=== PATIENT | female | born 1970 | race Caucasian/White ===

== ENCOUNTER → 2020-03-03 10:00 | Outpatient (BNVA) | payer SELFPAY | PROVIDERS: Visit Provider Nurse Practitioner Family | DX: S92.351A Displaced fracture of fifth metatarsal bone, right foot, initial encounter for closed fracture (principal); X58.XXXA Exposure to other specified factors, initial encounter; M79.671 Pain in right foot; M25.571 Pain in right ankle and joints of right foot | CPT/HCPCS: 73610; 73630 ==

== ENCOUNTER → 2020-03-10 14:06 | Outpatient (BNVA) | payer SELFPAY | PROVIDERS: Visit Provider Orthopaedic Surgery | DX: M79.671 Pain in right foot (principal) | CPT/HCPCS: 73630 ==

== ENCOUNTER 2020-03-10 14:57 | Outpatient (CLI) | payer SELFPAY | END 2020-03-10 14:58 | disposition home or self-care (01) | LOC: SPT 14:57 | PROVIDERS: Visit Provider Orthopaedic Surgery | DX: Z46.89 Encounter for fitting and adjustment of other specified devices (principal); S92.351D Displaced fracture of fifth metatarsal bone, right foot, subsequent encounter for fracture with routine healing; X58.XXXD Exposure to other specified factors, subsequent encounter | CPT/HCPCS: L4361 ==

== ENCOUNTER → 2020-03-29 13:43 | Outpatient (BNVA) | payer SELFPAY | PROVIDERS: Visit Provider Orthopaedic Surgery | DX: Z98.890 Other specified postprocedural states (principal); M47.816 Spondylosis without myelopathy or radiculopathy, lumbar region; Z11.59 Encounter for screening for other viral diseases | CPT/HCPCS: 73630; 87635 ==

== ENCOUNTER 2020-04-04 10:31 | Day surgery (SDC) | payer SELFPAY ==
[2020-03-30 13:33] VITALS: BMI 23.4
--- NOTE | 2020-03-30 13:42 | ANES.PREANE2 ---
Pre-Anesthetic Assessment Pre-Anesthetic Assessment: Height/Weight: Height 1.55 m Weight 56.245 kg Preop Diagnosis: right 5th metatarsal ORIF Proposed Procedure: Operation Date: 04/04/20 12:20 Proposed Procedures p ORIF 5th Metatarsal 39378 S92.35(Not Applicable) - Brown Sullivan DO Familial anesthetic complications: None Social: Social History: Tobacco and No alcohol Exam: Pre-Anes Outpt Exam: alert, oriented x 3, clear to auscultation bilaterally and regular rate & rhythm Airway: MP: 3 Dentition: Other (no teeth) Pulmonary: Pulmonary: COPD (2 L NC at night) GI: GI: GERD Neuropsych: Neuropsych: TIA (10-15 years ago) Anesthetic Plan: ASA status: 3 Anesthesia: General Risk of > 500 ml blood loss (7ml/kg in children): No PFSH Anesthesia PFSH: Medical History Anxiety COPD (chronic obstructive pulmonary disease) Fracture of fifth metatarsal bone of right foot Gastroesophageal reflux disease Hypertension Surgical History History of tonsillectomy and adenoidectomy Hx of section Hx of cholecystectomy Hx of colonoscopy (~2012) Hx of hernia repair Hx of tubal ligation Family History Father Cancer lung Heart disease Mother Heart disease Social History Smoking and tobacco status: current every day smoker cigarettes Packs smoked per day: 1 Years cigarettes smoked: 45 Second hand smoke exposure: Yes Alcohol intake: former Former alcohol use details: sober x 20 yrs Caregiver/support person: Yes Lives independently: Yes Household members: spouse and children Marital status: Current occupational status: unemployed History of recent travel: No Current gender identity: Female Data Anesthesia Cardiac Studies: No Data to Display
[2020-04-04] VITALS (12 sets, daily range): BP systolic 90–134; BP diastolic 71–100; PULSE 76–96; RESP 18–24; TEMP 36.4–36.8; O2SAT 90–100
--- NOTE | 2020-04-04 | XR_ITS ---
WS: [id number] INTRAOPERATIVE TECHNIQUE: 5 Spot fluoroscopic images for intraoperative purposes. FLUOROSCOPY TIME: 50.6 seconds CLINICAL INFORMATION: ORIF 5th metatarsal COMPARISON: None. FINDINGS: Cannulated screw fixation across the base of the fifth metatarsal. XR/XR foot RT min 3V* [id number] IMPRESSION: Images obtained for intraoperative purposes.
--- NOTE | 2020-04-04 | SCC_ITS ---
Procedure Done: CRPP 5th metatarsal base fracture 50.6 seconds of fluoroscopic guidance, for a cumulative dose of 0.86 mGy, was provided to Dr. Sullivan by the radiology department. C-arm images of the RIGHT foot were saved for the patient's permanent record. [facility]
[2020-04-04] MEDS: sodium chloride 0.9% 1,000 ML 30 ML IV (10:56)
--- NOTE | 2020-04-04 13:20 | W.PM.OPSUD ---
Surgery/Procedure H&P Update DATE OF PROCEDURE: April 04, 2020 DATE H&P PERFORMED: 03/29/20 H&P UPDATE INFORMATION: I have reviewed H&P completed within last 30 days, I have examined patient prior to procedure and No changes to prior documentation PREOP DIAGNOSIS: right 5th metatarsal ORIF PLANNED PROCEDURE: Operation Date: 04/04/20 12:00 Proposed Procedures p ORIF 5th Metatarsal 99527 S92.35(Not Applicable) - Brown Sullivan, DO
--- NOTE | 2020-04-04 13:31 | P.ANESUD_ITS ---
Pre-Anesthetic Update Pre-Anesthetic Assessment: Date of Surgery/Procedure: 04/04/20 Preop Kym gnosis: right 5th metatarsal ORIF Proposed Procedure: Operation Date: 04/04/20 12:00 Proposed Procedures p ORIF 5th Metatarsal 18909 S92.35(Not Applicable) - Brown Sullivan, DO Any changes to Pre-Anesthetic Assessment?: No Last Intake: Intake Last Liquid Date 04/03/20 Last Liquid Time 23:00 Last Solid Date 04/03/20 Last Solid Time 20:00 Vitals: Temperature 98.2 F 04/04/20 10:36 Temperature Source Temporal Artery S can 04/04/20 10:36 Pulse Rate 88 04/04/20 10:36 Respiratory Rate 18 04/04/20 10:36 Blood Pressure 115/100 04/04/20 10:36 Blood Pressure Alicia n 105 04/04/20 10:36 Pulse Oximetry 91 04/04/20 10:36 Oxygen Delivery Me thod 04/04/20 10:36 Exam: Pre-Anes Outpt Exam: alert, oriented x 3 and regular rate & rhythm Additional Exam Findings (including area of procedure): BBS, rhonchi--smoker Cardiac Studies: No Data to Display
--- NOTE | 2020-04-04 14:22 | PM.OP ---
Operative Report Date of procedure: April 04, 2020 Pre-op Diagnosis: right 5th metatarsal ORIF Post-op diagnosis: same Procedure Done: CRPP 5th metatarsal base fracture Surgeon: Brown Sullivan Anesthesia: MAC Estimated blood loss (mL): 5 Condition: stable Disposition: PACU Procedure: Patient was brought to the OR suite placed in supine position all areas impingement well-padded patient's prepped and draped normal sterile fashion. Stab incisions made at the base of the fifth metatarsal. Guidewire was placed AP lateral fluoroscopy ensured that the guidewire was improved position fracture was in good alignment. A 5 oh Tristian cannulated screw headless screw was placed AP lateral and oblique and sure that the hardware and fracture improved positions. Wound was irrigated and closed with nylon suture patient was placed back in her boot and transferred to the PACU in stable condition
--- NOTE | 2020-04-04 14:46 | SUR.PHASEI ---
1432 P T MORE ALERT WHEEZING ON EXHALE WITH DIMINISHED LUNG SOUNDS THRU OUT,VSS ALBUTERAL NEB GIVEN. VSS.
[2020-04-04] MEDS: oxyCODONE-APAP 5-325 mg Tablet PO (15:15)
--- NOTE | 2020-04-04 16:29 | SUR.PHASEII ---
1600: patient O2 at 92 on 2L
--- NOTE | 2020-04-04 16:30 | SUR.PHASEII ---
Patient has been instructed to take deep breaths and to wear her home oxygen when she gets home until at least tomorrow. She states she wears it at night and during the day sometimes when she feels short of breath.
--- NOTE | 2020-04-04 17:07 | PM.PACU ---
PACU note PACU note: VSS, struggled with SaO2 given COPD/smoking hx and home O2 Post-Anesthesia Exam: awake Disposition: discharged
[2020-04-04] MEDS: oxyCODONE-APAP 5-325 mg Tablet 3 TAB PO (17:20)
--- NOTE | 2020-04-04 17:29 | SUR.PHASEII ---
Dr. Manzano OK with patient going home to use Home O2 at 2L with sat at 93%. Patient states she feels like she can breathe well. Patient was given 3 [id number]/acetaminophen 325mg to take home with her. Her RX was electronically sent to [facility] in [place], which closes at 1700. patient did not leave ops until 1720.
== END 2020-04-04 17:20 | disposition home or self-care (01) ==
PROVIDERS: Visit Provider Orthopaedic Surgery
PROC: (CPT 28485; principal; 2020-04-04 12:00)
DX: S92.351A Displaced fracture of fifth metatarsal bone, right foot, initial encounter for closed fracture (principal); X58.XXXA Exposure to other specified factors, initial encounter; J44.9 Chronic obstructive pulmonary disease, unspecified; Z99.81 Dependence on supplemental oxygen; K21.9 Gastro-esophageal reflux disease without esophagitis; Z86.73 Personal history of transient ischemic attack (TIA), and cerebral infarction without residual deficits; I10 Essential (primary) hypertension; F17.210 Nicotine dependence, cigarettes, uncomplicated
CPT/HCPCS: 28485; 12345; 73630; 76000; C1713; J0690; J2250; J2370; J2405; J2704; J3010; J3490; J7030; J7611

== ENCOUNTER → 2020-05-17 13:16 | Outpatient (BNVA) | payer SELFPAY | PROVIDERS: Visit Provider Orthopaedic Surgery | DX: S92.351A Displaced fracture of fifth metatarsal bone, right foot, initial encounter for closed fracture (principal); X58.XXXA Exposure to other specified factors, initial encounter | CPT/HCPCS: 73630 ==

== ENCOUNTER → 2020-06-28 14:05 | Outpatient (BNVA) | payer SELFPAY | PROVIDERS: PCP Family Medicine; Visit Provider Orthopaedic Surgery | DX: S92.351A Displaced fracture of fifth metatarsal bone, right foot, initial encounter for closed fracture (principal); X58.XXXA Exposure to other specified factors, initial encounter | CPT/HCPCS: 73630 ==

== ENCOUNTER → 2020-08-09 14:17 | Outpatient (BNVA) | payer SELFPAY | PROVIDERS: PCP Family Medicine; Visit Provider Orthopaedic Surgery | DX: S92.351A Displaced fracture of fifth metatarsal bone, right foot, initial encounter for closed fracture (principal); X58.XXXA Exposure to other specified factors, initial encounter | CPT/HCPCS: 73630 ==

== ENCOUNTER 2020-08-10 15:08 | Outpatient (CLI) | payer SELFPAY ==
--- NOTE | 2020-08-10 15:30 | CT_ITS ---
WS: [id number] CT RIGHT FOOT WITHOUT CONTRAST. 3-D IMAGING ALSO SUBMITTED. HISTORY: S92.351A - Displaced fracture of fifth metatarsal bone, right foot, initial encounter for cl osed fracture Technique: All CT scans at [facility] use at least one of these dose optimization techniq ues: automated exposure control; mA and/or kV adjustment per patient size (includes targeted exams wh ere dose is matched to clinical indication); or iterative reconstruction. DLP: 870.87 mGycm COMPARISON: 08/09/2020, 06/28/2020 Screw fixation through the fifth metatarsal. There is a small gap at the fracture site suggests there may be incomplete healing. The gap is less than 2 mm. Screw remains normally positioned along the me tatarsal diaphysis. No osteomyelitis or bone destruction is identified. No abnormality appreciated by CT. CT/CT foot RT wo con* [id number] IMPRESSION: 1. Screw fixation fifth proximal metatarsal fracture appears in good alignment . 2. Persistent gap may represent nonfusion at the fracture site but the gap is less than 2 mm.
== END 2020-08-10 15:09 | disposition home or self-care (01) ==
PROVIDERS: PCP Family Medicine; Visit Provider Orthopaedic Surgery
DX: S92.351A Displaced fracture of fifth metatarsal bone, right foot, initial encounter for closed fracture (principal); X58.XXXA Exposure to other specified factors, initial encounter
CPT/HCPCS: 73700

== ENCOUNTER → 2020-10-26 14:32 | Outpatient (BNVA) | payer SELFPAY | PROVIDERS: PCP Family Medicine; Visit Provider Podiatrist Foot & Ankle Surgery | DX: M79.671 Pain in right foot (principal) | CPT/HCPCS: 73630 ==

== ENCOUNTER 2021-03-23 11:44 | Inpatient (IN) | payer SELFPAY ==
[2021-03-23] VITALS (9 sets, daily range): BP systolic 116–160; BP diastolic 77–94; PULSE 81–97; RESP 15–24; TEMP 36.2–36.7; O2SAT 65–97; BMI 23.0
--- NOTE | 2021-03-23 12:36 | CT_ITS ---
WS: [id number] Exam: CT angio chest PE protcl [id number] Date/Time of Exam: 03/23/2021 2:46 PM Reason For Exam: dyspnea DLP: 487.[address] scans at [facility] use at least one of these dose optimization techniques: automated e xposure control; mA and/or kV adjustment per patient size (includes targeted exams where dose is matc hed to clinical indication); or iterative reconstruction. CTA of the chest. No sign of acute PE. The central pulmonary arteries are clear. The thoracic aorta is normal in calibe r. The airway is patent. The lungs are clear and fully expanded. No suspicious pulmonary mass or nodu le. No significant lymphadenopathy in the chest. No pleural or pericardial effusion. Prominent thyroi d gland. CT sections the upper abdomen show signs of previous cholecystectomy. Old fracture of the po sterior right eighth rib. Remaining bony structures are unremarkable. The chest wall is intact. CT/CT angio chest PE protcl [id number] IMPRESSION: 1. No sign of acute PE. 2. No mass, lymphadenopathy or other significant finding in the chest.
--- NOTE | 2021-03-23 12:36 | ECG_ITS ---
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 Measurements Intervals [place] Rate: 88 P: 70 [place]: 126 QRS: 49 QRSD: 74 T: 78 QT: 359 QTc: 436 Interpretive Statements SINUS RHYTHM No previous ECG available for comparison Electronically Signed On 03-24-2021 16:13:08 MATHEMATICAL TECHNICIAN by Alysha Garcia M.D. [email or web address]
--- NOTE | 2021-03-23 12:36 | XR_ITS ---
WS: [id number] Exam: XR chest 1V portable [id number] Date/Time of Exam: 03/23/2021 12:36 PM Reason For Exam: dyspnea/cough Comparison 08/11/2018. The lungs are hyperinflated and clear. Normal cardiomediastinal silhouette. No pleural effusions. Reg ional bony elements are intact. Monitoring leads superimpose the chest. XR/XR chest 1V portable [id number] IMPRESSION: 1. Pulmonary hyperinflation which might indicate obstructive lung disease. No a cute process.
--- NOTE | 2021-03-23 12:51 | W.ED.SOB ---
HPI - SOB/Dyspnea General: Chief Complaint: Shortness of Breath/Dyspnea Stated Complaint: COPD:O2 IN 70'S,DIFF BREATHING,STATES PNEUMONIA? Time Seen by Provider: 03/23/21 12:36 History of Present Illness: HPI Narrative: 50-year-old female presents emergency room with shortness of breath productive cough. She is seen really any symptoms for the last couple months gotten worse recently. She is having to wear oxygen chronically. She usually is uses it as needed, she started at 2 to 3 L now she is up to 5 L on arrival here. She is awake and alert having difficult time getting a good oxygen saturation to track peripherally centrally.she does not appear cyanotic and she is only mildly dyspneic. She has noticed perioral cyanosis. She denies any chest pain. She has not been vaccinated for Covid nor she previously been known to have Covid. No vomiting or diarrhea. MD elicited complaint: shortness of breath and cough Pertinent past history: COPD Onset (ago): week(s) Timing: constant Severity: moderate Exacerbating factors: exertion and coughing Relieving factors: oxygen and rest Known history of: COPD Associated symptoms: Reports chest congestion and cough; Deny abdominal pain, chest pain, diaphoresis, dizziness, extremity pain, fever(s), hemoptysis, lightheadedness, myalgias, nausea, orthopnea, palpitations, paresthesias, polydipsia, polyuria, rash, sense of impending doom, syncope or vomiting Treatment prior to arrival: oxygen and bronchodilator Review of Systems Const: Denies: fever(s) or diaphoresis ENMT: Denies: throat pain, ear or mastoid pain, nasal discharge or nasal congestion Card: Denies: chest pain, palpitations, lightheadedness, syncope or orthopnea Resp: Reports: chest congestion; Denies: hemoptysis GI: Denies: abdominal pain, nausea or vomiting : Denies: flank pain, difficulty voiding, dysuria, urinary frequency or urinary urgency Musc: Denies: extremity pain Skin/Breast: Denies: rash or pruritus Neuro: Denies: dizziness Endo: Denies: polyuria or polydipsia PFS ED PFSH: Medical History (Updated 03/28/21 @ 15:18 by Kentrell Garcia DO) Anxiety COPD (chronic obstructive pulmonary disease) Fracture of fifth metatarsal bone of right foot Gastroesophageal reflux disease Hypertension Right ankle pain Right foot pain Tenosynovitis of foot Surgical History History of tonsillectomy and adenoidectomy Hx of section Hx of cholecystectomy Hx of colonoscopy (~2012) Hx of hernia repair Hx of tubal ligation Family History Father Cancer lung Heart disease Mother Heart disease Social History (Updated 03/23/21 @ 16:11 by Haider Velasco MD) Smoking and tobacco status: current every day smoker cigarettes Packs smoked per day: 1 Years cigarettes smoked: 45 Second hand smoke exposure: Yes Alcohol intake: former Former alcohol use details: sober x 20 yrs Caregiver/support person: Yes Lives independently: Yes Household members: spouse and children Marital status: service: No Current occupational status: unemployed History of recent travel: No Current gender identity: Female Special lauryn needs: No Agree to transfusion: No Financial difficulty paying for basics: Very Hard Physical Exam Const: COMMON NORMALS: no acute distress GENERAL APPEARANCE: cooperative and comfortable ORIENTATION/CONSCIOUSNESS: Yes awake, Yes oriented to person, Yes oriented to place and Yes oriented to time HENMT: COMMON NORMALS: normocephalic, atraumatic and hearing grossly normal bilaterally HEAD & SCALP: normocephalic and atraumatic Neck/C-Spine: COMMON NORMALS: no JVD Resp: AUSCULTATION: rhonchi, wheezes and diminished lung sounds Cardio: COMMON NORMALS: no JVD, regular rate, regular rhythm and No murmurs present (Cardio) RATE: regular rate RHYTHM: regular rhythm GI: COMMON NORMALS: Soft to palpation and No hepatosplenomegaly present AUSCULTATION: Yes normoactive bowel sounds PALPATION: Yes Soft to palpation, No Tenderness to palpation present (GI), No Guarding due to palpation present (GI) and Yes No hepatosplenomegaly present Extremity: COMMON NORMALS: normal to inspection, capillary refill normal, no clubbing, cyanosis or edema, no calf tenderness and no pedal edema Neuro: SENSORIUM/ORIENTATION: Yes oriented to person, Yes oriented to place and Yes oriented to time Skin: COMMON NORMALS: no rashes or lesions noted GENERAL SKIN EXAM: no rashes or lesions noted Course Vital Signs: Vital signs: Vital Signs Temperature 97.3 F L 03/25/21 15:28 Pulse Rate 69 03/25/21 15:28 Respiratory Rate 17 03/25/21 15:28 Blood Pressure 106/62 03/25/21 15:28 Pulse Oximetry 94 03/25/21 15:28 MDM - SOB/Dyspnea MDM Narrative: Medical decision making narrative: Acute exacerbation of COPD with hypercapnic respiratory failure will admit discussed with hospitalist orders written Lab Data: Labs: Lab Results 03/23/21 03/23/21 03/23/21 12:53 12:53 12:53 WBC 9.9 10^3/uL 10^3/ uL (4.0-10.0) RBC 5.00 10^6/uL 10^6 /uL (4.1-5.3) Hgb 15.6 g/dL H g/dL (11.5-15.3) Hct 47.6 % H % (37.0-47.0) MCV 95.2 fl fl (81-99) MCH 31.2 pg pg (28.0-34.0) MCHC 32.8 g/dL g/dL (30.0-36.0) RDW 15.3 % H % (12.1-15.1) Plt Count 182 10^3/cmm 10^3 /cmm (130-400) MPV 10.9 fL H fL (7.4-10.4) Neut % (Auto) 63.4 % % Lymph % (Auto) 26.9 % % [place] % (Auto) 5.1 % % Eos % (Auto) 3.5 % % Baso % (Auto) 0.5 % % Neut # (Auto) 6.28 10^3/uL 10^3 /uL (1.8-7.7) Lymph # (Auto) 2.7 10^3/uL 10^3/ uL (0.8-4.8) [place] # (Auto) 0.5 10^3/uL 10^3/ uL (0.2-0.9) Eos # (Auto) 0.4 10^3/uL 10^3/ uL (0.0-0.8) Baso # (Auto) 0.1 10^3/uL 10^3/ uL (0.0-0.1) Nucleated RBC % (a uto) 0 % % Nucleated RBCs # 0.0 /100WBC /100W BC D-Dimer Specimen Type Sample Site ABG pH ABG pCO2 ABG pO2 ABG HCO3 ABG O2 Saturation ABG Base Excess Braxton Test A-a O2 Gradient Hematocrit Hgb O2 Saturation Carboxyhemoglobin Methemoglobin Total Hemoglobin Ionized Calcium O2 Delivery Device O2 Liters/Min FiO2 Boil Off Machine Operator Cloth ID Sodium 139 mmol/L mmol/L (136-145) Potassium 3.4 mmol/L L mmol /L (3.5-5.1) Chloride 96 mmol/L L mmol/ L (98-107) Carbon Dioxide 30 mmol/L H mmol/ L (22-29) Anion Gap 16.4 (5-19) BUN 5 mg/dL L mg/dL (6-20) Creatinine 0.6 mg/dL mg/dL (0.5-0.9) GFR Calculation 105.0 mL/min mL/m in (90-130) Glucose 100 mg/dL mg/dL (65-115) Calculated Osmolal ity 285 mOsm/kg mOsm/ kg (285-295) Lactic Acid 0.8 mmol/L mmol/L (0.5-2.2) Calcium 8.8 mg/dL mg/dL (8.5-10.5) Iron TIBC % Saturation Unsat Iron Binding Total Bilirubin 0.5 mg/dL mg/dL (0.15-1.2) AST 12 U/L U/L (0-32) ALT 9 U/L U/L (0-33) Alkaline Phosphata se 81 IU/L IU/L (35-105) C-Reactive Protein 5.0 mg/L H mg/L (0.0-4.9) NT-Pro-B Natriuret Pep Total Protein 7.5 g/dL g/dL (6.6-8.7) Albumin 4.3 g/dL g/dL (3.5-5.2) Globulin 3.2 g/dL g/dL (1.3-4.6) Procalcitonin TSH Urine Color Urine Appearance Urine pH Ur Specific Gravit y Urine Protein Urine Glucose (UA) Urine Ketones Urine Blood Urine Nitrate Urine Bilirubin Urine Urobilinogen Ur Leukocyte [place] Nasal/Oral COVID-1 9 PCR Influenza Type A A g Influenza Type B A g SARS-CoV-2 Ag (Rap id) 03/23/21 03/23/21 03/23/21 12:53 12:53 12:53 WBC RBC Hgb Hct MCV MCH MCHC RDW Plt Count MPV Neut % (Auto) Lymph % (Auto) [place] % (Auto) Eos % (Auto) Baso % (Auto) Neut # (Auto) Lymph # (Auto) [place] # (Auto) Eos # (Auto) Baso # (Auto) Nucleated RBC % (a uto) Nucleated RBCs # D-Dimer 0.41 ug/mIFEU ug/ mIFEU (0-0.59) Specimen Type Sample Site ABG pH ABG pCO2 ABG pO2 ABG HCO3 ABG O2 Saturation ABG Base Excess Braxton Test A-a O2 Gradient Hematocrit Hgb O2 Saturation Carboxyhemoglobin Methemoglobin Total Hemoglobin Ionized Calcium O2 Delivery Device O2 Liters/Min FiO2 Boil Off Machine Operator Cloth ID Sodium Potassium Chloride Carbon Dioxide Anion Gap BUN Creatinine GFR Calculation Glucose Calculated Osmolal ity Lactic Acid Calcium Iron 47 ug/dL ug/dL (37-145) TIBC 296 mcg/dl mcg/dl % Saturation 15.8 % L % (20-50) Unsat Iron Binding 249 ug/dL ug/dL (112-347) Total Bilirubin AST ALT Alkaline Phosphata se C-Reactive Protein NT-Pro-B Natriuret Pep 610 pg/mL H pg/mL (0-125) Total Protein Albumin Globulin Procalcitonin 0.05 ng/mL ng/mL (0-0.5) TSH 1.56 uIU/mL uIU/m L Cancelled (0.27-4.20) Urine Color Urine Appearance Urine pH Ur Specific Gravit y Urine Protein Urine Glucose (UA) Urine Ketones Urine Blood Urine Nitrate Urine Bilirubin Urine Urobilinogen Ur Leukocyte [place] Nasal/Oral COVID-1 9 PCR Influenza Type A A g Influenza Type B A g SARS-CoV-2 Ag (Rap id) 03/23/21 03/23/21 03/23/21 13:30 15:55 15:55 WBC RBC Hgb Hct MCV MCH MCHC RDW Plt Count MPV Neut % (Auto) Lymph % (Auto) [place] % (Auto) Eos % (Auto) Baso % (Auto) Neut # (Auto) Lymph # (Auto) [place] # (Auto) Eos # (Auto) Baso # (Auto) Nucleated RBC % (a uto) Nucleated RBCs # D-Dimer Specimen Type Arterial Sample Site Radial, left ABG pH 7.38 (7.35-7.45) ABG pCO2 61.5 mmHg H* mmHg (35-45) ABG pO2 57.5 mmHg L mmHg (80.0-100.0) ABG HCO3 36.4 mmol/L H mmo l/L (22-26) ABG O2 Saturation 91.5 ABG Base Excess 8.6 mmol/L H mmol /L (-2.0-2.0) Braxton Test Pos A-a O2 Gradient 24.3 mmHg H mmHg (5-10) Hematocrit 46.9 % % (37-47) Hgb O2 Saturation 82.7 % L % (95-100) Carboxyhemoglobin 9.4 %THgb %THgb (0.4-20.1) Methemoglobin 0.2 % L % (0.4-1.5) Total Hemoglobin 15.3 g/dL g/dL (12-16) Ionized Calcium 1.2 mmol/L mmol/L (1.1-1.4) O2 Delivery Device Nc O2 Liters/Min 6.0 % % FiO2 44.0 % % Boil Off Machine Operator Cloth ID Gd Sodium 142.0 mmol/L mmol /L (131-143) Potassium 3.1 mmol/L L mmol /L (3.5-5.0) Chloride Carbon Dioxide Anion Gap BUN Creatinine GFR Calculation Glucose 117.0 mg/dL H mg/ dL (70-115) Calculated Osmolal ity Lactic Acid Calcium Iron TIBC % Saturation Unsat Iron Binding Total Bilirubin AST ALT Alkaline Phosphata se C-Reactive Protein NT-Pro-B Natriuret Pep Total Protein Albumin Globulin Procalcitonin TSH Urine Color Urine Appearance Urine pH Ur Specific Gravit y Urine Protein Urine Glucose (UA) Urine Ketones Urine Blood Urine Nitrate Urine Bilirubin Urine Urobilinogen Ur Leukocyte [place] Nasal/Oral COVID-1 9 PCR Influenza Type A A g Negative (Negative) Influenza Type B A g Negative (Negative) SARS-CoV-2 Ag (Rap id) Negative (Negative) 03/23/21 03/23/21 16:00 19:35 WBC RBC Hgb Hct MCV MCH MCHC RDW Plt Count MPV Neut % (Auto) Lymph % (Auto) [place] % (Auto) Eos % (Auto) Baso % (Auto) Neut # (Auto) Lymph # (Auto) [place] # (Auto) Eos # (Auto) Baso # (Auto) Nucleated RBC % (a uto) Nucleated RBCs # D-Dimer Specimen Type Sample Site ABG pH ABG pCO2 ABG pO2 ABG HCO3 ABG O2 Saturation ABG Base Excess Braxton Test A-a O2 Gradient Hematocrit Hgb O2 Saturation Carboxyhemoglobin Methemoglobin Total Hemoglobin Ionized Calcium O2 Delivery Device O2 Liters/Min FiO2 Boil Off Machine Operator Cloth ID Sodium Potassium Chloride Carbon Dioxide Anion Gap BUN Creatinine GFR Calculation Glucose Calculated Osmolal ity Lactic Acid Calcium Iron TIBC % Saturation Unsat Iron Binding Total Bilirubin AST ALT Alkaline Phosphata se C-Reactive Protein NT-Pro-B Natriuret Pep Total Protein Albumin Globulin Procalcitonin TSH Urine Color Yellow (Yellow) Urine Appearance Clear (CLEAR) Urine pH 6.5 (5-7) Ur Specific Gravit y 1.010 (1.005-1.030) Urine Protein Neg (Negative) Urine Glucose (UA) Norm (Normal) Urine Ketones Negative (Negative) Urine Blood Neg (Negative) Urine Nitrate Negative (Negative) Urine Bilirubin Neg (Negative) Urine Urobilinogen Neg mg/dL mg/dL (Negative) Ur Leukocyte [place] Negative (Negative) Nasal/Oral COVID-1 9 PCR Not detected Influenza Type A A g Influenza Type B A g SARS-CoV-2 Ag (Rap id) Discharge Plan Discharge Patient Disposition: Admitted As Inpatient Admit Provider: Haider Velasco Clinical Impression: Acute on chronic respiratory failure with hypoxia and hypercapnia, Acute exacerbation of chronic obstructive airways disease, HTN (hypertension) Condition: Stable Discharge Diet: Cardiac Discharge Activity: Resume usual activity Coding Level of Care Code ED Senior Net Application Developer for Chg Fwd Exam Comprehensive
[2021-03-23] MEDS: dexamethasone 10 mg/mL INJ IVP (12:58)
[2021-03-23 13:11] LABS: Basophils # 0.1 10^3/uL (0.0-0.1); Basophils % 0.5 %; Eosinophils # 0.4 10^3/uL (0.0-0.8); Eosinophils % 3.5 %; Hematocrit 47.6 % (37.0-47.0); Hemoglobin 15.6 g/dL (11.5-15.3); Lymphocytes # 2.7 10^3/uL (0.8-4.8); Lymphocytes % 26.9 %; Mean Corpuscular HGB Conc 32.8 g/dL (30.0-36.0); Mean Corpuscular Hemoglobin 31.2 pg (28.0-34.0); Mean Corpuscular Volume 95.2 fl (81-99); Mean Platelet Volume 10.9 fL (7.4-10.4); Monocytes # 0.5 10^3/uL (0.2-0.9); Monocytes % 5.1 %; Neutrophils # 6.28 10^3/uL (1.8-7.7); Neutrophils % 63.4 %; Nucleated Red Blood Cells % 0 %; Platelet Count 182 10^3/cmm (130-400); Red Cell Distribution Width 15.3 % (12.1-15.1); White Blood Count 9.9 10^3/uL (4.0-10.0)
[2021-03-23] MEDS: terbutaline 1 mg/mL INJ 0.25 MG SUBCUT (13:15)
[2021-03-23 13:34] LABS: Alanine Aminotransferase 9 U/L (0-33); Albumin Level 4.3 g/dL (3.5-5.2); Alkaline Phosphatase 81 IU/L (35-105); Anion Gap 16.4 (5-19); Aspartate Amino Transferase 12 U/L (0-32); Blood Urea Nitrogen 5 mg/dL (6-20); Calcium 8.8 mg/dL (8.5-10.5); Carbon Dioxide 30 mmol/L (22-29); Chloride 96 mmol/L (98-107); Globulin 3.2 g/dL (1.3-4.6); Glucose 100 mg/dL (65-115); Osmolality Calculated 285 mOsm/kg (285-295); Potassium 3.4 mmol/L (3.5-5.1); Sodium 139 mmol/L (136-145); Total Bilirubin 0.5 mg/dL (0.15-1.2); Total Protein 7.5 g/dL (6.6-8.7)
[2021-03-23 13:40] LABS: D Dimer 0.41 ug/mIFEU (0-0.59)
[2021-03-23 13:45] LABS: ABG PH Result 7.38 (7.35-7.45); Alveolar-Arterial Oxygen Gradi 24.3 mmHg (5-10); Arterial Blood Gas Hematocrit 46.9 % (37-47); Base Excess ABG 8.6 mmol/L (-2.0-2.0); Blood Gas Allen Test Pos; Blood Gas Operator Identificat GD; Blood Gas Sample Site Radial, left; Blood Gas Sample Type Arterial; Carboxyhemoglobin 9.4 %THgb (0.4-20.1); HCO3 ABG 36.4 mmol/L (22-26); HGB O2 Sat 82.7 % (95-100); Ionized Calcium Level - ABG 1.2 mmol/L (1.1-1.4); Methemoglobin 0.2 % (0.4-1.5); Oxygen Device NC; Oxygen Saturation ABG 91.5; PO2 ABG 57.5 mmHg (80.0-100.0); Potassium Level - ABG 3.1 mmol/L (3.5-5.0); Total Hemoglobin 15.3 g/dL (12-16)
[2021-03-23 13:46] LABS: ABG PCO2 61.5 mmHg (35-45)
[2021-03-23 13:55] LABS: Lactic Sepsis W/Reflex 0.8 mmol/L (0.5-2.2)
[2021-03-23] MEDS: iohexol 350 mg/mL 100 mL Btl IV (14:56)
[2021-03-23] MEDS: amlodipine 10 mg Tablet PO (16:04)
[2021-03-23] MEDS: levoFLOXacin 500 mg Tablet PO (16:04)
[2021-03-23] MEDS: enoxaparin 40 mg/0.4 mL Syringe SUBCUT (16:05)
--- NOTE | 2021-03-23 16:09 | P.HP_ITS ---
Providers/Chief Complaint Primary Care Provider: Reena López MD Chief Complaint: COPD:O2 IN 70'S,DIFF BREATHING,STATES PNEUMONIA? History of Present Illness Estelle Pascual is a 50 year old female with past medical history of COPD on 2 L oxygen nightly, hypertension presented to the ER today with worsening difficulty in breathing over last 2 weeks. Shortness of breath gets worse on minimal exertion currently. Not associated with laying down in bed. Denies any chest pain, fever, expectoration, diarrhea. History concerning for cough. Patient is a chronic smoker and smokes 1 pack/day. In the ER patient was found to be hypercapnic so was placed on BiPAP. On examination patient is awake and alert oriented. Not vaccinated for COVID-19 or flu. Review of Systems General: Reports: 10 or more systems reviewed and unremarkable except in HPI and below Const: Denies: fever(s), chills, body aches, change in appetite, change in weight, malaise, night sweats, diaphoresis, change in sleep pattern, daytime sleepiness or snoring Eyes: Denies: change in vision, blurry vision, photophobia, eye discomfort or eye discharge ENMT: Denies: throat pain, enlarged tonsils, hoarseness, mouth pain, oral sores, dry mouth, tinnitus, nasal congestion or post nasal drip Card: Denies: chest pain, palpitations, irregular heart rhythm, edema, swelling of feet/ankles, lightheadedness, syncope, pre-syncope, dyspnea on e xertion, orthopnea, leg pain with exertion or acrocyanosis Resp: Denies: dyspnea, productive cough, non-productive cough, wheezing, stridor, pain on inspiration, change in phlegm color, hemoptysis or chest congestion GI: Denies: abdominal pain, nausea, vomiting, hematemesis, coffee ground emesis, dysphagia, heartburn, diarrhea, constipation, bloating, GI cramping, change in bowel habits, pain on defecation, hematochezia or melena : Denies: flank pain, dysuria, urinary frequency, urinary urgency, urinary hesitancy, nocturia or hematuria Musc: Denies: neck pain, back pain, extremity pain, joint pain, joint swelling, joint redness, joint stiffness or limited range of motion Neuro: Denies: headache(s), numbness in extremities, weakness in extremities, sensory changes, lack of coordination, difficulty walking, frequent falls, dizziness, vertigo, confusion, Slurred speech present, difficulty communicating thoughts or seizure-like activity Psych: Denies: anxiety, depression, mood swings, panic attacks, hopelessness or irritability Endo: Denies: polyuria, polydipsia, tired all the time, cold intolerance, excessive sweating, flushing or heat intolerance Tanner/Lymph: Denies: easy bruising or easy bleeding All/Imm: Denies: tongue swelling, facial swelling or acute wheezing Medications/Allergies Home Medications Medication Instructions Recorded Confirmed Last Taken Type albuterol sulfate 2.5 mg INHALATION QID PRN #180 ml 03/03/20 03/23/21 04/04/20 06:00 Rx albuterol sulfate 90 mcg/actuation 2 puff INHALATION QID PRN #18 gm 03/03/20 03/23/21 1 Day Ago Rx aerosol inhaler ~04/03/20 oxygen and concentrator #1 ea 03/03/20 03/23/21 Unknown Rx Allergies Allergy/AdvReac Type Severity Reaction Status Date / Time hydrocodone Allergy ADR-Vomitin Verified 03/23/21 09:40 g tramadol Allergy ADR-Itching Verified 03/23/21 09:40 PFSH Acute PFSH: Medical History (Updated 03/23/21 @ 16:12 by Haider Velasco MD) Anxiety COPD (chronic obstructive pulmonary disease) Fracture of fifth metatarsal bone of right foot Gastroesophageal reflux disease Hypertension Right ankle pain Right foot pain Tenosynovitis of foot Surgical History History of tonsillectomy and adenoidectomy Hx of section Hx of cholecystectomy Hx of colonoscopy (~2012) Hx of hernia repair Hx of tubal ligation Family History Father Cancer lung Heart disease Mother Heart disease Social History (Updated 03/23/21 @ 16:11 by Haider Velasco MD) Smoking and tobacco status: current every day smoker cigarettes Packs smoked per day: 1 Years cigarettes smoked: 45 Second hand smoke exposure: Yes Alcohol intake: former Former alcohol use details: sober x 20 yrs Caregiver/support person: Yes Lives independently: Yes Household members: spouse and children Marital status: service: No Current occupational status: unemployed History of recent travel: No Current gender identity: Female Special lauryn needs: No Agree to transfusion: No Financial difficulty paying for basics: Very Hard Vitals/I&O/Wt Last Vital Signs Temp 97.2 F L 03/23/21 12:34 Pulse 91 03/23/21 14:21 Resp 24 H 03/23/21 12:34 BP 160/94 03/23/21 12:34 Pulse Ox 95 03/23/21 14:21 Weight last 48 hrs Weight 57.153 kg Physical Exam Narrative: EXAM NARRATIVE: General: No acute distress, AO x3, currently on examination on BiPAP HEENT: PERRLA, pupils bilaterally equal and reactive Chest: Bilateral bronchial breath sounds, rhonchi diffuse present all over lung menjivar, equal good air entry bilaterally CVS: S1-S2 regular, no murmurs, no tachycardia, no gallops, no rubs Abdomen: Soft, nontender, no organomegaly, bowel sounds present Neuro: No focal deficits, no facial deformity, AO x3, power 5/5 in all limbs Data : 03/23/21 12:53 03/23/21 12:53 Other Labs: Laboratory Results WBC 9.9 10^3/uL (4.0-10.0) 03/23/21 12:53 RBC 5.00 10^6/uL (4.1-5.3) 03/23/21 12:53 Hgb 15.6 g/dL (11.5-15.3) H 03/23/21 12:53 Hct 47.6 % (37.0-47.0) H 03/23/21 12:53 MCV 95.2 fl (81-99) 03/23/21 12:53 MCH 31.2 pg (28.0-34.0) 03/23/21 12:53 MCHC 32.8 g/dL (30.0-36.0) 03/23/21 12:53 RDW 15.3 % (12.1-15.1) H 03/23/21 12:53 Plt Count 182 10^3/cmm (130-400) 03/23/21 12:53 MPV 10.9 fL (7.4-10.4) H 03/23/21 12:53 Neut % (Auto) 63.4 % 03/23/21 12:53 Lymph % (Auto) 26.9 % 03/23/21 12:53 [place] % (Auto) 5.1 % 03/23/21 12:53 Eos % (Auto) 3.5 % 03/23/21 12:53 Baso % (Auto) 0.5 % 03/23/21 12:53 Neut # (Auto) 6.28 10^3/uL (1.8-7.7) 03/23/21 12:53 Lymph # (Auto) 2.7 10^3/uL (0.8-4.8) 03/23/21 12:53 [place] # (Auto) 0.5 10^3/uL (0.2-0.9) 03/23/21 12:53 Eos # (Auto) 0.4 10^3/uL (0.0-0.8) 03/23/21 12:53 Baso # (Auto) 0.1 10^3/uL (0.0-0.1) 03/23/21 12:53 Nucleated RBC % (auto) 0 % 03/23/21 12:53 Nucleated RBCs # 0.0 /100WBC 03/23/21 12:53 D-Dimer 0.41 ug/mIFEU (0-0.59) 03/23/21 12:53 Specimen Type Arterial 03/23/21 13:30 Sample Site Radial, left 03/23/21 13:30 ABG pH 7.38 (7.35-7.45) 03/23/21 13:30 ABG pCO2 61.5 mmHg (35-45) H* 03/23/21 13:30 ABG pO2 57.5 mmHg (80.0-100.0) L 03/23/21 13:30 ABG HCO3 36.4 mmol/L (22-26) H 03/23/21 13:30 ABG O2 Saturation 91.5 03/23/21 13:30 ABG Base Excess 8.6 mmol/L (-2.0-2.0) H 03/23/21 13:30 Braxton Test Pos 03/23/21 13:30 A-a O2 Gradient 24.3 mmHg (5-10) H 03/23/21 13:30 Hematocrit 46.9 % (37-47) 03/23/21 13:30 Hgb O2 Saturation 82.7 % (95-100) L 03/23/21 13:30 Carboxyhemoglobin 9.4 %THgb (0.4-20.1) 03/23/21 13:30 Methemoglobin 0.2 % (0.4-1.5) L 03/23/21 13:30 Total Hemoglobin 15.3 g/dL (12-16) 03/23/21 13:30 Sodium 142.0 mmol/L (131-143) 03/23/21 13:30 Potassium 3.1 mmol/L (3.5-5.0) L 03/23/21 13:30 Glucose 117.0 mg/dL (70-115) H 03/23/21 13:30 Ionized Calcium 1.2 mmol/L (1.1-1.4) 03/23/21 13:30 O2 Delivery Device Nc 03/23/21 13:30 O2 Liters/Min 6.0 % 03/23/21 13:30 FiO2 44.0 % 03/23/21 13:30 Basket Weaver ID Gd 03/23/21 13:30 Sodium 139 mmol/L (136-145) 03/23/21 12:53 Potassium 3.4 mmol/L (3.5-5.1) L 03/23/21 12:53 Chloride 96 mmol/L (98-107) L 03/23/21 12:53 Carbon Dioxide 30 mmol/L (22-29) H 03/23/21 12:53 Anion Gap 16.4 (5-19) 03/23/21 12:53 BUN 5 mg/dL (6-20) L 03/23/21 12:53 Creatinine 0.6 mg/dL (0.5-0.9) 03/23/21 12:53 GFR Calculation 105.0 mL/min (90-130) 03/23/21 12:53 Glucose 100 mg/dL (65-115) 03/23/21 12:53 Calculated Osmolality 285 mOsm/kg (285-295) 03/23/21 12:53 Lactic Acid 0.8 mmol/L (0.5-2.2) 03/23/21 12:53 Calcium 8.8 mg/dL (8.5-10.5) 03/23/21 12:53 Total Bilirubin 0.5 mg/dL (0.15-1.2) 03/23/21 12:53 AST 12 U/L (0-32) 03/23/21 12:53 ALT 9 U/L (0-33) 03/23/21 12:53 Alkaline Phosphatase 81 IU/L (35-105) 03/23/21 12:53 C-Reactive Protein 5.0 mg/L (0.0-4.9) H 03/23/21 12:53 Total Protein 7.5 g/dL (6.6-8.7) 03/23/21 12:53 Albumin 4.3 g/dL (3.5-5.2) 03/23/21 12:53 Globulin 3.2 g/dL (1.3-4.6) 03/23/21 12:53 Impressions Chest CTA 03/23/21 12:36 IMPRESSION: 1. No sign of acute PE. 2. No mass, lymphadenopathy or other significant finding in the chest. Chest X-Ray 03/23/21 12:36 IMPRESSION: 1. Pulmonary hyperinflation which might indicate obstructive lung disease. No acute process. Micro: Microbiology 03/23/21 13:53 Blood Culture - Preliminary Blood SPECIMEN COLLECTED 03/23/21 12:53 Blood Culture - Preliminary Blood SPECIMEN COLLECTED A&P Assessment and plan (1) Acute on chronic respiratory failure with hypoxia and hypercapnia: Status: Acute (2) COPD (chronic obstructive pulmonary disease): Status: Acute Qualifiers: COPD type: unspecified COPD Qualified Code(s): J44.9 - Chronic obstructive pulmonary disease, unspecified (3) Hypertension: Status: Acute Additional A&P Information Acute on chronic hypoxic and hypercapnic respiratory failure: ABG appreciated. Most likely secondary to COPD exacerbation. Bacterial infection less likely currently. D-dimer negative. CTA done in the ER appreciated. DuoNebs every 6 hour, budesonide twice daily. Solu-Medrol 40 mg IV every 8 hourly. We will try to wean quickly. Check urine Legionella, bacterial antigen, sputum culture. For now start patient on Levaquin 500 mg daily for next 5 days. Check flu swab, COVID-19 antigen and PCR sent out from the ER. Isolation precautions. Oxygen supplementation keeping saturation over 88%. Hypertension: Goal blood pressure less than 140/90 mmHg. Patient not on any antihypertensives at home. Start on amlodipine 10 mg daily, metoprolol 25 mg twice daily. Chronic hypertension not on medications. Check echocardiogram for diastolic function and right ventricular function. Full code. Nicotine patch. Lovenox for DVT prophylaxis. Famotidine for PUD prophylaxis. Attestations Medical Necessity Statement*: Admission for more than 2 midnights for management of acute on chronic hypercapnic hypoxic respiratory failure secondary to COPD exacerbation Time Spent in Patient Care: Greater than 35 minutes (>than 50% of time spent in counselling and/or direct pt care on unit) . 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
--- NOTE | 2021-03-23 16:14 | PC.NURSE ---
Medications administered, pt updated on plan of care, no immediate needs identified, will continue to monitor.
[2021-03-23 16:49] LABS: SARS Covid-2 Antigen Negative (Negative)
[2021-03-23 17:05] LABS: NT Pro B Type Natriuretic Pept 610 pg/mL (0-125); Procalcitonin 0.05 ng/mL (0-0.5)
[2021-03-23 17:09] LABS: Influenza A by IFA Negative (Negative); Influenza B by IFA Negative (Negative)
--- NOTE | 2021-03-23 17:26 | PC.NURSE ---
Pt resting quietly between care, lying R-side, appears to be asleep, tolerating BiPap well.
[2021-03-23 17:51] LABS: Iron 47 ug/dL (37-145); Percent Saturation 15.8 % (20-50); Thyroid Stimulating Hormone 1.56 uIU/mL (0.27-4.20); Total Iron Binding Capacity 296 mcg/dl; Unsaturated Iron Binding 249 ug/dL (112-347)
--- NOTE | 2021-03-23 19:25 | PC.NURSE ---
Pt. states that she does not know why she still has the bipap mask on. I have explained to the patient that she needs the mask to help her get oxygen into her lungs to make a proper gas exchange.
[2021-03-23] MEDS: ferrous gluconate 324 mg Tablet PO (19:28)
[2021-03-23 20:47] LABS: Add Urine Microscopic? NO; Charge for UA Resulting for Rev
[2021-03-23] MEDS: budesonide 0.5 mg/2 mL Neb INHALATION (20:47)
[2021-03-23 20:54] LABS: Bilirubin Urine Neg (Negative); Blood Urine Neg (Negative); Glucose Urine UA Norm (Normal); Ketones Urine Negative (Negative); Leukocyte Esterase Urine Negative (Negative); Nitrate Urine Negative (Negative); Protein Urine Neg (Negative); Urine Appearance Clear (CLEAR); Urine Color Yellow (Yellow); Urobilinogen Urine Neg (Negative); pH Urine 6.5 (5-7)
[2021-03-23] MEDS: metoprolol tartrate 25 mg Tablet PO (21:48)
[2021-03-23] MEDS: famotidine 20 mg Tablet PO (21:49)
[2021-03-24] VITALS (13 sets, daily range): BP systolic 91–123; BP diastolic 53–79; PULSE 70–88; RESP 16–20; TEMP 36.6–36.9; O2SAT 88–96
[2021-03-24] MEDS: ipratropium-albuterol 3 mL Neb INHALATION ×3 (02:13→15:03)
[2021-03-24] MEDS: levoFLOXacin 500 mg Tablet PO (05:02)
[2021-03-24 05:58] LABS: Hematocrit 50.1 % (37.0-47.0); Hemoglobin 15.6 g/dL (11.5-15.3); Mean Corpuscular Volume 99.6 fl (81-99); Red Blood Count 5.03 10^6/uL (4.1-5.3); White Blood Count 8.2 10^3/uL (4.0-10.0)
[2021-03-24 05:59] LABS: Basophils % 0.1 %; Lymphocytes # 1.2 10^3/uL (0.8-4.8); Mean Corpuscular HGB Conc 31.1 g/dL (30.0-36.0); Mean Platelet Volume 10.8 fL (7.4-10.4); Monocytes # 0.2 10^3/uL (0.2-0.9); Monocytes % 2.2 %; Neutrophils # 6.72 10^3/uL (1.8-7.7); Neutrophils % 82.3 %; Nucleated Red Blood Cells % 0 %; Platelet Count 204 10^3/cmm (130-400); Red Cell Distribution Width 15.7 % (12.1-15.1)
[2021-03-24 06:26] LABS: Alanine Aminotransferase 6 U/L (0-33); Albumin Level 4.2 g/dL (3.5-5.2); Alkaline Phosphatase 78 IU/L (35-105); Anion Gap 12.3 (5-19); Aspartate Amino Transferase 13 U/L (0-32); Blood Urea Nitrogen 9 mg/dL (6-20); Calcium 9.6 mg/dL (8.5-10.5); Carbon Dioxide 36 mmol/L (22-29); Chloride 98 mmol/L (98-107); Globulin 2.8 g/dL (1.3-4.6); Glomerular Filtration Rate 87.9 mL/min (90-130); Glucose 156 mg/dL (65-115); Magnesium 2.1 mg/dL (1.7-2.3); Osmolality Calculated 296 mOsm/kg (285-295); Phosphorus 3.9 mg/dL (2.5-4.5); Potassium 4.3 mmol/L (3.5-5.1); Sodium 142 mmol/L (136-145); Total Bilirubin 0.3 mg/dL (0.15-1.2)
[2021-03-24 06:40] LABS: Estmated Average Glucose 114; Hemoglobin A1C 5.6 % (4.0-6.0)
[2021-03-24] MEDS: budesonide 0.5 mg/2 mL Neb INHALATION ×2 (08:10→21:04)
[2021-03-24] MEDS: ferrous gluconate 324 mg Tablet PO ×2 (08:36→16:29)
[2021-03-24] MEDS: amlodipine 10 mg Tablet PO (08:36)
[2021-03-24] MEDS: nicotine 7 mg Patch 1 PATCH TRANSDERMA (08:38)
[2021-03-24] MEDS: famotidine 20 mg Tablet PO ×2 (08:38→16:29)
[2021-03-24] MEDS: metoprolol tartrate 25 mg Tablet PO ×2 (08:40→20:51)
--- NOTE | 2021-03-24 13:41 | PC.CHAP ---
Pastoral Care Encounter/Spiritual Assessment Type of Contact [] Declined count team clerk visit [] Patient/Family/Request visit [] Outpatient visit [] Follow-up visit [] Physician referral [] Code/Alert [xx] Routine visit [] Staff referral [] Actively dying [] Patient sleeping [] Family support [] [] Out of room [] Palliative care [] [xx] Receiving care in room [] Pre-surgical visit [] Trauma [] Long length of stay [] ICU visit [] Other: Relational/Emotional Strength [] Patient feels connected with others/family/visitors/staff [] Distress [] Loneliness/isolation [] Abandonment Spirituality of Patient [] Person of Unique [] Attends Restorationist of their Unique [] Believes in Prayer [] Reads Bible or Mosque materials [] There are Spiritual issues to be addressed Manager Of Community Relations Interventions [] Prayer [] Active listening [] Non-anxious presence [] Spiritual/emotional support [] Crisis/trauma care [] Spiritual counseling [] Bereavement support [] Provided bereavement packet [] Provided Bible/devotional materials [] Provided toy/stuffed animal, coloring book to patient or family member [] Provided Communion [] Anointing/[place] [] Salvation [] Completed spiritual assessment [] Other: Impact on Illness or Injury [] Angry [] Fearful [] Anxious [] Often cries [] Exhaustion [] Unable to work [] Unable to attend rastafarian [] Unable to walk/stand [] Unable to read [] Unable to drive [] Unable to eat/drink [] Unable to sleep [] Unable to be with family [] Patient intubated [] Other: Summary Follow up later Time spent with patient
--- NOTE | 2021-03-24 14:49 | P.PN_ITS ---
Subjective Subjective: Interval history: No events overnight. On examination patient on 3 L saturating 92%. Denies any nausea, vomiting, headache. States feeling a lot better. Has remained hemodynamically stable and afebrile. Vitals/I&O/Wt Last Vital Signs Temp 97.8 F 03/24/21 12:00 Pulse 70 03/24/21 12:00 Resp 18 03/24/21 12:00 BP 91/60 03/24/21 12:00 Pulse Ox 92 03/24/21 12:00 03/23/21 03/24/21 03/24/21 22:59 06:59 14:59 Intake Total 120 / 120 900 / 1020 600 / 600 Output Total 260 / 260 220 / 480 Balance -140 / -140 680 / 540 600 / 600 Weight last 48 hrs Weight 57.181 kg Weight 57.153 kg Physical Exam Narrative: EXAM NARRATIVE: General: No acute distress, AO x3, on 3 L nasal cannula HEENT: PERRLA, pupils bilaterally equal and reactive Chest: Bilateral bronchial breath sounds, rhonchi diffuse present all over lung menjivar, better than yesterday, equal good air entry bilaterally CVS: S1-S2 regular, no murmurs, no tachycardia, no gallops, no rubs Abdomen: Soft, nontender, no organomegaly, bowel sounds present Neuro: No focal deficits, no facial deformity, AO x3, power 5/5 in all limbs Data : 03/24/21 05:35 03/24/21 05:35 Micro: Microbiology 03/23/21 13:53 Blood Culture - Preliminary Blood NEGATIVE TO DATE 03/24/21 Unknown Legionella Urinary Antigen - Final Urine,Voided 03/23/21 12:53 Blood Culture - Preliminary Blood NEGATIVE TO DATE 03/23/21 19:35 Bacterial Antigens - Final Urine Kidney 03/23/21 13:00 Gram Stain - Final Sputum - Expectorated Sputum A&P Assessment and plan (1) Acute on chronic respiratory failure with hypoxia and hypercapnia: Status: Acute (2) COPD (chronic obstructive pulmonary disease): Status: Acute Qualifiers: COPD type: unspecified COPD Qualified Code(s): J44.9 - Chronic obstructive pulmonary disease, unspecified (3) Hypertension: Status: Acute Additional A&P Information Acute on chronic hypoxic and hypercapnic respiratory failure: ABG appreciated. Most likely secondary to COPD exacerbation. Bacterial infection less likely currently. D-dimer negative. CTA done in the ER appreciated. DuoNebs every 6 hour, budesonide twice daily. Wean Solu-Medrol 40 mg IV every 12 hourly. Urine Legionella, bacterial antigen negative. Sputum culture results appreciated. Flu swab negative, COVID-19 PCR still pending. Continue with isolation precautions. Continue Levaquin 5 mg to finish 5-day course. Oxygen supplementation keeping saturation over 88%. Hypertension: Goal blood pressure less than 140/90 mmHg. Patient not on any antihypertensives at home. Blood pressure better controlled. Continue amlodipine 5 mg daily, metoprolol 25 mg twice daily. Echocardiogram results pending. Full code. Nicotine patch. Lovenox for DVT prophylaxis. Famotidine for PUD prophylaxis. Attestations Medical Necessity Statement*: Requires further hospitalization for management of acute on chronic hypoxia secondary to COPD exacerbation Time Spent in Patient Care: Greater than 35 minutes (>than 50% of time spent in counselling and/or direct pt care on unit) . Coding Level of Care Code Acute Gasket Supervisor for Vishal Badillo Diagnoses Acute on chronic respiratory failure with hypoxia and hypercapnia J96.21; J96.22 COPD (chronic obstructive pulmonary disease) J44.9 COPD type: unspecified COPD Hypertension I10
[2021-03-24 14:58] LABS: Coronavirus Test Green County Not Detected
--- NOTE | 2021-03-24 15:49 | USCV_ITS ---
Estelle Pascual Age: 50 Gender: F : 1970 Exam Date: 03/24/2021 06:20 Ordering Phys: Haider Velasco MD Technologist: MIRACLE Exam Location: [facility] [place] [facility] [place] Indication: HTN COPD BP: 122 / 79 HR: 79 Rhythm: Sinus Technical Quality: Adequate MEASUREMENTS (Male / Female) Normal Values 2D ECHO LV Diastolic Diameter PLAX 3.8 cm 4.2 - 5.9 / 3.9 - 5.3 cm LV Systolic Diameter PLAX 2.4 cm IVS Diastolic Thickness 1.1 cm 0.6 - 1.0 / 0.6 - 0.9 cm IVS Systolic Thickness 1.4 cm LVPW Diastolic Thickness 1.1 cm 0.6 - 1.0 / 0.6 - 0.9 cm LVPW Systolic Thickness 1.6 cm RV Chamber Size 2.6 cm LVOT Diameter 2.0 cm LV Ejection Fraction 2D Teich 67.1 % LV Ejection Fraction MOD 2C 61.6 % LV Ejection Fraction 2C AL 63.0 % LA Diameter 2.7 cm LA Width 3.0 cm LA Height 3.3 cm RA Width 2.2 cm RA Height 3.5 cm Aorta at Sinotubular Diameter 2.3 cm DOPPLER AV Peak Velocity 142.0 cm/s LVOT Peak Velocity 90.0 cm/s AV Area Cont Eq vti 2.3 cm squared AV Area Cont Eq pk 2.0 cm squared MV Area PHT 5.0 cm squared Mitral E to A Ratio 1.0 MV E' Velocity 42.5 cm/s Mitral E to MV E' Ratio 8.1 Mitral E to LV E' Lateral Ratio 8.7 Mitral E to LV E' Septal Ratio 7.5 TR Peak Velocity 318.3 cm/s TR Peak Gradient 40.5 mmHg TV Peak E Velocity 58.0 cm/s Right Atrial Pressure 3.0 mmHg Pulmonary Artery Systolic Pressu 43.5 mmHg PV Peak Velocity 87.0 cm/s RV Acceleration Time 0.1 s RV Ejection Time 0.3 s RV AcT/ET 0.3 FINDINGS Left Ventricle Normal left ventricular size and systolic function, EF 60 %. No regional wall motion abnormalities. Right Ventricle Prominent trabeculations are noted of the right ventricular apex Right Atrium The right atrium is normal in size. Left Atrium The left atrium is normal in size. Mitral Valve No gross abnormalities noted Aortic Valve No gross abnormalities noted Tricuspid Valve No gross abnormalities noted Pulmonic Valve No gross abnormalities noted Pericardium Normal pericardium without effusion. Aorta Normal ascending aorta dimension. CONCLUSIONS Normal left ventricular size and systolic function, EF 60 %. No regional wall motion abnormalities. Prominent trabeculations are noted of the right ventricular apex. There is no pericardial effusion. There are no intracardiac masses. No previous study is available for comparison. Dr Taya Villalta MD FACC (Electronically Signed) Final Date: 24 March 2021 15:26 S
--- NOTE | 2021-03-24 16:25 | PC.SOCIAL ---
pt not triggered, possible DC saturday or saturday
[2021-03-24] MEDS: acetaminophen 325 mg Tablet 650 MG PO (16:29)
[2021-03-24] MEDS: enoxaparin 40 mg/0.4 mL Syringe SUBCUT (16:30)
[2021-03-25] VITALS (10 sets, daily range): BP systolic 104–107; BP diastolic 60–74; PULSE 68–81; RESP 16–22; TEMP 36.3–36.7; O2SAT 80–100
[2021-03-25] MEDS: ipratropium-albuterol 3 mL Neb INHALATION ×2 (02:41→08:58)
[2021-03-25 05:55] LABS: Alanine Aminotransferase 8 U/L (0-33); Albumin Level 3.9 g/dL (3.5-5.2); Alkaline Phosphatase 62 IU/L (35-105); Blood Urea Nitrogen 17 mg/dL (6-20); Calcium 8.6 mg/dL (8.5-10.5); Carbon Dioxide 29 mmol/L (22-29); Chloride 98 mmol/L (98-107); Creatinine Clr Calc Pharmacy 68.7386; Globulin 2.6 g/dL (1.3-4.6); Glomerular Filtration Rate 75.3 mL/min (90-130); Glucose 150 mg/dL (65-115); Osmolality Calculated 292 mOsm/kg (285-295); Sodium 139 mmol/L (136-145); Total Bilirubin 0.2 mg/dL (0.15-1.2); Total Protein 6.5 g/dL (6.6-8.7)
[2021-03-25 05:56] LABS: Anion Gap 16.4 (5-19); Aspartate Amino Transferase 12 U/L (0-32); Potassium 4.4 mmol/L (3.5-5.1)
[2021-03-25] MEDS: levoFLOXacin 500 mg Tablet PO (06:22)
[2021-03-25] MEDS: acetaminophen 325 mg Tablet 650 MG PO (06:32)
[2021-03-25] MEDS: nicotine 7 mg Patch 1 PATCH TRANSDERMA (07:59)
[2021-03-25] MEDS: ferrous gluconate 324 mg Tablet PO (07:59)
[2021-03-25] MEDS: famotidine 20 mg Tablet PO (07:59)
[2021-03-25] MEDS: amlodipine 5 mg Tablet PO (07:59)
[2021-03-25] MEDS: metoprolol tartrate 25 mg Tablet PO (07:59)
[2021-03-25] MEDS: budesonide 0.5 mg/2 mL Neb INHALATION (08:57)
--- NOTE | 2021-03-25 12:15 | P.DS_ITS ---
Discharge Providers Date of Admission: 03/23/21 21:11 Date of Discharge: March 25, 2021 Attending Provider at Admission: Haider Velasco MD Attending Provider at Discharge: Haider Velasco MD Primary Care Provider: Reena López MD Diagnoses at Discharge Discharge Diagnosis (1) Acute on chronic respiratory failure with hypoxia and hypercapnia: Status: Acute (2) COPD (chronic obstructive pulmonary disease): Status: Acute Qualifiers: COPD type: unspecified COPD Qualified Code(s): J44.9 - Chronic obstructive pulmonary disease, unspecified (3) Hypertension: Status: Acute Reason for Visit Reason for Visit: COPD:O2 IN 70'S,DIFF BREATHING,STATES PNEUMONIA? Hospital Course Hospital Course Estelle Pascual is a 50 year old female with past medical history of COPD on 2 L oxygen nightly, hypertension presented to the ER today with worsening difficulty in breathing over last 2 weeks. Shortness of breath gets worse on minimal exertion currently. Not associated with laying down in bed. Denies any chest pain, fever, expectoration, diarrhea. History concerning for cough. Patient is a chronic smoker and smokes 1 pack/day. In the ER patient was found to be hypercapnic so was placed on BiPAP. On examination patient is awake and alert oriented. Not vaccinated for COVID-19 or flu. Patient was admitted to the hospital for further management of hypoxic hypercapnic acute on chronic respiratory failure secondary COPD exacerbation. She was started on nebulization treatment along with IV steroids. Steroids were weaned down gradually. Pneumonia was ruled out. Patient has been off antibiotics during hospitalization and has been hemodynamically stable and afebrile. Patient has been improving slowly and slowly and has been doing better. Her hospital stay was otherwise unremarkable. She is been discharged in hemodynamically stable condition with steroid taper. It was discussed in detail regarding cessation of smoking as soon as possible. Patient states she is trying to work on it but is not ready yet. Physical Exam Narrative: EXAM NARRATIVE: General: No acute distress, AO x3, on 3 L nasal cannula HEENT: PERRLA, pupils bilaterally equal and reactive Chest: Bilateral bronchial breath sounds, rhonchi diffuse present all over lung menjivar, better than yesterday, equal good air entry bilaterally CVS: S1-S2 regular, no murmurs, no tachycardia, no gallops, no rubs Abdomen: Soft, nontender, no organomegaly, bowel sounds present Neuro: No focal deficits, no facial deformity, AO x3, power 5/5 in all limbs Discharge Data Data Completed and Pending: Completed Studies During Hospitalization Category Date Time Status CT angio chest PE protcl [id number] Stat Cat Scan 03/23/21 12:36 Completed XR chest 1V wesly ble [id number] Stat Exams 03/23/21 12:36 Completed CV. echo complete * [id number] Routine Ultrasound 03/24/21 15:49 Completed Pending at discharge Category Date Time Status Blood Culture Sta t Lab 03/23/21 13:53 Results Sputum Culture an d Gram Stain Stat Lab 03/23/21 13:00 Results Labs from last 24 hours 03/25/21 03/23/21 04:53 16:00 Sodium 139 Potassium 4.4 Chloride 98 Carbon Dioxide 29 Anion Gap 16.4 BUN 17 Creatinine 0.8 GFR Calculation 75.3 L Glucose 150 H Calculated Osmolal ity 292 Calcium 8.6 Total Bilirubin 0.2 AST 12 ALT 8 Alkaline Phosphata se 62 Total Protein 6.5 L Albumin 3.9 Globulin 2.6 Nasal/Oral COVID-1 9 PCR Not detected Addt'l Data from Hospital Stay: Laboratory Results WBC 8.2 10^3/uL (4.0- 10.0) 03/24/21 05:35 RBC 5.03 10^6/uL (4.1 -5.3) 03/24/21 05:35 Hgb 15.6 g/dL (11.5-1 5.3) H 03/24/21 05:35 Hct 50.1 % (37.0-47.0 ) H 03/24/21 05:35 MCV 99.6 fl (81-99) H 03/24/21 05:35 MCH 31.0 pg (28.0-34. 0) 03/24/21 05:35 MCHC 31.1 g/dL (30.0-3 6.0) D 03/24/21 05:35 RDW 15.7 % (12.1-15.1 ) H 03/24/21 05:35 Plt Count 204 10^3/cmm (130 -400) 03/24/21 05:35 MPV 10.8 fL (7.4-10.4 ) H 03/24/21 05:35 Neut % (Auto) 82.3 % 03/24/21 05:35 Lymph % (Auto) 15.0 % 03/24/21 05:35 [place] % (Auto) 2.2 % 03/24/21 05:35 Eos % (Auto) 0.0 % 03/24/21 05:35 Baso % (Auto) 0.1 % 03/24/21 05:35 Neut # (Auto) 6.72 10^3/uL (1.8 -7.7) 03/24/21 05:35 Lymph # (Auto) 1.2 10^3/uL (0.8- 4.8) 03/24/21 05:35 [place] # (Auto) 0.2 10^3/uL (0.2- 0.9) 03/24/21 05:35 Eos # (Auto) 0.0 10^3/uL (0.0- 0.8) 03/24/21 05:35 Baso # (Auto) 0.0 10^3/uL (0.0- 0.1) 03/24/21 05:35 Nucleated RBC % (a uto) 0 % 03/24/21 05:35 Nucleated RBCs # 0.0 /100WBC 03/24/21 05:35 D-Dimer 0.41 ug/mIFEU (0- 0.59) 03/23/21 12:53 Specimen Type Arterial 03/23/21 13:30 Sample Site Radial, left 03/23/21 13:30 ABG pH 7.38 (7.35-7.45) 03/23/21 13:30 ABG pCO2 61.5 mmHg (35-45) H* 03/23/21 13:30 ABG pO2 57.5 mmHg (80.0-1 00.0) L 03/23/21 13:30 ABG HCO3 36.4 mmol/L (22-2 6) H 03/23/21 13:30 ABG O2 Saturation 91.5 03/23/21 13:30 ABG Base Excess 8.6 mmol/L (-2.0- 2.0) H 03/23/21 13:30 Braxton Test Pos 03/23/21 13:30 A-a O2 Gradient 24.3 mmHg (5-10) H 03/23/21 13:30 Hematocrit 46.9 % (37-47) 03/23/21 13:30 Hgb O2 Saturation 82.7 % (95-100) L 03/23/21 13:30 Carboxyhemoglobin 9.4 %THgb (0.4-20 .1) 03/23/21 13:30 Methemoglobin 0.2 % (0.4-1.5) L 03/23/21 13:30 Total Hemoglobin 15.3 g/dL (12-16) 03/23/21 13:30 Sodium 142.0 mmol/L (131 -143) 03/23/21 13:30 Potassium 3.1 mmol/L (3.5-5 .0) L 03/23/21 13:30 Glucose 117.0 mg/dL (70-1 15) H 03/23/21 13:30 Ionized Calcium 1.2 mmol/L (1.1-1 .4) 03/23/21 13:30 O2 Delivery Device Nc 03/23/21 13:30 O2 Liters/Min 6.0 % 03/23/21 13:30 FiO2 44.0 % 03/23/21 13:30 Payroll And Benefits Coordinator ID Gd 03/23/21 13:30 Sodium 139 mmol/L (136-1 45) 03/25/21 04:53 Potassium 4.4 mmol/L (3.5-5 .1) 03/25/21 04:53 Chloride 98 mmol/L (98-107 ) 03/25/21 04:53 Carbon Dioxide 29 mmol/L (22-29) 03/25/21 04:53 Anion Gap 16.4 (5-19) 03/25/21 04:53 BUN 17 mg/dL (6-20) 03/25/21 04:53 Creatinine 0.8 mg/dL (0.5-0. 9) 03/25/21 04:53 GFR Calculation 75.3 mL/min (90-1 30) L 03/25/21 04:53 Glucose 150 mg/dL (65-115 ) H 03/25/21 04:53 Estimat Average Gl ucose 114 03/24/21 05:35 Hemoglobin A1c 5.6 % (4.0-6.0) 03/24/21 05:35 Calculated Osmolal ity 292 mOsm/kg (285- 295) 03/25/21 04:53 Lactic Acid 0.8 mmol/L (0.5-2 .2) 03/23/21 12:53 Calcium 8.6 mg/dL (8.5-10 .5) 03/25/21 04:53 Phosphorus 3.9 mg/dL (2.5-4. 5) 03/24/21 05:35 Magnesium 2.1 mg/dL (1.7-2. 3) 03/24/21 05:35 Iron 47 ug/dL (37-145) 03/23/21 12:53 TIBC 296 mcg/dl 03/23/21 12:53 % Saturation 15.8 % (20-50) L 03/23/21 12:53 Unsat Iron Binding 249 ug/dL (112-34 7) 03/23/21 12:53 Total Bilirubin 0.2 mg/dL (0.15-1 .2) 03/25/21 04:53 AST 12 U/L (0-32) 03/25/21 04:53 ALT 8 U/L (0-33) 03/25/21 04:53 Alkaline Phosphata se 62 IU/L (35-105) 03/25/21 04:53 C-Reactive Protein 5.0 mg/L (0.0-4.9 ) H 03/23/21 12:53 NT-Pro-B Natriuret Pep 610 pg/mL (0-125) H 03/23/21 12:53 Total Protein 6.5 g/dL (6.6-8.7 ) L 03/25/21 04:53 Albumin 3.9 g/dL (3.5-5.2 ) 03/25/21 04:53 Globulin 2.6 g/dL (1.3-4.6 ) 03/25/21 04:53 Procalcitonin 0.05 ng/mL (0-0.5 ) 03/23/21 12:53 TSH 1.56 uIU/mL (0.27 -4.20) 03/23/21 12:53 TSH Cancelled 03/23/21 12:53 Urine Color Yellow (Yellow) 03/23/21 19:35 Urine Appearance Clear (CLEAR) 03/23/21 19:35 Urine pH 6.5 (5-7) 03/23/21 19:35 Ur Specific Gravit y 1.010 (1.005-1.0 30) 03/23/21 19:35 Urine Protein Neg (Negative) 03/23/21 19:35 Urine Glucose (UA) Norm (Normal) 03/23/21 19:35 Urine Ketones Negative (Negati ve) 03/23/21 19:35 Urine Blood Neg (Negative) 03/23/21 19:35 Urine Nitrate Negative (Negati ve) 03/23/21 19:35 Urine Bilirubin Neg (Negative) 03/23/21 19:35 Urine Urobilinogen Neg mg/dL (Negati ve) 03/23/21 19:35 Ur Leukocyte [place] Negative (Negati ve) 03/23/21 19:35 Nasal/Oral COVID-1 9 PCR Not detected 03/23/21 16:00 Influenza Type A A g Negative (Negati ve) 03/23/21 15:55 Influenza Type B A g Negative (Negati ve) 03/23/21 15:55 SARS-CoV-2 Ag (Rap id) Negative (Negati ve) 03/23/21 15:55 Impressions Chest CTA 03/23/21 12:36 IMPRESSION: 1. No sign of acute PE. 2. No mass, lymphadenopathy or other significant finding in the chest. Chest X-Ray 03/23/21 12:36 IMPRESSION: 1. Pulmonary hyperinflation which might indicate obstructive lung disease. No acute process. Vitals: Last Vital Signs Temp 97.8 F 03/25/21 11:45 Pulse 68 03/25/21 11:45 Resp 18 03/25/21 11:45 BP 104/69 03/25/21 11:45 Pulse Ox 92 03/25/21 11:45 Discharge Plan Discharge Patient Disposition: Home Condition: Stable Prescriptions: New levofloxacin 500 mg Tablet 500 mg PO DAILY@0600 Qty: 2 RF: 0 metoprolol tartrate 25 mg Tablet 25 mg PO BID@0900,2100 Qty: 60 RF: 0 ferrous gluconate 324 mg (37.5 mg iron) Tablet 324 mg PO BIDWM Qty: 60 RF: 0 ipratropium-albuterol 0.5 mg-3 mg(2.5 mg base)/3 mL solution for nebulization 3 ml inhalation Q6H PRN (Reason: shortness of breath or wheezing) Qty: 90 RF: 0 Combivent Respimat 20-100 mcg/actuation mist 1 puff inhalation Q6H Qty: 4 RF: 0 prednisone 10 mg tablet See Taper mg PO DAILY Qty: 42 RF: 0 Continued albuterol sulfate 2.5 mg /3 mL (0.083 %) solution for nebulization 2.5 mg INHALATION QID PRN (Reason: shortness of breath or wheezing) Qty: 180 RF: 2 albuterol sulfate [Ventolin HFA] 90 mcg/actuation HFA aerosol inhaler 2 puff INHALATION QID PRN (Reason: shortness of breath or wheezing) Qty: 18 RF: 5 (DME) oxygen and concentrator See Rx Instructions .Route .MEDSUPPLY Qty: 1 RF: 0 Discharge Orders: Discharge Order (Routine); Ordered 03/25/21 Ordered By: Haider Velasco Referrals: Reena López MD [Primary Care Provider] - 1 week Discharge Diet: Cardiac Discharge Activity: Resume usual activity Patient Instructions: Opioid Safety Discharge Attestations Time Spent in Discharge Care*: greater than 30 min Specific Discharge Activities: educating patient, educating and/or supporting family/caregiver, discussing with manager of case management/social workers/dc planners, documenting/other paperwork and evaluating patient/reviewing data Status at Discharge: Cognitive status at discharge: cognitively intact , Behavioral status at discharge: cooperative , Functional status at discharge: independent ambulation Overall status at discharge: patient is back to baseline Quality Metrics Clinical Quality Measures During this hospital stay, did patient experience: None Coding Level of Care Code Acute [facility] FW DC note Diagnoses Acute on chronic respiratory failure with hypoxia and hypercapnia J96.21; J96.22 COPD (chronic obstructive pulmonary disease) J44.9 COPD type: unspecified COPD Hypertension I10
--- NOTE | 2021-03-25 12:44 | PC.NURSE ---
Called in prescriptions to [facility] pharmacy due to [facility] not being open on Saturday.
== END 2021-03-25 16:49 | disposition home or self-care (01) | DRG 189 ==
LOC: ER 16:16 → MEDSURG 03-24 06:23
PROVIDERS: Admitting Provider Student in an Organized Health Care Education/Training Program; Emergency Provider Family Medicine; PCP Family Medicine; Visit Provider Student in an Organized Health Care Education/Training Program
DX: J96.22 Acute and chronic respiratory failure with hypercapnia (principal); J44.1 Chronic obstructive pulmonary disease with (acute) exacerbation; J96.21 Acute and chronic respiratory failure with hypoxia; Z99.81 Dependence on supplemental oxygen; F41.9 Anxiety disorder, unspecified; K21.9 Gastro-esophageal reflux disease without esophagitis; I10 Essential (primary) hypertension; F17.210 Nicotine dependence, cigarettes, uncomplicated; Z79.51 Long term (current) use of inhaled steroids
CPT/HCPCS: 36415; 36600; 71045; 71275; 80051; 80053; 81003; 82330; 82805; 83036; 83540; 83550; 83605; 83735; 83880; 84100; 84145; 84443; 85025; 85378; 86140; 86403; 87040; 87070; 87205; 87426; 87449; 87635; 87804; 93005; 93306; 94640; 94660; 94664; 96372; 96374; 99291; J1100; J1650; J2920; J3105; J7626; Q9967

== ENCOUNTER → 2021-12-12 15:23 | Outpatient (BNVA) | payer OTHER, SELFPAY | PROVIDERS: PCP Family Medicine; Visit Provider Nurse Practitioner Family | DX: I10 Essential (primary) hypertension (principal); J44.9 Chronic obstructive pulmonary disease, unspecified | CPT/HCPCS: 80053; 80061; 84443; 85025 ==

== ENCOUNTER 2022-03-31 23:19 | Inpatient (IN) | payer SELFPAY ==
--- NOTE | 2022-03-31 23:24 | ECG_ITS ---
[facility] Test Date: 2022-03-31 Pat Name: Estelle Pascual Department: Room: Gender: Female Delivery Director: : 1970 Requested By: Lo Son Order Number: [id number] Tawanda MD: Taya Villalta M.D. Measurements Intervals Christopher Rate: 103 P: 62 NH: 132 QRS: 67 QRSD: 81 T: 66 QT: 334 QTc: 438 Interpretive Statements SINUS TACHYCARDIA ABNORMAL RHYTHM ECG Compared to ECG 03/23/2021 13:24:06 Sinus rhythm no longer present Electronically Signed On 04-02-2022 13:44:06 MODELING ANALYST by Taya Villalta M.D. [email or web address]/[id number]
--- NOTE | 2022-03-31 23:24 | XRR_ITS ---
PROCEDURE INFORMATION: Exam: XR Chest Exam date and time: 04/01/2022 12:47 AM Age: 51 years old Clinical indication: Dyspnea; Additional info: SOB TECHNIQUE: Imaging protocol: Radiologic exam of the chest. Views: 1 view. COMPARISON: CR XR chest 1V portable [id number] 03/23/2021 12:44 PM FINDINGS: Lungs: Unremarkable. No consolidation. Pleural spaces: Unremarkable. No pleural effusion. No pneumothorax. Heart/Mediastinum: Unremarkable. No cardiomegaly. Bones/joints: Unremarkable. XR/XR chest 1V portable [id number] IMPRESSION: No acute findings.
[2022-03-31 23:44] VITALS: BP 128/90; PULSE 109; RESP 28; O2SAT 100; BMI 23.0
[2022-03-31 23:47] LABS: Basophils % 0.3 %; Hemoglobin 14.6 g/dL (11.5-15.3); Lymphocytes # 2.6 10^3/uL (0.8-4.8); Mean Corpuscular HGB Conc 29.8 g/dL (30.0-36.0); Mean Corpuscular Hemoglobin 30.4 pg (28.0-34.0); Mean Corpuscular Volume 101.9 fl (81-99); Mean Platelet Volume 11.1 fL (7.4-10.4); Monocytes % 9.2 %; Neutrophils # 6.66 10^3/uL (1.8-7.7); Neutrophils % 64.8 %; Nucleated Red Blood Cells % 0 %; Platelet Count 240 10^3/cmm (130-400); Red Blood Count 4.81 10^6/uL (4.1-5.3); Red Cell Distribution Width 13.3 % (12.1-15.1); White Blood Count 10.3 10^3/uL (4.0-10.0)
--- NOTE | 2022-03-31 23:49 | W.ED.SOB ---
HPI - SOB/Dyspnea General: Chief Complaint: Shortness of Breath/Dyspnea Stated Complaint: sob, lethargic Time Seen by Provider: 03/31/22 23:29 Source: patient Mode of arrival: ambulatory Limitations: no limitations History of Present Illness: HPI Narrative: 51-year-old female has a history of COPD and is currently a smoker. She states she wears 3 L oxygen at home. States over the last 2 days she has had increasing shortness of breath. Denies any worsening improving factors patient had ran out oxygen on the way here was hypoxic when she arrived she is now requiring 6 L her baseline is 3. She denies any fever she has had a slight cough. She denies any chest pain. Associated symptoms: Deny abdominal pain, chest pain, fever(s), nausea or vomiting Review of Systems Const: Denies: fever(s), chills, body aches or change in appetite Eyes: Denies: blurry vision or eye discomfort ENMT: Denies: throat pain or dental pain Card: Denies: chest pain Resp: Reports: dyspnea and non-productive cough GI: Denies: abdominal pain, nausea, vomiting or diarrhea : Denies: dysuria Musc: Denies: neck pain or back pain Skin/Breast: Denies: rash Neuro: Denies: headache(s) Psych: Denies: depression Tanner/Lymph: Denies: easy bruising All/Imm: Denies: urticaria PFSH ED PFSH: Medical History Anxiety COPD (chronic obstructive pulmonary disease) Fracture of fifth metatarsal bone of right foot Gastroesophageal reflux disease Hypertension Right ankle pain Right foot pain Tenosynovitis of foot Surgical History History of tonsillectomy and adenoidectomy Hx of section Hx of cholecystectomy Hx of colonoscopy (~2012) Hx of hernia repair Hx of tubal ligation Family History Father Cancer lung Heart disease Mother Heart disease Social History Smoking and tobacco status: current every day smoker cigarettes Packs smoked per day: 1 Years cigarettes smoked: 45 Second hand smoke exposure: Yes Alcohol intake: former Former alcohol use details: sober x 20 yrs Caregiver/support person: Yes Lives independently: Yes Household members: spouse and children Marital status: service: No Current occupational status: unemployed History of recent travel: No Current gender identity: Female Special lauryn needs: No Agree to transfusion: No Financial difficulty paying for basics: Very Hard Physical Exam Const: COMMON NORMALS: patient oriented x3 GENERAL APPEARANCE: in distress HENMT: COMMON NORMALS: normocephalic and atraumatic HEAD & SCALP: normocephalic and atraumatic Eye: COMMON NORMALS: Equal, round and reactive pupils present and EOMs intact bilaterally PUPIL: Yes Equal, round and reactive pupils present Neck/C-Spine: COMMON NORMALS: full ROM and supple Chest: COMMONS NORMALS: normal inspection of the chest and normal palpation of entire chest wall Resp: EFFORT & INSPECTION: Yes tachypneic and Yes respiratory distress AUSCULTATION: wheezes Cardio: COMMON NORMALS: regular rate, regular rhythm and No murmurs present (Cardio) RATE: regular rate RHYTHM: regular rhythm GI: COMMON NORMALS: Normal to inspection, nondistended, normoactive bowel sounds present, Soft to palpation, non-tender and no masses PALPATION: Yes Soft to palpation Extremity: COMMON NORMALS: normal to inspection and full ROM Neuro: COMMON NORMALS: patient oriented x3, moves all extremities and no focal motor deficits Psych: COMMON NORMALS: mental status grossly normal, Normal thought process present and cooperative THOUGHT PROCESS: Normal thought process present Skin: COMMON NORMALS: no rashes or lesions noted and no wounds GENERAL SKIN EXAM: no rashes or lesions noted Course Vital Signs: Vital signs: Vital Signs Pulse Rate 106 H 04/01/22 00:26 Respiratory Rate 14 04/01/22 00:22 Blood Pressure 128/90 03/31/22 23:44 Pulse Oximetry 97 04/01/22 00:23 Oxygen Delivery Me thod 04/01/22 00:22 Fraction of Inspir ed Oxygen 40 04/01/22 00:23 MDM - SOB/Dyspnea Medical Decision Making Patient presents here with shortness of breath COPD exacerbation she was hypoxic also hypercapnic patient placed on BiPAP and is doing well I spoke to hospitalist will admit at this time. Lab Data 03/31/22 23:40 03/31/22 23:40 Labs/Radiology: Radiology Impressions Chest X-Ray 03/31/22 23:24 IMPRESSION: No acute findings. Laboratory Results WBC 10.3 10^3/uL (4.0-10.0) H 03/31/22 23:40 RBC 4.81 10^6/uL (4.1-5.3) 03/31/22 23:40 Hgb 14.6 g/dL (11.5-15.3) 03/31/22 23:40 Hct 49.0 % (37.0-47.0) H 03/31/22 23:40 MCV 101.9 fl (81-99) H 03/31/22 23:40 MCH 30.4 pg (28.0-34.0) 03/31/22 23:40 MCHC 29.8 g/dL (30.0-36.0) L 03/31/22 23:40 RDW 13.3 % (12.1-15.1) 03/31/22 23:40 Plt Count 240 10^3/cmm (130-400) 03/31/22 23:40 MPV 11.1 fL (7.4-10.4) H 03/31/22 23:40 Neut % (Auto) 64.8 % 03/31/22 23:40 Lymph % (Auto) 25.0 % 03/31/22 23:40 [place] % (Auto) 9.2 % 03/31/22 23:40 Eos % (Auto) 0.0 % 03/31/22 23:40 Baso % (Auto) 0.3 % 03/31/22 23:40 Neut # (Auto) 6.66 10^3/uL (1.8-7.7) 03/31/22 23:40 Lymph # (Auto) 2.6 10^3/uL (0.8-4.8) 03/31/22 23:40 [place] # (Auto) 1.0 10^3/uL (0.2-0.9) H 03/31/22 23:40 Eos # (Auto) 0.0 10^3/uL (0.0-0.8) 03/31/22 23:40 Baso # (Auto) 0.0 10^3/uL (0.0-0.1) 03/31/22 23:40 Nucleated RBC % (auto) 0 % 03/31/22 23:40 Nucleated RBCs # 0.0 /100WBC 03/31/22 23:40 Specimen Type Arterial 03/31/22 00:00 Sample Site Radial, left 03/31/22 00:00 ABG pH 7.39 (7.35-7.45) 03/31/22 00:00 ABG pCO2 83.1 mmHg (35-45) H* 03/31/22 00:00 ABG pO2 68.1 mmHg (80.0-100.0) L 03/31/22 00:00 ABG HCO3 49.9 mmol/L (22-26) H 03/31/22 00:00 ABG Base Excess 20.3 mmol/L (-2.0-2.0) H 03/31/22 00:00 Braxton Test Pos 03/31/22 00:00 Hematocrit 39.4 % (37-47) 03/31/22 00:00 O2 Delivery Device Nc 03/31/22 00:00 O2 Liters/Min 5.0 % 03/31/22 00:00 Public Health Technician ID Christofer 03/31/22 00:00 Sodium 138 mmol/L (136-145) 03/31/22 23:40 Potassium 4.6 mmol/L (3.5-5.1) 03/31/22 23:40 Chloride 85 mmol/L (98-107) L 03/31/22 23:40 Carbon Dioxide 45 mmol/L (22-29) H* 03/31/22 23:40 Anion Gap 12.6 (5-19) 03/31/22 23:40 BUN 18 mg/dL (6-20) 03/31/22 23:40 Creatinine 0.8 mg/dL (0.5-0.9) 03/31/22 23:40 GFR Calculation 75.0 mL/min (90-130) L 03/31/22 23:40 Glucose 123 mg/dL (65-115) H 03/31/22 23:40 Calculated Osmolality 289 mOsm/kg (285-295) 03/31/22 23:40 Calcium 9.9 mg/dL (8.5-10.5) 03/31/22 23:40 Total Bilirubin 0.2 mg/dL (0.15-1.2) 03/31/22 23:40 AST 27 U/L (0-32) 03/31/22 23:40 ALT 23 U/L (0-33) 03/31/22 23:40 Alkaline Phosphatase 83 U/L (35-105) 03/31/22 23:40 Troponin T Baseline 23 ng/L (0-10) H 03/31/22 23:40 NT-Pro-B Natriuret Pep 5287 pg/mL (0-125) H 03/31/22 23:40 Total Protein 7.8 g/dL (6.6-8.7) 03/31/22 23:40 Albumin 4.6 g/dL (3.5-5.2) 03/31/22 23:40 Globulin 3.2 g/dL (1.3-4.6) 03/31/22 23:40 Influenza Type A Ag negative (Negative) 03/31/22 23:55 Influenza Type B Ag negative (Negative) 03/31/22 23:55 EKG Data EKG 1: I personally reviewed and interpreted this EKG as follows: EKG Interpretation Date: 03/31/22 EKG interpretation time: 23:46 Interpretation: sinus tach hf [address] or t wave abnormalities qrs 81 qtc 394 Critical Care Time Critical Care Time: Critical Care Time: Yes Total Critical Care Time: 35 Attestation: The high probability of a clinically significant, sudden or life threatening deterioration of the patient's resp system(s) required my full and direct attention, intervention and personal management. The critical care time is as shown. This time is in addition to time spent performing any reported procedures but includes the following: [x] Data and vital sign review and interpretation [x] Patient assessment, examination and intervention [x] Documentation [x] Medication orders and management Discharge Plan Discharge Patient Disposition: Admitted As Inpatient Clinical Impression: Acute exacerbation of chronic obstructive airways disease, Acute respiratory failure with hypoxemia Condition: Stable Prescriptions: No Action (DME) oxygen and concentrator See Rx Instructions .Route .MEDSUPPLY Qty: 1 0RF Rx Instructions: use 2L O2 via NC with exercise albuterol sulfate [Ventolin HFA] 90 mcg/actuation HFA aerosol inhaler See Rx Instructions .ROUTE .COMPLEX Qty: 18 5RF Dose Instruction: INHALE 2 PUFFS INTO LUNGS FOUR TIMES DAILY NEEDED FOR SHORTNESS OF BREATH OR wheezing Rx Instructions: INHALE 2 PUFFS INTO LUNGS FOUR TIMES DAILY NEEDED FOR SHORTNESS OF BREATH OR wheezing metoprolol tartrate 25 mg tablet See Rx Instructions .ROUTE .COMPLEX Qty: 60 4RF Dose Instruction: TAKE ONE TABLET BY MOUTH TWICE DAILY AT 9AM AND 9PM Rx Instructions: TAKE ONE TABLET BY MOUTH TWICE DAILY AT 9AM AND 9PM budesonide-formoterol [Symbicort] 160-4.5 mcg/actuation HFA aerosol inhaler 2 puff inhalation BID Qty: 10.2 3RF albuterol sulfate 2.5 mg /3 mL (0.083 %) solution for nebulization 2.5 mg INHALATION QID PRN (Reason: shortness of breath or wheezing) Qty: 180 2RF ferrous gluconate 324 mg (37.5 mg iron) Tablet 324 mg PO BIDWM Qty: 60 0RF ipratropium-albuterol 0.5 mg-3 mg(2.5 mg base)/3 mL solution for nebulization 3 ml inhalation Q6H PRN (Reason: shortness of breath or wheezing) Qty: 90 0RF Referrals: Reena López MD [Primary Care Provider] - Coding Level of Care Code ED Junior Copywriter for Chg Fwd Exam Comprehensive
[2022-04-01] VITALS (18 sets, daily range): BP systolic 107–131; BP diastolic 73–93; PULSE 74–106; RESP 14–24; TEMP 36.4–37.5; O2SAT 92–98
[2022-04-01 00:06] LABS: Troponin(5th) Baseline 23 ng/L (0-10)
[2022-04-01 00:07] LABS: ABG PH Result 7.39 (7.35-7.45); Arterial Blood Gas Hematocrit 39.4 % (37-47); Base Excess ABG 20.3 mmol/L (-2.0-2.0); Blood Gas Allen Test Pos; Blood Gas Operator Identificat WALCI; Blood Gas Sample Site Radial, left; Blood Gas Sample Type Arterial; HCO3 ABG 49.9 mmol/L (22-26); Oxygen Device NC; PO2 ABG 68.1 mmHg (80.0-100.0)
[2022-04-01 00:10] LABS: ABG PCO2 83.1 mmHg (35-45)
[2022-04-01 00:15] LABS: Alanine Aminotransferase 23 U/L (0-33); Albumin Level 4.6 g/dL (3.5-5.2); Alkaline Phosphatase 83 U/L (35-105); Anion Gap 12.6 (5-19); Aspartate Amino Transferase 27 U/L (0-32); Blood Urea Nitrogen 18 mg/dL (6-20); Calcium 9.9 mg/dL (8.5-10.5); Chloride 85 mmol/L (98-107); Globulin 3.2 g/dL (1.3-4.6); Glucose 123 mg/dL (65-115); NT Pro B Type Natriuretic Pept 5287 pg/mL (0-125); Osmolality Calculated 289 mOsm/kg (285-295); Potassium 4.6 mmol/L (3.5-5.1); Sodium 138 mmol/L (136-145); Total Bilirubin 0.2 mg/dL (0.15-1.2); Total Protein 7.8 g/dL (6.6-8.7)
[2022-04-01 00:16] LABS: Influenza A by IFA negative (Negative); Influenza B by IFA negative (Negative)
[2022-04-01 00:18] LABS: Carbon Dioxide 45 mmol/L (22-29)
--- NOTE | 2022-04-01 01:24 | ECG_ITS ---
[facility] Test Date: 2022-04-01 Pat Name: Estelle Pascual Department: Room: Gender: Female Heel Lift Gouger: : 1970 Requested By: Lo Son Order Number: [id number] Tawanda MD: Taya Villalta M.D. Measurements Intervals [place] Rate: 96 P: 65 DC: 137 QRS: 66 QRSD: 84 T: 71 QT: 347 QTc: 438 Interpretive Statements SINUS RHYTHM Compared to ECG 03/31/2022 23:46:24 Sinus tachycardia no longer present Electronically Signed On 04-02-2022 15:38:36 MANAGER ADULT by Taya Villalta M.D. [email or web address]/store/[id number]
[2022-04-01] MEDS: FUROsemide 10 mg/mL SDV 4mL 40 MG IVP (01:29)
[2022-04-01 02:39] LABS: Troponin 5 2HR 20.61 ng/L (0-10)
[2022-04-01 02:47] LABS: Troponin 5 2HR Delta -2.39 ABS# (0-10)
--- NOTE | 2022-04-01 03:15 | PC.NURSE ---
Pt arrived to room 279 via stretcher from the ER. Pt is A&O x 4, talkative with family and staff. Pt is not in any respiratory distress, sating > 90% on 6 l/m via n/c at this time. Pt states she is starving. [place], emily crackers, and soda given. Pt ate sandwich, and drank soda. Pt toileted, used BSC w/SBA of one. JONI w/ease, denies pain at this time.
--- NOTE | 2022-04-01 03:32 | PM.HP ---
Providers/Chief Complaint Admitting Physician: Angle Rizzo MD Primary Care Provider: Reena López MD Chief Complaint: sob, lethargic History of Present Illness Estelle Pascual is a 51 year old female with past medical history of anxiety, COPD, GERD, hypertension, 3 L nasal cannula [id number] presents to the hospital with complaints of being short of breath for the last 2 days which is now worsening. She did state that she ran out of her. She is now requiring 6 L. Her baseline is 3 L normally. She has had a slight cough and is bringing up some sputum. Denies any chest pain, nausea, vomiting, diarrhea. Has been afebrile. Denies body aches, abdominal pain, dysuria. Shortness of breath gets worse on exertion but not historically when she laid tries to lays flat. ED course: On arrival to ER blood pressure 128/90, respiratory 14, pulse 106. ABG obtained showed 7.33/83. Bicarb on BMP 45. BNP 5200 patient placed on BiPAP. He was given 125 Solu-Medrol x1, Lasix 40x1. Troponin 23, 20.61. Delta -2.39. Echo in 2020 showed normal EF 60%. Medications/Allergies Home Medications Medication Instructions Recorded Confirmed Last Taken Type oxygen and concentrator #1 ea 03/03/20 04/01/22 Unknown Rx ferrous gluconate 324 mg (37.5 mg 324 mg PO BIDWM #60 tabs 03/25/21 04/01/22 Unknown Rx iron) tablet ipratropium 0.5 mg-albuterol 3 mg 3 ml inhalation Q6H PRN shortness 03/25/21 04/01/22 Unknown Rx (2.5 mg base)/3 mL nebulization of breath or wheezing #90 mL soln albuterol sulfate 90 mcg/actuation See Rx Instructions .Route 12/05/21 04/01/22 Unknown Rx aerosol inhaler (Ventolin HFA) .COMPLEX #18 grams budesonide-formoterol HFA 160 2 puff inhalation BID #10.2 grams 12/05/21 04/01/22 Unknown Rx mcg-4.5 mcg/actuation aerosol inhaler (Symbicort) metoprolol tartrate 25 mg tablet See Rx Instructions .Route 12/05/21 04/01/22 Unknown Rx .COMPLEX #60 tabs albuterol sulfate 2.5 mg/3 mL 2.5 mg (3 mL) inhalation QID PRN 12/08/21 04/01/22 Unknown Rx (0.083 %) solution for nebulization shortness of breath or wheezing #180 mL Allergies Allergy/AdvReac Type Severity Reaction Status Date / Time hydrocodone Allergy ADR-Vomitin Verified 04/04/21 11:36 g tramadol Allergy ADR-Itching Verified 04/04/21 11:36 PFSH Acute PFSH: Medical History Anxiety COPD (chronic obstructive pulmonary disease) Fracture of fifth metatarsal bone of right foot Gastroesophageal reflux disease Hypertension Right ankle pain Right foot pain Tenosynovitis of foot Surgical History History of tonsillectomy and adenoidectomy Hx of section Hx of cholecystectomy Hx of colonoscopy (~2012) Hx of hernia repair Hx of tubal ligation Family History Father Cancer lung Heart disease Mother Heart disease Social History Smoking and tobacco status: current every day smoker cigarettes Packs smoked per day: 1 Years cigarettes smoked: 45 Second hand smoke exposure: Yes Alcohol intake: former Former alcohol use details: sober x 20 yrs Caregiver/support person: Yes Lives independently: Yes Household members: spouse and children Marital status: service: No Current occupational status: unemployed History of recent travel: No Current gender identity: Female Special lauryn needs: No Agree to transfusion: No Financial difficulty paying for basics: Very Hard Vitals/I&O/Wt Last Vital Signs Temp 99.5 F 04/01/22 02:37 Pulse 96 04/01/22 02:37 Resp 22 H 04/01/22 02:37 BP 131/87 04/01/22 02:37 Pulse Ox 92 04/01/22 02:37 O2 Del Method 04/01/22 02:37 O2 Flow Rate 6 04/01/22 02:37 FiO2 40 04/01/22 00:23 Weight last 48 hrs Weight 55.338 kg Physical Exam Narrative: General: Alert oriented x3, patient seen sitting in bed answers questions appropriately. Says she is feeling better. HEENT: Normocephalic, atraumatic, EOMI, breathing comfortably on bipap Cardio: Regular rate rhythm, normal S1-S2, Respiratory: ronchi b/l at bases GI: Abdomen soft, nontender, nondistended, bowel sounds + Extremities: Pulses 2+, no edema, no cyanosis Data 03/31/22 23:40 03/31/22 23:40 A&P Assessment and plan (1) Acute respiratory failure with hypoxemia: (2) COPD (chronic obstructive pulmonary disease): Qualifiers: COPD type: unspecified COPD Qualified Code(s): J44.9 - Chronic obstructive pulmonary disease, unspecified (3) Acute exacerbation of chronic obstructive airways disease: (4) HTN (hypertension): Plan #COPD exacerbation #Hypertension ? ABG appreciated. No evidence of pneumonia on x-ray. DuoNeb every 6 hours as needed, Pulmicort twice daily - Temp 99.5. WBC 11 - Recheck CXR in AM - Cover with ceftriaxone and azithromycin ? Solu-Medrol 40 IV twice daily ? Check urine Legionella, bacterial antigen ? Sputum culture and gram stain ? Check respiratory viral panel ? Continue metoprolol titrate daily. ? Wean off oxygen as able ? Nicotine patch offered ? Lovenox for DVT prophylaxis ? Continue BiPAP as needed - Check d dimer to r/o PE Full code Attestations Medical Necessity Statement*: Greater than 2 midnight stay for COPD exacerbation. Coding Level of Care Code Acute Health Care Law Specialist for [facility] Justino Diagnoses Acute respiratory failure with hypoxemia J96.01 COPD (chronic obstructive pulmonary disease) J44.9 COPD type: unspecified COPD Acute exacerbation of chronic obstructive airways disease J44.1 HTN (hypertension) I10
[2022-04-01] MEDS: azithromycin 500 MG in sodium chloride 0.9% 250 ML 250 MG IV (04:21)
--- NOTE | 2022-04-01 05:06 | ECG_ITS ---
[facility] Test Date: 2022-04-01 Pat Name: Estelle Pascual Department: Room: 279 Gender: Female Podiatry Professor: : 1970 Requested By: Lo Son Order Number: [id number] Tawanda MD: Taya Villalta M.D. Measurements Intervals [place] Rate: 93 P: 70 MN: 139 QRS: 64 QRSD: 82 T: 62 QT: 374 QTc: 467 Interpretive Statements SINUS RHYTHM Compared to ECG 04/01/2022 01:30:31 No significant changes Electronically Signed On 04-03-2022 0:01:35 EVICTION SPECIALIST by Taya Villalta M.D. [id number]
[2022-04-01] MEDS: cefTRIAXone 1,000 MG in sodium chloride 0.9% (plus) 50 ML 100 MG IV (05:32)
[2022-04-01] MEDS: enoxaparin 40 mg/0.4 mL Syringe SUBCUT (05:32)
--- NOTE | 2022-04-01 05:51 | PC.NURSE ---
Pt request to come off of bipap at this time for approximately 5 hrs. RT notified and O2 via n/c applied.
[2022-04-01 05:53] LABS: D Dimer 0.55 ug/mIFEU (0-0.59)
[2022-04-01 06:02] LABS: Lactic Sepsis W/Reflex 2.4 mmol/L (0.5-2.2); Procalcitonin 0.19 ng/mL (0-0.5)
[2022-04-01 06:09] LABS: Thyroid Stimulating Hormone 0.24 uIU/mL (0.27-4.20)
[2022-04-01 06:36] LABS: Troponin 5 6HR 15.23 ng/L (0-10)
[2022-04-01 06:37] LABS: Troponin 5 6HR Delta -7.77 ng/L (0-12)
[2022-04-01 06:53] LABS: Reflex Lactate Order REFLEX LACTIC ORDERD
[2022-04-01] MEDS: budesonide 0.5 mg/2 mL Neb INHALATION ×2 (07:36→21:36)
[2022-04-01] MEDS: ipratropium-albuterol 3 mL Neb INHALATION ×4 (07:36→21:36)
[2022-04-01 08:26] LABS: Lactic Acid level (Lactate) 2.2 mmol/L (0.5-2.2)
[2022-04-01] MEDS: amlodipine 5 mg Tablet PO (08:32)
[2022-04-01] MEDS: famotidine 20 mg/2 mL INJ IVP ×2 (12:01→23:10)
[2022-04-01 12:25] LABS: Add Urine Microscopic? NO; Charge for UA Resulting for Rev
[2022-04-01 12:39] LABS: Procalcitonin 0.19 ng/mL (0-0.5); Vitamin B12 455 pg/mL (232-1245)
[2022-04-01 12:52] LABS: Iron 43 ug/dL (37-145); Percent Saturation 15.8 % (20-50); Total Iron Binding Capacity 271 mcg/dl; Unsaturated Iron Binding 228 ug/dL (112-347)
[2022-04-01 13:07] LABS: ABG PH Result 7.39 (7.35-7.45); Arterial Blood Gas Hematocrit 41.1 % (37-47); Base Excess ABG 18.9 mmol/L (-2.0-2.0); Blood Gas Allen Test Pos; Blood Gas Sample Site Radial, left; Blood Gas Sample Type Arterial; Carboxyhemoglobin 1.3 %THgb (0.4-20.1); HCO3 ABG 48.3 mmol/L (22-26); HGB O2 Sat 88.7 % (95-100); Ionized Calcium Level - ABG 1.1 mmol/L (1.1-1.4); Methemoglobin 0.3 % (0.4-1.5); Oxygen Device NC; Oxygen Saturation ABG 90.1; PO2 ABG 59.9 mmHg (80.0-100.0); Potassium Level - ABG 4.7 mmol/L (3.5-5.0); Total Hemoglobin 13.4 g/dL (12-16)
[2022-04-01 13:29] LABS: Free T4 Free Thyroxine 1.14 ng/dL (0.82-1.77)
[2022-04-01 13:49] LABS: Bilirubin Urine Neg (Negative); Blood Urine Neg (Negative); Glucose Urine UA Norm (Normal); Ketones Urine Negative (Negative); Leukocyte Esterase Urine Negative (Negative); Nitrate Urine Negative (Negative); Protein Urine Neg (Negative); Urine Appearance Clear (CLEAR); Urine Color Yellow (Yellow); Urobilinogen Urine Neg (Negative); pH Urine 6 (5-7)
[2022-04-01 13:58] LABS: ABG PCO2 79.8 mmHg (35-45)
--- NOTE | 2022-04-01 17:35 | CTR_ITS ---
PROCEDURE INFORMATION: Exam: CT Chest Without Contrast; Diagnostic Exam date and time: 04/01/2022 5:55 PM Age: 51 years old Clinical indication: Shortness of breath; Additional info: SOB TECHNIQUE: Imaging protocol: Diagnostic computed tomography of the chest without contrast. Radiation optimization: All CT scans at this facility use at least one of these dose optimization techniques: automated exposure control; mA and/or kV adjustment per patient size (includes targeted exams where dose is matched to clinical indication); or iterative reconstruction. COMPARISON: CT angio chest PE protcl [id number] 03/23/2021 2:54 PM RADIATION DOSE METRICS: Total DLP (mGy-cm): 295.3 FINDINGS: Lungs: Mild centrilobular emphysematous changes of the lungs. No consolidation. No masses. Pleural spaces: Unremarkable. No pneumothorax. No pleural effusion. Heart: No coronary artery calcifications. No cardiomegaly. No pericardial effusion. Lymph nodes: Unremarkable. No enlarged lymph nodes. Vasculature: Unremarkable. No aortic aneurysm. 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 No acute fracture. Soft tissues: Unremarkable. CT/CT chest [facility] [id number] IMPRESSION: 1. No acute findings. 2. Mild emphysematous changes of the lungs.
--- NOTE | 2022-04-01 17:36 | PM.MISC ---
Miscellaneous Note Purpose of Documentation: Admitted overnight. Cross coverage note. Note: H&P and labs appreciated. Examination patient was laying comfortably in bed with oxygen supplementation through the mouth. Patient was sleeping but wakes up to verbal stimulus. On waking up patient is awake and alert. States she has been having difficulty in breathing which has been getting worse along with confusion, weakness ongoing for last 2 to 3 weeks. At baseline she states she is on 3 to 3.5 L of oxygen supplementation but has been going up. Currently patient is on 5 L. During the day repeat ABG was done which showed worsening of hypercapnia and hypoxia again as patient was found to be of oxygen and was placed back on BiPAP. On exam patient has diffuse bilateral rhonchi all over the lung menjivar with occasional basilar crackles. Plan: Await sputum culture and blood culture. Repeat ABG in 2 to 3 hours of being on BiPAP. Overnight pulse oximetry. COVID-[address] chest without contrast. Oxygen supplementation keeping saturation over 88%. DuoNebs every 6 hour, budesonide twice daily. Continue with Solu-Medrol 40 mg IV every 8 hours for now. Last echocardiogram from 1 year ago shows an EF of 60% without R WMA, prominent right ventricular trabeculations noted. We will hold off on any further echo for now.
[2022-04-01] MEDS: ferrous gluconate 324 mg Tablet PO (17:42)
--- NOTE | 2022-04-01 18:01 | PC.NURSE ---
[address] via w/c
--- NOTE | 2022-04-01 18:07 | PC.NURSE ---
pt has returned to [address]
--- NOTE | 2022-04-01 19:25 | PC.NURSE ---
Pt requested to be put back on bipap at this time. Bipap applied per orders.
[2022-04-01 20:12] LABS: Adenovirus Not Detected (NOT DETECT); Chlamydia Pneumoniae Not Detected (NOT DETECT); Coronavirus 229E,HKU1,NL63,OC4 Not Detected (NOT DETECT); Human Metapneumovirus Not Detected (NOT DETECT); Human Rhinovirus/Enterovirus Not Detected (NOT DETECT); Influenza A Not Detected (NOT DETECT); Influenza A H1 Not Detected (NOT DETECT); Influenza A H1-2009 Not Detected (NOT DETECT); Influenza A H3 Not Detected (NOT DETECT); Influenza B Not Detected (NOT DETECT); Mycoplasma Pneumoniae Not Detected (NOT DETECT); Parainfluenza Virus Type 1 Not Detected (NOT DETECT); Parainfluenza Virus Type 2 Not Detected (NOT DETECT); Parainfluenza Virus Type 3 Not Detected (NOT DETECT); Parainfluenza Virus Type 4 Not Detected (NOT DETECT); Respiratory Syncytial Virus A Not Detected (NOT DETECT); Respiratory Syncytial Virus B Not Detected (NOT DETECT); SARS-COV-2 Not Detected (NOT DETECT)
[2022-04-01] MEDS: metoprolol tartrate 25 mg Tablet PO (20:27)
--- NOTE | 2022-04-01 23:56 | PC.NURSE ---
Pt request to come off of bipap at this time stating I'm dryer than a popcorn fart . Rt notified of pt coming off of bipap at this time.
[2022-04-02] VITALS (14 sets, daily range): BP systolic 92–114; BP diastolic 60–81; PULSE 68–86; RESP 15–26; TEMP 36.4–36.8; O2SAT 20–98
[2022-04-02] MEDS: ipratropium-albuterol 3 mL Neb INHALATION ×3 (01:48→20:59)
[2022-04-02] MEDS: azithromycin 500 MG in sodium chloride 0.9% 250 ML 250 MG IV (03:42)
[2022-04-02] MEDS: ondansetron 2 mg/ML SDV 2 mL 4 MG IVP (03:42)
--- NOTE | 2022-04-02 04:22 | PC.NURSE ---
Pt adamant regarding having bipap removed, stating she is nauseous. Bipap removed at this time and O2 via n/c placed.
[2022-04-02] MEDS: enoxaparin 40 mg/0.4 mL Syringe SUBCUT (04:53)
[2022-04-02] MEDS: cefTRIAXone 1,000 MG in sodium chloride 0.9% (plus) 50 ML 100 MG IV (04:54)
[2022-04-02 05:16] LABS: Basophils % 0.1 %; Hematocrit 41.1 % (37.0-47.0); Hemoglobin 12.4 g/dL (11.5-15.3); Lymphocytes # 1.1 10^3/uL (0.8-4.8); Lymphocytes % 9.4 %; Mean Corpuscular HGB Conc 30.2 g/dL (30.0-36.0); Mean Corpuscular Hemoglobin 30.6 pg (28.0-34.0); Mean Corpuscular Volume 101.5 fl (81-99); Mean Platelet Volume 11.7 fL (7.4-10.4); Monocytes # 0.6 10^3/uL (0.2-0.9); Monocytes % 5.1 %; Neutrophils # 9.75 10^3/uL (1.8-7.7); Neutrophils % 84.6 %; Nucleated Red Blood Cells % 0 %; Platelet Count 223 10^3/cmm (130-400); Red Blood Count 4.05 10^6/uL (4.1-5.3); Red Cell Distribution Width 13.6 % (12.1-15.1); White Blood Count 11.5 10^3/uL (4.0-10.0)
[2022-04-02 05:41] LABS: Estmated Average Glucose 103; Hemoglobin A1C 5.2 % (4.0-6.0)
[2022-04-02 05:45] LABS: Alanine Aminotransferase 14 U/L (0-33); Albumin Level 3.7 g/dL (3.5-5.2); Alkaline Phosphatase 59 U/L (35-105); Aspartate Amino Transferase 14 U/L (0-32); Blood Urea Nitrogen 19 mg/dL (6-20); Calcium 9.6 mg/dL (8.5-10.5); Chloride 91 mmol/L (98-107); Chol HDL Ratio 3.92 mg/dL (0.0-4.40); Cholesterol 141 mg/dL (0-200); Globulin 2.7 g/dL (1.3-4.6); Glomerular Filtration Rate 87.5 mL/min (90-130); Glucose 127 mg/dL (65-115); HDL Cholesterol 36 mg/dL (60-100); LDL Cholesterol Calculated 84 mg/dL (50-129); Magnesium 2.1 mg/dL (1.7-2.3); Osmolality Calculated 296 mOsm/kg (285-295); Phosphorus 2.9 mg/dL (2.5-4.5); Sodium 141 mmol/L (136-145); Total Bilirubin 0.2 mg/dL (0.15-1.2); Total Protein 6.4 g/dL (6.6-8.7); Triglycerides 105 mg/dL (0-150); VLDL Cholestrol Calculation 21 mg/dL (0-30)
[2022-04-02 05:59] LABS: Anion Gap 11.3 (5-19); Carbon Dioxide 43 mmol/L (22-29); Potassium 4.3 mmol/L (3.5-5.1)
--- NOTE | 2022-04-02 06:21 | PC.NURSE ---
Pt referred to Dr. Rizzo for review of H CO2 result. NNO.
[2022-04-02] MEDS: budesonide 0.5 mg/2 mL Neb INHALATION ×2 (08:58→20:59)
[2022-04-02] MEDS: ferrous gluconate 324 mg Tablet PO ×2 (09:53→16:41)
[2022-04-02] MEDS: metoprolol tartrate 25 mg Tablet PO ×2 (09:53→20:20)
[2022-04-02] MEDS: amlodipine 5 mg Tablet PO (09:53)
[2022-04-02] MEDS: famotidine 20 mg/2 mL INJ IVP (11:18)
--- NOTE | 2022-04-02 11:49 | PC.CHAP ---
Pastoral Care Encounter/Spiritual Assessment Type of Contact [] Declined high reach operator visit [] Patient/Family/Request visit [] Outpatient visit [] Follow-up visit [] Physician referral [] Code/Alert [v] Routine visit [] Staff referral [] Actively dying [] Patient sleeping [] Family support [] [] Out of room [] Palliative care [] [] Receiving care in room [] Pre-surgical visit [] Trauma [] Long length of stay [] ICU visit [] Other: Relational/Emotional Strength [x Patient feels connected with others/family/visitors/staff [] Distress [] Loneliness/isolation [] Abandonment Spirituality of Patient []x Person of Unique [] Attends Caodaism of their Unique [x] Believes in Prayer [] Reads Bible or Zoroastrian materials [] There are Spiritual issues to be addressed Manufacturing Technology Analyst Interventions []x Prayer [x] Active listening [] Non-anxious presence [x] Spiritual/emotional support [] Crisis/trauma care [] Spiritual counseling [] Bereavement support [] Provided bereavement packet [x] Provided Bible/devotional materials [] Provided toy/stuffed animal, coloring book to patient or family member [] Provided Communion [] Anointing/[place] [] Salvation [x] Completed spiritual assessment [] Other: Impact on Illness or Injury [] Angry [] Fearful [] Anxious [] Often cries [] Exhaustion [] Unable to work [] Unable to attend amish [] Unable to walk/stand [] Unable to read [] Unable to drive [] Unable to eat/drink [] Unable to sleep [] Unable to be with family [] Patient intubated [] Other: Summary Time spent with patient 15 min
--- NOTE | 2022-04-02 17:11 | P.PN_ITS ---
Subjective Subjective: No acute events overnight. Tolerated BiPAP well overnight. Yesterday in the evening when found of BiPAP was found to have hypercapnia. Today morning on examination lying comfortably in bed, awake and alert on 5 L oxygen supplementation saturating more than 92% Vitals/I&O/Wt Last Vital Signs Temp 97.9 F 04/02/22 11:48 Pulse 86 04/02/22 11:48 Resp 15 04/02/22 11:48 BP 105/71 04/02/22 11:48 Pulse Ox 94 04/02/22 11:48 O2 Del Method 04/02/22 11:48 O2 Flow Rate 5 04/02/22 08:58 FiO2 40 04/02/22 01:47 04/02/22 04/02/22 04/02/22 06:59 14:59 22:59 Intake Total 540 / 2580 600 / 600 Balance 540 / 1780 600 / 600 Weight last 48 hrs Weight 55.338 kg Physical Exam Narrative: General: No acute distress, AO x3, on nasal cannula HEENT: PERRLA, pupils bilaterally equal and reactive Chest: Bronchial sounds bilaterally, rhonchi all over the lung menjivar CVS: S1-S2 regular, no murmurs, no tachycardia, no gallops, no rubs Abdomen: Soft, nontender, no organomegaly, bowel sounds present Neuro: No focal deficits, no facial deformity, AO x3, power 5/5 in all limbs Data 04/02/22 04:20 04/02/22 04:20 Micro: Microbiology 04/01/22 05:48 Gram Stain - Final Sputum - Expectorated Sputum Sputum Culture - Preliminary 04/01/22 12:00 Legionella Urinary Antigen - Final Urine,Clean Catch 04/01/22 12:00 Bacterial Antigens - Final Urine,Clean Catch A&P Assessment and plan (1) Acute on chronic respiratory failure with hypoxia and hypercapnia: No signs of consolidation currently on CT chest. Follow-up sputum culture. Respiratory viral panel negative. Flu negative. Continue with DuoNebs every 6 hour, budesonide twice daily. Solu-Medrol 40 mg IV every 8 hourly. Will wean down Solu-Medrol within next 24 hours. BiPAP as needed. Oxygen supplementation keeping saturation over 88%. Echocardiogram on previous admission in 2020 showed an EF of 60 to 65% without regional wall motion normality. (2) Acute exacerbation of chronic obstructive airways disease: (3) COPD (chronic obstructive pulmonary disease): Qualifiers: COPD type: unspecified COPD Qualified Code(s): J44.9 - Chronic obstructive pulmonary disease, unspecified (4) HTN (hypertension): Continue home dose of metoprolol. Plan Full code. Cardiac diet. Lovenox for DVT prophylaxis. Famotidine for PUD prophylaxis Attestations Medical Necessity Statement*: Requires further hospitalization for management of hypoxic and hypercapnic respiratory failure in setting of COPD exacerbation Time Spent in Patient Care: Greater than 35 minutes Coding Level of Care Code Acute Mathematics Lecturer for [facility] Fwd Diagnoses Acute on chronic respiratory failure with hypoxia and hypercapnia J96.21; J96.2 2 Acute exacerbation of chronic obstructive airways disease J44.1 COPD (chronic obstructive pulmonary disease) J44.9 COPD type: unspecified COPD HTN (hypertension) I10
[2022-04-03] VITALS (11 sets, daily range): BP systolic 99–125; BP diastolic 67–80; PULSE 62–80; RESP 12–25; TEMP 36.4–37.3; O2SAT 79–96
[2022-04-03] MEDS: famotidine 20 mg/2 mL INJ IVP ×2 (00:21→12:08)
[2022-04-03] MEDS: ipratropium-albuterol 3 mL Neb INHALATION ×4 (01:44→22:40)
[2022-04-03] MEDS: azithromycin 500 MG in sodium chloride 0.9% 250 ML 250 MG IV (03:51)
[2022-04-03] MEDS: cefTRIAXone 1,000 MG in sodium chloride 0.9% (plus) 50 ML 100 MG IV (05:23)
[2022-04-03] MEDS: enoxaparin 40 mg/0.4 mL Syringe SUBCUT (05:23)
[2022-04-03] MEDS: budesonide 0.5 mg/2 mL Neb INHALATION ×2 (08:30→22:40)
[2022-04-03] MEDS: amlodipine 5 mg Tablet PO (09:45)
[2022-04-03] MEDS: ferrous gluconate 324 mg Tablet PO ×2 (09:45→16:49)
[2022-04-03] MEDS: metoprolol tartrate 25 mg Tablet PO ×2 (09:45→21:47)
[2022-04-03] MEDS: acetaminophen 325 mg Tablet 650 MG PO (12:08)
--- NOTE | 2022-04-03 14:19 | P.PN_ITS ---
Subjective Subjective: No acute events overnight. Patient seen with family at bedside. Continues to remain on 5 L saturating around 90 to 93%. Patient is comfortable. Denies any nausea, vomiting, headache. Asking if she can eat a pizza and a bread stick today. States feeling better. Asking when can she be discharged. Was on BiPAP overnight and tolerated well. Vitals/I&O/Wt Last Vital Signs Temp 99.1 F 04/03/22 11:59 Pulse 76 04/03/22 14:13 Resp 18 04/03/22 14:07 BP 125/80 04/03/22 11:59 Pulse Ox 93 04/03/22 14:07 O2 Del Method 04/03/22 14:07 O2 Flow Rate 5 04/03/22 14:07 FiO2 40 04/03/22 08:00 04/02/22 04/03/22 04/03/22 22:59 06:59 14:59 Intake Total 240 / 840 300 / 1140 240 / 240 Output Total 0 / 0 Balance 240 / 840 300 / 1140 240 / 240 Physical Exam Narrative: General: No acute distress, AO x3, on nasal cannula HEENT: PERRLA, pupils bilaterally equal and reactive Chest: Bronchial sounds bilaterally, rhonchi all over the lung menjivar CVS: S1-S2 regular, no murmurs, no tachycardia, no gallops, no rubs Abdomen: Soft, nontender, no organomegaly, bowel sounds present Neuro: No focal deficits, no facial deformity, AO x3, power 5/5 in all limbs Data 04/02/22 04:20 04/02/22 04:20 Micro: Microbiology 04/01/22 05:48 Gram Stain - Final Sputum - Expectorated Sputum Sputum Culture - Final A&P Assessment and plan (1) Acute on chronic respiratory failure with hypoxia and hypercapnia: No signs of consolidation currently on CT chest. Follow-up sputum culture. Respiratory viral panel negative. Flu negative. Continue with DuoNebs every 6 hour, budesonide twice daily. Solu-Medrol 40 mg IV every 8 hourly. Will wean down Solu-Medrol within next 24 hours. BiPAP as needed. Oxygen supplementation keeping saturation over 88%. Echocardiogram on previous admission in 2020 showed an EF of 60 to 65% without regional wall motion normality. Strict input output charting, daily weights. Fluid restriction up to 1500 cc. Lasix 40 mg IV one-time. (2) Acute exacerbation of chronic obstructive airways disease: (3) COPD (chronic obstructive pulmonary disease): Qualifiers: COPD type: unspecified COPD Qualified Code(s): J44.9 - Chronic obstructive pulmonary disease, unspecified (4) HTN (hypertension): Continue home dose of metoprolol. Plan Full code. Cardiac diet. Lovenox for DVT prophylaxis. Famotidine for PUD prophylaxis Attestations Medical Necessity Statement*: Requires further hospitalization for management of acute on chronic hypoxic and hypercapnic respiratory failure in setting of COPD exacerbation Time Spent in Patient Care: Greater than 35 minutes Coding Level of Care Code Acute Lunch Truck Operator for g Fwd Diagnoses Acute on chronic respiratory failure with hypoxia and hypercapnia J96.21; J96.22 Acute exacerbation of chronic obstructive airways disease J44.1 COPD (chronic obstructive pulmonary disease) J44.9 COPD type: unspecified COPD HTN (hypertension) I10
[2022-04-03] MEDS: acetaZOLAMIDE 250 mg Tablet 500 MG PO (15:22)
[2022-04-03] MEDS: FUROsemide 10 mg/mL SDV 4mL 40 MG IVP (15:22)
[2022-04-04] VITALS (13 sets, daily range): BP systolic 97–108; BP diastolic 62–75; PULSE 58–72; RESP 15–18; TEMP 36.5–36.9; O2SAT 93–99
[2022-04-04] MEDS: famotidine 20 mg/2 mL INJ IVP ×3 (00:18→23:15)
[2022-04-04] MEDS: ipratropium-albuterol 3 mL Neb INHALATION ×4 (01:54→21:20)
[2022-04-04 02:03] LABS: Basophils % 0.1 %; Hematocrit 40.7 % (37.0-47.0); Hemoglobin 12.1 g/dL (11.5-15.3); Lymphocytes # 0.8 10^3/uL (0.8-4.8); Lymphocytes % 6.7 %; Mean Corpuscular HGB Conc 29.7 g/dL (30.0-36.0); Mean Corpuscular Hemoglobin 30.1 pg (28.0-34.0); Mean Corpuscular Volume 101.2 fl (81-99); Mean Platelet Volume 11.7 fL (7.4-10.4); Monocytes # 0.5 10^3/uL (0.2-0.9); Monocytes % 4.6 %; Neutrophils # 9.77 10^3/uL (1.8-7.7); Neutrophils % 87.8 %; Nucleated Red Blood Cells % 0 %; Platelet Count 203 10^3/cmm (130-400); Red Blood Count 4.02 10^6/uL (4.1-5.3); Red Cell Distribution Width 13.6 % (12.1-15.1); White Blood Count 11.1 10^3/uL (4.0-10.0)
[2022-04-04 02:29] LABS: Alanine Aminotransferase 55 U/L (0-33); Albumin Level 3.5 g/dL (3.5-5.2); Alkaline Phosphatase 51 U/L (35-105); Anion Gap 11.6 (5-19); Aspartate Amino Transferase 28 U/L (0-32); Blood Urea Nitrogen 24 mg/dL (6-20); Calcium 8.7 mg/dL (8.5-10.5); Carbon Dioxide 33 mmol/L (22-29); Chloride 97 mmol/L (98-107); Globulin 2.4 g/dL (1.3-4.6); Glomerular Filtration Rate 87.5 mL/min (90-130); Glucose 151 mg/dL (65-115); Osmolality Calculated 293 mOsm/kg (285-295); Potassium 3.6 mmol/L (3.5-5.1); Sodium 138 mmol/L (136-145); Total Bilirubin 0.2 mg/dL (0.15-1.2); Total Protein 5.9 g/dL (6.6-8.7)
[2022-04-04] MEDS: acetaminophen 325 mg Tablet 650 MG PO ×2 (04:08→17:56)
[2022-04-04] MEDS: azithromycin 500 MG in sodium chloride 0.9% 250 ML 250 MG IV (04:08)
[2022-04-04] MEDS: cefTRIAXone 1,000 MG in sodium chloride 0.9% (plus) 50 ML 100 MG IV (05:38)
[2022-04-04] MEDS: enoxaparin 40 mg/0.4 mL Syringe SUBCUT (05:38)
[2022-04-04] MEDS: ferrous gluconate 324 mg Tablet PO ×2 (08:03→17:54)
[2022-04-04] MEDS: acetaZOLAMIDE 250 mg Tablet 500 MG PO (08:03)
[2022-04-04] MEDS: amlodipine 5 mg Tablet PO (08:03)
[2022-04-04] MEDS: budesonide 0.5 mg/2 mL Neb INHALATION ×2 (08:03→21:20)
[2022-04-04] MEDS: metoprolol tartrate 25 mg Tablet PO ×2 (08:06→20:05)
--- NOTE | 2022-04-04 14:51 | PM.PN ---
Subjective Subjective: No acute events overnight. Today morning on examination seen sleeping. Wakes up to verbal stimulus. Still on 5 L oxygen supplementation saturating more than 93%. Documented urine output of around 4300 cc in last 24 hours. Vitals/I&O/Wt Last Vital Signs Temp 98.0 F 04/04/22 11:39 Pulse 68 04/04/22 14:00 Resp 16 04/04/22 14:00 BP 105/68 04/04/22 11:39 Pulse Ox 93 04/04/22 14:00 O2 Del Method 04/04/22 14:00 O2 Flow Rate 5 04/04/22 14:00 FiO2 40 04/04/22 01:54 04/03/22 04/04/22 04/04/22 22:59 06:59 14:59 Intake Total 600 / 840 300 / 1140 300 / 300 Output Total 3100 / 3100 900 / 4000 Balance -2500 / -2260 -600 / -2860 300 / 300 Physical Exam Narrative: General: No acute distress, AO x3, on nasal cannula HEENT: PERRLA, pupils bilaterally equal and reactive Chest: Bronchial sounds bilaterally, rhonchi all over the lung menjivar CVS: S1-S2 regular, no murmurs, no tachycardia, no gallops, no rubs Abdomen: Soft, nontender, no organomegaly, bowel sounds present Neuro: No focal deficits, no facial deformity, AO x3, power 5/5 in all limbs Data 04/04/22 01:19 04/04/22 01:19 Micro: Microbiology 04/01/22 05:48 Gram Stain - Final Sputum - Expectorated Sputum Sputum Culture - Final A&P Assessment and plan (1) Acute on chronic respiratory failure with hypoxia and hypercapnia: No signs of consolidation currently on CT chest. Follow-up sputum culture. Respiratory viral panel negative. Flu negative. Continue with DuoNebs every 6 hour, budesonide twice daily. Solu-Medrol 40 mg IV every 8 hourly. Will wean down Solu-Medrol within next 24 hours. BiPAP as needed. Oxygen supplementation keeping saturation over 88%. Echocardiogram on previous admission in 2020 showed an EF of 60 to 65% without regional wall motion normality. Strict input output charting, daily weights. Fluid restriction up to 1500 cc. Lasix 40 mg IV one-time. (2) Acute exacerbation of chronic obstructive airways disease: (3) COPD (chronic obstructive pulmonary disease): Qualifiers: COPD type: unspecified COPD Qualified Code(s): J44.9 - Chronic obstructive pulmonary disease, unspecified (4) HTN (hypertension): Continue home dose of metoprolol. Plan Full code. Cardiac diet. Lovenox for DVT prophylaxis. Famotidine for PUD prophylaxis Plan for the day: Continue with nebulization. Wean Solu-Medrol to 40 mg twice daily Stop Azithromycin. Sputum culture. Continue with Diamox 500 mg daily. Repeat IV Lasix. Oxygen supplementation keeping saturation over 88%. BiPAP nightly Attestations Medical Necessity Statement*: Requires further hospitalization for management of acute hypoxic and hypercapnic respiratory failure Time Spent in Patient Care: Greater than 35 minutes Coding Level of Care Code Acute Computer Networker for [facility] Fw Diagnoses Acute on chronic respiratory failure with hypoxia and hypercapnia J96.21; J96.22 Acute exacerbation of chronic obstructive airways disease J44.1 COPD (chronic obstructive pulmonary disease) J44.9 COPD type: unspecified COPD HTN (hypertension) I10
[2022-04-04] MEDS: FUROsemide 10 mg/mL SDV 4mL 40 MG IVP (15:29)
[2022-04-05] VITALS (10 sets, daily range): BP systolic 97–125; BP diastolic 63–81; PULSE 62–72; RESP 15–18; TEMP 36.6–36.7; O2SAT 84–99
[2022-04-05] MEDS: ipratropium-albuterol 3 mL Neb INHALATION ×2 (01:26→08:41)
[2022-04-05 02:04] LABS: Basophils % 0.1 %; Hematocrit 41.1 % (37.0-47.0); Hemoglobin 12.7 g/dL (11.5-15.3); Lymphocytes # 0.6 10^3/uL (0.8-4.8); Lymphocytes % 5.7 %; Mean Corpuscular HGB Conc 30.9 g/dL (30.0-36.0); Mean Corpuscular Hemoglobin 30.4 pg (28.0-34.0); Mean Corpuscular Volume 98.3 fl (81-99); Mean Platelet Volume 11.2 fL (7.4-10.4); Monocytes # 0.5 10^3/uL (0.2-0.9); Monocytes % 4.7 %; Neutrophils # 9.96 10^3/uL (1.8-7.7); Neutrophils % 88.7 %; Nucleated Red Blood Cells % 0 %; Platelet Count 211 10^3/cmm (130-400); Red Blood Count 4.18 10^6/uL (4.1-5.3); Red Cell Distribution Width 13.5 % (12.1-15.1); White Blood Count 11.2 10^3/uL (4.0-10.0)
[2022-04-05 02:30] LABS: Alanine Aminotransferase 69 U/L (0-33); Albumin Level 3.6 g/dL (3.5-5.2); Alkaline Phosphatase 50 U/L (35-105); Anion Gap 12.9 (5-19); Aspartate Amino Transferase 24 U/L (0-32); Blood Urea Nitrogen 27 mg/dL (6-20); Carbon Dioxide 32 mmol/L (22-29); Chloride 96 mmol/L (98-107); Globulin 2.3 g/dL (1.3-4.6); Glucose 155 mg/dL (65-115); Osmolality Calculated 292 mOsm/kg (285-295); Potassium 3.9 mmol/L (3.5-5.1); Sodium 137 mmol/L (136-145); Total Bilirubin 0.2 mg/dL (0.15-1.2); Total Protein 5.9 g/dL (6.6-8.7)
[2022-04-05] MEDS: azithromycin 500 MG in sodium chloride 0.9% 250 ML 250 MG IV (04:38)
[2022-04-05] MEDS: enoxaparin 40 mg/0.4 mL Syringe SUBCUT (04:43)
[2022-04-05] MEDS: cefTRIAXone 1,000 MG in sodium chloride 0.9% (plus) 50 ML 100 MG IV (05:39)
[2022-04-05] MEDS: acetaZOLAMIDE 250 mg Tablet 500 MG PO (08:19)
[2022-04-05] MEDS: metoprolol tartrate 25 mg Tablet PO (08:20)
[2022-04-05] MEDS: ferrous gluconate 324 mg Tablet PO (08:20)
[2022-04-05] MEDS: amlodipine 5 mg Tablet PO (08:20)
[2022-04-05] MEDS: acetaminophen 325 mg Tablet 650 MG PO (08:30)
[2022-04-05] MEDS: budesonide 0.5 mg/2 mL Neb INHALATION (08:42)
--- NOTE | 2022-04-05 10:41 | PM.DCS ---
Discharge Providers Date of Admission: 04/01/22 01:38 Date of Discharge: April 05, 2022 Attending Provider at Admission: Angle Rizzo MD Attending Provider at Discharge: Haider Velasco MD Primary Care Provider: Reena López MD Diagnoses at Discharge Discharge Diagnosis (1) Acute on chronic respiratory failure with hypoxia and hypercapnia: Status: Acute (2) Acute exacerbation of chronic obstructive airways disease: Status: Acute (3) COPD (chronic obstructive pulmonary disease): Status: Acute Qualifiers: COPD type: unspecified COPD Qualified Code(s): J44.9 - Chronic obstructive pulmonary disease, unspecified (4) HTN (hypertension): Status: Acute Reason for Visit Reason for Visit: sob, lethargic Brief History: History as per HPI: Estelle Pascual is a 51 year old female with past medical history of anxiety, COPD, GERD, hypertension, 3 L nasal cannula [id number] presents to the hospital with complaints of being short of breath for the last 2 days which is now worsening.? She did state that she ran out of her.? She is now requiring 6 L.? Her baseline is 3 L normally.? She has had a slight cough and is bringing up some sputum.? Denies any chest pain, nausea, vomiting, diarrhea.? Has been afebrile.? Denies body aches, abdominal pain, dysuria.? Shortness of breath gets worse on exertion but not historically when she laid tries to lays flat. ED course: On arrival to ER blood pressure 128/90, respiratory 14, pulse 106.? ABG obtained showed 7.33/83.? Bicarb on BMP 45.? BNP 5200 patient placed on BiPAP.? He was given 125 Solu-Medrol x1, Lasix 40x1.? Troponin 23, 20.61.? Delta -2.39.? Echo in 2020 showed normal EF 60%. Hospital Course Hospital Course Patient was admitted to the hospital for further evaluation and management of acute on chronic hypoxic and hypercapnic respiratory failure in setting of COPD exacerbation. Pneumonia was ruled out with a negative consolidation on CT imaging. Respiratory viral panel was negative for any infections. She was treated with nebulization treatment and systemic steroids along with diuretics for right-sided heart failure. She responded well to the treatment. Oxygen requirements have been trending down. There is a concern for obstructive sleep apnea hence overnight pulse oximetry was done and patient qualified for BiPAP 04/10 with oxygen. He has been discharged in hemodynamically stable condition with inhalation treatment at home, advised to continue with BiPAP ventilation, steroid taper and oral antibiotics for 5 more days. Physical Exam Narrative: General: No acute distress, AO x3, on nasal cannula HEENT: PERRLA, pupils bilaterally equal and reactive Chest: Bronchial sounds bilaterally, rhonchi all over the lung menjivar CVS: S1-S2 regular, no murmurs, no tachycardia, no gallops, no rubs Abdomen: Soft, nontender, no organomegaly, bowel sounds present Neuro: No focal deficits, no facial deformity, AO x3, power 5/5 in all limbs Discharge Data Studies Completed and Pending Completed Studies During Hospitalization Category Date Time Status CT chest wo con [id number] Routine Cat Scan 04/01/22 17:35 Completed XR chest 1V portable [id number] Stat Exams 03/31/22 23:24 Completed Pending at discharge Category Date Time Status Sputum Culture and Gram Stain Stat Lab 04/04/22 14:48 Uncollected Radiology Impressions Chest X-Ray 03/31/22 23:24 IMPRESSION: No acute findings. Chest CT 04/01/22 17:35 IMPRESSION: 1. No acute findings. 2. Mild emphysematous changes of the lungs. Laboratory Results WBC 11.2 10^3/uL (4.0-10.0) H 04/05/22 01:57 RBC 4.18 10^6/uL (4.1-5.3) 04/05/22 01:57 Hgb 12.7 g/dL (11.5-15.3) 04/05/22 01:57 Hct 41.1 % (37.0-47.0) 04/05/22 01:57 MCV 98.3 fl (81-99) 04/05/22 01:57 MCH 30.4 pg (28.0-34.0) 04/05/22 01:57 MCHC 30.9 g/dL (30.0-36.0) 04/05/22 01:57 RDW 13.5 % (12.1-15.1) 04/05/22 01:57 Plt Count 211 10^3/cmm (130-400) 04/05/22 01:57 MPV 11.2 fL (7.4-10.4) H 04/05/22 01:57 Neut % (Auto) 88.7 % 04/05/22 01:57 Lymph % (Auto) 5.7 % 04/05/22 01:57 [place] % (Auto) 4.7 % 04/05/22 01:57 Eos % (Auto) 0.0 % 04/05/22 01:57 Baso % (Auto) 0.1 % 04/05/22 01:57 Neut # (Auto) 9.96 10^3/uL (1.8-7.7) H 04/05/22 01:57 Lymph # (Auto) 0.6 10^3/uL (0.8-4.8) L 04/05/22 01:57 [place] # (Auto) 0.5 10^3/uL (0.2-0.9) 04/05/22 01:57 Eos # (Auto) 0.0 10^3/uL (0.0-0.8) 04/05/22 01:57 Baso # (Auto) 0.0 10^3/uL (0.0-0.1) 04/05/22 01:57 Nucleated RBC % (auto) 0 % 04/05/22 01:57 Nucleated RBCs # 0.0 /100WBC 04/05/22 01:57 D-Dimer 0.55 ug/mIFEU (0-0.59) 04/01/22 05:19 Specimen Type Arterial 04/01/22 12:58 Sample Site Radial, left 04/01/22 12:58 ABG pH 7.39 (7.35-7.45) 04/01/22 12:58 ABG pCO2 79.8 mmHg (35-45) H* 04/01/22 12:58 ABG pO2 59.9 mmHg (80.0-100.0) L 04/01/22 12:58 ABG HCO3 48.3 mmol/L (22-26) H 04/01/22 12:58 ABG O2 Saturation 90.1 04/01/22 12:58 ABG Base Excess 18.9 mmol/L (-2.0-2.0) H 04/01/22 12:58 Braxton Test Pos 04/01/22 12:58 A-a O2 Gradient Not Reportable 04/01/22 12:58 Hematocrit 41.1 % (37-47) 04/01/22 12:58 Hgb O2 Saturation 88.7 % (95-100) L 04/01/22 12:58 Carboxyhemoglobin 1.3 %THgb (0.4-20.1) 04/01/22 12:58 Methemoglobin 0.3 % (0.4-1.5) L 04/01/22 12:58 Total Hemoglobin 13.4 g/dL (12-16) 04/01/22 12:58 Sodium 140.0 mmol/L (131-143) 04/01/22 12:58 Potassium 4.7 mmol/L (3.5-5.0) 04/01/22 12:58 Glucose 148.0 mg/dL (70-115) H 04/01/22 12:58 Ionized Calcium 1.1 mmol/L (1.1-1.4) 04/01/22 12:58 O2 Delivery Device Nc 04/01/22 12:58 O2 Liters/Min 5.0 % 04/01/22 12:58 Orthopedic Physician Assistant ID Leonel 04/01/22 12:58 Sodium 137 mmol/L (136-145) 04/05/22 01:57 Potassium 3.9 mmol/L (3.5-5.1) 04/05/22 01:57 Chloride 96 mmol/L (98-107) L 04/05/22 01:57 Carbon Dioxide 32 mmol/L (22-29) H 04/05/22 01:57 Anion Gap 12.9 (5-19) 04/05/22 01:57 BUN 27 mg/dL (6-20) H 04/05/22 01:57 Creatinine 0.8 mg/dL (0.5-0.9) 04/05/22 01:57 GFR Calculation 75.0 mL/min (90-130) L 04/05/22 01:57 Glucose 155 mg/dL (65-115) H 04/05/22 01:57 Estimat Average Glucose 103 04/02/22 04:20 Hemoglobin A1c 5.2 % (4.0-6.0) 04/02/22 04:20 Calculated Osmolality 292 mOsm/kg (285-295) 04/05/22 01:57 Lactic Acid 2.4 mmol/L (0.5-2.2) H 04/01/22 05:19 Lactic Acid (Sepsis) 2.2 mmol/L (0.5-2.2) 04/01/22 07:51 Calcium 9.0 mg/dL (8.5-10.5) 04/05/22 01:57 Phosphorus 2.9 mg/dL (2.5-4.5) 04/02/22 04:20 Magnesium 2.1 mg/dL (1.7-2.3) 04/02/22 04:20 Iron 43 ug/dL (37-145) 04/01/22 05:19 TIBC 271 mcg/dl 04/01/22 05:19 % Saturation 15.8 % (20-50) L 04/01/22 05:19 Unsat Iron Binding 228 ug/dL (112-347) 04/01/22 05:19 Total Bilirubin 0.2 mg/dL (0.15-1.2) 04/05/22 01:57 AST 24 U/L (0-32) 04/05/22 01:57 ALT 69 U/L (0-33) H 04/05/22 01:57 Alkaline Phosphatase 50 U/L (35-105) 04/05/22 01:57 Troponin T Baseline 23 ng/L (0-10) H 03/31/22 23:40 Troponin T 120 Minute 20.61 ng/L (0-10) H 04/01/22 01:25 Delta Troponin T -2.39 ABS# (0-10) L 04/01/22 01:25 Troponin T Hi Sens 6Hr 15.23 ng/L (0-10) H 04/01/22 05:19 Troponin T Hi Sens 6Hr Delta -7.77 ng/L (0-12) L 04/01/22 05:19 NT-Pro-B Natriuret Pep 5287 pg/mL (0-125) H 03/31/22 23:40 Total Protein 5.9 g/dL (6.6-8.7) L 04/05/22 01:57 Albumin 3.6 g/dL (3.5-5.2) 04/05/22 01:57 Globulin 2.3 g/dL (1.3-4.6) 04/05/22 01:57 Triglycerides 105 mg/dL (0-150) 04/02/22 04:20 Cholesterol 141 mg/dL (0-200) 04/02/22 04:20 LDL Cholesterol, Calc 84 mg/dL (50-129) 04/02/22 04:20 Total VLDL Cholesterol 21 mg/dL (0-30) 04/02/22 04:20 HDL Cholesterol 36 mg/dL (60-100) L 04/02/22 04:20 Cholesterol/HDL Ratio 3.92 mg/dL (0.0-4.40) 04/02/22 04:20 Vitamin B12 455 pg/mL (232-1245) 04/01/22 05:19 Folate 5.0 ng/mL (4.8-37.3) 04/01/22 05:19 Procalcitonin 0.19 ng/mL (0-0.5) 04/01/22 05:19 Procalcitonin 0.19 ng/mL (0-0.5) 04/01/22 05:19 TSH 0.24 uIU/mL (0.27-4.20) L 04/01/22 05:19 Free T4 1.14 ng/dL (0.82-1.77) 04/01/22 05:19 Free T3 2.0 PG/ML (2.0-4.4) 04/01/22 05:19 Urine Color Yellow (Yellow) 04/01/22 12:00 Urine Appearance Clear (CLEAR) 04/01/22 12:00 Urine pH 6 (5-7) 04/01/22 12:00 Ur Specific [place] 1.010 (1.005-1.030) 04/01/22 12:00 Urine Protein Neg (Negative) 04/01/22 12:00 Urine Glucose (UA) Norm (Normal) 04/01/22 12:00 Urine Ketones Negative (Negative) 04/01/22 12:00 Urine Blood Neg (Negative) 04/01/22 12:00 Urine Nitrate Negative (Negative) 04/01/22 12:00 Urine Bilirubin Neg (Negative) 04/01/22 12:00 Urine Urobilinogen Neg mg/dL (Negative) 04/01/22 12:00 Ur Leukocyte Esterase Negative (Negative) 04/01/22 12:00 Coronavirus 229E (PCR) Not detected (NOT DETECT) 04/01/22 18:18 Influenza Type A Ag negative (Negative) 03/31/22 23:55 Influenza Type B Ag negative (Negative) 03/31/22 23:55 SARS-CoV-2 (PCR) Not detected (NOT DETECT) 04/01/22 18:18 Vitals Last Vital Signs Temp 97.8 F 04/05/22 08:00 Pulse 65 04/05/22 08:49 Resp 18 04/05/22 08:40 BP 124/75 04/05/22 08:00 Pulse Ox 93 04/05/22 08:40 O2 Del Method 04/05/22 08:40 O2 Flow Rate 4 04/05/22 08:40 FiO2 40 04/05/22 01:27 Discharge Plan Discharge Patient Disposition: Home Condition: Stable Prescriptions: New amlodipine 5 mg Tablet 5 mg PO DAILY Qty: 30 0RF prednisone 10 mg tablet See Rx Instructions .ROUTE .COMPLEX Qty: 40 0RF Rx Instructions: prednisone 5 mg: take 8 tablets (40 mg) on Day 1; 7 tablets (35 mg) on Day 2; then decrease by 1 tablet every day until finished levofloxacin 500 mg tablet 500 mg PO Q24H 5 Days Qty: 5 0RF Augmentin 500-125 mg tablet 1 tab PO BID Qty: 10 0RF Lasix 20 mg tablet 20 mg PO DAILY Qty: 30 0RF Continued (DME) oxygen and concentrator See Rx Instructions .Route .MEDSUPPLY Qty: 1 0RF Rx Instructions: use 2L O2 via NC with exercise albuterol sulfate [Ventolin HFA] 90 mcg/actuation HFA aerosol inhaler See Rx Instructions .ROUTE .COMPLEX Qty: 18 5RF Dose Instruction: INHALE 2 PUFFS INTO LUNGS FOUR TIMES DAILY NEEDED FOR SHORTNESS OF BREATH OR wheezing Rx Instructions: INHALE 2 PUFFS INTO LUNGS FOUR TIMES DAILY NEEDED FOR SHORTNESS OF BREATH OR wheezing metoprolol tartrate 25 mg tablet See Rx Instructions .ROUTE .COMPLEX Qty: 60 4RF Dose Instruction: TAKE ONE TABLET BY MOUTH TWICE DAILY AT 9AM AND 9PM Rx Instructions: TAKE ONE TABLET BY MOUTH TWICE DAILY AT 9AM AND 9PM budesonide-formoterol [Symbicort] 160-4.5 mcg/actuation HFA aerosol inhaler 2 puff inhalation BID Qty: 10.2 3RF albuterol sulfate 2.5 mg /3 mL (0.083 %) solution for nebulization 2.5 mg INHALATION QID PRN (Reason: shortness of breath or wheezing) Qty: 180 2RF ferrous gluconate 324 mg (37.5 mg iron) Tablet 324 mg PO BIDWM Qty: 60 0RF ipratropium-albuterol 0.5 mg-3 mg(2.5 mg base)/3 mL solution for nebulization 3 ml inhalation Q6H PRN (Reason: shortness of breath or wheezing) Qty: 90 0RF Discharge Orders: Discharge Order (Routine); Ordered 04/05/22 Ordered By: Haider Velasco Other Ambulatory Orders: DME: BIPAP (Order) Location: None Selected Ordered By: Haider Velasco DME: Oxygen (Order) Location: None Selected Ordered By: Haider Velasco Referrals: Reena López MD [Primary Care Provider] - 04/11/22 10:00 am Discharge Diet: Cardiac Discharge Activity: Resume usual activity and Increase activity as tolerated Patient Instructions: Furosemide (By mouth), Prednisone (By mouth), Amoxicillin/Clavulanate Potassium (By mouth), Levofloxacin (By mouth), Amiloride (By mouth), Cigarette Smoking and Your Health (GEN), COPD (Chronic Obstructive Pulmonary Disease) (DC), Opioid Safety, Quitting Smoking Activity Restrictions/Additional Instructions: Please follow-up with your primary care provider within next 1 week. Take Lasix 20 mg oral daily. You will be on antibiotics Levaquin and Augmentin for next 5 days. Take steroid taper as directed. Please use BiPAP at night at setting of 12/6 daily with tethered oxygen. Discharge Attestations Time Spent in Discharge Care*: greater than 30 min Specific Discharge Activities: educating patient, educating and/or supporting family/caregiver, discussing with case investigator/social workers/dc planners, documenting/other paperwork and evaluating patient/reviewing data Status at Discharge: Cognitive status at discharge: cognitively intact, Behavioral status at discharge: cooperative, Functional status at discharge: independent ambulation, Overall status at discharge: patient is back to baseline Quality Metrics Clinical Quality Measures [ No reported AMI, CVA or VTE this stay] Coding Level of Care Code Acute Chg FW DC note Diagnoses Acute on chronic respiratory failure with hypoxia and hypercapnia J96.21; J96.22 Acute exacerbation of chronic obstructive airways disease J44.1 COPD (chronic obstructive pulmonary disease) J44.9 COPD type: unspecified COPD HTN (hypertension) I10
--- NOTE | 2022-04-05 13:47 | PC.NURSE ---
patient verbalized understanding of discharge instructions, home medications, and follow up appointments. Directed patient to call the company about her bipap to set up a time for it to be delivered.
== END 2022-04-05 13:45 | disposition home or self-care (01) | DRG 190 ==
LOC: ER 04-01 01:26 → MEDSURG 04-01 01:39
PROVIDERS: Admitting Provider Internal Medicine; Emergency Provider Emergency Medicine; PCP Family Medicine; Visit Provider Student in an Organized Health Care Education/Training Program
DX: J44.1 Chronic obstructive pulmonary disease with (acute) exacerbation (principal); J96.21 Acute and chronic respiratory failure with hypoxia; J96.22 Acute and chronic respiratory failure with hypercapnia; F41.9 Anxiety disorder, unspecified; K21.9 Gastro-esophageal reflux disease without esophagitis; I10 Essential (primary) hypertension; Z99.81 Dependence on supplemental oxygen; Z88.5 Allergy status to narcotic agent; F17.210 Nicotine dependence, cigarettes, uncomplicated; I50.810 Right heart failure, unspecified; G47.33 Obstructive sleep apnea (adult) (pediatric); Z79.51 Long term (current) use of inhaled steroids
CPT/HCPCS: 36415; 36600; 71045; 71250; 80051; 80053; 80061; 81003; 82330; 82607; 82746; 82803; 82805; 83036; 83540; 83550; 83605; 83735; 83880; 84100; 84145; 84439; 84443; 84481; 84484; 85025; 85378; 86403; 87070; 87205; 87449; 87635; 87641; 87804; 93005; 94640; 94660; 94760; 94762; 96372; 96374; 96375; 99291; J0456; J0696; J1650; J1940; J2405; J2920; J2930; J3490; J7050; J7626

== ENCOUNTER 2022-09-04 14:24 | Outpatient (CLI) | payer MEDICAID, SELFPAY ==
--- NOTE | 2022-09-04 14:15 | CT_ITS ---
WS: [id number] LDCT LUNG CANCER SCREENING TECHNIQUE: Noncontrast CT of the chest with coronal and sagittal reformatted images. CLINICAL INFORMATION: lung screening COMPARISON: CT chest April 01, 2022 DLP: 52.09 mGy.cm DIvol: Mean CTDIvol: 0.90 (mGy) All CT scans at [facility] use at least one of these dose optimization techniques: automat ed exposure control; mA and/or kV adjustment per patient size (includes targeted exams where dose is matched to clinical indication); or iterative reconstruction. FINDINGS: Moderate chronic emphysematous changes. No acute pulmonary infiltrates. No focal pneumonia or pleural fluid. Ovoid subpleural nodule LEFT upper lobe anteriorly is unchanged measuring 7 mm. This appears unchanged since .Tiny slightly hazy subpleural opacity RIGHT lower lobe is unchanged measuri ng 5 mm. Mild aortic calcification. No mediastinal or hilar lymphadenopathy. No axillary lymphadenopathy. Adrenal glands are normal. Cholecystectomy clips. Hepatomegaly. Normal GE junction. Normal thoracic s pine. CT/CT lung screening [id number] IMPRESSION: LUNG-RADS: 2-Benign Appearance or Behavior FOLLOW UP: 12 Month: Continue annual screening with LDCT
== END 2022-09-04 14:25 | disposition home or self-care (01) ==
LOC: RAD 14:27
PROVIDERS: PCP Family Medicine; Visit Provider Internal Medicine Pulmonary Disease
DX: Z12.2 Encounter for screening for malignant neoplasm of respiratory organs (principal); F17.210 Nicotine dependence, cigarettes, uncomplicated
CPT/HCPCS: 71271

== ENCOUNTER 2022-09-19 11:57 | Outpatient (CLI) | payer MEDICAID, SELFPAY ==
[2022-09-19 12:30] VITALS: PULSE 99; RESP 18; O2SAT 95
[2022-09-19 12:35] VITALS: PULSE 103
== END 2022-09-19 11:58 | disposition home or self-care (01) ==
LOC: RT 12:01
PROVIDERS: PCP Family Medicine; Visit Provider Internal Medicine Pulmonary Disease
DX: J96.01 Acute respiratory failure with hypoxia (principal)
CPT/HCPCS: 94060; 94618; 94726; 94729; J7613

== ENCOUNTER → 2022-12-10 13:49 | Outpatient (BNVA) | payer MEDICAID, SELFPAY | PROVIDERS: PCP Family Medicine; Visit Provider Internal Medicine Pulmonary Disease | DX: J30.2 Other seasonal allergic rhinitis (principal) | CPT/HCPCS: 82785; 86003 ==

== ENCOUNTER 2023-03-23 22:18 | Inpatient (IN) | payer MEDICAID, SELFPAY ==
[2023-03-23 22:32] VITALS: BP 106/66; PULSE 109; RESP 28; TEMP 36.4; O2SAT 77
[2023-03-23 22:37] VITALS: BP 118/98; PULSE 105; RESP 25; TEMP 36.9; O2SAT 99
--- NOTE | 2023-03-23 22:38 | XRR_ITS ---
PROCEDURE INFORMATION: Exam: XR Chest Exam date and time: 03/23/2023 10:46 PM Age: 52 years old Clinical indication: Cardiovascular condition or disease; Other: Low o2 sat; Patient HX: [place]; SOB; Copd; Smoker x 40yrs; O2 dependant TECHNIQUE: Imaging protocol: Radiologic exam of the chest. Views: 1 view. COMPARISON: CT lung screening [id number] 09/04/2022 2:34 PM FINDINGS: Lungs: No consolidation. Pleural spaces: No large pleural effusion. No pneumothorax. Heart/Mediastinum: Unremarkable cardiomediastinal silhouette. Bones/joints: No acute abnormality. XR/XR chest 1V [id number] IMPRESSION: No consolidation.
[2023-03-23 23:11] LABS: Basophils % 0.4 %; Eosinophils # 0.2 10^3/uL (0.0-0.8); Eosinophils % 2.1 %; Hematocrit 43.3 % (36-47); Lymphocytes # 1.8 10^3/uL (0.8-4.8); Lymphocytes % 24.7 %; Mean Corpuscular HGB Conc 30.3 g/dL (30-55); Mean Corpuscular Hemoglobin 29.4 pg (27-33); Mean Corpuscular Volume 97.1 fl (85-98); Mean Platelet Volume 11.3 fL (7.4-10.4); Monocytes # 0.6 10^3/uL (0.2-0.9); Monocytes % 8.7 %; Neutrophils # 4.63 10^3/uL (1.8-7.7); Neutrophils % 63.8 %; Nucleated Red Blood Cells % 0 %; Platelet Count 160 10^3/cmm (157-399); Red Blood Count 4.46 10^6/uL (3.85-5.65); Red Cell Distribution Width 12.5 % (12.1-15.1); White Blood Count 7.25 10^3/uL (3.29-11.43)
[2023-03-23 23:17] LABS: Base Excess VBG 16.5 mmol/L (-3.0-3.0); Blood Gas Operator Identificat JB; Blood Gas Sample Site Not specified; HCO3 VBG 44.3 mmol/L (24-28); Oxygen Device NC; Venous Blood Gas Hematocrit 41.5 % (37-47); pH VBG 7.43 (7.32-7.42)
[2023-03-23 23:18] LABS: Blood Gas Sample Type Venous
[2023-03-23 23:21] LABS: PCO2 VBG 66.8 mmHg (41-51)
[2023-03-23 23:26] LABS: SARS Covid-2 Antigen negative (Negative)
[2023-03-23 23:27] LABS: Lactic Sepsis W/Reflex 1.6 mmol/L (0.5-2.2)
[2023-03-23 23:47] VITALS: PULSE 98; RESP 18; O2SAT 99
[2023-03-23] MEDS: ipratropium-albuterol 3 mL Neb INHALATION (23:47)
[2023-03-23 23:54] VITALS: PULSE 101; O2SAT 96
[2023-03-24] VITALS (55 sets, daily range): BP systolic 89–123; BP diastolic 61–94; PULSE 84–145; RESP 13–26; TEMP 36.5–37.1; O2SAT 82–98; BMI 27.0
[2023-03-24 00:04] LABS: Alanine Aminotransferase 8 U/L (0-33); Albumin Level 4.1 g/dL (3.5-5.2); Alkaline Phosphatase 87 U/L (35-105); Aspartate Amino Transferase 13 U/L (0-32); Blood Urea Nitrogen 5 mg/dL (6-20); Calcium 9.5 mg/dL (8.5-10.5); Chloride 91 mmol/L (98-107); Globulin 2.9 g/dL (1.3-4.6); Glomerular Filtration Rate 65.2 mL/min (90-130); Glucose 120 mg/dL (65-115); Osmolality Calculated 284 mOsm/kg (285-295); Sodium 138 mmol/L (136-145); Total Bilirubin 0.3 mg/dL (0.15-1.2); Troponin(5th) Baseline 11 ng/L (0-10)
[2023-03-24 00:07] LABS: Carbon Dioxide 45 mmol/L (22-29)
[2023-03-24 00:11] LABS: Procalcitonin 0.06 ng/mL (0-0.5)
[2023-03-24 00:12] LABS: NT Pro B Type Natriuretic Pept 102 pg/mL (0-125)
--- NOTE | 2023-03-24 00:18 | W.ED.SOB ---
Documented by User: GHAZALA Rothman 03/24/23 02:02 HPI - SOB/Dyspnea General: Chief Complaint: Shortness of Breath/Dyspnea Stated Complaint: sob, low O2, COPD, Fall Time Seen by Provider: 03/23/23 22:47 Source: patient and family Mode of arrival: ambulatory Limitations: no limitations History of Present Illness: HPI Narrative: Patient presents to the emergency department today accompanied by family for evaluation treatment of approximately 3 days worsening shortness of breath and chest tightness. Patient complains of tightness in her chest and some cough. She denies nasal congestion, sore throat, headache, or exposure to upper respiratory illness such as COVID. She has not had fevers. Patient does have a history of COPD and wears approximately 2-1/2 to 3 L oxygen by nasal cannula at her baseline. Patient has been hospitalized in the past for acute respiratory failure with the most recent being in November. Patient reports that recently she has been having significant drops in her at home O2 causing her to hallucinate. She has not increased her nasal cannula O2 at home however during this time. She states she has nebulizer treatments at home which she has tried but did not notice any significant improvement with them. Review of Systems General: Reports: 10 or more systems reviewed and unremarkable except in HPI and below PFSH ED PFSH: Medical History (Updated 03/24/23 @ 04:59 by Haider Velasco MD) Acute exacerbation of chronic obstructive airways disease Anxiety Chronic hypercapnic respiratory failure COPD (chronic obstructive pulmonary disease) Dependence on supplemental oxygen Fracture of fifth metatarsal bone of right foot Gastroesophageal reflux disease HTN (hypertension) Hypertension Right ankle pain Right foot pain Tenosynovitis of foot Surgical History History of tonsillectomy and adenoidectomy Hx of section Hx of cholecystectomy Hx of colonoscopy (~2012) Hx of hernia repair Hx of tubal ligation Family History Father Cancer lung Heart disease Mother Heart disease Social History Smoking and tobacco/nicotine status: current every day tobacco/nicotine user cigarettes Packs smoked per day: 1 Years cigarettes smoked: 45 Second hand smoke exposure: Yes Alcohol intake: former Former alcohol use details: sober x 20 yrs Substance/Drug Use: never Caregiver/support person: Yes Lives independently: Yes Household members: spouse and children Marital status: service: No Current occupational status: unemployed Current gender identity: Female Special lauryn needs: No Agree to transfusion: No Physical Exam Const: COMMON NORMALS: no acute distress, patient oriented x3 and alert OTHER: Patient is extremely pleasant, social. She is answering her own history. Patient is seated upright in the bed and is playing on her phone. Eye: COMMON NORMALS: Equal, round and reactive pupils present, EOMs intact bilaterally and conjunctivae normal CONJUNCTIVA: Yes conjunctivae normal PUPIL: Yes Equal, round and reactive pupils present Lymph: LYMPHATIC: no lymphadenopathy noted Chest: COMMONS NORMALS: normal inspection of the chest Resp: OTHER: Patient shows tachypnea and requires 15 L by nonrebreather to have O2 readings in the mid upper 90s. Breathing does seem labored but, no signs of severe distress preventing patient from speaking or moving around. Cardio: OTHER: Mild tachycardia : COMMON NORMALS: Yes no CVA tenderness BLADDER/KIDNEY EXAM: Yes no CVA tenderness Back/Pelvis: COMMON NORMALS: no CVA tenderness, thoracic and lumbar spine normal to inspection and thoraco-lumbar ROM normal Extremity: COMMON NORMALS: normal to inspection, full ROM and no pedal edema Neuro: COMMON NORMALS: patient oriented x3 SENSORIUM/ORIENTATION: Yes alert Psych: COMMON NORMALS: mental status grossly normal, Normal thought process present, cooperative, normal affect, speech normal and activity/motor behavior normal SPEECH: Yes normal speech THOUGHT PROCESS: Normal thought process present Skin: COMMON NORMALS: no rashes or lesions noted and turgor normal GENERAL SKIN EXAM: no rashes or lesions noted and turgor normal Course Vital Signs: Vital signs: Vital Signs Temperature 98.8 F 03/24/23 14:19 Pulse Rate 108 H 03/24/23 16:30 Respiratory Rate 17 03/24/23 16:30 Blood Pressure 95/64 03/24/23 16:30 Pulse Oximetry 82 L 03/24/23 16:30 Oxygen Delivery Me thod BiPAP 03/24/23 15:30 Oxygen Flow Rate 4 03/24/23 11:20 Fraction of Inspir ed Oxygen 40 03/24/23 15:33 MDM - SOB/Dyspnea Medical Decision Making Patient presented to the emergency department tonight for complaints of 3 days of worsening chest tightness and difficulty breathing. Patient reported low oxygen readings at home but did not increase her baseline nasal cannula oxygen. Upon arrival, patient was found to be in the upper 70%'s O2 and patient was put on a nonrebreather mask. Patient's oxygen went back up into the mid 90s and patient stated from triage she felt noticeably improved just from that. Still, patient has a history of respiratory failure and further evaluation was started. Chest x-ray showed no signs of consolidation. Patient does have noticeable abnormalities on her blood gases. She received IV Solu-Medrol and a breathing treatment upon her arrival to the room which she did not notice any immediate improvement at that time. We were able to wean the patient down to approximately 5 L by nasal cannula as we continue to monitor her incoming lab work. At this time, transfer of care to Dr. Hernandez for continued monitoring and decisions regarding treatment plan. Differential Diagnosis Likely acute exacerbation of chronic obstructive airways disease and pulmonary embolism; Unlikely congestive heart failure or community acquired pneumonia Lab Data 03/23/23 23:05 03/23/23 23:30 Labs/Radiology: Radiology Impressions Chest X-Ray 03/23/23 22:38 IMPRESSION: No consolidation. Chest CT 03/24/23 04:42 IMPRESSION: No cardiopulmonary disease Laboratory Results WBC 7.25 10^3/uL (3.29-11.43) 03/23/23 23:05 RBC 4.46 10^6/uL (3.85-5.65) 03/23/23 23:05 Hgb 13.10 g/dL (11.27-16.99) 03/23/23 23:05 Hct 43.3 % (36-47) 03/23/23 23:05 MCV 97.1 fl (85-98) 03/23/23 23:05 MCH 29.4 pg (27-33) 03/23/23 23:05 MCHC 30.3 g/dL (30-55) 03/23/23 23:05 RDW 12.5 % (12.1-15.1) 03/23/23 23:05 Plt Count 160 10^3/cmm (157-399) 03/23/23 23:05 MPV 11.3 fL (7.4-10.4) H 03/23/23 23:05 Neut % (Auto) 63.8 % 03/23/23 23:05 Lymph % (Auto) 24.7 % 03/23/23 23:05 Trigg % (Auto) 8.7 % 03/23/23 23:05 Eos % (Auto) 2.1 % 03/23/23 23:05 Baso % (Auto) 0.4 % 03/23/23 23:05 Neut # (Auto) 4.63 10^3/uL (1.8-7.7) 03/23/23 23:05 Lymph # (Auto) 1.8 10^3/uL (0.8-4.8) 03/23/23 23:05 Trigg # (Auto) 0.6 10^3/uL (0.2-0.9) 03/23/23 23:05 Eos # (Auto) 0.2 10^3/uL (0.0-0.8) 03/23/23 23:05 Baso # (Auto) 0.0 10^3/uL (0.0-0.1) 03/23/23 23:05 Nucleated RBC % (auto) 0 % 03/23/23 23:05 Nucleated RBCs # 0.0 /100WBC 03/23/23 23:05 Specimen Type Arterial 03/24/23 03:30 Sample Site Brachial, right 03/24/23 03:30 ABG pH 7.35 (7.35-7.45) 03/24/23 03:30 ABG pCO2 81.1 mmHg (35-45) H* 03/24/23 03:30 ABG pO2 67.4 mmHg (80.0-100.0) L 03/24/23 03:30 ABG HCO3 44.2 mmol/L (22-26) H 03/24/23 03:30 ABG Base Excess 14.4 mmol/L (-2.0-2.0) H 03/24/23 03:30 Braxton Test N/a 03/24/23 03:30 VBG pH 7.43 (7.32-7.42) H 03/23/23 23:05 VBG pCO2 66.8 mmHg (41-51) H* 03/23/23 23:05 VBG pO2 186.0 mmHg (25-40) H 03/23/23 23:05 VBG HCO3 44.3 mmol/L (24-28) H 03/23/23 23:05 VBG Base Excess 16.5 mmol/L (-3.0-3.0) H 03/23/23 23:05 VBG Hematocrit 41.5 % (37-47) 03/23/23 23:05 Hematocrit 41.9 % (37-47) 03/24/23 03:30 O2 Delivery Device Nc 03/24/23 03:30 O2 Liters/Min 6.0 % 03/24/23 03:30 Visual Education Director ID [email or web address] 03/24/23 03:30 Sodium 138 mmol/L (136-145) 03/23/23 23:30 Potassium 4.0 mmol/L (3.5-5.1) 03/23/23 23:30 Chloride 91 mmol/L (98-107) L 03/23/23 23:30 Carbon Dioxide 45 mmol/L (22-29) H* 03/23/23 23:30 Anion Gap 6.0 (5-19) 03/23/23 23:30 BUN 5 mg/dL (6-20) L 03/23/23 23:30 Creatinine 0.9 mg/dL (0.5-0.9) 03/23/23 23:30 GFR Calculation 65.2 mL/min (90-130) L 03/23/23 23:30 Glucose 120 mg/dL (65-115) H 03/23/23 23:30 Calculated Osmolality 284 mOsm/kg (285-295) L 03/23/23 23:30 Lactic Acid 1.6 mmol/L (0.5-2.2) 03/23/23 23:05 Calcium 9.5 mg/dL (8.5-10.5) 03/23/23 23:30 Iron 47 ug/dL (37-145) 03/24/23 01:01 TIBC 250 mcg/dl 03/24/23 01:01 % Saturation 18.8 % (20-50) L 03/24/23 01:01 Unsat Iron Binding 203 ug/dL (112-347) 03/24/23 01:01 Total Bilirubin 0.3 mg/dL (0.15-1.2) 03/23/23 23:30 AST 13 U/L (0-32) 03/23/23 23:30 ALT 8 U/L (0-33) 03/23/23 23:30 Alkaline Phosphatase 87 U/L (35-105) 03/23/23 23:30 Troponin T Baseline 11 ng/L (0-10) H 03/23/23 23:30 Troponin T 120 Minute 9.91 ng/L (0-10) 03/24/23 01:01 Delta Troponin T -1.09 ABS# (0-10) L 03/24/23 01:01 NT-Pro-B Natriuret Pep 102 pg/mL (0-125) 03/23/23 23:30 Total Protein 7.0 g/dL (6.6-8.7) 03/23/23 23:30 Albumin 4.1 g/dL (3.5-5.2) 03/23/23 23:30 Globulin 2.9 g/dL (1.3-4.6) 03/23/23 23:30 Vitamin B12 315 pg/mL (232-1245) 03/24/23 01:01 Procalcitonin 0.07 ng/mL (0-0.5) 03/24/23 01:01 TSH 1.40 uIU/mL (0.27-4.20) 03/24/23 01:01 Urine Color Yellow (Yellow) 03/24/23 00:39 Urine Appearance Clear (CLEAR) 03/24/23 00:39 Urine pH 5 (5-7) 03/24/23 00:39 Ur Specific Hulbert 1.010 (1.005-1.030) 03/24/23 00:39 Urine Protein Neg (Negative) 03/24/23 00:39 Urine Glucose (UA) Norm (Normal) 03/24/23 00:39 Urine Ketones 1+ (Negative) H 03/24/23 00:39 Urine Blood Neg (Negative) 03/24/23 00:39 Urine Nitrate Negative (Negative) 03/24/23 00:39 Urine Bilirubin Neg (Negative) 03/24/23 00:39 Urine Urobilinogen Neg mg/dL (Negative) 03/24/23 00:39 Ur Leukocyte Esterase Negative (Negative) 03/24/23 00:39 SARS-CoV-2 Ag (Rapid) negative (Negative) 03/23/23 23:06 All radiology interpretation(s) finalized by discharge Discharge Plan Discharge Patient Disposition: Admitted As Inpatient Admit Provider: Haider Velasco Clinical Impression: Acute exacerbation of chronic obstructive airways disease, Acute on chronic respiratory failure with hypoxia and hypercapnia Condition: Fair Coding Level of Care Code ED Stenocaptioner for Chg Fwd Documented by User: Roni Hernandez DO 03/24/23 17:07 HPI - SOB/Dyspnea General: Chief Complaint: Shortness of Breath/Dyspnea Stated Complaint: sob, low O2, COPD, Fall Time Seen by Provider: 03/23/23 22:47 PFSH ED PFSH: Medical History (Updated 03/24/23 @ 04:59 by Haider Velasco MD) Acute exacerbation of chronic obstructive airways disease Anxiety Chronic hypercapnic respiratory failure COPD (chronic obstructive pulmonary disease) Dependence on supplemental oxygen Fracture of fifth metatarsal bone of right foot Gastroesophageal reflux disease HTN (hypertension) Hypertension Right ankle pain Right foot pain Tenosynovitis of foot Surgical History History of tonsillectomy and adenoidectomy Hx of section Hx of cholecystectomy Hx of colonoscopy (~2012) Hx of hernia repair Hx of tubal ligation Family History Father Cancer lung Heart disease Mother Heart disease Social History Smoking and tobacco/nicotine status: current every day tobacco/nicotine user cigarettes Packs smoked per day: 1 Years cigarettes smoked: 45 Second hand smoke exposure: Yes Alcohol intake: former Former alcohol use details: sober x 20 yrs Substance/Drug Use: never Caregiver/support person: Yes Lives independently: Yes Household members: spouse and children Marital status: service: No Current occupational status: unemployed Current gender identity: Female Special lauryn needs: No Agree to transfusion: No Course Vital Signs: Vital signs: Vital Signs Temperature 98.8 F 03/24/23 14:19 Pulse Rate 108 H 03/24/23 16:30 Respiratory Rate 17 03/24/23 16:30 Blood Pressure 95/64 03/24/23 16:30 Pulse Oximetry 82 L 03/24/23 16:30 Oxygen Delivery Me thod BiPAP 03/24/23 15:30 Oxygen Flow Rate 4 03/24/23 11:20 Fraction of Inspir ed Oxygen 40 03/24/23 15:33 MDM - SOB/Dyspnea Medical Decision Making Patient presented to the emergency department [facility] for complaints of 3 days of worsening chest tightness and difficulty breathing. Patient reported low oxygen readings at home but did not increase her baseline nasal cannula oxygen. Upon arrival, patient was found to be in the upper 70%'s O2 and patient was put on a nonrebreather mask. Patient's oxygen went back up into the mid 90s and patient stated from triage she felt noticeably improved just from that. Still, patient has a history of respiratory failure and further evaluation was started. Chest x-ray showed no signs of consolidation. Patient does have noticeable abnormalities on her blood gases. She received IV Solu-Medrol and a breathing treatment upon her arrival to the room which she did not notice any immediate improvement at that time. We were able to wean the patient down to approximately 5 L by nasal cannula as we continue to monitor her incoming lab work. At this time, transfer of care to Dr. Hernandez for continued monitoring and decisions regarding treatment plan. This patient was originally seen by Mrs. Troy PA-C. I agree with her history, evaluation, and treatment. On my repeat examination, with oxygenation, this patient appears more lethargic. She arouses and awakens to voice, but it falls right back asleep. Repeat blood gas testing shows a decreased pH of 7.35 with an increase in PCO 2 into the 80s. She is placed on bipap ventilation. She is improving at this point. She'll be admitted for acute exacerbation of COPD with respiratory failure both with hypoxia and hypercapnia. Hostpitalist is aware and will see the patient. Lab Data 03/23/23 23:05 03/23/23 23:30 Labs/Radiology: Radiology Impressions Chest X-Ray 03/23/23 22:38 IMPRESSION: No consolidation. Chest CT 03/24/23 04:42 IMPRESSION: No cardiopulmonary disease Laboratory Results WBC 7.25 10^3/uL (3.29-11.43) 03/23/23 23:05 RBC 4.46 10^6/uL (3.85-5.65) 03/23/23 23:05 Hgb 13.10 g/dL (11.27-16.99) 03/23/23 23:05 Hct 43.3 % (36-47) 03/23/23 23:05 MCV 97.1 fl (85-98) 03/23/23 23:05 MCH 29.4 pg (27-33) 03/23/23 23:05 MCHC 30.3 g/dL (30-55) 03/23/23 23:05 RDW 12.5 % (12.1-15.1) 03/23/23 23:05 Plt Count 160 10^3/cmm (157-399) 03/23/23 23:05 MPV 11.3 fL (7.4-10.4) H 03/23/23 23:05 Neut % (Auto) 63.8 % 03/23/23 23:05 Lymph % (Auto) 24.7 % 03/23/23 23:05 Trigg % (Auto) 8.7 % 03/23/23 23:05 Eos % (Auto) 2.1 % 03/23/23 23:05 Baso % (Auto) 0.4 % 03/23/23 23:05 Neut # (Auto) 4.63 10^3/uL (1.8-7.7) 03/23/23 23:05 Lymph # (Auto) 1.8 10^3/uL (0.8-4.8) 03/23/23 23:05 Trigg # (Auto) 0.6 10^3/uL (0.2-0.9) 03/23/23 23:05 Eos # (Auto) 0.2 10^3/uL (0.0-0.8) 03/23/23 23:05 Baso # (Auto) 0.0 10^3/uL (0.0-0.1) 03/23/23 23:05 Nucleated RBC % (auto) 0 % 03/23/23 23:05 Nucleated RBCs # 0.0 /100WBC 03/23/23 23:05 Specimen Type Arterial 03/24/23 03:30 Sample Site Brachial, right 03/24/23 03:30 ABG pH 7.35 (7.35-7.45) 03/24/23 03:30 ABG pCO2 81.1 mmHg (35-45) H* 03/24/23 03:30 ABG pO2 67.4 mmHg (80.0-100.0) L 03/24/23 03:30 ABG HCO3 44.2 mmol/L (22-26) H 03/24/23 03:30 ABG Base Excess 14.4 mmol/L (-2.0-2.0) H 03/24/23 03:30 Braxton Test N/a 03/24/23 03:30 VBG pH 7.43 (7.32-7.42) H 03/23/23 23:05 VBG pCO2 66.8 mmHg (41-51) H* 03/23/23 23:05 VBG pO2 186.0 mmHg (25-40) H 03/23/23 23:05 VBG HCO3 44.3 mmol/L (24-28) H 03/23/23 23:05 VBG Base Excess 16.5 mmol/L (-3.0-3.0) H 03/23/23 23:05 VBG Hematocrit 41.5 % (37-47) 03/23/23 23:05 Hematocrit 41.9 % (37-47) 03/24/23 03:30 O2 Delivery Device Nc 03/24/23 03:30 O2 Liters/Min 6.0 % 03/24/23 03:30 Visual Education Director ID [email or web address] 03/24/23 03:30 Sodium 138 mmol/L (136-145) 03/23/23 23:30 Potassium 4.0 mmol/L (3.5-5.1) 03/23/23 23:30 Chloride 91 mmol/L (98-107) L 03/23/23 23:30 Carbon Dioxide 45 mmol/L (22-29) H* 03/23/23 23:30 Anion Gap 6.0 (5-19) 03/23/23 23:30 BUN 5 mg/dL (6-20) L 03/23/23 23:30 Creatinine 0.9 mg/dL (0.5-0.9) 03/23/23 23:30 GFR Calculation 65.2 mL/min (90-130) L 03/23/23 23:30 Glucose 120 mg/dL (65-115) H 03/23/23 23:30 Calculated Osmolality 284 mOsm/kg (285-295) L 03/23/23 23:30 Lactic Acid 1.6 mmol/L (0.5-2.2) 03/23/23 23:05 Calcium 9.5 mg/dL (8.5-10.5) 03/23/23 23:30 Iron 47 ug/dL (37-145) 03/24/23 01:01 TIBC 250 mcg/dl 03/24/23 01:01 % Saturation 18.8 % (20-50) L 03/24/23 01:01 Unsat Iron Binding 203 ug/dL (112-347) 03/24/23 01:01 Total Bilirubin 0.3 mg/dL (0.15-1.2) 03/23/23 23:30 AST 13 U/L (0-32) 03/23/23 23:30 ALT 8 U/L (0-33) 03/23/23 23:30 Alkaline Phosphatase 87 U/L (35-105) 03/23/23 23:30 Troponin T Baseline 11 ng/L (0-10) H 03/23/23 23:30 Troponin T 120 Minute 9.91 ng/L (0-10) 03/24/23 01:01 Delta Troponin T -1.09 ABS# (0-10) L 03/24/23 01:01 NT-Pro-B Natriuret Pep 102 pg/mL (0-125) 03/23/23 23:30 Total Protein 7.0 g/dL (6.6-8.7) 03/23/23 23:30 Albumin 4.1 g/dL (3.5-5.2) 03/23/23 23:30 Globulin 2.9 g/dL (1.3-4.6) 03/23/23 23:30 Vitamin B12 315 pg/mL (232-1245) 03/24/23 01:01 Procalcitonin 0.07 ng/mL (0-0.5) 03/24/23 01:01 TSH 1.40 uIU/mL (0.27-4.20) 03/24/23 01:01 Urine Color Yellow (Yellow) 03/24/23 00:39 Urine Appearance Clear (CLEAR) 03/24/23 00:39 Urine pH 5 (5-7) 03/24/23 00:39 Ur Specific Hulbert 1.010 (1.005-1.030) 03/24/23 00:39 Urine Protein Neg (Negative) 03/24/23 00:39 Urine Glucose (UA) Norm (Normal) 03/24/23 00:39 Urine Ketones 1+ (Negative) H 03/24/23 00:39 Urine Blood Neg (Negative) 03/24/23 00:39 Urine Nitrate Negative (Negative) 03/24/23 00:39 Urine Bilirubin Neg (Negative) 03/24/23 00:39 Urine Urobilinogen Neg mg/dL (Negative) 03/24/23 00:39 Ur Leukocyte Esterase Negative (Negative) 03/24/23 00:39 SARS-CoV-2 Ag (Rapid) negative (Negative) 03/23/23 23:06 Discharge Plan Discharge Patient Disposition: Admitted As Inpatient Admit Provider: Haider Velasco Clinical Impression: Acute exacerbation of chronic obstructive airways disease, Acute on chronic respiratory failure with hypoxia and hypercapnia Condition: Fair Coding Level of Care Code ED Stenocaptioner for Vishal Badillo
[2023-03-24] MEDS: methylPREDNISolone sod succ 125 MG in water for injection-sterile 2 ML 24 MG IVP (00:31)
[2023-03-24 00:49] LABS: Add Urine Microscopic? NO; Charge for UA Resulting for Rev
[2023-03-24 00:52] LABS: Bilirubin Urine Neg (Negative); Blood Urine Neg (Negative); Glucose Urine UA Norm (Normal); Ketones Urine 1+ (Negative); Leukocyte Esterase Urine Negative (Negative); Nitrate Urine Negative (Negative); Protein Urine Neg (Negative); Urine Appearance Clear (CLEAR); Urine Color Yellow (Yellow); Urobilinogen Urine Neg (Negative); pH Urine 5 (5-7)
[2023-03-24 01:30] LABS: Troponin 5 2HR 9.91 ng/L (0-10); Troponin 5 2HR Delta -1.09 ABS# (0-10)
--- NOTE | 2023-03-24 01:46 | ECG_ITS ---
[facility] Test Date: 2023-03-24 Pat Name: Estelle Pascual Department: Room: Gender: Female Composite Worker: : 1970 Requested By: Roni Nunes Order Number: [id number] Tawanda MD: Taya Villalta M.D. Measurements Intervals [place] Rate: 88 P: 73 SD: 144 QRS: 76 QRSD: 77 T: 65 QT: 281 QTc: 341 Interpretive Statements SINUS RHYTHM NONSPECIFIC T-WAVE ABNORMALITY Compared to ECG 04/01/2022 05:06:41 T-wave abnormality now present Electronically Signed On 03-24-2023 22:18:55 PANTOGRAPHER by Taya Villalta M.D. [email or web address]
[2023-03-24] MEDS: ipratropium-albuterol 3 mL Neb INHALATION ×6 (03:30→23:05)
[2023-03-24 03:42] LABS: ABG PH Result 7.35 (7.35-7.45); Arterial Blood Gas Hematocrit 41.9 % (37-47); Base Excess ABG 14.4 mmol/L (-2.0-2.0); Blood Gas Sample Site Brachial, right; Blood Gas Sample Type Arterial; HCO3 ABG 44.2 mmol/L (22-26); Oxygen Device NC; PO2 ABG 67.4 mmHg (80.0-100.0)
[2023-03-24 03:45] LABS: ABG PCO2 81.1 mmHg (35-45)
--- NOTE | 2023-03-24 04:42 | CTR_ITS ---
PROCEDURE INFORMATION: Exam: CT Chest Without Contrast; Diagnostic Exam date and time: 03/24/2023 5:48 AM Age: 52 years old Clinical indication: Shortness of breath; Patient HX: HX of copd, exacerbation; Additional info: Resp failure TECHNIQUE: Imaging protocol: Diagnostic computed tomography of the chest without contrast. Radiation optimization: All CT scans at this facility use at least one of these dose optimization techniques: automated exposure control; mA and/or kV adjustment per patient size (includes targeted exams where dose is matched to clinical indication); or iterative reconstruction. REPORTING DATA: Count of CT and Cardiac NM exams in prior 12 months: This patient has received 2 known CTs and 0 known cardiac nuclear medicine studies in the 12 months prior to the current study. COMPARISON: CT lung screening [id number] 09/04/2022 2:34 PM RADIATION DOSE METRICS: Total DLP (mGy-cm): 250.94 FINDINGS: Lungs: Stable 7 mm left anterior lung nodule. Pleural spaces: Unremarkable. No pneumothorax. No pleural effusion. Heart: Unremarkable. No cardiomegaly. No pericardial effusion. Lymph nodes: Unremarkable. No enlarged lymph nodes. Vasculature: Unremarkable. No aortic aneurysm. No coronary artery calcifications. Gallbladder and bile ducts: Cholecystectomy. Bones/joints: Unremarkable. No acute fracture. Soft tissues: Unremarkable. CT/CT chest wo con [id number] IMPRESSION: No cardiopulmonary disease
--- NOTE | 2023-03-24 04:56 | P.HP_ITS ---
Providers/Chief Complaint Admitting Physician: Haider Velasco MD Primary Care Provider: Reena López MD Chief Complaint: sob, low O2, COPD, Fall History of Present Illness Estelle Pascual is a 52 year old female with past medical history of anxiety, COPD on 2 to 3 L of oxygen supplementation, hypertension presents to the ER with ongoing cough, difficulty in breathing and chest tightness getting worse over last couple of weeks acutely over the last 1 week. Symptoms associated with worsening of mental status with hallucinations and confusion. Denies any worsening of cough, nausea vomiting, runny nose, subjective feeling of fever. In the ER on presentation patient was found to be slightly confused with saturation down to mid 70s so patient was placed on 7 days of oxygen supplementation. She was given IV Solu-Medrol and nebulization treatment after which she was placed on BiPAP for hypercapnia. When seen first patient was somnolent, BiPAP settings were further changed and ABG was drawn which showed PCO2 at her baseline of 80 and gradually patient's mentation improved. When seen again in the ICU patient was a lot more awake and alert on BiPAP, AO x3 and her at her baseline. She was transitioned to 3 L of oxygen supplementation. Patient states she thinks there is an issue with her BiPAP which her daughter has been negative checked today. Review of Systems General: Reports: 10 or more systems reviewed and unremarkable except in HPI and below Const: Denies: fever(s), chills, body aches, change in appetite, change in weight, malaise, night sweats, diaphoresis, change in sleep pattern, daytime sleepiness or snoring Eyes: Denies: change in vision, blurry vision, photophobia, eye discomfort or eye discharge ENMT: Denies: throat pain, enlarged tonsils, hoarseness, mouth pain, oral sores, dry mouth, tinnitus, nasal congestion or post nasal drip Card: Denies: chest pain, palpitations, irregular heart rhythm, edema, swelling of feet/ankles, lightheadedness, syncope, pre-syncope, dyspnea on exertion, orthopnea, leg pain with exertion or acrocyanosis Resp: Denies: dyspnea, productive cough, non-productive cough, wheezing, stridor, pain on inspiration, change in phlegm color, hemoptysis or chest congestion GI: Denies: abdominal pain, nausea, vomiting, hematemesis, coffee ground emesis, dysphagia, heartburn, diarrhea, constipation, bloating, GI cramping, change in bowel habits, pain on defecation, hematochezia or melena : Denies: flank pain, dysuria, urinary frequency, urinary urgency, urinary hesitancy, nocturia or hematuria Musc: Denies: neck pain, back pain, extremity pain, joint pain, joint swelling, joint redness, joint stiffness or limited range of motion Neuro: Denies: headache(s), numbness in extremities, weakness in extremities, sensory changes, lack of coordination, difficulty walking, frequent falls, dizziness, vertigo, confusion, Slurred speech present, difficulty communicating thoughts or seizure-like activity Psych: Denies: anxiety, depression, mood swings, panic attacks, hopelessness or irritability Endo: Denies: polyuria, polydipsia, tired all the time, cold intolerance, excessive sweating, flushing or heat intolerance Tanner/Lymph: Denies: easy bruising or easy bleeding All/Imm: Denies: tongue swelling, facial swelling or acute wheezing Medications/Allergies Home Medications Medication Instructions Recorded Confirmed Last Taken Type oxygen and concentrator #1 ea 03/03/20 12/05/22 Unknown Rx ferrous gluconate 324 mg (37.5 mg 324 mg PO BIDWM #60 tabs 05/14/22 12/05/22 U nknown Rx iron) tablet bupropion HCl 150 mg 24 hr tablet, See Rx Instructions .Route 10/19/22 12/05/22 Unknown Rx extended release .COMPLEX #30 tabs Inspire Portable oxygen #1 ea 10/30/22 12/05/22 Unknown Rx concentrator Portable oxygen concentrator #1 ea 10/30/22 12/05/22 Unknown Rx albuterol sulfate 2.5 mg/3 mL 2.5 mg (3 mL) inhalation QID PRN 10/30/22 12/05/22 Unknown Rx (0.083 %) solution for nebulization shortness of breath or wheezing #180 mL ipratropium 0.5 mg-albuterol 3 mg 3 ml inhalation Q8H PRN shortness 10/30/22 12/05/22 Unknown Rx (2.5 mg base)/3 mL nebulization of breath or wheezing #90 mL soln formoterol fumarate 20 mcg/2 mL 2 ml inhalation BID COPD #120 mL 12/10/22 Unknown Rx solution for nebulization (Perforomist) fluticasone propionate 100 1 inh inhalation BID #60 ea 12/25/22 Unknown Rx mcg/actuation blister powder for inhalation (Flovent Diskus) tiotropium bromide 18 mcg capsule 1 cap inhalation DAILY #60 12/25/22 Unknown Rx with inhalation device (Spiriva inhalations with HandiHaler) albuterol sulfate 90 mcg/actuation See Rx Instructions .Route 01/09/23 Unknown Rx aerosol inhaler (Ventolin HFA) .COMPLEX #18 grams Allergies Allergy/AdvReac Type Severity Reaction Status Date / Time hydrocodone Allergy ADR-Vomitin Verified 03/23/23 22:37 g tramadol Allergy ADR-Itching Verified 03/23/23 22:37 PFSH Acute PFSH: Medical History (Updated 03/24/23 @ 04:59 by Haider Velasco MD) Acute exacerbation of chronic obstructive airways disease Anxiety Chronic hypercapnic respiratory failure COPD (chronic obstructive pulmonary disease) Dependence on supplemental oxygen Fracture of fifth metatarsal bone of right foot Gastroesophageal reflux disease HTN (hypertension) Hypertension Right ankle pain Right foot pain Tenosynovitis of foot Surgical History History of tonsillectomy and adenoidectomy Hx of section Hx of cholecystectomy Hx of colonoscopy (~2012) Hx of hernia repair Hx of tubal ligation Family History Father Cancer lung Heart disease Mother Heart disease Social History Smoking and tobacco/nicotine status: current every day tobacco/nicotine user cigarettes Packs smoked per day: 1 Years cigarettes smoked: 45 Second hand smoke exposure: Yes Alcohol intake: former Former alcohol use details: sober x 20 yrs Substance/Drug Use: never Caregiver/support person: Yes Lives independently: Yes Household members: spouse and children Marital status: service: No Current occupational status: unemployed Current gender identity: Female Special lauryn needs: No Agree to transfusion: No Vitals/I&O/Wt Last Vital Signs Temp 98.4 F 03/23/23 22:37 Pulse 98 03/24/23 04:32 Resp 19 H 03/24/23 04:32 BP 106/74 03/24/23 04:32 Pulse Ox 90 03/24/23 04:32 O2 Del Method Nasal Cannula 03/24/23 03:30 O2 Flow Rate 6 03/24/23 03:30 FiO2 50 03/24/23 04:30 03/23/23 03/23/23 03/24/23 14:59 22:59 06:59 Intake Total / 2 Balance Weight last 48 hrs Weight 61.235 kg Physical Exam Narrative: General: No acute distress, AO x3, BiPAP ventilation changed to nasal cannula, HEENT: PERRLA, pupils bilaterally equal and reactive Chest: Bilateral bronchial breath sounds all over lung menjivar with decreased and diffuse air entry with rhonchi CVS: S1-S2 regular, no murmurs, no tachycardia, no gallops, no rubs Abdomen: Soft, nontender, no organomegaly, bowel sounds present, morbidly obese Neuro: No focal deficits, no facial deformity, AO x3, power 5/5 in all limbs Data 03/23/23 23:05 03/23/23 23:30 A&P Assessment and plan (1) Acute on chronic respiratory failure with hypoxia and hypercapnia: Most likely in setting of COPD exacerbation. Pneumonia less likely so far as per the history. Patient seems to be at her baseline CO2 of around 80s currently. pH compensated. Check sputum culture, MRSA swab, respiratory viral panel, urine Legionella, bacterial antigen. Pneumonia less likely but as patient is critically sick for now start on IV Levaquin [address] stat to rule out any consolidation. DuoNebs every 4 hours, Pulmicort twice daily. Change BiPAP settings to be changed to 14/8 for now. Repeat ABG in few hours. Solu-Medrol 60 mg every 6 hourly. (2) COPD (chronic obstructive pulmonary disease): Qualifiers: COPD type: unspecified COPD Qualified Code(s): J44.9 - Chronic obstructive pulmonary disease, unspecified (3) Anxiety: Continue home dose of bupropion. Plan Full code NPO. Protonix for PUD prophylaxis Lovenox for DVT prophylaxis. Admit to ICU. Attestations Medical Necessity Statement*: Admission for more than 2 midnights for management of acute on chronic hypoxic and hypercapnic respiratory failure Diagnoses Acute on chronic respiratory failure with hypoxia and hypercapnia J96.21; J96.22 COPD (chronic obstructive pulmonary disease) J44.9 COPD type: unspecified COPD Anxiety F41.9
--- NOTE | 2023-03-24 05:39 | ECG_ITS ---
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 Measurements Intervals [place] Rate: 92 P: 65 NH: 144 QRS: 84 QRSD: 81 T: 69 QT: 277 QTc: 343 Interpretive Statements SINUS RHYTHM NONSPECIFIC T-WAVE ABNORMALITY Compared to ECG 03/24/2023 01:46:41 No significant changes Electronically Signed On 03-24-2023 22:19:30 ENVIRONMENTAL SAMPLING TECHNICIAN by Taya Villalta M.D. [id number]
[2023-03-24 05:59] LABS: Vitamin B12 315 pg/mL (232-1245)
[2023-03-24 06:26] LABS: Iron 47 ug/dL (37-145); Percent Saturation 18.8 % (20-50); Total Iron Binding Capacity 250 mcg/dl; Unsaturated Iron Binding 203 ug/dL (112-347)
[2023-03-24 06:33] LABS: Procalcitonin 0.07 ng/mL (0-0.5)
[2023-03-24] MEDS: methylPREDNISolone sod succ 40 mg/mL INJ IVP ×3 (06:50→19:41)
[2023-03-24] MEDS: pantoprazole 40 mg SDV IVP (06:50)
[2023-03-24] MEDS: levofloxacin-dextrose 5 % 750 MG/150 ML PREMIX 100 MG IV (06:50)
[2023-03-24 07:09] LABS: Troponin 5 6HR Delta -2.9 ng/L (0-12)
--- NOTE | 2023-03-24 07:42 | PC.NURSE ---
Dr. Mcrae wanted the Bipap off the patient and to be put on 3L nasal cannula.
[2023-03-24] MEDS: budesonide 0.5 mg/2 mL Neb INHALATION ×2 (08:23→20:02)
--- NOTE | 2023-03-24 09:12 | PC.NURSE ---
Pt states Lovenox was administered in [facility] this morning by Ashu. Pyxis shows Lovenox was pulled by Ashu this am.
[2023-03-24 10:03] LABS: ABG PCO2 57.8 mmHg (35-45); ABG PH Result 7.45 (7.35-7.45); Alveolar-Arterial Oxygen Gradi 4.1 mmHg (5-10); Arterial Blood Gas Hematocrit 42.3 % (37-47); Base Excess ABG 13.7 mmol/L (-2.0-2.0); Blood Gas Allen Test Pos; Blood Gas Operator Identificat CAK; Blood Gas Sample Site Radial, left; Blood Gas Sample Type Arterial; HCO3 ABG 40.3 mmol/L (22-26); HGB O2 Sat 84.7 % (95-100); Ionized Calcium Level - ABG 1.1 mmol/L (1.1-1.4); Methemoglobin 0.3 % (0.4-1.5); Oxygen Device NC; Oxygen Saturation ABG 86.7; PO2 ABG 48.4 mmHg (80.0-100.0); Potassium Level - ABG 4.2 mmol/L (3.5-5.0); Total Hemoglobin 13.8 g/dL (12-16)
[2023-03-24 10:35] LABS: Add Urine Microscopic? NO; Charge for UA Resulting for Rev
[2023-03-24 10:41] LABS: Glucose Urine UA Norm (Normal); Protein Urine Neg (Negative); Specific Gravity, Urine 1.005 (1.005-1.030); Urine Appearance Clear (CLEAR); Urine Color Yellow (Yellow); pH Urine 7 (5-7)
[2023-03-24 10:42] LABS: Bilirubin Urine Neg (Negative); Blood Urine Neg (Negative); Ketones Urine 1+ (Negative); Leukocyte Esterase Urine Negative (Negative); Nitrate Urine Negative (Negative); Urobilinogen Urine Norm (Negative)
--- NOTE | 2023-03-24 11:35 | PM.MISC ---
Miscellaneous Note Note: Patient stating that she has not used BiPAP for last 3 to 4 days she that she is an active smoker She was at 3 L during the daytime I have asked RT to give her a break from BiPAP let her eat Plan to discharge her back home tomorrow Patient was counseled on smoking cessation pH is compensated She does have chronic hypoxic hypercapnic respite failure She has BiPAP at home as well as that she uses every night she is full code
[2023-03-24 12:45] LABS: D Dimer 0.49 ug/mLFEU (0-0.59)
[2023-03-24] MEDS: acetaminophen 325 mg Tablet 650 MG PO (15:38)
[2023-03-25] VITALS (17 sets, daily range): BP systolic 94–113; BP diastolic 47–73; PULSE 87–112; RESP 14–21; TEMP 36.6–37.2; O2SAT 85–91
[2023-03-25] MEDS: methylPREDNISolone sod succ 40 mg/mL INJ IVP ×3 (01:06→13:27)
[2023-03-25] MEDS: ipratropium-albuterol 3 mL Neb INHALATION ×3 (03:18→11:40)
[2023-03-25 04:42] LABS: ABG PCO2 56.1 mmHg (35-45); ABG PH Result 7.48 (7.35-7.45); Arterial Blood Gas Hematocrit 40.2 % (37-47); Base Excess ABG 15.3 mmol/L (-2.0-2.0); Blood Gas Allen Test Pos; Blood Gas Operator Identificat JB; Blood Gas Sample Site Radial, right; Blood Gas Sample Type Arterial; HCO3 ABG 41.5 mmol/L (22-26); Oxygen Device BIPAP
[2023-03-25 04:43] LABS: PO2 FiO2 Ratio Arterial Blood 0
[2023-03-25 05:32] LABS: Basophils % 0.1 %; Eosinophils % 0.1 %; Hematocrit 40.6 % (36-47); Lymphocytes # 0.8 10^3/uL (0.8-4.8); Lymphocytes % 6.7 %; Mean Corpuscular HGB Conc 30.5 g/dL (30-55); Mean Corpuscular Volume 95.1 fl (85-98); Mean Platelet Volume 12.1 fL (7.4-10.4); Monocytes # 0.3 10^3/uL (0.2-0.9); Monocytes % 2.6 %; Neutrophils # 10.72 10^3/uL (1.8-7.7); Nucleated Red Blood Cells % 0 %; Platelet Count 160 10^3/cmm (157-399); Red Blood Count 4.27 10^6/uL (3.85-5.65); Red Cell Distribution Width 12.8 % (12.1-15.1); White Blood Count 11.91 10^3/uL (3.29-11.43)
[2023-03-25] MEDS: enoxaparin 40 mg/0.4 mL Syringe SUBCUT (05:42)
[2023-03-25] MEDS: pantoprazole 40 mg SDV IVP (05:44)
[2023-03-25 05:56] LABS: Alanine Aminotransferase < 5 U/L (0-33); Albumin Level 3.8 g/dL (3.5-5.2); Alkaline Phosphatase 68 U/L (35-105); Anion Gap 14.4 (5-19); Aspartate Amino Transferase 9 U/L (0-32); Blood Urea Nitrogen 17 mg/dL (6-20); Calcium 9.3 mg/dL (8.5-10.5); Carbon Dioxide 35 mmol/L (22-29); Chloride 92 mmol/L (98-107); Globulin 2.6 g/dL (1.3-4.6); Glomerular Filtration Rate 65.2 mL/min (90-130); Glucose 142 mg/dL (65-115); Osmolality Calculated 288 mOsm/kg (285-295); Phosphorus 2.3 mg/dL (2.5-4.5); Potassium 4.4 mmol/L (3.5-5.1); Sodium 137 mmol/L (136-145); Total Bilirubin 0.2 mg/dL (0.15-1.2); Total Protein 6.4 g/dL (6.6-8.7)
[2023-03-25 05:57] LABS: Estmated Average Glucose 111; Hemoglobin A1C 5.5 % (4.0-6.0)
[2023-03-25 05:58] LABS: Chol HDL Ratio 5.55 mg/dL (0.0-4.40); Cholesterol 183 mg/dL (0-200); HDL Cholesterol 33 mg/dL (60-100); LDL Cholesterol Calculated 131 mg/dL (50-129); LDL HDL Ratio 3.97 RATIO (0.00-3.22); Triglycerides 93 mg/dL (0-150)
[2023-03-25 06:14] LABS: Folate Level 3.7 ng/mL (4.8-37.3)
[2023-03-25] MEDS: budesonide 0.5 mg/2 mL Neb INHALATION (08:16)
--- NOTE | 2023-03-25 13:31 | P.DS_ITS ---
Discharge Providers Date of Admission: 03/24/23 03:51 Date of Discharge: March 25, 2023 Attending Provider at Admission: Haider Velasco MD Attending Provider at Discharge: Angle Rizzo MD Primary Care Provider: Reena López MD Diagnoses at Discharge Discharge Diagnosis (1) Acute on chronic respiratory failure with hypoxia and hypercapnia: Status: Acute (2) COPD (chronic obstructive pulmonary disease): Status: Acute Qualifiers: COPD type: unspecified COPD Qualified Code(s): J44.9 - Chronic obstructive pulmonary disease, unspecified (3) Anxiety: Status: Acute Reason for Visit Reason for Visit: sob, low O2, COPD, Fall Hospital Course Hospital Course Patient admitted for COPD exacerbation.? She has a BiPAP at home but does not wear it very often.? She is also on oxygen at home however says she cannot do much because she does not have a portable oxygen.? He is requesting for portable oxygen concentrator.? She states that she is back to her baseline and would like to go home today.? Patient is currently on 5 L nasal cannula at home she is on 4-5 L.? She states she will be more comfortable at home and she has been dealing with this for a long time.? It was discussed with patient that she will be getting a steroid course along with antibiotics to which she is agreeable to.? She repeatedly asks for a prescription for portable oxygen concentrator.? night shift manager updated.? They will work on insurance authorization for that.? Patient is discharged home in stable condition at this time.? All questions answered. Physical Exam Narrative: General: No acute distress, AO x3, 5L NC Chest: Bilateral bronchial breath sounds all over lung menjivar with decreased and diffuse air entry with rhonchi CVS: S1-S2 regular, no murmurs, Abdomen: Soft, nontender, bowel sounds present, morbidly obese Neuro: No focal deficits, no facial deformity, AO x3 Urinary Catheter Management: Dee: Cath Placed During This Visit: yes Reason for Continuing Indwelling Catheter: Accurate Measurement of Urinary Output in Critically Ill Patients Urinary Catheter Date of Insertion: 03/24/23 Urinary Catheter Time of Insertion: 09:30 Discharge Data Studies Completed and Pending Completed Studies During Hospitalization Category Date Time Status CT chest wo con [id number] Stat Cat Scan 03/24/23 04:42 Completed XR chest 1V [id number] Stat Exams 03/23/23 22:38 Completed Pending at discharge Category Date Time Status MRSA [Methicillin Resistant S.aureu] Routine Lab 03/24/23 09:20 Received Respiratory Panel 2 Stat Lab 03/24/23 09:34 Ordered Sputum Culture and Gram Stain Stat Lab 03/24/23 15:50 Results Radiology Impressions Chest X-Ray 03/23/23 22:38 IMPRESSION: No consolidation. Chest CT 03/24/23 04:42 IMPRESSION: No cardiopulmonary disease Laboratory Results WBC 11.91 10^3/uL (3.29-11.43) H 03/25/23 04:27 RBC 4.27 10^6/uL (3.85-5.65) 03/25/23 04:27 Hgb 12.40 g/dL (11.27-16.99) 03/25/23 04:27 Hct 40.6 % (36-47) 03/25/23 04:27 MCV 95.1 fl (85-98) 03/25/23 04:27 MCH 29.0 pg (27-33) 03/25/23 04:27 MCHC 30.5 g/dL (30-55) 03/25/23 04:27 RDW 12.8 % (12.1-15.1) 03/25/23 04:27 Plt Count 160 10^3/cmm (157-399) 03/25/23 04:27 MPV 12.1 fL (7.4-10.4) H 03/25/23 04:27 Neut % (Auto) 90.0 % 03/25/23 04:27 Lymph % (Auto) 6.7 % 03/25/23 04:27 Runnels % (Auto) 2.6 % 03/25/23 04:27 Eos % (Auto) 0.1 % 03/25/23 04:27 Baso % (Auto) 0.1 % 03/25/23 04:27 Neut # (Auto) 10.72 10^3/uL (1.8-7.7) H 03/25/23 04:27 Lymph # (Auto) 0.8 10^3/uL (0.8-4.8) 03/25/23 04:27 Runnels # (Auto) 0.3 10^3/uL (0.2-0.9) 03/25/23 04:27 Eos # (Auto) 0.0 10^3/uL (0.0-0.8) 03/25/23 04:27 Baso # (Auto) 0.0 10^3/uL (0.0-0.1) 03/25/23 04:27 Nucleated RBC % (auto) 0 % 03/25/23 04:27 Nucleated RBCs # 0.0 /100WBC 03/25/23 04:27 D-Dimer 0.49 ug/mLFEU (0-0.59) 03/24/23 12:18 Specimen Type Arterial 03/25/23 04:18 Sample Site Radial, right 03/25/23 04:18 ABG pH 7.48 (7.35-7.45) H 03/25/23 04:18 ABG pCO2 56.1 mmHg (35-45) H 03/25/23 04:18 ABG pO2 69.0 mmHg (80.0-100.0) L 03/25/23 04:18 ABG PO2/FiO2 Ratio 0 03/25/23 04:18 ABG HCO3 41.5 mmol/L (22-26) H 03/25/23 04:18 ABG O2 Saturation 86.7 03/24/23 09:51 ABG Base Excess 15.3 mmol/L (-2.0-2.0) H 03/25/23 04:18 Braxton Test Pos 03/25/23 04:18 VBG pH 7.43 (7.32-7.42) H 03/23/23 23:05 VBG pCO2 66.8 mmHg (41-51) H* 03/23/23 23:05 VBG pO2 186.0 mmHg (25-40) H 03/23/23 23:05 VBG HCO3 44.3 mmol/L (24-28) H 03/23/23 23:05 VBG Base Excess 16.5 mmol/L (-3.0-3.0) H 03/23/23 23:05 VBG Hematocrit 41.5 % (37-47) 03/23/23 23:05 A-a O2 Gradient 4.1 mmHg (5-10) L 03/24/23 09:51 Hematocrit 40.2 % (37-47) 03/25/23 04:18 Hgb O2 Saturation 84.7 % (95-100) L 03/24/23 09:51 Carboxyhemoglobin 2.0 %THgb (0.4-20.1) 03/24/23 09:51 Methemoglobin 0.3 % (0.4-1.5) L 03/24/23 09:51 Total Hemoglobin 13.8 g/dL (12-16) 03/24/23 09:51 Sodium 137.0 mmol/L (131-143) 03/24/23 09:51 Potassium 4.2 mmol/L (3.5-5.0) 03/24/23 09:51 Glucose 200.0 mg/dL (70-115) H 03/24/23 09:51 Ionized Calcium 1.1 mmol/L (1.1-1.4) 03/24/23 09:51 O2 Delivery Device Bipap 03/25/23 04:18 O2 Liters/Min 4.0 % 03/24/23 09:51 FiO2 40.0 % 03/25/23 04:18 Public Health Advisor ID Cruz 03/25/23 04:18 Sodium 137 mmol/L (136-145) 03/25/23 04:27 Potassium 4.4 mmol/L (3.5-5.1) 03/25/23 04:27 Chloride 92 mmol/L (98-107) L 03/25/23 04:27 Carbon Dioxide 35 mmol/L (22-29) H 03/25/23 04:27 Anion Gap 14.4 (5-19) 03/25/23 04:27 BUN 17 mg/dL (6-20) 03/25/23 04:27 Creatinine 0.9 mg/dL (0.5-0.9) 03/25/23 04:27 GFR Calculation 65.2 mL/min (90-130) L 03/25/23 04:27 Glucose 142 mg/dL (65-115) H 03/25/23 04:27 Estimat Average Glucose 111 03/25/23 04:27 Hemoglobin A1c 5.5 % (4.0-6.0) 03/25/23 04:27 Calculated Osmolality 288 mOsm/kg (285-295) 03/25/23 04:27 Lactic Acid 1.6 mmol/L (0.5-2.2) 03/23/23 23:05 Calcium 9.3 mg/dL (8.5-10.5) 03/25/23 04:27 Phosphorus 2.3 mg/dL (2.5-4.5) L 03/25/23 04:27 Magnesium 2.0 mg/dL (1.7-2.3) 03/25/23 04:27 Iron 47 ug/dL (37-145) 03/24/23 01:01 TIBC 250 mcg/dl 03/24/23 01:01 % Saturation 18.8 % (20-50) L 03/24/23 01:01 Unsat Iron Binding 203 ug/dL (112-347) 03/24/23 01:01 Total Bilirubin 0.2 mg/dL (0.15-1.2) 03/25/23 04:27 AST 9 U/L (0-32) 03/25/23 04:27 ALT < 5 U/L (0-33) 03/25/23 04:27 Alkaline Phosphatase 68 U/L (35-105) 03/25/23 04:27 Troponin T Baseline 11 ng/L (0-10) H 03/23/23 23:30 Troponin T 120 Minute 9.91 ng/L (0-10) 03/24/23 01:01 Delta Troponin T -1.09 ABS# (0-10) L 03/24/23 01:01 Troponin T Hi Sens 6Hr 8.10 ng/L (0-10) 03/24/23 06:10 Troponin T Hi Sens 6Hr Delta -2.9 ng/L (0-12) L 03/24/23 06:10 NT-Pro-B Natriuret Pep 102 pg/mL (0-125) 03/23/23 23:30 Total Protein 6.4 g/dL (6.6-8.7) L 03/25/23 04:27 Albumin 3.8 g/dL (3.5-5.2) 03/25/23 04:27 Globulin 2.6 g/dL (1.3-4.6) 03/25/23 04:27 Triglycerides 93 mg/dL (0-150) 03/25/23 04:27 Cholesterol 183 mg/dL (0-200) 03/25/23 04:27 LDL Cholesterol, Calc 131 mg/dL (50-129) H 03/25/23 04:27 HDL Cholesterol 33 mg/dL (60-100) L 03/25/23 04:27 LDL/HDL Ratio 3.97 RATIO (0.00-3.22) H 03/25/23 04:27 Cholesterol/HDL Ratio 5.55 mg/dL (0.0-4.40) H 03/25/23 04:27 Vitamin B12 315 pg/mL (232-1245) 03/24/23 01:01 Folate 3.7 ng/mL (4.8-37.3) L 03/25/23 04:27 Procalcitonin 0.07 ng/mL (0-0.5) 03/24/23 01:01 TSH 1.40 uIU/mL (0.27-4.20) 03/24/23 01:01 Urine Color Yellow (Yellow) 03/24/23 09:30 Urine Appearance Clear (CLEAR) 03/24/23 09:30 Urine pH 7 (5-7) 03/24/23 09:30 Ur Specific [place] 1.005 (1.005-1.030) 03/24/23 09:30 Urine Protein Neg (Negative) 03/24/23 09:30 Urine Glucose (UA) Norm (Normal) 03/24/23 09:30 Urine Ketones 1+ (Negative) H 03/24/23 09:30 Urine Blood Neg (Negative) 03/24/23 09:30 Urine Nitrate Negative (Negative) 03/24/23 09:30 Urine Bilirubin Neg (Negative) 03/24/23 09:30 Urine Urobilinogen Norm mg/dL (Negative) 03/24/23 09:30 Ur Leukocyte Esterase Negative (Negative) 03/24/23 09:30 SARS-CoV-2 Ag (Rapid) negative (Negative) 03/23/23 23:06 Vitals Last Vital Signs Temp 98.9 F 03/25/23 08:00 Pulse 111 H 03/25/23 12:00 Resp 15 03/25/23 12:00 BP 100/68 03/25/23 12:00 Pulse Ox 90 03/25/23 12:00 O2 Del Method Nasal Cannula 03/25/23 11:40 O2 Flow Rate 6 03/25/23 11:40 FiO2 40 03/25/23 04:00 Discharge Plan Discharge Patient Disposition: Home Condition: Fair Prescriptions: New prednisone 20 mg tablet 40 mg PO DAILY 5 Days Qty: 20 0RF levofloxacin 750 mg tablet 750 mg PO DAILY 7 Days Qty: 7 0RF Continued ([facility]) oxygen and concentrator See Rx Instructions .Route .MEDSUPPLY Qty: 1 0RF Rx Instructions: use 2L O2 via NC with exercise albuterol sulfate 2.5 mg /3 mL (0.083 %) solution for nebulization 2.5 mg INHALATION QID PRN (Reason: shortness of breath or wheezing) Qty: 180 2RF ipratropium-albuterol 0.5 mg-3 mg(2.5 mg base)/3 mL solution for nebulization 3 ml inhalation Q8H PRN (Reason: shortness of breath or wheezing) Qty: 90 2RF ([facility]) Portable oxygen concentrator See Rx Instructions .Route .MEDSUPPLY Qty: 1 0RF Rx Instructions: As directed ([facility]) Inspire Portable oxygen concentrator See Rx Instructions .Route .MEDSUPPLY Qty: 1 0RF Rx Instructions: Rate 4L O2 ferrous gluconate 324 mg (37.5 mg iron) tablet 324 mg PO BIDWM Qty: 60 0RF formoterol fumarate [Perforomist] 20 mcg/2 mL solution for nebulization 2 ml inhalation BID Qty: 120 6RF Spiriva with HandiHaler 18 mcg capsule, w/inhalation device 1 cap inhalation DAILY Qty: 60 6RF Rx Instructions: puncture 1 cap using device; one dose = 2 inhalations Symbicort 160-4.5 mcg/actuation HFA aerosol inhaler 2 puff INHALATION BID Ventolin HFA 90 mcg/actuation HFA aerosol inhaler 2 puff inhalation QID PRN (Reason: Shortness Of Breath) bupropion HCl 150 mg tablet extended release 24 hr 150 mg PO QAM Discharge Orders: Discharge Order (Routine); Ordered 03/25/23 Ordered By: Angle Rizzo Referrals: Reena López MD [Primary Care Provider] - 04/02/23 3:00 pm Discharge Diet: Usual diet Discharge Activity: Resume usual activity, Oxygen as instructed and Cpap/Bipap as instructed Patient Instructions: Prednisone (By mouth) (predniSONE Intensol, Prednicot, Deltasone, Reji), Levofloxacin (By mouth) (Levaquin, Levaquin Leva-sabina), Chronic Respiratory Failure (DC), Opioid Safety Discharge Attestations Time Spent in Discharge Care*: greater than 30 min Status at Discharge: Cognitive status at discharge: cognitively intact , Behavioral status at discharge: cooperative , Quality Metrics Clinical Quality Measures [ No reported AMI, CVA or VTE this stay] Coding Level of Care Code Acute Code for Chg Fwd Diagnoses Acute on chronic respiratory failure with hypoxia and hypercapnia J96.21; J96.22 COPD (chronic obstructive pulmonary disease) J44.9 COPD type: unspecified COPD Anxiety F41.9
[2023-03-25 13:49] LABS: Methicillin-Resist S.aureu PCR NOT DETECTED (NOT DETECTED)
== END 2023-03-25 14:10 | disposition home or self-care (01) | DRG 190 ==
LOC: ER 03-24 03:51 → ICU 03-24 03:58
PROVIDERS: Internal Medicine; Physician Assistant; Admitting Provider Student in an Organized Health Care Education/Training Program; Emergency Provider Emergency Medicine; PCP Family Medicine; Visit Provider Internal Medicine
DX: J44.1 Chronic obstructive pulmonary disease with (acute) exacerbation (principal); J96.21 Acute and chronic respiratory failure with hypoxia; J96.22 Acute and chronic respiratory failure with hypercapnia; F17.210 Nicotine dependence, cigarettes, uncomplicated; Z99.81 Dependence on supplemental oxygen; I10 Essential (primary) hypertension; K21.9 Gastro-esophageal reflux disease without esophagitis; F41.9 Anxiety disorder, unspecified
CPT/HCPCS: 36415; 36600; 51702; 71045; 71250; 80051; 80053; 80061; 81003; 82330; 82607; 82746; 82803; 82805; 83036; 83540; 83550; 83605; 83735; 83880; 84100; 84145; 84443; 84484; 85025; 85378; 86403; 87070; 87205; 87426; 87449; 87641; 93005; 94640; 94660; 96372; 96374; 96376; 99291; C9113; J1650; J1956; J2920; J2930; J7626

== ENCOUNTER 2023-07-18 13:56 | Inpatient (IN) | payer MEDICAID, SELFPAY ==
[2023-07-18] VITALS (54 sets, daily range): BP systolic 99–132; BP diastolic 65–90; PULSE 65–97; RESP 16–29; TEMP 36.6–37.2; O2SAT 72–97; BMI 27.3
--- NOTE | 2023-07-18 14:05 | XRR_ITS ---
PROCEDURE INFORMATION: Exam: XR Chest Exam date and time: 07/18/2023 2:20 PM Age: 52 years old Clinical indication: Cough and dyspnea; Additional info: Dyspnea/cough TECHNIQUE: Imaging protocol: Radiologic exam of the chest. Views: 1 view. COMPARISON: CT chest con [id number] 03/24/2023 5:48 AM FINDINGS: Lungs: Unremarkable. No consolidation. Pleural spaces: Unremarkable. No pleural effusion. No pneumothorax. Heart/Mediastinum: Unremarkable. No cardiomegaly. Bones/joints: Unchanged mild scoliosis. XR/XR chest 1V portable [id number] IMPRESSION: No acute disease.
[2023-07-18] MEDS: dexamethasone 10 mg/mL INJ IM (14:23)
[2023-07-18 14:24] LABS: Arterial Blood Gas Hematocrit 36.4 % (37-47); Base Excess ABG 10.4 mmol/L (-2.0-2.0); Blood Gas Allen Test Pos; Blood Gas Sample Type Arterial; Carboxyhemoglobin 8.1 %THgb (0.4-20.1); HCO3 ABG 43.1 mmol/L (22-26); HGB O2 Sat 94.3 % (95-100); Ionized Calcium Level - ABG 1.3 mmol/L (1.1-1.4); Methemoglobin < 0.0 % (0.4-1.5); Oxygen Saturation ABG > 100.0; Potassium Level - ABG 4.3 mmol/L (3.5-5.0); Total Hemoglobin 11.9 g/dL (12-16)
[2023-07-18 14:25] LABS: ABG PH Result 7.16 (7.35-7.45); Alveolar-Arterial Oxygen Gradi 45.9 mmHg (5-10); Blood Gas Operator Identificat ED; Blood Gas Sample Site Radial, right; Oxygen Device NRB; PO2 FiO2 Ratio Arterial Blood 0
[2023-07-18 14:27] LABS: Basophils % 0.1 %; Eosinophils # 0.1 10^3/uL (0.0-0.8); Eosinophils % 0.4 %; Hematocrit 42.3 % (36-47); Lymphocytes # 3.2 10^3/uL (0.8-4.8); Lymphocytes % 16.7 %; Mean Corpuscular HGB Conc 28.8 g/dL (30-55); Mean Corpuscular Volume 104.2 fl (85-98); Mean Platelet Volume 10.8 fL (7.4-10.4); Monocytes # 1.9 10^3/uL (0.2-0.9); Monocytes % 9.9 %; Neutrophils # 13.57 10^3/uL (1.8-7.7); Neutrophils % 70.6 %; Nucleated Red Blood Cells % 0 %; Platelet Count 237 10^3/cmm (157-399); Red Blood Count 4.06 10^6/uL (3.85-5.65); Red Cell Distribution Width 14.7 % (12.1-15.1); White Blood Count 19.24 10^3/uL (3.29-11.43)
--- NOTE | 2023-07-18 14:35 | W.ED.SOB ---
HPI - SOB/Dyspnea General: Chief Complaint: ER Hold Stated Complaint: sob Time Seen by Provider: 07/18/23 14:05 Source: patient Mode of arrival: ambulatory History of Present Illness: HPI Narrative: 52-year-old female presents emergency room complaining of shortness of breath normally she is on 3 L/min she woke up this morning and evidently is on 65% she eventually got up to 85% but with almost any activity at all she decreased again. Ultimately family brought her into the emergency room on arrival here she is somewhat lethargic when I came to see the patient she on 15 L by nonrebreather. She is somewhat lethargic she does admit to a cough. Has been moderately productive, denies chest pain. MD elicited complaint: shortness of breath and cough Pertinent past history: COPD Onset (ago): day(s) Timing: constant and progressively worsening Exacerbating factors: exertion and coughing Relieving factors: oxygen, rest and bronchodilators Known history of: COPD Associated symptoms: Reports chest congestion and cough; Deny abdominal pain, chest pain, diaphoresis, dizziness, extremity pain, fever(s), hemoptysis, lightheadedness, myalgias, nausea, orthopnea, palpitations, paresthesias, polydipsia, polyuria, rash, sense of impending doom, syncope, vomiting or other Treatment prior to arrival: oxygen and bronchodilator Related Data: Home oxygen amount: 3 liters Review of Systems Const: Denies: fever(s) or diaphoresis Card: Denies: chest pain, palpitations, lightheadedness, syncope or orthopnea Resp: Reports: chest congestion; Denies: hemoptysis GI: Denies: abdominal pain, nausea or vomiting : Denies: dysuria, urinary frequency or urinary urgency Musc: Denies: extremity pain Skin/Breast: Denies: rash Neuro: Denies: dizziness Endo: Denies: polyuria or polydipsia PFS ED PFSH: Medical History (Updated 07/19/23 @ 08:55 by Kentrell Garcia DO) TIA (transient ischemic attack) Dependence on supplemental oxygen Chronic hypercapnic respiratory failure HTN (hypertension) Acute exacerbation of chronic obstructive airways disease Tenosynovitis of foot Fracture of fifth metatarsal bone of right foot Gastroesophageal reflux disease Hypertension Anxiety COPD (chronic obstructive pulmonary disease) Right ankle pain Right foot pain Surgical History Hx of tubal ligation History of tonsillectomy and adenoidectomy Hx of cholecystectomy Hx of hernia repair Hx of section Hx of colonoscopy (~2012) Family History Father Cancer lung Heart disease Mother Heart disease Social History Smoking and tobacco/nicotine status: current every day tobacco/nicotine user cigarettes Packs smoked per day: 1 Years cigarettes smoked: 45 Second hand smoke exposure: Yes Alcohol intake: former Former alcohol use details: sober x 20 yrs Substance/Drug Use: never Caregiver/support person: Yes Lives independently: Yes Household members: spouse and children Marital status: service: No Current occupational status: unemployed Current gender identity: Female Special lauryn needs: No Agree to transfusion: No Physical Exam Const: GENERAL APPEARANCE: cooperative ORIENTATION/CONSCIOUSNESS: Yes awake HENMT: COMMON NORMALS: normocephalic, atraumatic and hearing grossly normal bilaterally HEAD & SCALP: normocephalic and atraumatic Resp: EFFORT & INSPECTION: Yes tachypneic, Yes respiratory distress and Yes uses accessory muscles AUSCULTATION: rhonchi and wheezes Cardio: COMMON NORMALS: regular rate, regular rhythm and No murmurs present (Cardio) RATE: regular rate RHYTHM: regular rhythm GI: COMMON NORMALS: Soft to palpation and No hepatosplenomegaly present AUSCULTATION: Yes normoactive bowel sounds PALPATION: Yes Soft to palpation, No Tenderness to palpation present (GI), No Guarding due to palpation present (GI) and Yes No hepatosplenomegaly present Extremity: COMMON NORMALS: normal to inspection, capillary refill normal, no clubbing, cyanosis or edema, no calf tenderness and no pedal edema Skin: COMMON NORMALS: no rashes or lesions noted GENERAL SKIN EXAM: no rashes or lesions noted Course Vital Signs: Vital signs: Vital Signs Temperature 97.5 F L 07/19/23 07:00 Pulse Rate 63 07/19/23 08:35 Respiratory Rate 25 H 07/19/23 08:35 Blood Pressure 119/68 07/19/23 08:35 Pulse Oximetry 87 L 07/19/23 08:35 Oxygen Delivery Me thod BiPAP 07/19/23 07:29 Oxygen Flow Rate 3 07/18/23 14:00 Fraction of Inspir ed Oxygen 60 07/19/23 07:31 MDM - SOB/Dyspnea Medical Decision Making Acute hypercapnic respiratory failure. Slightly improved after little over an hour on BiPAP but continuing with respiratory acidosis and hypercapnia. Will admit to ICU continue BiPAP and monitor closely aggressive pulmonary toilet steroids nebulizers antibiotics. Discussed with Dr. Corral orders written EKG shows normal sinus rhythm no ST elevation. Rate of 76 normal CA and QT intervals Medical Records I reviewed the patient's medical records. Lab Data I reviewed the patient's lab results. 07/19/23 01:59 07/19/23 01:59 Labs/Radiology: Radiology Impressions Chest X-Ray 07/18/23 14:05 IMPRESSION: No acute disease. Laboratory Results WBC 19.24 10^3/uL (3.29-11.43) H 07/18/23 14:17 RBC 4.06 10^6/uL (3.85-5.65) 07/18/23 14:17 Hgb 12.20 g/dL (11.27-16.99) 07/18/23 14:17 Hct 42.3 % (36-47) 07/18/23 14:17 MCV 104.2 fl (85-98) H 07/18/23 14:17 MCH 30.0 pg (27-33) 07/18/23 14:17 MCHC 28.8 g/dL (30-55) L 07/18/23 14:17 RDW 14.7 % (12.1-15.1) 07/18/23 14:17 Plt Count 237 10^3/cmm (157-399) 07/18/23 14:17 MPV 10.8 fL (7.4-10.4) H 07/18/23 14:17 Neut % (Auto) 70.6 % 07/18/23 14:17 Lymph % (Auto) 16.7 % 07/18/23 14:17 Jerauld % (Auto) 9.9 % 07/18/23 14:17 Eos % (Auto) 0.4 % 07/18/23 14:17 Baso % (Auto) 0.1 % 07/18/23 14:17 Neut # (Auto) 13.57 10^3/uL (1.8-7.7) H 07/18/23 14:17 Lymph # (Auto) 3.2 10^3/uL (0.8-4.8) 07/18/23 14:17 Jerauld # (Auto) 1.9 10^3/uL (0.2-0.9) H 07/18/23 14:17 Eos # (Auto) 0.1 10^3/uL (0.0-0.8) 07/18/23 14:17 Baso # (Auto) 0.0 10^3/uL (0.0-0.1) 07/18/23 14:17 Nucleated RBC % (auto) 0 % 07/18/23 14:17 Nucleated RBCs # 0.0 /100WBC 07/18/23 14:17 Specimen Type Arterial 07/18/23 14:14 Sample Site Radial, right 07/18/23 14:14 ABG pH 7.16 (7.35-7.45) L* 07/18/23 14:14 ABG pCO2 120.0 mmHg (35-45) H* 07/18/23 14:14 ABG pO2 217.0 mmHg (80.0-100.0) H 07/18/23 14:14 ABG PO2/FiO2 Ratio 0 07/18/23 14:14 ABG HCO3 43.1 mmol/L (22-26) H 07/18/23 14:14 ABG O2 Saturation > 100.0 07/18/23 14:14 ABG Base Excess 10.4 mmol/L (-2.0-2.0) H 07/18/23 14:14 Braxton Test Pos 07/18/23 14:14 A-a O2 Gradient 45.9 mmHg (5-10) H 07/18/23 14:14 Hematocrit 36.4 % (37-47) L 07/18/23 14:14 Hgb O2 Saturation 94.3 % (95-100) L 07/18/23 14:14 Carboxyhemoglobin 8.1 %THgb (0.4-20.1) 07/18/23 14:14 Methemoglobin < 0.0 % (0.4-1.5) L 07/18/23 14:14 Total Hemoglobin 11.9 g/dL (12-16) L 07/18/23 14:14 Sodium 143.0 mmol/L (131-143) 07/18/23 14:14 Potassium 4.3 mmol/L (3.5-5.0) 07/18/23 14:14 Glucose 110.0 mg/dL (70-115) 07/18/23 14:14 Ionized Calcium 1.3 mmol/L (1.1-1.4) 07/18/23 14:14 O2 Delivery Device Nrb 07/18/23 14:14 O2 Liters/Min 15.0 % 07/18/23 14:14 FiO2 100.0 % 07/18/23 14:14 Cap And Hat Production Supervisor ID Ed 07/18/23 14:14 Sodium 143 mmol/L (136-145) 07/18/23 14:17 Potassium 4.6 mmol/L (3.5-5.1) 07/18/23 14:17 Chloride 97 mmol/L (98-107) L 07/18/23 14:17 Carbon Dioxide 41 mmol/L (22-29) H 07/18/23 14:17 Anion Gap 9.6 (5-19) 07/18/23 14:17 BUN 9 mg/dL (6-20) 07/18/23 14:17 Creatinine 0.8 mg/dL (0.5-0.9) 07/18/23 14:17 GFR Calculation 74.7 mL/min (90-130) L 07/18/23 14:17 Glucose 109 mg/dL (65-115) 07/18/23 14:17 Calculated Osmolality 295 mOsm/kg (285-295) 07/18/23 14:17 Lactic Acid 0.5 mmol/L (0.5-2.2) 07/18/23 14:17 Calcium 8.6 mg/dL (8.5-10.5) 07/18/23 14:17 Total Bilirubin 0.2 mg/dL (0.15-1.2) 07/18/23 14:17 AST 9 U/L (0-32) 07/18/23 14:17 ALT 20 U/L (0-33) 07/18/23 14:17 Alkaline Phosphatase 56 U/L (35-105) 07/18/23 14:17 Total Protein 6.3 g/dL (6.6-8.7) L 07/18/23 14:17 Albumin 4.0 g/dL (3.5-5.2) 07/18/23 14:17 Globulin 2.3 g/dL (1.3-4.6) 07/18/23 14:17 All radiology interpretation(s) finalized by discharge Discharge Plan Discharge Patient Disposition: Admitted As Inpatient Admit Provider: Saleem Manley Clinical Impression: Acute respiratory failure with hypoxia and hypercapnia, Acute exacerbation of chronic obstructive airways disease Condition: Stable Coding Level of Care Code ED Die Holder for Vishal Badillo
[2023-07-18 14:43] LABS: Alanine Aminotransferase 20 U/L (0-33); Alkaline Phosphatase 56 U/L (35-105); Anion Gap 9.6 (5-19); Aspartate Amino Transferase 9 U/L (0-32); Blood Urea Nitrogen 9 mg/dL (6-20); Calcium 8.6 mg/dL (8.5-10.5); Chloride 97 mmol/L (98-107); Creatinine Clr Calc Pharmacy 66.8829; Globulin 2.3 g/dL (1.3-4.6); Glomerular Filtration Rate 74.7 mL/min (90-130); Glucose 109 mg/dL (65-115); Osmolality Calculated 295 mOsm/kg (285-295); Potassium 4.6 mmol/L (3.5-5.1); Sodium 143 mmol/L (136-145); Total Bilirubin 0.2 mg/dL (0.15-1.2); Total Protein 6.3 g/dL (6.6-8.7)
[2023-07-18 14:45] LABS: Carbon Dioxide 41 mmol/L (22-29)
[2023-07-18] MEDS: piperacillin-tazobactam 3.375 GM in sodium chloride 0.9% (plus) 50 ML IV ×2 (14:47→22:15)
[2023-07-18 15:02] LABS: Lactic Sepsis W/Reflex 0.5 mmol/L (0.5-2.2)
--- NOTE | 2023-07-18 15:14 | ECG_ITS ---
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 Measurements Intervals [place] Rate: 76 P: 59 [place]: 134 QRS: 46 QRSD: 78 T: 55 QT: 372 QTc: 419 Interpretive Statements SINUS RHYTHM Compared to ECG 03/24/2023 05:21:00 T-wave abnormality no longer present Electronically Signed On 07-19-2023 8:15:51 CDT by Irwin Barahona M.D. [id number]
[2023-07-18] MEDS: ipratropium-albuterol 3 mL Neb INHALATION ×2 (15:35→19:33)
[2023-07-18] MEDS: albuterol 2.5 mg/3 mL Neb INHALATION (15:35)
[2023-07-18] MEDS: vancomycin 1,000 MG in sodium chloride 0.9% 250 ML 250 MG IV (15:50)
[2023-07-18 16:02] LABS: ABG PCO2 98.8 mmHg (35-45); ABG PH Result 7.25 (7.35-7.45); Alveolar-Arterial Oxygen Gradi 14.9 mmHg (5-10); Arterial Blood Gas Hematocrit 37.6 % (37-47); Base Excess ABG 12.5 mmol/L (-2.0-2.0); Blood Gas Allen Test Pos; Blood Gas Operator Identificat MONRO; Blood Gas Sample Site Radial, left; Blood Gas Sample Type Arterial; Carboxyhemoglobin 7.1 %THgb (0.4-20.1); HCO3 ABG 43.6 mmol/L (22-26); HGB O2 Sat 81.7 % (95-100); Ionized Calcium Level - ABG 1.3 mmol/L (1.1-1.4); Methemoglobin 0.6 % (0.4-1.5); Oxygen Device BIPAP; Oxygen Saturation ABG 88.5; PO2 ABG 53.2 mmHg (80.0-100.0); PO2 FiO2 Ratio Arterial Blood 0; Potassium Level - ABG 4.6 mmol/L (3.5-5.0); Total Hemoglobin 12.3 g/dL (12-16)
[2023-07-18 18:02] LABS: Adenovirus Not Detected (NOT DETECT); Chlamydia Pneumoniae Not Detected (NOT DETECT); Coronavirus 229E,HKU1,NL63,OC4 Not Detected (NOT DETECT); Human Metapneumovirus Not Detected (NOT DETECT); Human Rhinovirus/Enterovirus Not Detected (NOT DETECT); Influenza A Not Detected (NOT DETECT); Influenza A H1 Not Detected (NOT DETECT); Influenza A H1-2009 Not Detected (NOT DETECT); Influenza A H3 Not Detected (NOT DETECT); Influenza B Not Detected (NOT DETECT); Mycoplasma Pneumoniae Not Detected (NOT DETECT); Parainfluenza Virus Type 1 Not Detected (NOT DETECT); Parainfluenza Virus Type 2 Not Detected (NOT DETECT); Parainfluenza Virus Type 3 Not Detected (NOT DETECT); Parainfluenza Virus Type 4 Not Detected (NOT DETECT); Respiratory Syncytial Virus A Not Detected (NOT DETECT); Respiratory Syncytial Virus B Not Detected (NOT DETECT); SARS-COV-2 Not Detected (NOT DETECT)
--- NOTE | 2023-07-18 18:07 | P.HP_ITS ---
Providers/Chief Complaint 2 Admitting Physician: Saleem Manley Primary Care Provider: Reena López MD Chief Complaint: sob History of Present Illness 52-year lady with history of COPD, has a BiPAP machine at home which she normally uses with sleep, on continuous oxygen 3 L, has a nebulizer as well, was recently admitted from Saturday to Saturday for management of COPD exacerbation discharged with a prednisone taper gradually started getting more short of breath again, this did not improve despite trying to use her BiPAP at home. She started also becoming more sleepy and her daughters try to put the BiPAP on her, but without improvement she was taken for evaluation in ED. On presentation she was lethargic, hypoxic, initially on nonrebreather, ABG with severe respiratory acidosis, pH 7.16, CO2 120. Was started on BiPAP. She received a breathing treatment, a dose of Decadron, and with recent hospitalization empirically received Zosyn and vancomycin. She is slightly easier to awaken, ABG with partial improvement 7.25/98.8./53.2. On 40% FiO2. Review of Systems 2 Const: Reports: daytime sleepiness; Denies: fever(s), chills, body aches or malaise ENMT: Denies: throat pain Card: Denies: chest pain, edema, pre-syncope or dyspnea on exertion Resp: Reports: dyspnea, productive cough, change in phlegm color and other (Restricted inspiration. Pleuritic chest pain.); Denies: hemoptysis GI: Denies: abdominal pain, nausea, vomiting, diarrhea, constipation, hematochezia or melena : Denies: flank pain, urinary frequency or hematuria Musc: Denies: back pain, joint swelling or joint redness Skin/Breast: Denies: rash or new lesions Medications/Allergies Home Medications Medication Instructions Recorded Confirmed Last Taken Type oxygen and concentrator #1 ea 03/03/20 07/18/23 Unknown Rx Inspire Portable oxygen #1 ea 10/30/22 07/18/23 Unknown Rx concentrator Portable oxygen concentrator #1 ea 10/30/22 07/18/23 Unknown Rx ipratropium 0.5 mg-albuterol 3 mg 3 ml inhalation Q8H PRN shortness 10/30/22 07/18/23 07/17/23 Rx (2.5 mg base)/3 mL nebulization of breath or wheezing #90 mL soln formoterol fumarate 20 mcg/2 mL 2 ml inhalation BID COPD #120 mL 12/10/22 07/18/23 07/17/23 Rx solution for nebulization (Perforomist) tiotropium bromide 18 mcg capsule 1 cap inhalation DAILY #60 12/25/22 07/18/23 07/17/23 Rx with inhalation device (Spiriva inhalations with HandiHaler) albuterol sulfate 90 mcg/actuation 2 puff inhalation QID PRN 03/24/23 07/18/23 Unknown History aerosol inhaler (Ventolin HFA) Shortness Of Breath albuterol sulfate 2.5 mg/3 mL See Rx Instructions .Route 04/05/23 07/18/23 07/17/23 Rx (0.083 %) solution for nebulization .COMPLEX #180 mL budesonide-formoterol HFA 160 2 puff inhalation BID #10.2 grams 04/16/23 07/18/23 07/17/23 Rx mcg-4.5 mcg/actuation aerosol inhaler (Symbicort) bupropion HCl 150 mg 24 hr tablet, 150 mg PO QAM #30 tabs 04/16/23 07/18/23 07/17/23 Rx extended release Portable Oxygen Concentrator 06/18/23 07/18/23 Unknown History Portable Oxygen Concentrator #1 ea 06/18/23 07/18/23 Unknown Rx ferrous gluconate 324 mg (37.5 mg 37.5 mg PO BIDWM 07/18/23 07/18/23 07/17/23 History iron) tablet pantoprazole 40 mg tablet,delayed 40 mg PO DAILY 07/18/23 07/18/23 07/17/23 History release polyethylene glycol 3350 17 17 g PO BID PRN Constipation 07/18/23 07/18/23 07/17/23 History gram/dose oral powder prednisone 20 mg tablet 20 mg PO DAILY 07/18/23 07/18/23 07/17/23 History sennosides 8.6 mg tablet (Senna 8.6 mg PO BID PRN Constipation 07/18/23 07/18/23 07/17/23 History Lax) Allergies Allergy/AdvReac Type Severity Reaction Status Date / Time hydrocodone Allergy ADR-Vomitin Verified 07/18/23 14:25 g tramadol Allergy ADR-Itching Verified 07/18/23 14:25 PFSH Acute 2 PFSH: Medical History (Updated 07/18/23 @ 19:34 by Saleem Manley MD) TIA (transient ischemic attack) Dependence on supplemental oxygen Chronic hypercapnic respiratory failure HTN (hypertension) Acute exacerbation of chronic obstructive airways disease Tenosynovitis of foot Fracture of fifth metatarsal bone of right foot Gastroesophageal reflux disease Hypertension Anxiety COPD (chronic obstructive pulmonary disease) Right ankle pain Right foot pain Surgical History Hx of tubal ligation History of tonsillectomy and adenoidectomy Hx of cholecystectomy Hx of hernia repair Hx of section Hx of colonoscopy (~2012) Family History Father Cancer lung Heart disease Mother Heart disease Social History Smoking and tobacco/nicotine status: current every day tobacco/nicotine user cigarettes Packs smoked per day: 1 Years cigarettes smoked: 45 Second hand smoke exposure: Yes Alcohol intake: former Former alcohol use details: sober x 20 yrs Substance/Drug Use: never Caregiver/support person: Yes Lives independently: Yes Household members: spouse and children Marital status: service: No Current occupational status: unemployed Current gender identity: Female Special lauryn needs: No Agree to transfusion: No Vitals/I&O/Wt Last Vital Signs Temp 97.8 F 07/18/23 14:00 Pulse 76 07/18/23 17:30 Resp 22 H 07/18/23 17:30 BP 108/70 07/18/23 17:30 Pulse Ox 82 L 07/18/23 17:20 O2 Del Method BiPAP 07/18/23 15:35 O2 Flow Rate 3 07/18/23 14:00 FiO2 40 07/18/23 15:35 07/18/23 07/18/23 07/18/23 06:59 14:59 22:59 Intake Total 300 / 300 Balance 300 / 300 Weight last 48 hrs Weight 63.503 kg Physical Exam 2 Narrative: Accompanied by family. Const: COMMON NORMALS: patient oriented x3 and alert GENERAL APPEARANCE: c ooperative ORIENTATION/CONSCIOUSNESS: Yes awake HENMT: COMMON NORMALS: oropharynx normal Neck/C-Spine: COMMON NORMALS: no JVD Resp: AUSCULTATION: wheezes and diminished lung sounds Cardio: COMMON NORMALS: no JVD, regular rhythm, S1 normal heart sound present, S2 normal heart sound present and No murmurs present (Cardio) RHYTHM: regular rhythm HEART SOUNDS: S1 normal heart sound present and S2 normal heart sound present GI: COMMON NORMALS: Soft to palpation and non-tender INSPECTION: Yes abdominal distension PALPATION: Yes Soft to palpation Extremity: COMMON NORMALS: no joint enlargement and no pedal edema Neuro: COMMON NORMALS: patient oriented x3 and moves all extremities S ENSORIUM/ORIENTATION: Yes alert Skin: COMMON NORMALS: no rashes or lesions noted GENERAL SKIN EXAM: no rashes or lesions noted Data 07/18/23 14:17 07/18/23 14:17 Micro: Microbiology 07/18/23 14:47 Blood Culture - Preliminary Blood SPECIMEN COLLECTED 07/18/23 14:40 Blood Culture - Preliminary Blood SPECIMEN COLLECTED A&P Assessment and plan (1) Acute respiratory failure with hypoxia and hypercapnia: Reviewed vitals, CBC, ABG, repeat ABG, CMP, chest x-ray, EKG on my interpretation without signs of ischemia, respiratory viral panel, ER note, discussed with ER provider. Severe exacerbation of COPD with wheezing, decreased air entry, cough productive of green sputum, dyspnea, respiratory failure with hypoxia and hypercapnia, respiratory acidosis, acute hypercapnic encephalopathy. Continues to require BiPAP support. Persistent respiratory acidosis, admission to intensive care unit this time. Continue to monitor condition in case may end up requiring intubation. Discussed with her regarding consideration of intubation, she would only want as a last resort. She would be okay with resuscitation in case of cardiopulmonary arrest. Continue empiric antibiotic coverage given recent hospitalization and recurrence of/worsening condition. Zosyn, vancomycin, monitor for kidney dysfunction with antibiotic combination. IV steroids Solu-Medrol, monitor for hyperglycemia, hypertension. Breathing treatments. Collect sputum cultures. Obtain MRSA PCR. (2) Chest tightness: She feels somewhat of a band around her chest, difficult to get a deep breath. Some pain on inspiration. Suspect secondary to her dyspnea, tachypnea, chest x- ray unremarkable. Will obtain D-dimer, troponin EKG series. Monitor on telemetry. He denies history of CAD, CT or stenting. Denies history of VTE. Lovenox VT prophylaxis. Plan HTN: Monitor blood pressures GERD: Continue PPI Anxiety: Continue Wellbutrin Attestations 2 Medical Necessity Statement*: Admission of over 2 midnights anticipated for assessment management of respiratory failure with respiratory acidosis, hypercapnic encephalopathy, severe COPD exacerbation. Coding Level of Care Code Critical Care >/= 30 minutes Critical care time (in minutes): 35 The high probability of a clinically significant, sudden or life threatening deterioration, as referenced in this documentation, required my full and direct attention, intervention and personal management. The critical care time shown is in addition to time spent performing any reported separately billable procedures and includes the following: [x] Data and vital sign review and interpretation [x ] Patient assessment, examination and intervention [x] Medication orders and management [x] Patient/Family updates as able [x] Care Coordination and Documentation. Diagnoses Acute respiratory failure with hypoxia and hypercapnia J96.01; J96.02 Chest tightness R07.89
--- NOTE | 2023-07-18 19:43 | PC.NURSE ---
Patient transferred to ICU3 via gurney from ER. Respiratory therapist present in room. Patient on Bipap with 02 saturation of 94%. Oriented patient to room, educated supervisor production department light use.
[2023-07-18] MEDS: enoxaparin 40 mg/0.4 mL Syringe SUBCUT (19:58)
[2023-07-18] MEDS: methylPREDNISolone sod succ 125 mg/2 mL INJ 60 MG IVP (19:59)
[2023-07-18] MEDS: pantoprazole 40 mg SDV IVP (20:00)
[2023-07-18 20:31] LABS: D Dimer 0.49 ug/mLFEU (0-0.59)
[2023-07-18 20:33] LABS: Troponin(5th) Baseline 14 ng/L (0-10)
--- NOTE | 2023-07-18 21:33 | ECG_ITS ---
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 Measurements Intervals [place] Rate: 71 P: 60 OR: 132 QRS: 63 QRSD: 76 T: 67 QT: 384 QTc: 419 Interpretive Statements SINUS RHYTHM Compared to ECG 07/18/2023 15:14:22 No significant changes Electronically Signed On 07-19-2023 8:16:33 CDT by Irwin Barahona M.D. [id number]
[2023-07-18 22:14] LABS: Troponin 5 2HR 14.88 ng/L (0-10); Troponin 5 2HR Delta 0.88 ABS# (0-10)
[2023-07-19] VITALS (162 sets, daily range): BP systolic 105–147; BP diastolic 68–93; PULSE 0–93; RESP 13–29; TEMP 36.3–37.1; O2SAT 64–100; BMI 26.7
--- NOTE | 2023-07-19 01:33 | ECG_ITS ---
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 Measurements Intervals [place] Rate: 71 P: 75 [place]: 149 QRS: 51 QRSD: 85 T: 63 QT: 396 QTc: 432 Interpretive Statements SINUS RHYTHM Compared to ECG 07/18/2023 20:23:00 No significant changes Electronically Signed On 07-19-2023 8:16:04 CDT by Irwin Barahona M.D. [id number]
[2023-07-19] MEDS: vancomycin 1,000 MG in sodium chloride 0.9% 250 ML 250 MG IV ×2 (02:03→14:48)
[2023-07-19] MEDS: methylPREDNISolone sod succ 125 mg/2 mL INJ 60 MG IVP ×4 (02:04→19:30)
[2023-07-19 02:06] LABS: Hematocrit 40.7 % (36-47); Lymphocytes # 0.8 10^3/uL (0.8-4.8); Lymphocytes % 12.3 %; Mean Corpuscular HGB Conc 28.5 g/dL (30-55); Mean Corpuscular Hemoglobin 29.4 pg (27-33); Mean Corpuscular Volume 103.3 fl (85-98); Mean Platelet Volume 10.4 fL (7.4-10.4); Monocytes # 0.2 10^3/uL (0.2-0.9); Monocytes % 3.3 %; Neutrophils # 5.17 10^3/uL (1.8-7.7); Neutrophils % 82.3 %; Nucleated Red Blood Cells % 0 %; Platelet Count 181 10^3/cmm (157-399); Red Blood Count 3.94 10^6/uL (3.85-5.65); Red Cell Distribution Width 14.6 % (12.1-15.1); White Blood Count 6.28 10^3/uL (3.29-11.43)
[2023-07-19] MEDS: ipratropium-albuterol 3 mL Neb INHALATION ×4 (02:19→20:09)
[2023-07-19 02:22] LABS: Anion Gap 12.3 (5-19); Blood Urea Nitrogen 13 mg/dL (6-20); Calcium 8.9 mg/dL (8.5-10.5); Carbon Dioxide 40 mmol/L (22-29); Chloride 96 mmol/L (98-107); Creatinine Clr Calc Pharmacy 66.8829; Glomerular Filtration Rate 74.7 mL/min (90-130); Glucose 146 mg/dL (65-115); Osmolality Calculated 299 mOsm/kg (285-295); Potassium 5.3 mmol/L (3.5-5.1); Sodium 143 mmol/L (136-145)
[2023-07-19 02:30] LABS: Troponin 5 6HR 15.84 ng/L (0-10); Troponin 5 6HR Delta 1.84 ng/L (0-12)
[2023-07-19] MEDS: piperacillin-tazobactam 3.375 GM in sodium chloride 0.9% (plus) 50 ML IV ×3 (05:27→22:18)
[2023-07-19 09:52] LABS: ABG PH Result 7.36 (7.35-7.45); Alveolar-Arterial Oxygen Gradi 24.5 mmHg (5-10); Arterial Blood Gas Hematocrit 36.8 % (37-47); Base Excess ABG 16.6 mmol/L (-2.0-2.0); Blood Gas Allen Test Pos; Blood Gas Operator Identificat MONRO; Blood Gas Sample Site Brachial, right; Blood Gas Sample Type Arterial; Carboxyhemoglobin 1.2 %THgb (0.4-20.1); HCO3 ABG 45.8 mmol/L (22-26); HGB O2 Sat 93.2 % (95-100); Ionized Calcium Level - ABG 1.3 mmol/L (1.1-1.4); Methemoglobin 0.5 % (0.4-1.5); Oxygen Device BIPAP; Oxygen Saturation ABG 94.9; PO2 ABG 72.4 mmHg (80.0-100.0); PO2 FiO2 Ratio Arterial Blood 0; Potassium Level - ABG 4.8 mmol/L (3.5-5.0)
[2023-07-19 09:53] LABS: ABG PCO2 81.9 mmHg (35-45)
[2023-07-19] MEDS: pantoprazole 40 mg SDV IVP ×2 (12:52→23:17)
--- NOTE | 2023-07-19 18:01 | PC.NURSE ---
SHift SUmmray: Patient is now alert and oriented to person, place, time, and situation. Much more energetic than this morning. Has been compliant with bipap and has worn it for most of the day, but was briefly off for meals. Up to the chair for about a hour.
--- NOTE | 2023-07-19 20:26 | P.PN_ITS ---
Subjective 2 Subjective: She is sleeping but wakes up to voice. Reports she is improving. Still with productive cough. No chest pain. Tolerating BiPAP. No vomiting. Family reports and she confirms that she had bright red blood in gastric suctioning during prior hospitalization. Did not have endoscopy. Takes ibuprofen at home. Discussed with her to discontinue. Vitals/I&O/Wt Last Vital Signs Temp 98.7 F 07/19/23 17:00 Pulse 69 07/19/23 20:00 Resp 18 07/19/23 20:00 BP 134/81 07/19/23 17:55 Pulse Ox 94 07/19/23 20:00 O2 Del Method BiPAP 07/19/23 20:00 O2 Flow Rate 40 07/19/23 12:34 FiO2 50 07/19/23 20:00 07/19/23 07/19/23 07/19/23 06:59 14:59 22:59 Intake Total 300 / 600 50 / 50 700 / 750 Output Total 300 / 300 300 / 600 Balance 300 / 350 -250 / -250 400 / 150 Weight last 48 hrs Weight 62.142 kg Weight 63.503 kg Weight 63.503 kg Physical Exam 2 Narrative: Accompanied by family. Const: COMMON NORMALS: patient oriented x3 and alert GENERAL APPEARANCE: c ooperative ORIENTATION/CONSCIOUSNESS: Yes awake OTHER: BiPAP HENMT: COMMON NORMALS: oropharynx normal Neck/C-Spine: COMMON NORMALS: no JVD Resp: AUSCULTATION: diminished lung sounds Cardio: COMMON NORMALS: no JVD, regular rhythm, S1 normal heart sound present, S2 normal heart sound present and No murmurs present (Cardio) RHYTHM: regular rhythm HEART SOUNDS: S1 normal heart sound present and S2 normal heart sound present GI: COMMON NORMALS: Normal to inspection, nondistended, normoactive bowel sounds present, Soft to palpation and non-tender INSPECTION: Yes abdominal distension PALPATION: Yes Soft to palpation Extremity: COMMON NORMALS: no joint enlargement and no pedal edema Neuro: COMMON NORMALS: patient oriented x3 and moves all extremities S ENSORIUM/ORIENTATION: Yes alert Skin: COMMON NORMALS: no rashes or lesions noted GENERAL SKIN EXAM: no rashes or lesions noted Data 07/19/23 01:59 07/19/23 01:59 Micro: Microbiology 07/18/23 14:47 Blood Culture - Preliminary Blood NEGATIVE TO DATE 07/18/23 14:40 Blood Culture - Preliminary Blood NEGATIVE TO DATE A&P Assessment and plan (1) Acute respiratory failure with hypoxia and hypercapnia: Reviewed vitals, CBC, ABG, BMP, troponin, blood culture, BiPAP settings, discussed with respiratory therapy. ABG with gradual improvement although still respiratory acidosis. She is still having some asterixis/encephalopathy, but wakes up more easily, more responsive. Continue BiPAP support. Weaned off briefly to try to have some oral intake, return to BiPAP subsequently. Continue to reassess mental And respiratory status. Still at risk of failure and need for intubation. Continue clear liquid diet for now. Discussed with case supervisor. Continue IV steroids, monitor for hyperglycemia, hypertension, continue Zosyn, vancomycin, monitor for ELISA with antibiotic combination, continue breathing treatments, pulmonary toilet. Severe exacerbation of COPD with wheezing, decreased air entry, cough productive of green sputum, dyspnea, respiratory failure with hypoxia and hypercapnia, respiratory acidosis, acute hypercapnic encephalopathy. Continues to require BiPAP support. Persistent respiratory acidosis, admission to intensive care unit this time. Continue to monitor condition in case may end up requiring intubation. Discussed with her regarding consideration of intubation, she would only want as a last resort. She would be okay with resuscitation in case of cardiopulmonary arrest. Continue empiric antibiotic coverage given recent hospitalization and recurrence of/worsening condition. Zosyn, vancomycin, monitor for kidney dysfunction with antibiotic combination. IV steroids Solu-Medrol, monitor for hyperglycemia, hypertension. Breathing treatments. Collect sputum cultures. Obtain MRSA PCR. (2) Chest tightness: No chest pain or pressure today. Troponin series reviewed, mild elevation without rise. D-dimer reviewed, unremarkable. She feels somewhat of a band around her chest, difficult to get a deep breath. Some pain on inspiration. Suspect secondary to her dyspnea, tachypnea, chest x- ray unremarkable. Will obtain D-dimer, troponin EKG series. Monitor on telemetry. He denies history of CAD, [place] or stenting. Denies history of VTE. Lovenox VT prophylaxis. (3) Upper GI bleeding: Reported blood suctioned on gastric suctioning repeatedly during prior hospitalization. Has not had endoscopy. Does take losartan at home. Discussed with her and family, we held Lovenox, increased Protonix to twice daily. Monitor for any bleeding. Reassess blood counts. Plan HTN: Monitor blood pressures GERD: Continue PPI Anxiety: Continue Wellbutrin Attestations 2 Medical Necessity Statement*: Continue admission for assessment management of respiratory failure. Coding Level of Care Code Critical Care >/= 30 minutes Critical care time (in minutes): 35 The high probability of a clinically significant, sudden or life threatening deterioration, as referenced in this documentation, required my full and direct attention, intervention and personal management. The critical care time shown is in addition to time spent performing any reported separately billable procedures and includes the following: [x] Data and vital sign review and interpretation [x ] Patient assessment, examination and intervention [x] Medication orders and management [x] Patient/Family updates as able [x] Care Coordination and Documentation. Diagnoses Acute respiratory failure with hypoxia and hypercapnia J96.01; J96.02 Chest tightness R07.89 Upper GI bleeding K92.2
[2023-07-20] VITALS (29 sets, daily range): BP systolic 106–130; BP diastolic 68–95; PULSE 60–93; RESP 16–22; TEMP 36.3–37; O2SAT 89–99
[2023-07-20] MEDS: methylPREDNISolone sod succ 125 mg/2 mL INJ 60 MG IVP ×4 (02:08→19:58)
[2023-07-20] MEDS: ipratropium-albuterol 3 mL Neb INHALATION ×4 (02:25→20:07)
[2023-07-20] MEDS: vancomycin 1,000 MG in sodium chloride 0.9% 250 ML 250 MG IV ×2 (02:43→14:13)
[2023-07-20] MEDS: piperacillin-tazobactam 3.375 GM in sodium chloride 0.9% (plus) 50 ML IV ×3 (05:22→21:38)
[2023-07-20 05:42] LABS: Hematocrit 39.7 % (36-47); Lymphocytes # 0.7 10^3/uL (0.8-4.8); Lymphocytes % 10.7 %; Mean Corpuscular HGB Conc 30.2 g/dL (30-55); Mean Corpuscular Hemoglobin 29.7 pg (27-33); Mean Corpuscular Volume 98.3 fl (85-98); Monocytes # 0.3 10^3/uL (0.2-0.9); Monocytes % 4.2 %; Neutrophils # 5.78 10^3/uL (1.8-7.7); Neutrophils % 83.8 %; Nucleated Red Blood Cells % 0 %; Platelet Count 193 10^3/cmm (157-399); Red Blood Count 4.04 10^6/uL (3.85-5.65); Red Cell Distribution Width 14.4 % (12.1-15.1)
[2023-07-20 06:05] LABS: Anion Gap 11.5 (5-19); Blood Urea Nitrogen 15 mg/dL (6-20); Calcium 8.8 mg/dL (8.5-10.5); Carbon Dioxide 40 mmol/L (22-29); Chloride 94 mmol/L (98-107); Creatinine Clr Calc Pharmacy 75.6481; Glomerular Filtration Rate 87.2 mL/min (90-130); Glucose 139 mg/dL (65-115); Osmolality Calculated 295 mOsm/kg (285-295); Potassium 4.5 mmol/L (3.5-5.1); Sodium 141 mmol/L (136-145)
[2023-07-20] MEDS: pantoprazole 40 mg SDV IVP ×2 (11:07→23:09)
[2023-07-20] MEDS: acetaminophen 325 mg Tablet 650 MG PO (15:15)
--- NOTE | 2023-07-20 19:01 | P.PN_ITS ---
Subjective 2 Subjective: Sitting up in bed, awake, feels she is improving. Vitals/I&O/Wt Last Vital Signs Temp 98.5 F 07/20/23 14:20 Pulse 82 07/20/23 16:00 Resp 18 07/20/23 16:00 BP 119/71 07/20/23 05:00 Pulse Ox 94 07/20/23 16:00 O2 Del Method High Flow Nasal Cannula 07/20/23 13:25 O2 Flow Rate 15 07/20/23 13:25 FiO2 50 07/20/23 08:31 07/20/23 07/20/23 07/20/23 06:59 14:59 22:59 Intake Total 300 / 1200 1510 / 1510 730 / 2240 Output Total 350 / 950 Balance -50 / 250 1510 / 1510 730 / 2240 Weight last 48 hrs Weight 68.039 kg Weight 62.142 kg Weight 63.503 kg Physical Exam 2 Narrative: Accompanied by family. Const: COMMON NORMALS: patient oriented x3 and alert GENERAL APPEARANCE: c ooperative ORIENTATION/CONSCIOUSNESS: Yes awake OTHER: Nasal cannula. HENMT: COMMON NORMALS: oropharynx normal Neck/C-Spine: COMMON NORMALS: no JVD Resp: COMMON NORMALS: normal respiratory effort AUSCULTATION: wheezes (L) Cardio: COMMON NORMALS: no JVD, regular rhythm, S1 normal heart sound present, S2 normal heart sound present and No murmurs present (Cardio) RHYTHM: regular rhythm HEART SOUNDS: S1 normal heart sound present and S2 normal heart sound present GI: COMMON NORMALS: Normal to inspection, nondistended, normoactive bowel sounds present, Soft to palpation and non-tender INSPECTION: Yes abdominal distension PALPATION: Yes Soft to palpation Extremity: COMMON NORMALS: no joint enlargement and no pedal edema Neuro: COMMON NORMALS: patient oriented x3 and moves all extremities S ENSORIUM/ORIENTATION: Yes alert Skin: COMMON NORMALS: no rashes or lesions noted GENERAL SKIN EXAM: no rashes or lesions noted Data 07/20/23 04:02 07/20/23 04:02 Micro: Microbiology 07/18/23 14:47 Blood Culture - Preliminary Blood NEGATIVE TO DATE 07/18/23 14:40 Blood Culture - Preliminary Blood NEGATIVE TO DATE A&P Assessment and plan (1) Acute respiratory failure with hypoxia and hypercapnia: Gradual improvement, she is more alert, weaning off BiPAP for longer periods. Target O2 saturation 88 To 90%. Avoid hyperoxia. She still having wheezing, although it is better than previously. Continue IV steroid, breathing treatments, continue empiric antibiotics with Zosyn, vancomycin for now. Monitor for risk of ELISA with antibiotic combination. Reviewed vitals, CBC, BMP, blood culture. Sputum culture uncollected. MRSA PCR ordered. Transfer out of ICU, continue care on medical surgical floor. Severe exacerbation of COPD. Discussed with her regarding consideration of intubation, she would only want as a last resort. She would be okay with resuscitation in case of cardiopulmonary arrest. (2) Chest tightness: So far resolved. Reassess. No chest pain or pressure today. Troponin series reviewed, mild elevation without rise. D-dimer reviewed, unremarkable. She feels somewhat of a band around her chest, difficult to get a deep breath. Some pain on inspiration. Suspect secondary to her dyspnea, tachypnea, chest x- ray unremarkable. Will obtain D-dimer, troponin EKG series. Monitor on telemetry. He denies history of CAD, [place] or stenting. Denies history of VTE. Lovenox VT prophylaxis. (3) Upper GI bleeding: So far without recurrence. Reviewed CBC, blood counts without change. Reported blood suctioned on gastric suctioning repeatedly during prior hospitalization. Has not had endoscopy. Does take losartan at home. Discussed with her and family, we held Lovenox, increased Protonix to twice daily. Monitor for any bleeding. Reassess blood counts. Plan HTN: Monitor blood pressures GERD: Continue PPI Anxiety: Continue Wellbutrin Attestations 2 Medical Necessity Statement*: Continue admission for assessment management of improving severe exacerbation of COPD. and High MDM includes described risk of complication, morbidity or mortality of management as documented Diagnoses Acute respiratory failure with hypoxia and hypercapnia J96.01; J96.02 Chest tightness R07.89 Upper GI bleeding K92.2
[2023-07-21] VITALS (14 sets, daily range): BP systolic 103–124; BP diastolic 66–79; PULSE 72–93; RESP 17–20; TEMP 36.3–36.6; O2SAT 91–100
[2023-07-21] MEDS: methylPREDNISolone sod succ 125 mg/2 mL INJ 60 MG IVP ×4 (01:14→20:46)
[2023-07-21 02:12] LABS: Hematocrit 35.6 % (36-47); Lymphocytes # 0.7 10^3/uL (0.8-4.8); Lymphocytes % 6.2 %; Mean Corpuscular HGB Conc 31.2 g/dL (30-55); Mean Corpuscular Hemoglobin 29.9 pg (27-33); Monocytes # 0.6 10^3/uL (0.2-0.9); Neutrophils # 10.34 10^3/uL (1.8-7.7); Neutrophils % 88.2 %; Nucleated Red Blood Cells % 0 %; Platelet Count 184 10^3/cmm (157-399); Red Blood Count 3.71 10^6/uL (3.85-5.65); Red Cell Distribution Width 14.8 % (12.1-15.1); White Blood Count 11.73 10^3/uL (3.29-11.43)
[2023-07-21 02:27] LABS: Blood Urea Nitrogen 22 mg/dL (6-20); Calcium 8.7 mg/dL (8.5-10.5); Carbon Dioxide 37 mmol/L (22-29); Chloride 95 mmol/L (98-107); Creatinine Clr Calc Pharmacy 39.5346; Glomerular Filtration Rate 39.2 mL/min (90-130); Glucose 158 mg/dL (65-115); Osmolality Calculated 299 mOsm/kg (285-295); Sodium 141 mmol/L (136-145)
[2023-07-21 02:33] LABS: Vancomycin Trough 33.6 ug/mL (10-15)
[2023-07-21] MEDS: buPROPion XL (24 HR) 150 mg Tablet PO (06:07)
[2023-07-21] MEDS: piperacillin-tazobactam 3.375 GM in sodium chloride 0.9% (plus) 50 ML IV ×3 (06:09→22:14)
[2023-07-21] MEDS: ipratropium-albuterol 3 mL Neb INHALATION ×3 (07:37→19:49)
[2023-07-21] MEDS: pantoprazole 40 mg SDV IVP ×2 (11:55→22:55)
[2023-07-21 13:15] LABS: Vancomycin Trough 22.8 ug/mL (10-15)
[2023-07-21] MEDS: vancomycin 1,000 MG in sodium chloride 0.9% 250 ML 250 MG IV (17:27)
--- NOTE | 2023-07-21 21:29 | P.PN_ITS ---
Subjective 2 Subjective: She is improving, still coughing, productive cough, still wheezing. Vitals/I&O/Wt Last Vital Signs Temp 97.6 F 07/21/23 19:23 Pulse 89 07/21/23 19:53 Resp 18 07/21/23 19:53 BP 103/66 07/21/23 19:23 Pulse Ox 91 07/21/23 19:53 O2 Del Method Nasal Cannula 07/21/23 19:53 O2 Flow Rate 4 07/21/23 19:53 FiO2 50 07/21/23 04:00 07/21/23 07/21/23 07/21/23 06:59 14:59 22:59 Intake Total 530 / 3300 890 / 890 780.000 / 1670.000 Balance 530 / 3300 890 / 890 780.000 / 1670.000 Weight last 48 hrs Weight 69.031 kg Weight 68.039 kg Physical Exam 2 Narrative: Accompanied by family. Const: COMMON NORMALS: patient oriented x3 and alert GENERAL APPEARANCE: c ooperative ORIENTATION/CONSCIOUSNESS: Yes awake OTHER: Nasal cannula. HENMT: COMMON NORMALS: oropharynx normal Neck/C-Spine: COMMON NORMALS: no JVD Resp: COMMON NORMALS: normal respiratory effort and clear to auscultation bilaterally AUSCULTATION: clear to auscultation bilaterally, wheezes (L) and diminished lung sounds Cardio: COMMON NORMALS: no JVD, regular rhythm, S1 normal heart sound present, S2 normal heart sound present and No murmurs present (Cardio) RHYTHM: regular rhythm HEART SOUNDS: S1 normal heart sound present and S2 normal heart sound present GI: COMMON NORMALS: Normal to inspection, nondistended, normoactive bowel sounds present, Soft to palpation and non-tender INSPECTION: Yes abdominal distension PALPATION: Yes Soft to palpation Extremity: COMMON NORMALS: no joint enlargement and no pedal edema Neuro: COMMON NORMALS: patient oriented x3 and moves all extremities S ENSORIUM/ORIENTATION: Yes alert Skin: COMMON NORMALS: no rashes or lesions noted GENERAL SKIN EXAM: no rashes or lesions noted Data 07/21/23 01:52 07/21/23 01:52 A&P Assessment and plan (1) Acute respiratory failure with hypoxia and hypercapnia: Improving. She remains lucid, awake and alert. She was on 6 L of oxygen this morning. However, saturation on 6 L is obtained 95%. We decreased oxygen down to 5 L, she is still saturating around 94%. Continue to titrate down as tolerating, target saturation 88-92%. She still coughing and wheezing, however, that is not improved. Will continue for now with IV steroid, monitor for hypoglycemia, hypertension. Today with ELISA, creatinine up to 1.4. Does take some NSAIDs at home, but discussed with her possible effect of vancomycin as well. Vanc trough reviewed, elevated, but has been repeated and is at 22.8, possibly spurious intial result. On MRSA coverage due to recent hospitalization, risk hospital-acquired infection. MRSA PCR still not collected, requesting to go back to the swab. If negative hopefully may be able to discontinue vancomycin. Vancomycin dose has been decreased. Recheck renal function. Reviewed vitals, CBC, BMP, blood culture. Sputum culture uncollected. MRSA PCR ordered. Severe exacerbation of COPD. (2) Chest tightness: So far resolved. Reassess. No chest pain or pressure today. Troponin series reviewed, mild elevation without rise. D-dimer reviewed, unremarkable. She feels somewhat of a band around her chest, difficult to get a deep breath. Some pain on inspiration. Suspect secondary to her dyspnea, tachypnea, chest x- ray unremarkable. Will obtain D-dimer, troponin EKG series. Monitor on telemetry. He denies history of CAD, [place] or stenting. Denies history of VTE. Lovenox VT prophylaxis. (3) Upper GI bleeding: Reviewed CBC, some decrease in hemoglobin down to 11. Reviewed platelets, normal. Without hematemesis. Lovenox has been held. Is still on IV steroids, continue IV PPI twice daily. Recheck CBC. Will benefit from referral for EGD. Reported blood suctioned on gastric suctioning repeatedly during prior hospitalization. Has not had endoscopy. Does take losartan at home. Discussed with her and family, we held Lovenox, increased Protonix to twice daily. Plan HTN: Monitor blood pressures GERD: Continue PPI Anxiety: Continue Wellbutrin Attestations 2 Medical Necessity Statement*: Continue assessment and management of severe exacerbation of COPD, recurrent after recent hospitalization, acute anemia with recent upper GI bleed. and High MDM includes described risk of complication, morbidity or mortality of management as documented Diagnoses Acute respiratory failure with hypoxia and hypercapnia J96.01; J96.02 Chest tightness R07.89 Upper GI bleeding K92.2
[2023-07-22] VITALS (15 sets, daily range): BP systolic 118–159; BP diastolic 69–82; PULSE 70–89; RESP 16–18; TEMP 36.4–37.2; O2SAT 90–96
[2023-07-22] MEDS: ipratropium-albuterol 3 mL Neb INHALATION ×4 (02:15→20:04)
[2023-07-22] MEDS: methylPREDNISolone sod succ 125 mg/2 mL INJ 60 MG IVP ×4 (02:33→23:07)
[2023-07-22 05:24] LABS: Basophils % 0.1 %; Hematocrit 33.5 % (36-47); Lymphocytes # 0.3 10^3/uL (0.8-4.8); Lymphocytes % 3.1 %; Mean Corpuscular HGB Conc 31.6 g/dL (30-55); Mean Corpuscular Hemoglobin 30.5 pg (27-33); Mean Corpuscular Volume 96.3 fl (85-98); Mean Platelet Volume 10.9 fL (7.4-10.4); Monocytes # 0.3 10^3/uL (0.2-0.9); Monocytes % 2.8 %; Neutrophils # 9.27 10^3/uL (1.8-7.7); Neutrophils % 93.1 %; Nucleated Red Blood Cells % 0 %; Platelet Count 176 10^3/cmm (157-399); Red Blood Count 3.48 10^6/uL (3.85-5.65); Red Cell Distribution Width 15.2 % (12.1-15.1); White Blood Count 9.96 10^3/uL (3.29-11.43)
[2023-07-22 05:44] LABS: Anion Gap 8.5 (5-19); Blood Urea Nitrogen 28 mg/dL (6-20); Calcium 8.3 mg/dL (8.5-10.5); Carbon Dioxide 36 mmol/L (22-29); Chloride 98 mmol/L (98-107); Creatinine Clr Calc Pharmacy 33.1337; Glomerular Filtration Rate 31.3 mL/min (90-130); Glucose 169 mg/dL (65-115); Osmolality Calculated 297 mOsm/kg (285-295); Potassium 3.5 mmol/L (3.5-5.1); Sodium 139 mmol/L (136-145)
[2023-07-22] MEDS: buPROPion XL (24 HR) 150 mg Tablet PO (06:03)
[2023-07-22] MEDS: piperacillin-tazobactam 3.375 GM in sodium chloride 0.9% (plus) 50 ML IV ×3 (06:03→21:40)
[2023-07-22] MEDS: pantoprazole 40 mg SDV IVP ×2 (11:38→23:08)
[2023-07-22] MEDS: FUROsemide 40 mg Tablet PO (12:15)
[2023-07-22] MEDS: acetaminophen 325 mg Tablet 650 MG PO (15:00)
--- NOTE | 2023-07-22 17:03 | P.PN_ITS ---
Subjective 2 Subjective: Hospital course, labs appreciated. Seen with family members at bedside. Patient is down to 2 to 3 L of oxygen supplementation. States she is still getting out of breath on minimal ambulation otherwise she seems to be going back to her baseline oxygenation and breathing. States she usually drinks a lot of water and liquids more so high amount of Coke during the day. States she has had at least 3 cans of water since last night. Vitals/I&O/Wt Last Vital Signs Temp 98 F 07/22/23 16:00 Pulse 76 07/22/23 16:00 Resp 18 07/22/23 16:00 BP 159/69 07/22/23 16:00 Pulse Ox 96 07/22/23 16:00 O2 Del Method Nasal Cannula 07/22/23 13:21 O2 Flow Rate 4 07/22/23 13:21 FiO2 4 07/22/23 08:00 07/22/23 07/22/23 07/22/23 06:59 14:59 22:59 Intake Total 530 / 2680.000 650 / 650 Balance 530 / 2680.000 650 / 650 Weight last 48 hrs Weight 70.449 kg Weight 69.031 kg Physical Exam 2 Narrative: Accompanied by family. Const: COMMON NORMALS: patient oriented x3 and alert GENERAL APPEARANCE: c ooperative ORIENTATION/CONSCIOUSNESS: Yes awake OTHER: Nasal cannula. HENMT: COMMON NORMALS: oropharynx normal Neck/C-Spine: COMMON NORMALS: no JVD Resp: COMMON NORMALS: normal respiratory effort and clear to auscultation bilaterally AUSCULTATION: clear to auscultation bilaterally, wheezes (L) and diminished lung sounds Cardio: COMMON NORMALS: no JVD, regular rhythm, S1 normal heart sound present, S2 normal heart sound present and No murmurs present (Cardio) RHYTHM: regular rhythm HEART SOUNDS: S1 normal heart sound present and S2 normal heart sound present GI: COMMON NORMALS: Normal to inspection, nondistended, normoactive bowel sounds present, Soft to palpation and non-tender INSPECTION: Yes abdominal distension PALPATION: Yes Soft to palpation Extremity: COMMON NORMALS: no joint enlargement and no pedal edema Neuro: COMMON NORMALS: patient oriented x3 and moves all extremities S ENSORIUM/ORIENTATION: Yes alert Skin: COMMON NORMALS: no rashes or lesions noted GENERAL SKIN EXAM: no rashes or lesions noted Data 07/22/23 04:52 03/18/24 04:52 A&P Assessment and plan (1) Acute respiratory failure with hypoxia and hypercapnia: Most likely in setting of COPD exacerbation. Patient was recently intubated at an outside hospital. Oxygen supplementation keeping saturation around 88%. Baseline around 4 to 5 L. Respiratory viral panel negative on admission. Follows up with pulmonology as an outpatient. Follow-up sputum culture. MRSA swab results pending. Check urine Legionella and bacterial antigen. For now continue with IV Zosyn. In the past MRSA swab negative. So we will discontinue vancomycin. Wean Solu-Medrol to 60 mg every 8 hourly. Continue with DuoNebs every 6 hour, add Pulmicort twice daily. Aggressive pulmonary toilet with incentive spirometry. Out of bed to chair. Last echocardiogram done in 2020 shows a normal EF with prominent trabeculations of RV apex. No RVSP documented. Cannot rule out mild cor pulmonale. Start on oral Lasix 40 mg daily. Strict input output charting. Plan for net negative fluid balance. Fluid restriction up to 1500 cc. Discussed in detail with the patient regarding fluid restriction even going forward. (2) Chest tightness: So far resolved. Reassess. No chest pain or pressure today. Troponin series reviewed, mild elevation without rise. D-dimer reviewed, unremarkable. She feels somewhat of a band around her chest, difficult to get a deep breath. Some pain on inspiration. Suspect secondary to her dyspnea, tachypnea, chest x- ray unremarkable. Will obtain D-dimer, troponin EKG series. Monitor on telemetry. He denies history of CAD, [place] or stenting. Denies history of VTE. Lovenox VT prophylaxis. (3) Upper GI bleeding: Could be in setting of gastritis while being on high-dose of steroids. Possible history of hematemesis at recent hospitalization. Continue with Protonix twice daily. Add Carafate ACHS. Heparin 5000 every 12 hourly for DVT prophylaxis. Monitor CBC daily. Plan HTN: Monitor blood pressures. Goal blood pressure less than 140/90 mmHg. GERD: Continue PPI Anxiety: Continue Wellbutrin Will request hospitalization documentation from previous hospitalization recently. Full code Regular diet Protonix with be sufficient for PUD prophylaxis Heparin 5000 every 12 hourly for DVT prophylaxis. Attestations 2 Medical Necessity Statement*: Requires further hospitalization for management of respiratory failure in setting of COPD exacerbation leading to hypoxic and hypercapnic respiratory failure Diagnoses Acute respiratory failure with hypoxia and hypercapnia J96.01; J96.02 Chest tightness R07.89 Upper GI bleeding K92.2
[2023-07-22] MEDS: heparin 5,000 unit/mL INJ 1 mL 5000 UNIT SUBCUT (17:46)
[2023-07-22] MEDS: budesonide 0.5 mg/2 mL Neb INHALATION (20:04)
[2023-07-22] MEDS: sucralfate 1 gm/10 mL Oral Liq UDC PO (21:41)
[2023-07-23] VITALS (19 sets, daily range): BP systolic 100–164; BP diastolic 62–99; PULSE 66–94; RESP 16–20; TEMP 36.7–36.9; O2SAT 90–98
[2023-07-23] MEDS: morphine 4 mg/mL SDV 1 mL 2 MG IVP (00:24)
[2023-07-23] MEDS: lidocaine 2% viscous 15 ML, aluminum-mag hydrox-simethicon 30 ML, sucralfate oral liq 1 GM PO (00:27)
[2023-07-23] MEDS: ondansetron 2 mg/ML SDV 2 mL 4 MG IVP (00:35)
[2023-07-23] MEDS: ipratropium-albuterol 3 mL Neb INHALATION ×4 (02:11→21:05)
[2023-07-23 05:14] LABS: Basophils % 0.1 %; Hematocrit 36.1 % (36-47); Lymphocytes # 0.2 10^3/uL (0.8-4.8); Mean Corpuscular Hemoglobin 29.9 pg (27-33); Mean Corpuscular Volume 96.3 fl (85-98); Mean Platelet Volume 10.9 fL (7.4-10.4); Monocytes # 0.6 10^3/uL (0.2-0.9); Monocytes % 4.8 %; Neutrophils % 92.6 %; Nucleated Red Blood Cells % 0 %; Platelet Count 167 10^3/cmm (157-399); Red Blood Count 3.75 10^6/uL (3.85-5.65); Red Cell Distribution Width 14.8 % (12.1-15.1); White Blood Count 11.78 10^3/uL (3.29-11.43)
[2023-07-23] MEDS: heparin 5,000 unit/mL INJ 1 mL 5000 UNIT SUBCUT ×2 (05:27→17:48)
[2023-07-23] MEDS: buPROPion XL (24 HR) 150 mg Tablet PO (05:27)
[2023-07-23] MEDS: piperacillin-tazobactam 3.375 GM in sodium chloride 0.9% (plus) 50 ML IV ×3 (05:27→21:05)
[2023-07-23] MEDS: sucralfate 1 gm/10 mL Oral Liq UDC PO ×4 (05:28→21:05)
[2023-07-23 05:53] LABS: Alanine Aminotransferase 108 U/L (0-33); Albumin Level 3.6 g/dL (3.5-5.2); Alkaline Phosphatase 52 U/L (35-105); Aspartate Amino Transferase 129 U/L (0-32); Blood Urea Nitrogen 30 mg/dL (6-20); Calcium 8.4 mg/dL (8.5-10.5); Carbon Dioxide 39 mmol/L (22-29); Chloride 94 mmol/L (98-107); Globulin 1.7 g/dL (1.3-4.6); Glomerular Filtration Rate 39.2 mL/min (90-130); Glucose 147 mg/dL (65-115); Osmolality Calculated 305 mOsm/kg (285-295); Sodium 143 mmol/L (136-145); Total Bilirubin 0.4 mg/dL (0.15-1.2); Total Protein 5.3 g/dL (6.6-8.7)
[2023-07-23 06:12] LABS: Anion Gap 13.9 (5-19); Creatinine Clr Calc Pharmacy 39.2715; Potassium 3.9 mmol/L (3.5-5.1)
[2023-07-23] MEDS: methylPREDNISolone sod succ 125 mg/2 mL INJ 60 MG IVP ×2 (06:14→17:48)
[2023-07-23] MEDS: budesonide 0.5 mg/2 mL Neb INHALATION ×2 (07:33→21:05)
[2023-07-23] MEDS: pantoprazole 40 mg SDV IVP ×2 (10:53→23:08)
[2023-07-23] MEDS: FUROsemide 10 mg/mL SDV 4mL 40 MG IVP (11:34)
--- NOTE | 2023-07-23 13:01 | PC.NURSE ---
walked pt in room, after approx. 3-4 minutes O2 sats went down to 88%. Pt c/o SOB.
--- NOTE | 2023-07-23 16:24 | P.PN_ITS ---
Subjective 2 Subjective: Overnight patient had episode of chest heaviness with difficulty in breathing for which she received a GI cocktail. Patient states her symptoms improved after getting IV morphine. States these are the symptoms she has prior to coming to the hospital over the last 2 admissions. For now she states she is feeling better than yesterday. Continues to remain on stable oxygenation, getting less tachypneic and out of breath on exertion and conversation. Multiple family members at bedside. Vitals/I&O/Wt Last Vital Signs Temp 98.3 F 07/23/23 15:46 Pulse 75 07/23/23 15:46 Resp 17 07/23/23 15:46 BP 100/62 07/23/23 15:46 Pulse Ox 96 07/23/23 15:46 O2 Del Method Nasal Cannula 07/23/23 15:46 O2 Flow Rate 4 07/23/23 13:39 FiO2 40 07/23/23 04:00 07/23/23 07/23/23 07/23/23 06:59 14:59 22:59 Intake Total 410 / 2070 610 / 610 Output Total 1000 / 1000 Balance -590 / 1070 610 / 610 Weight last 48 hrs Weight 67.132 kg Weight 70.449 kg Physical Exam 2 Narrative: Accompanied by family. Const: COMMON NORMALS: patient oriented x3 and alert GENERAL APPEARANCE: c ooperative ORIENTATION/CONSCIOUSNESS: Yes awake OTHER: Nasal cannula. HENMT: COMMON NORMALS: oropharynx normal Neck/C-Spine: COMMON NORMALS: no JVD Resp: COMMON NORMALS: normal respiratory effort and clear to auscultation bilaterally AUSCULTATION: clear to auscultation bilaterally, wheezes (L) and diminished lung sounds Cardio: COMMON NORMALS: no JVD, regular rhythm, S1 normal heart sound present, S2 normal heart sound present and No murmurs present (Cardio) RHYTHM: regular rhythm HEART SOUNDS: S1 normal heart sound present and S2 normal heart sound present GI: COMMON NORMALS: Normal to inspection, nondistended, normoactive bowel sounds present, Soft to palpation and non-tender INSPECTION: Yes abdominal distension PALPATION: Yes Soft to palpation Extremity: COMMON NORMALS: no joint enlargement and no pedal edema Neuro: COMMON NORMALS: patient oriented x3 and moves all extremities S ENSORIUM/ORIENTATION: Yes alert Skin: COMMON NORMALS: no rashes or lesions noted GENERAL SKIN EXAM: no rashes or lesions noted Data 07/23/23 05:02 07/23/23 05:02 Micro: Microbiology 07/18/23 14:47 Blood Culture - Final Blood NO GROWTH AFTER 5 DAYS 07/18/23 14:40 Blood Culture - Final Blood NO GROWTH AFTER 5 DAYS A&P Assessment and plan (1) Acute respiratory failure with hypoxia and hypercapnia: Most likely in setting of COPD exacerbation. Patient was recently intubated at an outside hospital. Oxygen supplementation keeping saturation around 88%. Baseline around 4 to 5 L. Respiratory viral panel negative on admission. Follows up with pulmonology as an outpatient. Follow-up sputum culture. MRSA swab results pending. Check urine Legionella and bacterial antigen. For now continue with IV Zosyn. In the past MRSA swab negative. So we will discontinue vancomycin. Wean Solu-Medrol to 60 mg every 8 hourly. Continue with DuoNebs every 6 hour, add Pulmicort twice daily. Aggressive pulmonary toilet with incentive spirometry. Out of bed to chair. Last echocardiogram done in 2020 shows a normal EF with prominent trabeculations of RV apex. No RVSP documented. Cannot rule out mild cor pulmonale. Start on oral Lasix 40 mg daily. Strict input output charting. Plan for net negative fluid balance. Fluid restriction up to 1500 cc. Discussed in detail with the patient regarding fluid restriction even going forward. (2) Chest tightness: So far resolved. Reassess. No chest pain or pressure today. Troponin series reviewed, mild elevation without rise. D-dimer reviewed, unremarkable. She feels somewhat of a band around her chest, difficult to get a deep breath. Some pain on inspiration. Suspect secondary to her dyspnea, tachypnea, chest x- ray unremarkable. Will obtain D-dimer, troponin EKG series. Monitor on telemetry. He denies history of CAD, MS or stenting. Denies history of VTE. Lovenox VT prophylaxis. (3) Upper GI bleeding: Could be in setting of gastritis while being on high-dose of steroids. Possible history of hematemesis at recent hospitalization. Continue with Protonix twice daily. Add Carafate ACHS. Heparin 5000 every 12 hourly for DVT prophylaxis. Monitor CBC daily. Plan HTN: Monitor blood pressures. Goal blood pressure less than 140/90 mmHg. GERD: Continue PPI Anxiety: Continue Wellbutrin Plan for today: Appreciate documentation from recent hospitalization at [facility]. At that hospitalization patient had cardiogenic shock and required intubation. Cultures from that hospitalization were negative. Flu and COVID-19 were negative. Continue with oxygen supplementation keeping saturation over 88%. Appreciate echocardiogram. IV Lasix 40 mg one-time. Will plan to get patient after being hydrated as possible given concern for cor pulmonale. Continue with IV Zosyn. Follow-up culture results and MRSA swab. Holding off on vancomycin for now. Wean down Solu-Medrol to 60 mg twice daily. Ambulate patient while monitoring heart rate and oxygen supplementation. Full code Regular diet Protonix with be sufficient for PUD prophylaxis Heparin 5000 every 12 hourly for DVT prophylaxis. Attestations 2 Medical Necessity Statement*: Requires further hospitalization for management of respiratory failure in setting of COPD exacerbation Diagnoses Acute respiratory failure with hypoxia and hypercapnia J96.01; J96.02 Chest tightness R07.89 Upper GI bleeding K92.2
--- NOTE | 2023-07-23 17:10 | USCV_ITS ---
Estelle Pascual Age: 52 Gender: F : 1970 Exam Date: 07/23/2023 01:39 Ordering Phys: Haider Velasco MD Technologist: GERA Exam Location: [facility] – [place] Indication: order says chf? right-sided heart strain? Pt presenting in ER hypoxic 65%, after treatment in ER 85%. O2 dependent 3L. BP: 159 / 69 HR: 71 Rhythm: Sinus Technical Quality: Adequate MEASUREMENTS (Male / Female) Normal Values 2D ECHO LV Diastolic Diameter PLAX 4.1 cm 4.2 - 5.9 / 3.9 - 5.3 cm LV Systolic Diameter PLAX 2.7 cm IVS Diastolic Thickness 1.1 cm 0.6 - 1.0 / 0.6 - 0.9 cm IVS Systolic Thickness 1.5 cm LVPW Diastolic Thickness 1.3 cm 0.6 - 1.0 / 0.6 - 0.9 cm LVPW Systolic Thickness 1.6 cm LVOT Diameter 1.7 cm LV Ejection Fraction 2D Teich 64.3 % LV Ejection Fraction MOD 2C 62.8 % LV Ejection Fraction 2C AL 64.0 % LA Diameter 3.3 cm Aorta at Sinotubular Diameter 2.7 cm IVC Diameter 1.6 cm M-MODE LA Ao Ratio MM 1.1 AV Cusp Separation MM 1.5 cm DOPPLER AV Peak Velocity 157.0 cm/s LVOT Peak Velocity 86.0 cm/s AV Area Cont Eq vti 1.4 cm squared AV Area Cont Eq pk 1.2 cm squared MV Peak Velocity 103.0 cm/s MV Area PHT 3.2 cm squared Mitral E to A Ratio 1.4 TR Peak Velocity 226.0 cm/s TR Peak Gradient 20.4 mmHg TV Peak E Velocity 72.0 cm/s Right Atrial Pressure 3.0 mmHg Pulmonary Artery Systolic Pressu 23.4 mmHg PV Peak Velocity 98.0 cm/s FINDINGS Left Ventricle Left ventricle is normal in size. LV systolic function is normal with EF of 55 to 60%. No regional wall motion abnormalities are seen. Right Ventricle Normal in size and function Right Atrium Normal in size Left Atrium Normal in size Mitral Valve Structurally normal mitral valve. Mild mitral regurgitation. Aortic Valve Structurally normal aortic valve.No significant stenosis or regurgitation. Tricuspid Valve Trace tricuspid regurgitation. Insufficient TR jet to calculate RVSP. Pulmonic Valve Not well visualized Pericardium Normal Aorta Normal in size IVC Appears to be normal CONCLUSIONS LV systolic function is normal with EF of 55 to 60%. Mild mitral regurgitation. Trace tricuspid regurgitation. Compared to prior echocardiogram from 2020, no significant changes are seen Iriwn Barahona MD (Electronically Signed) Final Date: 23 July 2023 12:36 S
[2023-07-24] VITALS (15 sets, daily range): BP systolic 103–121; BP diastolic 64–77; PULSE 62–89; RESP 16–20; TEMP 36.3–37; O2SAT 89–96
[2023-07-24] MEDS: ipratropium-albuterol 3 mL Neb INHALATION ×4 (01:48→20:52)
[2023-07-24 05:37] LABS: Hematocrit 35.2 % (36-47); Lymphocytes # 0.4 10^3/uL (0.8-4.8); Lymphocytes % 4.2 %; Mean Corpuscular Hemoglobin 30.2 pg (27-33); Mean Corpuscular Volume 97.5 fl (85-98); Mean Platelet Volume 11.3 fL (7.4-10.4); Monocytes # 0.4 10^3/uL (0.2-0.9); Monocytes % 4.6 %; Neutrophils # 8.14 10^3/uL (1.8-7.7); Neutrophils % 90.5 %; Nucleated Red Blood Cells % 0 %; Platelet Count 168 10^3/cmm (157-399); Red Blood Count 3.61 10^6/uL (3.85-5.65); Red Cell Distribution Width 14.7 % (12.1-15.1); White Blood Count 8.99 10^3/uL (3.29-11.43)
[2023-07-24] MEDS: heparin 5,000 unit/mL INJ 1 mL 5000 UNIT SUBCUT ×2 (06:10→17:07)
[2023-07-24] MEDS: piperacillin-tazobactam 3.375 GM in sodium chloride 0.9% (plus) 50 ML IV ×3 (06:10→22:50)
[2023-07-24] MEDS: sucralfate 1 gm/10 mL Oral Liq UDC PO ×4 (06:10→19:58)
[2023-07-24] MEDS: buPROPion XL (24 HR) 150 mg Tablet PO (06:12)
[2023-07-24 06:14] LABS: Alanine Aminotransferase 80 U/L (0-33); Albumin Level 3.5 g/dL (3.5-5.2); Alkaline Phosphatase 44 U/L (35-105); Blood Urea Nitrogen 33 mg/dL (6-20); Calcium 8.7 mg/dL (8.5-10.5); Carbon Dioxide 39 mmol/L (22-29); Chloride 94 mmol/L (98-107); Globulin 1.7 g/dL (1.3-4.6); Glomerular Filtration Rate 42.7 mL/min (90-130); Glucose 152 mg/dL (65-115); Osmolality Calculated 302 mOsm/kg (285-295); Sodium 141 mmol/L (136-145); Total Bilirubin 0.3 mg/dL (0.15-1.2); Total Protein 5.2 g/dL (6.6-8.7)
[2023-07-24 06:20] LABS: Anion Gap 12.1 (5-19); Aspartate Amino Transferase 23 U/L (0-32); Potassium 4.1 mmol/L (3.5-5.1)
[2023-07-24] MEDS: methylPREDNISolone sod succ 125 mg/2 mL INJ 60 MG IVP (07:57)
[2023-07-24] MEDS: budesonide 0.5 mg/2 mL Neb INHALATION ×2 (09:28→20:53)
[2023-07-24] MEDS: pantoprazole 40 mg SDV IVP ×2 (10:45→22:50)
[2023-07-24] MEDS: FUROsemide 40 mg Tablet PO (12:02)
--- NOTE | 2023-07-24 14:01 | P.PN_ITS ---
Subjective 2 Subjective: No acute vents overnight. Patient denies any nausea, vomiting, headache. Sitting comfortably in bed on 4 l of oxygen supplementation. Yesterday walked around the room with saturation following down to 88% with episodes of dizziness. Vitals/I&O/Wt Last Vital Signs Temp 98.3 F 07/24/23 12:00 Pulse 86 07/24/23 12:00 Resp 16 07/24/23 12:00 BP 111/70 07/24/23 12:00 Pulse Ox 92 07/24/23 12:00 O2 Del Method Nasal Cannula 07/24/23 12:00 O2 Flow Rate 4 07/24/23 09:30 FiO2 40 07/24/23 04:45 07/23/23 07/24/23 07/24/23 22:59 06:59 14:59 Intake Total 230 / 840 150 / 990 650 / 650 Balance 230 / 840 150 / 990 650 / 650 Weight last 48 hrs Weight 68.901 kg Weight 67.132 kg Physical Exam 2 Narrative: Accompanied by family. Const: COMMON NORMALS: patient oriented x3 and alert GENERAL APPEARANCE: c ooperative ORIENTATION/CONSCIOUSNESS: Yes awake OTHER: Nasal cannula. HENMT: COMMON NORMALS: oropharynx normal Neck/C-Spine: COMMON NORMALS: no JVD Resp: COMMON NORMALS: normal respiratory effort and clear to auscultation bilaterally AUSCULTATION: clear to auscultation bilaterally, wheezes (L) and diminished lung sounds Cardio: COMMON NORMALS: no JVD, regular rhythm, S1 normal heart sound present, S2 normal heart sound present and No murmurs present (Cardio) RHYTHM: regular rhythm HEART SOUNDS: S1 normal heart sound present and S2 normal heart sound present GI: COMMON NORMALS: Normal to inspection, nondistended, normoactive bowel sounds present, Soft to palpation and non-tender INSPECTION: Yes abdominal distension PALPATION: Yes Soft to palpation Extremity: COMMON NORMALS: no joint enlargement and no pedal edema Neuro: COMMON NORMALS: patient oriented x3 and moves all extremities S ENSORIUM/ORIENTATION: Yes alert Skin: COMMON NORMALS: no rashes or lesions noted GENERAL SKIN EXAM: no rashes or lesions noted Data 07/24/23 05:08 07/24/23 05:08 Micro: Microbiology 07/18/23 14:47 Blood Culture - Final Blood NO GROWTH AFTER 5 DAYS 07/18/23 14:40 Blood Culture - Final Blood NO GROWTH AFTER 5 DAYS A&P Assessment and plan (1) Acute respiratory failure with hypoxia and hypercapnia: Most likely in setting of COPD exacerbation. Patient was recently intubated at an outside hospital. Oxygen supplementation keeping saturation around 88%. Baseline around 4 to 5 L. Respiratory viral panel negative on admission. Follows up with pulmonology as an outpatient. Follow-up sputum culture. MRSA swab results pending. Check urine Legionella and bacterial antigen. For now continue with IV Zosyn. In the past MRSA swab negative. So we will discontinue vancomycin. Wean Solu-Medrol to 60 mg every 8 hourly. Continue with DuoNebs every 6 hour, add Pulmicort twice daily. Aggressive pulmonary toilet with incentive spirometry. Out of bed to chair. Last echocardiogram done in 2020 shows a normal EF with prominent trabeculations of RV apex. No RVSP documented. Cannot rule out mild cor pulmonale. Start on oral Lasix 40 mg daily. Strict input output charting. Plan for net negative fluid balance. Fluid restriction up to 1500 cc. Discussed in detail with the patient regarding fluid restriction even going forward. (2) Chest tightness: So far resolved. Reassess. No chest pain or pressure today. Troponin series reviewed, mild elevation without rise. D-dimer reviewed, unremarkable. She feels somewhat of a band around her chest, difficult to get a deep breath. Some pain on inspiration. Suspect secondary to her dyspnea, tachypnea, chest x- ray unremarkable. Will obtain D-dimer, troponin EKG series. Monitor on telemetry. He denies history of CAD, [place] or stenting. Denies history of VTE. Lovenox VT prophylaxis. (3) Upper GI bleeding: Could be in setting of gastritis while being on high-dose of steroids. Possible history of hematemesis at recent hospitalization. Continue with Protonix twice daily. Add Carafate ACHS. Heparin 5000 every 12 hourly for DVT prophylaxis. Monitor CBC daily. Plan HTN: Monitor blood pressures. Goal blood pressure less than 140/90 mmHg. GERD: Continue PPI Anxiety: Continue Wellbutrin Plan for today: Patient could not tolerate 6-minute walk test yesterday with saturation falling down to 88% and having episode of dizziness. Continue with nebulization treatment. Renal functions continue to improve. Creatinine down to 1.3. Start on 40 mg of oral Lasix daily. Continue with fluid restriction. Wean Solu-Medrol 60 mg IV daily from twice daily. Cultures have remained negative. Continue Zosyn to finish 7-day course with last dose on 07/24. Appreciate echocardiogram results. No concerns for regional wall motion or systolic heart failure for now. Plan to repeat walking today possibly in the [place]. Continue to wean oxygen supplementation keeping saturation around 88%. Full code Regular diet Protonix with be sufficient for PUD prophylaxis Heparin 5000 every 12 hourly for DVT prophylaxis. Attestations 2 Medical Necessity Statement*: Requires further hospitalization for management of hypoxic respiratory failure in setting of COPD exacerbation Diagnoses Acute respiratory failure with hypoxia and hypercapnia J96.01; J96.02 Chest tightness R07.89 Upper GI bleeding K92.2
[2023-07-24 14:30] LABS: Methicillin-Resist S.aureu PCR NOT DETECTED (NOT DETECTED)
--- NOTE | 2023-07-24 14:56 | PC.NURSE ---
Walked pt 305 ft on 4LO2, dropped to 80% sats. When stopped sats quickly resumed into 90%. Pt c/o dizziness with walking.
[2023-07-25] VITALS (10 sets, daily range): BP systolic 116–122; BP diastolic 75–80; PULSE 64–90; RESP 16–18; TEMP 36.6–36.8; O2SAT 79–97
[2023-07-25] MEDS: ipratropium-albuterol 3 mL Neb INHALATION ×3 (02:22→14:21)
[2023-07-25 05:55] LABS: Basophils % 0.2 %; Eosinophils # 0.1 10^3/uL (0.0-0.8); Eosinophils % 0.8 %; Hematocrit 35.7 % (36-47); Lymphocytes # 1.7 10^3/uL (0.8-4.8); Lymphocytes % 14.3 %; Mean Corpuscular HGB Conc 30.8 g/dL (30-55); Mean Corpuscular Hemoglobin 30.1 pg (27-33); Mean Corpuscular Volume 97.8 fl (85-98); Monocytes # 0.8 10^3/uL (0.2-0.9); Monocytes % 6.6 %; Neutrophils # 9.25 10^3/uL (1.8-7.7); Neutrophils % 77.4 %; Nucleated Red Blood Cells % 0 %; Platelet Count 148 10^3/cmm (157-399); Red Blood Count 3.65 10^6/uL (3.85-5.65); Red Cell Distribution Width 14.8 % (12.1-15.1); White Blood Count 11.95 10^3/uL (3.29-11.43)
[2023-07-25] MEDS: sucralfate 1 gm/10 mL Oral Liq UDC PO ×2 (05:59→11:31)
[2023-07-25] MEDS: heparin 5,000 unit/mL INJ 1 mL 5000 UNIT SUBCUT (05:59)
[2023-07-25] MEDS: buPROPion XL (24 HR) 150 mg Tablet PO (05:59)
[2023-07-25] MEDS: piperacillin-tazobactam 3.375 GM in sodium chloride 0.9% (plus) 50 ML IV (06:00)
[2023-07-25 06:13] LABS: Alanine Aminotransferase 60 U/L (0-33); Albumin Level 3.4 g/dL (3.5-5.2); Alkaline Phosphatase 42 U/L (35-105); Anion Gap 11.2 (5-19); Aspartate Amino Transferase 13 U/L (0-32); Blood Urea Nitrogen 32 mg/dL (6-20); Calcium 8.3 mg/dL (8.5-10.5); Carbon Dioxide 40 mmol/L (22-29); Chloride 92 mmol/L (98-107); Globulin 1.8 g/dL (1.3-4.6); Glomerular Filtration Rate 39.2 mL/min (90-130); Glucose 101 mg/dL (65-115); Osmolality Calculated 297 mOsm/kg (285-295); Potassium 3.2 mmol/L (3.5-5.1); Sodium 140 mmol/L (136-145); Total Bilirubin 0.2 mg/dL (0.15-1.2); Total Protein 5.2 g/dL (6.6-8.7)
[2023-07-25] MEDS: FUROsemide 40 mg Tablet PO (08:38)
[2023-07-25] MEDS: methylPREDNISolone sod succ 125 mg/2 mL INJ 60 MG IVP (08:39)
[2023-07-25] MEDS: budesonide 0.5 mg/2 mL Neb INHALATION (10:15)
[2023-07-25] MEDS: pantoprazole 40 mg SDV IVP (11:31)
--- NOTE | 2023-07-25 13:31 | PM.DCS ---
Discharge Providers Date of Admission: 07/18/23 15:30 Date of Discharge: July 25, 2023 Attending Provider at Admission: Saleem Manley Attending Provider at Discharge: Haider Velasco MD Primary Care Provider: Reena López MD Diagnoses at Discharge Discharge Diagnosis (1) Acute respiratory failure with hypoxia and hypercapnia: Status: Acute (2) Chest tightness: Status: Acute (3) Upper GI bleeding: Status: Acute Reason for Visit Reason for Visit: sob Brief History: History as per HPI: 52-year lady with history of COPD, has a BiPAP machine at home which she normally uses with sleep, on continuous oxygen 3 L, has a nebulizer as well, was recently admitted from Saturday to Saturday for management of COPD exacerbation discharged with a prednisone taper gradually started getting more short of breath again, this did not improve despite trying to use her BiPAP at home. She started also becoming more sleepy and her daughters try to put the BiPAP on her, but without improvement she was taken for evaluation in ED. On presentation she was lethargic, hypoxic, initially on nonrebreather, ABG with severe respiratory acidosis, pH 7.16, CO2 120. Was started on BiPAP. She received a breathing treatment, a dose of Decadron, and with recent hospitalization empirically received Zosyn and vancomycin. She is slightly easier to awaken, ABG with partial improvement 7.25/98.8./53.2. On 40% FiO2. Hospital Course Hospital Course Patient was admitted to the hospital for further management of acute hypoxic and hypercapnic respiratory failure. She was started on nebulization treatment, IV antibiotics, IV steroids given her recent hospitalization, respiratory failure requiring intubation at [place]. She responded very slowly to the treatment but gradually improved. Currently she has been at her baseline oxygen supplementation at rest for the last 2 to 3 days. Gradually she has been able to walk around the hallway at her baseline respiratory effort requiring up to 5 to 6 L of oxygen. Her hospitalization has otherwise remained unremarkable. Her culture results during hospitalization remain negative. She has been discharged in medically stable condition on oral steroid taper, nebulization treatment, daily Lasix. She will benefit from pulmonary rehab for which a referral is given. Discharge plan were discussed in detail with the patient and she verbalized understanding. Physical Exam Narrative: Accompanied by family. Const: COMMON NORMALS: patient oriented x3 and alert GENERAL APPEARANCE: cooperative ORIENTATION/CONSCIOUSNESS: Yes awake OTHER: Nasal cannula. HENMT: COMMON NORMALS: oropharynx normal Neck/C-Spine: COMMON NORMALS: no JVD Resp: COMMON NORMALS: normal respiratory effort and clear to auscultation bilaterally AUSCULTATION: clear to auscultation bilaterally, wheezes (L) and diminished lung sounds Cardio: COMMON NORMALS: no JVD, regular rhythm, S1 normal heart sound present, S2 normal heart sound present and No murmurs present (Cardio) RHYTHM: regular rhythm HEART SOUNDS: S1 normal heart sound present and S2 normal heart sound present GI: COMMON NORMALS: Normal to inspection, nondistended, normoactive bowel sounds present, Soft to palpation and non-tender INSPECTION: Yes abdominal distension PALPATION: Yes Soft to palpation Extremity: COMMON NORMALS: no joint enlargement and no pedal edema Neuro: COMMON NORMALS: patient oriented x3 and moves all extremities SENSORIUM/ORIENTATION: Yes alert Skin: COMMON NORMALS: no rashes or lesions noted GENERAL SKIN EXAM: no rashes or lesions noted Discharge Data Studies Completed and Pending Completed Studies During Hospitalization Category Date Time Status XR chest 1V portable [id number] Stat Exams 07/18/23 14:05 Completed CV. echo complete* [id number] Routine Ultrasound 07/23/23 17:10 Completed Pending at discharge Category Date Time Status Bacterial Antigen Stat Lab 07/22/23 17:10 Ordered Comprehensive Metabolic Panel AM LABS Lab 07/26/23 04:00 Ordered Comprehensive Metabolic Panel AM LABS Lab 07/27/23 04:00 Ordered Legionella Antigen STAT Stat Lab 07/22/23 17:10 Ordered Sputum Culture and Gram Stain Stat Lab 07/18/23 14:31 Uncollected Radiology Impressions Chest X-Ray 07/18/23 14:05 IMPRESSION: No acute disease. Echocardiogram: CONCLUSIONS LV systolic function is normal with EF of 55 to 60%. Mild mitral regurgitation. Trace tricuspid regurgitation. Compared to prior echocardiogram from 2020, no significant changes are seen Irwin Barahona MD (Electronically Signed) Final Date: 23 July 2023 Laboratory Results WBC 11.95 10^3/uL (3.29-11.43) H 07/25/23 05:25 RBC 3.65 10^6/uL (3.85-5.65) L 07/25/23 05:25 Hgb 11.00 g/dL (11.27-16.99) L 07/25/23 05:25 Hct 35.7 % (36-47) L 07/25/23 05:25 MCV 97.8 fl (85-98) 07/25/23 05:25 MCH 30.1 pg (27-33) 07/25/23 05:25 MCHC 30.8 g/dL (30-55) 07/25/23 05:25 RDW 14.8 % (12.1-15.1) 07/25/23 05:25 Plt Count 148 10^3/cmm (157-399) L 07/25/23 05:25 MPV 11.0 fL (7.4-10.4) H 07/25/23 05:25 Neut % (Auto) 77.4 % 07/25/23 05:25 Lymph % (Auto) 14.3 % 07/25/23 05:25 [place] % (Auto) 6.6 % 07/25/23 05:25 Eos % (Auto) 0.8 % 07/25/23 05:25 Baso % (Auto) 0.2 % 07/25/23 05:25 Neut # (Auto) 9.25 10^3/uL (1.8-7.7) H 07/25/23 05:25 Lymph # (Auto) 1.7 10^3/uL (0.8-4.8) 07/25/23 05:25 [place] # (Auto) 0.8 10^3/uL (0.2-0.9) 07/25/23 05:25 Eos # (Auto) 0.1 10^3/uL (0.0-0.8) 07/25/23 05:25 Baso # (Auto) 0.0 10^3/uL (0.0-0.1) 07/25/23 05:25 Nucleated RBC % (auto) 0 % 07/25/23 05:25 Nucleated RBCs # 0.0 /100WBC 07/25/23 05:25 D-Dimer 0.49 ug/mLFEU (0-0.59) 07/18/23 19:50 Specimen Type Arterial 07/19/23 09:39 Sample Site Brachial, right 07/19/23 09:39 ABG pH 7.36 (7.35-7.45) 07/19/23 09:39 ABG pCO2 81.9 mmHg (35-45) H* 07/19/23 09:39 ABG pO2 72.4 mmHg (80.0-100.0) L 07/19/23 09:39 ABG PO2/FiO2 Ratio 0 07/19/23 09:39 ABG HCO3 45.8 mmol/L (22-26) H 07/19/23 09:39 ABG O2 Saturation 94.9 07/19/23 09:39 ABG Base Excess 16.6 mmol/L (-2.0-2.0) H 07/19/23 09:39 Braxton Test Pos 07/19/23 09:39 A-a O2 Gradient 24.5 mmHg (5-10) H 07/19/23 09:39 Hematocrit 36.8 % (37-47) L 07/19/23 09:39 Hgb O2 Saturation 93.2 % (95-100) L 07/19/23 09:39 Carboxyhemoglobin 1.2 %THgb (0.4-20.1) 07/19/23 09:39 Methemoglobin 0.5 % (0.4-1.5) 07/19/23 09:39 Total Hemoglobin 12.0 g/dL (12-16) 07/19/23 09:39 Sodium 139.0 mmol/L (131-143) 07/19/23 09:39 Potassium 4.8 mmol/L (3.5-5.0) 07/19/23 09:39 Glucose 138.0 mg/dL (70-115) H 07/19/23 09:39 Ionized Calcium 1.3 mmol/L (1.1-1.4) 07/19/23 09:39 O2 Delivery Device Bipap 07/19/23 09:39 O2 Liters/Min 15.0 % 07/18/23 14:14 FiO2 50.0 % 07/19/23 09:39 Tidal Volume 0.40 07/19/23 09:39 PEEP 6.0 cmH20 07/19/23 09:39 Heel Lining Paster ID [place] 07/19/23 09:39 Sodium 140 mmol/L (136-145) 07/25/23 05:25 Potassium 3.2 mmol/L (3.5-5.1) L 07/25/23 05:25 Chloride 92 mmol/L (98-107) L 07/25/23 05:25 Carbon Dioxide 40 mmol/L (22-29) H 07/25/23 05:25 Anion Gap 11.2 (5-19) 07/25/23 05:25 BUN 32 mg/dL (6-20) H 07/25/23 05:25 Creatinine 1.4 mg/dL (0.5-0.9) H 07/25/23 05:25 GFR Calculation 39.2 mL/min (90-130) L 07/25/23 05:25 Glucose 101 mg/dL (65-115) 07/25/23 05:25 Calculated Osmolality 297 mOsm/kg (285-295) H 07/25/23 05:25 Lactic Acid 0.5 mmol/L (0.5-2.2) 07/18/23 14:17 Calcium 8.3 mg/dL (8.5-10.5) L 07/25/23 05:25 Total Bilirubin 0.2 mg/dL (0.15-1.2) 07/25/23 05:25 AST 13 U/L (0-32) 07/25/23 05:25 ALT 60 U/L (0-33) H 07/25/23 05:25 Alkaline Phosphatase 42 U/L (35-105) 07/25/23 05:25 Troponin T Baseline 14 ng/L (0-10) H 07/18/23 19:50 Troponin T 120 Minute 14.88 ng/L (0-10) H 07/18/23 21:43 Delta Troponin T 0.88 ABS# (0-10) 07/18/23 21:43 Troponin T Hi Sens 6Hr 15.84 ng/L (0-10) H 07/19/23 01:59 Troponin T Hi Sens 6Hr Delta 1.84 ng/L (0-12) 07/19/23 01:59 Total Protein 5.2 g/dL (6.6-8.7) L 07/25/23 05:25 Albumin 3.4 g/dL (3.5-5.2) L 07/25/23 05:25 Globulin 1.8 g/dL (1.3-4.6) 07/25/23 05:25 Vancomycin Trough 22.8 ug/mL (10-15) H 07/21/23 12:44 Adenovirus (PCR) Not detected (NOT DETECT) 07/18/23 16:00 C. pneumoniae DNA (PCR) Not detected (NOT DETECT) 07/18/23 16:00 Coronavirus 229E (PCR) Not detected (NOT DETECT) 07/18/23 16:00 Human Metapneumovir PCR Not detected (NOT DETECT) 07/18/23 16:00 Influenza A (H1) PCR Not detected (NOT DETECT) 07/18/23 16:00 Influ A (H1/09) PCR Not detected (NOT DETECT) 07/18/23 16:00 Influenza A (H3) PCR Not detected (NOT DETECT) 07/18/23 16:00 Influenza Type A (PCR) Not detected (NOT DETECT) 07/18/23 16:00 Influenza Type B (PCR) Not detected (NOT DETECT) 07/18/23 16:00 M. pneumoniae (PCR) Not detected (NOT DETECT) 07/18/23 16:00 Parainfluenza 1 (PCR) Not detected (NOT DETECT) 07/18/23 16:00 Parainfluenza 2 (PCR) Not detected (NOT DETECT) 07/18/23 16:00 Parainfluenza 3 (PCR) Not detected (NOT DETECT) 07/18/23 16:00 Parainfluenza 4 (PCR) Not detected (NOT DETECT) 07/18/23 16:00 RSV Type A (PCR) Not detected (NOT DETECT) 07/18/23 16:00 RSV Type B (PCR) Not detected (NOT DETECT) 07/18/23 16:00 Entero/Rhino (PCR) Not detected (NOT DETECT) 07/18/23 16:00 SARS-CoV-2 (PCR) Not detected (NOT DETECT) 07/18/23 16:00 MRSA (PCR) Not detected (NOT DETECTED) 07/21/23 23:20 Vitals Last Vital Signs Temp 98.2 F 07/25/23 11:22 Pulse 84 07/25/23 11:22 Resp 18 07/25/23 11:22 BP 122/80 07/25/23 11:22 Pulse Ox 79 L 07/25/23 12:53 O2 Del Method Nasal Cannula 07/25/23 11:22 O2 Flow Rate 6 07/25/23 12:53 FiO2 40 07/25/23 04:00 Discharge Plan Discharge Patient Disposition: Home Condition: Stable Prescriptions: New prednisone 10 mg tablet See Taper PO DIRECTED Qty: 42 0RF Taper: predniSONE 60-10 60 mg Daily for 2 Days and 0 Hour 50 mg Daily for 2 Days and 0 Hour 40 mg Daily for 2 Days and 0 Hour 30 mg Daily for 2 Days and 0 Hour 20 mg Daily for 2 Days and 0 Hour 10 mg Daily for 2 Days and 0 Hour Rx Instructions: see taper instructions furosemide 40 mg Tablet 40 mg PO DAILY@0800 Qty: 30 0RF Continued ([facility]) oxygen and concentrator See Rx Instructions .Route .MEDSUPPLY Qty: 1 0RF Rx Instructions: use 2L O2 via NC with exercise ([facility]) Portable oxygen concentrator See Rx Instructions .Route .MEDSUPPLY Qty: 1 0RF Rx Instructions: As directed ([facility]) Inspire Portable oxygen concentrator See Rx Instructions .Route .MEDSUPPLY Qty: 1 0RF Rx Instructions: Rate 4L O2 ([facility]) Portable Oxygen Concentrator 2-4L/NC See Rx Instructions .Route .MEDSUPPLY Qty: 1 0RF Rx Instructions: Continuous oxygen at 2-4L/NC. (DME) Portable Oxygen Concentrator 2-4L/NC 0 .ROUTE .MEDSUPPLY formoterol fumarate [Perforomist] 20 mcg/2 mL solution for nebulization 2 ml inhalation BID Qty: 120 6RF Spiriva with HandiHaler 18 mcg capsule, w/inhalation device 1 cap inhalation DAILY Qty: 60 6RF Rx Instructions: puncture 1 cap using device; one dose = 2 inhalations bupropion HCl 150 mg tablet extended release 24 hr 150 mg PO QAM Qty: 30 3RF budesonide-formoterol [Symbicort] 160-4.5 mcg/actuation HFA aerosol inhaler 2 puff INHALATION BID Qty: 10.2 2RF albuterol sulfate [Ventolin HFA] 90 mcg/actuation HFA aerosol inhaler 2 puff inhalation QID PRN (Reason: Shortness Of Breath) pantoprazole 40 mg tablet,delayed release (DR/EC) 40 mg PO DAILY polyethylene glycol 3350 17 gram/dose powder 17 g PO BID PRN (Reason: Constipation) Senna Lax 8.6 mg Tablet 8.6 mg PO BID PRN (Reason: Constipation) ferrous gluconate 324 mg (37.5 mg iron) tablet 37.5 mg PO BIDWM albuterol sulfate 2.5 mg /3 mL (0.083 %) solution for nebulization See Rx Instructions .ROUTE .COMPLEX PRN (Reason: sob) Qty: 180 2RF Dose Instruction: INHALE ONE vial via NEBULIZER FOUR TIMES DAILY NEEDED FOR SHORTNESS OF BREATH OR wheezing Rx Instructions: INHALE ONE vial via NEBULIZER FOUR TIMES DAILY NEEDED FOR SHORTNESS OF BREATH OR wheezing Changed ipratropium-albuterol 0.5 mg-3 mg(2.5 mg base)/3 mL solution for nebulization 3 ml inhalation Q8H Qty: 90 2RF Discontinued prednisone 20 mg tablet 20 mg PO DAILY Discharge Orders: Discharge Order (Routine); Ordered 07/25/23 Ordered By: Haider Velasco Other Ambulatory Orders: DME: Oxygen (Order) Location: None Selected Ordered By: Haider Velasco Referrals: [facility] [Other] Reena López MD [Primary Care Provider] - 07/25/23 2:30 pm Discharge Diet: Usual diet Discharge Activity: Resume usual activity and Increase activity as tolerated Patient Instructions: Opioid Safety Activity Restrictions/Additional Instructions: Please take steroid taper as prescribed. Continue doing DuoNeb nebulization at home 3 times a day. You will benefit from pulmonary rehab as discussed in detail. Take Lasix 40 mg daily which is the diuretic/water pill. Fluid restriction to less than 1500 cc/day Please follow-up with your primary care provider within next 1 week. Discharge Attestations Time Spent in Discharge Care*: greater than 30 min Specific Discharge Activities: educating patient, educating and/or supporting family/caregiver, discussing with pcp/other providers, discussing with pillowcase cutter/social workers/dc planners, documenting/other paperwork and evaluating patient/reviewing data Time Spent in Smoking Cessation: more than 10 minutes Status at Discharge: Cognitive status at discharge: cognitively intact, Behavioral status at discharge: cooperative, Functional status at discharge: uses cane/walker, Overall status at discharge: patient is progressing back to baseline Quality Metrics Clinical Quality Measures [ No reported AMI, CVA or VTE this stay] Coding Level of Care Code 88230 Total time (in minutes) for Discharge: 50 Diagnoses Acute respiratory failure with hypoxia and hypercapnia J96.01; J96.02 Chest tightness R07.89 Upper GI bleeding K92.2
== END 2023-07-25 14:40 | disposition home or self-care (01) | DRG 190 ==
LOC: ER 14:36 → ICU 17:47 → MEDSURG 07-20 17:47
PROVIDERS: Admitting Provider Internal Medicine; Emergency Provider Family Medicine; PCP Family Medicine; Visit Provider Student in an Organized Health Care Education/Training Program
DX: J44.1 Chronic obstructive pulmonary disease with (acute) exacerbation (principal); J96.21 Acute and chronic respiratory failure with hypoxia; J96.22 Acute and chronic respiratory failure with hypercapnia; E87.29 Other acidosis; K92.2 Gastrointestinal hemorrhage, unspecified; Z11.52 Encounter for screening for COVID-19; Z99.81 Dependence on supplemental oxygen; Z86.73 Personal history of transient ischemic attack (TIA), and cerebral infarction without residual deficits; I10 Essential (primary) hypertension; K21.9 Gastro-esophageal reflux disease without esophagitis; F41.9 Anxiety disorder, unspecified; F17.210 Nicotine dependence, cigarettes, uncomplicated; I27.81 Cor pulmonale (chronic)
CPT/HCPCS: 36415; 36600; 71045; 80048; 80051; 80053; 80202; 82330; 82805; 83605; 84484; 85025; 85378; 87040; 87486; 87581; 87633; 87641; 93005; 93306; 94640; 94660; 94664; 94760; 96365; 96367; 96372; 96375; 96376; 99291; C9113; J1100; J1644; J1650; J1940; J2270; J2405; J2543; J2930; J3370; J7050; J7613; J7626

== ENCOUNTER 2023-08-20 06:00 | Outpatient (RCR) | payer MEDICAID, SELFPAY | END 2023-09-03 23:59 | disposition home or self-care (01) | LOC: TPT 06:00 | PROVIDERS: Visit Provider Family Medicine | DX: J44.1 Chronic obstructive pulmonary disease with (acute) exacerbation (principal); M62.81 Muscle weakness (generalized) | CPT/HCPCS: 97162 ==

== ENCOUNTER → 2023-11-20 16:44 | Outpatient (BNVA) | payer MEDICAID, SELFPAY | PROVIDERS: PCP Family Medicine; Visit Provider Family Medicine | DX: R30.0 Dysuria (principal) | CPT/HCPCS: 81000 ==

== ENCOUNTER 2023-12-02 20:55 | Inpatient (IN) | payer MEDICAID, SELFPAY ==
[2023-12-02] VITALS (9 sets, daily range): BP systolic 106–136; BP diastolic 75–93; PULSE 80–100; RESP 17–24; TEMP 36.7; O2SAT 87–100
--- NOTE | 2023-12-02 21:04 | ECG_ITS ---
[facility] Test Date: 2023-12-02 Pat Name: Estelle Pascual Department: Room: Gender: Female Manager Military: : 1970 Requested By: Eben Bruno Order Number: [id number] Tawanda MD: Taya Villalta M.D. Measurements Intervals [place] Rate: 81 P: 86 MN: 157 QRS: 85 QRSD: 86 T: 257 QT: 381 QTc: 443 Interpretive Statements SINUS RHYTHM WITH SINUS ARRHYTHMIA MODERATE T-WAVE ABNORMALITY, CONSIDER ANTERIOR ISCHEMIA [-0.1+ mV T-WAVE IN V3/V4] Compared to ECG 07/19/2023 02:38:47 T-wave abnormality now present Possible ischemia now present Electronically Signed On 12-04-2023 6:25:24 CDT by Taya Villalta M.D. [email or web address]
--- NOTE | 2023-12-02 21:12 | XRR_ITS ---
PROCEDURE INFORMATION: Exam: XR Chest Exam date and time: 12/02/2023 9:15 PM Age: 53 years old Clinical indication: Shortness of breath; Additional info: Dyspnea TECHNIQUE: Imaging protocol: Radiologic exam of the chest. Views: 1 view. COMPARISON: CR XR chest 1V portable [id number] 07/18/2023 2:20 PM FINDINGS: Lungs: The lungs are adequately expanded. No focal consolidations or pulmonary edema. Emphysema. Pleural spaces: No pleural effusions or pneumothorax. Heart/Mediastinum: Unremarkable. No cardiomegaly. Bones/joints: Unremarkable. XR/XR chest 1V portable [id number] IMPRESSION: No acute findings within the chest. Emphysema.
[2023-12-02 21:24] LABS: Basophils % 0.2 %; Eosinophils # 0.1 10^3/uL (0.0-0.8); Eosinophils % 1.3 %; Hematocrit 39.4 % (36-47); Lymphocytes # 1.4 10^3/uL (0.8-4.8); Lymphocytes % 17.1 %; Mean Corpuscular HGB Conc 31.5 g/dL (30-55); Mean Corpuscular Hemoglobin 30.2 pg (27-33); Mean Corpuscular Volume 96.1 fl (85-98); Mean Platelet Volume 11.2 fL (7.4-10.4); Monocytes # 0.5 10^3/uL (0.2-0.9); Monocytes % 6.6 %; Neutrophils % 74.4 %; Nucleated Red Blood Cells % 0 %; Platelet Count 199 10^3/cmm (157-399); Red Cell Distribution Width 12.9 % (12.1-15.1)
[2023-12-02 21:35] LABS: Arterial Blood Gas Hematocrit 38.3 % (37-47); Base Excess ABG 33.2 mmol/L (-2.0-2.0); Blood Gas Sample Site Brachial, right; Blood Gas Sample Type Arterial; Carboxyhemoglobin 1.2 %THgb (0.4-20.1); HCO3 ABG 65.2 mmol/L (22-26); HGB O2 Sat 94.1 % (95-100); Ionized Calcium Level - ABG 1.1 mmol/L (1.1-1.4); Methemoglobin 1.1 % (0.4-1.5); Oxygen Device NC; Oxygen Saturation ABG 96.3; Potassium Level - ABG 2.3 mmol/L (3.5-5.0); Total Hemoglobin 12.5 g/dL (12-16)
[2023-12-02 21:42] LABS: Troponin(5th) Baseline 22 ng/L (0-10)
[2023-12-02 21:45] LABS: Lactic Sepsis W/Reflex 1.6 mmol/L (0.5-2.2)
--- NOTE | 2023-12-02 21:58 | ED_ITS ---
HPI - SOB/Dyspnea 2 General: Chief Complaint: Shortness of Breath/Dyspnea Stated Complaint: SOB pale incoherent occasionally Time Seen by Provider: 12/02/23 21:04 History of Present Illness: HPI Narrative: Patient presents to the ER with complaints of shortness of breath off and on throughout the day to the point of having hallucinations and confusion. Patient has end-stage COPD and normally wears 6 L of oxygen at all times. Patient had increased thick mucus drainage today and has not been wearing her BiPAP at night because of this. Patient denies any fever chills or close contacts with anyone with sickness. Review of Systems 2 General: Reports: 10 or more systems reviewed and unremarkable except in HPI and below PFSH ED 2 PFSH: Medical History Chronic hypercapnic respiratory failure Upper GI bleeding TIA (transient ischemic attack) Dependence on supplemental oxygen HTN (hypertension) Acute exacerbation of chronic obstructive airways disease Tenosynovitis of foot Fracture of fifth metatarsal bone of right foot Gastroesophageal reflux disease Hypertension Anxiety COPD (chronic obstructive pulmonary disease) Right ankle pain Right foot pain Surgical History Hx of tubal ligation History of tonsillectomy and adenoidectomy Hx of cholecystectomy Hx of hernia repair Hx of section Hx of colonoscopy (~2012) Family History Father Cancer lung Heart disease Mother Heart disease Social History Smoking and tobacco/nicotine status: current every day tobacco/nicotine user cigarettes Packs smoked per day: 1 Years cigarettes smoked: 45 Second hand smoke exposure: Yes Alcohol intake: former Former alcohol use details: sober x 20 yrs Substance/Drug Use: never Caregiver/support person: Yes Lives independently: Yes Household members: spouse and children Marital status: service: No Current occupational status: unemployed Current gender identity: Female Special lauryn needs: No Agree to transfusion: No Physical Exam 2 Const: COMMON NORMALS: no acute distress, average body habitus, patient oriented x3, no limitations, healthy appearing, alert and well nourished HENMT: COMMON NORMALS: normocephalic, atraumatic, hearing grossly normal bilaterally, external ears normal, Normal external nose present and moist oral mucous membranes HEAD & SCALP: normocephalic and atraumatic NOSE: Normal external nose present EXTERNAL EAR: Yes external ears normal Neck/C-Spine: COMMON NORMALS: no JVD Chest: COMMONS NORMALS: normal inspection of the chest and normal palpation of entire chest wall Resp: COMMON NORMALS: normal respiratory effort, No retractions, No use of accessory muscles and clear to auscultation bilaterally AUSCULTATION: clear to auscultation bilaterally Cardio: COMMON NORMALS: no JVD, regular rate, regular rhythm, S1 normal heart sound present, S2 normal heart sound present, No gallops present (Cardio), No clicks present (Cardio), No murmurs present (Cardio) and No rub (Cardio) R ATE: regular rate RHYTHM: regular rhythm HEART SOUNDS: S1 normal heart sound present and S2 normal heart sound present GI: COMMON NORMALS: Normal to inspection, nondistended, normoactive bowel sounds present, Soft to palpation, non-tender, No hepatosplenomegaly present and no masses PALPATION: Yes Soft to palpation and Yes No hepatosplenomegaly present Neuro: COMMON NORMALS: patient oriented x3 SENSORIUM/ORIENTATION: Yes alert Course 2 Vital Signs: Vital signs: Vital Signs Temperature 98.1 F 12/02/23 21:07 Pulse Rate 80 12/02/23 22:42 Respiratory Rate 23 H 12/02/23 22:42 Blood Pressure 136/93 12/02/23 22:42 Pulse Oximetry 95 12/02/23 22:42 Oxygen Delivery Me thod BiPAP 12/02/23 22:35 Oxygen Flow Rate 6 12/02/23 21:11 Fraction of Inspir ed Oxygen 40 12/02/23 22:35 MDM - SOB/Dyspnea Medical Decision Making Patient ABG come back with elevated pCO2 of 106, white count was normal metabolic panel showed her potassium 3.2, CO2 of 49, creatinine of 1.2, chest x- ray was negative, we are waiting on her respiratory panel and urinalysis. Dr. Rizzo was consulted who agreed to place patient in [facility] for BiPAP overnight and probable DC in the morning. Differential Diagnosis Likely acute exacerbation of chronic obstructive airways disease Medical Records I reviewed the patient's medical records. Lab Data I reviewed the patient's lab results. 12/02/23 21:15 12/02/23 21:15 Labs/Radiology: Radiology Impressions Chest X-Ray 12/02/23 21:12 IMPRESSION: No acute findings within the chest. Emphysema. Laboratory Results WBC 8.20 10^3/uL (3.29-11.43) 12/02/23 21:15 RBC 4.10 10^6/uL (3.85-5.65) 12/02/23 21:15 Hgb 12.40 g/dL (11.27-16.99) 12/02/23 21:15 Hct 39.4 % (36-47) 12/02/23 21:15 MCV 96.1 fl (85-98) 12/02/23 21:15 MCH 30.2 pg (27-33) 12/02/23 21:15 MCHC 31.5 g/dL (30-55) 12/02/23 21:15 RDW 12.9 % (12.1-15.1) 12/02/23 21:15 Plt Count 199 10^3/cmm (157-399) 12/02/23 21:15 MPV 11.2 fL (7.4-10.4) H 12/02/23 21:15 Neut % (Auto) 74.4 % 12/02/23 21:15 Lymph % (Auto) 17.1 % 12/02/23 21:15 [place] % (Auto) 6.6 % 12/02/23 21:15 Eos % (Auto) 1.3 % 12/02/23 21:15 Baso % (Auto) 0.2 % 12/02/23 21:15 Neut # (Auto) 6.10 10^3/uL (1.8-7.7) 12/02/23 21:15 Lymph # (Auto) 1.4 10^3/uL (0.8-4.8) 12/02/23 21:15 [place] # (Auto) 0.5 10^3/uL (0.2-0.9) 12/02/23 21:15 Eos # (Auto) 0.1 10^3/uL (0.0-0.8) 12/02/23 21:15 Baso # (Auto) 0.0 10^3/uL (0.0-0.1) 12/02/23 21:15 Nucleated RBC % (auto) 0 % 12/02/23 21:15 Nucleated RBCs # 0.0 /100WBC 12/02/23 21:15 Specimen Type Arterial 12/02/23 21:24 Sample Site Brachial, right 12/02/23 21:24 ABG pH 7.40 (7.35-7.45) 12/02/23 21:24 ABG pCO2 106.0 mmHg (35-45) H* 12/02/23 21:24 ABG pO2 81.0 mmHg (80.0-100.0) 12/02/23 21:24 ABG HCO3 65.2 mmol/L (22-26) H 12/02/23 21:24 ABG O2 Saturation 96.3 12/02/23 21:24 ABG Base Excess 33.2 mmol/L (-2.0-2.0) H 12/02/23 21:24 Braxton Test N/a 12/02/23 21:24 A-a O2 Gradient 0.0 mmHg (5-10) L 12/02/23 21:24 Hematocrit 38.3 % (37-47) 12/02/23 21:24 Hgb O2 Saturation 94.1 % (95-100) L 12/02/23 21:24 Carboxyhemoglobin 1.2 %THgb (0.4-20.1) 12/02/23 21:24 Methemoglobin 1.1 % (0.4-1.5) 12/02/23 21:24 Total Hemoglobin 12.5 g/dL (12-16) 12/02/23 21:24 Sodium 140.0 mmol/L (131-143) 12/02/23 21:24 Potassium 2.3 mmol/L (3.5-5.0) L 12/02/23 21:24 Glucose 144.0 mg/dL (70-115) H 12/02/23 21:24 Ionized Calcium 1.1 mmol/L (1.1-1.4) 12/02/23 21:24 O2 Delivery Device Nc 12/02/23 21:24 O2 Liters/Min 6.0 % 12/02/23 21:24 [employer] ID [email or web address] 12/02/23 21:24 Sodium 139 mmol/L (136-145) 12/02/23 21:15 Potassium 3.2 mmol/L (3.5-5.1) L 12/02/23 21:15 Chloride 74 mmol/L (98-107) L 12/02/23 21:15 Carbon Dioxide 49 mmol/L (22-29) H* 12/02/23 21:15 Anion Gap 19.2 (5-19) H 12/02/23 21:15 BUN 12 mg/dL (6-20) 12/02/23 21:15 Creatinine 1.2 mg/dL (0.5-0.9) H 12/02/23 21:15 GFR Calculation 46.6 mL/min (90-130) L 12/02/23 21:15 Glucose 150 mg/dL (65-115) H 12/02/23 21:15 Calculated Osmolality 291 mOsm/kg (285-295) 12/02/23 21:15 Lactic Acid 1.6 mmol/L (0.5-2.2) 12/02/23 21:15 Calcium 9.5 mg/dL (8.5-10.5) 12/02/23 21:15 Magnesium 2.1 mg/dL (1.7-2.3) 12/02/23 21:15 Total Bilirubin 0.3 mg/dL (0.15-1.2) 12/02/23 21:15 AST 26 U/L (0-32) 12/02/23 21:15 ALT 22 U/L (0-33) 12/02/23 21:15 Alkaline Phosphatase 117 U/L (35-105) H 12/02/23 21:15 Troponin T Baseline 22 ng/L (0-10) H 12/02/23 21:15 NT-Pro-B Natriuret Pep 622 pg/mL (0-125) H 12/02/23 21:15 Total Protein 6.7 g/dL (6.6-8.7) 12/02/23 21:15 Albumin 4.3 g/dL (3.5-5.2) 12/02/23 21:15 Globulin 2.4 g/dL (1.3-4.6) 12/02/23 21:15 Procalcitonin 0.09 ng/mL (0-0.5) 12/02/23 21:15 All radiology interpretation(s) finalized by discharge Discharge Plan Discharge Patient Disposition: Placed in Observation Clinical Impression: Acute exacerbation of chronic obstructive airways disease, Acute hypokalemia Coding Level of Care Code ED [employer] Manager for Vishal Badillo
[2023-12-02 22:00] LABS: NT Pro B Type Natriuretic Pept 622 pg/mL (0-125); Procalcitonin 0.09 ng/mL (0-0.5)
[2023-12-02 22:10] LABS: Alanine Aminotransferase 22 U/L (0-33); Albumin Level 4.3 g/dL (3.5-5.2); Alkaline Phosphatase 117 U/L (35-105); Blood Urea Nitrogen 12 mg/dL (6-20); Calcium 9.5 mg/dL (8.5-10.5); Chloride 74 mmol/L (98-107); Creatinine Clr Calc Pharmacy 43.9183; Globulin 2.4 g/dL (1.3-4.6); Glomerular Filtration Rate 46.6 mL/min (90-130); Glucose 150 mg/dL (65-115); Magnesium 2.1 mg/dL (1.7-2.3); Osmolality Calculated 291 mOsm/kg (285-295); Sodium 139 mmol/L (136-145); Total Bilirubin 0.3 mg/dL (0.15-1.2); Total Protein 6.7 g/dL (6.6-8.7)
[2023-12-02 22:15] LABS: Anion Gap 19.2 (5-19); Aspartate Amino Transferase 26 U/L (0-32); Potassium 3.2 mmol/L (3.5-5.1)
[2023-12-02 22:24] LABS: Carbon Dioxide 49 mmol/L (22-29)
[2023-12-02] MEDS: sodium chloride 0.9% 1,000 ML 999 ML IV (22:34)
[2023-12-02] MEDS: ipratropium-albuterol 3 mL Neb INHALATION (22:35)
[2023-12-02 23:21] LABS: Glucose Urine UA Norm (Normal); Ketones Urine 1+ (Negative); Protein Urine 1+ (Negative); Specific Gravity, Urine 1.025 (1.005-1.030); Urine Appearance Slightly Cloudy (CLEAR); Urine Color Yellow (Yellow); pH Urine 5 (5-7)
[2023-12-02 23:22] LABS: Add Urine Microscopic? YES; Bilirubin Urine 1+ (Negative); Blood Urine Neg (Negative); Leukocyte Esterase Urine Negative (Negative); Nitrate Urine Negative (Negative); Urobilinogen Urine 1 mg/dL (Negative)
[2023-12-02 23:25] LABS: Add Urine Culture? No; Bacteria Urine TRACE /hpf; Mucus Urine 2+ /hpf; RBC Urine 0-4 /hpf (0-2)
--- NOTE | 2023-12-02 23:26 | P.HP_ITS ---
Providers/Chief Complaint 2 Primary Care Provider: Reena López MD Chief Complaint: SOB pale incoherent occasionally History of Present Illness Estelle Pascual is a 53 year old female With past medical history of COPD has a BiPAP at home presented to the hospital for altered mental status and being obtunded. She was brought in by her daughter. She has been confused and having hallucinations. She is on 6 L of oxygen [id number]. Has been having increased thick mucus drainage today and has not been wearing her BiPAP lately. Denies fever chills nausea vomiting diarrhea recent ill contacts. There is a history of TIA listed in the chart from prior. She is a current everyday smoker. History obtained from chart as patient is not able to answer many questions. She is very lethargic appearing however is able to state her name and date of . Currently on BiPAP. ABG reviewed. . Respiratory viral panel ordered by ER. EKG without any acute ischemic changes. Chest x-ray shows no acute infiltrate. Potassium 3.2, chloride 74, creatinine 1.2. BNP 622. Medications/Allergies Home Medications Medication Instructions Recorded Confirmed Last Taken Type oxygen and concentrator #1 ea 03/03/20 11/01/23 Unknown Rx Inspire Portable oxygen #1 ea 10/30/22 11/01/23 Unknown Rx concentrator Portable oxygen concentrator #1 ea 10/30/22 11/01/23 Unknown Rx bupropion HCl 150 mg 24 hr tablet, 150 mg PO QAM #30 tabs 04/16/23 11/01/23 07/17/23 Rx extended release Portable Oxygen Concentrator 06/18/23 11/01/23 Unknown History Portable Oxygen Concentrator #1 ea 06/18/23 11/01/23 Unknown Rx ferrous gluconate 324 mg (37.5 mg 37.5 mg PO BIDWM 07/18/23 11/01/23 07/17/23 History iron) tablet polyethylene glycol 3350 17 17 g PO BID PRN Constipation 07/18/23 11/01/23 07/17/23 History gram/dose oral powder sennosides 8.6 mg tablet (Senna 8.6 mg PO BID PRN Constipation 07/18/23 11/01/23 07/17/23 History Lax) albuterol sulfate 2.5 mg/3 mL See Rx Instructions .Route 07/25/23 11/01/23 07/17/23 Rx (0.083 %) solution for nebulization .COMPLEX PRN sob #180 mL prednisone 10 mg tablet See Taper PO DIRECTED #42 tabs 07/25/23 11/01/23 Unknown Rx furosemide 40 mg tablet 40 mg PO DAILY@0800 #30 tabs 07/30/23 11/01/23 Unknown Rx pantoprazole 40 mg tablet,delayed 40 mg PO DAILY #30 tabs 07/30/23 11/01/23 Unknown Rx release budesonide-formoterol HFA 160 2 puff inhalation BID #10.2 grams 10/08/23 11/01/23 Unknown Rx mcg-4.5 mcg/actuation aerosol inhaler (Symbicort) albuterol sulfate 90 mcg/actuation 2 puff inhalation QID PRN 10/25/23 11/01/23 Unknown Rx aerosol inhaler (Ventolin HFA) Shortness Of Breath #8.5 grams formoterol fumarate 20 mcg/2 mL 2 ml inhalation BID COPD #120 mL 11/01/23 11/01/23 Unknown Rx solution for nebulization (Perforomist) ipratropium 0.5 mg-albuterol 3 mg 3 ml inhalation Q8H shortness of 11/01/23 11/01/23 Unknown Rx (2.5 mg base)/3 mL nebulization breath or wheezing #90 mL soln polymyxin B sulfate 10,000 1 drp ophthalmic (eye) QID 7 days 11/01/23 11/01/23 Unknown Rx unit-trimethoprim 1 mg/mL eye drops #10 mL tiotropium bromide 18 mcg capsule 1 cap inhalation DAILY #60 11/01/23 11/01/23 Unknown Rx with inhalation device (Spiriva inhalations with HandiHaler) Allergies Allergy/AdvReac Type Severity Reaction Status Date / Time hydrocodone Allergy ADR-Vomitin Verified 12/02/23 21:11 g tramadol Allergy ADR-Itching Verified 12/02/23 21:11 PFSH Acute 2 PFSH: Medical History (Updated 12/03/23 @ 01:35 by Angle Rizzo MD) Chronic hypercapnic respiratory failure Upper GI bleeding TIA (transient ischemic attack) Dependence on supplemental oxygen HTN (hypertension) Acute exacerbation of chronic obstructive airways disease Tenosynovitis of foot Fracture of fifth metatarsal bone of right foot Gastroesophageal reflux disease Hypertension Anxiety COPD (chronic obstructive pulmonary disease) Right ankle pain Right foot pain Surgical History Hx of tubal ligation History of tonsillectomy and adenoidectomy Hx of cholecystectomy Hx of hernia repair Hx of section Hx of colonoscopy (~2012) Family History Father Cancer lung Heart disease Mother Heart disease Social History Smoking and tobacco/nicotine status: current every day tobacco/nicotine user cigarettes Packs smoked per day: 1 Years cigarettes smoked: 45 Second hand smoke exposure: Yes Alcohol intake: former Former alcohol use details: sober x 20 yrs Substance/Drug Use: never Caregiver/support person: Yes Lives independently: Yes Household members: spouse and children Marital status: service: No Current occupational status: unemployed Current gender identity: Female Special lauryn needs: No Agree to transfusion: No Vitals/I&O/Wt Last Vital Signs Temp 98.1 F 12/02/23 21:07 Pulse 82 12/02/23 23:20 Resp 19 H 12/02/23 23:20 BP 106/81 12/02/23 23:20 Pulse Ox 99 12/02/23 23:20 O2 Del Method BiPAP 12/02/23 22:35 O2 Flow Rate 6 12/02/23 21:11 FiO2 40 12/02/23 22:35 Weight last 48 hrs Weight 63.049 kg Physical Exam 2 Narrative: General: Lethargic patient obtunded able to protect her airway currently on BiPAP laying in bed. Wakes up to command able to state her name and date of . Unable to answer any other questions at this time. No acute respiratory distress. HEENT: Normocephalic, atraumatic, EOMI, on BiPAP. Cardio: Regular rate rhythm, normal S1-S2 Respiratory: Decreased bilateral air entry, no gross wheezes or rhonchi at this time. No crackles appreciated. GI: Abdomen soft, nontender, nondistended, bowel sounds + Extremities: No edema bilateral lower extremities no cyanosis. Data 12/02/23 21:15 12/02/23 21:15 A&P Assessment and plan (1) Anxiety: (2) Acute hypokalemia: (3) COPD (chronic obstructive pulmonary disease): Qualifiers: COPD type: COPD with acute exacerbation Qualified Code(s): J44.1 - Chronic obstructive pulmonary disease with (acute) exacerbation (4) Acute respiratory failure with hypoxemia: (5) Acute exacerbation of chronic obstructive airways disease: (6) Dehydration: Plan #COPD exacerbation, CO2 narcosis #Altered mental status, hallucinations, confusion #End-stage COPD, on 6 L [id number] #ELISA on CKD #History of GERD, hypertension, anxiety #Diastolic heart failure not in exacerbation at this time. ? Placed on Solu-Medrol 40 twice daily, budesonide inhaled twice daily, DuoNeb every 6 hours scheduled ? Check sputum Gram stain and culture ? Baseline creatinine 0.7 in July but for last 3 to 4 months it has been 1.2- 1.3 range. ? Check urine lites, urine chloride ? BNP 622, patient appears dehydrated, start gentle fluid hydration normal saline 125 cc/h ? Lactic acid 1.6 ? Recheck gas in AM. ? Potassium 3.2, will replete. Seems to be chronic retainer CO2 49. Baseline around 39-40. ? Will hydrate for tonight. May consider small dose of Diamox in AM. ? Check ammonia, vitamin B12 ? Patient has had previous admissions with similar presentation. ? Respiratory viral panel ordered and pending ? Urinalysis reviewed. No sign of infection however positive for ketones. ? It seems patient may have had poor oral intake. Will check phosphorus level in AM. ? Check nursing dysphagia screen before starting cardiac diet. ? Hold off on Lasix at this time. ? Continue pantoprazole, Wellbutrin ? Will check a D-dimer. - Will empirically cover with ceftriaxone and azithromycin at this time. Patient should discharge home on doxycycline x 7 days total to treat for COPD exacerbation. -Have ordered patient to be on AVAPS for the night. -Patient was seen twice and has not much change in mental status at this time. Low threshold to intubate and moved to ICU. Will continue to monitor on cardiac stepdown at this time. She is able to protect her airway and responds and wakes up to command Full code DVT prophylaxis: SCDs, heparin SQ twice daily Attestations 2 Medical Necessity Statement*: Greater than 2 midnight stay for COPD exacerbation, CO2 narcosis. Diagnoses Anxiety F41.9 Acute hypokalemia E87.6 Chronic obstructive pulmonary disease with acute exacerbation J44.1 COPD type: COPD with acute exacerbation Acute respiratory failure with hypoxemia J96.01 Acute exacerbation of chronic obstructive airways disease J44.1 Dehydration E86.0
[2023-12-02 23:33] LABS: Adenovirus Not Detected (NOT DETECT); Chlamydia Pneumoniae Not Detected (NOT DETECT); Coronavirus 229E,HKU1,NL63,OC4 Not Detected (NOT DETECT); Human Metapneumovirus Not Detected (NOT DETECT); Human Rhinovirus/Enterovirus Not Detected (NOT DETECT); Influenza A Not Detected (NOT DETECT); Influenza A H1 Not Detected (NOT DETECT); Influenza A H1-2009 Not Detected (NOT DETECT); Influenza A H3 Not Detected (NOT DETECT); Influenza B Not Detected (NOT DETECT); Mycoplasma Pneumoniae Not Detected (NOT DETECT); Parainfluenza Virus Type 1 Not Detected (NOT DETECT); Parainfluenza Virus Type 2 Not Detected (NOT DETECT); Parainfluenza Virus Type 3 Not Detected (NOT DETECT); Parainfluenza Virus Type 4 Not Detected (NOT DETECT); Respiratory Syncytial Virus A Not Detected (NOT DETECT); Respiratory Syncytial Virus B Not Detected (NOT DETECT); SARS-COV-2 Not Detected (NOT DETECT)
--- NOTE | 2023-12-02 23:37 | ECG_ITS ---
[facility] Test Date: 2023-12-02 Pat Name: Estelle Pascual Department: Room: 112 Gender: Female Student Career Development Specialist: : 1970 Requested By: Eben Bruno Order Number: [id number] Tawanda MD: Taya Villalta M.D. Measurements Intervals [place] Rate: 82 P: 104 ME: 173 QRS: 93 QRSD: 96 T: -24 QT: 384 QTc: 450 Interpretive Statements SINUS RHYTHM BORDERLINE RIGHT AXIS DEVIATION [QRS AXIS > 90] LOW QRS VOLTAGE IN EXTREMITY LEADS [QRS DEFLECTION < 0.5 mV IN LIMB LEADS] MODERATE T-WAVE ABNORMALITY, CONSIDER ANTEROLATERAL ISCHEMIA [-0.1+ mV T-WAVE IN V3-V6] Compared to ECG 12/02/2023 21:04:20 Low QRS voltage now present Sinus arrhythmia no longer present T-wave abnormality still present Possible ischemia still present Electronically Signed On 12-04-2023 6:31:46 CDT by Taya Villalta M.D. [id number]
--- NOTE | 2023-12-02 23:41 | PC.NURSE ---
Report was called by this nurse to BREANN Walters in [facility]. All questions and concerns were addressed at time of report.
[2023-12-03] VITALS (20 sets, daily range): BP systolic 92–142; BP diastolic 66–81; PULSE 78–95; RESP 16–25; TEMP 36.1–36.9; O2SAT 91–98; BMI 27.1
[2023-12-03 00:05] LABS: Troponin 5 2HR 20.79 ng/L (0-10); Troponin 5 2HR Delta -1.21 ABS# (0-10)
[2023-12-03 00:23] LABS: ABG PH Result 7.41 (7.35-7.45); Arterial Blood Gas Hematocrit 35.1 % (37-47); Base Excess ABG 30.1 mmol/L (-2.0-2.0); Blood Gas Allen Test Pos; Blood Gas Sample Site Radial, right; Blood Gas Sample Type Arterial; Carboxyhemoglobin 1.2 %THgb (0.4-20.1); HCO3 ABG 60.4 mmol/L (22-26); HGB O2 Sat 94.3 % (95-100); Ionized Calcium Level - ABG 1.1 mmol/L (1.1-1.4); Methemoglobin 1.2 % (0.4-1.5); Oxygen Device BIPAP; Oxygen Saturation ABG 96.5; PO2 ABG 79.5 mmHg (80.0-100.0); PO2 FiO2 Ratio Arterial Blood 198; Potassium Level - ABG 2.3 mmol/L (3.5-5.0); Total Hemoglobin 11.4 g/dL (12-16)
[2023-12-03 00:25] LABS: ABG PCO2 95.1 mmHg (35-45)
[2023-12-03 00:48] LABS: Glucose Point of Care 138 mg/dL (70-110)
--- NOTE | 2023-12-03 01:37 | CTR_ITS ---
PROCEDURE INFORMATION: Exam: CT Head Without Contrast Exam date and time: 12/03/2023 3:21 AM Age: 53 years old Clinical indication: Altered mental status/memory loss; Patient HX: Worsening lethargy. Severly hypercapnic with pc02 of 106. ; Additional info: AMS TECHNIQUE: Imaging protocol: Computed tomography of the head without contrast. Radiation optimization: All CT scans at this facility use at least one of these dose optimization techniques: automated exposure control; mA and/or kV adjustment per patient size (includes targeted exams where dose is matched to clinical indication); or iterative reconstruction. COMPARISON: No relevant prior studies available. RADIATION DOSE METRICS: Total DLP (mGy-cm): 1091.28 FINDINGS: Brain: Normal. No hemorrhage. Unremarkable white matter. No mass effect. Cerebral ventricles: No ventriculomegaly. Paranasal sinuses: Visualized sinuses are unremarkable. No fluid levels. Mastoid air cells: Visualized mastoid air cells are well aerated. Bones: Unremarkable. No acute fracture. Soft tissues: Unremarkable. CT/CT head wo con* [id number] IMPRESSION: No acute intracranial abnormality.
[2023-12-03] MEDS: heparin 5,000 unit/mL INJ 1 mL 5000 UNIT SUBCUT ×2 (02:05→13:33)
[2023-12-03] MEDS: methylPREDNISolone sod succ 40 mg/mL INJ IVP ×2 (02:06→13:33)
[2023-12-03] MEDS: sodium chloride 0.9% 1,000 ML 125 ML IV (02:07)
[2023-12-03] MEDS: cefTRIAXone 1,000 mg SDV 1000 MG IVP (02:28)
[2023-12-03] MEDS: azithromycin 500 MG in sodium chloride 0.9% 250 ML 250 MG IV (02:29)
[2023-12-03] MEDS: lidocaine 1% 5 ML in potassium chloride premix 100 ML 52.5 ML IV (02:43)
--- NOTE | 2023-12-03 03:33 | ECG_ITS ---
[facility] Test Date: 2023-12-03 Pat Name: Estelle Pascual Department: Room: 112 Gender: Female Rehab Consultant: : 1970 Requested By: Eben Bruno Order Number: [id number] Tawanda MD: Taya Villalta M.D. Measurements Intervals [place] Rate: 83 P: 70 AL: 170 QRS: 69 QRSD: 86 T: 257 QT: 377 QTc: 444 Interpretive Statements SINUS RHYTHM MODERATE T-WAVE ABNORMALITY, CONSIDER ANTERIOR ISCHEMIA [-0.1+ mV T-WAVE IN V3/V4] Compared to ECG 12/02/2023 23:37:30 No significant changes Electronically Signed On 12-04-2023 6:34:20 CDT by Taya Villalta M.D. [id number]
[2023-12-03 03:44] LABS: ABG PH Result 7.41 (7.35-7.45); Alveolar-Arterial Oxygen Gradi 15.2 mmHg (5-10); Arterial Blood Gas Hematocrit 34.1 % (37-47); Base Excess ABG 29.2 mmol/L (-2.0-2.0); Blood Gas Sample Site Brachial, left; Blood Gas Sample Type Arterial; Carboxyhemoglobin 1.2 %THgb (0.4-20.1); HCO3 ABG 59.2 mmol/L (22-26); HGB O2 Sat 88.5 % (95-100); Ionized Calcium Level - ABG 1.1 mmol/L (1.1-1.4); Methemoglobin 1.1 % (0.4-1.5); Oxygen Device BIPAP; Oxygen Saturation ABG 90.6; PO2 FiO2 Ratio Arterial Blood 145; Potassium Level - ABG 2.2 mmol/L (3.5-5.0); Total Hemoglobin 11.1 g/dL (12-16)
[2023-12-03 03:44] LABS: D Dimer 1.66 ug/mLFEU (0-0.59)
[2023-12-03 03:45] LABS: ABG PCO2 93.4 mmHg (35-45)
[2023-12-03 03:49] LABS: Ammonia 29 umol/L (11-51); Lactic Sepsis W/Reflex 0.9 mmol/L (0.5-2.2)
[2023-12-03 03:51] LABS: Magnesium 2.1 mg/dL (1.7-2.3)
[2023-12-03 03:53] LABS: Troponin 5 6HR 26.97 ng/L (0-10); Troponin 5 6HR Delta 4.97 ng/L (0-12)
[2023-12-03 04:03] LABS: Procalcitonin 0.08 ng/mL (0-0.5); Thyroid Stimulating Hormone 0.79 uIU/mL (0.27-4.20)
[2023-12-03 04:14] LABS: C Reactive Protein 7.6 mg/L (0.0-4.9)
[2023-12-03 06:50] LABS: Anion Gap 13.3 (5-19); Blood Urea Nitrogen 12 mg/dL (6-20); Calcium 8.7 mg/dL (8.5-10.5); Chloride 82 mmol/L (98-107); Creatinine Clr Calc Pharmacy 53.0664; Glomerular Filtration Rate 57.6 mL/min (90-130); Glucose 110 mg/dL (65-115); Osmolality Calculated 296 mOsm/kg (285-295); Sodium 143 mmol/L (136-145)
[2023-12-03 06:57] LABS: Carbon Dioxide 50 mmol/L (22-29); Potassium 2.3 mmol/L (3.5-5.1)
[2023-12-03 07:34] LABS: Amphetamines Screen Urine Negative (Negative); Barbiturates Screen Urine Negative (Negative); Benzodiazepines Screen Urine Negative (Negative); Cocaine Screen Urine Negative (Negative); Opiate Screen Urine Negative (Negative); PCP Screen Urine Negative (Negative); THC Screen Urine Negative (Negative)
[2023-12-03 07:41] LABS: Potassium, Radom Urine 31 mmol/L
[2023-12-03] MEDS: lidocaine 1% 5 ML in potassium chloride premix 100 ML 26.25 ML IV (07:45)
[2023-12-03] MEDS: potassium chloride ER 20 mEq Tablet 40 MEQ PO (07:46)
[2023-12-03 08:00] LABS: Urine Random Chloride < 10 mmol/L; Urine Random Sodium 15 mmol/L
[2023-12-03] MEDS: ipratropium-albuterol 3 mL Neb INHALATION ×4 (08:22→19:30)
--- NOTE | 2023-12-03 08:26 | PC.PHAR ---
Pts' daughter Patricia, verified medications. Pt states took meds yesterday.
[2023-12-03 12:11] LABS: Blood Urea Nitrogen 16 mg/dL (6-20); Calcium 8.8 mg/dL (8.5-10.5); Chloride 87 mmol/L (98-107); Creatinine Clr Calc Pharmacy 58.9627; Glucose 204 mg/dL (65-115); Osmolality Calculated 297 mOsm/kg (285-295); Sodium 140 mmol/L (136-145)
[2023-12-03 12:44] LABS: Anion Gap 12.9 (5-19); Carbon Dioxide 44 mmol/L (22-29); Potassium 3.9 mmol/L (3.5-5.1)
--- NOTE | 2023-12-03 13:52 | P.PN_ITS ---
Subjective 2 Subjective: Patient was seen this morning, she does report smoking, denies any fevers, no chills, does report a cough, she tells me that she is compliant with her home BiPAP machine, denies any lightheadedness, no dizziness Vitals/I&O/Wt Last Vital Signs Temp 97.5 F L 12/03/23 12:00 Pulse 89 12/03/23 12:00 Resp 20 H 12/03/23 12:00 BP 95/66 12/03/23 12:00 Pulse Ox 92 12/03/23 12:00 O2 Del Method Nasal Cannula 12/03/23 12:00 O2 Flow Rate 6 12/03/23 08:32 FiO2 40 12/03/23 11:21 12/02/23 12/03/23 12/03/23 22:59 06:59 14:59 Intake Total 1355.000 / 9842.945 7144 / 1480 Balance 1355.000 / 3783.928 0743 / 1480 Weight last 48 hrs Weight 63.957 kg Weight 63.14 kg Weight 63.049 kg Weight 63.049 kg Physical Exam 2 Const: COMMON NORMALS: no acute distress and patient oriented x3 Resp: COMMON NORMALS: normal respiratory effort, No retractions and No use of accessory muscles AUSCULTATION: crackles and wheezes Cardio: COMMON NORMALS: regular rate, regular rhythm, S1 normal heart sound present and S2 normal heart sound present RATE: regular rate RHYTHM: r egular rhythm HEART SOUNDS: S1 normal heart sound present and S2 normal heart sound present GI: COMMON NORMALS: Normal to inspection, nondistended, normoactive bowel sounds present and non-tender Extremity: COMMON NORMALS: no pedal edema Neuro: COMMON NORMALS: patient oriented x3 Psych: COMMON NORMALS: mental status grossly normal Urinary Catheter Management: Dee: Cath Placed During This Visit: yes Urinary Catheter Date of Insertion: 12/03/23 Urinary Catheter Time of Insertion: 06:36 Data 12/02/23 21:15 12/03/23 11:40 A&P Assessment and plan (1) Anxiety: (2) Acute hypokalemia: (3) COPD (chronic obstructive pulmonary disease): Qualifiers: COPD type: COPD with acute exacerbation Qualified Code(s): J44.1 - Chronic obstructive pulmonary disease with (acute) exacerbation (4) Acute respiratory failure with hypoxemia: (5) Acute exacerbation of chronic obstructive airways disease: (6) Dehydration: Plan #COPD exacerbation, CO2 narcosis #Altered mental status, hallucinations, confusion, resolved #End-stage COPD, on 6 L [id number] #ELISA on CKD #History of GERD, hypertension, anxiety #Diastolic heart failure not in exacerbation at this time. ? Placed on Solu-Medrol 40 twice daily, budesonide inhaled twice daily, DuoNeb every 6 hours scheduled ? Check sputum Gram stain and culture ? Baseline creatinine 0.7 in July but for last 3 to 4 months it has been 1.2- 1.3 range. ? Check urine lites, urine chloride ? BNP 622, looks euvolemic stop IV fluids ? Lactic acid 1.6 ? Potassium 3.2, will replete. Seems to be chronic retainer CO2 49. Baseline around 39-40. ? Hold off on Diamox ? Patient has had previous admissions with similar presentation. ? Respiratory viral panel within normal limits ? Urinalysis reviewed. No sign of infection however positive for ketones. ? It seems patient may have had poor oral intak ? Hold off on Lasix at this time. ? Continue pantoprazole, Wellbutrin - Will empirically cover with ceftriaxone and azithromycin at this time. Patient should discharge home on doxycycline x 7 days total to treat for COPD exacerbation. -Have ordered patient to be on AVAPS for the night. Full code DVT prophylaxis: SCDs, heparin SQ twice daily Attestations 2 Medical Necessity Statement*: Patient requires hospitalization for acute hypercarbic respiratory failure, acute encephalopathy Diagnoses Anxiety F41.9 Acute hypokalemia E87.6 Chronic obstructive pulmonary disease with acute exacerbation J44.1 COPD type: COPD with acute exacerbation Acute respiratory failure with hypoxemia J96.01 Acute exacerbation of chronic obstructive airways disease J44.1 Dehydration E86.0
[2023-12-03] MEDS: budesonide 0.5 mg/2 mL Neb INHALATION (19:30)
[2023-12-04] VITALS (62 sets, daily range): BP systolic 111–186; BP diastolic 65–89; PULSE 78–107; RESP 15–47; TEMP 36.6–37.4; O2SAT 90–99; BMI 27.5
[2023-12-04] MEDS: azithromycin 500 MG in sodium chloride 0.9% 250 ML 250 MG IV (02:13)
[2023-12-04] MEDS: methylPREDNISolone sod succ 40 mg/mL INJ IVP ×2 (02:13→13:32)
[2023-12-04] MEDS: cefTRIAXone 1,000 mg SDV 1000 MG IVP (02:13)
[2023-12-04] MEDS: heparin 5,000 unit/mL INJ 1 mL 5000 UNIT SUBCUT ×2 (02:13→13:32)
[2023-12-04 04:34] LABS: ABG PH Result 7.45 (7.35-7.45); Alveolar-Arterial Oxygen Gradi 1.2 mmHg (5-10); Arterial Blood Gas Hematocrit 33.7 % (37-47); Base Excess ABG 24.1 mmol/L (-2.0-2.0); Blood Gas Allen Test Pos; Blood Gas Sample Site Radial, right; Blood Gas Sample Type Arterial; Carboxyhemoglobin 1.1 %THgb (0.4-20.1); HCO3 ABG 52.1 mmol/L (22-26); HGB O2 Sat 85.4 % (95-100); Ionized Calcium Level - ABG 1.2 mmol/L (1.1-1.4); Methemoglobin 0.4 % (0.4-1.5); Oxygen Device NC; Oxygen Saturation ABG 86.7; PO2 ABG 50.9 mmHg (80.0-100.0)
[2023-12-04 04:35] LABS: ABG PCO2 74.8 mmHg (35-45)
[2023-12-04 05:18] LABS: Basophils % 0.1 %; Hematocrit 35.6 % (36-47); Lymphocytes # 1.3 10^3/uL (0.8-4.8); Lymphocytes % 15.4 %; Mean Corpuscular HGB Conc 31.5 g/dL (30-55); Mean Corpuscular Hemoglobin 30.8 pg (27-33); Mean Corpuscular Volume 97.8 fl (85-98); Mean Platelet Volume 11.6 fL (7.4-10.4); Monocytes # 0.5 10^3/uL (0.2-0.9); Monocytes % 6.5 %; Neutrophils # 6.44 10^3/uL (1.8-7.7); Neutrophils % 77.6 %; Nucleated Red Blood Cells % 0 %; Platelet Count 178 10^3/cmm (157-399); Red Blood Count 3.64 10^6/uL (3.85-5.65); Red Cell Distribution Width 13.3 % (12.1-15.1)
[2023-12-04 05:34] LABS: Anion Gap 13.2 (5-19); Blood Urea Nitrogen 19 mg/dL (6-20); Calcium 9.5 mg/dL (8.5-10.5); Chloride 89 mmol/L (98-107); Creatinine Clr Calc Pharmacy 58.9627; Glucose 145 mg/dL (65-115); Osmolality Calculated 301 mOsm/kg (285-295); Potassium 3.2 mmol/L (3.5-5.1); Sodium 143 mmol/L (136-145)
[2023-12-04 06:02] LABS: Carbon Dioxide 44 mmol/L (22-29)
[2023-12-04 07:38] LABS: Glucose Point of Care 133 mg/dL (70-110)
[2023-12-04] MEDS: budesonide 0.5 mg/2 mL Neb INHALATION ×2 (07:54→20:43)
[2023-12-04] MEDS: ipratropium-albuterol 3 mL Neb INHALATION ×4 (07:54→20:43)
[2023-12-04] MEDS: acetaminophen 325 mg Tablet 650 MG PO (12:09)
--- NOTE | 2023-12-04 14:17 | P.PN_ITS ---
Subjective 2 Subjective: Patient was seen this morning, she continues to complain of shortness of breath, no lightheadedness, dizziness Vitals/I&O/Wt Last Vital Signs Temp 98.7 F 12/04/23 12:00 Pulse 97 12/04/23 12:00 Resp 20 H 12/04/23 12:00 BP 114/79 12/04/23 12:00 Pulse Ox 95 12/04/23 12:00 O2 Del Method Room Air 12/04/23 12:00 O2 Flow Rate 6 12/04/23 11:26 FiO2 45 12/04/23 00:45 12/03/23 12/04/23 12/04/23 22:59 06:59 14:59 Intake Total 250 / 1730 240 / 240 Output Total 450 / 450 Balance -450 / 1030 250 / 1280 240 / 240 Weight last 48 hrs Weight 63.957 kg Weight 63.957 kg Weight 63.14 kg Weight 63.049 kg Weight 63.049 kg Physical Exam 2 Const: COMMON NORMALS: no acute distress and patient oriented x3 Resp: COMMON NORMALS: normal respiratory effort, No retractions and No use of accessory muscles AUSCULTATION: wheezes Cardio: COMMON NORMALS: regular rate, regular rhythm, S1 normal heart sound present and S2 normal heart sound present RATE: regular rate RHYTHM: r egular rhythm HEART SOUNDS: S1 normal heart sound present and S2 normal heart sound present GI: COMMON NORMALS: Normal to inspection, nondistended, normoactive bowel sounds present and non-tender Extremity: COMMON NORMALS: no pedal edema Neuro: COMMON NORMALS: patient oriented x3 Psych: COMMON NORMALS: mental status grossly normal Urinary Catheter Management: Dee: Cath Placed During This Visit: yes Reason for Continuing Indwelling Catheter: Accurate Measurement of Urinary Output in Critically Ill Patients Urinary Catheter Date of Insertion: 12/03/23 Urinary Catheter Time of Insertion: 06:36 Data 12/04/23 04:51 12/04/23 04:51 Micro: Microbiology 12/03/23 08:00 Gram Stain - Final Sputum - Expectorated Sputum A&P Assessment and plan (1) Anxiety: (2) Acute hypokalemia: (3) COPD (chronic obstructive pulmonary disease): Qualifiers: COPD type: COPD with acute exacerbation Qualified Code(s): J44.1 - Chronic obstructive pulmonary disease with (acute) exacerbation (4) Acute respiratory failure with hypoxemia: (5) Acute exacerbation of chronic obstructive airways disease: (6) Dehydration: Plan #COPD exacerbation, CO2 narcosis #Altered mental status, hallucinations, confusion, resolved #End-stage COPD, on 6 L [id number] #ELISA on CKD #History of GERD, hypertension, anxiety #Diastolic heart failure not in exacerbation at this time. ? Placed on Solu-Medrol 40 twice daily, budesonide inhaled twice daily, DuoNeb every 6 hours scheduled ? Check sputum Gram stain and culture ? Baseline creatinine 0.7 in July but for last 3 to 4 months it has been 1.2- 1.3 range. ? Check urine lites, urine chloride ? BNP 622, looks euvolemic stop IV fluids ? Lactic acid 1.6 ? Potassium 3.2, will replete. Seems to be chronic retainer CO2 49. Baseline around 39-40. ? Hold off on Diamox ? Patient has had previous admissions with similar presentation. ? Respiratory viral panel within normal limits ? Urinalysis reviewed. No sign of infection however positive for ketones. ? It seems patient may have had poor oral intak ? Hold off on Lasix at this time. ? Continue pantoprazole, Wellbutrin - Will empirically cover with ceftriaxone and azithromycin at this time. Patient should discharge home on doxycycline x 7 days total to treat for COPD exacerbation. Full code DVT prophylaxis: SCDs, heparin SQ twice daily Plan for today, continue BiPAP therapy continue steroids, continue antibiotics, monitor respiratory status closely Attestations 2 Medical Necessity Statement*: Patient requires hospitalization for respiratory failure secondary COPD exacerbation Diagnoses Anxiety F41.9 Acute hypokalemia E87.6 Chronic obstructive pulmonary disease with acute exacerbation J44.1 COPD type: COPD with acute exacerbation Acute respiratory failure with hypoxemia J96.01 Acute exacerbation of chronic obstructive airways disease J44.1 Dehydration E86.0
[2023-12-04] MEDS: potassium chloride ER 20 mEq Tablet PO (15:41)
[2023-12-04 17:05] LABS: Glucose Point of Care 163 mg/dL (70-110)
[2023-12-05] VITALS (67 sets, daily range): BP systolic 102–122; BP diastolic 71–83; PULSE 76–109; RESP 15–48; TEMP 36.6–36.8; O2SAT 37–100; BMI 27.3
[2023-12-05] MEDS: azithromycin 500 MG in sodium chloride 0.9% 250 ML 250 MG IV (00:50)
[2023-12-05] MEDS: methylPREDNISolone sod succ 40 mg/mL INJ IVP ×2 (00:50→12:27)
[2023-12-05] MEDS: heparin 5,000 unit/mL INJ 1 mL 5000 UNIT SUBCUT ×2 (01:54→12:27)
[2023-12-05] MEDS: cefTRIAXone 1,000 mg SDV 1000 MG IVP (01:54)
[2023-12-05 04:49] LABS: Basophils % 0.1 %; Hematocrit 32.6 % (36-47); Lymphocytes # 0.8 10^3/uL (0.8-4.8); Mean Corpuscular HGB Conc 30.7 g/dL (30-55); Mean Corpuscular Hemoglobin 29.9 pg (27-33); Mean Corpuscular Volume 97.6 fl (85-98); Mean Platelet Volume 11.6 fL (7.4-10.4); Monocytes # 0.1 10^3/uL (0.2-0.9); Monocytes % 1.8 %; Neutrophils % 86.3 %; Nucleated Red Blood Cells % 0 %; Platelet Count 163 10^3/cmm (157-399); Red Blood Count 3.34 10^6/uL (3.85-5.65); Red Cell Distribution Width 13.5 % (12.1-15.1)
[2023-12-05 05:14] LABS: Alanine Aminotransferase 12 U/L (0-33); Albumin Level 3.4 g/dL (3.5-5.2); Alkaline Phosphatase 74 U/L (35-105); Anion Gap 13.9 (5-19); Aspartate Amino Transferase 11 U/L (0-32); Blood Urea Nitrogen 31 mg/dL (6-20); C Reactive Protein 5.2 mg/L (0.0-4.9); Carbon Dioxide 40 mmol/L (22-29); Chloride 96 mmol/L (98-107); Globulin 2.2 g/dL (1.3-4.6); Glomerular Filtration Rate 46.6 mL/min (90-130); Glucose 152 mg/dL (65-115); Magnesium 2.2 mg/dL (1.7-2.3); Osmolality Calculated 312 mOsm/kg (285-295); Potassium 3.9 mmol/L (3.5-5.1); Sodium 146 mmol/L (136-145); Total Bilirubin 0.2 mg/dL (0.15-1.2); Total Protein 5.6 g/dL (6.6-8.7)
[2023-12-05 05:15] LABS: NT Pro B Type Natriuretic Pept 328 pg/mL (0-125)
[2023-12-05] MEDS: ipratropium-albuterol 3 mL Neb INHALATION ×4 (07:11→19:49)
[2023-12-05] MEDS: budesonide 0.5 mg/2 mL Neb INHALATION ×2 (07:11→19:49)
[2023-12-05] MEDS: acetaminophen 325 mg Tablet 650 MG PO (07:28)
--- NOTE | 2023-12-05 14:45 | P.PN_ITS ---
Subjective 2 Subjective: she tells me that she continues to have episodes of shortness of breath with exertion, but denies any fevers, no chills Vitals/I&O/Wt Last Vital Signs Temp 97.9 F 12/05/23 12:00 Pulse 89 12/05/23 12:00 Resp 19 H 12/05/23 12:00 BP 122/77 12/05/23 12:00 Pulse Ox 100 12/05/23 12:00 O2 Del Method Nasal Cannula 12/05/23 12:00 O2 Flow Rate 6 12/05/23 11:21 FiO2 42 12/05/23 04:00 12/04/23 12/05/23 12/05/23 22:59 06:59 14:59 Intake Total 360 / 960 310 / 1270 240 / 240 Output Total 650 / 650 300 / 950 Balance -290 / 310 10 / 320 240 / 240 Weight last 48 hrs Weight 63.503 kg Weight 63.957 kg Physical Exam 2 Const: COMMON NORMALS: no acute distress and patient oriented x3 Resp: COMMON NORMALS: normal respiratory effort, No retractions, No use of accessory muscles and clear to auscultation bilaterally AUSCULTATION: clear to auscultation bilaterally Cardio: COMMON NORMALS: regular rate, regular rhythm, S1 normal heart sound present and S2 normal heart sound present RATE: regular rate RHYTHM: r egular rhythm HEART SOUNDS: S1 normal heart sound present and S2 normal heart sound present GI: COMMON NORMALS: Normal to inspection, nondistended, normoactive bowel sounds present and non-tender Extremity: COMMON NORMALS: no pedal edema Neuro: COMMON NORMALS: patient oriented x3 Psych: COMMON NORMALS: mental status grossly normal Urinary Catheter Management: Dee: Cath Placed During This Visit: yes Reason for Continuing Indwelling Catheter: Acute Urinary Retention or Obstruction Urinary Catheter Date of Insertion: 12/03/23 Urinary Catheter Time of Insertion: 06:36 Data 12/05/23 04:21 12/05/23 04:21 Micro: Microbiology 12/03/23 08:00 Gram Stain - Final Sputum - Expectorated Sputum Sputum Culture - Preliminary A&P Assessment and plan (1) Anxiety: (2) Acute hypokalemia: (3) COPD (chronic obstructive pulmonary disease): Qualifiers: COPD type: COPD with acute exacerbation Qualified Code(s): J44.1 - Chronic obstructive pulmonary disease with (acute) exacerbation (4) Acute respiratory failure with hypoxemia: (5) Acute exacerbation of chronic obstructive airways disease: (6) Dehydration: Plan #COPD exacerbation, CO2 narcosis #Altered mental status, hallucinations, confusion, resolved #End-stage COPD, on 6 L [id number] #ELISA on CKD #History of GERD, hypertension, anxiety #Diastolic heart failure not in exacerbation at this time. ? Placed on Solu-Medrol 40 twice daily, budesonide inhaled twice daily, DuoNeb every 6 hours scheduled ? Check sputum Gram stain and culture ? Baseline creatinine 0.7 in July but for last 3 to 4 months it has been 1.2- 1.3 range. ? Check urine lites, urine chloride ? BNP 622, looks euvolemic stop IV fluids ? Lactic acid 1.6 ? Potassium 3.2, will replete. Seems to be chronic retainer CO2 49. Baseline around 39-40. ? Hold off on Diamox ? Patient has had previous admissions with similar presentation. ? Respiratory viral panel within normal limits ? Urinalysis reviewed. No sign of infection however positive for ketones. ? It seems patient may have had poor oral intak ? Hold off on Lasix at this time. ? Continue pantoprazole, Wellbutrin - Will empirically cover with ceftriaxone and azithromycin at this time. Patient should discharge home on doxycycline x 7 days total to treat for COPD exacerbation. Full code DVT prophylaxis: SCDs, heparin SQ twice daily Plan for today, continue BiPAP therapy continue steroids, continue antibiotics, monitor respiratory status closely Attestations 2 Medical Necessity Statement*: Patient requires hospitalization for COPD exacerbation Diagnoses Anxiety F41.9 Acute hypokalemia E87.6 Chronic obstructive pulmonary disease with acute exacerbation J44.1 COPD type: COPD with acute exacerbation Acute respiratory failure with hypoxemia J96.01 Acute exacerbation of chronic obstructive airways disease J44.1 Dehydration E86.0
[2023-12-05] MEDS: doxycycline 100 mg Tablet PO (18:09)
[2023-12-06] VITALS (12 sets, daily range): BP systolic 114–127; BP diastolic 74–79; PULSE 72–87; RESP 16–22; TEMP 36.7; O2SAT 93–100; BMI 27.3
[2023-12-06] MEDS: heparin 5,000 unit/mL INJ 1 mL 5000 UNIT SUBCUT (02:08)
[2023-12-06 03:19] LABS: Basophils % 0.1 %; Hematocrit 33.6 % (36-47); Lymphocytes # 1.6 10^3/uL (0.8-4.8); Lymphocytes % 17.2 %; Mean Corpuscular HGB Conc 30.7 g/dL (30-55); Mean Corpuscular Hemoglobin 30.2 pg (27-33); Mean Corpuscular Volume 98.5 fl (85-98); Mean Platelet Volume 11.4 fL (7.4-10.4); Monocytes # 0.6 10^3/uL (0.2-0.9); Neutrophils % 75.9 %; Nucleated Red Blood Cells % 0 %; Platelet Count 175 10^3/cmm (157-399); Red Blood Count 3.41 10^6/uL (3.85-5.65); Red Cell Distribution Width 13.6 % (12.1-15.1); White Blood Count 9.49 10^3/uL (3.29-11.43)
[2023-12-06 03:43] LABS: Alanine Aminotransferase 10 U/L (0-33); Albumin Level 3.5 g/dL (3.5-5.2); Alkaline Phosphatase 71 U/L (35-105); Anion Gap 14.4 (5-19); Aspartate Amino Transferase 9 U/L (0-32); Blood Urea Nitrogen 30 mg/dL (6-20); C Reactive Protein 3.6 mg/L (0.0-4.9); Calcium 9.2 mg/dL (8.5-10.5); Chloride 94 mmol/L (98-107); Creatinine Clr Calc Pharmacy 44.0702; Globulin 2.1 g/dL (1.3-4.6); Glomerular Filtration Rate 46.6 mL/min (90-130); Glucose 122 mg/dL (65-115); Magnesium 2.1 mg/dL (1.7-2.3); Osmolality Calculated 309 mOsm/kg (285-295); Potassium 3.4 mmol/L (3.5-5.1); Sodium 146 mmol/L (136-145); Total Bilirubin 0.2 mg/dL (0.15-1.2); Total Protein 5.6 g/dL (6.6-8.7)
[2023-12-06 03:46] LABS: NT Pro B Type Natriuretic Pept 758 pg/mL (0-125)
[2023-12-06 03:49] LABS: Carbon Dioxide 41 mmol/L (22-29)
[2023-12-06] MEDS: buPROPion XL (24 HR) 150 mg Tablet PO (05:35)
[2023-12-06] MEDS: budesonide 0.5 mg/2 mL Neb INHALATION (07:32)
[2023-12-06] MEDS: ipratropium-albuterol 3 mL Neb INHALATION (07:32)
[2023-12-06] MEDS: lactulose oral liq 20 gm/30 mL UDC PO (09:48)
[2023-12-06] MEDS: predniSONE 20 mg Tablet 40 MG PO (09:48)
[2023-12-06] MEDS: doxycycline 100 mg Tablet PO (09:48)
[2023-12-06] MEDS: acetaminophen 325 mg Tablet 650 MG PO (09:48)
--- NOTE | 2023-12-06 11:03 | P.DS_ITS ---
Discharge Providers Date of Admission: 12/03/23 06:56 Date of Discharge: December 06, 2023 Attending Provider at Admission: Angle Rizzo MD Attending Provider at Discharge: Kirk Pandya MD Primary Care Provider: Reena López MD Diagnoses at Discharge Discharge Diagnosis (1) Anxiety: Status: Acute (2) Acute hypokalemia: Status: Acute (3) COPD (chronic obstructive pulmonary disease): Status: Acute Qualifiers: COPD type: COPD with acute exacerbation Qualified Code(s): J44.1 - Chronic obstructive pulmonary disease with (acute) exacerbation (4) Acute respiratory failure with hypoxemia: Status: Resolved (5) Acute exacerbation of chronic obstructive airways disease: Status: Acute (6) Dehydration: Status: Acute Reason for Visit Reason for Visit: SOB pale incoherent occasionally Hospital Course Hospital Course Estelle Pascual is a 53 year old female With past medical history of COPD has a BiPAP at home presented to the hospital for altered mental status and being obtunded. She was brought in by her daughter. She has been confused and having hallucinations. She is on 6 L of oxygen [id number]. Has been having increased thick mucus drainage today and has not been wearing her BiPAP lately. Denies fever chills nausea vomiting diarrhea recent ill contacts. There is a history of TIA listed in the chart from prior. She is a current everyday smoker. History obtained from chart as patient is not able to answer many questions. She is very lethargic appearing however is able to state her name and date of . Currently on BiPAP. ABG reviewed. 7.4/106. Respiratory viral panel ordered by ER. EKG without any acute ischemic changes. Chest x-ray shows no acute infiltrate. Potassium 3.2, chloride 74, creatinine 1.2. BNP 622. This is a 53-year-old female, who presents to [facility] for COPD exacerbation, CO2 narcosis, altered mental status, end-stage COPD who was manage d in cardiac stepdown unit, on BiPAP therapy, broad-spectrum antibiotic therapy, steroid therapy, overall clinically improved. Patient will be discharged on a prednisone taper, doxycycline, continue home inhaler therapy. I had a detailed discussion with patient that she should be compliant with her home 6 L, she must use her BiPAP throughout the night, and as needed during the day if she feels s hort of breath. Nonetheless, I had a very extensive discussion with patient about quitting smoking, morbidity and mortality associated, she tells her that she has been smoking up to 3 packs of cigarettes a day. Discussed that given her end-stage COPD she has a high risk of morbidity and mortality, she voiced understanding, all questions answered, she tells me that she wants to try to taper down off the cigarettes by at least 5 cigarettes a week or so. Discussed that I would recommend for her to completely stop cigarettes, morbidity and mortality associated, she voiced understanding, all questions answered Physical Exam Const: COMMON NORMALS: no acute distress and patient oriented x3 Resp: COMMON NORMALS: normal respiratory effort, No retractions, No use of accessory muscles and clear to auscultation bilaterally AUSCULTATION: clear to auscultation bilaterally Cardio: COMMON NORMALS: regular rate, regular rhythm, S1 normal heart sound present and S2 normal heart sound present RATE: regular rate RHYTHM: regular rhythm HEART SOUNDS: S1 normal heart sound present and S2 normal heart sound present GI: COMMON NORMALS: Normal to inspection, nondistended, normoactive bowel sounds present and non-tender Extremity: COMMON NORMALS: no pedal edema Neuro: COMMON NORMALS: patient oriented x3 Psych: COMMON NORMALS: mental status grossly normal Urinary Catheter Management: Dee: Cath Placed During This Visit: yes, but has since been removed by the nurse Reason for Continuing Indwelling Catheter: Not indwelling catheter Urinary Catheter Date of Insertion: 12/03/23 Urinary Catheter Time of Insertion: 06:36 Date Urinary Catheter Removed: 12/05/23 Time Urinary Catheter Discontinued: 09:00 Discharge Data Studies Completed and Pending Completed Studies During Hospitalization Category Date Time Status CT head wo con* [id number] Stat Cat Scan 12/03/23 01:37 Completed XR chest 1V portable [id number] Stat Exams 12/02/23 21:12 Completed Pending at discharge Category Date Time Status C Reactive Protein AM LABS Lab 12/07/23 04:00 Ordered Complete Blood Count w/Auto AM LABS Lab 12/07/23 04:00 Ordered Comprehensive Metabolic Panel AM LABS Lab 12/07/23 04:00 Ordered Magnesium AM LABS Lab 12/07/23 04:00 Ordered NT Pro B Type Natriuretic Pept QAM Lab 12/07/23 06:00 Ordered Sputum Culture and Gram Stain Stat Lab 12/03/23 08:00 Results Radiology Impressions Chest X-Ray 12/02/23 21:12 IMPRESSION: No acute findings within the chest. Emphysema. Head CT 12/03/23 01:37 IMPRESSION: No acute intracranial abnormality. Laboratory Results WBC 9.49 10^3/uL (3.29-11.43) 12/06/23 02:49 RBC 3.41 10^6/uL (3.85-5.65) L 12/06/23 02:49 Hgb 10.30 g/dL (11.27-16.99) L 12/06/23 02:49 Hct 33.6 % (36-47) L 12/06/23 02:49 MCV 98.5 fl (85-98) H 12/06/23 02:49 MCH 30.2 pg (27-33) 12/06/23 02:49 MCHC 30.7 g/dL (30-55) 12/06/23 02:49 RDW 13.6 % (12.1-15.1) 12/06/23 02:49 Plt Count 175 10^3/cmm (157-399) 12/06/23 02:49 MPV 11.4 fL (7.4-10.4) H 12/06/23 02:49 Neut % (Auto) 75.9 % 12/06/23 02:49 Lymph % (Auto) 17.2 % 12/06/23 02:49 Bailey % (Auto) 6.0 % 12/06/23 02:49 Eos % (Auto) 0.0 % 12/06/23 02:49 Baso % (Auto) 0.1 % 12/06/23 02:49 Neut # (Auto) 7.20 10^3/uL (1.8-7.7) 12/06/23 02:49 Lymph # (Auto) 1.6 10^3/uL (0.8-4.8) 12/06/23 02:49 Bailey # (Auto) 0.6 10^3/uL (0.2-0.9) 12/06/23 02:49 Eos # (Auto) 0.0 10^3/uL (0.0-0.8) 12/06/23 02:49 Baso # (Auto) 0.0 10^3/uL (0.0-0.1) 12/06/23 02:49 Nucleated RBC % (auto) 0 % 12/06/23 02:49 Nucleated RBCs # 0.0 /100WBC 12/06/23 02:49 D-Dimer 1.66 ug/mLFEU (0-0.59) H 12/03/23 03:10 Specimen Type Arterial 12/04/23 04:24 Sample Site Radial, right 12/04/23 04:24 ABG pH 7.45 (7.35-7.45) 12/04/23 04:24 ABG pCO2 74.8 mmHg (35-45) H* 12/04/23 04:24 ABG pO2 50.9 mmHg (80.0-100.0) L 12/04/23 04:24 ABG PO2/FiO2 Ratio 145 12/03/23 03:33 ABG HCO3 52.1 mmol/L (22-26) H 12/04/23 04:24 ABG O2 Saturation 86.7 12/04/23 04:24 ABG Base Excess 24.1 mmol/L (-2.0-2.0) H 12/04/23 04:24 Braxton Test Pos 12/04/23 04:24 A-a O2 Gradient 1.2 mmHg (5-10) L 12/04/23 04:24 Hematocrit 33.7 % (37-47) L 12/04/23 04:24 Hgb O2 Saturation 85.4 % (95-100) L 12/04/23 04:24 Carboxyhemoglobin 1.1 %THgb (0.4-20.1) 12/04/23 04:24 Methemoglobin 0.4 % (0.4-1.5) 12/04/23 04:24 Total Hemoglobin 11.0 g/dL (12-16) L 12/04/23 04:24 Sodium 142.0 mmol/L (131-143) 12/04/23 04:24 Potassium 3.0 mmol/L (3.5-5.0) L 12/04/23 04:24 Glucose 139.0 mg/dL (70-115) H 12/04/23 04:24 Ionized Calcium 1.2 mmol/L (1.1-1.4) 12/04/23 04:24 O2 Delivery Device Nc 12/04/23 04:24 O2 Liters/Min 6.0 % 12/04/23 04:24 FiO2 40.0 % 12/03/23 03:33 Magneto Specialist ID [email or web address] 12/04/23 04:24 Sodium 146 mmol/L (136-145) H 12/06/23 02:49 Potassium 3.4 mmol/L (3.5-5.1) L 12/06/23 02:49 Chloride 94 mmol/L (98-107) L 12/06/23 02:49 Carbon Dioxide 41 mmol/L (22-29) H 12/06/23 02:49 Anion Gap 14.4 (5-19) 12/06/23 02:49 BUN 30 mg/dL (6-20) H 12/06/23 02:49 Creatinine 1.2 mg/dL (0.5-0.9) H 12/06/23 02:49 GFR Calculation 46.6 mL/min (90-130) L 12/06/23 02:49 Glucose 122 mg/dL (65-115) H 12/06/23 02:49 POC Glucose 163 mg/dL (70-110) H 12/04/23 16:57 Calculated Osmolality 309 mOsm/kg (285-295) H 12/06/23 02:49 Lactic Acid 0.9 mmol/L (0.5-2.2) 12/03/23 03:10 Calcium 9.2 mg/dL (8.5-10.5) 12/06/23 02:49 Magnesium 2.1 mg/dL (1.7-2.3) 12/06/23 02:49 Total Bilirubin 0.2 mg/dL (0.15-1.2) 12/06/23 02:49 AST 9 U/L (0-32) 12/06/23 02:49 ALT 10 U/L (0-33) 12/06/23 02:49 Alkaline Phosphatase 71 U/L (35-105) 12/06/23 02:49 Ammonia 29 umol/L (11-51) 12/03/23 03:10 Troponin T Baseline 22 ng/L (0-10) H 12/02/23 21:15 Troponin T 120 Minute 20.79 ng/L (0-10) H 12/02/23 23:31 Delta Troponin T -1.21 ABS# (0-10) L 12/02/23 23:31 Troponin T Hi Sens 6Hr 26.97 ng/L (0-10) H 12/03/23 03:10 Troponin T Hi Sens 6Hr Delta 4.97 ng/L (0-12) 12/03/23 03:10 C-Reactive Protein 3.6 mg/L (0.0-4.9) 12/06/23 02:49 NT-Pro-B Natriuret Pep 758 pg/mL (0-125) H 12/06/23 02:49 Total Protein 5.6 g/dL (6.6-8.7) L 12/06/23 02:49 Albumin 3.5 g/dL (3.5-5.2) 12/06/23 02:49 Globulin 2.1 g/dL (1.3-4.6) 12/06/23 02:49 Procalcitonin 0.08 ng/mL (0-0.5) 12/03/23 03:10 TSH 0.79 uIU/mL (0.27-4.20) 12/03/23 03:10 Urine Color Yellow (Yellow) 12/02/23 23:00 Urine Appearance Slightly cloudy (CLEAR) 12/02/23 23:00 Urine pH 5 (5-7) 12/02/23 23:00 Ur Specific [place] 1.025 (1.005-1.030) 12/02/23 23:00 Urine Protein 1+ (Negative) H 12/02/23 23:00 Urine Glucose (UA) Norm (Normal) 12/02/23 23:00 Urine Ketones 1+ (Negative) H 12/02/23 23:00 Urine Blood Neg (Negative) 12/02/23 23:00 Urine Nitrate Negative (Negative) 12/02/23 23:00 Urine Bilirubin 1+ (Negative) H 12/02/23 23:00 Urine Urobilinogen 1 mg/dL (Negative) H 12/02/23 23:00 Ur Leukocyte Esterase Negative (Negative) 12/02/23 23:00 Urine RBC 0-4 /hpf (0-2) H 12/02/23 23:00 Urine WBC None /hpf (0-5) 12/02/23 23:00 Ur Squamous Epith Cells None /hpf (0-5) 12/02/23 23:00 Amorphous Sediment Not Reportable 12/02/23 23:00 Urine Bacteria Trace /hpf (NONE) 12/02/23 23:00 Hyaline Casts 5-10 /lpf H 12/02/23 23:00 Urine Mucus 2+ /hpf 12/02/23 23:00 Ur Random Sodium 15 mmol/L 12/02/23 23:00 Ur Random Potassium 31 mmol/L 12/02/23 23:00 Ur Random Chloride < 10 mmol/L 12/02/23 23:00 Urine Opiates Screen Negative ng/mL (Negative) 12/02/23 23:00 Ur Barbiturates Screen Negative ng/mL (Negative) 12/02/23 23:00 Ur Phencyclidine Scrn Negative ng/mL (Negative) 12/02/23 23:00 Ur Amphetamines Screen Negative ng/mL (Negative) 12/02/23 23:00 U Benzodiazepines Scrn Negative ng/mL (Negative) 12/02/23 23:00 Urine Cocaine Screen Negative ng/mL (Negative) 12/02/23 23:00 U Marijuana (THC) Screen Negative ng/mL (Negative) 12/02/23 23:00 Adenovirus (PCR) Not detected (NOT DETECT) 12/02/23 21:35 C. pneumoniae DNA (PCR) Not detected (NOT DETECT) 12/02/23 21:35 Coronavirus 229E (PCR) Not detected (NOT DETECT) 12/02/23 21:35 Human Metapneumovir PCR Not detected (NOT DETECT) 12/02/23 21:35 Influenza A (H1) PCR Not detected (NOT DETECT) 12/02/23 21:35 Influ A (H1/09) PCR Not detected (NOT DETECT) 12/02/23 21:35 Influenza A (H3) PCR Not detected (NOT DETECT) 12/02/23 21:35 Influenza Type A (PCR) Not detected (NOT DETECT) 12/02/23 21:35 Influenza Type B (PCR) Not detected (NOT DETECT) 12/02/23 21:35 M. pneumoniae (PCR) Not detected (NOT DETECT) 12/02/23 21:35 Parainfluenza 1 (PCR) Not detected (NOT DETECT) 12/02/23 21:35 Parainfluenza 2 (PCR) Not detected (NOT DETECT) 12/02/23 21:35 Parainfluenza 3 (PCR) Not detected (NOT DETECT) 12/02/23 21:35 Parainfluenza 4 (PCR) Not detected (NOT DETECT) 12/02/23 21:35 RSV Type A (PCR) Not detected (NOT DETECT) 12/02/23 21:35 RSV Type B (PCR) Not detected (NOT DETECT) 12/02/23 21:35 Entero/Rhino (PCR) Not detected (NOT DETECT) 12/02/23 21:35 SARS-CoV-2 (PCR) Not detected (NOT DETECT) 12/02/23 21:35 Vitals Last Vital Signs Temp 98.1 F 12/06/23 10:00 Pulse 74 12/06/23 10:00 Resp 20 H 12/06/23 10:00 BP 127/74 12/06/23 10:00 Pulse Ox 100 12/06/23 08:00 O2 Del Method Nasal Cannula 12/06/23 08:00 O2 Flow Rate 5 12/06/23 07:36 FiO2 42 12/06/23 03:23 Discharge Plan Discharge Patient Disposition: Home Condition: Stable Prescriptions: New prednisone 10 mg tablet 10 mg PO DIRECTED Qty: 53 0RF Rx Instructions: 4 tabs a day for 5 days, 3 tabs for 5 days, 2 tabs for 5 days, 1 tab for 5 days,0.5 tab for 5 days doxycycline monohydrate 100 mg Tablet 100 mg PO BID 7 Days Qty: 14 0RF potassium chloride [Klor-Con M20] 20 mEq tablet,ER particles/crystals 20 meq PO DAILY 30 Days Qty: 30 0RF Continued (DME) oxygen and concentrator See Rx Instructions .Route .MEDSUPPLY Qty: 1 0RF Rx Instructions: use 2L O2 via NC with exercise pantoprazole 40 mg tablet,delayed release (DR/EC) 40 mg PO DAILY Qty: 30 3RF furosemide 40 mg tablet 40 mg PO DAILY@0800 Qty: 30 3RF (DME) Portable oxygen concentrator See Rx Instructions .Route .MEDSUPPLY Qty: 1 0RF Rx Instructions: As directed (DME) Inspire Portable oxygen concentrator See Rx Instructions .Route .MEDSUPPLY Qty: 1 0RF Rx Instructions: Rate 4L O2 (DME) Portable Oxygen Concentrator 2-4L/NC See Rx Instructions .Route .MEDSUPPLY Qty: 1 0RF Rx Instructions: Continuous oxygen at 2-4L/NC. (DME) Portable Oxygen Concentrator 2-4L/NC 0 .Route .MEDSUPPLY tiotropium bromide [Spiriva with HandiHaler] 18 mcg capsule, w/inhalation device 1 cap inhalation DAILY Qty: 60 0RF Rx Instructions: puncture 1 cap using device; one dose = 2 inhalations ipratropium-albuterol 0.5 mg-3 mg(2.5 mg base)/3 mL solution for nebulization 3 ml inhalation Q8H Qty: 90 0RF formoterol fumarate [Perforomist] 20 mcg/2 mL solution for nebulization 2 ml inhalation BID Qty: 120 0RF bupropion HCl 150 mg tablet extended release 24 hr 150 mg PO QAM Qty: 30 3RF budesonide-formoterol [Symbicort] 160-4.5 mcg/actuation HFA aerosol inhaler 2 puff INHALATION BID Qty: 10.2 2RF albuterol sulfate [Ventolin HFA] 90 mcg/actuation HFA aerosol inhaler 2 puff inhalation QID PRN (Reason: Shortness Of Breath) Qty: 8.5 1RF polyethylene glycol 3350 17 gram/dose powder 17 g PO BID PRN (Reason: Constipation) sennosides [Senna Lax] 8.6 mg Tablet 8.6 mg PO BID PRN (Reason: Constipation) ferrous gluconate 324 mg (37.5 mg iron) tablet 37.5 mg PO BIDWM albuterol sulfate 2.5 mg /3 mL (0.083 %) solution for nebulization See Rx Instructions .ROUTE .COMPLEX PRN (Reason: sob) Qty: 180 2RF Dose Instruction: INHALE ONE vial via NEBULIZER FOUR TIMES DAILY NEEDED FOR SHORTNESS OF BREATH OR wheezing Rx Instructions: INHALE ONE vial via NEBULIZER FOUR TIMES DAILY NEEDED FOR SHORTNESS OF BREATH OR wheezing Discharge Orders: Discharge Order (Routine); Ordered 12/06/23 Ordered By: Kirk Pandya Referrals: Reena López MD [Primary Care Provider] - Discharge Diet: Cardiac Discharge Activity: Resume usual activity Patient Instructions: Opioid Safety Activity Restrictions/Additional Instructions: - See your primary care provider next week - recheck potassium levels next week -?please abstain from smoking Discharge Attestations Time Spent in Discharge Care*: greater than 30 min Time Spent in Smoking Cessation: more than 10 minutes Morbidity and mortality associate smoking Status at Discharge: Cognitive status at discharge: cognitively intact , Behavioral status at discharge: cooperative , Quality Metrics Clinical Quality Measures [ No reported AMI, CVA or VTE this stay] Coding Level of Care Code 69485 Total time (in minutes) for Discharge: 45 Diagnoses Anxiety F41.9 Acute hypokalemia E87.6 Chronic obstructive pulmonary disease with acute exacerbation J44.1 COPD type: COPD with acute exacerbation Acute respiratory failure with hypoxemia J96.01 Acute exacerbation of chronic obstructive airways disease J44.1 Dehydration E86.0
--- NOTE | 2023-12-06 12:32 | PC.NURSE ---
Discharge Note Patient discharged to home via POV accompanied by family. Discharge instructions reviewed with patient and/or route sales representative. Mobile pharmacy medications and/or prescriptions provided. Belongings/home medications returned.
== END 2023-12-06 12:32 | disposition home or self-care (01) | DRG 190 ==
LOC: ER 22:56 → CSU 23:38
PROVIDERS: Admitting Provider Internal Medicine; Emergency Provider Emergency Medicine; PCP Family Medicine; Visit Provider Family Medicine
DX: J44.1 Chronic obstructive pulmonary disease with (acute) exacerbation (principal); J96.01 Acute respiratory failure with hypoxia; I13.0 Hypertensive heart and chronic kidney disease with heart failure and stage 1 through stage 4 chronic kidney disease, or unspecified chronic kidney disease; I50.32 Chronic diastolic (congestive) heart failure; G93.40 Encephalopathy, unspecified; N17.9 Acute kidney failure, unspecified; F17.210 Nicotine dependence, cigarettes, uncomplicated; N18.9 Chronic kidney disease, unspecified; K21.9 Gastro-esophageal reflux disease without esophagitis; F41.9 Anxiety disorder, unspecified; E87.6 Hypokalemia; E86.0 Dehydration; Z99.81 Dependence on supplemental oxygen; Z86.73 Personal history of transient ischemic attack (TIA), and cerebral infarction without residual deficits
CPT/HCPCS: 36415; 36416; 36600; 51702; 70450; 71045; 80048; 80051; 80053; 80306; 81001; 82140; 82330; 82436; 82805; 82962; 83605; 83735; 83880; 84133; 84145; 84300; 84443; 84484; 85025; 85378; 86140; 87070; 87205; 87486; 87581; 87633; 93005; 94640; 94660; 96360; 96372; 97116; 97161; 99291; G0378; J0456; J0696; J1644; J2919; J3480; J7030; J7050; J7512; J7626

== ENCOUNTER 2023-12-16 10:19 | Inpatient (IN) | payer MEDICAID, SELFPAY ==
[2023-12-16] VITALS (84 sets, daily range): BP systolic 107–172; BP diastolic 72–113; PULSE 76–110; RESP 10–30; TEMP 36.3–38; O2SAT 72–97; BMI 25.3
--- NOTE | 2023-12-16 10:31 | XR_ITS ---
WS: [id number] Examination: XR chest 1V portable [id number] Reason for Exam: dyspnea/cough Date: December 16, 2023 Comparison: December 02, 2023 Findings: The cardiomediastinal silhouette is not enlarged on this AP portable film. The lungs are hyperinflated The interstitial markings are mildly prominent. This may be chronic in nature. There is no evidence o f edema or effusion. There is no consolidation. XR/XR chest 1V portable [id number] IMPRESSION: The lungs appear hyperinflated without focal infiltrate or failure.
--- NOTE | 2023-12-16 10:36 | ED_ITS ---
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 She was discharged for an episode of hypercapnia from 12 01 through 8 to. At home she has been on 6 L by nasal cannula her oxygen saturation when he came in the room on 6 L was at 100% we titrated her down and on 3 she is still maintaining sats 98 to 99%. She is tachypneic and lethargic she is able to answer a few questions shaking her head yes or no but does not verbalize much history from the daughters who are at the bedside. She denies chest pain or abdominal pain Associated symptoms: Deny abdominal pain, chest pain or fever(s) Related Data Home Medications Medication Instructions Recorded Confirmed Portable Oxygen Concentrator 06/18/23 12/16/23 ferrous gluconate 324 mg (37.5 mg 37.5 mg PO BIDWM 07/18/23 12/16/23 iron) tablet polyethylene glycol 3350 17 17 g PO BID PRN Constipation 07/18/23 12/16/23 gram/dose oral powder sennosides 8.6 mg tablet (Senna 8.6 mg PO BID PRN Constipation 07/18/23 12/16/23 Lax) Previous Rx's Medication Instructions Recorded oxygen and concentrator #1 ea 03/03/20 Inspire Portable oxygen #1 ea 10/30/22 concentrator Portable oxygen concentrator #1 ea 10/30/22 bupropion HCl 150 mg 24 hr tablet, 150 mg PO QAM #30 tabs 04/16/23 extended release Portable Oxygen Concentrator #1 ea 06/18/23 albuterol sulfate 2.5 mg/3 mL See Rx Instructions .Route 07/25/23 (0.083 %) solution for nebulization .COMPLEX PRN sob #180 mL furosemide 40 mg tablet 40 mg PO DAILY@0800 #30 tabs 07/30/23 pantoprazole 40 mg tablet,delayed 40 mg PO DAILY #30 tabs 07/30/23 release albuterol sulfate 90 mcg/actuation 2 puff inhalation QID PRN 10/25/23 aerosol inhaler (Ventolin HFA) Shortness Of Breath #8.5 grams formoterol fumarate 20 mcg/2 mL 2 ml inhalation BID COPD #120 mL 11/01/23 solution for nebulization (Perforomist) ipratropium 0.5 mg-albuterol 3 mg 3 ml inhalation Q8H shortness of 11/01/23 (2.5 mg base)/3 mL nebulization breath or wheezing #90 mL soln tiotropium bromide 18 mcg capsule 1 cap inhalation DAILY #60 11/01/23 with inhalation device (Spiriva inhalations with HandiHaler) potassium chloride 20 mEq 20 meq PO DAILY 30 days #30 tabs 12/06/23 tablet,extended release(part/cryst) (Klor-Con M) prednisone 10 mg tablet 10 mg PO DIRECTED #53 tabs 12/06/23 Allergies Allergy/AdvReac Type Severity Reaction Status Date / Time hydrocodone Allergy ADR-Vomitin Verified 12/16/23 10:33 g tramadol Allergy ADR-Itching Verified 12/16/23 10:33 Review of Systems 2 Const: Reports: fatigue; Denies: fever(s) or chills Card: Denies: chest pain Resp: Reports: dyspnea, non-productive cough and wheezing GI: Denies: abdominal pain : Denies: dysuria, urinary frequency or urinary urgency Musc: Denies: neck pain or back pain Skin/Breast: Denies: rash PFSH ED 2 PFSH: Medical History Chronic hypercapnic respiratory failure Upper GI bleeding TIA (transient ischemic attack) Dependence on supplemental oxygen HTN (hypertension) Acute exacerbation of chronic obstructive airways disease Tenosynovitis of foot Fracture of fifth metatarsal bone of right foot Gastroesophageal reflux disease Hypertension Anxiety COPD (chronic obstructive pulmonary disease) Right ankle pain Right foot pain Surgical History Hx of tubal ligation History of tonsillectomy and adenoidectomy Hx of cholecystectomy Hx of hernia repair Hx of section Hx of colonoscopy (~2012) Family History Father Cancer lung Heart disease Mother Heart disease Social History Smoking and tobacco/nicotine status: current every day tobacco/nicotine user cigarettes Packs smoked per day: 1 Years cigarettes smoked: 45 Second hand smoke exposure: Yes Alcohol intake: former Former alcohol use details: sober x 20 yrs Substance/Drug Use: never Caregiver/support person: Yes Lives independently: Yes Household members: spouse and children Marital status: service: No Current occupational status: unemployed Current gender identity: Female Special lauryn needs: No Agree to transfusion: No Physical Exam 2 Const: GENERAL APPEARANCE: lethargic and ill appearing O RIENTATION/CONSCIOUSNESS: Yes lethargic HENMT: COMMON NORMALS: normocephalic, atraumatic and hearing grossly normal bilaterally HEAD & SCALP: normocephalic and atraumatic Resp: EFFORT & INSPECTION: Yes abnormal respiratory pattern, Yes respiratory distress and Yes uses accessory muscles AUSCULTATION: rhonchi and wheezes Cardio: COMMON NORMALS: regular rate, regular rhythm and No murmurs present (Cardio) RATE: regular rate RHYTHM: regular rhythm GI: COMMON NORMALS: Soft to palpation and No hepatosplenomegaly present A USCULTATION: Yes normoactive bowel sounds PALPATION: Yes Soft to palpation, No Tenderness to palpation present (GI), No Guarding due to palpation present (GI) and Yes No hepatosplenomegaly present Extremity: COMMON NORMALS: normal to inspection, capillary refill normal, no clubbing, cyanosis or edema, no calf tenderness and no pedal edema Neuro: SENSORIUM/ORIENTATION: Yes lethargic Skin: COMMON NORMALS: no rashes or lesions noted GENERAL SKIN EXAM: no rashes or lesions noted Course 2 Vital Signs: Vital signs: Vital Signs Pulse Rate 86 12/16/23 13:26 Respiratory Rate 30 H 12/16/23 10:52 Blood Pressure 131/113 12/16/23 13:26 Pulse Oximetry 96 12/16/23 13:26 Oxygen Delivery Me thod BiPAP 12/16/23 13:26 Oxygen Flow Rate 6 12/16/23 10:23 Fraction of Inspir ed Oxygen 36 12/16/23 10:52 MDM - SOB/Dyspnea Medical Decision Making Patient presents with acute respiratory failure with hypercapnia. We are able to titrate her oxygen now but her pCO2 is markedly elevated. They also complained of a ankle injury yesterday x-ray of the ankle was negative there is no head injury associated with this. White count is normal hemoglobin is stable. Her potassium is slightly elevated we have giving IV fluids this will need to be rechecked discussed with hospitalist will admit to the ICU. Lab Data 12/16/23 11:47 12/16/23 11:47 Labs/Radiology: Radiology Impressions Chest X-Ray 12/16/23 10:31 IMPRESSION: The lungs appear hyperinflated without focal infiltrate or failure. Ankle X-Ray 12/16/23 12:20 Impression: No displaced fracture seen. Laboratory Results WBC 9.47 10^3/uL (3.29-11.43) 12/16/23 11:47 RBC 4.19 10^6/uL (3.85-5.65) 12/16/23 11:47 Hgb 12.70 g/dL (11.27-16.99) 12/16/23 11:47 Hct 44.5 % (36-47) 12/16/23 11:47 MCV 106.2 fl (85-98) H 12/16/23 11:47 MCH 30.3 pg (27-33) 12/16/23 11:47 MCHC 28.5 g/dL (30-55) L 12/16/23 11:47 RDW 13.6 % (12.1-15.1) 12/16/23 11:47 Plt Count 173 10^3/cmm (157-399) 12/16/23 11:47 MPV 10.5 fL (7.4-10.4) H 12/16/23 11:47 Neut % (Auto) 83.6 % 12/16/23 11:47 Lymph % (Auto) 10.6 % 12/16/23 11:47 [place] % (Auto) 4.6 % 12/16/23 11:47 Eos % (Auto) 0.4 % 12/16/23 11:47 Baso % (Auto) 0.2 % 12/16/23 11:47 Neut # (Auto) 7.91 10^3/uL (1.8-7.7) H 12/16/23 11:47 Lymph # (Auto) 1.0 10^3/uL (0.8-4.8) 12/16/23 11:47 [place] # (Auto) 0.4 10^3/uL (0.2-0.9) 12/16/23 11:47 Eos # (Auto) 0.0 10^3/uL (0.0-0.8) 12/16/23 11:47 Baso # (Auto) 0.0 10^3/uL (0.0-0.1) 12/16/23 11:47 Nucleated RBC % (auto) 0 % 12/16/23 11:47 Nucleated RBCs # 0.0 /100WBC 12/16/23 11:47 Specimen Type Arterial 12/16/23 10:54 Sample Site Radial, right 12/16/23 10:54 ABG pH 7.28 (7.35-7.45) L 12/16/23 10:54 ABG pCO2 104.0 mmHg (35-45) H* 12/16/23 10:54 ABG pO2 72.1 mmHg (80.0-100.0) L 12/16/23 10:54 ABG PO2/FiO2 Ratio 200 12/16/23 10:54 ABG HCO3 48.9 mmol/L (22-26) H 12/16/23 10:54 ABG O2 Saturation 94.4 12/16/23 10:54 ABG Base Excess 17.4 mmol/L (-2.0-2.0) H 12/16/23 10:54 [place] Test Pos 12/16/23 10:54 A-a O2 Gradient 8.2 mmHg (5-10) 12/16/23 10:54 Hematocrit 38.2 % (37-47) 12/16/23 10:54 Hgb O2 Saturation 93.8 % (95-100) L 12/16/23 10:54 Carboxyhemoglobin 1.4 %THgb (0.4-20.1) 12/16/23 10:54 Methemoglobin < 0.0 % (0.4-1.5) L 12/16/23 10:54 Total Hemoglobin 12.5 g/dL (12-16) 12/16/23 10:54 Sodium 148.0 mmol/L (131-143) H 12/16/23 10:54 Potassium 5.4 mmol/L (3.5-5.0) H 12/16/23 10:54 Glucose 129.0 mg/dL (70-115) H 12/16/23 10:54 Ionized Calcium 1.3 mmol/L (1.1-1.4) 12/16/23 10:54 O2 Delivery Device Bipap 12/16/23 10:54 FiO2 36.0 % 12/16/23 10:54 PEEP 8.0 cmH20 12/16/23 10:54 Credit Risk Manager ID glc 12/16/23 10:54 Sodium 146 mmol/L (136-145) H 12/16/23 11:47 Potassium 5.2 mmol/L (3.5-5.1) H 12/16/23 11:47 Chloride 96 mmol/L (98-107) L 12/16/23 11:47 Carbon Dioxide 42 mmol/L (22-29) H* 12/16/23 11:47 Anion Gap 13.2 (5-19) 12/16/23 11:47 BUN 17 mg/dL (6-20) 12/16/23 11:47 Creatinine 0.8 mg/dL (0.5-0.9) 12/16/23 11:47 GFR Calculation 74.5 mL/min (90-130) L 12/16/23 11:47 Glucose 134 mg/dL (65-115) H 12/16/23 11:47 Calculated Osmolality 306 mOsm/kg (285-295) H 12/16/23 11:47 Lactic Acid 1.5 mmol/L (0.5-2.2) 12/16/23 11:47 Calcium 9.1 mg/dL (8.5-10.5) 12/16/23 11:47 Total Bilirubin 0.3 mg/dL (0.15-1.2) 12/16/23 11:47 AST 13 U/L (0-32) 12/16/23 11:47 ALT 123 U/L (0-33) H 12/16/23 11:47 Alkaline Phosphatase 79 U/L (35-105) 12/16/23 11:47 Total Protein 7.0 g/dL (6.6-8.7) 12/16/23 11:47 Albumin 4.3 g/dL (3.5-5.2) 12/16/23 11:47 Globulin 2.7 g/dL (1.3-4.6) 12/16/23 11:47 Urine Color Yellow (Yellow) 12/16/23 12:48 Urine Appearance Clear (CLEAR) 12/16/23 12:48 Urine pH 7.0 (5-7) 12/16/23 12:48 Ur Specific [place] 1.023 (1.005-1.030) 12/16/23 12:48 Urine Protein 1+ (Negative) A 12/16/23 12:48 Urine Glucose (UA) Negative (Normal) 12/16/23 12:48 Urine Ketones 1+ (Negative) H 12/16/23 12:48 Urine Blood Negative (Negative) 12/16/23 12:48 Urine Nitrate Negative (Negative) 12/16/23 12:48 Urine Bilirubin Negative (Negative) 12/16/23 12:48 Urine Urobilinogen 1.0 mg/dL (Negative) 12/16/23 12:48 Ur Leukocyte Esterase Negative (Negative) 12/16/23 12:48 Urine RBC 0-2 /hpf (0-2) 12/16/23 12:48 Urine WBC 0-5 /hpf (0-5) 12/16/23 12:48 Ur Squamous Epith Cells 0-5 /hpf (0-5) 12/16/23 12:48 Amorphous Sediment Not Reportable 12/16/23 12:48 Urine Bacteria None seen /hpf (NONE) 12/16/23 12:48 Hyaline Casts 2.87 /lpf 12/16/23 12:48 Coronavirus 229E (PCR) Not detected (NOT DETECT) 12/16/23 10:55 Influenza Type A Ag negative (Negative) 12/16/23 10:55 Influenza Type B Ag negative (Negative) 12/16/23 10:55 SARS-CoV-2 (PCR) Not detected (NOT DETECT) 12/16/23 10:55 All radiology interpretation(s) finalized by discharge Discharge Plan Discharge Patient Disposition: Admitted As Inpatient Clinical Impression: Acute respiratory failure with hypoxia and hypercapnia, Acute exacerbation of chronic obstructive airways disease, Hypertension, Anxiety, COPD (chronic obstructive pulmonary disease) Condition: Stable Prescriptions: No Action (DME) oxygen and concentrator See Rx Instructions .Route .MEDSUPPLY Qty: 1 0RF Rx Instructions: use 2L O2 via NC with exercise pantoprazole 40 mg tablet,delayed release (DR/EC) 40 mg PO DAILY Qty: 30 3RF furosemide 40 mg tablet 40 mg PO DAILY@0800 Qty: 30 3RF (DME) Portable oxygen concentrator See Rx Instructions .Route .MEDSUPPLY Qty: 1 0RF Rx Instructions: As directed (DME) Inspire Portable oxygen concentrator See Rx Instructions .Route .MEDSUPPLY Qty: 1 0RF Rx Instructions: Rate 4L O2 (DME) Portable Oxygen Concentrator 2-4L/NC See Rx Instructions .Route .MEDSUPPLY Qty: 1 0RF Rx Instructions: Continuous oxygen at 2-4L/NC. (DME) Portable Oxygen Concentrator 2-4L/NC 0 .Route .MEDSUPPLY tiotropium bromide [Spiriva with HandiHaler] 18 mcg capsule, w/inhalation device 1 cap inhalation DAILY Qty: 60 0RF Rx Instructions: puncture 1 cap using device; one dose = 2 inhalations ipratropium-albuterol 0.5 mg-3 mg(2.5 mg base)/3 mL solution for nebulization 3 ml inhalation Q8H Qty: 90 0RF formoterol fumarate [Perforomist] 20 mcg/2 mL solution for nebulization 2 ml inhalation BID Qty: 120 0RF bupropion HCl 150 mg tablet extended release 24 hr 150 mg PO QAM Qty: 30 3RF albuterol sulfate [Ventolin HFA] 90 mcg/actuation HFA aerosol inhaler 2 puff inhalation QID PRN (Reason: Shortness Of Breath) Qty: 8.5 1RF polyethylene glycol 3350 17 gram/dose powder 17 g PO BID PRN (Reason: Constipation) sennosides [Senna Lax] 8.6 mg Tablet 8.6 mg PO BID PRN (Reason: Constipation) ferrous gluconate 324 mg (37.5 mg iron) tablet 37.5 mg PO BIDWM albuterol sulfate 2.5 mg /3 mL (0.083 %) solution for nebulization See Rx Instructions .ROUTE .COMPLEX PRN (Reason: sob) Qty: 180 2RF Dose Instruction: INHALE ONE vial via NEBULIZER FOUR TIMES DAILY NEEDED FOR SHORTNESS OF BREATH OR wheezing Rx Instructions: INHALE ONE vial via NEBULIZER FOUR TIMES DAILY NEEDED FOR SHORTNESS OF BREATH OR wheezing prednisone 10 mg tablet 10 mg PO DIRECTED Qty: 53 0RF Rx Instructions: 4 tabs a day for 5 days, 3 tabs for 5 days, 2 tabs for 5 days, 1 tab for 5 days,0.5 tab for 5 days potassium chloride [Klor-Con M20] 20 mEq tablet,ER particles/crystals 20 meq PO DAILY 30 Days Qty: 30 0RF Referrals: Reena López MD [Primary Care Provider] - Coding Level of Care Code ED Lot Worker for Teagang Justino
--- NOTE | 2023-12-16 10:37 | ECG_ITS ---
[facility] Test Date: 2023-12-16 Pat Name: Estelle Pascual Department: Room: Gender: Female Rn Acute Dialysis: : 1970 Requested By: Kentrell Conti Order Number: [id number] [place] MD: Irwin Barahona M.D. Measurements Intervals [place] Rate: 86 P: 79 LA: 136 QRS: 76 QRSD: 85 T: 68 QT: 327 QTc: 392 Interpretive Statements SINUS RHYTHM Compared to ECG 12/03/2023 03:33:32 T-wave abnormality no longer present Possible ischemia no longer present Electronically Signed On 12-17-2023 7:38:45 CDT by Irwin Barahona M.D. [id number]
[2023-12-16] MEDS: ipratropium-albuterol 3 mL Neb INHALATION ×4 (10:46→23:13)
[2023-12-16] MEDS: methylPREDNISolone sod succ 125 mg/2 mL INJ IVP (10:52)
[2023-12-16 11:07] LABS: ABG PH Result 7.28 (7.35-7.45); Alveolar-Arterial Oxygen Gradi 8.2 mmHg (5-10); Arterial Blood Gas Hematocrit 38.2 % (37-47); Base Excess ABG 17.4 mmol/L (-2.0-2.0); Blood Gas Allen Test Pos; Blood Gas Operator Identificat glc; Blood Gas Sample Site Radial, right; Blood Gas Sample Type Arterial; Carboxyhemoglobin 1.4 %THgb (0.4-20.1); HCO3 ABG 48.9 mmol/L (22-26); HGB O2 Sat 93.8 % (95-100); Ionized Calcium Level - ABG 1.3 mmol/L (1.1-1.4); Methemoglobin < 0.0 % (0.4-1.5); Oxygen Device BIPAP; Oxygen Saturation ABG 94.4; PO2 ABG 72.1 mmHg (80.0-100.0); PO2 FiO2 Ratio Arterial Blood 200; Potassium Level - ABG 5.4 mmol/L (3.5-5.0); Total Hemoglobin 12.5 g/dL (12-16)
[2023-12-16 11:21] LABS: Influenza A by IFA negative (Negative); Influenza B by IFA negative (Negative)
--- NOTE | 2023-12-16 11:21 | PC.PHAR ---
PT AND DAUGHTER VERIFIED ALL CURRENT HOME MEDS. PT STATES IS NOT TAKING THE SYMBICORT 160-4.5 2 PUFFS TWICE DAILY WRITTEN 12/09/23 30DS.
[2023-12-16 11:52] LABS: Basophils % 0.2 %; Eosinophils % 0.4 %; Hematocrit 44.5 % (36-47); Lymphocytes % 10.6 %; Mean Corpuscular HGB Conc 28.5 g/dL (30-55); Mean Corpuscular Hemoglobin 30.3 pg (27-33); Mean Corpuscular Volume 106.2 fl (85-98); Mean Platelet Volume 10.5 fL (7.4-10.4); Monocytes # 0.4 10^3/uL (0.2-0.9); Monocytes % 4.6 %; Neutrophils # 7.91 10^3/uL (1.8-7.7); Neutrophils % 83.6 %; Nucleated Red Blood Cells % 0 %; Platelet Count 173 10^3/cmm (157-399); Red Blood Count 4.19 10^6/uL (3.85-5.65); Red Cell Distribution Width 13.6 % (12.1-15.1); White Blood Count 9.47 10^3/uL (3.29-11.43)
[2023-12-16 12:11] LABS: Alanine Aminotransferase 123 U/L (0-33); Albumin Level 4.3 g/dL (3.5-5.2); Alkaline Phosphatase 79 U/L (35-105); Aspartate Amino Transferase 13 U/L (0-32); Blood Urea Nitrogen 17 mg/dL (6-20); Calcium 9.1 mg/dL (8.5-10.5); Chloride 96 mmol/L (98-107); Creatinine Clr Calc Pharmacy 66.4705; Globulin 2.7 g/dL (1.3-4.6); Glomerular Filtration Rate 74.5 mL/min (90-130); Glucose 134 mg/dL (65-115); Osmolality Calculated 306 mOsm/kg (285-295); Sodium 146 mmol/L (136-145); Total Bilirubin 0.3 mg/dL (0.15-1.2)
[2023-12-16 12:12] LABS: Lactic Sepsis W/Reflex 1.5 mmol/L (0.5-2.2)
--- NOTE | 2023-12-16 12:20 | XR_ITS ---
WS: [id number] Examination: XR ankle LT min 3V* [id number] Reason for Exam: pain Date: December 16, 2023 Comparison: None. Findings: The ankle mortise is intact. There is no fracture or dislocation. No dominant soft tissue swelling is appreciated. XR/XR ankle LT min 3V* [id number] Impression: No displaced fracture seen.
[2023-12-16 12:27] LABS: Anion Gap 13.2 (5-19); Potassium 5.2 mmol/L (3.5-5.1)
[2023-12-16 12:28] LABS: Carbon Dioxide 42 mmol/L (22-29)
[2023-12-16 12:57] LABS: Charge for UA Resulting for Rev
[2023-12-16 13:02] LABS: Adenovirus Not Detected (NOT DETECT); Chlamydia Pneumoniae Not Detected (NOT DETECT); Coronavirus 229E,HKU1,NL63,OC4 Not Detected (NOT DETECT); Human Metapneumovirus Not Detected (NOT DETECT); Human Rhinovirus/Enterovirus Not Detected (NOT DETECT); Influenza A Not Detected (NOT DETECT); Influenza A H1 Not Detected (NOT DETECT); Influenza A H1-2009 Not Detected (NOT DETECT); Influenza A H3 Not Detected (NOT DETECT); Influenza B Not Detected (NOT DETECT); Mycoplasma Pneumoniae Not Detected (NOT DETECT); Parainfluenza Virus Type 1 Not Detected (NOT DETECT); Parainfluenza Virus Type 2 Not Detected (NOT DETECT); Parainfluenza Virus Type 3 Not Detected (NOT DETECT); Parainfluenza Virus Type 4 Not Detected (NOT DETECT); Respiratory Syncytial Virus A Not Detected (NOT DETECT); Respiratory Syncytial Virus B Not Detected (NOT DETECT); SARS-COV-2 Not Detected (NOT DETECT)
[2023-12-16 13:03] LABS: Bilirubin Urine Negative (Negative); Blood Urine Negative (Negative); Glucose Urine UA Negative (Normal); Ketones Urine 1+ (Negative); Leukocyte Esterase Urine Negative (Negative); Nitrate Urine Negative (Negative); Protein Urine 1+ (Negative); Specific Gravity, Urine 1.023 (1.005-1.030); Urine Appearance Clear (CLEAR); Urine Color Yellow (Yellow)
[2023-12-16 13:09] LABS: Bacteria Urine None Seen /hpf; Hyaline Casts Urine 2.87 /lpf; RBC Urine 0-2 /hpf (0-2); Squamous Epithelial Cell Urine 0-5 /hpf (0-5); WBC Urine 0-5 /hpf (0-5)
--- NOTE | 2023-12-16 13:43 | P.HP_ITS ---
Providers/Chief Complaint 2 Admitting Physician: Brannon Olmedo MD, hospitalist Primary Care Provider: Reena López MD Chief Complaint: SOB/confusion History of Present Illness Estelle Pascual is a 53 year old female presenting to the emergency department with confusion. She was released from the hospital most recently for hypercarbic respiratory failure on December 05. Family reports she did okay, until about 2 to 3 days ago when she started getting sleepy. She has been on 6 L of oxygen. For the most part she has been compliant wearing her BiPAP at night, but not really during the day. She has not had any fevers or vomiting. She did have a witnessed fall where she twisted her ankle, losing her balance on Saturday, 2 days ago. She did not hit her head or neck. Family is wanting to make sure her left ankle gets x-ray. She continues to smoke. Review of Systems 2 General: Reports: 10 or more systems reviewed and unremarkable except in HPI and below and ROS unobtainable due to mental status Medications/Allergies Home Medications Medication Instructions Recorded Confirmed Last Taken Type oxygen and concentrator #1 ea 03/03/20 12/16/23 Unknown Rx Inspire Portable oxygen #1 ea 10/30/22 12/16/23 Unknown Rx concentrator Portable oxygen concentrator #1 ea 10/30/22 12/16/23 Unknown Rx bupropion HCl 150 mg 24 hr tablet, 150 mg PO QAM #30 tabs 04/16/23 12/16/23 12/16/23 Rx extended release Portable Oxygen Concentrator 06/18/23 12/16/23 Unknown History Portable Oxygen Concentrator #1 ea 06/18/23 12/16/23 Unknown Rx ferrous gluconate 324 mg (37.5 mg 37.5 mg PO BIDWM 07/18/23 12/16/23 12/16/23 History iron) tablet polyethylene glycol 3350 17 17 g PO BID PRN Constipation 07/18/23 12/16/23 07/17/23 History gram/dose oral powder sennosides 8.6 mg tablet (Senna 8.6 mg PO BID PRN Constipation 07/18/23 12/16/23 07/17/23 History Lax) albuterol sulfate 2.5 mg/3 mL See Rx Instructions .Route 03/21/24 08/12/24 03/13/24 Rx (0.083 %) solution for nebulization .COMPLEX PRN sob #180 mL furosemide 40 mg tablet 40 mg PO DAILY@0800 #30 tabs 07/30/23 12/16/23 12/16/23 Rx pantoprazole 40 mg tablet,delayed 40 mg PO DAILY #30 tabs 07/30/23 12/16/23 12/16/23 Rx release albuterol sulfate 90 mcg/actuation 2 puff inhalation QID PRN 10/25/23 12/16/23 Unknown Rx aerosol inhaler (Ventolin HFA) Shortness Of Breath #8.5 grams formoterol fumarate 20 mcg/2 mL 2 ml inhalation BID COPD #120 mL 11/01/23 12/16/23 12/16/23 Rx solution for nebulization (Perforomist) ipratropium 0.5 mg-albuterol 3 mg 3 ml inhalation Q8H shortness of 11/01/23 12/16/23 Unknown Rx (2.5 mg base)/3 mL nebulization breath or wheezing #90 mL soln tiotropium bromide 18 mcg capsule 1 cap inhalation DAILY #60 11/01/23 12/16/23 12/15/23 Rx with inhalation device (Spiriva inhalations with HandiHaler) potassium chloride 20 mEq 20 meq PO DAILY 30 days #30 tabs 12/06/23 12/16/23 12/16/23 Rx tablet,extended release(part/cryst) (Klor-Con M) prednisone 10 mg tablet 10 mg PO DIRECTED #53 tabs 12/06/23 12/16/23 12/16/23 Rx Allergies Allergy/AdvReac Type Severity Reaction Status Date / Time hydrocodone Allergy ADR-Vomitin Verified 12/16/23 10:33 g tramadol Allergy ADR-Itching Verified 12/16/23 10:33 PFSH Acute 2 PFSH: Medical History Chronic hypercapnic respiratory failure Upper GI bleeding TIA (transient ischemic attack) Dependence on supplemental oxygen HTN (hypertension) Acute exacerbation of chronic obstructive airways disease Tenosynovitis of foot Fracture of fifth metatarsal bone of right foot Gastroesophageal reflux disease Hypertension Anxiety COPD (chronic obstructive pulmonary disease) Right ankle pain Right foot pain Surgical History Hx of tubal ligation History of tonsillectomy and adenoidectomy Hx of cholecystectomy Hx of hernia repair Hx of section Hx of colonoscopy (~2012) Family History Father Cancer lung Heart disease Mother Heart disease Social History Smoking and tobacco/nicotine status: current every day tobacco/nicotine user cigarettes Packs smoked per day: 1 Years cigarettes smoked: 45 Second hand smoke exposure: Yes Alcohol intake: former Former alcohol use details: sober x 20 yrs Substance/Drug Use: never Caregiver/support person: Yes Lives independently: Yes Household members: spouse and children Marital status: service: No Current occupational status: unemployed Current gender identity: Female Special lauryn needs: No Agree to transfusion: No Vitals/I&O/Wt Last Vital Signs Pulse 86 12/16/23 13:26 Resp 30 H 12/16/23 10:52 BP 131/113 12/16/23 13:26 Pulse Ox 96 12/16/23 13:26 O2 Del Method BiPAP 12/16/23 13:26 O2 Flow Rate 6 12/16/23 10:23 FiO2 36 12/16/23 10:52 Weight last 48 hrs Weight 60.781 kg Physical Exam 2 Narrative: General exam is a sleepy white female, who comes awake slightly with significant stimuli and can answer a few minor questions. HEENT: Atraumatic normocephalic. BiPAP is on. Neck is supple no lymphadenopathy thyromegaly Cardiovascular regular rate and rhythm, heart sounds distant Lungs diminished breath sounds bilaterally but no obvious wheezing Abdomen is soft nontender with positive bowel sounds exam was deferred Extremities no cyanosis, or edema, cap refill brisk Skin no rash Urinary Catheter Management: Dee: Cath Placed During This Visit: yes Urinary Catheter Date of Insertion: 12/16/23 Urinary Catheter Time of Insertion: 13:28 Data 12/16/23 11:47 12/16/23 11:47 Other Labs: MCV 106 ABG demonstrates pH 7.28, pCO2 of 104, pO2 of 72 LFTs normal with exception of ALT of 123 UA negative Ankle film shows no fracture Chest x-ray which I reviewed no infiltrate, COPD is noted. EKG which I reviewed demonstrates sinus rhythm, normal axis, no acute changes Echo from July of this year demonstrates preserved EF, 55 to 60% A&P Assessment and plan (1) Acute respiratory failure with hypoxia and hypercapnia: Patient presents with acute respiratory failure with hypercarbia, and hypoxia Continue BiPAP May need AVAPS settings Repeat ABG Etiology is significant advanced COPD Avoid any medications that could cause somnolence. Suspected trilogy will be needed secondary to failing BiPAP at home (2) COPD (chronic obstructive pulmonary disease): Patient with evidence of advanced COPD with acute COPD exacerbation She received IV steroids in the emergency department Budesonide twice daily DuoNeb every 4 hours Solu-Medrol 60 mg IV every 24 hours No evidence of infection, no antibiotics needed Qualifiers: COPD type: COPD with acute exacerbation Qualified Code(s): J44.1 - Chronic obstructive pulmonary disease with (acute) exacerbation (3) Macrocytosis: Check B12 and folate TSH was recently checked and normal. (4) Hyperkalemia: Hold oral potassium Recheck tomorrow Plan Multiple other medical problems as outlined in past medical history Full code Lovenox for DVT prophylaxis Attestations 2 Medical Necessity Statement*: Will require greater than 2 midnight stay for evaluation and treatment of acute COPD exacerbation with hypercarbic respiratory failure requiring BiPAP with likely transition to AVAPS Diagnoses Acute respiratory failure with hypoxia and hypercapnia J96.01; J96.02 Chronic obstructive pulmonary disease with acute exacerbation J44.1 COPD type: COPD with acute exacerbation Macrocytosis D75.89 Hyperkalemia E87.5
[2023-12-16] MEDS: sodium chloride 0.9% 1,000 ML 999 ML IV (13:48)
[2023-12-16 14:37] LABS: Folate Level 9.1 ng/mL (4.8-37.3); Vitamin B12 482 pg/mL (232-1245)
[2023-12-16] MEDS: sodium chloride 0.9% 1,000 ML 75 ML IV (14:43)
[2023-12-16] MEDS: enoxaparin 40 mg/0.4 mL Syringe SUBCUT (14:43)
[2023-12-16 17:16] LABS: ABG PCO2 59.8 mmHg (35-45); ABG PH Result 7.46 (7.35-7.45); Alveolar-Arterial Oxygen Gradi 13.5 mmHg (5-10); Base Excess ABG 15.7 mmol/L (-2.0-2.0); Blood Gas Allen Test Pos; Blood Gas Operator Identificat MONRO; Blood Gas Sample Site Radial, left; Blood Gas Sample Type Arterial; Blood Gas Tidal Volume 0.44; Carboxyhemoglobin 1.3 %THgb (0.4-20.1); HCO3 ABG 42.4 mmol/L (22-26); HGB O2 Sat 95.2 % (95-100); Ionized Calcium Level - ABG 1.2 mmol/L (1.1-1.4); Methemoglobin 0.4 % (0.4-1.5); Oxygen Device BIPAP; Oxygen Saturation ABG 96.8; PO2 ABG 66.6 mmHg (80.0-100.0); PO2 FiO2 Ratio Arterial Blood 195; Potassium Level - ABG 5.1 mmol/L (3.5-5.0); Total Hemoglobin 12.7 g/dL (12-16)
[2023-12-16] MEDS: budesonide 0.5 mg/2 mL Neb INHALATION (19:52)
--- NOTE | 2023-12-16 20:28 | PC.NURSE ---
[employer] Boards Router: extremely weak but equal bilaterally.
[2023-12-17] VITALS (31 sets, daily range): BP systolic 99–165; BP diastolic 66–108; PULSE 76–106; RESP 18–28; TEMP 36.7–37.2; O2SAT 89–98; BMI 23.9
[2023-12-17] MEDS: ipratropium-albuterol 3 mL Neb INHALATION ×6 (03:31→23:54)
[2023-12-17] MEDS: sodium chloride 0.9% 1,000 ML 75 ML IV (04:32)
[2023-12-17 04:45] LABS: Basophils % 0.1 %; Hematocrit 38.4 % (36-47); Lymphocytes # 1.4 10^3/uL (0.8-4.8); Lymphocytes % 12.8 %; Mean Corpuscular HGB Conc 30.2 g/dL (30-55); Mean Corpuscular Hemoglobin 30.5 pg (27-33); Mean Corpuscular Volume 101.1 fl (85-98); Mean Platelet Volume 10.9 fL (7.4-10.4); Monocytes # 0.6 10^3/uL (0.2-0.9); Neutrophils # 8.94 10^3/uL (1.8-7.7); Neutrophils % 81.7 %; Nucleated Red Blood Cells % 0 %; Platelet Count 162 10^3/cmm (157-399); Red Cell Distribution Width 14.3 % (12.1-15.1); White Blood Count 10.94 10^3/uL (3.29-11.43)
[2023-12-17 05:02] LABS: Alanine Aminotransferase 79 U/L (0-33); Albumin Level 3.8 g/dL (3.5-5.2); Alkaline Phosphatase 64 U/L (35-105); Anion Gap 15.9 (5-19); Aspartate Amino Transferase 14 U/L (0-32); Blood Urea Nitrogen 22 mg/dL (6-20); Calcium 9.3 mg/dL (8.5-10.5); Carbon Dioxide 33 mmol/L (22-29); Chloride 97 mmol/L (98-107); Globulin 2.3 g/dL (1.3-4.6); Glomerular Filtration Rate 57.6 mL/min (90-130); Glucose 121 mg/dL (65-115); Osmolality Calculated 297 mOsm/kg (285-295); Potassium 4.9 mmol/L (3.5-5.1); Sodium 141 mmol/L (136-145); Total Bilirubin 0.3 mg/dL (0.15-1.2); Total Protein 6.1 g/dL (6.6-8.7)
[2023-12-17] MEDS: buPROPion XL (24 HR) 150 mg Tablet PO (05:58)
[2023-12-17] MEDS: methylPREDNISolone sod succ 125 mg/2 mL INJ 60 MG IVP (06:02)
[2023-12-17] MEDS: budesonide 0.5 mg/2 mL Neb INHALATION ×2 (07:43→20:44)
[2023-12-17] MEDS: pantoprazole DR 40 mg Tablet PO (08:56)
--- NOTE | 2023-12-17 09:25 | P.PN_ITS ---
Subjective 2 Subjective: Awake on BiPAP. No issues overnight. Medications: Reviewed: Yes Vitals/I&O/Wt Last Vital Signs Temp 98.8 F 12/17/23 06:00 Pulse 83 12/17/23 07:45 Resp 20 H 12/17/23 07:43 BP 128/78 12/17/23 04:00 Pulse Ox 98 12/17/23 07:45 O2 Del Method BiPAP 12/17/23 07:43 O2 Flow Rate 6 12/16/23 10:23 FiO2 34 12/17/23 07:45 12/16/23 12/17/23 12/17/23 22:59 06:59 14:59 Intake Total 1466.25 / 1466.25 621.25 / 2087.50 Output Total 425 / 425 Balance 1466.25 / 1466.25 196.25 / 1662.50 Weight last 48 hrs Weight 57.47 kg Weight 57.47 kg Weight 60.237 kg Weight 60.781 kg Physical Exam 2 Narrative: General exam no distress Neck is supple no lymphadenopathy thyromegaly Cardiovascular regular rate and rhythm, heart sounds distant Lungs diminished breath sounds bilaterally but no obvious wheezing Abdomen is soft nontender with positive bowel sounds Dee noted Extremities no cyanosis, or edema, cap refill brisk Urinary Catheter Management: Dee: Cath Placed During This Visit: yes Reason for Continuing Indwelling Catheter: Accurate Measurement of Urinary Output in Critically Ill Patients Urinary Catheter Date of Insertion: 12/16/23 Urinary Catheter Time of Insertion: 13:28 Data 12/17/23 04:38 12/17/23 04:38 A&P Assessment and plan (1) Acute respiratory failure with hypoxia and hypercapnia: Patient presents with acute respiratory failure with hypercarbia, and hypoxia BiPAP while sleeping. May need AVAPS settings. Consider home trilogy Etiology is significant advanced COPD Avoid any medications that could cause somnolence. Suspected trilogy will be needed secondary to failing BiPAP at home (2) COPD (chronic obstructive pulmonary disease): Patient with evidence of advanced COPD with acute COPD exacerbation She received IV steroids in the emergency department Budesonide twice daily DuoNeb every 4 hours Solu-Medrol 60 mg IV every 24 hours No evidence of infection, no antibiotics needed Qualifiers: COPD type: COPD with acute exacerbation Qualified Code(s): J44.1 - Chronic obstructive pulmonary disease with (acute) exacerbation (3) Macrocytosis: B12 and folate are normal TSH was recently checked and normal. (4) Hyperkalemia: Hold oral potassium Improved Recheck tomorrow Discontinue IV fluids Plan Multiple other medical problems as outlined in past medical history Full code Lovenox for DVT prophylaxis May transfer out of ICU today Consider discontinuation of Dee today Attestations 2 Medical Necessity Statement*: Needs continued hospitalization for pulmonary toilet, IV steroids secondary COPD exacerbation. Consideration for noninvasive ventilator. Diagnoses Acute respiratory failure with hypoxia and hypercapnia J96.01; J96.02 Chronic obstructive pulmonary disease with acute exacerbation J44.1 COPD type: COPD with acute exacerbation Macrocytosis D75.89 Hyperkalemia E87.5 Time Spent (min) 25
--- NOTE | 2023-12-17 11:49 | PC.NURSE ---
attempted to get patient up to chair, not tolerated well O2 increased to 7L NC briefly. Dr. Krishna at bedside okay with O2 sat of 88 to 92. patient transferred to [facility] at this time
[2023-12-17] MEDS: enoxaparin 40 mg/0.4 mL Syringe SUBCUT (15:04)
[2023-12-18] VITALS (7 sets, daily range): BP systolic 95–118; BP diastolic 62–75; PULSE 76–100; RESP 17–25; TEMP 36.8–37.5; O2SAT 95–98
[2023-12-18] MEDS: ipratropium-albuterol 3 mL Neb INHALATION ×2 (04:01→08:05)
[2023-12-18 05:24] LABS: Anion Gap 13.9 (5-19); Blood Urea Nitrogen 23 mg/dL (6-20); Calcium 8.8 mg/dL (8.5-10.5); Carbon Dioxide 27 mmol/L (22-29); Chloride 104 mmol/L (98-107); Creatinine Clr Calc Pharmacy 54.6443; Glomerular Filtration Rate 57.6 mL/min (90-130); Glucose 106 mg/dL (65-115); Osmolality Calculated 296 mOsm/kg (285-295); Potassium 3.9 mmol/L (3.5-5.1); Sodium 141 mmol/L (136-145)
[2023-12-18] MEDS: buPROPion XL (24 HR) 150 mg Tablet PO (05:36)
[2023-12-18] MEDS: methylPREDNISolone sod succ 125 mg/2 mL INJ 60 MG IVP (05:36)
[2023-12-18] MEDS: pantoprazole DR 40 mg Tablet PO (07:43)
[2023-12-18] MEDS: acetaminophen 325 mg Tablet 650 MG PO (07:43)
[2023-12-18] MEDS: budesonide 0.5 mg/2 mL Neb INHALATION (08:05)
--- NOTE | 2023-12-18 09:13 | PM.DCS ---
Discharge Providers Date of Admission: 12/16/23 14:12 Date of Discharge: December 18, 2023 Attending Provider at Admission: Kirk Pandya MD Attending Provider at Discharge: Brannon Olmedo MD Primary Care Provider: Reena López MD Diagnoses at Discharge Discharge Diagnosis (1) Acute respiratory failure with hypoxia and hypercapnia: Status: Acute (2) COPD (chronic obstructive pulmonary disease): Status: Acute Qualifiers: COPD type: COPD with acute exacerbation Qualified Code(s): J44.1 - Chronic obstructive pulmonary disease with (acute) exacerbation (3) Macrocytosis: Status: Acute (4) Hyperkalemia: Status: Acute Reason for Visit Reason for Visit: SOB/confusion Hospital Course Hospital Course Estelle is a 53-year-old female with advanced COPD with chronic active smoking who presented to the hospital on December 15 with acute encephalopathy from hypercarbic respiratory failure acute on chronic. No pneumonia was present. She required BiPAP and AVAPS settings. With this her significant hypercarbia with pCO2 over 100 resolved. She already had BiPAP at home, and from what I understand was compliant with it. She was given IV steroids, frequent nebs. She showed significant improvement over the next several days and was stable for discharge on December 17. Although she qualifies for 6 L of oxygen with exertion I recommended that she keep her saturation around 90% when resting. She has pulse oximetry at home and at the hospital she needs approximately 4 to 5 L to accomplish this. When exerting she should increase the oxygen up to 6 L, but turned it down when resting. Hopefully this will reduce her CO2 retention while she is awake. She was instructed while sleeping, whether napping during the day or at night she should always wear noninvasive ventilator. We have gotten this approved through [employer], and she will be getting it further there. The reason for this is to reduce readmissions, worsening hypercarbia, as her home BiPAP was not effective. She will be discharged today, in stable condition home. She was instructed not to smoke. She will of a prednisone taper. She should follow-up with pulmonary with her regular appointment, her primary care provider 3 to 5 days. She was given opportunity to ask questions and agreed with the plan. Physical Exam Narrative: General exam no distress, alert and oriented Neck is supple Cardiovascular regular rate and rhythm Lungs diminished breath sounds bilaterally but clear Abdomen is soft Extremities no cyanosis clubbing edema Urinary Catheter Management: Dee: Cath Placed During This Visit: yes Reason for Continuing Indwelling Catheter: Accurate Measurement of Urinary Output in Critically Ill Patients Urinary Catheter Date of Insertion: 12/16/23 Urinary Catheter Time of Insertion: 13:28 Discharge Data Studies Completed and Pending Completed Studies During Hospitalization Category Date Time Status XR ankle LT min 3V* [id number] Stat Exams 12/16/23 12:20 Completed XR chest 1V portable [id number] Stat Exams 12/16/23 10:31 Completed Radiology Impressions Chest X-Ray 12/16/23 10:31 IMPRESSION: The lungs appear hyperinflated without focal infiltrate or failure. Ankle X-Ray 12/16/23 12:20 Impression: No displaced fracture seen. Laboratory Results WBC 10.94 10^3/uL (3.29-11.43) 12/17/23 04:38 RBC 3.80 10^6/uL (3.85-5.65) L 12/17/23 04:38 Hgb 11.60 g/dL (11.27-16.99) 12/17/23 04:38 Hct 38.4 % (36-47) 12/17/23 04:38 MCV 101.1 fl (85-98) H 12/17/23 04:38 MCH 30.5 pg (27-33) 12/17/23 04:38 MCHC 30.2 g/dL (30-55) D 12/17/23 04:38 RDW 14.3 % (12.1-15.1) 12/17/23 04:38 Plt Count 162 10^3/cmm (157-399) 12/17/23 04:38 MPV 10.9 fL (7.4-10.4) H 12/17/23 04:38 Neut % (Auto) 81.7 % 12/17/23 04:38 Lymph % (Auto) 12.8 % 12/17/23 04:38 [place] % (Auto) 5.0 % 12/17/23 04:38 Eos % (Auto) 0.0 % 12/17/23 04:38 Baso % (Auto) 0.1 % 12/17/23 04:38 Neut # (Auto) 8.94 10^3/uL (1.8-7.7) H 12/17/23 04:38 Lymph # (Auto) 1.4 10^3/uL (0.8-4.8) 12/17/23 04:38 [place] # (Auto) 0.6 10^3/uL (0.2-0.9) 12/17/23 04:38 Eos # (Auto) 0.0 10^3/uL (0.0-0.8) 12/17/23 04:38 Baso # (Auto) 0.0 10^3/uL (0.0-0.1) 12/17/23 04:38 Nucleated RBC % (auto) 0 % 12/17/23 04:38 Nucleated RBCs # 0.0 /100WBC 12/17/23 04:38 Specimen Type Arterial 12/16/23 17:02 Sample Site Radial, left 12/16/23 17:02 ABG pH 7.46 (7.35-7.45) H 12/16/23 17:02 ABG pCO2 59.8 mmHg (35-45) H 12/16/23 17:02 ABG pO2 66.6 mmHg (80.0-100.0) L 12/16/23 17:02 ABG PO2/FiO2 Ratio 195 12/16/23 17:02 ABG HCO3 42.4 mmol/L (22-26) H 12/16/23 17:02 ABG O2 Saturation 96.8 12/16/23 17:02 ABG Base Excess 15.7 mmol/L (-2.0-2.0) H 12/16/23 17:02 Braxton Test Pos 12/16/23 17:02 A-a O2 Gradient 13.5 mmHg (5-10) H 12/16/23 17:02 Hematocrit 39.0 % (37-47) 12/16/23 17:02 Hgb O2 Saturation 95.2 % (95-100) 12/16/23 17:02 Carboxyhemoglobin 1.3 %THgb (0.4-20.1) 12/16/23 17:02 Methemoglobin 0.4 % (0.4-1.5) 12/16/23 17:02 Total Hemoglobin 12.7 g/dL (12-16) 12/16/23 17:02 Sodium 146.0 mmol/L (131-143) H 12/16/23 17:02 Potassium 5.1 mmol/L (3.5-5.0) H 12/16/23 17:02 Glucose 111.0 mg/dL (70-115) 12/16/23 17:02 Ionized Calcium 1.2 mmol/L (1.1-1.4) 12/16/23 17:02 O2 Delivery Device Bipap 12/16/23 17:02 FiO2 34.0 % 12/16/23 17:02 Tidal Volume 0.44 12/16/23 17:02 PEEP 8.0 cmH20 12/16/23 17:02 Recreational Aide ID Monro 12/16/23 17:02 Sodium 141 mmol/L (136-145) 12/18/23 04:37 Potassium 3.9 mmol/L (3.5-5.1) 12/18/23 04:37 Chloride 104 mmol/L (98-107) 12/18/23 04:37 Carbon Dioxide 27 mmol/L (22-29) 12/18/23 04:37 Anion Gap 13.9 (5-19) 12/18/23 04:37 BUN 23 mg/dL (6-20) H 12/18/23 04:37 Creatinine 1.0 mg/dL (0.5-0.9) H 12/18/23 04:37 GFR Calculation 57.6 mL/min (90-130) L 12/18/23 04:37 Glucose 106 mg/dL (65-115) 12/18/23 04:37 Calculated Osmolality 296 mOsm/kg (285-295) H 12/18/23 04:37 Lactic Acid 1.5 mmol/L (0.5-2.2) 12/16/23 11:47 Calcium 8.8 mg/dL (8.5-10.5) 12/18/23 04:37 Total Bilirubin 0.3 mg/dL (0.15-1.2) 12/17/23 04:38 AST 14 U/L (0-32) 12/17/23 04:38 ALT 79 U/L (0-33) H 12/17/23 04:38 Alkaline Phosphatase 64 U/L (35-105) 12/17/23 04:38 Total Protein 6.1 g/dL (6.6-8.7) L 12/17/23 04:38 Albumin 3.8 g/dL (3.5-5.2) 12/17/23 04:38 Globulin 2.3 g/dL (1.3-4.6) 12/17/23 04:38 Vitamin B12 482 pg/mL (232-1245) 12/16/23 11:47 Folate 9.1 ng/mL (4.8-37.3) 12/16/23 11:47 Urine Color Yellow (Yellow) 12/16/23 12:48 Urine Appearance Clear (CLEAR) 12/16/23 12:48 Urine pH 7.0 (5-7) 12/16/23 12:48 Ur Specific [place] 1.023 (1.005-1.030) 12/16/23 12:48 Urine Protein 1+ (Negative) A 12/16/23 12:48 Urine Glucose (UA) Negative (Normal) 12/16/23 12:48 Urine Ketones 1+ (Negative) H 12/16/23 12:48 Urine Blood Negative (Negative) 12/16/23 12:48 Urine Nitrate Negative (Negative) 12/16/23 12:48 Urine Bilirubin Negative (Negative) 12/16/23 12:48 Urine Urobilinogen 1.0 mg/dL (Negative) 12/16/23 12:48 Ur Leukocyte Esterase Negative (Negative) 12/16/23 12:48 Urine RBC 0-2 /hpf (0-2) 12/16/23 12:48 Urine WBC 0-5 /hpf (0-5) 12/16/23 12:48 Ur Squamous Epith Cells 0-5 /hpf (0-5) 12/16/23 12:48 Amorphous Sediment Not Reportable 12/16/23 12:48 Urine Bacteria None seen /hpf (NONE) 12/16/23 12:48 Hyaline Casts 2.87 /lpf 12/16/23 12:48 Coronavirus 229E (PCR) Not detected (NOT DETECT) 12/16/23 10:55 Influenza Type A Ag negative (Negative) 12/16/23 10:55 Influenza Type B Ag negative (Negative) 12/16/23 10:55 SARS-CoV-2 (PCR) Not detected (NOT DETECT) 12/16/23 10:55 Vitals Last Vital Signs Temp 98.2 F 12/18/23 07:32 Pulse 100 12/18/23 08:00 Resp 18 12/18/23 08:00 BP 95/62 12/18/23 07:32 Pulse Ox 98 12/18/23 08:00 O2 Del Method Nasal Cannula 12/18/23 08:00 O2 Flow Rate 5 12/18/23 08:00 FiO2 34 12/18/23 04:02 Discharge Plan Discharge Patient Disposition: Home Condition: Stable Prescriptions: New prednisone 10 mg tablet 10 mg PO DIRECTED Qty: 30 0RF Rx Instructions: see taper instructions Continued ([facility] and concentrator See Rx Instructions .Route .MEDSUPPLY Qty: 1 0RF Rx Instructions: use 2L O2 via NC with exercise pantoprazole 40 mg tablet,delayed release (DR/EC) 40 mg PO DAILY Qty: 30 3RF furosemide 40 mg tablet 40 mg PO DAILY@0800 Qty: 30 3RF (DME) Portable oxygen concentrator See Rx Instructions .Route .MEDSUPPLY Qty: 1 0RF Rx Instructions: As directed ([facility]) Inspire Portable oxygen concentrator See Rx Instructions .Route .MEDSUPPLY Qty: 1 0RF Rx Instructions: Rate 4L O2 ([facility]) Portable Oxygen Concentrator 2-4L/NC See Rx Instructions .Route .MEDSUPPLY Qty: 1 0RF Rx Instructions: Continuous oxygen at 2-4L/NC. (DME) Portable Oxygen Concentrator 2-4L/NC 0 .Route .MEDSUPPLY tiotropium bromide [Spiriva with HandiHaler] 18 mcg capsule, w/inhalation device 1 cap inhalation DAILY Qty: 60 0RF Rx Instructions: puncture 1 cap using device; one dose = 2 inhalations ipratropium-albuterol 0.5 mg-3 mg(2.5 mg base)/3 mL solution for nebulization 3 ml inhalation Q8H Qty: 90 0RF formoterol fumarate [Perforomist] 20 mcg/2 mL solution for nebulization 2 ml inhalation BID Qty: 120 0RF bupropion HCl 150 mg tablet extended release 24 hr 150 mg PO QAM Qty: 30 3RF albuterol sulfate [Ventolin HFA] 90 mcg/actuation HFA aerosol inhaler 2 puff inhalation QID PRN (Reason: Shortness Of Breath) Qty: 8.5 1RF polyethylene glycol 3350 17 gram/dose powder 17 g PO BID PRN (Reason: Constipation) sennosides [Senna Lax] 8.6 mg Tablet 8.6 mg PO BID PRN (Reason: Constipation) ferrous gluconate 324 mg (37.5 mg iron) tablet 37.5 mg PO BIDWM albuterol sulfate 2.5 mg /3 mL (0.083 %) solution for nebulization See Rx Instructions .ROUTE .COMPLEX PRN (Reason: sob) Qty: 180 2RF Dose Instruction: INHALE ONE vial via NEBULIZER FOUR TIMES DAILY NEEDED FOR SHORTNESS OF BREATH OR wheezing Rx Instructions: INHALE ONE vial via NEBULIZER FOUR TIMES DAILY NEEDED FOR SHORTNESS OF BREATH OR wheezing potassium chloride [Klor-Con M20] 20 mEq tablet,ER particles/crystals 20 meq PO DAILY 30 Days Qty: 30 0RF Discontinued prednisone 10 mg tablet 10 mg PO DIRECTED Qty: 53 0RF Rx Instructions: 4 tabs a day for 5 days, 3 tabs for 5 days, 2 tabs for 5 days, 1 tab for 5 days,0.5 tab for 5 days Discharge Orders: Discharge Order (Routine); Ordered 12/18/23 Ordered By: Brannon Olmedo Referrals: [employer] [Outside] (This is the company providing your [employer] You are using the [employer] office @ [phone]. They say that it usually takes approx 2 weeks for insurance to approve. You can call [phone] to f/up. ) Reena López MD [Primary Care Provider] - 4-7 days Discharge Diet: Cardiac Discharge Activity: Increase activity as tolerated Patient Instructions: Opioid Safety Activity Restrictions/Additional Instructions: Resume your home oxygen. With exertion the should be at 6 L. At rest she may turn this down to keep saturation 90%. You have needed approximately 4 to 5 L in the hospital to accomplish this. Wear BiPAP, and when you get a trilogy all the time when sleeping, which includes at night and naps during the day. Finish prednisone taper as instructed, 4-day for 3 days, 3-day for 3 days, 2 a day for 3 days, 1 a day for 3 days. Pills are 10 mg pills. Return for any concerns Follow-up with your primary care provider 3 to 5 days Keep your pulmonary follow-up. Nursing to check when this will be. She indicates she has pulmonary follow-up here with the [facility]'s enterprise resource planner in the near future but cannot remember the date. Discharge planning to see prior to discharge, with review of need for noninvasive ventilator. Discharge Attestations Time Spent in Discharge Care*: greater than 30 min Status at Discharge: Cognitive status at discharge: cognitively intact, Behavioral status at discharge: cooperative, Quality Metrics Clinical Quality Measures [ No reported AMI, CVA or VTE this stay] Coding Level of Care Code 50927 Total time (in minutes) for Discharge: 39 Diagnoses Acute respiratory failure with hypoxia and hypercapnia J96.01; J96.02 Chronic obstructive pulmonary disease with acute exacerbation J44.1 COPD type: COPD with acute exacerbation Macrocytosis D75.89 Hyperkalemia E87.5
--- NOTE | 2023-12-18 12:18 | PC.NURSE ---
Discussed discharge follow up appointments, new medications, tapered medications and discontinued medication. Instructions on bipap to wear when sleeping including naps. Patient verbalized understanding.
== END 2023-12-18 11:55 | disposition home or self-care (01) | DRG 189 ==
LOC: ER 13:54 → ICU 14:13 → MEDSURG 12-17 11:55
PROVIDERS: Admitting Provider Family Medicine; Emergency Provider Family Medicine; PCP Family Medicine; Visit Provider Internal Medicine
DX: J96.22 Acute and chronic respiratory failure with hypercapnia (principal); J44.1 Chronic obstructive pulmonary disease with (acute) exacerbation; G93.40 Encephalopathy, unspecified; F17.210 Nicotine dependence, cigarettes, uncomplicated; J96.01 Acute respiratory failure with hypoxia; D75.89 Other specified diseases of blood and blood-forming organs; E87.5 Hyperkalemia; K21.9 Gastro-esophageal reflux disease without esophagitis; F41.9 Anxiety disorder, unspecified; Z86.73 Personal history of transient ischemic attack (TIA), and cerebral infarction without residual deficits; Z99.89 Dependence on other enabling machines and devices; Z99.81 Dependence on supplemental oxygen
CPT/HCPCS: 36415; 36600; 51702; 71045; 73610; 80048; 80051; 80053; 81003; 81015; 82330; 82607; 82746; 82805; 83605; 85025; 87635; 87804; 93005; 94640; 94660; 96372; 96374; 99291; J1650; J2919; J7030; J7626

== ENCOUNTER → 2023-12-30 16:05 | Outpatient (BNVA) | payer MEDICAID, SELFPAY | PROVIDERS: PCP Family Medicine; Visit Provider Family Medicine | DX: E87.6 Hypokalemia (principal); J44.1 Chronic obstructive pulmonary disease with (acute) exacerbation | CPT/HCPCS: 80048 ==

== ENCOUNTER → 2024-01-15 16:57 | Outpatient (BNVA) | payer MEDICAID, SELFPAY | PROVIDERS: PCP Family Medicine; Visit Provider Family Medicine | DX: E87.6 Hypokalemia (principal) | CPT/HCPCS: 80048 ==

== ENCOUNTER 2024-03-07 16:15 | Inpatient (IN) | payer MEDICAID, SELFPAY ==
[2024-03-07] VITALS (23 sets, daily range): BP systolic 92–123; BP diastolic 64–92; PULSE 88–104; RESP 13–24; TEMP 36.7; O2SAT 84–98; BMI 25.7
--- NOTE | 2024-03-07 16:30 | XRR_ITS ---
PROCEDURE INFORMATION: Exam: XR Chest Exam date and time: 03/07/2024 4:54 PM Age: 53 years old Clinical indication: Cough and dyspnea; Patient HX: Dyspnea; Cough; SOB; Hypoxia TECHNIQUE: Imaging protocol: Radiologic exam of the chest. Views: 1 view. COMPARISON: CR XR chest 1V portable [id number] 12/16/2023 10:42 AM FINDINGS: Lungs: Prominent interstitial markings. No consolidation. Pleural spaces: Unremarkable. No pleural effusion. No pneumothorax. Heart/Mediastinum: Unremarkable. No cardiomegaly. Bones/joints: Unremarkable. XR/XR chest 1V portable [id number] IMPRESSION: There are prominent interstitial markings. This can be seen with COPD. Please correlate clinically.
--- NOTE | 2024-03-07 16:34 | ED_ITS ---
HPI - SOB/Dyspnea 2 General: Chief Complaint: Shortness of Breath/Dyspnea Stated Complaint: O2 is high Time Seen by Provider: 03/07/24 16:30 History of Present Illness: HPI Narrative: 53-year-old female presents to the [facility] room complaining of shortness of breath and wheezing. Has been shortness of breath last several days she has a history of COPD states her baseline oxygen level is 4 but she had pushed up to 6 and even 8 at times. At times she has been hallucinating. When she arrived in the triage area today which she was on 2 L did seem more short of breath the nurse increase that to 4 and brought her back to room she has had a increased productive cough but denies fever no hemoptysis no chest pain. Patient last nebulizer was about 4 to 5 hours ago. Associated symptoms: Deny abdominal pain, chest pain or fever(s) Related Data Home Medications Medication Instructions Recorded Confirmed Portable Oxygen Concentrator 06/18/23 01/15/24 ferrous gluconate 324 mg (37.5 mg 37.5 mg PO BIDWM 07/18/23 01/15/24 iron) tablet polyethylene glycol 3350 17 17 g PO BID PRN Constipation 07/18/23 01/15/24 gram/dose oral powder sennosides 8.6 mg tablet (Senna 8.6 mg PO BID PRN Constipation 07/18/23 01/15/24 Lax) Previous Rx's Medication Instructions Recorded oxygen and concentrator #1 ea 03/03/20 Inspire Portable oxygen #1 ea 10/30/22 concentrator Portable oxygen concentrator #1 ea 10/30/22 Portable Oxygen Concentrator #1 ea 06/18/23 albuterol sulfate 2.5 mg/3 mL See Rx Instructions .Route 07/25/23 (0.083 %) solution for nebulization .COMPLEX PRN sob #180 mL formoterol fumarate 20 mcg/2 mL 2 ml inhalation BID COPD #120 mL 11/01/23 solution for nebulization (Perforomist) ipratropium 0.5 mg-albuterol 3 mg 3 ml inhalation Q8H shortness of 11/01/23 (2.5 mg base)/3 mL nebulization breath or wheezing #90 mL soln albuterol sulfate 90 mcg/actuation 2 puff inhalation QID PRN 12/27/23 aerosol inhaler (Ventolin HFA) Shortness Of Breath #8.5 grams bupropion HCl 150 mg 24 hr tablet, 150 mg PO QAM #30 tabs 01/01/24 extended release furosemide 40 mg tablet 40 mg PO DAILY@0800 #30 tabs 01/01/24 pantoprazole 40 mg tablet,delayed 40 mg PO DAILY #30 tabs 01/01/24 release tiotropium bromide 18 mcg capsule 1 cap inhalation DAILY #60 01/23/24 with inhalation device (Spiriva inhalations with HandiHaler) Allergies Allergy/AdvReac Type Severity Reaction Status Date / Time hydrocodone Allergy ADR-Vomitin Verified 01/15/24 15:49 g tramadol Allergy ADR-Itching Verified 01/15/24 15:49 Review of Systems 2 Const: Denies: fever(s) or chills Card: Denies: chest pain Resp: Denies: dyspnea GI: Denies: abdominal pain : Denies: dysuria, urinary frequency or urinary urgency Musc: Denies: neck pain or back pain Skin/Breast: Denies: rash PFSH ED 2 PFSH: Medical History Chronic hypercapnic respiratory failure Upper GI bleeding TIA (transient ischemic attack) Dependence on supplemental oxygen HTN (hypertension) Acute exacerbation of chronic obstructive airways disease Tenosynovitis of foot Fracture of fifth metatarsal bone of right foot Gastroesophageal reflux disease Hypertension Anxiety COPD (chronic obstructive pulmonary disease) Right ankle pain Right foot pain Surgical History Hx of tubal ligation History of tonsillectomy and adenoidectomy Hx of cholecystectomy Hx of hernia repair Hx of section Hx of colonoscopy (~2012) Family History Father Cancer lung Heart disease Mother Heart disease Social History Smoking and tobacco/nicotine status: current every day tobacco/nicotine user cigarettes Packs smoked per day: 1 Years cigarettes smoked: 45 Second hand smoke exposure: Yes Alcohol intake: former Former alcohol use details: sober x 20 yrs Substance/Drug Use: never Caregiver/support person: Yes Lives independently: Yes Household members: spouse and children Marital status: service: No Current occupational status: unemployed Current gender identity: Female Special lauryn needs: No Agree to transfusion: No Physical Exam 2 Const: GENERAL APPEARANCE: cooperative ORIENTATION/CONSCIOUSNESS: Yes awake, Yes oriented to person, Yes oriented to place and Yes oriented to time HENMT: COMMON NORMALS: normocephalic, atraumatic and hearing grossly normal bilaterally HEAD & SCALP: normocephalic and atraumatic Resp: COMMON NORMALS: normal respiratory effort, No retractions, No use of accessory muscles and clear to auscultation bilaterally AUSCULTATION: clear to auscultation bilaterally Cardio: COMMON NORMALS: regular rate, regular rhythm and No murmurs present (Cardio) RATE: regular rate RHYTHM: regular rhythm GI: COMMON NORMALS: Soft to palpation and No hepatosplenomegaly present A USCULTATION: Yes normoactive bowel sounds PALPATION: Yes Soft to palpation, No Tenderness to palpation present (GI), No Guarding due to palpation present (GI) and Yes No hepatosplenomegaly present Extremity: COMMON NORMALS: normal to inspection, capillary refill normal, no clubbing, cyanosis or edema, no calf tenderness and no pedal edema Neuro: SENSORIUM/ORIENTATION: Yes oriented to person, Yes oriented to place and Yes oriented to time Skin: COMMON NORMALS: no rashes or lesions noted GENERAL SKIN EXAM: no rashes or lesions noted Course 2 Vital Signs: Vital signs: Vital Signs Temperature 98.1 F 03/07/24 16:21 Pulse Rate 94 03/07/24 16:21 Respiratory Rate 17 03/07/24 16:21 Blood Pressure 98/65 03/07/24 16:21 Pulse Oximetry 91 03/07/24 17:40 Oxygen Delivery Me thod Nasal Cannula 03/07/24 16:21 Oxygen Flow Rate 2 03/07/24 16:21 Fraction of Inspir ed Oxygen 30 03/07/24 17:40 MDM - SOB/Dyspnea Medical Decision Making Acute hypercapnic respiratory failure pCO2 is 102 which is nearly the highest she has ever had. Interesting her pH is normal. No signs of infection. She does some improvement with nebulizer and steroids. Discussed with hospitalist will admit to ICU on BiPAP Medical Records I reviewed the patient's medical records. Lab Data I reviewed the patient's lab results. 03/07/24 16:53 03/07/24 16:53 Labs/Radiology: Radiology Impressions Chest X-Ray 03/07/24 16:30 IMPRESSION: There are prominent interstitial markings. This can be seen with COPD. Please correlate clinically. Laboratory Results WBC 8.88 10^3/uL (3.29-11.43) 03/07/24 16:53 RBC 4.20 10^6/uL (3.85-5.65) 03/07/24 16:53 Hgb 12.50 g/dL (11.27-16.99) 03/07/24 16:53 Hct 41.7 % (36-47) 03/07/24 16:53 MCV 99.3 fl (85-98) H 03/07/24 16:53 MCH 29.8 pg (27-33) 03/07/24 16:53 MCHC 30.0 g/dL (30-55) 03/07/24 16:53 RDW 12.7 % (12.1-15.1) 03/07/24 16:53 Plt Count 167 10^3/cmm (157-399) 03/07/24 16:53 MPV 11.6 fL (7.4-10.4) H 03/07/24 16:53 Neut % (Auto) 70.2 % 03/07/24 16:53 Lymph % (Auto) 19.7 % 03/07/24 16:53 [place]ado % (Auto) 7.8 % 03/07/24 16:53 Eos % (Auto) 1.7 % 03/07/24 16:53 Baso % (Auto) 0.3 % 03/07/24 16:53 Neut # (Auto) 6.23 10^3/uL (1.8-7.7) 03/07/24 16:53 Lymph # (Auto) 1.8 10^3/uL (0.8-4.8) 03/07/24 16:53 [place] # (Auto) 0.7 10^3/uL (0.2-0.9) 03/07/24 16:53 Eos # (Auto) 0.2 10^3/uL (0.0-0.8) 03/07/24 16:53 Baso # (Auto) 0.0 10^3/uL (0.0-0.1) 03/07/24 16:53 Nucleated RBC % (auto) 0 % 03/07/24 16:53 Nucleated RBCs # 0.0 /100WBC 03/07/24 16:53 Specimen Type Arterial 03/07/24 16:47 Sample Site Radial, left 03/07/24 16:47 ABG pH 7.39 (7.35-7.45) 03/07/24 16:47 ABG pCO2 > 102.0 mmHg (35-45) H* 03/07/24 16:47 ABG pO2 90.9 mmHg (80.0-100.0) 03/07/24 16:47 ABG PO2/FiO2 Ratio 252 03/07/24 16:47 ABG HCO3 63.4 mmol/L (22-26) H 03/07/24 16:47 ABG O2 Saturation 97.8 03/07/24 16:47 ABG Base Excess 31.7 mmol/L (-2.0-2.0) H 03/07/24 16:47 Braxton Test Pos 03/07/24 16:47 A-a O2 Gradient 5.6 mmHg (5-10) 03/07/24 16:47 Hematocrit 37.7 % (37-47) 03/07/24 16:47 Hgb O2 Saturation 92.2 % (95-100) L 03/07/24 16:47 Carboxyhemoglobin 5.3 %THgb (0.4-20.1) 03/07/24 16:47 Methemoglobin 0.4 % (0.4-1.5) 03/07/24 16:47 Total Hemoglobin 12.3 g/dL (12-16) 03/07/24 16:47 Sodium 136.0 mmol/L (131-143) 03/07/24 16:47 Potassium 3.0 mmol/L (3.5-5.0) L 03/07/24 16:47 Glucose 142.0 mg/dL (70-115) H 03/07/24 16:47 Ionized Calcium 1.2 mmol/L (1.1-1.4) 03/07/24 16:47 O2 Delivery Device Nc 03/07/24 16:47 O2 Liters/Min 4.0 % 03/07/24 16:47 FiO2 36.0 % 03/07/24 16:47 Boat Cleaning Supervisor ID [id number] 03/07/24 16:47 Sodium 136 mmol/L (136-145) 03/07/24 16:53 Potassium 3.5 mmol/L (3.5-5.1) 03/07/24 16:53 Chloride 76 mmol/L (98-107) L 03/07/24 16:53 Carbon Dioxide > 55 mmol/L (22-29) H* 03/07/24 16:53 Anion Gap 8.5 (5-19) 03/07/24 16:53 BUN 13 mg/dL (6-20) 03/07/24 16:53 Creatinine 1.0 mg/dL (0.5-0.9) H 03/07/24 16:53 GFR Calculation 57.6 mL/min (90-130) L 03/07/24 16:53 Glucose 147 mg/dL (65-115) H 03/07/24 16:53 Calculated Osmolality 285 mOsm/kg (285-295) 03/07/24 16:53 Calcium 9.5 mg/dL (8.5-10.5) 03/07/24 16:53 Total Bilirubin 0.3 mg/dL (0.15-1.2) 03/07/24 16:53 AST 12 U/L (0-32) 03/07/24 16:53 ALT 11 U/L (0-33) 03/07/24 16:53 Alkaline Phosphatase 92 U/L (35-105) 03/07/24 16:53 Troponin T Baseline 22 ng/L (0-10) H 03/07/24 16:53 Total Protein 6.2 g/dL (6.6-8.7) L 03/07/24 16:53 Albumin 4.7 g/dL (3.5-5.2) 03/07/24 16:53 Globulin 1.5 g/dL (1.3-4.6) 03/07/24 16:53 All radiology interpretation(s) finalized by discharge Discharge Plan Discharge Patient Disposition: Admitted As Inpatient Clinical Impression: Acute and chronic respiratory failure with hypercapnia, Acute exacerbation of chronic obstructive airways disease Condition: Stable Prescriptions: No Action (DME) oxygen and concentrator See Rx Instructions .Route .MEDSUPPLY Qty: 1 0RF Rx Instructions: use 2L O2 via NC with exercise (DME) Portable oxygen concentrator See Rx Instructions .Route .MEDSUPPLY Qty: 1 0RF Rx Instructions: As directed (DME) Inspire Portable oxygen concentrator See Rx Instructions .Route .MEDSUPPLY Qty: 1 0RF Rx Instructions: Rate 4L O2 (DME) Portable Oxygen Concentrator 2-4L/NC See Rx Instructions .Route .MEDSUPPLY Qty: 1 0RF Rx Instructions: Continuous oxygen at 2-4L/NC. (DME) Portable Oxygen Concentrator 2-4L/NC 0 .Route .MEDSUPPLY ipratropium-albuterol 0.5 mg-3 mg(2.5 mg base)/3 mL solution for nebulization 3 ml inhalation Q8H Qty: 90 0RF formoterol fumarate [Perforomist] 20 mcg/2 mL solution for nebulization 2 ml inhalation BID Qty: 120 0RF albuterol sulfate [Ventolin HFA] 90 mcg/actuation HFA aerosol inhaler 2 puff inhalation QID PRN (Reason: Shortness Of Breath) Qty: 8.5 1RF furosemide 40 mg tablet 40 mg PO DAILY@0800 Qty: 30 3RF bupropion HCl 150 mg tablet extended release 24 hr 150 mg PO QAM Qty: 30 3RF pantoprazole 40 mg tablet,delayed release (DR/EC) 40 mg PO DAILY Qty: 30 3RF tiotropium bromide [Spiriva with HandiHaler] 18 mcg capsule, w/inhalation device 1 cap inhalation DAILY Qty: 60 3RF Rx Instructions: puncture 1 cap using device; one dose = 2 inhalations polyethylene glycol 3350 17 gram/dose powder 17 g PO BID PRN (Reason: Constipation) sennosides [Senna Lax] 8.6 mg Tablet 8.6 mg PO BID PRN (Reason: Constipation) ferrous gluconate 324 mg (37.5 mg iron) tablet 37.5 mg PO BIDWM albuterol sulfate 2.5 mg /3 mL (0.083 %) solution for nebulization See Rx Instructions .ROUTE .COMPLEX PRN (Reason: sob) Qty: 180 2RF Dose Instruction: INHALE ONE vial via NEBULIZER FOUR TIMES DAILY NEEDED FOR SHORTNESS OF BREATH OR wheezing Rx Instructions: INHALE ONE vial via NEBULIZER FOUR TIMES DAILY NEEDED FOR SHORTNESS OF BREATH OR wheezing Referrals: Reena López MD [Primary Care Provider] - Coding Level of Care Code ED Plant Anatomist for Vishal Badillo
--- NOTE | 2024-03-07 16:40 | ECG_ITS ---
[facility] Test Date: 2024-03-07 Pat Name: Estelle Pascual Department: Room: Gender: Female Internal Affairs Commander: : 1970 Requested By: Kentrell Conti Order Number: [id number] Tawanda MD: Antonieta Martin M.D. Measurements Intervals [place] Rate: 86 P: 73 DE: 146 QRS: 101 QRSD: 82 T: 70 QT: 269 QTc: 322 Interpretive Statements SINUS RHYTHM POSSIBLE LEFT ATRIAL ENLARGEMENT RIGHT AXIS DEVIATION NONSPECIFIC ST & T-WAVE ABNORMALITY Compared to ECG 12/16/2023 10:37:09 Right-axis deviation now present T-wave abnormality now present Electronically Signed On 03-08-2024 14:06:59 CRAFT RECRUITER by Antonieta Martin M.D. [email or web address]
[2024-03-07] MEDS: dexamethasone 10 mg/mL INJ IM (16:49)
[2024-03-07 16:59] LABS: ABG PCO2 > 102.0 mmHg (35-45); ABG PH Result 7.39 (7.35-7.45); Alveolar-Arterial Oxygen Gradi 5.6 mmHg (5-10); Arterial Blood Gas Hematocrit 37.7 % (37-47); Base Excess ABG 31.7 mmol/L (-2.0-2.0); Blood Gas Allen Test Pos; Blood Gas Operator Identificat AMH; Blood Gas Sample Site Radial, left; Blood Gas Sample Type Arterial; Carboxyhemoglobin 5.3 %THgb (0.4-20.1); HCO3 ABG 63.4 mmol/L (22-26); HGB O2 Sat 92.2 % (95-100); Ionized Calcium Level - ABG 1.2 mmol/L (1.1-1.4); Methemoglobin 0.4 % (0.4-1.5); Oxygen Device NC; Oxygen Saturation ABG 97.8; PO2 ABG 90.9 mmHg (80.0-100.0); PO2 FiO2 Ratio Arterial Blood 252; Total Hemoglobin 12.3 g/dL (12-16)
[2024-03-07 17:04] LABS: Basophils % 0.3 %; Eosinophils # 0.2 10^3/uL (0.0-0.8); Eosinophils % 1.7 %; Hematocrit 41.7 % (36-47); Lymphocytes # 1.8 10^3/uL (0.8-4.8); Lymphocytes % 19.7 %; Mean Corpuscular Hemoglobin 29.8 pg (27-33); Mean Corpuscular Volume 99.3 fl (85-98); Mean Platelet Volume 11.6 fL (7.4-10.4); Monocytes # 0.7 10^3/uL (0.2-0.9); Monocytes % 7.8 %; Neutrophils # 6.23 10^3/uL (1.8-7.7); Neutrophils % 70.2 %; Nucleated Red Blood Cells % 0 %; Platelet Count 167 10^3/cmm (157-399); Red Cell Distribution Width 12.7 % (12.1-15.1); White Blood Count 8.88 10^3/uL (3.29-11.43)
[2024-03-07 17:25] LABS: Alanine Aminotransferase 11 U/L (0-33); Albumin Level 4.7 g/dL (3.5-5.2); Alkaline Phosphatase 92 U/L (35-105); Aspartate Amino Transferase 12 U/L (0-32); Blood Urea Nitrogen 13 mg/dL (6-20); Calcium 9.5 mg/dL (8.5-10.5); Chloride 76 mmol/L (98-107); Creatinine Clr Calc Pharmacy 51.4276; Globulin 1.5 g/dL (1.3-4.6); Glomerular Filtration Rate 57.6 mL/min (90-130); Glucose 147 mg/dL (65-115); Osmolality Calculated 285 mOsm/kg (285-295); Potassium 3.5 mmol/L (3.5-5.1); Sodium 136 mmol/L (136-145); Total Bilirubin 0.3 mg/dL (0.15-1.2); Total Protein 6.2 g/dL (6.6-8.7)
[2024-03-07 17:27] LABS: Troponin(5th) Baseline 22 ng/L (0-10)
--- NOTE | 2024-03-07 17:38 | P.HP_ITS ---
Providers/Chief Complaint 2 Primary Care Provider: Reena López MD Chief Complaint: O2 is high History of Present Illness Estelle Pascual is a 53 year old female with past medical of COPD usually on 5 to 6 L oxygen supplementation, BiPAP at night who was last in the hospital in 12/27 when she was discharged back home with advice for trilogy machine which she has not received as of now. As per the patient they still tried to qualify the trilogy machine through the insurance and they are waiting on the same. As the patient's daughter who is at bedside patient has been having worsening hallucination, difficulty in breathing, confusion over the last 3 days. Today morning she was desaturating on her BiPAP so they placed her on nasal cannula after which her saturations improved but her confusion and hallucinations worsened for the part of the ER. In the ED she was found to have severe hypercapnia and was placed on BiPAP. On examination patient is awake and alert, able to have complete conversation and participate in history taking. She denies any nausea, vomiting, headache. Does complain of more cough than usual without expectoration. Did have diarrhea a few days ago but no diarrhea recently. Review of Systems 2 General: Reports: 10 or more systems reviewed and unremarkable except in HPI and below Const: Denies: fever(s), chills, body aches, change in appetite, change in weight, malaise, night sweats, diaphoresis, change in sleep pattern, daytime sleepiness or snoring Eyes: Denies: change in vision, blurry vision, photophobia, eye discomfort or eye discharge ENMT: Denies: throat pain, enlarged tonsils, hoarseness, mouth pain, oral sores, dry mouth, tinnitus, nasal congestion or post nasal drip Card: Denies: chest pain, palpitations, irregular heart rhythm, edema, swelling of feet/ankles, lightheadedness, syncope, pre-syncope, dyspnea on exertion, orthopnea, leg pain with exertion or acrocyanosis Resp: Denies: dyspnea, productive cough, non-productive cough, wheezing, stridor, pain on inspiration, change in phlegm color, hemoptysis or chest congestion GI: Denies: abdominal pain, nausea, vomiting, hematemesis, coffee ground emesis, dysphagia, heartburn, diarrhea, constipation, bloating, GI cramping, change in bowel habits, pain on defecation, hematochezia or melena : Denies: flank pain, dysuria, urinary frequency, urinary urgency, urinary hesitancy, nocturia or hematuria Musc: Denies: neck pain, back pain, extremity pain, joint pain, joint swelling, joint redness, joint stiffness or limited range of motion Neuro: Denies: headache(s), numbness in extremities, weakness in extremities, sensory changes, lack of coordination, difficulty walking, frequent falls, dizziness, vertigo, confusion, Slurred speech present, difficulty communicating thoughts or seizure-like activity Psych: Denies: anxiety, depression, mood swings, panic attacks, hopelessness or irritability Endo: Denies: polyuria, polydipsia, tired all the time, cold intolerance, excessive sweating, flushing or heat intolerance Tanner/Lymph: Denies: easy bruising or easy bleeding All/Imm: Denies: tongue swelling, facial swelling or acute wheezing Medications/Allergies Home Medications Medication Instructions Recorded Confirmed Last Taken Type oxygen and concentrator #1 03/03/20 01/15/24 Unknown Rx Inspire Portable oxygen #1 10/30/22 01/15/24 Unknown Rx concentrator Portable oxygen concentrator #1 ea 10/30/22 01/15/24 Unknown Rx Portable Oxygen Concentrator 06/18/23 01/15/24 Unknown History Portable Oxygen Concentrator #1 06/18/23 01/15/24 Unknown Rx ferrous gluconate 324 mg (37.5 mg 37.5 mg PO BIDWM 07/18/23 01/15/24 12/16/23 History iron) tablet polyethylene glycol 3350 17 17 g PO BID PRN Constipation 07/18/23 01/15/24 07/17/23 History gram/dose oral powder sennosides 8.6 mg tablet (Senna 8.6 mg PO BID PRN Constipation 07/18/23 01/15/24 07/17/23 History Lax) albuterol sulfate 2.5 mg/3 mL See Rx Instructions .Route 07/25/23 01/15/24 07/17/23 Rx (0.083 %) solution for nebulization .COMPLEX PRN sob #180 mL formoterol fumarate 20 mcg/2 mL 2 ml inhalation BID COPD #120 mL 11/01/23 01/15/24 12/16/23 Rx solution for nebulization (Perforomist) ipratropium 0.5 mg-albuterol 3 mg 3 ml inhalation Q8H shortness of 11/01/23 01/15/24 Unknown Rx (2.5 mg base)/3 mL nebulization breath or wheezing #90 mL soln albuterol sulfate 90 mcg/actuation 2 puff inhalation QID PRN 12/27/23 01/15/24 Unknown Rx aerosol inhaler (Ventolin HFA) Shortness Of Breath #8.5 grams bupropion HCl 150 mg 24 hr tablet, 150 mg PO QAM #30 tabs 01/01/24 01/15/24 Unknown Rx extended release furosemide 40 mg tablet 40 mg PO DAILY@0800 #30 tabs 01/01/24 01/15/24 Unknown Rx pantoprazole 40 mg tablet,delayed 40 mg PO DAILY #30 tabs 01/01/24 01/15/24 Unknown Rx release tiotropium bromide 18 mcg capsule 1 cap inhalation DAILY #60 01/23/24 Unknown Rx with inhalation device (Spiriva inhalations with HandiHaler) Allergies Allergy/AdvReac Type Severity Reaction Status Date / Time hydrocodone Allergy ADR-Vomitin Verified 01/15/24 15:49 g tramadol Allergy ADR-Itching Verified 01/15/24 15:49 PFSH Acute 2 PFSH: Medical History Chronic hypercapnic respiratory failure Upper GI bleeding TIA (transient ischemic attack) Dependence on supplemental oxygen HTN (hypertension) Acute exacerbation of chronic obstructive airways disease Tenosynovitis of foot Fracture of fifth metatarsal bone of right foot Gastroesophageal reflux disease Hypertension Anxiety COPD (chronic obstructive pulmonary disease) Right ankle pain Right foot pain Surgical History Hx of tubal ligation History of tonsillectomy and adenoidectomy Hx of cholecystectomy Hx of hernia repair Hx of section Hx of colonoscopy (~2012) Family History Father Cancer lung Heart disease Mother Heart disease Social History Smoking and tobacco/nicotine status: current every day tobacco/nicotine user cigarettes Packs smoked per day: 1 Years cigarettes smoked: 45 Second hand smoke exposure: Yes Alcohol intake: former Former alcohol use details: sober x 20 yrs Substance/Drug Use: never Caregiver/support person: Yes Lives independently: Yes Household members: spouse and children Marital status: service: No Current occupational status: unemployed Current gender identity: Female Special lauryn needs: No Agree to transfusion: No Vitals/I&O/Wt Last Vital Signs Temp 98.1 F 03/07/24 16:21 Pulse 94 03/07/24 16:21 Resp 17 03/07/24 16:21 BP 98/65 03/07/24 16:21 Pulse Ox 97 03/07/24 17:17 O2 Del Method Nasal Cannula 03/07/24 16:21 O2 Flow Rate 2 03/07/24 16:21 FiO2 30 03/07/24 17:17 Weight last 48 hrs Weight 59.874 kg Physical Exam 2 Narrative: General: No acute distress, AO x3 on BiPAP ventilation HEENT: PERRLA, pupils bilaterally equal and reactive Chest: Normal vesicular breath sounds, no added sounds, equal good air entry bilaterally CVS: S1-S2 regular, no murmurs, no tachycardia, no gallops, no rubs Abdomen: Soft, nontender, no organomegaly, bowel sounds present Neuro: No focal deficits, no facial deformity, AO x3, power 5/5 in all limbs Data 03/07/24 16:53 03/07/24 16:53 A&P Assessment and plan (1) Acute and chronic respiratory failure with hypercapnia: (2) Acute exacerbation of chronic obstructive airways disease: (3) Metabolic alkalosis with respiratory acidosis: Plan Acute on chronic respiratory failure with hypercapnia: COPD exacerbation. Last discharge patient was advised to hepatology which she is still awaiting from her insurance company for approval. Currently found to have a normal pH with pCO2 of more than 102, found to have bicarb of more than 55 on BMP. Concerns for respiratory acidosis with metabolic alkalosis. Maintained on AVAPS. Repeat ABG in few hours. Diamox 500 mg oral daily. Monitor BMP daily to monitor for contraction alkalosis. Fluid restriction up to 1500 cc. Dee catheterization. Nebulization with ipratropium, Xopenex every 6 hours, Pulmicort twice daily Solu-Medrol 40 mg Q6 hourly. Respiratory viral panel, urine Legionella, bacterial antigen, trend procalcitonin, check sputum culture. For now empirically start patient on antibiotics for community-acquired pneumonia with IV ceftriaxone and oral azithromycin. Superadded bacterial infection less likely. Will de-escalate rapidly within next 24 hours patient improves. CODE STATUS: Daughter will be the DPOA. Patient is okay with chest compressions and mechanical ventilation. Full code N.p.o. Protonix for PUD prophylaxis Heparin 5000 SQ q12h for DVT PPx Attestations 2 Medical Necessity Statement*: Admit to ICU for respiratory failure with hypercapnia with high concerns for contraction alkalosis, respiratory acidosis with metabolic alkalosis Diagnoses Acute and chronic respiratory failure with hypercapnia J96.22 Acute exacerbation of chronic obstructive airways disease J44.1 Metabolic alkalosis with respiratory acidosis E87.4
[2024-03-07 17:43] LABS: Anion Gap 8.5 (5-19)
[2024-03-07 17:44] LABS: Carbon Dioxide > 55 mmol/L (22-29)
[2024-03-07 17:58] LABS: D Dimer 0.47 ug/mLFEU (0-0.59)
[2024-03-07] MEDS: ipratropium-albuterol 3 mL Neb INHALATION (18:01)
--- NOTE | 2024-03-07 18:04 | PC.NURSE ---
Dr. Francois just called me and told me not to give the patient the lasix and the solumedrol that had been ordered. I returned the lasix, and had to waste the solumedrol because I had already mixed the solumedrol.
[2024-03-07] MEDS: cefTRIAXone 1,000 mg SDV 1000 MG IVP (18:11)
[2024-03-07 18:19] LABS: Thyroid Stimulating Hormone 1.37 uIU/mL (0.27-4.20)
[2024-03-07 19:19] LABS: Troponin 5 2HR 18.71 ng/L (0-10)
[2024-03-07 19:21] LABS: Troponin 5 2HR Delta -3.29 ABS# (0-10)
--- NOTE | 2024-03-07 19:31 | PC.NURSE ---
This nurse took over care at shift change from Mayra CRAIN.
[2024-03-07] MEDS: budesonide 0.5 mg/2 mL Neb INHALATION (19:47)
[2024-03-07] MEDS: levalbuterol 0.63 mg/3 mL Neb INHALATION (19:48)
[2024-03-07] MEDS: ipratropium 0.5 mg/2.5 mL Neb INHALATION (19:48)
[2024-03-07] MEDS: acetaZOLAMIDE 250 mg Tablet 500 MG PO (19:59)
[2024-03-07 20:11] LABS: Procalcitonin 0.08 ng/mL (0-0.5)
[2024-03-07] MEDS: pantoprazole 40 mg SDV IVP (20:38)
[2024-03-07] MEDS: methylPREDNISolone sod succ 40 mg/mL INJ IVP (20:45)
[2024-03-07] MEDS: heparin 5,000 unit/mL INJ 1 mL 5000 UNIT SUBCUT (20:49)
[2024-03-07 21:33] LABS: Bilirubin Urine Negative (Negative); Blood Urine Negative (Negative); Glucose Urine UA Negative (Normal); Ketones Urine Negative (Negative); Leukocyte Esterase Urine Negative (Negative); Nitrate Urine Negative (Negative); Protein Urine Negative (Negative); Specific Gravity, Urine 1.009 (1.005-1.030); Urine Appearance Clear (CLEAR); Urine Color Yellow (Yellow); Urobilinogen Urine 0.2 mg/dL (Negative); pH Urine 8.5 (5-7)
[2024-03-07 21:38] LABS: Add Urine Microscopic? YES; Bacteria Urine None Seen /hpf; Hyaline Casts Urine 2.46 /lpf; RBC Urine 0-2 /hpf (0-2); Squamous Epithelial Cell Urine 0-5 /hpf (0-5); WBC Urine 0-5 /hpf (0-5)
[2024-03-07] MEDS: lanolin oint 7 gm 1 APPLIC TOPICAL (22:19)
[2024-03-07 22:28] LABS: ABG PH Result 7.43 (7.35-7.45); Arterial Blood Gas Hematocrit 37.6 % (37-47); Blood Gas Allen Test Pos; Blood Gas Sample Type Arterial; Carboxyhemoglobin 3.7 %THgb (0.4-20.1); HGB O2 Sat 93.8 % (95-100); Ionized Calcium Level - ABG 1.1 mmol/L (1.1-1.4); Oxygen Saturation ABG 98.4; Total Hemoglobin 12.3 g/dL (12-16)
[2024-03-07 22:29] LABS: Blood Gas Operator Identificat JDB; Blood Gas Sample Site Brachial, right; Oxygen Device NC
--- NOTE | 2024-03-07 22:31 | ECG_ITS ---
[facility] Test Date: 2024-03-07 Pat Name: Estelle Pascual Department: Room: [facility] Gender: Female Pin Cleaner: : 1970 Requested By: Kentrell Conti Order Number: [id number] Reading MD: Antonieta Martin M.D. Measurements Intervals [place] Rate: 99 P: 83 WI: 142 QRS: 130 QRSD: 86 T: 60 QT: 346 QTc: 444 Interpretive Statements SINUS RHYTHM MODERATE T-WAVE ABNORMALITY, CONSIDER ANTERIOR ISCHEMIA Compared to ECG 03/07/2024 16:40:40 Possible ischemia now present Electronically Signed On 03-08-2024 14:13:33 SCREENING UNIT REGISTERED NURSE by Antonieta Martin M.D. [email or web address]
[2024-03-07 23:03] LABS: Troponin 5 6HR 18.07 ng/L (0-10)
[2024-03-07 23:08] LABS: Troponin 5 6HR Delta -3.93 ng/L (0-12)
[2024-03-07 23:12] LABS: Adenovirus Not Detected (NOT DETECT); Chlamydia Pneumoniae Not Detected (NOT DETECT); Coronavirus 229E,HKU1,NL63,OC4 Not Detected (NOT DETECT); Human Metapneumovirus Not Detected (NOT DETECT); Human Rhinovirus/Enterovirus Not Detected (NOT DETECT); Influenza A Not Detected (NOT DETECT); Influenza A H1 Not Detected (NOT DETECT); Influenza A H1-2009 Not Detected (NOT DETECT); Influenza A H3 Not Detected (NOT DETECT); Influenza B Not Detected (NOT DETECT); Mycoplasma Pneumoniae Not Detected (NOT DETECT); Parainfluenza Virus Type 1 Not Detected (NOT DETECT); Parainfluenza Virus Type 2 Not Detected (NOT DETECT); Parainfluenza Virus Type 3 Not Detected (NOT DETECT); Parainfluenza Virus Type 4 Not Detected (NOT DETECT); Respiratory Syncytial Virus A Not Detected (NOT DETECT); Respiratory Syncytial Virus B Not Detected (NOT DETECT); SARS-COV-2 Not Detected (NOT DETECT)
[2024-03-08] VITALS (39 sets, daily range): BP systolic 78–130; BP diastolic 54–98; PULSE 75–108; RESP 13–29; TEMP 36.2–37.2; O2SAT 86–99
[2024-03-08] MEDS: acetaminophen 325 mg Tablet 650 MG PO (00:35)
[2024-03-08] MEDS: methylPREDNISolone sod succ 40 mg/mL INJ IVP ×4 (01:00→21:29)
--- NOTE | 2024-03-08 01:05 | PC.NURSE ---
Time changed from daylight savings time to central standard time.
--- NOTE | 2024-03-08 01:17 | PC.NURSE ---
Contacted Dr. Quesada in reference to patient's complaint of 5/10 abdominal pain and being NPO. Receiced orders for NPO except for sip chips and meds, allowing for administration of existing PO Tylenol for pain.
[2024-03-08] MEDS: ipratropium 0.5 mg/2.5 mL Neb INHALATION ×4 (01:21→20:20)
[2024-03-08] MEDS: levalbuterol 0.63 mg/3 mL Neb INHALATION ×4 (01:21→20:20)
[2024-03-08] MEDS: morphine 4 mg/mL SDV 1 mL 2 MG IVP (01:52)
[2024-03-08 03:15] LABS: Basophils % 0.2 %; Hematocrit 38.9 % (36-47); Lymphocytes # 0.6 10^3/uL (0.8-4.8); Lymphocytes % 14.7 %; Mean Corpuscular HGB Conc 31.1 g/dL (30-55); Mean Corpuscular Hemoglobin 30.6 pg (27-33); Mean Corpuscular Volume 98.2 fl (85-98); Monocytes # 0.1 10^3/uL (0.2-0.9); Monocytes % 1.2 %; Neutrophils # 3.54 10^3/uL (1.8-7.7); Neutrophils % 83.7 %; Nucleated Red Blood Cells % 0 %; Platelet Count 155 10^3/cmm (157-399); Red Blood Count 3.96 10^6/uL (3.85-5.65); Red Cell Distribution Width 12.7 % (12.1-15.1); White Blood Count 4.23 10^3/uL (3.29-11.43)
[2024-03-08 03:31] LABS: Alanine Aminotransferase 8 U/L (0-33); Albumin Level 4.1 g/dL (3.5-5.2); Alkaline Phosphatase 81 U/L (35-105); Anion Gap 13.1 (5-19); Aspartate Amino Transferase 12 U/L (0-32); Blood Urea Nitrogen 16 mg/dL (6-20); Calcium 9.3 mg/dL (8.5-10.5); Chloride 77 mmol/L (98-107); Creatinine Clr Calc Pharmacy 42.4121; Globulin 2.4 g/dL (1.3-4.6); Glomerular Filtration Rate 46.6 mL/min (90-130); Glucose 166 mg/dL (65-115); Magnesium 1.6 mg/dL (1.7-2.3); Osmolality Calculated 289 mOsm/kg (285-295); Phosphorus 2.4 mg/dL (2.5-4.5); Potassium 3.1 mmol/L (3.5-5.1); Sodium 137 mmol/L (136-145); Total Bilirubin 0.2 mg/dL (0.15-1.2); Total Protein 6.5 g/dL (6.6-8.7)
[2024-03-08 03:36] LABS: Carbon Dioxide 50 mmol/L (22-29)
[2024-03-08 03:37] LABS: Estmated Average Glucose 111; Hemoglobin A1C 5.5 % (4.0-6.0)
[2024-03-08] MEDS: buPROPion XL (24 HR) 150 mg Tablet PO (06:27)
[2024-03-08] MEDS: budesonide 0.5 mg/2 mL Neb INHALATION ×2 (07:15→20:20)
[2024-03-08] MEDS: heparin 5,000 unit/mL INJ 1 mL 5000 UNIT SUBCUT ×2 (08:50→21:29)
[2024-03-08] MEDS: acetaZOLAMIDE 250 mg Tablet 500 MG PO (08:50)
[2024-03-08] MEDS: azithromycin 250 mg Tablet 500 MG PO (08:51)
[2024-03-08 10:23] LABS: ABG PCO2 71.5 mmHg (35-45); ABG PH Result 7.49 (7.35-7.45); Arterial Blood Gas Hematocrit 35.5 % (37-47); Base Excess ABG 26.1 mmol/L (-2.0-2.0); Blood Gas Allen Test Pos; Blood Gas Operator Identificat CAK; Blood Gas Sample Site Radial, left; Blood Gas Sample Type Arterial; Carboxyhemoglobin 1.3 %THgb (0.4-20.1); HCO3 ABG 53.8 mmol/L (22-26); HGB O2 Sat 92.4 % (95-100); Ionized Calcium Level - ABG 1.2 mmol/L (1.1-1.4); Methemoglobin 0.3 % (0.4-1.5); Oxygen Device BIPAP; Oxygen Saturation ABG 93.9; PO2 ABG 65.5 mmHg (80.0-100.0); PO2 FiO2 Ratio Arterial Blood 145; Potassium Level - ABG 3.1 mmol/L (3.5-5.0); Total Hemoglobin 11.6 g/dL (12-16)
[2024-03-08] MEDS: potassium phosphate (mEq K) 40 MEQ in sodium chloride 0.9% (100 ml) 100 ML 27.27 MEQ IV (10:45)
[2024-03-08] MEDS: magnesium sulfate premix 1 GM/100 ML PIGGYBACK IV (10:46)
--- NOTE | 2024-03-08 15:12 | P.PN_ITS ---
Subjective 2 Subjective: Today morning patient seen on BiPAP. Awake and alert. Repeat ABG was done which showed improvement and she was placed on nasal cannula after which patient was awake and alert and able to have complete conversation with daughter at bedside. Vitals/I&O/Wt Last Vital Signs Temp 97.2 F L 03/08/24 08:00 Pulse 90 03/08/24 13:36 Resp 16 03/08/24 13:30 BP 120/98 03/08/24 12:30 Pulse Ox 94 03/08/24 13:30 O2 Del Method Nasal Cannula 03/08/24 13:30 O2 Flow Rate 6 03/08/24 13:30 FiO2 40 03/08/24 10:30 03/08/24 03/08/24 03/08/24 06:59 14:59 22:59 Intake Total 400 / 400 Output Total Balance 400 / 400 Weight last 48 hrs Weight 59.278 kg Weight 58.546 kg Weight 59.874 kg Physical Exam 2 Narrative: General: No acute distress, AO x3 on BiPAP ventilation HEENT: PERRLA, pupils bilaterally equal and reactive Chest: Normal vesicular breath sounds, no added sounds, equal good air entry bilaterally CVS: S1-S2 regular, no murmurs, no tachycardia, no gallops, no rubs Abdomen: Soft, nontender, no organomegaly, bowel sounds present Neuro: No focal deficits, no facial deformity, AO x3, power 5/5 in all limbs Urinary Catheter Management: Dee: Cath Placed During This Visit: yes Reason for Continuing Indwelling Catheter: Accurate Measurement of Urinary Output in Critically Ill Patients Urinary Catheter Date of Insertion: 03/07/24 Urinary Catheter Time of Insertion: 20:55 Data 03/08/24 02:46 03/08/24 02:46 Micro: Microbiology 03/08/24 00:40 Gram Stain - Final Sputum - Expectorated Sputum 03/07/24 21:10 Bacterial Antigens - Final Urine Kidney 03/07/24 21:10 Legionella Urinary Antigen - Final Unknown Source A&P Assessment and plan (1) Acute and chronic respiratory failure with hypercapnia: (2) Acute exacerbation of chronic obstructive airways disease: (3) Metabolic alkalosis with respiratory acidosis: Plan Acute on chronic respiratory failure with hypercapnia: COPD exacerbation. Last discharge patient was advised to hepatology which she is still awaiting from her insurance company for approval. Currently found to have a normal pH with pCO2 of more than 102, found to have bicarb of more than 55 on BMP. Concerns for respiratory acidosis with metabolic alkalosis. Maintain oxygen supplementation keeping saturation 88% during the day. BiPAP nightly. Continue with Diamox 500 mg oral daily. Monitor BMP daily to monitor for contraction alkalosis. Fluid restriction up to 1500 cc. Dee catheterization. Nebulization with ipratropium, Xopenex every 6 hours, Pulmicort twice daily Solu-Medrol 40 mg Q6 hourly. Negative Respiratory viral panel, urine Legionella, bacterial antigen. Follow- up sputum culture For now empirically start patient on antibiotics for community-acquired pneumonia with IV ceftriaxone and oral azithromycin. Superadded bacterial infection less likely. Will de-escalate rapidly within next 24 hours patient improves. CODE STATUS: Daughter will be the DPOA. Patient is okay with chest compressions and mechanical ventilation. Full code Start on cardiac diet Protonix for PUD prophylaxis Heparin 5000 SQ q12h for DVT PPx [facility] Attestations 2 Medical Necessity Statement*: Requires further hospitalization for management of acute on chronic hypercapnic respiratory failure in setting of COPD exacerbation, contraction alkalosis Diagnoses Acute and chronic respiratory failure with hypercapnia J96.22 Acute exacerbation of chronic obstructive airways disease J44.1 Metabolic alkalosis with respiratory acidosis E87.4
[2024-03-08] MEDS: cefTRIAXone 1,000 mg SDV 1000 MG IVP (18:07)
--- NOTE | 2024-03-08 18:24 | PC.NURSE ---
Pt rested in bed throughout the shift. She as using BiPap at 40% this am resting soundly with her eyes closed She was switched to 6lpm/NC around 1100, and has been using that the rest of the shift. The plan is for her to use the BiPap nocturnally. No complaints of pain, shortness of breath or other discomforts this shift. Lungs sounds remains clear but diminished. She has ate her meals well. Fluid restrictions started this afternoon, 1500 ml. She well under the limit. 650ml of clear yellow urine outout noted.
[2024-03-08] MEDS: pantoprazole 40 mg SDV IVP (21:29)
[2024-03-09] VITALS (13 sets, daily range): BP systolic 103–111; BP diastolic 63–75; PULSE 77–96; RESP 14–20; TEMP 36.4–36.9; O2SAT 91–98
[2024-03-09] MEDS: ipratropium 0.5 mg/2.5 mL Neb INHALATION ×4 (02:57→20:37)
[2024-03-09] MEDS: levalbuterol 0.63 mg/3 mL Neb INHALATION ×4 (02:57→20:36)
[2024-03-09] MEDS: methylPREDNISolone sod succ 40 mg/mL INJ IVP ×4 (03:18→21:15)
[2024-03-09 05:52] LABS: Basophils % 0.1 %; Lymphocytes % 5.8 %; Mean Corpuscular HGB Conc 31.4 g/dL (30-55); Mean Corpuscular Hemoglobin 29.6 pg (27-33); Mean Corpuscular Volume 94.4 fl (85-98); Mean Platelet Volume 12.5 fL (7.4-10.4); Monocytes # 0.4 10^3/uL (0.2-0.9); Monocytes % 2.2 %; Neutrophils # 15.22 10^3/uL (1.8-7.7); Neutrophils % 91.4 %; Nucleated Red Blood Cells % 0 %; Platelet Count 170 10^3/cmm (157-399); Red Blood Count 3.92 10^6/uL (3.85-5.65); Red Cell Distribution Width 13.2 % (12.1-15.1); White Blood Count 16.64 10^3/uL (3.29-11.43)
[2024-03-09 06:28] LABS: Alanine Aminotransferase 7 U/L (0-33); Albumin Level 4.1 g/dL (3.5-5.2); Alkaline Phosphatase 72 U/L (35-105); Aspartate Amino Transferase 10 U/L (0-32); Blood Urea Nitrogen 36 mg/dL (6-20); Calcium 9.1 mg/dL (8.5-10.5); Chloride 80 mmol/L (98-107); Creatinine Clr Calc Pharmacy 32.3015; Globulin 2.1 g/dL (1.3-4.6); Glomerular Filtration Rate 33.5 mL/min (90-130); Glucose 176 mg/dL (65-115); Osmolality Calculated 289 mOsm/kg (285-295); Sodium 133 mmol/L (136-145); Total Bilirubin 0.2 mg/dL (0.15-1.2); Total Protein 6.2 g/dL (6.6-8.7)
[2024-03-09] MEDS: buPROPion XL (24 HR) 150 mg Tablet PO (06:29)
[2024-03-09 06:42] LABS: Carbon Dioxide 41 mmol/L (22-29)
[2024-03-09] MEDS: budesonide 0.5 mg/2 mL Neb INHALATION ×2 (08:15→20:36)
[2024-03-09] MEDS: azithromycin 250 mg Tablet 500 MG PO (08:39)
[2024-03-09] MEDS: acetaZOLAMIDE 250 mg Tablet 500 MG PO (08:39)
[2024-03-09] MEDS: heparin 5,000 unit/mL INJ 1 mL 5000 UNIT SUBCUT ×2 (08:39→21:16)
--- NOTE | 2024-03-09 09:56 | PC.CHAP ---
Pastoral Care Encounter/Spiritual Assessment Type of Contact [] Declined medical biller coder visit [] Patient/Family/Request visit [] Outpatient visit [] Follow-up visit [] Physician referral [] Code/Alert [x] Routine visit [] Staff referral [] Actively dying [x] Patient sleeping [] Family support [] [] Out of room [] Palliative care [] [] Receiving care in room [] Pre-surgical visit [] Trauma [] Long length of stay [] ICU visit [] Other: Relational/Emotional Strength [] Patient feels connected with others/family/visitors/staff [] Distress [] Loneliness/isolation [] Abandonment Spirituality of Patient [] Person of Unique [] Attends Pentecostalism of their Unique [] Believes in Prayer [] Reads Bible or Scientology materials [] There are Spiritual issues to be addressed [employer] Interventions [x] Prayer [] Active listening [] Non-anxious presence [] Spiritual/emotional support [] Crisis/trauma care [] Spiritual counseling [] Bereavement support [] Provided bereavement packet [] Provided Bible/devotional materials [] Provided toy/stuffed animal, coloring book to patient or family member [] Provided Communion [] Anointing/[place] [] Salvation [] Completed spiritual assessment [] Other: Impact on Illness or Injury [] Angry [] Fearful [] Anxious [] Often cries [] Exhaustion [] Unable to work [] Unable to attend mosque [] Unable to walk/stand [] Unable to read [] Unable to drive [] Unable to eat/drink [] Unable to sleep [] Unable to be with family [] Patient intubated [] Other: Summary Time spent with patient
--- NOTE | 2024-03-09 11:25 | P.PN_ITS ---
Vitals/I&O/Wt Last Vital Signs Temp 97.9 F 03/09/24 07:35 Pulse 87 03/09/24 08:25 Resp 20 H 03/09/24 08:25 BP 111/75 03/09/24 07:35 Pulse Ox 95 03/09/24 08:25 O2 Del Method Nasal Cannula 03/09/24 08:25 O2 Flow Rate 6 03/09/24 08:25 FiO2 45 03/09/24 03:00 03/08/24 03/09/24 03/09/24 22:59 06:59 14:59 Intake Total 358.5106 / 1108.5106 360 / 360 Output Total 650 / 650 375 / 1025 Balance -291.4894 / 458.5106 -375 / 83.5106 360 / 360 Weight last 48 hrs Weight 60.509 kg Weight 59.278 kg Weight 58.546 kg Weight 59.874 kg Physical Exam 2 Const: COMMON NORMALS: patient oriented x3 and alert GENERAL APPEARANCE: c ooperative ORIENTATION/CONSCIOUSNESS: Yes awake HENMT: COMMON NORMALS: oropharynx normal Neck/C-Spine: COMMON NORMALS: no JVD Resp: COMMON NORMALS: normal respiratory effort and clear to auscultation bilaterally AUSCULTATION: clear to auscultation bilaterally Cardio: COMMON NORMALS: no JVD, regular rhythm, S1 normal heart sound present, S2 normal heart sound present and No murmurs present (Cardio) RHYTHM: regular rhythm HEART SOUNDS: S1 normal heart sound present and S2 normal heart sound present GI: COMMON NORMALS: Normal to inspection, nondistended, normoactive bowel sounds present, Soft to palpation and non-tender PALPATION: Yes Soft to palpation Extremity: COMMON NORMALS: no joint enlargement and no pedal edema Neuro: COMMON NORMALS: patient oriented x3 and moves all extremities S ENSORIUM/ORIENTATION: Yes alert Skin: COMMON NORMALS: no rashes or lesions noted GENERAL SKIN EXAM: no rashes or lesions noted Urinary Catheter Management: Dee: Cath Placed During This Visit: yes Reason for Continuing Indwelling Catheter: Accurate Measurement of Urinary Output in Critically Ill Patients Urinary Catheter Date of Insertion: 03/07/24 Urinary Catheter Time of Insertion: 20:55 Data 03/09/24 04:59 03/09/24 04:59 Micro: Microbiology 03/08/24 00:40 Gram Stain - Final Sputum - Expectorated Sputum 03/07/24 21:10 Bacterial Antigens - Final Urine Kidney 03/07/24 21:10 Legionella Urinary Antigen - Final Unknown Source A&P Assessment and plan (1) Acute and chronic respiratory failure with hypercapnia: (2) Acute exacerbation of chronic obstructive airways disease: (3) Metabolic alkalosis with respiratory acidosis: Plan ELISA: Reviewed creatinine, BUN, bicarb, potassium. Noted acute kidney injury, discussed with her, discussed with nursing, catalytic case operator. Discharge deferred for now. Stop acetazolamide. She appears to have some dehydration, having dry mouth/mucous membranes, loss of turgor. Will give a dose of 5% albumin. Replace hypokalemia. Recheck renal function. Check magnesium. Acute on chronic respiratory failure with hypercapnia: COPD exacerbation. Continues with IV steroid for now. Noted leukocytosis up to 16.6 on review of CBC. With IV steroid, monitor for risk of hypertension, hyperglycemia, gastritis. Increase PPI to twice daily as she is having some ulcer pain. Monitor for risk of encephalopathy. Last discharge patient was advised to hepatology which she is still awaiting from her insurance company for approval. Currently found to have a normal pH with pCO2 of more than 102, found to have bicarb of more than 55 on BMP. Concerns for respiratory acidosis with metabolic alkalosis. Maintain oxygen supplementation keeping saturation 88% during the day. BiPAP nightly. Stop Diamox. Monitor BMP daily to monitor for contraction alkalosis. Fluid restriction up to 1500 cc. Dee catheterization. Nebulization with ipratropium, Xopenex every 6 hours, Pulmicort twice daily Solu-Medrol 40 mg Q6 hourly. Negative Respiratory viral panel, urine Legionella, bacterial antigen. Follow- up sputum culture For now empirically start patient on antibiotics for community-acquired pneumonia with IV ceftriaxone and oral azithromycin. Superadded bacterial infection less likely. Keep antibiotics for now given leukocytosis. Reassess. CODE STATUS: Daughter will be the DPOA. Patient is okay with chest compressions and mechanical ventilation. Full code Start on cardiac diet Protonix for PUD prophylaxis Heparin 5000 SQ q12h for DVT PPx Attestations 2 Medical Necessity Statement*: Continue admission for assessment and management of ELISA, COPD exacerbation. and High MDM includes amount and/or complexity of data reviewed/ordered [ resulted lab(s)/test(s), ordered lab(s)/test(s) and other healthcare professional discussion] and described risk of complication, morbidity or mortality of management as documented Diagnoses Acute and chronic respiratory failure with hypercapnia J96.22 Acute exacerbation of chronic obstructive airways disease J44.1 Metabolic alkalosis with respiratory acidosis E87.4
[2024-03-09] MEDS: albumin 12.5 GM/250 ML VIAL IV (11:51)
[2024-03-09] MEDS: potassium chloride ER 20 mEq Tablet PO (11:53)
[2024-03-09] MEDS: acetaminophen 325 mg Tablet 650 MG PO (15:53)
[2024-03-09] MEDS: cefTRIAXone 1,000 mg SDV 1000 MG IVP (17:01)
[2024-03-09] MEDS: pantoprazole DR 40 mg Tablet PO (17:01)
[2024-03-10] VITALS (22 sets, daily range): BP systolic 95–125; BP diastolic 64–83; PULSE 69–105; RESP 14–20; TEMP 36.4–36.8; O2SAT 84–98
--- NOTE | 2024-03-10 02:01 | PC.NURSE ---
shift note. o2 dropped down to 53% when [place] [facility] [address], recovery very slow, bipap placed and 02 sat bounced up to 94 fast.
[2024-03-10] MEDS: levalbuterol 0.63 mg/3 mL Neb INHALATION ×4 (03:21→20:02)
[2024-03-10] MEDS: ipratropium 0.5 mg/2.5 mL Neb INHALATION ×4 (03:21→20:02)
[2024-03-10] MEDS: methylPREDNISolone sod succ 40 mg/mL INJ IVP ×2 (03:29→08:14)
[2024-03-10] MEDS: buPROPion XL (24 HR) 150 mg Tablet PO (05:27)
[2024-03-10 06:02] LABS: Basophils % 0.1 %; Lymphocytes # 1.2 10^3/uL (0.8-4.8); Lymphocytes % 6.8 %; Mean Corpuscular HGB Conc 31.5 g/dL (30-55); Mean Corpuscular Hemoglobin 29.7 pg (27-33); Mean Corpuscular Volume 94.3 fl (85-98); Mean Platelet Volume 12.7 fL (7.4-10.4); Monocytes # 0.4 10^3/uL (0.2-0.9); Monocytes % 2.1 %; Neutrophils # 16.49 10^3/uL (1.8-7.7); Neutrophils % 89.9 %; Nucleated Red Blood Cells % 0 %; Platelet Count 165 10^3/cmm (157-399); Red Cell Distribution Width 13.4 % (12.1-15.1); White Blood Count 18.34 10^3/uL (3.29-11.43)
[2024-03-10 06:17] LABS: Blood Urea Nitrogen 40 mg/dL (6-20); Calcium 8.8 mg/dL (8.5-10.5); Carbon Dioxide 38 mmol/L (22-29); Chloride 87 mmol/L (98-107); Glomerular Filtration Rate 42.5 mL/min (90-130); Glucose 151 mg/dL (65-115); Magnesium 2.3 mg/dL (1.7-2.3); Osmolality Calculated 295 mOsm/kg (285-295); Sodium 136 mmol/L (136-145)
[2024-03-10] MEDS: pantoprazole DR 40 mg Tablet PO ×2 (08:14→16:38)
[2024-03-10] MEDS: azithromycin 250 mg Tablet 500 MG PO (08:14)
[2024-03-10] MEDS: heparin 5,000 unit/mL INJ 1 mL 5000 UNIT SUBCUT (08:14)
[2024-03-10] MEDS: budesonide 0.5 mg/2 mL Neb INHALATION ×2 (08:43→20:02)
[2024-03-10] MEDS: potassium chloride ER 20 mEq Tablet PO (09:13)
[2024-03-10] MEDS: potassium chloride ER 20 mEq Tablet 40 MEQ PO (13:37)
[2024-03-10] MEDS: methylPREDNISolone sod succ 40 mg/mL INJ 60 MG IVP ×3 (13:38→23:07)
--- NOTE | 2024-03-10 15:44 | P.PN_ITS ---
Subjective 2 Subjective: She is feeling worse today. She is more dyspneic. Having pain on inspiration on left side of her chest, sometimes pain just at rest. Vitals/I&O/Wt Last Vital Signs Temp 98.2 F 03/10/24 15:08 Pulse 91 03/10/24 15:24 Resp 18 03/10/24 15:15 BP 109/73 03/10/24 15:08 Pulse Ox 93 03/10/24 15:15 O2 Del Method Nasal Cannula 03/10/24 15:15 O2 Flow Rate 6 03/10/24 15:15 FiO2 45 03/10/24 06:00 03/10/24 03/10/24 03/10/24 06:59 14:59 22:59 Intake Total 240 / 240 Output Total 250 / 1600 Balance -250 / -390 240 / 240 Weight last 48 hrs Weight 63.321 kg Weight 60.509 kg Physical Exam 2 Const: COMMON NORMALS: patient oriented x3 and alert GENERAL APPEARANCE: c ooperative ORIENTATION/CONSCIOUSNESS: Yes awake HENMT: COMMON NORMALS: oropharynx normal Neck/C-Spine: COMMON NORMALS: no JVD Resp: AUSCULTATION: rhonchi, wheezes and diminished lung sounds Cardio: COMMON NORMALS: no JVD, regular rhythm, S1 normal heart sound present, S2 normal heart sound present and No murmurs present (Cardio) RHYTHM: regular rhythm HEART SOUNDS: S1 normal heart sound present and S2 normal heart sound present GI: COMMON NORMALS: Normal to inspection, nondistended, normoactive bowel sounds present, Soft to palpation and non-tender PALPATION: Yes Soft to palpation Extremity: COMMON NORMALS: no joint enlargement and no pedal edema Neuro: COMMON NORMALS: patient oriented x3 and moves all extremities S ENSORIUM/ORIENTATION: Yes alert Skin: COMMON NORMALS: no rashes or lesions noted GENERAL SKIN EXAM: no rashes or lesions noted Urinary Catheter Management: Dee: Cath Placed During This Visit: yes Reason for Continuing Indwelling Catheter: Acute Urinary Retention or Obstruction Urinary Catheter Date of Insertion: 03/07/24 Urinary Catheter Time of Insertion: 20:55 Data 03/10/24 04:22 03/10/24 04:22 Micro: Microbiology 03/08/24 00:40 Gram Stain - Final Sputum - Expectorated Sputum Sputum Culture - Preliminary A&P Assessment and plan (1) Acute and chronic respiratory failure with hypercapnia: (2) Acute exacerbation of chronic obstructive airways disease: (3) Metabolic alkalosis with respiratory acidosis: Plan COPD exacerbation: She is feeling worse today. She is more dyspneic. Having pain on inspiration on left side of her chest, sometimes pain just at rest. Noted severe wheezing, rhonchi, diminished air entry on exam. On 6 L nasal cannula oxygen, although states that she is at baseline on 6 L. With more dyspnea, worsening wheezing, rhonchi, diminished air entry, discussed with her increasing IV steroid dose. Increase to 60 mg every 6 hours, monitor for risk of hyperglycemia, hypertension, encephalopathy, gastritis. Discussed with respite therapy. Discussed with nursing, case loader operator. Discharge deferred for now. Continue ceftriaxone, DuoNebs. Flutter valve. Reviewed CBC, noted some worsening leukocytosis up to 18.3. Possibly demargination secondary to steroid, but in case of lack of improvement, fever, or other concerning developments we will change antibiotic. ELISA: Reviewed BUN, creatinine, potassium. BUN 40, creatinine with improvement down to 1.3. Potassium low today 3, requested supplementation. Recheck renal function. Reviewed magnesium. Acute on chronic respiratory failure with hypercapnia: COPD exacerbation. Treat as above. Maintain oxygen supplementation keeping saturation 88% during the day. BiPAP nightly. Fluid restriction up to 1500 cc. Dee catheterization. Nebulization with ipratropium, Xopenex every 6 hours, Pulmicort twice daily Solu-Medrol 40 mg Q6 hourly. Negative Respiratory viral panel, urine Legionella, bacterial antigen. Follow- up sputum culture For now empirically on antibiotics for community-acquired pneumonia with IV ceftriaxone and oral azithromycin. Superadded bacterial infection less likely. Keep antibiotics for now given leukocytosis. Reassess. CODE STATUS: Daughter will be the DPOA. Patient is okay with chest compressions and mechanical ventilation. Full code Start on cardiac diet Protonix for PUD prophylaxis Heparin 5000 SQ q12h for DVT PPx Attestations 2 Medical Necessity Statement*: Continue admission for assessment and management of COPD exacerbation. and High MDM includes amount and/or complexity of data reviewed/ordered [ resulted lab(s)/test(s) and other healthcare professional discussion] and described risk of complication, morbidity or mortality of management as documented Diagnoses Acute and chronic respiratory failure with hypercapnia J96.22 Acute exacerbation of chronic obstructive airways disease J44.1 Metabolic alkalosis with respiratory acidosis E87.4
--- NOTE | 2024-03-10 15:50 | XRR_ITS ---
PROCEDURE INFORMATION: Exam: XR Chest Exam date and time: 03/10/2024 3:55 PM Age: 53 years old Clinical indication: Dyspnea; Additional info: Dyspnea, L side chest pain TECHNIQUE: Imaging protocol: Radiologic exam of the chest. Views: 1 view. COMPARISON: CR (CHEST, ) 03/07/2024 4:54 PM FINDINGS: Lungs: There is mild reticulonodular opacity in the lower lung periphery bilaterally, similar to the findings on 03/07/2024. Similar but less conspicuous findings are seen on chest radiograph 07/18/2023. No focal consolidation. Pleural spaces: There is no pleural effusion or pneumothorax. Heart/Mediastinum: Cardiomediastinal contours are unremarkable. Bones/joints: Bones are unremarkable. XR/XR chest 1V portable [id number] IMPRESSION: Mild bilateral peripheral lower lung opacities are subacute or chronic. Differential diagnosis includes infection and interstitial lung disease.
--- NOTE | 2024-03-10 16:04 | ECG_ITS ---
[facility] Test Date: 2024-03-10 Pat Name: Estelle Pascual Department: Room: 253 Gender: Female Finisher Card Tender: : 1970 Requested By: Saleem Manley Order Number: [id number] Tawanda MD: Taya Villalta M.D. Measurements Intervals [place] Rate: 94 P: 76 MS: 150 QRS: 67 QRSD: 94 T: 72 QT: 285 QTc: 358 Interpretive Statements SINUS RHYTHM Compared to ECG 03/07/2024 22:22:02 T-wave abnormality no longer present Possible ischemia no longer present Electronically Signed On 03-12-2024 21:58:29 PARTRIDGE FARMER by Taya Villalta M.D. [id number]
[2024-03-10] MEDS: sucralfate 1 gm Tablet PO ×2 (16:37→20:27)
[2024-03-10] MEDS: cefTRIAXone 1,000 mg SDV 1000 MG IVP (16:37)
[2024-03-10 17:33] LABS: Troponin(5th) Baseline 12 ng/L (0-10)
--- NOTE | 2024-03-10 18:12 | ECG_ITS ---
[facility]24[facility]10 Pat Name: Estelle Pascual Department: Room: 253 Gender: Female Bookkeeping Assistant: : 1970 Requested By: Saleem Manley Order Number: [id number] Reading MD: ROMEO PEREZ Measurements Intervals [place] Rate: 92 P: 75 ME: 159 QRS: 56 QRSD: 90 T: 83 QT: 252 QTc: 312 Interpretive Statements SINUS RHYTHM NONSPECIFIC T-WAVE ABNORMALITY Compared to ECG 03/10/2024 16:04:01 T-wave abnormality now present Electronically Signed On 03-13-2024 00:36:09 TUGBOAT CAPTAIN by ROMEO PEREZ [id number]
[2024-03-10 19:18] LABS: Troponin 5 2HR 12.06 ng/L (0-10); Troponin 5 2HR Delta 0.06 ABS# (0-10)
--- NOTE | 2024-03-10 21:51 | ECG_ITS ---
[facility] Test Date: 2024-03-10 Pat Name: Estelle Pascual Department: Room: 253 Gender: Female Airfield Manager: : 1970 Requested By: Saleem Manley Order Number: [id number] Reading MD: ROMEO PEREZ Measurements Intervals [place] Rate: 103 P: 87 NV: 166 QRS: 87 QRSD: 89 T: 88 QT: 259 QTc: 339 Interpretive Statements SINUS TACHYCARDIA NONSPECIFIC T-WAVE ABNORMALITY ABNORMAL RHYTHM ECG Compared to ECG 03/10/2024 18:12:08 Sinus rhythm no longer present T-wave abnormality still present Electronically Signed On 03-13-2024 00:36:08 WELDER TECH by ROMEO PEREZ [id number]
[2024-03-10 23:07] LABS: Troponin 5 6HR 11.43 ng/L (0-10)
[2024-03-10 23:10] LABS: Troponin 5 6HR Delta -0.57 ng/L (0-12)
[2024-03-11] VITALS (16 sets, daily range): BP systolic 107–133; BP diastolic 67–79; PULSE 74–91; RESP 14–20; TEMP 36.4–36.9; O2SAT 90–99
[2024-03-11] MEDS: levalbuterol 0.63 mg/3 mL Neb INHALATION ×4 (03:23→20:32)
[2024-03-11] MEDS: ipratropium 0.5 mg/2.5 mL Neb INHALATION ×4 (03:23→20:32)
[2024-03-11 05:25] LABS: Basophils % 0.1 %; Hematocrit 31.9 % (36-47); Lymphocytes % 6.9 %; Mean Corpuscular HGB Conc 31.7 g/dL (30-55); Mean Corpuscular Hemoglobin 30.1 pg (27-33); Mean Corpuscular Volume 94.9 fl (85-98); Mean Platelet Volume 12.6 fL (7.4-10.4); Monocytes # 0.6 10^3/uL (0.2-0.9); Neutrophils % 86.9 %; Nucleated Red Blood Cells % 0 %; Platelet Count 157 10^3/cmm (157-399); Red Blood Count 3.36 10^6/uL (3.85-5.65); Red Cell Distribution Width 13.5 % (12.1-15.1); White Blood Count 14.84 10^3/uL (3.29-11.43)
[2024-03-11 05:49] LABS: Anion Gap 10.2 (5-19); Blood Urea Nitrogen 41 mg/dL (6-20); Calcium 8.5 mg/dL (8.5-10.5); Carbon Dioxide 34 mmol/L (22-29); Chloride 95 mmol/L (98-107); Glomerular Filtration Rate 42.5 mL/min (90-130); Glucose 245 mg/dL (65-115); Osmolality Calculated 300 mOsm/kg (285-295); Potassium 3.2 mmol/L (3.5-5.1); Sodium 136 mmol/L (136-145)
[2024-03-11] MEDS: sucralfate 1 gm Tablet PO ×4 (06:25→19:57)
[2024-03-11] MEDS: methylPREDNISolone sod succ 40 mg/mL INJ 60 MG IVP ×3 (06:25→17:26)
[2024-03-11] MEDS: buPROPion XL (24 HR) 150 mg Tablet PO (06:25)
[2024-03-11] MEDS: azithromycin 250 mg Tablet 500 MG PO (07:56)
[2024-03-11] MEDS: pantoprazole DR 40 mg Tablet PO ×2 (07:56→17:25)
[2024-03-11] MEDS: budesonide 0.5 mg/2 mL Neb INHALATION ×2 (08:57→20:32)
[2024-03-11] MEDS: potassium chloride ER 20 mEq Tablet 40 MEQ PO (09:52)
[2024-03-11] MEDS: acetaminophen 325 mg Tablet 650 MG PO (09:59)
[2024-03-11 11:28] LABS: Glucose Point of Care 254 mg/dL (70-110)
[2024-03-11] MEDS: cefTRIAXone 1,000 mg SDV 1000 MG IVP (17:25)
--- NOTE | 2024-03-11 18:50 | P.PN_ITS ---
Subjective 2 Subjective: Without improvement in breathing so far. Still coughing, wheezing. Vitals/I&O/Wt Last Vital Signs Temp 97.7 F 03/11/24 15:45 Pulse 85 03/11/24 15:45 Resp 17 03/11/24 15:45 BP 125/77 03/11/24 15:45 Pulse Ox 95 03/11/24 15:45 O2 Del Method Nasal Cannula 03/11/24 15:45 O2 Flow Rate 5 03/11/24 13:50 FiO2 45 03/11/24 03:24 03/11/24 03/11/24 03/11/24 06:59 14:59 22:59 Intake Total 720 / 720 680 / 1400 Output Total 100 / 1100 450 / 450 Balance -100 / -380 720 / 720 230 / 950 Weight last 48 hrs Weight 68.629 kg Weight 63.321 kg Physical Exam 2 Const: COMMON NORMALS: patient oriented x3 and alert GENERAL APPEARANCE: c ooperative ORIENTATION/CONSCIOUSNESS: Yes awake HENMT: COMMON NORMALS: oropharynx normal Neck/C-Spine: COMMON NORMALS: no JVD Resp: AUSCULTATION: rhonchi, wheezes and diminished lung sounds Cardio: COMMON NORMALS: no JVD, regular rhythm, S1 normal heart sound present, S2 normal heart sound present and No murmurs present (Cardio) RHYTHM: regular rhythm HEART SOUNDS: S1 normal heart sound present and S2 normal heart sound present GI: COMMON NORMALS: Normal to inspection, nondistended, normoactive bowel sounds present, Soft to palpation and non-tender PALPATION: Yes Soft to palpation Extremity: COMMON NORMALS: no joint enlargement and no pedal edema Neuro: COMMON NORMALS: patient oriented x3 and moves all extremities S ENSORIUM/ORIENTATION: Yes alert Skin: COMMON NORMALS: no rashes or lesions noted GENERAL SKIN EXAM: no rashes or lesions noted Urinary Catheter Management: Dee: Cath Placed During This Visit: yes Reason for Continuing Indwelling Catheter: Acute Urinary Retention or Obstruction Urinary Catheter Date of Insertion: 03/07/24 Urinary Catheter Time of Insertion: 20:55 Data 03/11/24 04:34 03/11/24 04:34 Micro: Microbiology 03/08/24 00:40 Gram Stain - Final Sputum - Expectorated Sputum Sputum Culture - Final 03/10/24 15:00 Occult Blood (FIT) - Final Stool Routine Collection A&P Assessment and plan (1) Acute and chronic respiratory failure with hypercapnia: (2) Acute exacerbation of chronic obstructive airways disease: (3) Metabolic alkalosis with respiratory acidosis: Plan COPD exacerbation: Severe exacerbation of COPD, persistent wheezing, diminished air entry, cough, dyspnea, secretions. Still unimproved. Continue increased dose Solu-Medrol 60 mg IV every 6 hours. Will not increase further due to already concern for GI bleed with positive Hemoccult, dark stools. Monitor for risk of further bleeding. Reassess blood counts. Continue PPI twice daily. Discussed with her we also added sucralfate as well. Continue breathing treatments. Continue antibiotic with ceftriaxone, azithromycin. Reviewed CBC, reviewed sputum culture. Few mixed upper respiratory vivienne. Discussed with nursing, patient case manager. Left side shoulder/arm pain, he reports occasional numbness of the hand, particularly when driving, this appears to be more chronic issue. We did obtain troponin EKG series yesterday which showed mild elevation. Discussed with her. EKG without sign of acute GA. She does states sometimes having symptoms at rest as well, no evidence of ischemia currently, but discussed with her may benefit from further follow-up assessment with stress test. Although this appears to be more likely musculoskeletal with radiculopathy in the reports compression in her neck. Should follow-up with PCP. Surgery likely would not be a good option given elevated risk with her lung disease. He agrees with this. ELISA: Reviewed BUN, creatinine, potassium. BUN 40, creatinine with improvement down to 1.3. Potassium low today 3, requested supplementation. Recheck renal function. Reviewed magnesium. Hypokalemia: Supplement.Repeat chemistry. Acute on chronic respiratory failure with hypercapnia: COPD exacerbation. Treat as above. Maintain oxygen supplementation keeping saturation 88% during the day. BiPAP nightly. Fluid restriction up to 1500 cc. Dee catheterization. Nebulization with ipratropium, Xopenex every 6 hours, Pulmicort twice daily Solu-Medrol 60 mg Q6 hourly. Negative Respiratory viral panel, urine Legionella, bacterial antigen. Follow- up sputum culture For now empirically on antibiotics for community-acquired pneumonia with IV ceftriaxone and oral azithromycin. Superadded bacterial infection less likely. Keep antibiotics for now given leukocytosis. Reassess. CODE STATUS: Daughter will be the DPOA. Patient is okay with chest compressions and mechanical ventilation. Full code Start on cardiac diet Protonix for PUD prophylaxis Heparin 5000 SQ q12h for DVT PPx Attestations 2 Medical Necessity Statement*: Continue admission for assessment and management of COPD exacerbation. and High MDM includes amount and/or complexity of data reviewed/ordered [ resulted lab(s)/test(s) and other healthcare professional discussion] and described risk of complication, morbidity or mortality of management as documented Diagnoses Acute and chronic respiratory failure with hypercapnia J96.22 Acute exacerbation of chronic obstructive airways disease J44.1 Metabolic alkalosis with respiratory acidosis E87.4
[2024-03-11 21:06] LABS: Glucose Point of Care 208 mg/dL (70-110)
[2024-03-12] VITALS (13 sets, daily range): BP systolic 122–141; BP diastolic 75–87; PULSE 64–93; RESP 16–22; TEMP 36.4–36.8; O2SAT 91–99
[2024-03-12] MEDS: methylPREDNISolone sod succ 40 mg/mL INJ 60 MG IVP ×2 (01:15→08:54)
--- NOTE | 2024-03-12 01:34 | ECG_ITS ---
[facility] Test Date: 2024-03-12 Pat Name: Estelle Pascual Department: Room: 253 Gender: Female Digital Manager: : 1970 Requested By: Narinder Guadarrama Order Number: [id number] Tawanda MD: Taya Villalta M.D. Measurements Intervals [place] Rate: 79 P: 84 [place]: 158 QRS: 86 QRSD: 89 T: 87 QT: 346 QTc: 397 Interpretive Statements SINUS RHYTHM Compared to ECG 03/10/2024 21:10:15 Sinus tachycardia no longer present T-wave abnormality no longer present Electronically Signed On 03-12-2024 21:58:31 ROUTE MANAGER by Taya Villalta M.D. [id number]
[2024-03-12] MEDS: morphine 4 mg/mL SDV 1 mL 2 MG IVP (02:17)
--- NOTE | 2024-03-12 02:32 | PC.NURSE ---
Patient began c/o chest pain. Another nurse obtained EKG and notified Dr. Guadarrama. Dr. Guadarrama ordered Morphine x1. Patient's VSS. Patient initially rated chest pain 7/10 and is now rating it 2/10.
[2024-03-12] MEDS: levalbuterol 0.63 mg/3 mL Neb INHALATION ×2 (03:03→07:43)
[2024-03-12] MEDS: ipratropium 0.5 mg/2.5 mL Neb INHALATION ×2 (03:03→07:41)
[2024-03-12 05:37] LABS: Basophils % 0.2 %; Hematocrit 32.8 % (36-47); Lymphocytes # 1.4 10^3/uL (0.8-4.8); Lymphocytes % 8.7 %; Mean Corpuscular HGB Conc 31.7 g/dL (30-55); Mean Corpuscular Hemoglobin 30.2 pg (27-33); Mean Corpuscular Volume 95.3 fl (85-98); Mean Platelet Volume 11.9 fL (7.4-10.4); Monocytes # 0.8 10^3/uL (0.2-0.9); Monocytes % 4.8 %; Neutrophils # 13.33 10^3/uL (1.8-7.7); Neutrophils % 82.8 %; Nucleated Red Blood Cells % 0 %; Platelet Count 177 10^3/cmm (157-399); Red Blood Count 3.44 10^6/uL (3.85-5.65); Red Cell Distribution Width 13.4 % (12.1-15.1); White Blood Count 16.12 10^3/uL (3.29-11.43)
[2024-03-12] MEDS: sucralfate 1 gm Tablet PO (05:54)
[2024-03-12] MEDS: buPROPion XL (24 HR) 150 mg Tablet PO (05:54)
[2024-03-12 06:02] LABS: Anion Gap 14.1 (5-19); Blood Urea Nitrogen 39 mg/dL (6-20); Calcium 8.6 mg/dL (8.5-10.5); Carbon Dioxide 32 mmol/L (22-29); Chloride 95 mmol/L (98-107); Creatinine Clr Calc Pharmacy 42.2468; Glomerular Filtration Rate 42.5 mL/min (90-130); Glucose 172 mg/dL (65-115); Osmolality Calculated 297 mOsm/kg (285-295); Potassium 4.1 mmol/L (3.5-5.1); Sodium 137 mmol/L (136-145)
[2024-03-12 06:34] LABS: Glucose Point of Care 201 mg/dL (70-110)
--- NOTE | 2024-03-12 07:27 | PC.NURSE ---
IV Solu-medrol will be administered late due to attempting to get IV access on patient. So far, 2 nurses have attempted.
[2024-03-12] MEDS: budesonide 0.5 mg/2 mL Neb INHALATION (07:41)
[2024-03-12] MEDS: pantoprazole DR 40 mg Tablet PO (08:54)
[2024-03-12] MEDS: azithromycin 250 mg Tablet 500 MG PO (08:54)
--- NOTE | 2024-03-12 09:36 | PM.DCS ---
Discharge Providers Date of Admission: 03/07/24 17:11 Date of Discharge: March 12, 2024 Attending Provider at Admission: Haider Velasco MD Attending Provider at Discharge: Saleem Manley Primary Care Provider: Reena López MD Diagnoses at Discharge Discharge Diagnosis (1) Acute and chronic respiratory failure with hypercapnia: Status: Acute (2) Acute exacerbation of chronic obstructive airways disease: Status: Acute (3) Metabolic alkalosis with respiratory acidosis: Status: Acute Reason for Visit Reason for Visit: O2 is high Hospital Course Hospital Course Pleasant 53-year-old lady with history of COPD, chronic respiratory failure, normally on 6 L oxygen at home, presented with worsened respiratory failure, and a presentation also hallucinations over the preceding 3 days. On presentation with contracture alkalosis, furosemide was transiently held and she received acetazolamide. However, with development of ELISA on CKD, creatinine increased up to 1.6, dehydration, diuretics discontinued entirely, received albumin. Renal function has shown improvement. On discharge we discussed with her to continue Lasix only on a as needed basis. During hospitalization with acute on chronic respiratory failure with COPD exacerbation, possible pneumonia, with wheezing, decreased air entry, cough, rhonchi, she was treated with IV steroid, similar dosage to be increased due to poor initial response, antibiotics with ceftriaxone, azithromycin, breathing treatments. During hospitalization also found to have dark stool which tested positive for occult blood. She was started on PPI twice daily, sucralfate. Her respiratory failure has improved, she is breathing better today, wheezing has resolved. She is returning toward her baseline. She is discharging home with a steroid taper, to complete additional brief course of antibiotics,, and is to continue nebulizations of which she states she has a good supply at home. Please reassess her anemia, positive Hemoccult with suspected PUD. She continues on Protonix, please arrange for endoscopic evaluation once her respiratory function is reliably back to baseline. Physical Exam Const: COMMON NORMALS: patient oriented x3 and alert GENERAL APPEARANCE: cooperative ORIENTATION/CONSCIOUSNESS: Yes awake HENMT: COMMON NORMALS: oropharynx normal Neck/C-Spine: COMMON NORMALS: no JVD Resp: COMMON NORMALS: normal respiratory effort and clear to auscultation bilaterally AUSCULTATION: clear to auscultation bilaterally Cardio: COMMON NORMALS: no JVD, regular rhythm, S1 normal heart sound present, S2 normal heart sound present and No murmurs present (Cardio) RHYTHM: regular rhythm HEART SOUNDS: S1 normal heart sound present and S2 normal heart sound present GI: COMMON NORMALS: Normal to inspection, nondistended, normoactive bowel sounds present, Soft to palpation and non-tender PALPATION: Yes Soft to palpation Extremity: COMMON NORMALS: no joint enlargement and no pedal edema Neuro: COMMON NORMALS: patient oriented x3 and moves all extremities SENSORIUM/ORIENTATION: Yes alert Skin: COMMON NORMALS: no rashes or lesions noted GENERAL SKIN EXAM: no rashes or lesions noted Urinary Catheter Management: Dee: Cath Placed During This Visit: yes Reason for Continuing Indwelling Catheter: Accurate Measurement of Urinary Output in Critically Ill Patients Urinary Catheter Date of Insertion: 03/07/24 Urinary Catheter Time of Insertion: 20:55 Discharge Data Studies Completed and Pending Completed Studies During Hospitalization Category Date Time Status CXRP [XR chest 1V portable [id number]] Routine Exams 03/10/24 15:50 Completed XR chest 1V portable [id number] Stat Exams 03/07/24 16:30 Completed Radiology Impressions Chest X-Ray 03/10/24 15:50 IMPRESSION: Mild bilateral peripheral lower lung opacities are subacute or chronic. Differential diagnosis includes infection and interstitial lung disease. Laboratory Results WBC 16.12 10^3/uL (3.29-11.43) H 03/12/24 04:48 RBC 3.44 10^6/uL (3.85-5.65) L 03/12/24 04:48 Hgb 10.40 g/dL (11.27-16.99) L 03/12/24 04:48 Hct 32.8 % (36-47) L 03/12/24 04:48 MCV 95.3 fl (85-98) 03/12/24 04:48 MCH 30.2 pg (27-33) 03/12/24 04:48 MCHC 31.7 g/dL (30-55) 03/12/24 04:48 RDW 13.4 % (12.1-15.1) 03/12/24 04:48 Plt Count 177 10^3/cmm (157-399) 03/12/24 04:48 MPV 11.9 fL (7.4-10.4) H 03/12/24 04:48 Neut % (Auto) 82.8 % 03/12/24 04:48 Lymph % (Auto) 8.7 % 03/12/24 04:48 [place] % (Auto) 4.8 % 03/12/24 04:48 Eos % (Auto) 0.0 % 03/12/24 04:48 Baso % (Auto) 0.2 % 03/12/24 04:48 Neut # (Auto) 13.33 10^3/uL (1.8-7.7) H 03/12/24 04:48 Lymph # (Auto) 1.4 10^3/uL (0.8-4.8) 03/12/24 04:48 [place] # (Auto) 0.8 10^3/uL (0.2-0.9) 03/12/24 04:48 Eos # (Auto) 0.0 10^3/uL (0.0-0.8) 03/12/24 04:48 Baso # (Auto) 0.0 10^3/uL (0.0-0.1) 03/12/24 04:48 Nucleated RBC % (auto) 0 % 03/12/24 04:48 Nucleated RBCs # 0.0 /100WBC 03/12/24 04:48 D-Dimer 0.47 ug/mLFEU (0-0.59) 03/07/24 17:35 Specimen Type Arterial 03/08/24 10:11 Sample Site Radial, left 03/08/24 10:11 ABG pH 7.49 (7.35-7.45) H 03/08/24 10:11 ABG pCO2 71.5 mmHg (35-45) H* 03/08/24 10:11 ABG pO2 65.5 mmHg (80.0-100.0) L 03/08/24 10:11 ABG PO2/FiO2 Ratio 145 03/08/24 10:11 ABG HCO3 53.8 mmol/L (22-26) H 03/08/24 10:11 ABG O2 Saturation 93.9 03/08/24 10:11 ABG Base Excess 26.1 mmol/L (-2.0-2.0) H 03/08/24 10:11 [place] Test Pos 03/08/24 10:11 A-a O2 Gradient 22.0 mmHg (5-10) H 03/08/24 10:11 Hematocrit 35.5 % (37-47) L 03/08/24 10:11 Hgb O2 Saturation 92.4 % (95-100) L 03/08/24 10:11 Carboxyhemoglobin 1.3 %THgb (0.4-20.1) 03/08/24 10:11 Methemoglobin 0.3 % (0.4-1.5) L 03/08/24 10:11 Total Hemoglobin 11.6 g/dL (12-16) L 03/08/24 10:11 Sodium 134.0 mmol/L (131-143) 03/08/24 10:11 Potassium 3.1 mmol/L (3.5-5.0) L 03/08/24 10:11 Glucose 169.0 mg/dL (70-115) H 03/08/24 10:11 Ionized Calcium 1.2 mmol/L (1.1-1.4) 03/08/24 10:11 O2 Delivery Device Bipap 03/08/24 10:11 O2 Liters/Min 6.0 % 03/07/24 22:16 FiO2 45.0 % 03/08/24 10:11 Correctional Officer Chief ID Cak 03/08/24 10:11 Sodium 137 mmol/L (136-145) 03/12/24 04:48 Potassium 4.1 mmol/L (3.5-5.1) 03/12/24 04:48 Chloride 95 mmol/L (98-107) L 03/12/24 04:48 Carbon Dioxide 32 mmol/L (22-29) H 03/12/24 04:48 Anion Gap 14.1 (5-19) 03/12/24 04:48 BUN 39 mg/dL (6-20) H 03/12/24 04:48 Creatinine 1.3 mg/dL (0.5-0.9) H 03/12/24 04:48 GFR Calculation 42.5 mL/min (90-130) L 03/12/24 04:48 Glucose 172 mg/dL (65-115) H 03/12/24 04:48 POC Glucose 201 mg/dL (70-110) H 03/12/24 06:24 Estimat Average Glucose 111 03/08/24 02:46 Hemoglobin A1c 5.5 % (4.0-6.0) 03/08/24 02:46 Calculated Osmolality 297 mOsm/kg (285-295) H 03/12/24 04:48 Calcium 8.6 mg/dL (8.5-10.5) 03/12/24 04:48 Phosphorus 2.4 mg/dL (2.5-4.5) L 03/08/24 02:46 Magnesium 2.3 mg/dL (1.7-2.3) 03/10/24 04:22 Total Bilirubin 0.2 mg/dL (0.15-1.2) 03/09/24 04:59 AST 10 U/L (0-32) 03/09/24 04:59 ALT 7 U/L (0-33) 03/09/24 04:59 Alkaline Phosphatase 72 U/L (35-105) 03/09/24 04:59 Troponin T Baseline 12 ng/L (0-10) H 03/10/24 16:45 Troponin T 120 Minute 12.06 ng/L (0-10) H 03/10/24 18:50 Delta Troponin T 0.06 ABS# (0-10) 03/10/24 18:50 Troponin T Hi Sens 6Hr 11.43 ng/L (0-10) H 03/10/24 22:34 Troponin T Hi Sens 6Hr Delta -0.57 ng/L (0-12) L 03/10/24 22:34 Total Protein 6.2 g/dL (6.6-8.7) L 03/09/24 04:59 Albumin 4.1 g/dL (3.5-5.2) 03/09/24 04:59 Globulin 2.1 g/dL (1.3-4.6) 03/09/24 04:59 Procalcitonin 0.10 ng/mL (0-0.5) 03/08/24 02:46 TSH 1.37 uIU/mL (0.27-4.20) 03/07/24 17:35 Urine Color Yellow (Yellow) 03/07/24 21:10 Urine Appearance Clear (CLEAR) 03/07/24 21:10 Urine pH 8.5 (5-7) A 03/07/24 21:10 Ur Specific [place] 1.009 (1.005-1.030) 03/07/24 21:10 Urine Protein Negative (Negative) 03/07/24 21:10 Urine Glucose (UA) Negative (Normal) 03/07/24 21:10 Urine Ketones Negative (Negative) 03/07/24 21:10 Urine Blood Negative (Negative) 03/07/24 21:10 Urine Nitrate Negative (Negative) 03/07/24 21:10 Urine Bilirubin Negative (Negative) 03/07/24 21:10 Urine Urobilinogen 0.2 mg/dL (Negative) 03/07/24 21:10 Ur Leukocyte Esterase Negative (Negative) 03/07/24 21:10 Urine RBC 0-2 /hpf (0-2) 03/07/24 21:10 Urine WBC 0-5 /hpf (0-5) 03/07/24 21:10 Ur Squamous Epith Cells 0-5 /hpf (0-5) 03/07/24 21:10 Amorphous Sediment Not Reportable 03/07/24 21:10 Urine Bacteria None seen /hpf (NONE) 03/07/24 21:10 Hyaline Casts 2.46 /lpf 03/07/24 21:10 Adenovirus (PCR) Not detected (NOT DETECT) 03/07/24 21:12 C. pneumoniae DNA (PCR) Not detected (NOT DETECT) 03/07/24 21:12 Coronavirus 229E (PCR) Not detected (NOT DETECT) 03/07/24 21:12 Human Metapneumovir PCR Not detected (NOT DETECT) 03/07/24 21:12 Influenza A (H1) PCR Not detected (NOT DETECT) 03/07/24 21:12 Influ A (H1/09) PCR Not detected (NOT DETECT) 03/07/24 21:12 Influenza A (H3) PCR Not detected (NOT DETECT) 03/07/24 21:12 Influenza Type A (PCR) Not detected (NOT DETECT) 03/07/24 21:12 Influenza Type B (PCR) Not detected (NOT DETECT) 03/07/24 21:12 M. pneumoniae (PCR) Not detected (NOT DETECT) 03/07/24 21:12 Parainfluenza 1 (PCR) Not detected (NOT DETECT) 03/07/24 21:12 Parainfluenza 2 (PCR) Not detected (NOT DETECT) 03/07/24 21:12 Parainfluenza 3 (PCR) Not detected (NOT DETECT) 03/07/24 21:12 Parainfluenza 4 (PCR) Not detected (NOT DETECT) 03/07/24 21:12 RSV Type A (PCR) Not detected (NOT DETECT) 03/07/24 21:12 RSV Type B (PCR) Not detected (NOT DETECT) 03/07/24 21:12 Entero/Rhino (PCR) Not detected (NOT DETECT) 03/07/24 21:12 SARS-CoV-2 (PCR) Not detected (NOT DETECT) 03/07/24 21:12 Vitals Last Vital Signs Temp 97.8 F 03/12/24 08:00 Pulse 76 03/12/24 08:00 Resp 18 03/12/24 08:00 BP 136/87 03/12/24 08:00 Pulse Ox 99 03/12/24 08:00 O2 Del Method Nasal Cannula 03/12/24 08:00 O2 Flow Rate 6 03/12/24 07:43 FiO2 45 03/12/24 03:05 Discharge Plan Discharge Patient Disposition: Home Condition: Stable Prescriptions: New azithromycin 250 mg Tablet 500 mg PO DAILY Qty: 2 0RF sucralfate 1 gram Tablet 1 g PO AC&BEDTIME Qty: 90 0RF pantoprazole 40 mg Tablet,Delayed Release (Dr/Ec) 40 mg PO BID Qty: 84 0RF prednisone 20 mg tablet 20 mg PO DAILY Qty: 20 0RF Rx Instructions: 3 tab daily for 3 days, then 2 tab for 3 days, then 1 tab for 3 days, then 1/2 tab for 4 days. Continued (DME) oxygen and concentrator See Rx Instructions .Route .MEDSUPPLY Qty: 1 0RF Rx Instructions: use 2L O2 via NC with exercise (DME) Portable oxygen concentrator See Rx Instructions .Route .MEDSUPPLY Qty: 1 0RF Rx Instructions: As directed (DME) Inspire Portable oxygen concentrator See Rx Instructions .Route .MEDSUPPLY Qty: 1 0RF Rx Instructions: Rate 4L O2 (DME) Portable Oxygen Concentrator 2-4L/NC See Rx Instructions .Route .MEDSUPPLY Qty: 1 0RF Rx Instructions: Continuous oxygen at 2-4L/NC. (DME) Portable Oxygen Concentrator 2-4L/NC 0 .Route .MEDSUPPLY ipratropium-albuterol 0.5 mg-3 mg(2.5 mg base)/3 mL solution for nebulization 3 ml inhalation Q8H Qty: 90 0RF formoterol fumarate [Perforomist] 20 mcg/2 mL solution for nebulization 2 ml inhalation BID Qty: 120 0RF albuterol sulfate [Ventolin HFA] 90 mcg/actuation HFA aerosol inhaler 2 puff inhalation QID PRN (Reason: Shortness Of Breath) Qty: 8.5 1RF bupropion HCl 150 mg tablet extended release 24 hr 150 mg PO QAM Qty: 30 3RF pantoprazole 40 mg tablet,delayed release (DR/EC) 40 mg PO DAILY Qty: 30 3RF tiotropium bromide [Spiriva with HandiHaler] 18 mcg capsule, w/inhalation device 1 cap inhalation DAILY Qty: 60 3RF Rx Instructions: puncture 1 cap using device; one dose = 2 inhalations albuterol sulfate 2.5 mg /3 mL (0.083 %) solution for nebulization 2.5 mg inhalation QID PRN (Reason: Shortness Of Breath Or Wheezing) polyethylene glycol 3350 17 gram/dose powder 17 g PO BID PRN (Reason: Constipation) sennosides [Senna Lax] 8.6 mg Tablet 8.6 mg PO BID PRN (Reason: Constipation) ferrous gluconate 324 mg (37.5 mg iron) tablet 37.5 mg PO BIDWM Changed furosemide 40 mg tablet 40 mg PO DAILY@0800 PRN (Reason: Edema) Qty: 30 3RF Discharge Orders: Discharge Order (Routine); Ordered 03/12/24 Ordered By: Saleem Manley Referrals: Reena López MD [Primary Care Provider] - 03/20/24 11:00 am () Discharge Diet: Cardiac Patient Instructions: Sucralfate (By mouth) (Carafate), Prednisone (By mouth), Azithromycin (By mouth), Cefdinir (By mouth), Pantoprazole (By mouth) (Protonix), Potassium Content of Foods List (GEN), Opioid Safety Activity Restrictions/Additional Instructions: Complete steroid taper, antibiotic course. Follow-up with your primary doctor for reassessment of recovery from COPD exacerbation, possible pneumonia. I have a primary doctor reassess your kidney function to confirm recovery from acute kidney injury. You needed potassium supplementation while in the hospital. Please include potassium rich foods in your diet. Follow-up with your primary doctor for reassessment of peptic ulcer disease, arrangements for endoscopic evaluation once you improve from COPD exacerbation and pneumonia. As well as follow-up on occult positive (small amount of) blood in your stool and anemia. For now in the meantime you are started on Protonix and sucralfate to help reduce inflammation in your stomach. Avoid any NSAIDs like ibuprofen, Aleve, or other medications. Steroids cause inflammation of stomach as discussed. Discharge Attestations Time Spent in Discharge Care*: greater than 30 min Status at Discharge: Cognitive status at discharge: cognitively intact, Behavioral status at discharge: cooperative, Quality Metrics Clinical Quality Measures [ No reported AMI, CVA or VTE this stay] Coding Level of Care Code 93211 Total time (in minutes) for Discharge: 45 Diagnoses Acute and chronic respiratory failure with hypercapnia J96.22 Acute exacerbation of chronic obstructive airways disease J44.1 Metabolic alkalosis with respiratory acidosis E87.4
== END 2024-03-12 12:05 | disposition home or self-care (01) | DRG 193 ==
LOC: ER 17:53 → ICU 18:22 → MEDSURG 03-08 19:44
PROVIDERS: Admitting Provider Student in an Organized Health Care Education/Training Program; Emergency Provider Family Medicine; PCP Family Medicine; Visit Provider Internal Medicine
DX: J18.9 Pneumonia, unspecified organism (principal); J96.22 Acute and chronic respiratory failure with hypercapnia; J44.1 Chronic obstructive pulmonary disease with (acute) exacerbation; J44.0 Chronic obstructive pulmonary disease with (acute) lower respiratory infection; E87.4 Mixed disorder of acid-base balance; N17.9 Acute kidney failure, unspecified; K21.9 Gastro-esophageal reflux disease without esophagitis; I12.9 Hypertensive chronic kidney disease with stage 1 through stage 4 chronic kidney disease, or unspecified chronic kidney disease; N18.9 Chronic kidney disease, unspecified; F41.9 Anxiety disorder, unspecified; F17.210 Nicotine dependence, cigarettes, uncomplicated; M25.512 Pain in left shoulder; E86.0 Dehydration; E87.6 Hypokalemia; Z99.81 Dependence on supplemental oxygen; Z11.52 Encounter for screening for COVID-19; Z79.51 Long term (current) use of inhaled steroids; Z86.73 Personal history of transient ischemic attack (TIA), and cerebral infarction without residual deficits; Z80.1 Family history of malignant neoplasm of trachea, bronchus and lung
CPT/HCPCS: 36415; 36416; 36600; 51702; 71045; 80048; 80051; 80053; 81001; 82274; 82330; 82805; 82962; 83036; 83735; 84100; 84145; 84443; 84484; 85025; 85378; 86403; 87070; 87205; 87449; 87486; 87581; 87633; 93005; 94640; 94660; 94664; 94760; 96365; 96367; 96372; 96374; 96375; 96376; 99291; J0696; J1100; J1644; J2270; J2470; J2919; J3475; J7614; J7626; J7644; P9045; Q0144

== ENCOUNTER → 2024-03-20 13:11 | Outpatient (BNVA) | payer MEDICAID, SELFPAY | PROVIDERS: PCP Nurse Practitioner Family; Visit Provider Nurse Practitioner Family | DX: J44.1 Chronic obstructive pulmonary disease with (acute) exacerbation (principal); J96.12 Chronic respiratory failure with hypercapnia; R19.5 Other fecal abnormalities; K92.2 Gastrointestinal hemorrhage, unspecified | CPT/HCPCS: 80053; 85025 ==

== ENCOUNTER 2024-04-14 13:16 | Inpatient (IN) | payer MEDICAID, SELFPAY ==
[2024-04-14] VITALS (36 sets, daily range): BP systolic 92–129; BP diastolic 70–93; PULSE 84–116; RESP 15–27; TEMP 36.8–37.8; O2SAT 83–100; BMI 25.7; BMI 24.7
--- NOTE | 2024-04-14 13:22 | XR_ITS ---
WS: [id number] Exam: XR chest 1V portable [id number] Date/Time of Exam: 04/14/2024 1:27 PM Reason For Exam: dyspnea/cough Comparison 03/10/2024. Lungs are fully inflated and clear. Normal cardiomediastinal silhouette. Region al bony structures are intact. XR/XR chest 1V portable [id number] IMPRESSION: 1. No acute cardiopulmonary finding.
--- NOTE | 2024-04-14 13:26 | PC.NURSE ---
PATIENT INSTRUCTED TO BREATHE THRU NOSE AND 6 L NC AND O2 INCREASED TO 87%.
[2024-04-14 13:45] LABS: Basophils % 0.2 %; Hematocrit 40.3 % (36-47); Lymphocytes # 1.1 10^3/uL (0.8-4.8); Lymphocytes % 7.4 %; Mean Corpuscular HGB Conc 30.3 g/dL (30-55); Mean Corpuscular Hemoglobin 30.1 pg (27-33); Mean Corpuscular Volume 99.5 fl (85-98); Mean Platelet Volume 10.7 fL (7.4-10.4); Monocytes # 1.5 10^3/uL (0.2-0.9); Neutrophils # 12.03 10^3/uL (1.8-7.7); Neutrophils % 81.6 %; Nucleated Red Blood Cells % 0 %; Platelet Count 260 10^3/cmm (157-399); Red Blood Count 4.05 10^6/uL (3.85-5.65); Red Cell Distribution Width 13.2 % (12.1-15.1); White Blood Count 14.74 10^3/uL (3.29-11.43)
--- NOTE | 2024-04-14 13:48 | ECG_ITS ---
[facility] Date: 2024-04-14 Pat Name: Estelle Pascual Department: Room: Gender: Female Shoer: : 1970 Requested By: Kentrell Conti Order Number: [id number] Tawanda MD: Taya Villalta M.D. Measurements Intervals [place] Rate: 102 P: 60 HI: 135 QRS: 66 QRSD: 89 T: 58 QT: 356 QTc: 465 Interpretive Statements SINUS TACHYCARDIA ABNORMAL RHYTHM ECG Compared to ECG 03/12/2024 01:39:12 Sinus rhythm no longer present Electronically Signed On 04-15-2024 01:02:43 [employer] by Taya Villalta M.D. [email or web address]
--- NOTE | 2024-04-14 13:49 | ED_ITS ---
HPI - SOB/Dyspnea 2 General: Chief Complaint: Shortness of Breath/Dyspnea Stated Complaint: SOB Time Seen by Provider: 04/14/24 13:22 History of Present Illness: HPI Narrative: 53-year-old female presents to the [facility] ency room with complaints of shortness of breath. Patient states at baseline she is on 6 L by nasal cannula she is satting at 88% on 6 L now. She denies any fever sweats chills or productive cough denies any hemoptysis no chest pain. No recent change in medications. Associated symptoms: Reports chest congestion; Deny abdominal pain, chest pain or fever(s) Related Data Home Medications Medication Instructions Recorded Confirmed Portable Oxygen Concentrator 06/18/23 04/14/24 ferrous gluconate 324 mg (37.5 mg 37.5 mg PO BIDWM 07/18/23 04/14/24 iron) tablet polyethylene glycol 3350 17 17 g PO BID PRN Constipation 07/18/23 04/14/24 gram/dose oral powder sennosides 8.6 mg tablet (Senna 8.6 mg PO BID PRN Constipation 07/18/23 04/14/24 Lax) Previous Rx's Medication Instructions Recorded oxygen and concentrator #1 ea 03/03/20 Inspire Portable oxygen #1 ea 10/30/22 concentrator Portable oxygen concentrator #1 ea 10/30/22 Portable Oxygen Concentrator #1 ea 06/18/23 formoterol fumarate 20 mcg/2 mL 2 ml inhalation BID COPD #120 mL 11/01/23 solution for nebulization (Perforomist) ipratropium 0.5 mg-albuterol 3 mg 3 ml inhalation Q8H shortness of 11/01/23 (2.5 mg base)/3 mL nebulization breath or wheezing #90 mL soln bupropion HCl 150 mg 24 hr tablet, 150 mg PO QAM #30 tabs 01/01/24 extended release pantoprazole 40 mg tablet,delayed 40 mg PO DAILY #30 tabs 01/01/24 release azithromycin 250 mg tablet 500 mg (2 x 250 mg) PO DAILY #2 03/12/24 tabs furosemide 40 mg tablet 40 mg PO DAILY@0800 PRN Edema #30 03/12/24 tabs pantoprazole 40 mg tablet,delayed 40 mg PO BID #84 tabs 03/12/24 release prednisone 20 mg tablet 20 mg PO DAILY #20 tabs 03/12/24 sucralfate 1 gram tablet 1 g PO AC&BEDTIME #90 tabs 03/12/24 albuterol sulfate 2.5 mg/3 mL 2.5 mg (3 mL) inhalation QID PRN 03/20/24 (0.083 %) solution for nebulization Shortness Of Breath Or Wheezing #180 mL albuterol sulfate 90 mcg/actuation 2 puff inhalation QID PRN 03/20/24 aerosol inhaler (Ventolin HFA) Shortness Of Breath #8.5 grams budesonide-formoterol HFA 160 2 inh inhalation BID #10.2 grams 03/20/24 mcg-4.5 mcg/actuation aerosol inhaler (Symbicort) tiotropium bromide 18 mcg capsule 1 cap inhalation DAILY #60 03/20/24 with inhalation device (Spiriva inhalations with HandiHaler) Allergies Allergy/AdvReac Type Severity Reaction Status Date / Time hydrocodone Allergy ADR-Vomitin Verified 04/14/24 11:28 g tramadol Allergy ADR-Itching Verified 04/14/24 11:28 Review of Systems 2 Const: Denies: fever(s) or chills Card: Denies: chest pain Resp: Reports: dyspnea, non-productive cough, wheezing and chest congestion GI: Denies: abdominal pain : Denies: dysuria, urinary frequency or urinary urgency Musc: Denies: neck pain or back pain Skin/Breast: Denies: rash PFSH ED 2 PFSH: Medical History Chronic hypercapnic respiratory failure Upper GI bleeding TIA (transient ischemic attack) Dependence on supplemental oxygen HTN (hypertension) Acute exacerbation of chronic obstructive airways disease Tenosynovitis of foot Fracture of fifth metatarsal bone of right foot Gastroesophageal reflux disease Hypertension Anxiety COPD (chronic obstructive pulmonary disease) Right ankle pain Right foot pain Surgical History Hx of tubal ligation History of tonsillectomy and adenoidectomy Hx of cholecystectomy Hx of hernia repair Hx of section Hx of colonoscopy (~2012) Family History Father Cancer lung Heart disease Mother Heart disease Social History Smoking and tobacco/nicotine status: current every day tobacco/nicotine user cigarettes Packs smoked per day: 1 Years cigarettes smoked: 45 Second hand smoke exposure: Yes Alcohol intake: former Former alcohol use details: sober x 20 yrs Substance/Drug Use: never Caregiver/support person: Yes Lives independently: Yes Household members: spouse and children Marital status: service: No Current occupational status: unemployed Current gender identity: Female Special lauryn needs: No Agree to transfusion: No Physical Exam 2 Const: GENERAL APPEARANCE: cooperative ORIENTATION/CONSCIOUSNESS: Yes awake, Yes oriented to person, Yes oriented to place and Yes oriented to time HENMT: COMMON NORMALS: normocephalic, atraumatic and hearing grossly normal bilaterally HEAD & SCALP: normocephalic and atraumatic Resp: COMMON NORMALS: normal respiratory effort, No retractions and No use of accessory muscles AUSCULTATION: wheezes and diminished lung sounds Cardio: COMMON NORMALS: regular rhythm and No murmurs present (Cardio) R ATE: tachycardic RHYTHM: regular rhythm GI: COMMON NORMALS: Soft to palpation and No hepatosplenomegaly present A USCULTATION: Yes normoactive bowel sounds PALPATION: Yes Soft to palpation, No Tenderness to palpation present (GI), No Guarding due to palpation present (GI) and Yes No hepatosplenomegaly present Extremity: COMMON NORMALS: normal to inspection, capillary refill normal, no clubbing, cyanosis or edema, no calf tenderness and no pedal edema Neuro: SENSORIUM/ORIENTATION: Yes oriented to person, Yes oriented to place and Yes oriented to time Skin: COMMON NORMALS: no rashes or lesions noted GENERAL SKIN EXAM: no rashes or lesions noted Course 2 Vital Signs: Vital signs: Vital Signs Temperature 98.3 F 04/14/24 13:19 Pulse Rate 104 H 04/14/24 15:00 Respiratory Rate 20 H 04/14/24 13:58 Blood Pressure 111/87 04/14/24 14:58 Pulse Oximetry 90 04/14/24 14:58 Oxygen Delivery Me thod BiPAP 04/14/24 14:58 Oxygen Flow Rate 6 04/14/24 13:58 Fraction of Inspir ed Oxygen 40 04/14/24 14:41 MDM - SOB/Dyspnea Medical Decision Making Acute exacerbation COPD with hypercapnic respiratory failure started on BiPAP. Discussed with hospitalist orders written Medical Records I reviewed the patient's medical records. Lab Data I reviewed the patient's lab results. 04/14/24 13:40 04/14/24 13:40 Labs/Radiology: Radiology Impressions Chest X-Ray 04/14/24 13:22 IMPRESSION: 1. No acute cardiopulmonary finding. Laboratory Results WBC 14.74 10^3/uL (3.29-11.43) H 04/14/24 13:40 RBC 4.05 10^6/uL (3.85-5.65) 04/14/24 13:40 Hgb 12.20 g/dL (11.27-16.99) 04/14/24 13:40 Hct 40.3 % (36-47) 04/14/24 13:40 MCV 99.5 fl (85-98) H 04/14/24 13:40 MCH 30.1 pg (27-33) 04/14/24 13:40 MCHC 30.3 g/dL (30-55) 04/14/24 13:40 RDW 13.2 % (12.1-15.1) 04/14/24 13:40 Plt Count 260 10^3/cmm (157-399) 04/14/24 13:40 MPV 10.7 fL (7.4-10.4) H 04/14/24 13:40 Neut % (Auto) 81.6 % 04/14/24 13:40 Lymph % (Auto) 7.4 % 04/14/24 13:40 Calvert % (Auto) 10.0 % 04/14/24 13:40 Eos % (Auto) 0.0 % 04/14/24 13:40 Baso % (Auto) 0.2 % 04/14/24 13:40 Neut # (Auto) 12.03 10^3/uL (1.8-7.7) H 04/14/24 13:40 Lymph # (Auto) 1.1 10^3/uL (0.8-4.8) 04/14/24 13:40 Calvert # (Auto) 1.5 10^3/uL (0.2-0.9) H 04/14/24 13:40 Eos # (Auto) 0.0 10^3/uL (0.0-0.8) 04/14/24 13:40 Baso # (Auto) 0.0 10^3/uL (0.0-0.1) 04/14/24 13:40 Nucleated RBC % (auto) 0 % 04/14/24 13:40 Nucleated RBCs # 0.0 /100WBC 04/14/24 13:40 Specimen Type Arterial 04/14/24 14:04 Sample Site Radial, left 04/14/24 14:04 ABG pH 7.41 (7.35-7.45) 04/14/24 14:04 ABG pCO2 96.3 mmHg (35-45) H* 04/14/24 14:04 ABG pO2 53.1 mmHg (80.0-100.0) L 04/14/24 14:04 ABG HCO3 61.2 mmol/L (22-26) H 04/14/24 14:04 ABG O2 Saturation 85.6 04/14/24 14:04 ABG Base Excess 30.5 mmol/L (-2.0-2.0) H 04/14/24 14:04 Braxton Test Pos 04/14/24 14:04 A-a O2 Gradient Not Reportable 04/14/24 14:04 Hematocrit 36.8 % (37-47) L 04/14/24 14:04 Hgb O2 Saturation 83.8 % (95-100) L 04/14/24 14:04 Carboxyhemoglobin 1.6 %THgb (0.4-20.1) 04/14/24 14:04 Methemoglobin 0.5 % (0.4-1.5) 04/14/24 14:04 Total Hemoglobin 12.0 g/dL (12-16) 04/14/24 14:04 Sodium 140.0 mmol/L (131-143) 04/14/24 14:04 Potassium 3.2 mmol/L (3.5-5.0) L 04/14/24 14:04 Glucose 154.0 mg/dL (70-115) H 04/14/24 14:04 Ionized Calcium 1.1 mmol/L (1.1-1.4) 04/14/24 14:04 O2 Delivery Device Nc 04/14/24 14:04 O2 Liters/Min 6.0 % 04/14/24 14:04 Wash Crew Person ID Cak 04/14/24 14:04 Sodium 141 mmol/L (136-145) 04/14/24 13:40 Potassium 3.4 mmol/L (3.5-5.1) L 04/14/24 13:40 Chloride 76 mmol/L (98-107) L 04/14/24 13:40 Carbon Dioxide > 53 mmol/L (22-29) H* 04/14/24 13:40 Anion Gap 15.4 (5-19) 04/14/24 13:40 BUN 26 mg/dL (6-20) H 04/14/24 13:40 Creatinine 1.7 mg/dL (0.5-0.9) H 04/14/24 13:40 GFR Calculation 31.2 mL/min (90-130) L 04/14/24 13:40 Glucose 181 mg/dL (65-115) H 04/14/24 13:40 Calculated Osmolality 301 mOsm/kg (285-295) H 04/14/24 13:40 Calcium 9.6 mg/dL (8.5-10.5) 04/14/24 13:40 Total Bilirubin 0.3 mg/dL (0.15-1.2) 04/14/24 13:40 AST 53 U/L (0-32) H 04/14/24 13:40 ALT 42 U/L (0-33) H 04/14/24 13:40 Alkaline Phosphatase 116 U/L (35-105) H 04/14/24 13:40 Total Protein 6.7 g/dL (6.6-8.7) 04/14/24 13:40 Albumin 4.2 g/dL (3.5-5.2) 04/14/24 13:40 Globulin 2.5 g/dL (1.3-4.6) 04/14/24 13:40 All radiology interpretation(s) finalized by discharge Discharge Plan Discharge Patient Disposition: Admitted As Inpatient Clinical Impression: Acute and chronic respiratory failure with hypercapnia, Acute exacerbation of chronic obstructive airways disease, Elevated transaminase level Condition: Stable Coding Level of Care Code ED Preparer Samples And Repairs for Vishal Badillo
[2024-04-14] MEDS: ipratropium-albuterol 3 mL Neb INHALATION ×2 (13:57→19:33)
[2024-04-14 14:04] LABS: Alanine Aminotransferase 42 U/L (0-33); Albumin Level 4.2 g/dL (3.5-5.2); Alkaline Phosphatase 116 U/L (35-105); Aspartate Amino Transferase 53 U/L (0-32); Blood Urea Nitrogen 26 mg/dL (6-20); Calcium 9.6 mg/dL (8.5-10.5); Chloride 76 mmol/L (98-107); Creatinine Clr Calc Pharmacy 30.2515; Globulin 2.5 g/dL (1.3-4.6); Glomerular Filtration Rate 31.2 mL/min (90-130); Glucose 181 mg/dL (65-115); Osmolality Calculated 301 mOsm/kg (285-295); Potassium 3.4 mmol/L (3.5-5.1); Sodium 141 mmol/L (136-145); Total Bilirubin 0.3 mg/dL (0.15-1.2); Total Protein 6.7 g/dL (6.6-8.7)
[2024-04-14 14:12] LABS: Anion Gap 15.4 (5-19); Carbon Dioxide > 53 mmol/L (22-29)
[2024-04-14 14:16] LABS: ABG PCO2 96.3 mmHg (35-45); ABG PH Result 7.41 (7.35-7.45); Arterial Blood Gas Hematocrit 36.8 % (37-47); Base Excess ABG 30.5 mmol/L (-2.0-2.0); Blood Gas Allen Test Pos; Blood Gas Operator Identificat CAK; Blood Gas Sample Site Radial, left; Blood Gas Sample Type Arterial; Carboxyhemoglobin 1.6 %THgb (0.4-20.1); HCO3 ABG 61.2 mmol/L (22-26); HGB O2 Sat 83.8 % (95-100); Ionized Calcium Level - ABG 1.1 mmol/L (1.1-1.4); Methemoglobin 0.5 % (0.4-1.5); Oxygen Device NC; Oxygen Saturation ABG 85.6; PO2 ABG 53.1 mmHg (80.0-100.0); Potassium Level - ABG 3.2 mmol/L (3.5-5.0)
[2024-04-14] MEDS: methylPREDNISolone sod succ 125 mg/2 mL INJ IVP (14:35)
--- NOTE | 2024-04-14 16:17 | PC.NURSE ---
pt refused nasal swab
[2024-04-14 16:48] LABS: NT Pro B Type Natriuretic Pept 7512 pg/mL (0-125); Procalcitonin 1.32 ng/mL (0-0.5); Thyroid Stimulating Hormone 1.13 uIU/mL (0.27-4.20)
[2024-04-14] MEDS: sodium chloride 0.9% 1,000 ML 75 ML IV (17:10)
[2024-04-14] MEDS: cefTRIAXone 1,000 mg SDV 1000 MG IVP (17:10)
--- NOTE | 2024-04-14 18:04 | ECG_ITS ---
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 Measurements Intervals [place] Rate: 95 P: 88 IN: 134 QRS: 71 QRSD: 88 T: 59 QT: 366 QTc: 462 Interpretive Statements SINUS RHYTHM Compared to ECG 04/14/2024 13:48:38 Sinus tachycardia no longer present Electronically Signed On 04-15-2024 01:02:36 BREAKFAST HOST by Taya Villalta M.D. [email or web address]
--- NOTE | 2024-04-14 18:14 | PHA.VACGOAL ---
Vancomycin Goal - Goal Vancomycin Goal:: 10-15 mg/L Vancomycin Indication:: Other - Therapy Current therapy:: Pip/Tazo Day of therpy:: Day []of [] . Actual body weight (kg): 132 lb - Data Labs: WBC 14.74 10^3/uL (3.29-11.43) H 04/14/24 13:40 RBC 4.05 10^6/uL (3.85-5.65) 04/14/24 13:40 Hgb 12.20 g/dL (11.27-16.99) 04/14/24 13:40 Hct 40.3 % (36-47) 04/14/24 13:40 MCV 99.5 fl (85-98) H 04/14/24 13:40 MCH 30.1 pg (27-33) 04/14/24 13:40 MCHC 30.3 g/dL (30-55) 04/14/24 13:40 RDW 13.2 % (12.1-15.1) 04/14/24 13:40 Sodium 141 mmol/L (136-145) 04/14/24 13:40 Potassium 3.4 mmol/L (3.5-5.1) L 04/14/24 13:40 Chloride 76 mmol/L (98-107) L 04/14/24 13:40 Carbon Dioxide > 53 mmol/L (22-29) H* 04/14/24 13:40 Anion Gap 15.4 (5-19) 04/14/24 13:40 BUN 26 mg/dL (6-20) H 04/14/24 13:40 Creatinine 1.7 mg/dL (0.5-0.9) H 04/14/24 13:40 GFR Calculation 31.2 mL/min (90-130) L 04/14/24 13:40 Last dialysis session:: N/A Treatment plan:: new consult Regimen:: 1000 mg LOADING DOSE MAINTENANCE DOSE OF 750 mg Q24H Follow up:: WILL CONTINUE TO MONITOR AND FOLLOW UP DAILY
[2024-04-14 18:28] LABS: ABG PCO2 81.4 mmHg (35-45); ABG PH Result 7.49 (7.35-7.45); Alveolar-Arterial Oxygen Gradi 9.1 mmHg (5-10); Arterial Blood Gas Hematocrit 35.9 % (37-47); Base Excess ABG 32.2 mmol/L (-2.0-2.0); Blood Gas Allen Test Pos; Blood Gas Operator Identificat CAK; Blood Gas Sample Site Brachial, left; Blood Gas Sample Type Arterial; Carboxyhemoglobin 1.4 %THgb (0.4-20.1); HCO3 ABG 61.2 mmol/L (22-26); HGB O2 Sat 81.9 % (95-100); Methemoglobin 0.4 % (0.4-1.5); Oxygen Device BIPAP; Oxygen Saturation ABG 83.4; PO2 ABG 47.5 mmHg (80.0-100.0); PO2 FiO2 Ratio Arterial Blood 158; Potassium Level - ABG 2.9 mmol/L (3.5-5.0); Total Hemoglobin 11.7 g/dL (12-16)
--- NOTE | 2024-04-14 18:41 | P.HP_ITS ---
Providers/Chief Complaint 2 Admitting Physician: Angle Rizzo MD Primary Care Provider: KELLY Alva Chief Complaint: SOB History of Present Illness Estelle Pascual is a 53 year old female with history of advanced COPD, active smoker smokes 6 cigarettes a day, 6 L of oxygen during the daytime and uses BiPAP 18/8 settings waiting for trilogy approval from insurance, presented with worsening of shortness of breath. As per the daughter who is at bedside stating that she smokes 6 cigarettes a day, for last 2 weeks she has been weak and lethargic has been struggling with her shortness of breath, and last 48 hours it has worsened, she was evaluated by the PCP as well because of low O2 saturation it was fluctuating between 75-89 as per the daughter. Patient has not experienced any nausea, vomiting or any fever at home. In the ER her pH was compensated by her higher hypercapnia, she was recently discharged from the hospital, discharge summary reviewed, patient was transferring from [facility] to ICU because of change in mentation, Patient is responding to painful stimuli in the ICU, pCO2 improving, FiO2 increased to 50% currently she is on AVAPS with tidal volume of 400 Daughters at the bedside X-ray consistent with pneumonia I do not see any signs of fluid overload on x- ray or clinical exam Review of Systems 2 General: Reports: ROS unobtainable due to medical condition Medications/Allergies Home Medications Medication Instructions Recorded Confirmed Last Taken Type oxygen and concentrator #1 ea 03/03/20 04/14/24 Unknown Rx Inspire Portable oxygen #1 ea 10/30/22 04/14/24 Unknown Rx concentrator Portable oxygen concentrator #1 ea 10/30/22 04/14/24 Unknown Rx Portable Oxygen Concentrator 06/18/23 04/14/24 Unknown History Portable Oxygen Concentrator #1 ea 06/18/23 04/14/24 Unknown Rx ferrous gluconate 324 mg (37.5 mg 37.5 mg PO BIDWM 07/18/23 04/14/24 04/13/24 History iron) tablet sennosides 8.6 mg tablet (Senna 8.6 mg PO BID PRN Constipation 07/18/23 04/14/24 07/17/23 History Lax) bupropion HCl 150 mg 24 hr tablet, 150 mg PO QAM #30 tabs 01/01/24 04/14/2404/13/24 Rx extended release furosemide 40 mg tablet 40 mg PO DAILY@0800 PRN Edema #30 03/12/24 04/14/24 Unknown Rx tabs pantoprazole 40 mg tablet,delayed 40 mg PO BID #84 tabs 03/12/24 04/14/24 04/13/24 Rx release sucralfate 1 gram tablet 1 g PO AC&BEDTIME #90 tabs 03/12/24 04/14/24 04/13/24 Rx albuterol sulfate 2.5 mg/3 mL 2.5 mg (3 mL) inhalation QID PRN 03/20/24 04/14/24 Unknown Rx (0.083 %) solution for nebulization Shortness Of Breath Or Wheezing #180 mL albuterol sulfate 90 mcg/actuation 2 puff inhalation QID PRN 03/20/24 04/14/24 Unknown Rx aerosol inhaler (Ventolin HFA) Shortness Of Breath #8.5 grams budesonide-formoterol HFA 160 2 inh inhalation BID #10.2 grams 03/20/24 04/14/24 04/13/24 Rx mcg-4.5 mcg/actuation aerosol inhaler (Symbicort) tiotropium bromide 18 mcg capsule 1 cap inhalation DAILY #60 03/20/24 04/14/24 04/13/24 Rx with inhalation device (Spiriva inhalations with HandiHaler) Allergies Allergy/AdvReac Type Severity Reaction Status Date / Time hydrocodone Allergy ADR-Vomitin Verified 04/14/24 11:28 g tramadol Allergy ADR-Itching Verified 04/14/24 11:28 PFSH Acute 2 PFSH: Medical History Chronic hypercapnic respiratory failure Upper GI bleeding TIA (transient ischemic attack) Dependence on supplemental oxygen HTN (hypertension) Acute exacerbation of chronic obstructive airways disease Tenosynovitis of foot Fracture of fifth metatarsal bone of right foot Gastroesophageal reflux disease Hypertension Anxiety COPD (chronic obstructive pulmonary disease) Right ankle pain Right foot pain Surgical History Hx of tubal ligation History of tonsillectomy and adenoidectomy Hx of cholecystectomy Hx of hernia repair Hx of section Hx of colonoscopy (~2012) Family History Father Cancer lung Heart disease Mother Heart disease Social History Smoking and tobacco/nicotine status: current every day tobacco/nicotine user cigarettes Packs smoked per day: 1 Years cigarettes smoked: 45 Second hand smoke exposure: Yes Alcohol intake: former Former alcohol use details: sober x 20 yrs Substance/Drug Use: never Caregiver/support person: Yes Lives independently: Yes Household members: spouse and children Marital status: service: No Current occupational status: unemployed Current gender identity: Female Special lauryn needs: No Agree to transfusion: No Vitals/I&O/Wt Last Vital Signs Temp 98.3 F 04/14/24 13:19 Pulse 96 04/14/24 18:06 Resp 20 H 04/14/24 13:58 BP 129/91 04/14/24 18:06 Pulse Ox 92 04/14/24 18:06 O2 Del Method BiPAP 04/14/24 17:12 O2 Flow Rate 6 04/14/24 13:58 FiO2 40 04/14/24 16:03 Weight last 48 hrs Weight 59.874 kg Physical Exam 2 Narrative: Patient looks dry Currently on AVAPS Tidal volume 400 Responsive to painful stimuli, opens eyes, not able to follow commands completely, goes back to sleep right away Dry skin S1, S2 Blood pressure 109/83 mmHg IV fluid at the bedside With painful stimuli she is able to move her extremities, I do not appreciate any focal deficit at this point however neuroexam is limited Abdomen soft nontender Data 04/14/24 13:40 04/14/24 13:40 A&P Assessment and plan (1) Anxiety: (2) Hypertension: (3) Upper GI bleeding: (4) Constipation: (5) CKD (chronic kidney disease): (6) Hypokalemia: (7) Metabolic alkalosis with respiratory acidosis: (8) Altered mental status: (9) COPD (chronic obstructive pulmonary disease): Qualifiers: COPD type: COPD with acute exacerbation Qualified Code(s): J44.1 - Chronic obstructive pulmonary disease with (acute) exacerbation (10) Chronic hypercapnic respiratory failure: (11) Acute and chronic respiratory failure with hypercapnia: (12) Acute exacerbation of chronic obstructive airways disease: (13) Encounter for smoking cessation counseling: Plan Acute on chronic hypoxic hypercarbic respiratory failure Secondary to noncompliance and active smoking Will request D-dimer X-ray consistent with pneumonia pH compensated, hypercapnia improving We have transferred her to ICU for closer monitoring, repeat ABG in 1 hour High procalcitonin with leukocytosis, no active fever, continue broad-spectrum antibiotics secondary to recent hospitalization, continue IV steroids Continue IV fluids patient looks clinically dry Patient has BiPAP at home, waiting for trilogy approval by the insurance Uses 6 L of oxygen at baseline As per the daughter she has not slept well in last few days Patient and family agreeable for intubation as a last resort Patient has respiratory acidosis with metabolic alkalosis Currently clinically she looks dry, continue IV fluids Careful use of acetazolamide not to offset her balance which is in compensation to chronic hypercapnia For now holding off on diuretics Acute on chronic kidney disease: Anticipating improvement with IV fluid hydration, will discontinue IV fluids after 12 hours Active smoker: Patient has cut down on her smoking as per the daughter now she is smoking 5 to 6 cigarettes a day Concern for upper GI bleed, Hemoccult positive, will put her on Protonix She was asked to follow-up outpatient for upper GI endoscopy, this could be related to recurrent use of steroids N.p.o. for now Full code DVT prophylaxis heparin Attestations 2 Medical Necessity Statement*: More than 2 midnights anticipated Diagnoses Anxiety F41.9 Hypertension I10 Upper GI bleeding K92.2 Constipation K59.00 CKD (chronic kidney disease) N18.9 Hypokalemia E87.6 Metabolic alkalosis with respiratory acidosis E87.4 Altered mental status R41.82 Chronic obstructive pulmonary disease with acute exacerbation J44.1 COPD type: COPD with acute exacerbation Chronic hypercapnic respiratory failure J96.12 Acute and chronic respiratory failure with hypercapnia J96.22 Acute exacerbation of chronic obstructive airways disease J44.1 Encounter for smoking cessation counseling Z71.6
--- NOTE | 2024-04-14 18:47 | PC.NURSE ---
1800-Pt received from ER. ER nurse states that pt has had a decline in her LOC over the last 30 minutes. Pt very lethargic. Briefly opens eyes, and then closes them. Nonverbal. Dr. Rizzo contacted and advised of change in LOC. Orders received for stat ABG, EKG, and transfer to ICU. Pt transferred to ICU at this time.
[2024-04-14] MEDS: VANCOMYCIN ADD-Vantage 1,000 MG in 0.9% NaCl ADD-Vantage 250 ML 250 MG IV (19:24)
[2024-04-14] MEDS: heparin 5,000 unit/mL INJ 1 mL 5000 UNIT SUBCUT (19:26)
[2024-04-14 19:53] LABS: Base Excess ABG 30.6 mmol/L (-2.0-2.0); Blood Gas Operator Identificat JDB; Blood Gas Sample Site Brachial, right; Blood Gas Sample Type Arterial; Oxygen Device BIPAP; Potassium Level - ABG 2.7 mmol/L (3.5-5.0); Total Hemoglobin 11.4 g/dL (12-16)
[2024-04-14 19:55] LABS: Alveolar-Arterial Oxygen Gradi 26.3 mmHg (5-10); Arterial Blood Gas Hematocrit 34.8 % (37-47); Carboxyhemoglobin 1.1 %THgb (0.4-20.1); HCO3 ABG 58.9 mmol/L (22-26); HGB O2 Sat 91.1 % (95-100); Oxygen Saturation ABG 93.1; PO2 FiO2 Ratio Arterial Blood 128
[2024-04-14 20:00] LABS: ABG PCO2 75.8 mmHg (35-45)
[2024-04-14 20:40] LABS: D Dimer 0.64 ug/mLFEU (0-0.59)
[2024-04-14] MEDS: piperacillin-tazobactam 3.375 GM in sodium chloride 0.9% (plus) 50 ML IV (21:44)
--- NOTE | 2024-04-14 23:59 | PC.NURSE ---
Hold PO meds: Dr. Guadarrama gave verbal orders to hold PO meds as patient is still very lethargic and requiring constant biPAP.
[2024-04-15] VITALS (36 sets, daily range): BP systolic 78–131; BP diastolic 31–85; PULSE 75–104; RESP 15–29; TEMP 36.1–37.7; O2SAT 87–98; BMI 25.0
[2024-04-15 00:16] LABS: Covid PCR NEGATIVE (Negative); Influenza A NEGATIVE (Negative); Influenza B NEGATIVE (Negative); Respiratory Syncytial Virus Ce NEGATIVE (Negative)
[2024-04-15 00:53] LABS: MRSA PCR OZH (swab) NOT DETECTED (Not Detecte)
[2024-04-15] MEDS: piperacillin-tazobactam 3.375 GM in sodium chloride 0.9% (plus) 50 ML IV ×3 (02:08→18:24)
[2024-04-15] MEDS: methylPREDNISolone sod succ 40 mg/mL INJ IVP ×2 (02:08→14:57)
[2024-04-15] MEDS: sodium chloride 0.9% 1,000 ML 75 ML IV (02:14)
[2024-04-15] MEDS: ipratropium-albuterol 3 mL Neb INHALATION ×4 (03:57→21:05)
[2024-04-15 04:18] LABS: Hematocrit 33.3 % (36-47); Lymphocytes # 1.1 10^3/uL (0.8-4.8); Mean Corpuscular HGB Conc 30.9 g/dL (30-55); Mean Corpuscular Volume 97.1 fl (85-98); Mean Platelet Volume 11.3 fL (7.4-10.4); Monocytes # 0.2 10^3/uL (0.2-0.9); Neutrophils % 82.3 %; Nucleated Red Blood Cells % 0 %; Platelet Count 206 10^3/cmm (157-399); Red Blood Count 3.43 10^6/uL (3.85-5.65); Red Cell Distribution Width 13.5 % (12.1-15.1); White Blood Count 8.02 10^3/uL (3.29-11.43)
[2024-04-15 04:41] LABS: Anion Gap 14.1 (5-19); Blood Urea Nitrogen 34 mg/dL (6-20); Calcium 9.3 mg/dL (8.5-10.5); Chloride 80 mmol/L (98-107); Creatinine Clr Calc Pharmacy 33.6099; Glomerular Filtration Rate 36.1 mL/min (90-130); Glucose 131 mg/dL (65-115); Magnesium 1.6 mg/dL (1.7-2.3); Osmolality Calculated 301 mOsm/kg (285-295); Potassium 3.1 mmol/L (3.5-5.1); Sodium 141 mmol/L (136-145)
[2024-04-15 04:51] LABS: Carbon Dioxide 50 mmol/L (22-29)
[2024-04-15 05:12] LABS: ABG PH Result 7.55 (7.35-7.45); Blood Gas Operator Identificat JDB; Oxygen Device BIPAP
[2024-04-15 05:14] LABS: Blood Gas Allen Test Pos
[2024-04-15 05:44] LABS: ABG PCO2 56.6 mmHg (35-45); Alveolar-Arterial Oxygen Gradi 40.6 mmHg (5-10); Arterial Blood Gas Hematocrit 32.7 % (37-47); Base Excess ABG 29.6 mmol/L (-2.0-2.0); Blood Gas Sample Site Radial, right; Blood Gas Sample Type MixedVenous; Carboxyhemoglobin 0.9 %THgb (0.4-20.1); HCO3 ABG 55.1 mmol/L (22-26); HGB O2 Sat 85.1 % (95-100); Oxygen Saturation ABG 86.8; PO2 ABG 48.2 mmHg (80.0-100.0); PO2 FiO2 Ratio Arterial Blood 80; Potassium Level - ABG 2.6 mmol/L (3.5-5.0); Total Hemoglobin 10.7 g/dL (12-16)
[2024-04-15] MEDS: heparin 5,000 unit/mL INJ 1 mL 5000 UNIT SUBCUT ×2 (07:00→18:28)
[2024-04-15] MEDS: pantoprazole DR 40 mg Tablet PO ×2 (08:55→17:50)
[2024-04-15] MEDS: sucralfate 1 gm Tablet PO ×4 (08:55→21:23)
--- NOTE | 2024-04-15 12:11 | P.PN_ITS ---
Subjective 2 Subjective: pt on NC at this time coherent, able to provide history was on bipap overnight appears dehydrated denies sob at rest at this time Vitals/I&O/Wt Last Vital Signs Temp 96.9 F L 04/15/24 09:04 Pulse 93 04/15/24 07:56 Resp 16 04/15/24 07:56 BP 106/71 04/15/24 04:00 Pulse Ox 92 04/15/24 07:56 O2 Del Method BiPAP 04/15/24 07:56 O2 Flow Rate 6 04/14/24 13:58 FiO2 50 04/15/24 07:56 04/14/24 04/15/24 04/15/24 22:59 06:59 14:59 Intake Total 137.5 / 137.5 50 / 187.5 650 / 650 Balance 137.5 / 137.5 50 / 187.5 650 / 650 Weight last 48 hrs Weight 58.06 kg Weight 57.351 kg Weight 59.874 kg Physical Exam 2 Narrative: AO x3 dehydrated normal s1, s2, lungs clear to auscultation b/l with overall decreased aeration able to move all 4 extremities, no focal deficits Abdomen soft nontender Data 04/15/24 03:58 04/15/24 03:58 A&P Assessment and plan (1) Anxiety: (2) Hypertension: (3) Upper GI bleeding: (4) Constipation: (5) CKD (chronic kidney disease): (6) Hypokalemia: (7) Metabolic alkalosis with respiratory acidosis: (8) Altered mental status: (9) COPD (chronic obstructive pulmonary disease): Qualifiers: COPD type: COPD with acute exacerbation Qualified Code(s): J44.1 - Chronic obstructive pulmonary disease with (acute) exacerbation (10) Chronic hypercapnic respiratory failure: (11) Acute and chronic respiratory failure with hypercapnia: (12) Acute exacerbation of chronic obstructive airways disease: (13) Encounter for smoking cessation counseling: Plan Acute on chronic hypoxic hypercarbic respiratory failure Secondary to noncompliance and active smoking Will request D-dimer X-ray consistent with pneumonia pH compensated, hypercapnia improving We have transferred her to ICU for closer monitoring, repeat ABG in 1 hour High procalcitonin with leukocytosis, no active fever, continue broad-spectrum antibiotics secondary to recent hospitalization, continue IV steroids Continue IV fluids patient looks clinically dry Patient has BiPAP at home, waiting for trilogy approval by the insurance Uses 6 L of oxygen at baseline As per the daughter she has not slept well in last few days Patient and family agreeable for intubation as a last resort Patient has respiratory acidosis with metabolic alkalosis Currently clinically she looks dry, continue IV fluids Careful use of acetazolamide not to offset her balance which is in compensation to chronic hypercapnia For now holding off on diuretics Acute on chronic kidney disease: Anticipating improvement with IV fluid hydration, will discontinue IV fluids after 12 hours Active smoker: Patient has cut down on her smoking as per the daughter now she is smoking 5 to 6 cigarettes a day Concern for upper GI bleed, Hemoccult positive, will put her on Protonix She was asked to follow-up outpatient for upper GI endoscopy, this could be related to recurrent use of steroids N.p.o. for now Full code DVT prophylaxis heparin 04/15/2024 - d dimer 0.64 - lower than previous visits, cr at 1.5 at this time. will avoid cta chest, low suspicion of PE however cannot be ruled out at this time - xray shows pna - continue vanc and zosyn considering previous and recent hospital stay - discussed with case mgmt regarding trilogy approval - currently on bipap at home, this was prescribed in 2021 - continue IV fluids, pt appears dehydrated - continue gentle hydration 75 cc/hr - continue protonix and sucralfate - sputum gm stain culture pending - blood culture pending - continue to monitor in ICU Attestations 2 Medical Necessity Statement*: More than 2 midnights anticipated Diagnoses Anxiety F41.9 Hypertension I10 Upper GI bleeding K92.2 Constipation K59.00 CKD (chronic kidney disease) N18.9 Hypokalemia E87.6 Metabolic alkalosis with respiratory acidosis E87.4 Altered mental status R41.82 Chronic obstructive pulmonary disease with acute exacerbation J44.1 COPD type: COPD with acute exacerbation Chronic hypercapnic respiratory failure J96.12 Acute and chronic respiratory failure with hypercapnia J96.22 Acute exacerbation of chronic obstructive airways disease J44.1 Encounter for smoking cessation counseling Z71.6
[2024-04-15] MEDS: potassium chloride ER 20 mEq Tablet 40 MEQ PO (13:00)
[2024-04-15] MEDS: magnesium sulfate premix 1 GM/100 ML PIGGYBACK IV (13:01)
[2024-04-15] MEDS: VANCOMYCIN ADD-Vantage 750 MG in 0.9% NaCl ADD-Vantage 250 ML 250 MG IV (17:50)
[2024-04-15] MEDS: magnesium oxide 400 mg tablet PO (23:14)
[2024-04-16] VITALS (20 sets, daily range): BP systolic 92–130; BP diastolic 62–86; PULSE 80–108; RESP 14–32; TEMP 36.6–37.4; O2SAT 89–96
[2024-04-16] MEDS: ipratropium-albuterol 3 mL Neb INHALATION ×4 (02:09→20:36)
[2024-04-16] MEDS: piperacillin-tazobactam 3.375 GM in sodium chloride 0.9% (plus) 50 ML IV ×3 (02:21→18:11)
[2024-04-16] MEDS: methylPREDNISolone sod succ 40 mg/mL INJ IVP ×2 (02:22→14:11)
[2024-04-16 05:37] LABS: Hematocrit 32.5 % (36-47); Lymphocytes # 0.5 10^3/uL (0.8-4.8); Lymphocytes % 4.1 %; Mean Corpuscular HGB Conc 31.1 g/dL (30-55); Mean Corpuscular Hemoglobin 30.4 pg (27-33); Mean Corpuscular Volume 97.9 fl (85-98); Mean Platelet Volume 11.6 fL (7.4-10.4); Monocytes # 0.4 10^3/uL (0.2-0.9); Monocytes % 3.4 %; Neutrophils # 11.14 10^3/uL (1.8-7.7); Neutrophils % 91.7 %; Nucleated Red Blood Cells % 0.2 %; Platelet Count 213 10^3/cmm (157-399); Red Blood Count 3.32 10^6/uL (3.85-5.65); White Blood Count 12.15 10^3/uL (3.29-11.43)
[2024-04-16] MEDS: sucralfate 1 gm Tablet PO ×4 (07:31→21:44)
[2024-04-16] MEDS: heparin 5,000 unit/mL INJ 1 mL 5000 UNIT SUBCUT ×2 (07:31→18:12)
[2024-04-16] MEDS: pantoprazole DR 40 mg Tablet PO ×2 (08:21→17:17)
[2024-04-16] MEDS: magnesium oxide 400 mg tablet PO ×2 (08:21→17:17)
[2024-04-16] MEDS: phosphorus 250 mg Tablet PO (08:21)
[2024-04-16 08:50] LABS: Anion Gap 9.7 (5-19); Blood Urea Nitrogen 29 mg/dL (6-20); Calcium 9.1 mg/dL (8.5-10.5); Chloride 90 mmol/L (98-107); Creatinine Clr Calc Pharmacy 43.2052; Glomerular Filtration Rate 46.6 mL/min (90-130); Glucose 317 mg/dL (65-115); Osmolality Calculated 308 mOsm/kg (285-295); Sodium 140 mmol/L (136-145)
[2024-04-16 08:54] LABS: Carbon Dioxide 43 mmol/L (22-29); Phosphorus 0.4 mg/dL (2.5-4.5); Potassium 2.7 mmol/L (3.5-5.1)
[2024-04-16] MEDS: potassium phosphate (mEq K) 40 MEQ in sodium chloride 0.9% (100 ml) 100 ML 27.25 MEQ IV (10:03)
--- NOTE | 2024-04-16 16:14 | PM.PN ---
Subjective Subjective: seen today laying in bed, with daughters at bedside case management working on authorization of [facility] potassium and phosphate being repleted Vitals/I&O/Wt Last Vital Signs Temp 98.0 F 04/16/24 12:00 Pulse 97 04/16/24 14:13 Resp 21 H 04/16/24 14:00 BP 115/79 04/16/24 12:00 Pulse Ox 94 04/16/24 14:00 O2 Del Method BiPAP 04/16/24 14:00 O2 Flow Rate 6 04/16/24 08:00 FiO2 40 04/16/24 14:00 04/16/24 04/16/24 04/16/24 06:59 14:59 22:59 Intake Total 50 / 2950 600 / 600 Output Total 300 / 1100 650 / 650 Balance -250 / 1850 -50 / -50 Weight last 48 hrs Weight 60.917 kg Weight 58.06 kg Weight 57.351 kg Physical Exam Narrative: AO x3 appears euvolemic normal s1, s2, lungs clear to auscultation b/l with overall decreased aeration able to move all 4 extremities, no focal deficits Abdomen soft nontender currently on bipap Data 04/16/24 05:29 04/16/24 21:16 Micro: Microbiology 04/15/24 12:00 Gram Stain - Final Sputum - Expectorated Sputum Sputum Culture - Preliminary A&P Assessment and plan (1) Anxiety: (2) Hypertension: (3) Upper GI bleeding: (4) Constipation: (5) CKD (chronic kidney disease): (6) Hypokalemia: (7) Metabolic alkalosis with respiratory acidosis: (8) Altered mental status: (9) COPD (chronic obstructive pulmonary disease): Qualifiers: COPD type: COPD with acute exacerbation Qualified Code(s): J44.1 - Chronic obstructive pulmonary disease with (acute) exacerbation (10) Chronic hypercapnic respiratory failure: (11) Acute and chronic respiratory failure with hypercapnia: (12) Acute exacerbation of chronic obstructive airways disease: (13) Encounter for smoking cessation counseling: Plan Acute on chronic hypoxic hypercarbic respiratory failure Secondary to noncompliance and active smoking Will request D-dimer X-ray consistent with pneumonia pH compensated, hypercapnia improving We have transferred her to ICU for closer monitoring, repeat ABG in 1 hour High procalcitonin with leukocytosis, no active fever, continue broad-spectrum antibiotics secondary to recent hospitalization, continue IV steroids Continue IV fluids patient looks clinically dry Patient has BiPAP at home, waiting for trilogy approval by the insurance Uses 6 L of oxygen at baseline As per the daughter she has not slept well in last few days Patient and family agreeable for intubation as a last resort Patient has respiratory acidosis with metabolic alkalosis Currently clinically she looks dry, continue IV fluids Careful use of acetazolamide not to offset her balance which is in compensation to chronic hypercapnia For now holding off on diuretics Acute on chronic kidney disease: Anticipating improvement with IV fluid hydration, will discontinue IV fluids after 12 hours Active smoker: Patient has cut down on her smoking as per the daughter now she is smoking 5 to 6 cigarettes a day Concern for upper GI bleed, Hemoccult positive, will put her on Protonix She was asked to follow-up outpatient for upper GI endoscopy, this could be related to recurrent use of steroids N.p.o. for now Full code DVT prophylaxis heparin 04/16/2024 - d dimer 0.64 - lower than previous visits, cr at 1.5 at this time. will avoid cta chest, low suspicion of PE however cannot be ruled out at this time - xray shows pna - continue vanc and zosyn considering previous and recent hospital stay. complete 7 days todal - discussed with case mgmt regarding trilogy approval - currently on bipap at home, this was prescribed in 2021, case management working on trilogy - stop IV fluids - continue protonix and sucralfate - sputum gm stain culture pending - blood culture pending -order pottasium phosphate IV , recheck labs in AM - continue to monitor in ICU Attestations Medical Necessity Statement*: More than 2 midnights anticipated Diagnoses Anxiety F41.9 Hypertension I10 Upper GI bleeding K92.2 Constipation K59.00 CKD (chronic kidney disease) N18.9 Hypokalemia E87.6 Metabolic alkalosis with respiratory acidosis E87.4 Altered mental status R41.82 Chronic obstructive pulmonary disease with acute exacerbation J44.1 COPD type: COPD with acute exacerbation Chronic hypercapnic respiratory failure J96.12 Acute and chronic respiratory failure with hypercapnia J96.22 Acute exacerbation of chronic obstructive airways disease J44.1 Encounter for smoking cessation counseling Z71.6
[2024-04-16] MEDS: VANCOMYCIN ADD-Vantage 750 MG in 0.9% NaCl ADD-Vantage 250 ML 250 MG IV (18:08)
--- NOTE | 2024-04-16 20:30 | PC.NURSE ---
Contacted. Dr. Guadarrama in reference to critical labs on patient, potassium of 1.6 and Ca of 4.8. Dr. Guadarrama agreed with lab of redrawing again and follow up with him with results.
[2024-04-16 22:01] LABS: Blood Urea Nitrogen 25 mg/dL (6-20); Calcium 8.5 mg/dL (8.5-10.5); Chloride 93 mmol/L (98-107); Creatinine Clr Calc Pharmacy 34.5641; Glomerular Filtration Rate 36.1 mL/min (90-130); Glucose 183 mg/dL (65-115); Osmolality Calculated 307 mOsm/kg (285-295); Phosphorus 1.5 mg/dL (2.5-4.5); Potassium 3.4 mmol/L (3.5-5.1); Sodium 144 mmol/L (136-145)
[2024-04-16 23:08] LABS: Anion Gap 13.4 (5-19)
[2024-04-16 23:15] LABS: Carbon Dioxide 41 mmol/L (22-29)
[2024-04-17] VITALS (12 sets, daily range): BP systolic 88–127; BP diastolic 56–78; PULSE 87–101; RESP 16–27; TEMP 36.3–37.7; O2SAT 89–95
[2024-04-17] MEDS: ipratropium-albuterol 3 mL Neb INHALATION ×2 (02:21→07:53)
[2024-04-17] MEDS: methylPREDNISolone sod succ 40 mg/mL INJ IVP (02:22)
[2024-04-17] MEDS: piperacillin-tazobactam 3.375 GM in sodium chloride 0.9% (plus) 50 ML IV (02:22)
[2024-04-17] MEDS: sucralfate 1 gm Tablet PO (06:22)
[2024-04-17] MEDS: heparin 5,000 unit/mL INJ 1 mL 5000 UNIT SUBCUT (06:22)
[2024-04-17] MEDS: lidocaine 1% 10 ML INJ 5 ML IV (08:43)
[2024-04-17] MEDS: potassium phosphate (mEq K) 40 MEQ in sodium chloride 0.9% (100 ml) 100 ML 27.25 MEQ IV (08:43)
[2024-04-17] MEDS: magnesium oxide 400 mg tablet PO (08:49)
[2024-04-17] MEDS: pantoprazole DR 40 mg Tablet PO (08:49)
--- NOTE | 2024-04-17 09:01 | PM.PN ---
Vitals/I&O/Wt Last Vital Signs Temp 97.6 F 04/17/24 04:00 Pulse 91 04/17/24 07:55 Resp 19 H 04/17/24 07:54 BP 124/78 04/17/24 04:00 Pulse Ox 91 04/17/24 07:55 O2 Del Method BiPAP 04/17/24 07:54 O2 Flow Rate 6 04/17/24 03:07 FiO2 40 04/17/24 07:55 04/16/24 04/17/24 04/17/24 22:59 06:59 14:59 Intake Total 700 / 1350 444 / 1794 50 / 50 Output Total 1050 / 1700 300 / 2000 Balance -350 / -350 144 / -206 50 / 50 Weight last 48 hrs Weight 62.278 kg Weight 60.917 kg Data 04/16/24 05:29 04/16/24 21:16 Micro: Microbiology 04/15/24 12:00 Gram Stain - Final Sputum - Expectorated Sputum Sputum Culture - Preliminary Coding Level of Care Code Acute Code for Chg Fwd
--- NOTE | 2024-04-17 11:29 | P.DS_ITS ---
Discharge Providers Date of Admission: 04/14/24 17:33 Date of Discharge: April 17, 2024 Attending Provider at Admission: Angle Rizzo MD Attending Provider at Discharge: Angle Rizzo MD Primary Care Provider: KELLY Alva Diagnoses at Discharge Discharge Diagnosis (1) Anxiety: Status: Acute (2) Hypertension: Status: Acute (3) Upper GI bleeding: Status: Inactive (4) Constipation: Status: Acute (5) CKD (chronic kidney disease): Status: Chronic (6) Hypokalemia: Status: Resolved (7) Metabolic alkalosis with respiratory acidosis: Status: Resolved (8) Altered mental status: Status: Resolved (9) COPD (chronic obstructive pulmonary disease): Status: Acute Qualifiers: COPD type: COPD with acute exacerbation Qualified Code(s): J44.1 - Chronic obstructive pulmonary disease with (acute) exacerbation (10) Chronic hypercapnic respiratory failure: Status: Acute (11) Acute and chronic respiratory failure with hypercapnia: Status: Resolved (12) Acute exacerbation of chronic obstructive airways disease: Status: Resolved (13) Encounter for smoking cessation counseling: Status: Inactive Reason for Visit Reason for Visit: SOB Hospital Course Hospital Course Presented to the hospital with acute hypoxic hypercarbic respiratory failure requiring BiPAP. She is supposed to be on AVAPS at home however currently has a BiPAP machine. AVAPS was ordered quite sometime ago but insurance has not approved it yet. They are still waiting for trilogy. She was treated for pneumonia during this hospitalization and was back to baseline was discharged home. Patient will have trilogy set up upcoming Saturday. This has been arranged via psychiatric social worker. This is still pending approval. I informed the patient that she will get it this Saturday however if insurance does not go through they may have to take the machine away as I have been told by case management.. Patient aware of the situation. Patient will be discharged home on steroids and antibiotic. She is in agreement with the plan above. Discharged home in stable condition at this time. Electrolytes were severely low during hospitalization and she was given IV magnesium, IV phosphorus, IV potassium. Physical Exam Narrative: AO x3 appears euvolemic normal s1, s2, lungs clear to auscultation b/l with overall decreased aeration able to move all 4 extremities, no focal deficits Abdomen soft nontender currently on bipap Discharge Data Studies Completed and Pending Completed Studies During Hospitalization Category Date Time Status XR chest 1V portable [id number] Stat Exams 04/14/24 13:22 Completed Pending at discharge Category Date Time Status Sputum Culture and Gram Stain Stat Lab 04/14/24 18:06 Results Radiology Impressions Chest X-Ray 04/14/24 13:22 IMPRESSION: 1. No acute cardiopulmonary finding. Laboratory Results WBC 12.15 10^3/uL (3.29-11.43) H 04/16/24 05:29 RBC 3.32 10^6/uL (3.85-5.65) L 04/16/24 05:29 Hgb 10.10 g/dL (11.27-16.99) L 04/16/24 05:29 Hct 32.5 % (36-47) L 04/16/24 05:29 MCV 97.9 fl (85-98) 04/16/24 05:29 MCH 30.4 pg (27-33) 04/16/24 05:29 MCHC 31.1 g/dL (30-55) 04/16/24 05:29 RDW 14.0 % (12.1-15.1) 04/16/24 05:29 Plt Count 213 10^3/cmm (157-399) 04/16/24 05:29 MPV 11.6 fL (7.4-10.4) H 04/16/24 05:29 Neut % (Auto) 91.7 % 04/16/24 05:29 Lymph % (Auto) 4.1 % 04/16/24 05:29 Rogers % (Auto) 3.4 % 04/16/24 05:29 Eos % (Auto) 0.0 % 04/16/24 05:29 Baso % (Auto) 0.0 % 04/16/24 05:29 Neut # (Auto) 11.14 10^3/uL (1.8-7.7) H 04/16/24 05:29 Lymph # (Auto) 0.5 10^3/uL (0.8-4.8) L 04/16/24 05:29 Rogers # (Auto) 0.4 10^3/uL (0.2-0.9) 04/16/24 05:29 Eos # (Auto) 0.0 10^3/uL (0.0-0.8) 04/16/24 05:29 Baso # (Auto) 0.0 10^3/uL (0.0-0.1) 04/16/24 05:29 Nucleated RBC % (auto) 0.2 % 04/16/24 05:29 Nucleated RBCs # 0.0 /100WBC 04/16/24 05:29 D-Dimer 0.64 ug/mLFEU (0-0.59) H 04/14/24 19:46 Specimen Type Mixedvenous 04/15/24 04:58 Sample Site Radial, right 04/15/24 04:58 ABG pH 7.55 (7.35-7.45) H 04/15/24 04:58 ABG pCO2 56.6 mmHg (35-45) H 04/15/24 04:58 ABG pO2 48.2 mmHg (80.0-100.0) L 04/15/24 04:58 ABG PO2/FiO2 Ratio 80 04/15/24 04:58 ABG HCO3 55.1 mmol/L (22-26) H 04/15/24 04:58 ABG O2 Saturation 86.8 04/15/24 04:58 ABG Base Excess 29.6 mmol/L (-2.0-2.0) H 04/15/24 04:58 Braxton Test Pos 04/15/24 04:58 A-a O2 Gradient 40.6 mmHg (5-10) H 04/15/24 04:58 Hematocrit 32.7 % (37-47) L 04/15/24 04:58 Hgb O2 Saturation 85.1 % (95-100) L 04/15/24 04:58 Carboxyhemoglobin 0.9 %THgb (0.4-20.1) 04/15/24 04:58 Methemoglobin 1.0 % (0.4-1.5) 04/15/24 04:58 Total Hemoglobin 10.7 g/dL (12-16) L 04/15/24 04:58 Sodium 141.0 mmol/L (131-143) 04/15/24 04:58 Potassium 2.6 mmol/L (3.5-5.0) L 04/15/24 04:58 Glucose 133.0 mg/dL (70-115) H 04/15/24 04:58 Ionized Calcium 1.0 mmol/L (1.1-1.4) L 04/15/24 04:58 O2 Delivery Device Bipap 04/15/24 04:58 O2 Liters/Min 6.0 % 04/14/24 14:04 FiO2 60.0 % 04/15/24 04:58 Tidal Volume 0.40 04/15/24 04:58 PEEP 8.0 cmH20 04/15/24 04:58 Chain Mortiser Operator ID [id number] 04/15/24 04:58 Sodium 144 mmol/L (136-145) 04/16/24 21:16 Potassium 3.4 mmol/L (3.5-5.1) L 04/16/24 21:16 Chloride 93 mmol/L (98-107) L 04/16/24 21:16 Carbon Dioxide 41 mmol/L (22-29) H 04/16/24 21:16 Anion Gap 13.4 (5-19) 04/16/24 21:16 BUN 25 mg/dL (6-20) H 04/16/24 21:16 Creatinine 1.5 mg/dL (0.5-0.9) H 04/16/24 21:16 GFR Calculation 36.1 mL/min (90-130) L 04/16/24 21:16 Glucose 183 mg/dL (65-115) H 04/16/24 21:16 Calculated Osmolality 307 mOsm/kg (285-295) H 04/16/24 21:16 Calcium 8.5 mg/dL (8.5-10.5) 04/16/24 21:16 Phosphorus 1.5 mg/dL (2.5-4.5) L D 04/16/24 21:16 Magnesium 2.0 mg/dL (1.7-2.3) 04/16/24 08:15 Total Bilirubin 0.3 mg/dL (0.15-1.2) 04/14/24 13:40 AST 53 U/L (0-32) H 04/14/24 13:40 ALT 42 U/L (0-33) H 04/14/24 13:40 Alkaline Phosphatase 116 U/L (35-105) H 04/14/24 13:40 NT-Pro-B Natriuret Pep 7512 pg/mL (0-125) H 04/14/24 13:40 Total Protein 6.7 g/dL (6.6-8.7) 04/14/24 13:40 Albumin 4.2 g/dL (3.5-5.2) 04/14/24 13:40 Globulin 2.5 g/dL (1.3-4.6) 04/14/24 13:40 Procalcitonin 1.32 ng/mL (0-0.5) H 04/14/24 13:40 TSH 1.13 uIU/mL (0.27-4.20) 04/14/24 13:40 Nasal MRSA (PCR) Not detected (Not Detecte) 04/14/24 23:27 Coronavirus (PCR) Negative (Negative) 04/14/24 23:25 Influenza A (PCR) Negative (Negative) 04/14/24 23:25 Influenza Type B (PCR) Negative (Negative) 04/14/24 23:25 RSV (PCR) Negative (Negative) 04/14/24 23:25 Vitals Last Vital Signs Temp 97.9 F 04/17/24 08:00 Pulse 98 04/17/24 10:00 Resp 27 H 04/17/24 10:00 BP 107/65 04/17/24 10:00 Pulse Ox 90 04/17/24 10:00 O2 Del Method BiPAP 04/17/24 07:54 O2 Flow Rate 6 04/17/24 03:07 FiO2 40 04/17/24 07:55 Discharge Plan Discharge Patient Disposition: Home Condition: Stable Prescriptions: New magnesium oxide 400 mg (241.3 mg magnesium) Tablet 400 mg PO BID Qty: 10 0RF prednisone 20 mg tablet 40 mg PO DAILY 4 Days Qty: 12 0RF levofloxacin 750 mg tablet 750 mg PO DAILY 5 Days Qty: 5 0RF potassium chloride 20 mEq tablet extended release 20 meq PO DAILY Qty: 30 0RF Continued (DME) oxygen and concentrator See Rx Instructions .Route .MEDSUPPLY Qty: 1 0RF Rx Instructions: use 2L O2 via NC with exercise (DME) Portable oxygen concentrator See Rx Instructions .Route .MEDSUPPLY Qty: 1 0RF Rx Instructions: As directed (DME) Inspire Portable oxygen concentrator See Rx Instructions .Route .MEDSUPPLY Qty: 1 0RF Rx Instructions: Rate 4L O2 (DME) Portable Oxygen Concentrator 2-4L/NC See Rx Instructions .Route .MEDSUPPLY Qty: 1 0RF Rx Instructions: Continuous oxygen at 2-4L/NC. (DME) Portable Oxygen Concentrator 2-4L/NC 0 .Route .MEDSUPPLY budesonide-formoterol [Symbicort] 160-4.5 mcg/actuation HFA aerosol inhaler 2 inh inhalation BID Qty: 10.2 5RF tiotropium bromide [Spiriva with HandiHaler] 18 mcg capsule, w/inhalation device 1 cap inhalation DAILY Qty: 60 5RF Rx Instructions: puncture 1 cap using device; one dose = 2 inhalations albuterol sulfate 2.5 mg /3 mL (0.083 %) solution for nebulization 2.5 mg inhalation QID PRN (Reason: Shortness Of Breath Or Wheezing) Qty: 180 5RF albuterol sulfate [Ventolin HFA] 90 mcg/actuation HFA aerosol inhaler 2 puff inhalation QID PRN (Reason: Shortness Of Breath) Qty: 8.5 5RF bupropion HCl 150 mg tablet extended release 24 hr 150 mg PO QAM Qty: 30 3RF sucralfate 1 gram Tablet 1 g PO AC&BEDTIME Qty: 90 0RF pantoprazole 40 mg Tablet,Delayed Release (Dr/Ec) 40 mg PO BID Qty: 84 0RF furosemide 40 mg tablet 40 mg PO DAILY@0800 PRN (Reason: Edema) Qty: 30 3RF sennosides [Senna Lax] 8.6 mg Tablet 8.6 mg PO BID PRN (Reason: Constipation) ferrous gluconate 324 mg (37.5 mg iron) tablet 37.5 mg PO BIDWM Discharge Orders: Discharge Order (Routine); Ordered 04/17/24 Ordered By: Angle Rizzo Referrals: Bree George FNP [Primary Care Provider] - 4-7 days (We have notified your physician's clinic of the need for a follow-up appointment to be scheduled. If you have not heard from them within the next 2 business days, please call them directly. left message at desk also to call Estelle with this appointment) Discharge Diet: Cardiac Discharge Activity: Resume usual activity and Cpap/Bipap as instructed Patient Instructions: Prednisone (By mouth) (Prednisone Intensol, Prednicot, Deltasone, Reji), Levofloxacin (By mouth) (Levaquin, Levaquin Leva-sabina), Magnesium (By mouth), Using Oxygen at Home (DC), COPD (Chronic Obstructive Pulmonary Disease) (DC), Hypoxia (GEN), Metabolic Acidosis (GEN), COPD Stoplight, Opioid Safety Activity Restrictions/Additional Instructions: Please take potassium only the days you take your lasix pill otherwise skip it. Discharge Attestations Time Spent in Discharge Care*: greater than 30 min Status at Discharge: Cognitive status at discharge: cognitively intact , Behavioral status at discharge: cooperative , Quality Metrics Clinical Quality Measures [ No reported AMI, CVA or VTE this stay] Coding Level of Care Code Acute Code for Chg Fwd Diagnoses Anxiety F41.9 Hypertension I10 Upper GI bleeding K92.2 Constipation K59.00 CKD (chronic kidney disease) N18.9 Hypokalemia E87.6 Metabolic alkalosis with respiratory acidosis E87.4 Altered mental status R41.82 Chronic obstructive pulmonary disease with acute exacerbation J44.1 COPD type: COPD with acute exacerbation Chronic hypercapnic respiratory failure J96.12 Acute and chronic respiratory failure with hypercapnia J96.22 Acute exacerbation of chronic obstructive airways disease J44.1 Encounter for smoking cessation counseling Z71.6
== END 2024-04-17 14:31 | disposition home or self-care (01) | DRG 193 ==
LOC: ER 15:51 → MEDSURG 17:34 → ICU 18:29
PROVIDERS: Internal Medicine; Admitting Provider Internal Medicine; Emergency Provider Family Medicine; PCP Nurse Practitioner Family; Visit Provider Internal Medicine
DX: J18.9 Pneumonia, unspecified organism (principal); J96.21 Acute and chronic respiratory failure with hypoxia; J96.22 Acute and chronic respiratory failure with hypercapnia; J44.0 Chronic obstructive pulmonary disease with (acute) lower respiratory infection; K92.2 Gastrointestinal hemorrhage, unspecified; E87.29 Other acidosis; E87.3 Alkalosis; J44.1 Chronic obstructive pulmonary disease with (acute) exacerbation; I12.9 Hypertensive chronic kidney disease with stage 1 through stage 4 chronic kidney disease, or unspecified chronic kidney disease; N18.9 Chronic kidney disease, unspecified; K59.00 Constipation, unspecified; F41.9 Anxiety disorder, unspecified; E87.6 Hypokalemia; R41.82 Altered mental status, unspecified; Z91.199 Patient's noncompliance with other medical treatment and regimen due to unspecified reason; F17.210 Nicotine dependence, cigarettes, uncomplicated; K21.9 Gastro-esophageal reflux disease without esophagitis; Z86.73 Personal history of transient ischemic attack (TIA), and cerebral infarction without residual deficits; Z99.81 Dependence on supplemental oxygen
CPT/HCPCS: 0241U; 36415; 36600; 71045; 80048; 80051; 80053; 82330; 82805; 83735; 83880; 84100; 84145; 84443; 85025; 85378; 87070; 87205; 93005; 94640; 94660; 94664; 96361; 96372; 96374; 96375; 99291; J0696; J1644; J2543; J2919; J3370; J3475; J7030; J7050

== ENCOUNTER 2024-04-24 10:31 | Observation (INO) | payer MEDICAID, SELFPAY ==
[2024-04-24] VITALS (38 sets, daily range): BP systolic 95–142; BP diastolic 60–97; PULSE 73–109; RESP 16–32; TEMP 36.9–37.6; O2SAT 84–100; BMI 24.7
--- NOTE | 2024-04-24 10:36 | ECG_ITS ---
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 Measurements Intervals Helix Rate: 111 P: 62 IN: 135 QRS: 85 QRSD: 78 T: 76 QT: 255 QTc: 347 Interpretive Statements SINUS TACHYCARDIA NONSPECIFIC T-WAVE ABNORMALITY ABNORMAL RHYTHM ECG Compared to ECG 04/14/2024 18:09:45 T-wave abnormality now present Sinus rhythm no longer present Electronically Signed On 04-24-2024 19:47:56 RAT FARMER by Taya Villalta M.D. [email or web address]
--- NOTE | 2024-04-24 11:45 | XRR_ITS ---
PROCEDURE INFORMATION: Exam: XR Chest Exam date and time: 04/24/2024 11:49 AM Age: 53 years old Clinical indication: Condition or disease; Lung condition and disease; Copd; Complications not specified; Shortness of breath; Additional info: Dyspnea/cough TECHNIQUE: Imaging protocol: Radiologic exam of the chest. Views: 1 view. COMPARISON: CR XR chest 1V portable [id number] 04/14/2024 1:44 PM FINDINGS: Lungs: Unremarkable. No consolidation or mass. Pleural spaces: Unremarkable. No pleural effusion. No pneumothorax. Heart/Mediastinum: Unremarkable. No cardiomegaly. Bones/joints: Unremarkable. XR/XR chest 1V portable [id number] IMPRESSION: No acute findings.
--- NOTE | 2024-04-24 11:47 | ED_ITS ---
HPI - SOB/Dyspnea 2 General: Chief Complaint: Shortness of Breath/Dyspnea Stated Complaint: sob Time Seen by Provider: 04/24/24 11:42 History of Present Illness: HPI Narrative: 53-year-old female who presents to the mergency room complaining of shortness of breath that began this morning. Patient denies chest pain. She has severe COPD and normally wears 6 L/min by nasal cannula. She is satting well on her usual oxygen supplementation at this time. She is getting significant orthopnea no increase in swelling in her lower extremities. Associated symptoms: Reports chest congestion; Deny abdominal pain, chest pain or fever(s) Related Data Home Medications Medication Instructions Recorded Confirmed Portable Oxygen Concentrator 06/18/23 04/24/24 ferrous gluconate 324 mg (37.5 mg 37.5 mg PO BIDWM 07/18/23 04/24/24 iron) tablet sennosides 8.6 mg tablet (Senna 8.6 mg PO BID PRN Constipation 07/18/23 04/24/24 Lax) levofloxacin 750 mg tablet 750 mg PO Q5D 04/24/24 04/24/24 prednisone 20 mg tablet 40 mg PO DAILY 04/24/24 04/24/24 Previous Rx's Medication Instructions Recorded oxygen and concentrator #1 ea 03/03/20 Inspire Portable oxygen #1 ea 10/30/22 concentrator Portable oxygen concentrator #1 ea 10/30/22 Portable Oxygen Concentrator #1 ea 06/18/23 bupropion HCl 150 mg 24 hr tablet, 150 mg PO QAM #30 tabs 01/01/24 extended release furosemide 40 mg tablet 40 mg PO DAILY@0800 PRN Edema #30 03/12/24 tabs pantoprazole 40 mg tablet,delayed 40 mg PO BID #84 tabs 03/12/24 release sucralfate 1 gram tablet 1 g PO AC&BEDTIME #90 tabs 03/12/24 albuterol sulfate 2.5 mg/3 mL 2.5 mg (3 mL) inhalation QID PRN 03/20/24 (0.083 %) solution for nebulization Shortness Of Breath Or Wheezing #180 mL albuterol sulfate 90 mcg/actuation 2 puff inhalation QID PRN 03/20/24 aerosol inhaler (Ventolin HFA) Shortness Of Breath #8.5 grams budesonide-formoterol HFA 160 2 inh inhalation BID #10.2 grams 03/20/24 mcg-4.5 mcg/actuation aerosol inhaler (Symbicort) tiotropium bromide 18 mcg capsule 1 cap inhalation DAILY #60 03/20/24 with inhalation device (Spiriva inhalations with HandiHaler) magnesium oxide 400 mg (241.3 mg 400 mg PO BID #10 tabs 04/17/24 magnesium) tablet potassium chloride 20 mEq 20 meq PO DAILY #30 tabs 04/17/24 tablet,extended release Allergies Allergy/AdvReac Type Severity Reaction Status Date / Time hydrocodone Allergy ADR-Vomitin Verified 04/24/24 10:40 g tramadol Allergy ADR-Itching Verified 04/24/24 10:40 Review of Systems 2 Const: Denies: fever(s) or chills Card: Denies: chest pain Resp: Reports: dyspnea, wheezing and chest congestion GI: Denies: abdominal pain : Denies: dysuria, urinary frequency or urinary urgency Musc: Denies: neck pain or back pain Skin/Breast: Denies: rash PFSH ED 2 PFSH: Medical History Encounter for smoking cessation counseling Chronic hypercapnic respiratory failure Upper GI bleeding TIA (transient ischemic attack) Dependence on supplemental oxygen HTN (hypertension) Acute exacerbation of chronic obstructive airways disease Tenosynovitis of foot Fracture of fifth metatarsal bone of right foot Gastroesophageal reflux disease Hypertension Anxiety COPD (chronic obstructive pulmonary disease) Right ankle pain Right foot pain Surgical History Hx of tubal ligation History of tonsillectomy and adenoidectomy Hx of cholecystectomy Hx of hernia repair Hx of section Hx of colonoscopy (~2012) Family History Father Cancer lung Heart disease Mother Heart disease Social History Smoking and tobacco/nicotine status: current every day tobacco/nicotine user cigarettes Packs smoked per day: 1 Years cigarettes smoked: 45 Second hand smoke exposure: Yes Alcohol intake: former Former alcohol use details: sober x 20 yrs Substance/Drug Use: never Caregiver/support person: Yes Lives independently: Yes Household members: spouse and children Marital status: service: No Current occupational status: unemployed Current gender identity: Female Special lauryn needs: No Agree to transfusion: No Physical Exam 2 Const: GENERAL APPEARANCE: cooperative ORIENTATION/CONSCIOUSNESS: Yes awake, Yes oriented to person, Yes oriented to place and Yes oriented to time HENMT: COMMON NORMALS: normocephalic, atraumatic and hearing grossly normal bilaterally HEAD & SCALP: normocephalic and atraumatic Resp: COMMON NORMALS: normal respiratory effort, No retractions and No use of accessory muscles AUSCULTATION: rhonchi and wheezes Cardio: COMMON NORMALS: regular rate, regular rhythm and No murmurs present (Cardio) RATE: regular rate and tachycardic RHYTHM: regular rhythm GI: COMMON NORMALS: Soft to palpation and No hepatosplenomegaly present A USCULTATION: Yes normoactive bowel sounds PALPATION: Yes Soft to palpation, No Tenderness to palpation present (GI), No Guarding due to palpation present (GI) and Yes No hepatosplenomegaly present OTHER: Ecchymosis on the abdominal wall from previous Lovenox injections as an inpatient Extremity: COMMON NORMALS: normal to inspection, capillary refill normal, no clubbing, cyanosis or edema, no calf tenderness and no pedal edema Neuro: SENSORIUM/ORIENTATION: Yes oriented to person, Yes oriented to place and Yes oriented to time Skin: COMMON NORMALS: no rashes or lesions noted GENERAL SKIN EXAM: no rashes or lesions noted Course 2 Vital Signs: Vital signs: Vital Signs Temperature 99.6 F 04/24/24 10:34 Pulse Rate 105 H 04/24/24 14:30 Respiratory Rate 23 H 04/24/24 14:30 Blood Pressure 111/85 04/24/24 14:30 Pulse Oximetry 90 04/24/24 14:00 Oxygen Delivery Me thod BiPAP 04/24/24 13:30 Oxygen Flow Rate 6 04/24/24 12:30 Fraction of Inspir ed Oxygen 40 04/24/24 13:01 MDM - SOB/Dyspnea Medical Decision Making Acute hypercapnic respiratory failure with exacerbation of COPD will admit on BiPAP. Aggressive pulmonary toilet and steroids discussed with Dr. Diaz orders written Medical Records I reviewed the patient's medical records. Lab Data I reviewed the patient's lab results. 04/24/24 12:20 04/24/24 12:20 Labs/Radiology: Radiology Impressions Chest X-Ray 04/24/24 11:45 IMPRESSION: No acute findings. Laboratory Results WBC 10.45 10^3/uL (3.29-11.43) 04/24/24 12:20 RBC 3.69 10^6/uL (3.85-5.65) L 04/24/24 12:20 Hgb 11.10 g/dL (11.27-16.99) L 04/24/24 12:20 Hct 39.1 % (36-47) 04/24/24 12:20 MCV 106.0 fl (85-98) H 04/24/24 12:20 MCH 30.1 pg (27-33) 04/24/24 12:20 MCHC 28.4 g/dL (30-55) L 04/24/24 12:20 RDW 13.8 % (12.1-15.1) 04/24/24 12:20 Plt Count 188 10^3/cmm (157-399) 04/24/24 12:20 MPV 10.6 fL (7.4-10.4) H 04/24/24 12:20 Neut % (Auto) 71.2 % 04/24/24 12:20 Lymph % (Auto) 15.4 % 04/24/24 12:20 [place] % (Auto) 11.6 % 04/24/24 12:20 Eos % (Auto) 0.9 % 04/24/24 12:20 Baso % (Auto) 0.2 % 04/24/24 12:20 Neut # (Auto) 7.45 10^3/uL (1.8-7.7) 04/24/24 12:20 Lymph # (Auto) 1.6 10^3/uL (0.8-4.8) 04/24/24 12:20 [place] # (Auto) 1.2 10^3/uL (0.2-0.9) H 04/24/24 12:20 Eos # (Auto) 0.1 10^3/uL (0.0-0.8) 04/24/24 12:20 Baso # (Auto) 0.0 10^3/uL (0.0-0.1) 04/24/24 12:20 Nucleated RBC % (auto) 0 % 04/24/24 12:20 Nucleated RBCs # 0.0 /100WBC 04/24/24 12:20 Specimen Type Arterial 04/24/24 12:15 Sample Site Radial, left 04/24/24 12:15 ABG pH 7.40 (7.35-7.45) 04/24/24 12:15 ABG pCO2 92.8 mmHg (35-45) H* 04/24/24 12:15 ABG pO2 94.3 mmHg (80.0-100.0) 04/24/24 12:15 ABG HCO3 58.0 mmol/L (22-26) H 04/24/24 12:15 ABG O2 Saturation 98.4 04/24/24 12:15 ABG Base Excess 28.1 mmol/L (-2.0-2.0) H 04/24/24 12:15 Braxton Test Pos 04/24/24 12:15 A-a O2 Gradient Not Reportable 04/24/24 12:15 Hematocrit 34.3 % (37-47) L 04/24/24 12:15 Hgb O2 Saturation 95.3 % (95-100) 04/24/24 12:15 Carboxyhemoglobin 3.1 %THgb (0.4-20.1) 04/24/24 12:15 Methemoglobin 0.1 % (0.4-1.5) L 04/24/24 12:15 Total Hemoglobin 11.2 g/dL (12-16) L 04/24/24 12:15 Sodium 142.0 mmol/L (131-143) 04/24/24 12:15 Potassium 4.2 mmol/L (3.5-5.0) 04/24/24 12:15 Glucose 100.0 mg/dL (70-115) 04/24/24 12:15 Ionized Calcium 1.1 mmol/L (1.1-1.4) 04/24/24 12:15 O2 Delivery Device Nc 04/24/24 12:15 O2 Liters/Min 5.0 % 04/24/24 12:15 Motor Vehicle Representative ID [place] 04/24/24 12:15 Sodium 143 mmol/L (136-145) 04/24/24 12:20 Potassium 4.5 mmol/L (3.5-5.1) 04/24/24 12:20 Chloride 84 mmol/L (98-107) L 04/24/24 12:20 Carbon Dioxide > 53 mmol/L (22-29) H* 04/24/24 12:20 Anion Gap 10.5 (5-19) 04/24/24 12:20 BUN 10 mg/dL (6-20) 04/24/24 12:20 Creatinine 1.0 mg/dL (0.5-0.9) H 04/24/24 12:20 GFR Calculation 57.6 mL/min (90-130) L 04/24/24 12:20 Glucose 109 mg/dL (65-115) 04/24/24 12:20 Calculated Osmolality 296 mOsm/kg (285-295) H 04/24/24 12:20 Calcium 9.3 mg/dL (8.5-10.5) 04/24/24 12:20 Total Bilirubin 0.3 mg/dL (0.15-1.2) 04/24/24 12:20 AST 9 U/L (0-32) 04/24/24 12:20 ALT 11 U/L (0-33) 04/24/24 12:20 Alkaline Phosphatase 85 U/L (35-105) 04/24/24 12:20 NT-Pro-B Natriuret Pep 566 pg/mL (0-125) H 04/24/24 12:20 Total Protein 6.4 g/dL (6.6-8.7) L 04/24/24 12:20 Albumin 3.9 g/dL (3.5-5.2) 04/24/24 12:20 Globulin 2.5 g/dL (1.3-4.6) 04/24/24 12:20 All radiology interpretation(s) finalized by discharge Discharge Plan Discharge Patient Disposition: Placed in Observation Clinical Impression: Acute respiratory failure with hypoxia and hypercapnia, Acute exacerbation of chronic obstructive airways disease Condition: Stable Prescriptions: No Action (DME) oxygen and concentrator See Rx Instructions .Route .MEDSUPPLY Qty: 1 0RF Rx Instructions: use 2L O2 via NC with exercise (DME) Portable oxygen concentrator See Rx Instructions .Route .MEDSUPPLY Qty: 1 0RF Rx Instructions: As directed (DME) Inspire Portable oxygen concentrator See Rx Instructions .Route .MEDSUPPLY Qty: 1 0RF Rx Instructions: Rate 4L O2 (DME) Portable Oxygen Concentrator 2-4L/NC See Rx Instructions .Route .MEDSUPPLY Qty: 1 0RF Rx Instructions: Continuous oxygen at 2-4L/NC. (DME) Portable Oxygen Concentrator 2-4L/NC 0 .Route .MEDSUPPLY budesonide-formoterol [Symbicort] 160-4.5 mcg/actuation HFA aerosol inhaler 2 inh inhalation BID Qty: 10.2 5RF tiotropium bromide [Spiriva with HandiHaler] 18 mcg capsule, w/inhalation device 1 cap inhalation DAILY Qty: 60 5RF Rx Instructions: puncture 1 cap using device; one dose = 2 inhalations albuterol sulfate 2.5 mg /3 mL (0.083 %) solution for nebulization 2.5 mg inhalation QID PRN (Reason: Shortness Of Breath Or Wheezing) Qty: 180 5RF albuterol sulfate [Ventolin HFA] 90 mcg/actuation HFA aerosol inhaler 2 puff inhalation QID PRN (Reason: Shortness Of Breath) Qty: 8.5 5RF bupropion HCl 150 mg tablet extended release 24 hr 150 mg PO QAM Qty: 30 3RF sucralfate 1 gram Tablet 1 g PO AC&BEDTIME Qty: 90 0RF pantoprazole 40 mg Tablet,Delayed Release (Dr/Ec) 40 mg PO BID Qty: 84 0RF furosemide 40 mg tablet 40 mg PO DAILY@0800 PRN (Reason: Edema) Qty: 30 3RF sennosides [Senna Lax] 8.6 mg Tablet 8.6 mg PO BID PRN (Reason: Constipation) ferrous gluconate 324 mg (37.5 mg iron) tablet 37.5 mg PO BIDWM magnesium oxide 400 mg (241.3 mg magnesium) Tablet 400 mg PO BID Qty: 10 0RF potassium chloride 20 mEq tablet extended release 20 meq PO DAILY Qty: 30 0RF prednisone 20 mg tablet 40 mg PO DAILY levofloxacin 750 mg tablet 750 mg PO Q5D Referrals: Bree George, KELLY [Primary Care Provider] - Coding Level of Care Code ED Burn Crew Member for Vishal Badillo
[2024-04-24] MEDS: dexamethasone 10 mg/mL INJ IM (12:18)
[2024-04-24 12:26] LABS: ABG PCO2 92.8 mmHg (35-45); Arterial Blood Gas Hematocrit 34.3 % (37-47); Base Excess ABG 28.1 mmol/L (-2.0-2.0); Blood Gas Allen Test Pos; Blood Gas Operator Identificat WALCI; Blood Gas Sample Site Radial, left; Blood Gas Sample Type Arterial; Carboxyhemoglobin 3.1 %THgb (0.4-20.1); HGB O2 Sat 95.3 % (95-100); Ionized Calcium Level - ABG 1.1 mmol/L (1.1-1.4); Methemoglobin 0.1 % (0.4-1.5); Oxygen Device NC; Oxygen Saturation ABG 98.4; PO2 ABG 94.3 mmHg (80.0-100.0); Potassium Level - ABG 4.2 mmol/L (3.5-5.0); Total Hemoglobin 11.2 g/dL (12-16)
[2024-04-24 12:30] LABS: Basophils % 0.2 %; Eosinophils # 0.1 10^3/uL (0.0-0.8); Eosinophils % 0.9 %; Hematocrit 39.1 % (36-47); Lymphocytes # 1.6 10^3/uL (0.8-4.8); Lymphocytes % 15.4 %; Mean Corpuscular HGB Conc 28.4 g/dL (30-55); Mean Corpuscular Hemoglobin 30.1 pg (27-33); Mean Platelet Volume 10.6 fL (7.4-10.4); Monocytes # 1.2 10^3/uL (0.2-0.9); Monocytes % 11.6 %; Neutrophils # 7.45 10^3/uL (1.8-7.7); Neutrophils % 71.2 %; Nucleated Red Blood Cells % 0 %; Platelet Count 188 10^3/cmm (157-399); Red Blood Count 3.69 10^6/uL (3.85-5.65); Red Cell Distribution Width 13.8 % (12.1-15.1); White Blood Count 10.45 10^3/uL (3.29-11.43)
[2024-04-24] MEDS: ipratropium-albuterol 3 mL Neb INHALATION ×2 (12:30→19:56)
[2024-04-24 12:56] LABS: Alanine Aminotransferase 11 U/L (0-33); Albumin Level 3.9 g/dL (3.5-5.2); Alkaline Phosphatase 85 U/L (35-105); Aspartate Amino Transferase 9 U/L (0-32); Blood Urea Nitrogen 10 mg/dL (6-20); Calcium 9.3 mg/dL (8.5-10.5); Chloride 84 mmol/L (98-107); Creatinine Clr Calc Pharmacy 50.5172; Globulin 2.5 g/dL (1.3-4.6); Glomerular Filtration Rate 57.6 mL/min (90-130); Glucose 109 mg/dL (65-115); NT Pro B Type Natriuretic Pept 566 pg/mL (0-125); Osmolality Calculated 296 mOsm/kg (285-295); Potassium 4.5 mmol/L (3.5-5.1); Sodium 143 mmol/L (136-145); Total Bilirubin 0.3 mg/dL (0.15-1.2); Total Protein 6.4 g/dL (6.6-8.7)
--- NOTE | 2024-04-24 13:07 | PC.NURSE ---
PT REFUSED COVID/FLU/RSV SWAB.
[2024-04-24 13:41] LABS: Anion Gap 10.5 (5-19)
[2024-04-24 13:42] LABS: Carbon Dioxide > 53 mmol/L (22-29)
--- NOTE | 2024-04-24 17:03 | P.HP_ITS ---
Providers/Chief Complaint 2 Admitting Physician: Haider Velasco MD Primary Care Provider: KELLY Alva Chief Complaint: sob History of Present Illness Estelle Pascual is a 53 year old female with history of advanced COPD, active smoker smokes 6 cigarettes a day, 6 L of oxygen during the daytime , recently admitted here between 04/14-04/17. She was recommended to use a trelegy home vent at discharge and this was arranged at discharge. She received the machine this Saturday (today is Saturday) and started using it, however family and patient do not know if they have been using it correctly. It appears someone was to come over to help them set it up today but patient became increasingly SOB and was brought into the ER. Seh denies any chest pain or papitations. ABG showed significant hypercapnea with Pc02 90 and she was placed on AVAPS which she is continuing at the time of this assessment. She is currently alert and awake in spite of her high pco2. She was recently treated for pneumonia with levofloxacin. Review of Systems 2 General: Reports: 10 or more systems reviewed and unremarkable except in HPI and below Const: Denies: fever(s), chills or body aches Eyes: Denies: change in vision, blurry vision or photophobia ENMT: Reports: hoarseness; Denies: throat pain, enlarged tonsils, odynophagia or nasal congestion Card: Denies: chest pain, palpitations, irregular heart rhythm, edema, swelling of feet/ankles, lightheadedness, pre-syncope, dyspnea on exertion or orthopnea Resp: Denies: dyspnea, productive cough, non-productive cough, wheezing, stridor, pain on inspiration, change in phlegm color, hemoptysis or chest congestion GI: Denies: abdominal pain, nausea, vomiting, hematemesis, coffee ground emesis, dysphagia, heartburn, diarrhea, constipation, GI cramping, change in stool character, hematochezia or melena : Denies: flank pain, difficulty voiding, dysuria, urinary frequency, urinary urgency, urinary hesitancy or hematuria Musc: Denies: neck pain, back pain, extremity pain, joint swelling, joint warmth or deformity Neuro: Denies: headache(s), numbness in extremities, weakness in extremities, sensory changes, difficulty walking, frequent falls, dizziness, vertigo, behavioral changes, Slurred speech present or seizure-like activity Psych: Denies: anxiety, depression, suicidal ideation or homicidal ideation Endo: Denies: polyuria, polydipsia, tired all the time, cold intolerance or hot flashes [place]anner/Lymph: Denies: easy bruising or easy bleeding Medications/Allergies Home Medications Medication Instructions Recorded Confirmed Last Taken Type oxygen and concentrator #1 ea 03/03/20 04/24/24 Unknown Rx Inspire Portable oxygen #1 ea 10/30/22 04/24/24 Unknown Rx concentrator Portable oxygen concentrator #1 ea 10/30/22 04/24/24 Unknown Rx Portable Oxygen Concentrator 06/18/23 04/24/24 Unknown History Portable Oxygen Concentrator #1 ea 06/18/23 04/24/24 Unknown Rx ferrous gluconate 324 mg (37.5 mg 37.5 mg PO BIDWM 07/18/23 04/24/24 04/13/24 History iron) tablet sennosides 8.6 mg tablet (Senna 8.6 mg PO BID PRN Constipation 07/18/23 04/24/24 07/17/23 History Lax) bupropion HCl 150 mg 24 hr tablet, 150 mg PO QAM #30 tabs 01/01/24 04/24/24 04/13/24 Rx extended release furosemide 40 mg tablet 40 mg PO DAILY@0800 PRN Edema #30 03/12/24 04/24/24 Unknown Rx tabs pantoprazole 40 mg tablet,delayed 40 mg PO BID #84 tabs 03/12/24 04/24/24 04/13/24 Rx release sucralfate 1 gram tablet 1 g PO AC&BEDTIME #90 tabs 03/12/24 04/24/24 04/13/24 Rx albuterol sulfate 2.5 mg/3 mL 2.5 mg (3 mL) inhalation QID PRN 03/20/24 04/24/24 Unknown Rx (0.083 %) solution for nebulization Shortness Of Breath Or Wheezing #180 mL albuterol sulfate 90 mcg/actuation 2 puff inhalation QID PRN 03/20/24 04/24/24 Unknown Rx aerosol inhaler (Ventolin HFA) Shortness Of Breath #8.5 grams budesonide-formoterol HFA 160 2 inh inhalation BID #10.2 grams 03/20/24 04/24/24 04/13/24 Rx mcg-4.5 mcg/actuation aerosol inhaler (Symbicort) tiotropium bromide 18 mcg capsule 1 cap inhalation DAILY #60 03/20/24 04/24/24 04/13/24 Rx with inhalation device (Spiriva inhalations with HandiHaler) magnesium oxide 400 mg (241.3 mg 400 mg PO BID #10 tabs 04/17/24 04/24/24 Unknown Rx magnesium) tablet potassium chloride 20 mEq 20 meq PO DAILY #30 tabs 04/17/24 04/24/24 Unknown Rx tablet,extended release levofloxacin 750 mg tablet 750 mg PO Q5D 04/24/24 04/24/24 Unknown History prednisone 20 mg tablet 40 mg PO DAILY 04/24/24 04/24/24 Unknown History Allergies Allergy/AdvReac Type Severity Reaction Status Date / Time hydrocodone Allergy ADR-Vomitin Verified 04/24/24 10:40 g tramadol Allergy ADR-Itching Verified 04/24/24 10:40 PFSH Acute 2 PFSH: Medical History Encounter for smoking cessation counseling Chronic hypercapnic respiratory failure Upper GI bleeding TIA (transient ischemic attack) Dependence on supplemental oxygen HTN (hypertension) Acute exacerbation of chronic obstructive airways disease Tenosynovitis of foot Fracture of fifth metatarsal bone of right foot Gastroesophageal reflux disease Hypertension Anxiety COPD (chronic obstructive pulmonary disease) Right ankle pain Right foot pain Surgical History Hx of tubal ligation History of tonsillectomy and adenoidectomy Hx of cholecystectomy Hx of hernia repair Hx of section Hx of colonoscopy (~2012) Family History Father Cancer lung Heart disease Mother Heart disease Social History Smoking and tobacco/nicotine status: current every day tobacco/nicotine user cigarettes Packs smoked per day: 1 Years cigarettes smoked: 45 Second hand smoke exposure: Yes Alcohol intake: former Former alcohol use details: sober x 20 yrs Substance/Drug Use: never Caregiver/support person: Yes Lives independently: Yes Household members: spouse and children Marital status: service: No Current occupational status: unemployed Current gender identity: Female Special lauryn needs: No Agree to transfusion: No Vitals/I&O/Wt Last Vital Signs Temp 99.6 F 04/24/24 10:34 Pulse 104 H 04/24/24 16:16 Resp 23 H 04/24/24 14:30 BP 132/70 04/24/24 16:00 Pulse Ox 95 04/24/24 16:16 O2 Del Method BiPAP 04/24/24 13:30 O2 Flow Rate 6 04/24/24 12:30 FiO2 40 04/24/24 16:16 Weight last 48 hrs Weight 57.606 kg Physical Exam 2 Narrative: General: on Bipap, AO x3 HEENT: PERRLA, pupils bilaterally equal and reactive, pallors not present Chest: wheezing B/L CVS: S1-S2 regular, no murmurs, no tachycardia, no gallops, no rubs Abdomen: Soft, nontender, no organomegaly, bowel sounds present Neuro: No focal deficits, no facial deformity, AO x3, power 5/5 in all limbs Data 04/24/24 12:20 04/24/24 12:20 Other Labs: Radiology Impressions Chest X-Ray 04/24/24 11:45 IMPRESSION: No acute findings. Laboratory Results WBC 10.45 10^3/uL (3.29-11.43) 04/24/24 12:20 RBC 3.69 10^6/uL (3.85-5.65) L 04/24/24 12:20 Hgb 11.10 g/dL (11.27-16.99) L 04/24/24 12:20 Hct 39.1 % (36-47) 04/24/24 12:20 MCV 106.0 fl (85-98) H 04/24/24 12:20 MCH 30.1 pg (27-33) 04/24/24 12:20 MCHC 28.4 g/dL (30-55) L 04/24/24 12:20 RDW 13.8 % (12.1-15.1) 04/24/24 12:20 Plt Count 188 10^3/cmm (157-399) 04/24/24 12:20 MPV 10.6 fL (7.4-10.4) H 04/24/24 12:20 Neut % (Auto) 71.2 % 04/24/24 12:20 Lymph % (Auto) 15.4 % 04/24/24 12:20 [place] % (Auto) 11.6 % 04/24/24 12:20 Eos % (Auto) 0.9 % 04/24/24 12:20 Baso % (Auto) 0.2 % 04/24/24 12:20 Neut # (Auto) 7.45 10^3/uL (1.8-7.7) 04/24/24 12:20 Lymph # (Auto) 1.6 10^3/uL (0.8-4.8) 04/24/24 12:20 [place] # (Auto) 1.2 10^3/uL (0.2-0.9) H 04/24/24 12:20 Eos # (Auto) 0.1 10^3/uL (0.0-0.8) 04/24/24 12:20 Baso # (Auto) 0.0 10^3/uL (0.0-0.1) 04/24/24 12:20 Nucleated RBC % (auto) 0 % 04/24/24 12:20 Nucleated RBCs # 0.0 /100WBC 04/24/24 12:20 Specimen Type Arterial 04/24/24 12:15 Sample Site Radial, left 04/24/24 12:15 ABG pH 7.40 (7.35-7.45) 04/24/24 12:15 ABG pCO2 92.8 mmHg (35-45) H* 04/24/24 12:15 ABG pO2 94.3 mmHg (80.0-100.0) 04/24/24 12:15 ABG HCO3 58.0 mmol/L (22-26) H 04/24/24 12:15 ABG O2 Saturation 98.4 04/24/24 12:15 ABG Base Excess 28.1 mmol/L (-2.0-2.0) H 04/24/24 12:15 Braxton Test Pos 04/24/24 12:15 A-a O2 Gradient Not Reportable 04/24/24 12:15 Hematocrit 34.3 % (37-47) L 04/24/24 12:15 Hgb O2 Saturation 95.3 % (95-100) 04/24/24 12:15 Carboxyhemoglobin 3.1 %THgb (0.4-20.1) 04/24/24 12:15 Methemoglobin 0.1 % (0.4-1.5) L 04/24/24 12:15 Total Hemoglobin 11.2 g/dL (12-16) L 04/24/24 12:15 Sodium 142.0 mmol/L (131-143) 04/24/24 12:15 Potassium 4.2 mmol/L (3.5-5.0) 04/24/24 12:15 Glucose 100.0 mg/dL (70-115) 04/24/24 12:15 Ionized Calcium 1.1 mmol/L (1.1-1.4) 04/24/24 12:15 O2 Delivery Device Nc 04/24/24 12:15 O2 Liters/Min 5.0 % 04/24/24 12:15 Local Company Flatbed Truck Driver ID [place] 04/24/24 12:15 Sodium 143 mmol/L (136-145) 04/24/24 12:20 Potassium 4.5 mmol/L (3.5-5.1) 04/24/24 12:20 Chloride 84 mmol/L (98-107) L 04/24/24 12:20 Carbon Dioxide > 53 mmol/L (22-29) H* 04/24/24 12:20 Anion Gap 10.5 (5-19) 04/24/24 12:20 BUN 10 mg/dL (6-20) 04/24/24 12:20 Creatinine 1.0 mg/dL (0.5-0.9) H 04/24/24 12:20 GFR Calculation 57.6 mL/min (90-130) L 04/24/24 12:20 Glucose 109 mg/dL (65-115) 04/24/24 12:20 Calculated Osmolality 296 mOsm/kg (285-295) H 04/24/24 12:20 Calcium 9.3 mg/dL (8.5-10.5) 04/24/24 12:20 Total Bilirubin 0.3 mg/dL (0.15-1.2) 04/24/24 12:20 AST 9 U/L (0-32) 04/24/24 12:20 ALT 11 U/L (0-33) 12/20/24 12:20 Alkaline Phosphatase 85 U/L (35-105) 04/24/24 12:20 NT-Pro-B Natriuret Pep 566 pg/mL (0-125) H 04/24/24 12:20 Total Protein 6.4 g/dL (6.6-8.7) L 04/24/24 12:20 Albumin 3.9 g/dL (3.5-5.2) 04/24/24 12:20 Globulin 2.5 g/dL (1.3-4.6) 04/24/24 12:20 ABG Interpretation 1: 04/24/24 12:15 ABG pH 7.40 ABG pCO2 92.8 H* ABG pO2 94.3 ABG HCO3 58.0 H ABG O2 Saturation 98.4 ABG Base Excess 28.1 H A&P Assessment and plan (1) Acute respiratory failure with hypoxia and hypercapnia: (2) Acute exacerbation of chronic obstructive airways disease: Plan Admit to ICU in view of severe hypercapnia. Currently on AVAPS, appears to be clinically doing little bit better. Will repeat ABG. If CO2 is not improving, may need to intubate and use mechanical ventilation. Check respiratory viral panel Start steroids, methylprednisolone 40 mg IV every 8 hours Start duoneb q6h, budesonide q12h scheduled nebulization She has been on empiric antibiotics recently with levofloxacin. Recently treated for pneumonia. Chest x-ray today is without any gross infiltrates. Most recent sputum culture from 04/15/2024 with normal respiratory vivienne Flutter valve/spirometer at bedside Continue AVAPS. DVT ppx: lovenox 40 Attestations 2 Medical Necessity Statement*: less than 2 midnight stay anticipated at this time Coding Level of Care Code Acute Code for Chg Fwd Diagnoses Acute respiratory failure with hypoxia and hypercapnia J96.01; J96.02 Acute exacerbation of chronic obstructive airways disease J44.1
[2024-04-24 17:19] LABS: D Dimer 0.55 ug/mLFEU (0-0.59)
[2024-04-24 17:37] LABS: ABG PH Result 7.42 (7.35-7.45); Arterial Blood Gas Hematocrit 34.5 % (37-47); Base Excess ABG 27.6 mmol/L (-2.0-2.0); Blood Gas Allen Test Pos; Blood Gas Operator Identificat WALCI; Blood Gas Sample Site Brachial, left; Blood Gas Sample Type Arterial; Blood Gas Tidal Volume 0.45; HCO3 ABG 57.2 mmol/L (22-26); Oxygen Device BIPAP; PO2 ABG 66.7 mmHg (80.0-100.0); PO2 FiO2 Ratio Arterial Blood 166
[2024-04-24 17:40] LABS: ABG PCO2 89.4 mmHg (35-45)
[2024-04-24 17:44] LABS: Bilirubin Urine Negative (Negative); Blood Urine Negative (Negative); Glucose Urine UA Negative (Normal); Ketones Urine Negative (Negative); Leukocyte Esterase Urine Negative (Negative); Nitrate Urine Negative (Negative); Protein Urine Negative (Negative); Specific Gravity, Urine 1.009 (1.005-1.030); Urine Appearance Clear (CLEAR); Urine Color Yellow (Yellow); Urobilinogen Urine 0.2 mg/dL (Negative)
[2024-04-24 17:50] LABS: Add Urine Microscopic? YES; Bacteria Urine None Seen /hpf; RBC Urine 0-2 /hpf (0-2); Squamous Epithelial Cell Urine 0-5 /hpf (0-5); WBC Urine 0-5 /hpf (0-5)
[2024-04-24] MEDS: enoxaparin 40 mg/0.4 mL Syringe SUBCUT (18:23)
[2024-04-24] MEDS: pantoprazole DR 40 mg Tablet PO (18:24)
[2024-04-24] MEDS: magnesium oxide 400 mg tablet PO (18:24)
[2024-04-24] MEDS: methylPREDNISolone sod succ 40 mg/mL INJ IVP (18:24)
--- NOTE | 2024-04-24 19:34 | PC.NURSE ---
Received patient form ER staff at 1809. BP is 109/71. HR: 95, SPO2: 95, Temp: 99.0. Patient is oriented to person, place, time and situation.
[2024-04-24] MEDS: budesonide 0.5 mg/2 mL Neb INHALATION (19:56)
[2024-04-24] MEDS: sucralfate 1 gm Tablet PO (21:05)
[2024-04-24] MEDS: acetaZOLAMIDE 250 mg Tablet PO (21:05)
[2024-04-25] VITALS (19 sets, daily range): BP systolic 96–121; BP diastolic 55–83; PULSE 87–115; RESP 16–34; TEMP 36.1–37.4; O2SAT 80–97; BMI 24.7
[2024-04-25] MEDS: methylPREDNISolone sod succ 40 mg/mL INJ IVP ×2 (01:44→09:26)
[2024-04-25] MEDS: ipratropium-albuterol 3 mL Neb INHALATION ×3 (02:37→13:33)
[2024-04-25 03:55] LABS: Basophils % 0.1 %; Hematocrit 36.1 % (36-47); Lymphocytes # 0.7 10^3/uL (0.8-4.8); Lymphocytes % 9.4 %; Mean Corpuscular HGB Conc 30.5 g/dL (30-55); Mean Corpuscular Hemoglobin 30.6 pg (27-33); Mean Corpuscular Volume 100.6 fl (85-98); Mean Platelet Volume 10.8 fL (7.4-10.4); Monocytes # 0.1 10^3/uL (0.2-0.9); Monocytes % 1.7 %; Neutrophils # 6.87 10^3/uL (1.8-7.7); Neutrophils % 88.2 %; Nucleated Red Blood Cells % 0 %; Platelet Count 185 10^3/cmm (157-399); Red Blood Count 3.59 10^6/uL (3.85-5.65); Red Cell Distribution Width 13.8 % (12.1-15.1); White Blood Count 7.79 10^3/uL (3.29-11.43)
[2024-04-25 04:15] LABS: Alanine Aminotransferase 9 U/L (0-33); Albumin Level 3.6 g/dL (3.5-5.2); Alkaline Phosphatase 81 U/L (35-105); Anion Gap 11.2 (5-19); Aspartate Amino Transferase 7 U/L (0-32); Blood Urea Nitrogen 16 mg/dL (6-20); Calcium 9.5 mg/dL (8.5-10.5); Chloride 85 mmol/L (98-107); Creatinine Clr Calc Pharmacy 45.7036; Globulin 2.6 g/dL (1.3-4.6); Glomerular Filtration Rate 51.6 mL/min (90-130); Glucose 174 mg/dL (65-115); Osmolality Calculated 291 mOsm/kg (285-295); Potassium 4.2 mmol/L (3.5-5.1); Sodium 138 mmol/L (136-145); Total Bilirubin 0.3 mg/dL (0.15-1.2); Total Protein 6.2 g/dL (6.6-8.7)
[2024-04-25 04:30] LABS: Carbon Dioxide 46 mmol/L (22-29)
[2024-04-25] MEDS: buPROPion XL (24 HR) 150 mg Tablet PO (06:29)
[2024-04-25] MEDS: sucralfate 1 gm Tablet PO ×2 (06:29→11:20)
[2024-04-25] MEDS: budesonide 0.5 mg/2 mL Neb INHALATION (08:39)
[2024-04-25] MEDS: pantoprazole DR 40 mg Tablet PO (09:26)
[2024-04-25] MEDS: magnesium oxide 400 mg tablet PO (09:26)
[2024-04-25 11:14] LABS: ABG PH Result 7.48 (7.35-7.45); Arterial Blood Gas Hematocrit 34.2 % (37-47); Base Excess ABG 20.5 mmol/L (-2.0-2.0); Blood Gas Allen Test Pos; Blood Gas Operator Identificat GD; Blood Gas Sample Site Radial, right; Blood Gas Sample Type Arterial; HCO3 ABG 47.1 mmol/L (22-26); Oxygen Device NC; PO2 ABG 57.4 mmHg (80.0-100.0); PO2 FiO2 Ratio Arterial Blood 130
--- NOTE | 2024-04-25 12:35 | PC.NURSE ---
Dr. Bailey to bedside, plan of care discussed. Daughter called to see how frequently patient takes lasix at home, daughter reports that she is taking it every day. Instructed daughter to call the company that is taking care of the trilogy at home to find out when they will be able to come out and adjust the machine. Updated Dr. Bailey on this.
--- NOTE | 2024-04-25 12:50 | P.DS_ITS ---
Discharge Providers Date of Admission: 04/24/24 15:51 Date of Discharge: April 25, 2024 Attending Provider at Admission: Haider Velasco MD Attending Provider at Discharge: Christina Bailey MD Primary Care Provider: KELLY Alva Diagnoses at Discharge Discharge Diagnosis (1) Acute respiratory failure with hypoxia and hypercapnia: Status: Acute (2) Acute exacerbation of chronic obstructive airways disease: Status: Acute Reason for Visit Reason for Visit: sob Hospital Course Hospital Course Estelle Pascual is a 53 year old female with history of advanced COPD, active smoker smokes 6 cigarettes a day, 6 L of oxygen during the daytime , recently admitted here between 04/14-04/17. She was recommended to use a trelegy home vent at discharge and this was arranged at discharge. She received the machine this Saturday (today is Saturday) and started using it, however family and patient do not know if they have been using it correctly. It appears someone was to come over to help them set it up today but patient became increasingly SOB and presented into the emergency room. ABG showed significant hypercapnia with pCO2 of 90. There was also evidence of metabolic alkalosis with bicarb greater than 53. She has been taking Lasix 40 mg p.o. daily at home. Patient was alert and awake. She was started on BiPAP ventilation. SHe received Diamox 250 mg x 1 which improved her bicarb from 53-->46. Today her ABG is improved, pH is at 7.48, pCO2 of 63, pO2 of 57.4, bicarb 47 on ABG. Given that there is some degree of metabolic alkalosis associated here, dose of Lasix has been reduced to 20 mg p.o. daily. Additionally Diamox has been ordered every third day. Recommended to follow-up with primary care provider in the next week for repeat CMP and to reassess if any further dose adjustments need to be made. Patient is today alert awake oriented. She is back to her usual baseline. She is being discharged home with her daughter in improved condition. Physical Exam Narrative: General: No acute distress, AO x3 HEENT: PERRLA, pupils bilaterally equal and reactive, pallors not present Chest: Normal vesicular breath sounds, no added sounds, equal good air entry bilaterally CVS: S1-S2 regular, no murmurs, no tachycardia, no gallops, no rubs Abdomen: Soft, nontender, no organomegaly, bowel sounds present Neuro: awake, alert and oriented x 3 Discharge Data Studies Completed and Pending Completed Studies During Hospitalization Category Date Time Status XR chest 1V portable [id number] Stat Exams 04/24/24 11:45 Completed Pending at discharge Category Date Time Status Covid / Flu / RSV PCR Stat Lab 04/24/24 11:46 Uncollected Respiratory Panel 2 Routine Lab 04/24/24 16:59 Uncollected Radiology Impressions Chest X-Ray 04/24/24 11:45 IMPRESSION: No acute findings. Laboratory Results WBC 7.79 10^3/uL (3.29-11.43) 04/25/24 03:31 RBC 3.59 10^6/uL (3.85-5.65) L 04/25/24 03:31 Hgb 11.00 g/dL (11.27-16.99) L 04/25/24 03:31 Hct 36.1 % (36-47) 04/25/24 03:31 MCV 100.6 fl (85-98) H D 04/25/24 03:31 MCH 30.6 pg (27-33) 04/25/24 03:31 MCHC 30.5 g/dL (30-55) D 04/25/24 03:31 RDW 13.8 % (12.1-15.1) 04/25/24 03:31 Plt Count 185 10^3/cmm (157-399) 04/25/24 03:31 MPV 10.8 fL (7.4-10.4) H 04/25/24 03:31 Neut % (Auto) 88.2 % 04/25/24 03:31 Lymph % (Auto) 9.4 % 04/25/24 03:31 Lamb % (Auto) 1.7 % 04/25/24 03:31 Eos % (Auto) 0.0 % 04/25/24 03:31 Baso % (Auto) 0.1 % 04/25/24 03:31 Neut # (Auto) 6.87 10^3/uL (1.8-7.7) 04/25/24 03:31 Lymph # (Auto) 0.7 10^3/uL (0.8-4.8) L 04/25/24 03:31 Lamb # (Auto) 0.1 10^3/uL (0.2-0.9) L 04/25/24 03:31 Eos # (Auto) 0.0 10^3/uL (0.0-0.8) 04/25/24 03:31 Baso # (Auto) 0.0 10^3/uL (0.0-0.1) 04/25/24 03:31 Nucleated RBC % (auto) 0 % 04/25/24 03:31 Nucleated RBCs # 0.0 /100WBC 04/25/24 03:31 D-Dimer 0.55 ug/mLFEU (0-0.59) 04/24/24 12:20 Specimen Type Arterial 04/25/24 11:00 Sample Site Radial, right 04/25/24 11:00 ABG pH 7.48 (7.35-7.45) H 04/25/24 11:00 ABG pCO2 63.0 mmHg (35-45) H* 04/25/24 11:00 ABG pO2 57.4 mmHg (80.0-100.0) L 04/25/24 11:00 ABG PO2/FiO2 Ratio 130 04/25/24 11:00 ABG HCO3 47.1 mmol/L (22-26) H 04/25/24 11:00 ABG O2 Saturation 98.4 04/24/24 12:15 ABG Base Excess 20.5 mmol/L (-2.0-2.0) H 04/25/24 11:00 Rbaxton Test Pos 04/25/24 11:00 A-a O2 Gradient Not Reportable 04/24/24 12:15 Hematocrit 34.2 % (37-47) L 04/25/24 11:00 Hgb O2 Saturation 95.3 % (95-100) 04/24/24 12:15 Carboxyhemoglobin 3.1 %THgb (0.4-20.1) 04/24/24 12:15 Methemoglobin 0.1 % (0.4-1.5) L 04/24/24 12:15 Total Hemoglobin 11.2 g/dL (12-16) L 04/24/24 12:15 Sodium 142.0 mmol/L (131-143) 04/24/24 12:15 Potassium 4.2 mmol/L (3.5-5.0) 04/24/24 12:15 Glucose 100.0 mg/dL (70-115) 04/24/24 12:15 Ionized Calcium 1.1 mmol/L (1.1-1.4) 04/24/24 12:15 O2 Delivery Device Nc 04/25/24 11:00 O2 Liters/Min 6.0 % 04/25/24 11:00 FiO2 44.0 % 04/25/24 11:00 Tidal Volume 0.45 04/24/24 17:25 PEEP 5.0 cmH20 04/24/24 17:25 Principal Solutions Architect ID Gd 04/25/24 11:00 Sodium 138 mmol/L (136-145) 04/25/24 03:31 Potassium 4.2 mmol/L (3.5-5.1) 04/25/24 03:31 Chloride 85 mmol/L (98-107) L 04/25/24 03:31 Carbon Dioxide 46 mmol/L (22-29) H* 04/25/24 03:31 Anion Gap 11.2 (5-19) 04/25/24 03:31 BUN 16 mg/dL (6-20) 04/25/24 03:31 Creatinine 1.1 mg/dL (0.5-0.9) H 04/25/24 03:31 GFR Calculation 51.6 mL/min (90-130) L 04/25/24 03:31 Glucose 174 mg/dL (65-115) H 04/25/24 03:31 Calculated Osmolality 291 mOsm/kg (285-295) 04/25/24 03:31 Calcium 9.5 mg/dL (8.5-10.5) 04/25/24 03:31 Total Bilirubin 0.3 mg/dL (0.15-1.2) 04/25/24 03:31 AST 7 U/L (0-32) 04/25/24 03:31 ALT 9 U/L (0-33) 04/25/24 03:31 Alkaline Phosphatase 81 U/L (35-105) 04/25/24 03:31 NT-Pro-B Natriuret Pep 566 pg/mL (0-125) H 04/24/24 12:20 Total Protein 6.2 g/dL (6.6-8.7) L 04/25/24 03:31 Albumin 3.6 g/dL (3.5-5.2) 04/25/24 03:31 Globulin 2.6 g/dL (1.3-4.6) 04/25/24 03:31 Urine Color Yellow (Yellow) 04/24/24 16:40 Urine Appearance Clear (CLEAR) 04/24/24 16:40 Urine pH 8.0 (5-7) A 04/24/24 16:40 Ur Specific [place] 1.009 (1.005-1.030) 04/24/24 16:40 Urine Protein Negative (Negative) 04/24/24 16:40 Urine Glucose (UA) Negative (Normal) 04/24/24 16:40 Urine Ketones Negative (Negative) 04/24/24 16:40 Urine Blood Negative (Negative) 04/24/24 16:40 Urine Nitrate Negative (Negative) 04/24/24 16:40 Urine Bilirubin Negative (Negative) 04/24/24 16:40 Urine Urobilinogen 0.2 mg/dL (Negative) 04/24/24 16:40 Ur Leukocyte Esterase Negative (Negative) 04/24/24 16:40 Urine RBC 0-2 /hpf (0-2) 04/24/24 16:40 Urine WBC 0-5 /hpf (0-5) 04/24/24 16:40 Ur Squamous Epith Cells 0-5 /hpf (0-5) 04/24/24 16:40 Urine Bacteria None seen /hpf (NONE) 04/24/24 16:40 Hyaline Casts 0.40 /lpf 04/24/24 16:40 Vitals Last Vital Signs Temp 98.9 F 04/25/24 12:00 Pulse 94 04/25/24 12:00 Resp 27 H 04/25/24 12:00 BP 101/62 04/25/24 12:00 Pulse Ox 90 04/25/24 12:00 O2 Del Method Nasal Cannula 04/25/24 12:00 O2 Flow Rate 6 04/25/24 12:00 FiO2 40 04/25/24 04:00 Discharge Plan Discharge Patient Disposition: Home Condition: Stable Prescriptions: New acetazolamide 250 mg tablet 250 mg PO .sat and Qty: 10 0RF Rx Instructions: take one pill daily on saturday and Continued (DME) oxygen and concentrator See Rx Instructions .Route .MEDSUPPLY Qty: 1 0RF Rx Instructions: use 2L O2 via NC with exercise (DME) Portable oxygen concentrator See Rx Instructions .Route .MEDSUPPLY Qty: 1 0RF Rx Instructions: As directed ([facility]) Inspire Portable oxygen concentrator See Rx Instructions .Route .MEDSUPPLY Qty: 1 0RF Rx Instructions: Rate 4L O2 (DME) Portable Oxygen Concentrator 2-4L/NC See Rx Instructions .Route .MEDSUPPLY Qty: 1 0RF Rx Instructions: Continuous oxygen at 2-4L/NC. (DME) Portable Oxygen Concentrator 2-4L/NC 0 .Route .MEDSUPPLY budesonide-formoterol [Symbicort] 160-4.5 mcg/actuation HFA aerosol inhaler 2 inh inhalation BID Qty: 10.2 5RF tiotropium bromide [Spiriva with HandiHaler] 18 mcg capsule, w/inhalation device 1 cap inhalation DAILY Qty: 60 5RF Rx Instructions: puncture 1 cap using device; one dose = 2 inhalations albuterol sulfate 2.5 mg /3 mL (0.083 %) solution for nebulization 2.5 mg inhalation QID PRN (Reason: Shortness Of Breath Or Wheezing) Qty: 180 5RF albuterol sulfate [Ventolin HFA] 90 mcg/actuation HFA aerosol inhaler 2 puff inhalation QID PRN (Reason: Shortness Of Breath) Qty: 8.5 5RF bupropion HCl 150 mg tablet extended release 24 hr 150 mg PO QAM Qty: 30 3RF sucralfate 1 gram Tablet 1 g PO AC&BEDTIME Qty: 90 0RF pantoprazole 40 mg Tablet,Delayed Release (Dr/Ec) 40 mg PO BID Qty: 84 0RF sennosides [Senna Lax] 8.6 mg Tablet 8.6 mg PO BID PRN (Reason: Constipation) ferrous gluconate 324 mg (37.5 mg iron) tablet 37.5 mg PO BIDWM magnesium oxide 400 mg (241.3 mg magnesium) Tablet 400 mg PO BID Qty: 10 0RF potassium chloride 20 mEq tablet extended release 20 meq PO DAILY Qty: 30 0RF prednisone 20 mg tablet 40 mg PO DAILY levofloxacin 750 mg tablet 750 mg PO Q5D Changed furosemide 40 mg tablet 20 mg PO DAILY@0800 Qty: 30 3RF Discharge Orders: Discharge Order (Routine); Ordered 04/25/24 Ordered By: Christina Bailey Referrals: Bree George, SENIOR INFORMATION SECURITY ANALYST [Primary Care Provider] - 7-10 days (recheck CMP, started acetazolamide fo rmetabolic alkalosis with lasix , hospital discharge follow up ) Patient Instructions: Opioid Safety Discharge Attestations Time Spent in Discharge Care*: greater than 30 min Status at Discharge: Cognitive status at discharge: cognitively intact , Behavioral status at discharge: cooperative , Quality Metrics Clinical Quality Measures [ No reported AMI, CVA or VTE this stay] Coding Level of Care Code Acute Code for Chg Fwd Diagnoses Acute respiratory failure with hypoxia and hypercapnia J96.01; J96.02 Acute exacerbation of chronic obstructive airways disease J44.1
[2024-04-25] MEDS: acetaZOLAMIDE 250 mg Tablet PO (13:04)
--- NOTE | 2024-04-25 15:22 | PC.NURSE ---
Rickie called into [facility] in [place] for patients discharge.
--- NOTE | 2024-04-25 15:49 | PC.NURSE ---
Discharged patient to home with and daughter. Discharge education done.
== END 2024-04-25 15:41 | disposition home or self-care (01) ==
LOC: ER 15:41 → ICU 15:51
PROVIDERS: Admitting Provider Student in an Organized Health Care Education/Training Program; Emergency Provider Family Medicine; PCP Nurse Practitioner Family; Visit Provider Student in an Organized Health Care Education/Training Program
DX: J96.01 Acute respiratory failure with hypoxia (principal); J96.02 Acute respiratory failure with hypercapnia; J44.1 Chronic obstructive pulmonary disease with (acute) exacerbation; J44.9 Chronic obstructive pulmonary disease, unspecified; F17.210 Nicotine dependence, cigarettes, uncomplicated; Z99.81 Dependence on supplemental oxygen; Z86.73 Personal history of transient ischemic attack (TIA), and cerebral infarction without residual deficits; I10 Essential (primary) hypertension; F41.9 Anxiety disorder, unspecified
CPT/HCPCS: 36415; 36600; 71045; 80051; 80053; 81001; 82330; 82803; 82805; 83880; 85025; 85378; 93005; 94640; 94660; 96372; 96374; 96376; 99291; G0378; J1100; J1650; J2919; J7626

== ENCOUNTER → 2024-07-09 11:02 | Outpatient (BNVA) | payer MEDICAID, SELFPAY | PROVIDERS: PCP Family Medicine; Visit Provider Family Medicine | DX: J44.1 Chronic obstructive pulmonary disease with (acute) exacerbation (principal); J96.12 Chronic respiratory failure with hypercapnia; N18.9 Chronic kidney disease, unspecified; D64.9 Anemia, unspecified; D75.89 Other specified diseases of blood and blood-forming organs | CPT/HCPCS: 80053; 82607; 82728; 83540; 83735; 85025 ==

== ENCOUNTER 2024-07-17 16:20 | Inpatient (IN) | payer MEDICAID, SELFPAY ==
[2024-07-17] VITALS (26 sets, daily range): BP systolic 83–148; BP diastolic 59–104; PULSE 83–97; RESP 14–33; TEMP 36.5–36.8; O2SAT 91–100; BMI 24.7
--- NOTE | 2024-07-17 16:24 | ECG_ITS ---
Currently [employer] Test Date: 2024-07-17 Pat Name: Estelle Pascual Department: Room: Gender: Female [employer]er: : 1970 Requested By: Lo Son Order Number: [id number] Tawanda MD: Irwin Barahona M.D. Measurements Intervals [place] Rate: 83 P: 93 [place]: 138 QRS: 102 QRSD: 85 T: 49 QT: 352 QTc: 415 Interpretive Statements SINUS RHYTHM ARM LEADS REVERSED [INVERTED P AND QRS IN I] Compared to ECG 04/24/2024 10:36:00 Sinus tachycardia no longer present T-wave abnormality no longer present Electronically Signed On 07-17-2024 19:00:48 CDT by Irwin Barahona M.D. [email or web address]
--- NOTE | 2024-07-17 16:25 | XRR_ITS ---
PROCEDURE INFORMATION: Exam: XR Chest Exam date and time: 07/17/2024 4:34 PM Age: 53 years old Clinical indication: Dyspnea; Additional info: SOB TECHNIQUE: Imaging protocol: Radiologic exam of the chest. Views: 1 view. COMPARISON: CR XR chest 1V portable [id number] 04/24/2024 11:49 AM FINDINGS: Lungs: Unremarkable. No consolidation. Pleural spaces: Unremarkable. No pleural effusion. No pneumothorax. Heart/Mediastinum: Unremarkable. No cardiomegaly. Bones/joints: Unremarkable. XR/XR chest 1V portable [id number] IMPRESSION: No acute findings.
--- NOTE | 2024-07-17 16:48 | XRR_ITS ---
PROCEDURE INFORMATION: Exam: XR Lumbosacral Spine Exam date and time: 07/17/2024 4:48 PM Age: 53 years old Clinical indication: Lumbago; Lower back pain post fall TECHNIQUE: Imaging protocol: Radiologic exam of the lumbosacral spine. Views: 2 or 3 views. COMPARISON: No relevant prior studies available. FINDINGS: Bones/joints: No acute fracture. Normal alignment. Soft tissues: Unremarkable. XR/XR lumbar spine 2-3V* [id number] IMPRESSION: No acute findings.
--- NOTE | 2024-07-17 16:49 | ED_ITS ---
Documented by User: GHAZALA Wagoner 07/19/24 13:03 HPI - Fall 2 General: Chief Complaint: Back Pain/Injury Stated Complaint: SOB Time Seen by Provider: 07/17/24 16:37 Source: patient Mode of arrival: wheelchair Limitations: no limitations History of Present Illness: Patient is a 53-year-old female presents to ED today complaining of lower back pain following a fall. Patient states she has had balance issues over the past 4 to 5 months and states she fell because she lost her balance this morning. She states she struck her lower back and has had pain since. She also states since the fall she has had the shakes/tremors . Patient arrives on roughly 4 L of oxygen. She states she normally wears anywhere from 6 to 8 L for her COPD. She does appear slightly drowsy. States she has not been sleeping well at night. She denies striking her head during the fall. She denies neck pain. MD complaint: fall Onset (ago): hour(s) Fall from: standing Fall witnessed: no Place fall occurred: home Loss of consciousness: None Prolonged down time: no Symptoms prior to fall: other (lost balance) Context: tripped/slipped Location of injury: back Severity: moderate Associated symptoms-after fall: Reports no associated symptoms; Denies abdominal pain, chest pain, headache(s), hematuria, lightheadedness or neck pain Related Data Home Medications ?Medication ?Instructions ?Recorded ?Confirmed sennosides 8.6 mg tablet (Senna 8.6 mg PO BID PRN Cons tipation 07/18/23 07/18/24 Lax) Previous Rx's ?Medication ?Instructions ?Recorded Portable Oxygen Concentrator #1 ea 06/18/23 bupropion HCl 150 mg 24 hr tablet, 150 mg PO QAM #30 t abs 01/01/24 extended release pantoprazole 40 mg tablet,delayed 40 mg PO BID #84 tab s 03/12/24 release albuterol sulfate 2.5 mg/3 mL 2.5 mg (3 mL) inhalation QID PRN 03/20/24 (0.083 %) solution for nebulization Shortness Of Breat h Or Wheezing #180 mL albuterol sulfate 90 mcg/actuation 2 puff inhalation Q ID PRN 03/20/24 aerosol inhaler (Ventolin HFA) Shortness Of Breath #8. 5 grams budesonide-formoterol HFA 160 2 inh inhalation BID #10 .2 grams 03/20/24 mcg-4.5 mcg/actuation aerosol inhaler (Symbicort) tiotropium bromide 18 mcg capsule 1 cap inhalation JOSE LY #60 03/20/24 with inhalation device (Spiriva inhalations with HandiHaler) furosemide 40 mg tablet 20 mg (1/2 x 40 mg) PO DAILY @0800 04/25/24 Edema #30 tabs potassium chloride 20 mEq See Rx Instructions .Route 0 06/11/24 tablet,extended release(part/cryst) .COMPLEX #30 tabs varenicline tartrate 0.5 mg (11)-1 See Rx Instructions PO PER PKG DIR 07/09/24 mg (42) tablets in a dose pack #53 ea (Chantix Starting Month Box) Allergies Allergy/AdvReac Type Severity Reaction Status Date / Time hydrocodone Allergy ADR-Vomitin Verified 07/09/24 09:08 g tramadol Allergy ADR-Itching Verified 07/09/24 09:08 Review of Systems 2 Const: Denies: fever(s), chills, body aches, fatigue or malaise Card: Denies: chest pain, palpitations, irregular heart rhythm, edema or lightheadedness Resp: Reports: dyspnea (chronic-reports this is at baseline); Denies: pain on inspiration GI: Denies: abdominal pain : Denies: flank pain or hematuria Musc: Reports: back pain; Denies: neck pain, extremity pain, extremity swelling, joint pain or joint swelling Skin/Breast: Denies: rash Neuro: Denies: headache(s) PFS ED 2 PFSH: Medical History Encounter for smoking cessation counseling Chronic hypercapnic respiratory failure Upper GI bleeding TIA (transient ischemic attack) Dependence on supplemental oxygen HTN (hypertension) Acute exacerbation of chronic obstructive airways disease Tenosynovitis of foot Fracture of fifth metatarsal bone of right foot Gastroesophageal reflux disease Hypertension Anxiety COPD (chronic obstructive pulmonary disease) Right ankle pain Right foot pain Surgical History Hx of tubal ligation History of tonsillectomy and adenoidectomy Hx of cholecystectomy Hx of hernia repair Hx of section Hx of colonoscopy (~2012) Family History Father Cancer lung Heart disease Mother Heart disease Social History Smoking and tobacco/nicotine status: current every day tobacco/nicotine user cigarettes Packs smoked per day: 1 Years cigarettes smoked: 45 Second hand smoke exposure: Yes Alcohol intake: former Former alcohol use details: sober x 20 yrs Substance/Drug Use: never Caregiver/support person: Yes Lives independently: Yes Household members: spouse and children Marital status: service: No Current occupational status: unemployed Current gender identity: Female Special lauryn needs: No Agree to transfusion: No Physical Exam 2 Const: COMMON NORMALS: patient oriented x3 and alert GENERAL APPEARANCE: c ooperative and appears older than stated age ORIENTATION/CONSCIOUSNESS: Yes awake, Yes oriented to person, Yes oriented to place and Yes oriented to time OTHER: drowsy-closing her eyes often; does open and will minimally respond to some questioning-answers other questions normally mild spasticity of movements HENMT: COMMON NORMALS: normocephalic and atraumatic HEAD & SCALP: normal to inspection, normocephalic and atraumatic FACE & SINUS: normal facial exam Eye: GENERAL EYE: appearance normal, both eyes and all related structures and normal light reflex DIRECT OPHTHALMOSCOPY: Yes normal light reflex Neck/C-Spine: COMMON NORMALS: full ROM GENERAL: Yes normal visual inspection CERVICAL SPINE: No Cervical spine tenderness Chest: COMMONS NORMALS: normal inspection of the chest and normal palpation of entire chest wall Resp: EFFORT & INSPECTION: Yes respiratory distress, Yes labored and Yes uses accessory muscles Cardio: COMMON NORMALS: regular rate and regular rhythm RATE: regular rate RHYTHM: regular rhythm GI: COMMON NORMALS: Normal to inspection, nondistended, normoactive bowel sounds present, Soft to palpation and non-tender PALPATION: Yes Soft to palpation : COMMON NORMALS: Yes no CVA tenderness BLADDER/KIDNEY EXAM: Yes no CVA tenderness Back/Pelvis: COMMON NORMALS: no CVA tenderness LUMBAR SPINE/LOWER BACK: Yes lumbar spinal tenderness (midline lower lumbar and to the L), Yes paraspinal muscle tenderness and Yes straight leg raise negative bilaterally PELVIS: Yes buttocks normal and No sciatic notch tenderness SACRUM: no tenderness C OCCYX: no tenderness Extremity: GENERAL: Yes normal exam except as noted Neuro: TOMASA COMA SCALE: document GCS findings Star coma scale eye opening: Spontaneous Tomasa coma scale verbal response: Orientated Tomasa coma scale motor response: Obey commands Star coma scale total score: 15 COMMON NORMALS: patient oriented x3, moves all extremities, no focal motor deficits and no sensory deficits noted SENSORIUM/ORIENTATION: Yes alert, Yes oriented to person, Yes oriented to place and Yes oriented to time Skin: COMMON NORMALS: no rashes or lesions noted GENERAL SKIN EXAM: no rashes or lesions noted Course 2 Vital Signs: Vital signs: Vital Signs Temperature 98.8 F 07/19/24 12:00 Pulse Rate 128 H 07/19/24 12:00 Respiratory Rate 11 L 07/19/24 10:58 Blood Pressure 97/60 07/19/24 12:00 Pulse Oximetry 87 L 07/19/24 12:00 Oxygen Delivery Me thod Nasal Cannula 07/19/24 12:00 Oxygen Flow Rate 6 07/19/24 12:00 Fraction of Inspir ed Oxygen 40 07/19/24 10:58 MDM - Fall Lab Data 07/19/24 04:45 07/19/24 04:45 Radiology Impressions Lumbar Spine X-Ray 07/17/24 16:48 IMPRESSION: No acute findings. Chest X-Ray 07/19/24 07:00 IMPRESSION: Small bilateral pleural effusions. Laboratory Results WBC 8.24 10^3/uL (3.29-11.43) 07/17/24 17:16 Corrected WBC Financial Administration Officer 07/17/24 17:16 RBC 3.51 10^6/uL (3.85-5.65) L 07/17/24 17:16 Hgb 10.50 g/dL (11.27-16.99) L 07/17/24 17:16 Hct 36.9 % (36-47) 07/17/24 17:16 MCV 105.1 fl (85-98) H 07/17/24 17:16 MCH 29.9 pg (27-33) 07/17/24 17:16 MCHC 28.5 g/dL (30-55) L 07/17/24 17:16 RDW 13.2 % (12.1-15.1) 07/17/24 17:16 Plt Count 151 10^3/cmm (157-399) L 07/17/24 17:16 MPV 11.0 fL (7.4-10.4) H 07/17/24 17:16 Gran % Financial Administration Officer 07/17/24 17:16 Neut % (Auto) 74.1 % 07/17/24 17:16 Lymph % (Auto) 16.5 % 07/17/24 17:16 Millard % (Auto) 7.6 % 07/17/24 17:16 Eos % (Auto) 1.0 % 07/17/24 17:16 Baso % (Auto) 0.4 % 07/17/24 17:16 Neut # (Auto) 6.11 10^3/uL (1.8-7.7) 07/17/24 17:16 Lymph # (Auto) 1.4 10^3/uL (0.8-4.8) 07/17/24 17:16 Millard # (Auto) 0.6 10^3/uL (0.2-0.9) 07/17/24 17:16 Eos # (Auto) 0.1 10^3/uL (0.0-0.8) 07/17/24 17:16 Baso # (Auto) 0.0 10^3/uL (0.0-0.1) 07/17/24 17:16 Absolute Gran (auto) Financial Administration Officer 07/17/24 17:16 Nucleated RBC % (auto) 0 % 07/17/24 17:16 Nucleated RBCs # 0.0 /100WBC 07/17/24 17:16 Specimen Type Arterial 07/17/24 16:54 Sample Site Brachial, left 07/17/24 16:54 ABG pH 7.18 (7.35-7.45) L* 07/17/24 16:54 ABG pCO2 > 102.0 mmHg (35-45) H* 07/17/24 16:54 ABG pO2 58.5 mmHg (80.0-100.0) L 07/17/24 16:54 ABG HCO3 50.1 mmol/L (22-26) H 07/17/24 16:54 ABG O2 Saturation 86.3 07/17/24 16:54 ABG Base Excess 17.2 mmol/L (-2.0-2.0) H 07/17/24 16:54 Braxton Test Pos 07/17/24 16:54 A-a O2 Gradient Not Reportable 07/17/24 16:54 Hematocrit 33.1 % (37-47) L 07/17/24 16:54 Hgb O2 Saturation 83.2 % (95-100) L 07/17/24 16:54 Carboxyhemoglobin 2.5 %THgb (0.4-20.1) 07/17/24 16:54 Methemoglobin 1.1 % (0.4-1.5) 07/17/24 16:54 Total Hemoglobin 10.8 g/dL (12-16) L 07/17/24 16:54 Sodium 142.0 mmol/L (131-143) 07/17/24 16:54 Potassium 4.3 mmol/L (3.5-5.0) 07/17/24 16:54 Glucose 139.0 mg/dL (70-115) H 07/17/24 16:54 Ionized Calcium 1.3 mmol/L (1.1-1.4) 07/17/24 16:54 O2 Delivery Device Nc 07/17/24 16:54 O2 Liters/Min 4.0 % 07/17/24 16:54 General Magistrate ID Walci 07/17/24 16:54 Sodium 141 mmol/L (136-145) 07/17/24 17:28 Potassium 4.9 mmol/L (3.5-5.1) 07/17/24 17:28 Chloride 94 mmol/L (98-107) L 07/17/24 17:28 Carbon Dioxide 44 mmol/L (22-29) H* 07/17/24 17:28 Anion Gap 7.9 (5-19) 07/17/24 17:28 BUN 12 mg/dL (6-20) 07/17/24 17:28 Creatinine 0.9 mg/dL (0.5-0.9) 07/17/24 17:28 GFR Calculation 65.0 mL/min (90-130) L 07/17/24 17:28 Glucose 122 mg/dL (65-115) H 07/17/24 17:28 Calculated Osmolality 293 mOsm/kg (285-295) 07/17/24 17:28 Lactic Acid 1.6 mmol/L (0.5-2.2) 07/17/24 18:50 Calcium 9.1 mg/dL (8.5-10.5) 07/17/24 17:28 Total Bilirubin 0.2 mg/dL (0.15-1.2) 07/17/24 17:28 AST 8 U/L (0-32) 07/17/24 17:28 ALT < 5 U/L (0-33) 07/17/24 17:28 Alkaline Phosphatase 79 U/L (35-105) 07/17/24 17:28 NT-Pro-B Natriuret Pep 1184 pg/mL (0-125) H 07/17/24 17:28 Total Protein 6.2 g/dL (6.6-8.7) L 07/17/24 17:28 Albumin 3.4 g/dL (3.5-5.2) L 07/17/24 17:28 Globulin 2.8 g/dL (1.3-4.6) 07/17/24 17:28 Procalcitonin 0.08 ng/mL (0-0.5) 07/17/24 17:28 TSH 0.73 uIU/mL (0.27-4.20) 07/17/24 17:28 Influenza A (PCR) Negative (Negative) 07/17/24 17:20 Influenza Type B (PCR) Negative (Negative) 07/17/24 17:20 RSV (PCR) Negative (Negative) 07/17/24 17:20 SARS-CoV-2 (PCR) Negative (Negative) 07/17/24 17:20 Discharge Plan Discharge Patient Disposition: Admitted As Inpatient Admit Provider: Narinder Guadarrama Clinical Impression: Respiratory failure, COPD (chronic obstructive pulmonary disease) Condition: Stable Coding Level of Care Code ED Shipping Coordinator for Chg Fwd Documented by User: MIRNA Matthew 07/17/24 23:33 HPI - Fall 2 General: Chief Complaint: Back Pain/Injury Stated Complaint: SOB Time Seen by Provider: 07/17/24 16:37 Related Data Home Medications ?Medication ?Instructions ?Recorded ?Confirmed sennosides 8.6 mg tablet (Senna 8.6 mg PO BID PRN Cons tipation 07/18/23 07/18/24 Lax) Previous Rx's ?Medication ?Instructions ?Recorded Portable Oxygen Concentrator #1 ea 06/18/23 bupropion HCl 150 mg 24 hr tablet, 150 mg PO QAM #30 t abs 01/01/24 extended release pantoprazole 40 mg tablet,delayed 40 mg PO BID #84 tab s 03/12/24 release albuterol sulfate 2.5 mg/3 mL 2.5 mg (3 mL) inhalation QID PRN 03/20/24 (0.083 %) solution for nebulization Shortness Of Breat h Or Wheezing #180 mL albuterol sulfate 90 mcg/actuation 2 puff inhalation Q ID PRN 03/20/24 aerosol inhaler (Ventolin HFA) Shortness Of Breath #8. 5 grams budesonide-formoterol HFA 160 2 inh inhalation BID #10 .2 grams 03/20/24 mcg-4.5 mcg/actuation aerosol inhaler (Symbicort) tiotropium bromide 18 mcg capsule 1 cap inhalation JOSE LY #60 03/20/24 with inhalation device (Spiriva inhalations with HandiHaler) furosemide 40 mg tablet 20 mg (1/2 x 40 mg) PO DAILY @0800 04/25/24 Edema #30 tabs potassium chloride 20 mEq See Rx Instructions .Route 0 06/11/24 tablet,extended release(part/cryst) .COMPLEX #30 tabs varenicline tartrate 0.5 mg (11)-1 See Rx Instructions PO PER PKG DIR 07/09/24 mg (42) tablets in a dose pack #53 ea (Chantix Starting Month Box) Allergies Allergy/AdvReac Type Severity Reaction Status Date / Time hydrocodone Allergy ADR-Vomitin Verified 07/09/24 09:08 g tramadol Allergy ADR-Itching Verified 07/09/24 09:08 [facility] ED 2 PFS: Medical History Encounter for smoking cessation counseling Chronic hypercapnic respiratory failure Upper GI bleeding TIA (transient ischemic attack) Dependence on supplemental oxygen HTN (hypertension) Acute exacerbation of chronic obstructive airways disease Tenosynovitis of foot Fracture of fifth metatarsal bone of right foot Gastroesophageal reflux disease Hypertension Anxiety COPD (chronic obstructive pulmonary disease) Right ankle pain Right foot pain Surgical History Hx of tubal ligation History of tonsillectomy and adenoidectomy Hx of cholecystectomy Hx of hernia repair Hx of section Hx of colonoscopy (~2012) Family History Father Cancer lung Heart disease Mother Heart disease Social History Smoking and tobacco/nicotine status: current every day tobacco/nicotine user cigarettes Packs smoked per day: 1 Years cigarettes smoked: 45 Second hand smoke exposure: Yes Alcohol intake: former Former alcohol use details: sober x 20 yrs Substance/Drug Use: never Caregiver/support person: Yes Lives independently: Yes Household members: spouse and children Marital status: service: No Current occupational status: unemployed Current gender identity: Female Special lauryn needs: No Agree to transfusion: No Physical Exam 2 Neuro: TOMASA COMA SCALE: document GCS findings Tomasa coma scale total score: 15 Course 2 Vital Signs: Vital signs: Vital Signs Temperature 98.8 F 07/19/24 12:00 Pulse Rate 128 H 07/19/24 12:00 Respiratory Rate 11 L 07/19/24 10:58 Blood Pressure 97/60 07/19/24 12:00 Pulse Oximetry 87 L 07/19/24 12:00 Oxygen Delivery Me thod Nasal Cannula 07/19/24 12:00 Oxygen Flow Rate 6 07/19/24 12:00 Fraction of Inspir ed Oxygen 40 07/19/24 10:58 MDM - Fall Medical Decision Making Patient signed out by GHAZALA Wagoner to Leon Sarmiento HAND II THERMAL CUTTER at 1700 Estellenellie patel is a 53-year-old female that presents to the emergency department with complaints of back pain after fall from standing. Fall occurred this morning due to unsteady gait. Patient states that she has been falling a lot lately. As a result she has back pain. However, during the course of evaluation by prior provider, they became concerned about hypoxia as patient has a pretty significant history of hypercapnic respiratory failure. Patient is on home O2 4 to 8 L. Upon further evaluation, she was hypercapnic, greater than 102. Patient was started on BiPAP prior to my arrival. Patient did undergo an EKG at 1730. EKG reveals sinus rhythm with a ventricular rate of 83 beats a minute and a QTc of 392. There is no ectopy, ST elevation or abnormal T wave inversion although there is artifact from movement. Patient found unresponsive at 1845. O2 saturation 85 on bipap. Patient will require intubation. Family member at bedside reports that she would proceed with intubation as a last resort. Patient being transferred to an acute bed. Transition of care to Dr. Dalton Frye. Lab Data 07/19/24 04:45 07/19/24 04:45 Radiology Impressions Lumbar Spine X-Ray 07/17/24 16:48 IMPRESSION: No acute findings. Chest X-Ray 07/19/24 07:00 IMPRESSION: Small bilateral pleural effusions. Laboratory Results WBC 8.24 10^3/uL (3.29-11.43) 07/17/24 17:16 Corrected WBC Financial Administration Officer 07/17/24 17:16 RBC 3.51 10^6/uL (3.85-5.65) L 07/17/24 17:16 Hgb 10.50 g/dL (11.27-16.99) L 07/17/24 17:16 Hct 36.9 % (36-47) 07/17/24 17:16 MCV 105.1 fl (85-98) H 07/17/24 17:16 MCH 29.9 pg (27-33) 07/17/24 17:16 MCHC 28.5 g/dL (30-55) L 07/17/24 17:16 RDW 13.2 % (12.1-15.1) 07/17/24 17:16 Plt Count 151 10^3/cmm (157-399) L 07/17/24 17:16 MPV 11.0 fL (7.4-10.4) H 07/17/24 17:16 Gran % Financial Administration Officer 07/17/24 17:16 Neut % (Auto) 74.1 % 07/17/24 17:16 Lymph % (Auto) 16.5 % 07/17/24 17:16 Millard % (Auto) 7.6 % 07/17/24 17:16 Eos % (Auto) 1.0 % 07/17/24 17:16 Baso % (Auto) 0.4 % 07/17/24 17:16 Neut # (Auto) 6.11 10^3/uL (1.8-7.7) 07/17/24 17:16 Lymph # (Auto) 1.4 10^3/uL (0.8-4.8) 07/17/24 17:16 Millard # (Auto) 0.6 10^3/uL (0.2-0.9) 07/17/24 17:16 Eos # (Auto) 0.1 10^3/uL (0.0-0.8) 07/17/24 17:16 Baso # (Auto) 0.0 10^3/uL (0.0-0.1) 07/17/24 17:16 Absolute Gran (auto) Financial Administration Officer 07/17/24 17:16 Nucleated RBC % (auto) 0 % 07/17/24 17:16 Nucleated RBCs # 0.0 /100WBC 07/17/24 17:16 Specimen Type Arterial 07/17/24 16:54 Sample Site Brachial, left 07/17/24 16:54 ABG pH 7.18 (7.35-7.45) L* 07/17/24 16:54 ABG pCO2 > 102.0 mmHg (35-45) H* 07/17/24 16:54 ABG pO2 58.5 mmHg (80.0-100.0) L 07/17/24 16:54 ABG HCO3 50.1 mmol/L (22-26) H 07/17/24 16:54 ABG O2 Saturation 86.3 07/17/24 16:54 ABG Base Excess 17.2 mmol/L (-2.0-2.0) H 07/17/24 16:54 Braxton Test Pos 07/17/24 16:54 A-a O2 Gradient Not Reportable 07/17/24 16:54 Hematocrit 33.1 % (37-47) L 07/17/24 16:54 Hgb O2 Saturation 83.2 % (95-100) L 07/17/24 16:54 Carboxyhemoglobin 2.5 %THgb (0.4-20.1) 07/17/24 16:54 Methemoglobin 1.1 % (0.4-1.5) 07/17/24 16:54 Total Hemoglobin 10.8 g/dL (12-16) L 07/17/24 16:54 Sodium 142.0 mmol/L (131-143) 07/17/24 16:54 Potassium 4.3 mmol/L (3.5-5.0) 07/17/24 16:54 Glucose 139.0 mg/dL (70-115) H 07/17/24 16:54 Ionized Calcium 1.3 mmol/L (1.1-1.4) 07/17/24 16:54 O2 Delivery Device Nc 07/17/24 16:54 O2 Liters/Min 4.0 % 07/17/24 16:54 General Magistrate ID Walci 07/17/24 16:54 Sodium 141 mmol/L (136-145) 07/17/24 17:28 Potassium 4.9 mmol/L (3.5-5.1) 07/17/24 17:28 Chloride 94 mmol/L (98-107) L 07/17/24 17:28 Carbon Dioxide 44 mmol/L (22-29) H* 07/17/24 17:28 Anion Gap 7.9 (5-19) 07/17/24 17:28 BUN 12 mg/dL (6-20) 07/17/24 17:28 Creatinine 0.9 mg/dL (0.5-0.9) 07/17/24 17:28 GFR Calculation 65.0 mL/min (90-130) L 07/17/24 17:28 Glucose 122 mg/dL (65-115) H 07/17/24 17:28 Calculated Osmolality 293 mOsm/kg (285-295) 07/17/24 17:28 Lactic Acid 1.6 mmol/L (0.5-2.2) 07/17/24 18:50 Calcium 9.1 mg/dL (8.5-10.5) 07/17/24 17:28 Total Bilirubin 0.2 mg/dL (0.15-1.2) 07/17/24 17:28 AST 8 U/L (0-32) 07/17/24 17:28 ALT < 5 U/L (0-33) 07/17/24 17:28 Alkaline Phosphatase 79 U/L (35-105) 07/17/24 17:28 NT-Pro-B Natriuret Pep 1184 pg/mL (0-125) H 07/17/24 17:28 Total Protein 6.2 g/dL (6.6-8.7) L 07/17/24 17:28 Albumin 3.4 g/dL (3.5-5.2) L 07/17/24 17:28 Globulin 2.8 g/dL (1.3-4.6) 07/17/24 17:28 Procalcitonin 0.08 ng/mL (0-0.5) 07/17/24 17:28 TSH 0.73 uIU/mL (0.27-4.20) 07/17/24 17:28 Influenza A (PCR) Negative (Negative) 07/17/24 17:20 Influenza Type B (PCR) Negative (Negative) 07/17/24 17:20 RSV (PCR) Negative (Negative) 07/17/24 17:20 SARS-CoV-2 (PCR) Negative (Negative) 07/17/24 17:20 All radiology interpretation(s) finalized by discharge Discharge Plan Discharge Patient Disposition: Admitted As Inpatient Admit Provider: Narinder Guadarrama Clinical Impression: Respiratory failure, COPD (chronic obstructive pulmonary disease) Condition: Stable Coding Level of Care Code ED Shipping Coordinator for Vishal Badillo
[2024-07-17 17:05] LABS: ABG PCO2 > 102.0 mmHg (35-45); ABG PH Result 7.18 (7.35-7.45); Arterial Blood Gas Hematocrit 33.1 % (37-47); Base Excess ABG 17.2 mmol/L (-2.0-2.0); Blood Gas Allen Test Pos; Blood Gas Operator Identificat WALCI; Blood Gas Sample Site Brachial, left; Blood Gas Sample Type Arterial; Carboxyhemoglobin 2.5 %THgb (0.4-20.1); HCO3 ABG 50.1 mmol/L (22-26); HGB O2 Sat 83.2 % (95-100); Ionized Calcium Level - ABG 1.3 mmol/L (1.1-1.4); Methemoglobin 1.1 % (0.4-1.5); Oxygen Device NC; Oxygen Saturation ABG 86.3; PO2 ABG 58.5 mmHg (80.0-100.0); Potassium Level - ABG 4.3 mmol/L (3.5-5.0); Total Hemoglobin 10.8 g/dL (12-16)
[2024-07-17 17:42] LABS: Basophils % 0.4 %; Eosinophils # 0.1 10^3/uL (0.0-0.8); Hematocrit 36.9 % (36-47); Lymphocytes # 1.4 10^3/uL (0.8-4.8); Lymphocytes % 16.5 %; Mean Corpuscular HGB Conc 28.5 g/dL (30-55); Mean Corpuscular Hemoglobin 29.9 pg (27-33); Mean Corpuscular Volume 105.1 fl (85-98); Monocytes # 0.6 10^3/uL (0.2-0.9); Monocytes % 7.6 %; Neutrophils # 6.11 10^3/uL (1.8-7.7); Neutrophils % 74.1 %; Nucleated Red Blood Cells % 0 %; Platelet Count 151 10^3/cmm (157-399); Red Blood Count 3.51 10^6/uL (3.85-5.65); Red Cell Distribution Width 13.2 % (12.1-15.1); White Blood Count 8.24 10^3/uL (3.29-11.43)
[2024-07-17 18:05] LABS: NT Pro B Type Natriuretic Pept 1184 pg/mL (0-125); Procalcitonin 0.08 ng/mL (0-0.5)
[2024-07-17 18:18] LABS: Alanine Aminotransferase < 5 U/L (0-33); Albumin Level 3.4 g/dL (3.5-5.2); Alkaline Phosphatase 79 U/L (35-105); Anion Gap 7.9 (5-19); Aspartate Amino Transferase 8 U/L (0-32); Blood Urea Nitrogen 12 mg/dL (6-20); Calcium 9.1 mg/dL (8.5-10.5); Chloride 94 mmol/L (98-107); Globulin 2.8 g/dL (1.3-4.6); Glucose 122 mg/dL (65-115); Osmolality Calculated 293 mOsm/kg (285-295); Potassium 4.9 mmol/L (3.5-5.1); Sodium 141 mmol/L (136-145); Total Bilirubin 0.2 mg/dL (0.15-1.2); Total Protein 6.2 g/dL (6.6-8.7)
[2024-07-17 18:21] LABS: Influenza A NEGATIVE (Negative); Influenza B NEGATIVE (Negative); Respiratory Syncytial Virus Ce NEGATIVE (Negative); SARS-CoV-2 PCR NEGATIVE (Negative)
[2024-07-17 18:25] LABS: Carbon Dioxide 44 mmol/L (22-29)
--- NOTE | 2024-07-17 19:09 | XRR_ITS ---
PROCEDURE INFORMATION: Exam: XR Chest Exam date and time: 07/17/2024 7:10 PM Age: 53 years old Clinical indication: Device placement; Ett placement (vent status); Check S/P ett and og placement; Additional info: Og and et tube placement TECHNIQUE: Imaging protocol: Radiologic exam of the chest. Views: 1 view. COMPARISON: CR (CHEST, ) 07/17/2024 4:34 PM FINDINGS: Tubes, catheters and devices: OG tube terminates in the stomach. Endotracheal tube terminates in proper position above the rajesh. Lungs: Consolidation within the visualized portions of the lungs. Lung apices are excluded. Pleural spaces: Small volume pleural effusions. No pneumothorax. Heart/Mediastinum: Unremarkable. No cardiomegaly. Bones/joints: Visualized osseous structures are intact. XR/XR chest 1V [id number] IMPRESSION: 1. Proper positioning of support apparatus. 2. Small volume pleural effusions.
[2024-07-17] MEDS: etomidate 2 mg/mL INJ SDV 10 mL 20 MG IVP (19:14)
[2024-07-17 19:15] LABS: Lactic Sepsis W/Reflex 1.6 mmol/L (0.5-2.2)
[2024-07-17] MEDS: succinylcholine 20 mg/mL SDV 10mL 100 MG IVP (19:17)
[2024-07-17] MEDS: propofol 1,000 MG/100 ML INJ 1.73 MG IV (19:37)
[2024-07-17] MEDS: methylPREDNISolone sod succ 125 mg/2 mL INJ IVP (19:40)
--- NOTE | 2024-07-17 19:55 | PC.NURSE ---
Intubation note 1913 pre intubation vitals HR 83 O2 78% on Bipap BP 135/97 1913 20MG ETOMIDATE 191 100MG SUCCINYLCHOLINE 1918 VITALS HR 90 O2 98% BAGGED 1919 BP 135/97 7.5 ET TUBE 23@ THE LIP
[2024-07-17] MEDS: vecuronium 10 mg SDV IVP (20:05)
[2024-07-17] MEDS: ipratropium-albuterol 3 mL Neb INHALATION ×2 (20:50→23:07)
--- NOTE | 2024-07-17 20:58 | P.HP_ITS ---
Providers/Chief Complaint 2 Admitting Physician: Narinder Guadarrama MD Primary Care Provider: Marion Gastelum MD Chief Complaint: SOB History of Present Illness Estelle Pascual is a 53 year old female with established history of advanced COPD on trelegy home vent, active smoker, chronic hypercapnia with hypoxia with met alkalosis in compensation presented for worsening of shortness of breath today. Patient was 4 L nasal cannula on arrival, was complaining of back pain, insomnia, she was put on BiPAP in the ER however became more somnolent, considering pCO2 above 100 was intubated in the ER. At the time of evaluation patient is intubated and sedated repeat ABG showing improvement of pCO2 around 80s, she is hemodynamic stable, looks euvolemic She has a lot of overall secretions which were suctioned, PEEP 6, FiO2 60% Fentanyl was added on top of propofol, patient was trying to open eyes and moving extremities. She was at propofol 45 Review of Systems 2 General: Reports: ROS unobtainable due to endotracheal tube Medications/Allergies Home Medications ?Medication ?Instructions ?Recorded ?Confirmed ?Last Taken ?Type Portable Oxygen Concentrator #1 ea 06/18/23 07/09/24 U nknown Rx sennosides 8.6 mg tablet (Senna 8.6 mg PO BID PRN Cons tipation 07/18/23 07/09/24 07/17/23 History Lax) bupropion HCl 150 mg 24 hr tablet, 150 mg PO QAM #30 t abs 01/01/24 07/09/24 04/13/24 Rx extended release pantoprazole 40 mg tablet,delayed 40 mg PO BID #84 tab s 03/12/24 07/09/24 04/13/24 Rx release sucralfate 1 gram tablet 1 g PO AC&BEDTIME #90 tabs 1 05/12/23 07/09/24 04/13/24 Rx albuterol sulfate 2.5 mg/3 mL 2.5 mg (3 mL) inhalation QID PRN 03/20/24 07/09/24 Unknown Rx (0.083 %) solution for nebulization Shortness Of Breat h Or Wheezing #180 mL albuterol sulfate 90 mcg/actuation 2 puff inhalation Q ID PRN 03/20/24 07/09/24 Unknown Rx aerosol inhaler (Ventolin HFA) Shortness Of Breath #8. 5 grams budesonide-formoterol HFA 160 2 inh inhalation BID #10 .2 grams 03/20/24 07/09/24 04/13/24 Rx mcg-4.5 mcg/actuation aerosol inhaler (Symbicort) tiotropium bromide 18 mcg capsule 1 cap inhalation JOSE LY #60 03/20/24 07/09/24 04/13/24 Rx with inhalation device (Spiriva inhalations with HandiHaler) acetazolamide 250 mg tablet 250 mg PO .mon and thursda y #10 04/25/24 07/09/24 Unknown Rx tabs furosemide 40 mg tablet 20 mg (1/2 x 40 mg) PO DAILY @0800 04/25/24 07/09/24 Unknown Rx Edema #30 tabs potassium chloride 20 mEq See Rx Instructions .Route 0 06/11/24 07/09/24 Unknown Rx tablet,extended release(part/cryst) .COMPLEX #30 tabs varenicline tartrate 0.5 mg (11)-1 See Rx Instructions PO PER PKG DIR 07/09/24 07/09/24 Unknown Rx mg (42) tablets in a dose pack #53 ea (Chantix Starting Month Box) Allergies Allergy/AdvReac Type Severity Reaction Status Date / Time hydrocodone Allergy ADR-Vomitin Verified 07/09/24 09:08 g tramadol Allergy ADR-Itching Verified 07/09/24 09:08 PFSH Acute 2 PFSH: Medical History Encounter for smoking cessation counseling Chronic hypercapnic respiratory failure Upper GI bleeding TIA (transient ischemic attack) Dependence on supplemental oxygen HTN (hypertension) Acute exacerbation of chronic obstructive airways disease Tenosynovitis of foot Fracture of fifth metatarsal bone of right foot Gastroesophageal reflux disease Hypertension Anxiety COPD (chronic obstructive pulmonary disease) Right ankle pain Right foot pain Surgical History Hx of tubal ligation History of tonsillectomy and adenoidectomy Hx of cholecystectomy Hx of hernia repair Hx of section Hx of colonoscopy (~2012) Family History Father Cancer lung Heart disease Mother Heart disease Social History Smoking and tobacco/nicotine status: current every day tobacco/nicotine user cigarettes Packs smoked per day: 1 Years cigarettes smoked: 45 Second hand smoke exposure: Yes Alcohol intake: former Former alcohol use details: sober x 20 yrs Substance/Drug Use: never Caregiver/support person: Yes Lives independently: Yes Household members: spouse and children Marital status: service: No Current occupational status: unemployed Current gender identity: Female Special lauryn needs: No Agree to transfusion: No Vitals/I&O/Wt Last Vital Signs Temp 98.3 F 07/17/24 16:31 Pulse 85 07/17/24 20:09 Resp 16 07/17/24 20:09 BP 119/62 07/17/24 20:09 Pulse Ox 100 07/17/24 20:09 O2 Del Method Mechanical Ventilation 07/17/24 20:09 O2 Flow Rate 60 07/17/24 19:43 FiO2 60 07/17/24 20:09 Weight last 48 hrs Weight 57.606 kg Physical Exam 2 Narrative: Patient is euvolemic Dee catheter in place Neuroexam limited A lot of oral secretions were suctioned PEEP 6 FiO2 60% Abdomen nondistended Doorstep no significant edema Hemodynamic stable No skin mottling Saturating well Afebrile Patient was fidgety, was trying to open her eyes, was trying to move her extremities Urinary Catheter Management: Dee: Cath Placed During This Visit: yes Urinary Catheter Date of Insertion: 07/17/24 Urinary Catheter Time of Insertion: 19:24 Data 07/17/24 17:16 07/17/24 17:28 A&P Assessment and plan (1) CKD (chronic kidney disease): (2) Anemia: (3) COPD (chronic obstructive pulmonary disease): Qualifiers: COPD type: COPD with acute exacerbation Qualified Code(s): J44.1 - Chronic obstructive pulmonary disease with (acute) exacerbation (4) Hypoxia: (5) Chronic hypercapnic respiratory failure: (6) Acute respiratory failure with hypoxia and hypercapnia: (7) Acute exacerbation of chronic obstructive airways disease: (8) Respiratory failure: Qualifiers: Chronicity: acute on chronic Respiratory failure complication: hypoxia and hypercapnia Qualified Code(s): J96.21 - Acute and chronic respiratory failure with hypoxia; J96.22 - Acute and chronic respiratory failure with hypercapnia (9) COPD (chronic obstructive pulmonary disease): (10) Respiratory failure requiring intubation: Plan Respiratory failure require mechanical ventilation Acute COPD exacerbation Respiratory panel negative PEEP 6, FiO2 60% May start weaning trial in the morning Clinically does not look fluid overloaded Check procalcitonin Patient is home vent dependent trelegy, active smoker, recurrent admissions due to COPD exacerbation Hold off on antibiotics procalcitonin is not high no leukocytosis or fever Chronic anemia: Stable Metabolic alkalosis is in response to compensation to acute on chronic hypercapnia, I would not give her acetazolamide Chronic kidney disease: Creatinine 0.9, no severe electrolyte abnormality Full code Hold off on diuretics GI prophylaxis Protonix For upper airway secretions will use scopolamine patch which could be removed in next 24 hours PDMP PDMP Reviewed: Not Reviewed Attestations 2 Medical Necessity Statement*: Anticipating more than 2 midnights in the hospital for management valuation respiratory failure required mechanical relation Coding Level of Care Code Critical Care >/= 30 minutes Critical care time (in minutes): 30 The high probability of a clinically significant, sudden or life threatening deterioration, as referenced in this documentation, required my full and direct attention, intervention and personal management. The critical care time shown is in addition to time spent performing any reported separately billable procedures and includes the following: [x] Data and vital sign review and interpretation [x ] Patient assessment, examination and intervention [x] Medication orders and management [x] Patient/Family updates as able [x] Care Coordination and Documentation. Diagnoses CKD (chronic kidney disease) N18.9 Anemia D64.9 Chronic obstructive pulmonary disease with acute exacerbation J44.1 COPD type: COPD with acute exacerbation Hypoxia R09.02 Chronic hypercapnic respiratory failure J96.12 Acute respiratory failure with hypoxia and hypercapnia J96.01; J96.02 Acute exacerbation of chronic obstructive airways disease J44.1 Respiratory failure J96.21; J96.22 Chronicity: acute on chronic Respiratory failure complication: hypoxia and hypercapnia Respiratory failure requiring intubation J96.90
[2024-07-17 22:02] LABS: ABG PH Result 7.37 (7.35-7.45); Arterial Blood Gas Hematocrit 38.9 % (37-47); Base Excess ABG 19.5 mmol/L (-2.0-2.0); Blood Gas Allen Test Pos; Blood Gas Operator Identificat JDB; Blood Gas Sample Site Radial, right; Blood Gas Sample Type Arterial; HCO3 ABG 49.3 mmol/L (22-26); Oxygen Device VENT; PO2 FiO2 Ratio Arterial Blood 340
[2024-07-17 22:03] LABS: ABG PCO2 85.7 mmHg (35-45)
[2024-07-17] MEDS: cefTRIAXone 1,000 MG in sodium chloride 0.9% (plus) 50 ML 100 MG IV (22:29)
[2024-07-17] MEDS: fentaNYL 1,000 MCG/100 ML BAG 2.5 MCG IV (22:29)
[2024-07-17] MEDS: heparin 5,000 unit/mL INJ 1 mL 5000 UNIT SUBCUT (22:29)
[2024-07-17 22:43] LABS: Thyroid Stimulating Hormone 0.73 uIU/mL (0.27-4.20)
[2024-07-17] MEDS: scopolamine 1 mg PATCH 1 PATCH TRANSDERMA (23:08)
[2024-07-18] VITALS (107 sets, daily range): BP systolic 75–136; BP diastolic 49–86; PULSE 75–110; RESP 14–18; TEMP 36.9–37.5; O2SAT 90–100
[2024-07-18] MEDS: propofol 1,000 MG/100 ML INJ 10.37 MG IV (02:51)
[2024-07-18] MEDS: ipratropium-albuterol 3 mL Neb INHALATION ×4 (04:09→19:39)
[2024-07-18 04:33] LABS: ABG PH Result 7.43 (7.35-7.45); Arterial Blood Gas Hematocrit 31.7 % (37-47); Base Excess ABG 20.5 mmol/L (-2.0-2.0); Blood Gas Allen Test Pos; Blood Gas Operator Identificat JDB; Blood Gas Sample Site Brachial, right; Blood Gas Sample Type Arterial; HCO3 ABG 48.1 mmol/L (22-26); Oxygen Device VENT; PO2 ABG 59.8 mmHg (80.0-100.0); PO2 FiO2 Ratio Arterial Blood 149
[2024-07-18 04:34] LABS: ABG PCO2 72.6 mmHg (35-45)
[2024-07-18 05:28] LABS: Basophils % 0.1 %; Eosinophils % 0.1 %; Hematocrit 33.9 % (36-47); Lymphocytes # 0.7 10^3/uL (0.8-4.8); Lymphocytes % 9.2 %; Mean Corpuscular HGB Conc 28.9 g/dL (30-55); Mean Corpuscular Hemoglobin 29.8 pg (27-33); Monocytes # 0.1 10^3/uL (0.2-0.9); Monocytes % 1.3 %; Neutrophils % 88.7 %; Nucleated Red Blood Cells % 0 %; Platelet Count 147 10^3/cmm (157-399); Red Blood Count 3.29 10^6/uL (3.85-5.65); Red Cell Distribution Width 12.9 % (12.1-15.1)
[2024-07-18 05:53] LABS: Anion Gap 11.4 (5-19); Blood Urea Nitrogen 16 mg/dL (6-20); Calcium 9.2 mg/dL (8.5-10.5); Carbon Dioxide 40 mmol/L (22-29); Chloride 92 mmol/L (98-107); Glucose 144 mg/dL (65-115); Magnesium 1.6 mg/dL (1.7-2.3); Osmolality Calculated 292 mOsm/kg (285-295); Phosphorus 1.4 mg/dL (2.5-4.5); Potassium 4.4 mmol/L (3.5-5.1); Sodium 139 mmol/L (136-145)
--- NOTE | 2024-07-18 07:22 | PC.NURSE ---
Per protocol [facility] contacted, spoke with Rachael industrial relations representative.
[2024-07-18] MEDS: heparin 5,000 unit/mL INJ 1 mL 5000 UNIT SUBCUT ×2 (08:30→20:36)
[2024-07-18] MEDS: pantoprazole 40 mg SDV IVP ×2 (08:30→17:04)
[2024-07-18] MEDS: methylPREDNISolone sod succ 40 mg/mL INJ IVP ×2 (08:30→20:37)
--- NOTE | 2024-07-18 08:48 | USCV_ITS ---
Estelle Pascual Age: 53 Gender: F : 1970 Exam Date: 07/18/2024 09:42 Ordering Phys: Kirk Pandya MD Technologist: Ranjit Juarez Exam Location: [facility] [place] Indication: shock BP: 84 / 68 HR: 97 Rhythm: Sinus Technical Quality: Adequate MEASUREMENTS (Male / Female) Normal Values 2D ECHO LV Diastolic Diameter PLAX 3.2 cm 4.2 - 5.9 / 3.9 - 5.3 cm IVS Diastolic Thickness 1.1 cm 0.6 - 1.0 / 0.6 - 0.9 cm IVS Systolic Thickness 1.5 cm LVPW Diastolic Thickness 1.7 cm 0.6 - 1.0 / 0.6 - 0.9 cm LVPW Systolic Thickness 1.9 cm LVOT Diameter 2.0 cm LV Ejection Fraction 2D Teich 57.1 % LV Ejection Fraction MOD 4C 72.8 % LV Ejection Fraction MOD 2C 69.0 % LV Ejection Fraction 2C AL 69.1 % LA Diameter 3.0 cm RA Systolic Volume 4C AL 29.3 ml RA Systolic Volume 4C MOD 30.9 ml LA Sys Volume AL 25.4 cm cubed LA Sys Volume Index AL 16.0 cm cubed/m squared Aorta at Sinotubular Diameter 2.1 cm IVC Diameter 1.6 cm M-MODE LA Ao Ratio MM 1.0 AV Cusp Separation MM 1.6 cm DOPPLER AV Peak Velocity 182.0 cm/s LVOT Peak Velocity 105.0 cm/s AV Area Cont Eq vti 1.6 cm squared AV Area Cont Eq pk 1.8 cm squared MV Peak Velocity 122.0 cm/s MV Area PHT 5.0 cm squared Mitral E to A Ratio 0.8 TV Peak Velocity 213.5 cm/s TR Peak Velocity 285.0 cm/s TR Peak Gradient 32.5 mmHg TR Mean Velocity 199.0 cm/s TR Mean Gradient 18.6 mmHg TR Velocity Time Integral 63.7 cm PV Peak Velocity 109.0 cm/s RV Ejection Time 0.2 s FINDINGS Left Ventricle Normal left ventricular size, systolic function and wall thickness, with no regional wall motion abnormalities. Left ventricular ejection fraction is estimated at 60 Grade I/IV diastolic dysfunction (abnormal relaxation filling pattern), normal to mildly elevated filling pressures. Right Ventricle The right ventricle is normal in size and function. Right Atrium The right atrium is normal in size. Left Atrium The left atrium is normal in size. Mitral Valve Structurally normal mitral valve without significant stenosis or prolapse. There is no mitral regurgitation. Aortic Valve Structurally normal aortic valve without significant sclerosis or stenosis. There is no aortic regurgitation. Tricuspid Valve Structurally normal tricuspid valve without significant stenosis or regurgitation. Pulmonary artery systolic pressure is normal. Pulmonic Valve Structurally normal pulmonic valve without significant stenosis. There is no pulmonic regurgitation. Pericardium Normal pericardium without effusion. Aorta Normal ascending aorta dimension. IVC The inferior vena cava appears normal. CONCLUSIONS Normal left ventricular size, systolic function and wall thickness, with no regional wall motion abnormalities. Left ventricular ejection fraction is estimated at 60 Grade I/IV diastolic dysfunction (abnormal relaxation filling pattern), normal to mildly elevated filling pressures. There is no pericardial effusion. No significant chamber abnormalities. Right atrial pressure is around 5 mm of mercury. Narinder Khan MD (Electronically Signed) Final Date: 18 July 2024 21:34 S
[2024-07-18] MEDS: norepinephrine 4 MG/250 ML BAG 7.5 MG IV (08:49)
--- NOTE | 2024-07-18 08:49 | ECG_ITS ---
[facility] Test Date: 2024-07-18 Pat Name: Estelle Pascual Department: Room: [facility]04 Gender: Female Skein Yarn Drier: : 1970 Requested By: Kirk Pandya Order Number: [id number] Reading MD: ROMEO PEREZ Measurements Intervals [place] Rate: 100 P: -3 MT: 125 QRS: 75 QRSD: 88 T: 66 QT: 353 QTc: 456 Interpretive Statements SINUS TACHYCARDIA NONSPECIFIC ST ELEVATION [0.05+ mV ST ELEVATION] ABNORMAL RHYTHM ECG Compared to ECG 07/17/2024 17:30:13 ST (T wave) deviation now present Sinus rhythm no longer present Electronically Signed On 07-20-2024 18:11:33 CDT by ROMEO PEREZ [id number] [id number]
[2024-07-18] MEDS: vancomycin 1,750 MG/350 ML PIGGYBACK 175 MG IV (08:58)
--- NOTE | 2024-07-18 09:24 | P.PHAVANC_ITS ---
Vancomycin Goal - Goal Vancomycin Goal:: 15-20 mg/L Vancomycin Indication:: Other - Therapy Current therapy:: Pip/Tazo Day of therpy:: Day 1 of [] Actual body weight (kg): 129 lb 12.8 oz - Data Labs: WBC 7.10 10^3/uL (3.29-11.43) 07/18/24 05:02 Corrected WBC Damage Inside Adjuster 07/17/24 17:16 RBC 3.29 10^6/uL (3.85-5.65) L 07/18/24 05:02 Hgb 9.80 g/dL (11.27-16.99) L 07/18/24 05:02 Hct 33.9 % (36-47) L 07/18/24 05:02 MCV 103.0 fl (85-98) H 07/18/24 05:02 MCH 29.8 pg (27-33) 07/18/24 05:02 MCHC 28.9 g/dL (30-55) L 07/18/24 05:02 RDW 12.9 % (12.1-15.1) 07/18/24 05:02 Sodium 139 mmol/L (136-145) 07/18/24 05:02 Potassium 4.4 mmol/L (3.5-5.1) 07/18/24 05:02 Chloride 92 mmol/L (98-107) L 07/18/24 05:02 Carbon Dioxide 40 mmol/L (22-29) H 07/18/24 05:02 Anion Gap 11.4 (5-19) 07/18/24 05:02 BUN 16 mg/dL (6-20) 07/18/24 05:02 Creatinine 0.9 mg/dL (0.5-0.9) 07/18/24 05:02 GFR Calculation 65.0 mL/min (90-130) L 07/18/24 05:02 Last dialysis session:: N/A Treatment plan:: new consult Regimen:: LOADING DOSE OF 1750 MG PER DOSING PROTOCOL MAINTENANCE DOSE OF 500 MG Q12H Follow up:: WILL CONTINUE TO MONITOR AND FOLLOW UP DAILY
[2024-07-18] MEDS: piperacillin-tazobactam 3.375 GM in sodium chloride 0.9% (plus) 50 ML IV ×2 (10:06→17:02)
[2024-07-18 10:24] LABS: Lactic Sepsis W/Reflex 2.9 mmol/L (0.5-2.2); Troponin(5th) Baseline 21 ng/L (0-10)
[2024-07-18 10:35] LABS: Reflex Lactate Order REFLEX LACTIC ORDERD
--- NOTE | 2024-07-18 10:49 | ECG_ITS ---
[facility] Test Date: 2024-07-18 Pat Name: Estelle Pascual Department: Room: [facility]04 Gender: Female Drug Coordinator: : 1970 Requested By: Kirk Pandya Order Number: [id number] Reading MD: ROMEO PEREZ Measurements Intervals [place] Rate: 84 P: 67 DC: 140 QRS: 67 QRSD: 104 T: 85 QT: 372 QTc: 441 Interpretive Statements SINUS RHYTHM NONSPECIFIC ST ELEVATION [0.05+ mV ST ELEVATION] Compared to ECG 07/18/2024 10:31:33 Sinus tachycardia no longer present ST (T wave) deviation still present Electronically Signed On 07-20-2024 18:19:05 CDT by ROMEO PEREZ [id number] [id number]
[2024-07-18] MEDS: propofol 1,000 MG/100 ML INJ 13.83 MG IV (11:00)
[2024-07-18 11:01] LABS: Bilirubin Urine Negative (Negative); Blood Urine Negative (Negative); Glucose Urine UA Negative (Normal); Ketones Urine Trace (Negative); Leukocyte Esterase Urine 1+ (Negative); Nitrate Urine Negative (Negative); Protein Urine 1+ (Negative); Urine Appearance Clear (CLEAR); Urine Color Yellow (Yellow); pH Urine 5.5 (5-7)
[2024-07-18 11:06] LABS: Add Urine Microscopic? YES; Bacteria Urine None Seen /hpf; Hyaline Casts Urine 4.95 /lpf; RBC Urine 0-2 /hpf (0-2); Squamous Epithelial Cell Urine 0-5 /hpf (0-5)
[2024-07-18 11:07] LABS: Specific Gravity, Urine 1.039 (1.005-1.030)
[2024-07-18 11:08] LABS: Add Urine Culture? Yes
[2024-07-18 11:14] LABS: MRSA PCR OZH (swab) NOT DETECTED (Not Detecte)
[2024-07-18 11:50] LABS: Basophils % 0.1 %; Hematocrit 31.5 % (36-47); Lymphocytes # 0.6 10^3/uL (0.8-4.8); Lymphocytes % 4.8 %; Mean Corpuscular HGB Conc 29.5 g/dL (30-55); Mean Corpuscular Hemoglobin 29.7 pg (27-33); Mean Corpuscular Volume 100.6 fl (85-98); Mean Platelet Volume 10.8 fL (7.4-10.4); Monocytes # 0.3 10^3/uL (0.2-0.9); Monocytes % 2.7 %; Neutrophils # 10.56 10^3/uL (1.8-7.7); Nucleated Red Blood Cells % 0 %; Platelet Count 152 10^3/cmm (157-399); Red Blood Count 3.13 10^6/uL (3.85-5.65); Red Cell Distribution Width 12.9 % (12.1-15.1); White Blood Count 11.48 10^3/uL (3.29-11.43)
[2024-07-18 12:06] LABS: Lactic Acid level (Lactate) 2.7 mmol/L (0.5-2.2)
[2024-07-18 12:07] LABS: Troponin 5 2HR 20.89 ng/L (0-10)
[2024-07-18 12:09] LABS: Troponin 5 2HR Delta -0.11 ABS# (0-10)
--- NOTE | 2024-07-18 14:49 | ECG_ITS ---
[facility]24[facility]18 Pat Name: Estelle Pascual Department: Room: [facility]04 Gender: Female Political Analyst: : 1970 Requested By: Kirk Pandya Order Number: [id number] Reading MD: ROMEO PEREZ Measurements Intervals [place] Rate: 80 P: 46 IL: 128 QRS: 62 QRSD: 89 T: 75 QT: 375 QTc: 434 Interpretive Statements SINUS RHYTHM Compared to ECG 07/18/2024 12:26:47 ST (T wave) deviation no longer present Electronically Signed On 07-20-2024 18:19:02 CDT by ROMEO PEREZ [id number] [id number]
--- NOTE | 2024-07-18 15:09 | P.PN_ITS ---
Subjective 2 Subjective: Patient currently was seen this morning, intubated, sedated on mechanical ventilation, maps are below 65 started on Levophed, concerns for septic shock, started on broad-spectrum antibiotic therapy, no family was at bedside, urine output 460, Vitals/I&O/Wt Last Vital Signs Temp 99.0 F 07/18/24 12:15 Pulse 94 07/18/24 14:30 Resp 16 07/18/24 13:22 BP 100/59 07/18/24 14:30 Pulse Ox 94 07/18/24 14:30 O2 Del Method Mechanical Ventilation 07/18/24 13:30 O2 Flow Rate 60 07/17/24 19:43 FiO2 40 07/18/24 13:22 07/18/24 07/18/24 07/18/24 06:59 14:59 22:59 Intake Total 96.322 / 157.791 499.941 / 499.941 Output Total 350 / 350 110 / 110 Balance -253.678 / -192.209 389.941 / 389.941 Weight last 48 hrs Weight 58.876 kg Weight 58.876 kg Weight 57.606 kg Physical Exam 2 Const: COMMON NORMALS: no acute distress OTHER: Intubated, sedated on mechanical ventilation Eye: COMMON NORMALS: Equal, round and reactive pupils present PUPIL: Yes Equal, round and reactive pupils present Lymph: LYMPHATIC: no lymphadenopathy noted Resp: COMMON NORMALS: normal respiratory effort, No retractions and No use of accessory muscles AUSCULTATION: crackles and wheezes Cardio: COMMON NORMALS: regular rate, regular rhythm, S1 normal heart sound present and S2 normal heart sound present RATE: regular rate RHYTHM: r egular rhythm HEART SOUNDS: S1 normal heart sound present and S2 normal heart sound present GI: COMMON NORMALS: Normal to inspection, nondistended, normoactive bowel sounds present and non-tender : COMMON NORMALS: Yes no CVA tenderness BLADDER/KIDNEY EXAM: Yes no CVA tenderness Back/Pelvis: COMMON NORMALS: no CVA tenderness Neuro: OTHER: Does not follow neurologic testing Urinary Catheter Management: Dee: Cath Placed During This Visit: yes Reason for Continuing Indwelling Catheter: Accurate Measurement of Urinary Output in Critically Ill Patients Urinary Catheter Date of Insertion: 07/17/24 Urinary Catheter Time of Insertion: 19:24 Sepsis: Is patient septic: Yes Focused sepsis exam performed: Yes F ocused sepsis exam: DP PT pulses palpable although diminished, cap refill greater than 2 seconds, cool bilateral extremities, slight bluish hue Date exam was performed: 07/18/24 Time exam was performed: 09:00 Data 07/18/24 11:40 07/18/24 05:02 Micro: Microbiology 07/18/24 11:40 Blood Culture - Preliminary Blood SPECIMEN COLLECTED 07/18/24 09:37 Blood Culture - Preliminary Blood SPECIMEN COLLECTED A&P Assessment and plan (1) CKD (chronic kidney disease): (2) Anemia: (3) COPD (chronic obstructive pulmonary disease): Qualifiers: COPD type: COPD with acute exacerbation Qualified Code(s): J44.1 - Chronic obstructive pulmonary disease with (acute) exacerbation (4) Hypoxia: (5) Chronic hypercapnic respiratory failure: (6) Acute respiratory failure with hypoxia and hypercapnia: (7) Acute exacerbation of chronic obstructive airways disease: (8) Respiratory failure: Qualifiers: Chronicity: acute on chronic Respiratory failure complication: hypoxia and hypercapnia Qualified Code(s): J96.21 - Acute and chronic respiratory failure with hypoxia; J96.22 - Acute and chronic respiratory failure with hypercapnia (9) COPD (chronic obstructive pulmonary disease): (10) Respiratory failure requiring intubation: (11) Pneumonia: (12) Septic shock: Plan Acute hypoxic hypercarbic respiratory failure Secondary to Acute COPD exacerbation With history of home vent dependent trilogy, active smoker history of recurrent COPD exacerbations Concerns for pneumonia, has thick respiratory secretions, elevated lactic acid, leukocytosis Plan Currently intubated, sedated on mechanical elation Minimize tidal volume, minimize FiO2 Start broad-spectrum antibiotic therapy Vancomycin Zosyn Blood cultures Sputum cultures DuoNeb Budesonide IV Solu-Medrol 40 mg every 8 hours Full code Lovenox for DVT prophylaxis Acute on chronic anemia Monitor hemoglobin Sepsis, with septic shock -Secondary to pneumonia -Levophed, maintain MAP greater than 65 -Follow cultures Pneumonia, as above ELISA on CKD, monitor Full code GI prophylaxis Protonix PDMP PDMP Reviewed: Not Reviewed Attestations 2 Medical Necessity Statement*: Patient requires hospitalization for acute hypoxic respiratory failure secondary to COPD, pneumonia, with septic shock Diagnoses CKD (chronic kidney disease) N18.9 Anemia D64.9 Chronic obstructive pulmonary disease with acute exacerbation J44.1 COPD type: COPD with acute exacerbation Hypoxia R09.02 Chronic hypercapnic respiratory failure J96.12 Acute respiratory failure with hypoxia and hypercapnia J96.01; J96.02 Acute exacerbation of chronic obstructive airways disease J44.1 Respiratory failure J96.21; J96.22 Chronicity: acute on chronic Respiratory failure complication: hypoxia and hypercapnia Respiratory failure requiring intubation J96.90 Pneumonia J18.9 Septic shock A41.9; R65.21
[2024-07-18 16:03] LABS: Troponin 5 6HR 19.57 ng/L (0-10); Troponin 5 6HR Delta -1.43 ng/L (0-12)
[2024-07-18] MEDS: fentaNYL 1,000 MCG/100 ML BAG 7.5 MCG IV (17:00)
[2024-07-18] MEDS: propofol 1,000 MG/100 ML INJ 15.55 MG IV ×2 (17:02→23:43)
--- NOTE | 2024-07-18 17:28 | PC.NURSE ---
Educated patients daughter at bedside on importance of PICC line access while utilizing levophed for blood pressure support. Patient states her father, patients does not want patient to have a PICC line. Patients daughter states patients would prefer her to have a central line if absolutely necessary. Explained risks of central line verses PICC. Patient maintains refusal of PICC line placement stating, she has had a central line in her neck before without problems. Dr. Pandya notified via voalte.
[2024-07-18] MEDS: budesonide 0.5 mg/2 mL Neb INHALATION (19:39)
[2024-07-18] MEDS: vancomycin 500 MG in sodium chloride 0.9% (plus) 100 ML 200 MG IV (22:55)
[2024-07-19] VITALS (111 sets, daily range): BP systolic 82–125; BP diastolic 53–81; PULSE 78–128; RESP 11–21; TEMP 37.1; O2SAT 85–100
[2024-07-19] MEDS: ipratropium-albuterol 3 mL Neb INHALATION ×7 (01:16→23:17)
[2024-07-19] MEDS: piperacillin-tazobactam 3.375 GM in sodium chloride 0.9% (plus) 50 ML IV ×3 (01:19→17:11)
[2024-07-19 03:53] LABS: ABG PCO2 28.7 mmHg (35-45); Blood Gas Allen Test Pos
[2024-07-19 04:38] LABS: ABG PH Result 7.44 (7.35-7.45); Arterial Blood Gas Hematocrit 32.6 % (37-47); Base Excess ABG 16.1 mmol/L (-2.0-2.0); Blood Gas Operator Identificat JDB; Blood Gas Sample Site Radial, right; Blood Gas Sample Type Arterial; Blood Gas Tidal Volume 0.35; HCO3 ABG 42.8 mmol/L (22-26); Oxygen Device VENT; PO2 ABG 62.9 mmHg (80.0-100.0); PO2 FiO2 Ratio Arterial Blood 157
[2024-07-19 05:14] LABS: Basophils % 0.1 %; Hematocrit 30.6 % (36-47); Lymphocytes # 0.6 10^3/uL (0.8-4.8); Lymphocytes % 3.7 %; Mean Corpuscular HGB Conc 30.7 g/dL (30-55); Mean Corpuscular Hemoglobin 29.8 pg (27-33); Mean Corpuscular Volume 97.1 fl (85-98); Monocytes # 0.4 10^3/uL (0.2-0.9); Monocytes % 2.6 %; Neutrophils # 14.39 10^3/uL (1.8-7.7); Neutrophils % 93.1 %; Nucleated Red Blood Cells % 0 %; Platelet Count 168 10^3/cmm (157-399); Red Blood Count 3.15 10^6/uL (3.85-5.65); Red Cell Distribution Width 13.5 % (12.1-15.1); White Blood Count 15.46 10^3/uL (3.29-11.43)
[2024-07-19 05:32] LABS: Alanine Aminotransferase < 5 U/L (0-33); Albumin Level 3.3 g/dL (3.5-5.2); Alkaline Phosphatase 66 U/L (35-105); Anion Gap 12.8 (5-19); Aspartate Amino Transferase 7 U/L (0-32); Blood Urea Nitrogen 24 mg/dL (6-20); C Reactive Protein 15.3 mg/L (0.0-4.9); Calcium 9.2 mg/dL (8.5-10.5); Carbon Dioxide 37 mmol/L (22-29); Chloride 93 mmol/L (98-107); Globulin 2.8 g/dL (1.3-4.6); Glomerular Filtration Rate 57.6 mL/min (90-130); Glucose 140 mg/dL (65-115); Magnesium 1.9 mg/dL (1.7-2.3); Osmolality Calculated 294 mOsm/kg (285-295); Phosphorus 3.3 mg/dL (2.5-4.5); Potassium 3.8 mmol/L (3.5-5.1); Sodium 139 mmol/L (136-145); Total Bilirubin 0.2 mg/dL (0.15-1.2); Total Protein 6.1 g/dL (6.6-8.7)
[2024-07-19 05:41] LABS: NT Pro B Type Natriuretic Pept 247 pg/mL (0-125); Procalcitonin 0.07 ng/mL (0-0.5)
[2024-07-19] MEDS: fentaNYL 1,000 MCG/100 ML BAG 7.5 MCG IV (06:33)
[2024-07-19] MEDS: propofol 1,000 MG/100 ML INJ 15.55 MG IV (06:34)
--- NOTE | 2024-07-19 06:46 | PC.NURSE ---
Patient awake, sitting up in bed, pulling at restraints. Patient calmed so that she lay flat in bed , follows commands, sedation increased for patient comfort as patient continued to pull at restraints and turn head back and forth.
--- NOTE | 2024-07-19 07:00 | XRR_ITS ---
PROCEDURE INFORMATION: Exam: XR Chest Exam date and time: 07/19/2024 7:44 AM Age: 53 years old Clinical indication: Shortness of breath; Additional info: SOB TECHNIQUE: Imaging protocol: Radiologic exam of the chest. Views: 1 view. COMPARISON: CR (CHEST, ) 07/17/2024 7:10 PM FINDINGS: Lungs: Mild centrilobular emphysematous changes are present. There is no evidence of focal pulmonary consolidation. Pleural spaces: Blunting of bilateral costophrenic angles suggestive of small pleural effusions. Heart/Mediastinum: Unremarkable. No cardiomegaly. Bones/joints: Mild degenerative disease of bilateral acromioclavicular joints. XR/XR chest 1V portable [id number] IMPRESSION: Small bilateral pleural effusions.
[2024-07-19] MEDS: budesonide 0.5 mg/2 mL Neb INHALATION ×2 (07:49→19:47)
[2024-07-19] MEDS: methylPREDNISolone sod succ 40 mg/mL INJ IVP ×2 (08:05→21:13)
[2024-07-19] MEDS: pantoprazole 40 mg SDV IVP ×2 (08:06→17:11)
[2024-07-19] MEDS: heparin 5,000 unit/mL INJ 1 mL 5000 UNIT SUBCUT ×2 (08:06→21:13)
--- NOTE | 2024-07-19 09:26 | PC.NURSE ---
Weaning sedation for spontaneous breathing trial.
[2024-07-19] MEDS: vancomycin 500 MG in sodium chloride 0.9% (plus) 100 ML 200 MG IV ×2 (09:48→21:13)
--- NOTE | 2024-07-19 12:11 | PC.NURSE ---
Extubated 1159 Patient extubated to 6L NC. 2RT and this RN at bedside.
--- NOTE | 2024-07-19 13:31 | PC.NURSE ---
Addendum entered by JESSENIA Mcmanus RN 07/19/24 18:05: witness of waste meds Original Note: JESSENIA Mcmanus RN witness to waste of fentanyl and propofol.
--- NOTE | 2024-07-19 15:02 | P.PN_ITS ---
Subjective 2 Subjective: Patient was examined multiple times throughout the morning and into the afternoon -Reviewed the morning she was seen in -She was on minimal sedation, and is abl e to follow commands, on 2 of Levophed afebrile overnight maps greater than 65, -Placed on spontaneous breathing trial -Patient seen during spot his breathing trial, she is doing well, no episodes of tachycardia she is off Levophed she can follow all commands -Discussed with daughter at bedside, david agustin on extubating her today, discussed the risk of reintubation, patient's daughter voiced understanding, all questions answered, mono also noted to indicate that she understood, she is following all commands -Patient was extubated to nasal cannula, seen, daughter at bedside, she is alert awake, following all commands, -Discussed with family plan on BiPAP as needed during the day, scheduled during the night or if they could bring in her home trilogy would prefer for her to use at Vitals/I&O/Wt Last Vital Signs Temp 98.8 F 07/19/24 12:00 Pulse 100 07/19/24 14:48 Resp 11 L 07/19/24 10:58 BP 101/68 07/19/24 14:00 Pulse Ox 93 07/19/24 14:00 O2 Del Method Nasal Cannula 07/19/24 14:00 O2 Flow Rate 6 07/19/24 12:00 FiO2 40 07/19/24 10:58 07/19/24 07/19/24 07/19/24 06:59 14:59 22:59 Intake Total 429.567 / 1234.932 225.047 / 225.047 Output Total 275 / 535 Balance 154.567 / 699.932 225.047 / 225.047 Weight last 48 hrs Weight 60.373 kg Weight 58.876 kg Weight 58.876 kg Weight 57.606 kg Physical Exam 2 Const: COMMON NORMALS: no acute distress Eye: COMMON NORMALS: Equal, round and reactive pupils present PUPIL: Yes Equal, round and reactive pupils present Resp: COMMON NORMALS: normal respiratory effort, No retractions and No use of accessory muscles AUSCULTATION: crackles and wheezes Cardio: COMMON NORMALS: regular rate, regular rhythm, S1 normal heart sound present and S2 normal heart sound present RATE: regular rate RHYTHM: r egular rhythm HEART SOUNDS: S1 normal heart sound present and S2 normal heart sound present GI: COMMON NORMALS: Normal to inspection, nondistended, normoactive bowel sounds present and non-tender Extremity: COMMON NORMALS: no pedal edema Neuro: OTHER: Alert oriented x 2, can follow commands Urinary Catheter Management: Dee: Cath Placed During This Visit: yes Reason for Continuing Indwelling Catheter: Accurate Measurement of Urinary Output in Critically Ill Patients Urinary Catheter Date of Insertion: 07/17/24 Urinary Catheter Time of Insertion: 19:24 Data 07/19/24 04:45 07/19/24 04:45 Micro: Microbiology 07/18/24 10:41 Urine Culture - Preliminary Urine,Clean Catch 07/18/24 11:40 Blood Culture - Preliminary Blood NEGATIVE TO DATE 07/18/24 09:37 Blood Culture - Preliminary Blood NEGATIVE TO DATE 07/17/24 19:50 Gram Stain - Final Sputum - Endotracheal Tube Aspirate A&P Assessment and plan (1) CKD (chronic kidney disease): (2) Anemia: (3) COPD (chronic obstructive pulmonary disease): Qualifiers: COPD type: COPD with acute exacerbation Qualified Code(s): J44.1 - Chronic obstructive pulmonary disease with (acute) exacerbation (4) Hypoxia: (5) Chronic hypercapnic respiratory failure: (6) Acute respiratory failure with hypoxia and hypercapnia: (7) Acute exacerbation of chronic obstructive airways disease: (8) Respiratory failure: Qualifiers: Chronicity: acute on chronic Respiratory failure complication: hypoxia and hypercapnia Qualified Code(s): J96.21 - Acute and chronic respiratory failure with hypoxia; J96.22 - Acute and chronic respiratory failure with hypercapnia (9) COPD (chronic obstructive pulmonary disease): (10) Respiratory failure requiring intubation: (11) Pneumonia: (12) Septic shock: Plan Acute hypoxic hypercarbic respiratory failure Secondary to Acute COPD exacerbation With history of home vent dependent trilogy, active smoker history of recurrent COPD exacerbations Concerns for pneumonia, has thick respiratory secretions, elevated lactic acid, leukocytosis Plan Status post extubation 07/19/2024 onto nasal cannula BiPAP/trilogy as needed during the day, scheduled during the night 1 dose IV Lasix today Vancomycin Zosyn Blood cultures Sputum cultures DuoNeb Budesonide IV Solu-Medrol 40 mg every 8 hours Full code Lovenox for DVT prophylaxis Acute on chronic anemia Monitor hemoglobin Sepsis, with septic shock, resolving, off Levophed by the afternoon -Secondary to pneumonia -Levophed, maintain MAP greater than 65 -Follow cultures Pneumonia, as above ELISA on CKD, monitor Full code GI prophylaxis Protonix PDMP PDMP Reviewed: Not Reviewed Attestations 2 Medical Necessity Statement*: Patient requires hospitalization for acute hypoxic respiratory failure secondary COPD, pneumonia, septic shock Coding Level of Care Code Critical Care >/= 30 minutes Critical care time (in minutes): 45 The high probability of a clinically significant, sudden or life threatening deterioration, as referenced in this documentation, required my full and direct attention, intervention and personal management. The critical care time shown is in addition to time spent performing any reported separately billable procedures and includes the following: [x] Data and vital sign review and interpretation [x ] Patient assessment, examination and intervention [x] Medication orders and management [x] Patient/Family updates as able [x] Care Coordination and Documentation. Diagnoses CKD (chronic kidney disease) N18.9 Anemia D64.9 Chronic obstructive pulmonary disease with acute exacerbation J44.1 COPD type: COPD with acute exacerbation Hypoxia R09.02 Chronic hypercapnic respiratory failure J96.12 Acute respiratory failure with hypoxia and hypercapnia J96.01; J96.02 Acute exacerbation of chronic obstructive airways disease J44.1 Respiratory failure J96.21; J96.22 Chronicity: acute on chronic Respiratory failure complication: hypoxia and hypercapnia Respiratory failure requiring intubation J96.90 Pneumonia J18.9 Septic shock A41.9; R65.21
[2024-07-19] MEDS: FUROsemide 10 mg/mL SDV 4mL 40 MG IVP (16:28)
[2024-07-19] MEDS: acetaminophen 500 mg Tablet PO (18:40)
[2024-07-20] VITALS (67 sets, daily range): BP systolic 89–136; BP diastolic 58–103; PULSE 74–109; RESP 16–26; TEMP 36.4–36.8; O2SAT 65–100
[2024-07-20] MEDS: piperacillin-tazobactam 3.375 GM in sodium chloride 0.9% (plus) 50 ML IV ×3 (01:44→18:00)
[2024-07-20] MEDS: ipratropium-albuterol 3 mL Neb INHALATION ×6 (03:35→23:18)
[2024-07-20 05:19] LABS: Hematocrit 30.8 % (36-47); Lymphocytes # 0.7 10^3/uL (0.8-4.8); Lymphocytes % 5.9 %; Mean Corpuscular HGB Conc 31.2 g/dL (30-55); Mean Corpuscular Hemoglobin 30.2 pg (27-33); Mean Corpuscular Volume 96.9 fl (85-98); Mean Platelet Volume 11.5 fL (7.4-10.4); Monocytes # 0.4 10^3/uL (0.2-0.9); Monocytes % 3.3 %; Neutrophils # 10.55 10^3/uL (1.8-7.7); Neutrophils % 90.5 %; Nucleated Red Blood Cells % 0 %; Platelet Count 156 10^3/cmm (157-399); Red Blood Count 3.18 10^6/uL (3.85-5.65); Red Cell Distribution Width 13.9 % (12.1-15.1); White Blood Count 11.67 10^3/uL (3.29-11.43)
[2024-07-20 05:39] LABS: Lactate (Lactic Acid level) 1.5 mmol/L (0.5-2.2)
[2024-07-20 05:41] LABS: Alanine Aminotransferase < 5 U/L (0-33); Albumin Level 3.4 g/dL (3.5-5.2); Alkaline Phosphatase 56 U/L (35-105); Anion Gap 14.6 (5-19); Aspartate Amino Transferase 13 U/L (0-32); Blood Urea Nitrogen 31 mg/dL (6-20); C Reactive Protein 7.2 mg/L (0.0-4.9); Calcium 8.7 mg/dL (8.5-10.5); Carbon Dioxide 37 mmol/L (22-29); Chloride 90 mmol/L (98-107); Globulin 2.5 g/dL (1.3-4.6); Glomerular Filtration Rate 57.6 mL/min (90-130); Glucose 127 mg/dL (65-115); Magnesium 1.9 mg/dL (1.7-2.3); Osmolality Calculated 294 mOsm/kg (285-295); Phosphorus 3.4 mg/dL (2.5-4.5); Potassium 3.6 mmol/L (3.5-5.1); Sodium 138 mmol/L (136-145); Total Bilirubin 0.3 mg/dL (0.15-1.2); Total Protein 5.9 g/dL (6.6-8.7)
[2024-07-20 05:45] LABS: NT Pro B Type Natriuretic Pept 230 pg/mL (0-125); Procalcitonin 0.09 ng/mL (0-0.5)
[2024-07-20] MEDS: acetaminophen 500 mg Tablet PO (07:28)
[2024-07-20] MEDS: budesonide 0.5 mg/2 mL Neb INHALATION ×2 (08:21→20:00)
[2024-07-20] MEDS: pantoprazole 40 mg SDV IVP ×2 (09:23→18:00)
[2024-07-20] MEDS: methylPREDNISolone sod succ 40 mg/mL INJ IVP ×2 (09:26→20:55)
[2024-07-20] MEDS: heparin 5,000 unit/mL INJ 1 mL 5000 UNIT SUBCUT ×2 (09:28→20:55)
[2024-07-20 09:38] LABS: Vancomycin Trough 18.8 ug/mL (10-15)
[2024-07-20] MEDS: vancomycin 500 MG in sodium chloride 0.9% (plus) 100 ML 200 MG IV (11:25)
--- NOTE | 2024-07-20 15:03 | PM.PN ---
Subjective Subjective: Hospital course, labs appreciated. Seen with daughter at bedside. Patient sitting in chair. States he is feeling a lot better. At home she is on 6 to 8 L of oxygen supplementation. Currently on 6 L saturating more than 92%. Denies any nausea, vomiting, headache. Vitals/I&O/Wt Last Vital Signs Temp 98.2 F 07/20/24 13:43 Pulse 99 07/20/24 12:45 Resp 22 H 07/20/24 12:45 BP 101/81 07/20/24 13:00 Pulse Ox 92 07/20/24 12:45 O2 Del Method Nasal Cannula 07/20/24 11:45 O2 Flow Rate 6 07/20/24 11:45 FiO2 35 07/20/24 03:34 07/20/24 07/20/24 07/20/24 06:59 14:59 22:59 Intake Total 630 / 1794.005 400 / 400 Output Total 1000 / 3200 900 / 900 Balance -370 / -1405.995 -500 / -500 Weight last 48 hrs Weight 59 kg Weight 60.373 kg Physical Exam Const: COMMON NORMALS: no acute distress GENERAL APPEARANCE: cooperative, comfortable and well developed ORIENTATION/CONSCIOUSNESS: Yes awake, Yes oriented to person and Yes oriented to time Eye: COMMON NORMALS: Equal, round and reactive pupils present PUPIL: Yes Equal, round and reactive pupils present Lymph: LYMPHATIC: no lymphadenopathy noted Resp: COMMON NORMALS: normal respiratory effort, No retractions and No use of accessory muscles AUSCULTATION: crackles and wheezes Cardio: COMMON NORMALS: regular rate, regular rhythm, S1 normal heart sound present and S2 normal heart sound present RATE: regular rate RHYTHM: regular rhythm HEART SOUNDS: S1 normal heart sound present and S2 normal heart sound present GI: COMMON NORMALS: Normal to inspection, nondistended, normoactive bowel sounds present and non-tender : COMMON NORMALS: Yes no CVA tenderness BLADDER/KIDNEY EXAM: Yes no CVA tenderness Back/Pelvis: COMMON NORMALS: no CVA tenderness Extremity: COMMON NORMALS: no pedal edema Neuro: SENSORIUM/ORIENTATION: Yes oriented to person and Yes oriented to time OTHER: Alert oriented x 2, can follow commands Urinary Catheter Management: Dee: Cath Placed During This Visit: yes Reason for Continuing Indwelling Catheter: Accurate Measurement of Urinary Output in Critically Ill Patients Urinary Catheter Date of Insertion: 07/17/24 Urinary Catheter Time of Insertion: 19:24 Data 07/20/24 04:32 07/20/24 04:32 Micro: Microbiology 07/17/24 19:50 Gram Stain - Final Sputum - Endotracheal Tube Aspirate Sputum Culture - Final 07/19/24 10:15 Gram Stain - Final Sputum - Endotracheal Tube Aspirate Sputum Culture - Preliminary 07/18/24 10:41 Urine Culture - Final Urine,Clean Catch 07/18/24 11:40 Blood Culture - Preliminary Blood NEGATIVE TO DATE A&P Assessment and plan (1) Respiratory failure requiring intubation: (2) Acute respiratory failure with hypoxia and hypercapnia: (3) Acute exacerbation of chronic obstructive airways disease: (4) Pneumonia: (5) Chronic hypercapnic respiratory failure: (6) CKD (chronic kidney disease): (7) Anemia: (8) COPD (chronic obstructive pulmonary disease): Qualifiers: COPD type: COPD with acute exacerbation Qualified Code(s): J44.1 - Chronic obstructive pulmonary disease with (acute) exacerbation (9) Hypoxia: (10) Respiratory failure: Qualifiers: Chronicity: acute on chronic Respiratory failure complication: hypoxia and hypercapnia Qualified Code(s): J96.21 - Acute and chronic respiratory failure with hypoxia; J96.22 - Acute and chronic respiratory failure with hypercapnia (11) Septic shock: Plan Acute On chronic hypoxic hypercarbic respiratory failure: In setting of COPD exacerbation. Extubated 07/19. Supplementation keeping saturation over 88%. DuoNeb every 4 hour, Pulmicort twice daily. Follow-up sputum culture. Wean Solu-Medrol 40 mg every 12 hourly. Check MRSA swab. Continue IV vancomycin and Zosyn for now. De-escalate as per sputum culture results. If MRSA swab is negative will discontinue vancomycin. Aggressive pulmonary toilet with incentive spirometry. Septic shock: Resolved. Keep mean artery pressure 65. Physical therapy. Advance diet as per speech evaluation. Full code Regular diet Protonix for PUD prophylaxis Heparin 5000 Q12 hourly for DVT prophylaxis Restart other chronic home psychotropic medication Transfer to [facility] floor. PDMP PDMP Reviewed: Not Reviewed Attestations Medical Necessity Statement*: Requires further hospitalization for management of acute on chronic hypoxic and hypercapnic respiratory failure in setting of COPD exacerbation, postextubation Diagnoses Respiratory failure requiring intubation J96.90 Acute respiratory failure with hypoxia and hypercapnia J96.01; J96.02 Acute exacerbation of chronic obstructive airways disease J44.1 Pneumonia J18.9 Chronic hypercapnic respiratory failure J96.12 CKD (chronic kidney disease) N18.9 Anemia D64.9 Chronic obstructive pulmonary disease with acute exacerbation J44.1 COPD type: COPD with acute exacerbation Hypoxia R09.02 Respiratory failure J96.21; J96.22 Chronicity: acute on chronic Respiratory failure complication: hypoxia and hypercapnia Septic shock A41.9; R65.21
[2024-07-20] MEDS: scopolamine 1 mg PATCH 1 PATCH TRANSDERMA (23:03)
[2024-07-21] VITALS (21 sets, daily range): BP systolic 98–133; BP diastolic 63–86; PULSE 73–98; RESP 17–20; TEMP 36.5–36.9; O2SAT 94–99
[2024-07-21] MEDS: piperacillin-tazobactam 3.375 GM in sodium chloride 0.9% (plus) 50 ML IV ×3 (02:57→17:55)
[2024-07-21] MEDS: ipratropium-albuterol 3 mL Neb INHALATION ×6 (03:16→22:30)
[2024-07-21 06:15] LABS: Hematocrit 31.2 % (36-47); Lymphocytes # 0.5 10^3/uL (0.8-4.8); Lymphocytes % 6.3 %; Mean Corpuscular HGB Conc 30.8 g/dL (30-55); Mean Corpuscular Hemoglobin 30.1 pg (27-33); Mean Corpuscular Volume 97.8 fl (85-98); Mean Platelet Volume 11.6 fL (7.4-10.4); Monocytes # 0.4 10^3/uL (0.2-0.9); Monocytes % 5.2 %; Neutrophils # 6.79 10^3/uL (1.8-7.7); Nucleated Red Blood Cells % 0 %; Platelet Count 159 10^3/cmm (157-399); Red Blood Count 3.19 10^6/uL (3.85-5.65); Red Cell Distribution Width 13.7 % (12.1-15.1); White Blood Count 7.72 10^3/uL (3.29-11.43)
[2024-07-21 06:36] LABS: Alanine Aminotransferase 16 U/L (0-33); Albumin Level 3.6 g/dL (3.5-5.2); Alkaline Phosphatase 56 U/L (35-105); Anion Gap 11.6 (5-19); Aspartate Amino Transferase 28 U/L (0-32); Blood Urea Nitrogen 25 mg/dL (6-20); Calcium 8.8 mg/dL (8.5-10.5); Carbon Dioxide 39 mmol/L (22-29); Chloride 94 mmol/L (98-107); Globulin 2.3 g/dL (1.3-4.6); Glomerular Filtration Rate 51.6 mL/min (90-130); Glucose 153 mg/dL (65-115); Osmolality Calculated 299 mOsm/kg (285-295); Phosphorus 3.6 mg/dL (2.5-4.5); Potassium 3.6 mmol/L (3.5-5.1); Sodium 141 mmol/L (136-145); Total Bilirubin 0.2 mg/dL (0.15-1.2); Total Protein 5.9 g/dL (6.6-8.7)
[2024-07-21] MEDS: acetaminophen 500 mg Tablet PO ×2 (07:30→21:07)
[2024-07-21] MEDS: budesonide 0.5 mg/2 mL Neb INHALATION ×2 (07:37→19:44)
[2024-07-21] MEDS: pantoprazole 40 mg SDV IVP ×2 (09:52→17:56)
[2024-07-21] MEDS: heparin 5,000 unit/mL INJ 1 mL 5000 UNIT SUBCUT ×2 (09:52→21:08)
[2024-07-21] MEDS: buPROPion XL (24 HR) 150 mg Tablet PO (09:53)
[2024-07-21] MEDS: methylPREDNISolone sod succ 40 mg/mL INJ IVP (09:53)
--- NOTE | 2024-07-21 13:39 | P.PN_ITS ---
Subjective 2 Subjective: No acute events overnight. Patient complaining of cough. States he has a cough she was not able to sleep much. Currently on 6 L of oxygen supplementation saturating more than 95%. Vitals/I&O/Wt Last Vital Signs Temp 97.7 F 07/21/24 11:17 Pulse 81 07/21/24 11:17 Resp 18 07/21/24 11:17 BP 98/63 07/21/24 11:17 Pulse Ox 97 07/21/24 11:17 O2 Del Method Nasal Cannula 07/21/24 11:17 O2 Flow Rate 6 07/21/24 11:17 FiO2 35 07/20/24 23:10 07/20/24 07/21/24 07/21/24 22:59 06:59 14:59 Intake Total 1040 / 1440 530 / 530 Balance 1040 / 540 530 / 530 Weight last 48 hrs Weight 58.995 kg Weight 59 kg Physical Exam 2 Const: COMMON NORMALS: no acute distress GENERAL APPEARANCE: cooperative, comfortable and well developed ORIENTATION/CONSCIOUSNESS: Yes awake, Yes oriented to person, Yes oriented to place and Yes oriented to time Eye: COMMON NORMALS: Equal, round and reactive pupils present PUPIL: Yes Equal, round and reactive pupils present Lymph: LYMPHATIC: no lymphadenopathy noted Resp: COMMON NORMALS: normal respiratory effort, No retractions and No use of accessory muscles AUSCULTATION: crackles and wheezes Cardio: COMMON NORMALS: regular rate, regular rhythm, S1 normal heart sound present and S2 normal heart sound present RATE: regular rate RHYTHM: r egular rhythm HEART SOUNDS: S1 normal heart sound present and S2 normal heart sound present GI: COMMON NORMALS: Normal to inspection, nondistended, normoactive bowel sounds present and non-tender : COMMON NORMALS: Yes no CVA tenderness BLADDER/KIDNEY EXAM: Yes no CVA tenderness Back/Pelvis: COMMON NORMALS: no CVA tenderness Extremity: COMMON NORMALS: no pedal edema Neuro: SENSORIUM/ORIENTATION: Yes oriented to person, Yes oriented to place and Yes oriented to time Urinary Catheter Management: Dee: Cath Placed During This Visit: yes Reason for Continuing Indwelling Catheter: Accurate Measurement of Urinary Output in Critically Ill Patients Urinary Catheter Date of Insertion: 07/17/24 Urinary Catheter Time of Insertion: 19:24 Data 07/21/24 05:00 07/21/24 05:00 Micro: Microbiology 07/19/24 10:15 Gram Stain - Final Sputum - Endotracheal Tube Aspirate Sputum Culture - Final 07/17/24 19:50 Gram Stain - Final Sputum - Endotracheal Tube Aspirate Sputum Culture - Final 07/18/24 10:41 Urine Culture - Final Urine,Clean Catch A&P Assessment and plan (1) Respiratory failure requiring intubation: (2) Acute respiratory failure with hypoxia and hypercapnia: (3) Acute exacerbation of chronic obstructive airways disease: (4) Pneumonia: (5) Chronic hypercapnic respiratory failure: (6) CKD (chronic kidney disease): (7) Anemia: (8) COPD (chronic obstructive pulmonary disease): Qualifiers: COPD type: COPD with acute exacerbation Qualified Code(s): J44.1 - Chronic obstructive pulmonary disease with (acute) exacerbation (9) Hypoxia: (10) Respiratory failure: Qualifiers: Chronicity: acute on chronic Respiratory failure complication: hypoxia and hypercapnia Qualified Code(s): J96.21 - Acute and chronic respiratory failure with hypoxia; J96.22 - Acute and chronic respiratory failure with hypercapnia (11) Septic shock: Plan Acute On chronic hypoxic hypercarbic respiratory failure: In setting of COPD exacerbation. Extubated 07/19. Supplementation keeping saturation over 88%. Baseline 6 L. DuoNeb every 4 hour, Pulmicort twice daily. Follow-up sputum culture. Wean Solu-Medrol IV daily. Will plan to discharge on steroid taper. MRSA swab negative. DC vancomycin. Continue with Zosyn for now. De-escalate as per sputum culture results. Aggressive pulmonary toilet with incentive spirometry. Robitussin every 4 hours as needed for cough. Septic shock: Resolved. Keep mean artery pressure 65. Physical therapy. Advance diet as per speech evaluation. Full code Regular diet Protonix for PUD prophylaxis Heparin 5000 Q12 hourly for DVT prophylaxis Continue other chronic medications including bupropion. Add melatonin 3 mg at bedtime. Appreciate physical therapy evaluation. PDMP PDMP Reviewed: Not Reviewed Attestations 2 Medical Necessity Statement*: Requires further hospitalization for management of acute on chronic hypoxic and hypercapnic respiratory failure in setting of COPD exacerbation, pneumonia, postextubation status. Diagnoses Respiratory failure requiring intubation J96.90 Acute respiratory failure with hypoxia and hypercapnia J96.01; J96.02 Acute exacerbation of chronic obstructive airways disease J44.1 Pneumonia J18.9 Chronic hypercapnic respiratory failure J96.12 CKD (chronic kidney disease) N18.9 Anemia D64.9 Chronic obstructive pulmonary disease with acute exacerbation J44.1 COPD type: COPD with acute exacerbation Hypoxia R09.02 Respiratory failure J96.21; J96.22 Chronicity: acute on chronic Respiratory failure complication: hypoxia and hypercapnia Septic shock A41.9; R65.21
[2024-07-21] MEDS: MELATONIN 3 MG TABLET PO (21:08)
[2024-07-22] VITALS (10 sets, daily range): BP systolic 93–128; BP diastolic 63–72; PULSE 67–85; RESP 17–18; TEMP 36.5–36.8; O2SAT 93–98
[2024-07-22] MEDS: piperacillin-tazobactam 3.375 GM in sodium chloride 0.9% (plus) 50 ML IV ×2 (02:36→09:33)
[2024-07-22] MEDS: acetaminophen 500 mg Tablet PO (04:35)
[2024-07-22] MEDS: ipratropium-albuterol 3 mL Neb INHALATION ×3 (05:15→11:01)
[2024-07-22 05:42] LABS: Basophils % 0.1 %; Eosinophils # 0.1 10^3/uL (0.0-0.8); Eosinophils % 0.7 %; Hematocrit 32.4 % (36-47); Lymphocytes # 2.5 10^3/uL (0.8-4.8); Lymphocytes % 23.4 %; Mean Corpuscular HGB Conc 29.3 g/dL (30-55); Mean Corpuscular Volume 98.8 fl (85-98); Mean Platelet Volume 11.7 fL (7.4-10.4); Monocytes # 0.9 10^3/uL (0.2-0.9); Monocytes % 8.5 %; Neutrophils # 7.02 10^3/uL (1.8-7.7); Neutrophils % 66.6 %; Nucleated Red Blood Cells % 0 %; Platelet Count 169 10^3/cmm (157-399); Red Blood Count 3.28 10^6/uL (3.85-5.65); Red Cell Distribution Width 13.7 % (12.1-15.1); White Blood Count 10.54 10^3/uL (3.29-11.43)
[2024-07-22 06:02] LABS: Alanine Aminotransferase 33 U/L (0-33); Albumin Level 3.4 g/dL (3.5-5.2); Alkaline Phosphatase 53 U/L (35-105); Anion Gap 11.2 (5-19); Aspartate Amino Transferase 23 U/L (0-32); Blood Urea Nitrogen 23 mg/dL (6-20); Calcium 8.6 mg/dL (8.5-10.5); Carbon Dioxide 36 mmol/L (22-29); Chloride 96 mmol/L (98-107); Globulin 2.2 g/dL (1.3-4.6); Glomerular Filtration Rate 51.6 mL/min (90-130); Glucose 115 mg/dL (65-115); Osmolality Calculated 295 mOsm/kg (285-295); Potassium 3.2 mmol/L (3.5-5.1); Sodium 140 mmol/L (136-145); Total Bilirubin 0.2 mg/dL (0.15-1.2); Total Protein 5.6 g/dL (6.6-8.7)
[2024-07-22] MEDS: budesonide 0.5 mg/2 mL Neb INHALATION (08:00)
--- NOTE | 2024-07-22 08:40 | P.DS_ITS ---
Discharge Providers Date of Admission: 07/17/24 20:14 Date of Discharge: July 22, 2024 Attending Provider at Admission: Narinder Guadarrama MD Attending Provider at Discharge: Haider Velasco MD Primary Care Provider: Marion Gastelum MD Diagnoses at Discharge Discharge Diagnosis (1) Respiratory failure requiring intubation: Status: Acute (2) Acute respiratory failure with hypoxia and hypercapnia: Status: Acute (3) Acute exacerbation of chronic obstructive airways disease: Status: Acute (4) Pneumonia: Status: Acute (5) Chronic hypercapnic respiratory failure: Status: Acute (6) CKD (chronic kidney disease): Status: Chronic (7) Anemia: Status: Acute (8) COPD (chronic obstructive pulmonary disease): Status: Acute Qualifiers: COPD type: COPD with acute exacerbation Qualified Code(s): J44.1 - Chronic obstructive pulmonary disease with (acute) exacerbation (9) Hypoxia: Status: Acute (10) Respiratory failure: Status: Acute Qualifiers: Chronicity: acute on chronic Respiratory failure complication: hypoxia and hypercapnia Qualified Code(s): J96.21 - Acute and chronic respiratory failure with hypoxia; J96.22 - Acute and chronic respiratory failure with hypercapnia (11) Septic shock: Status: Acute Reason for Visit Reason for Visit: SOB Brief History: Estelle Pascual is a 53 year old female with established history of advanced COPD on trelegy home vent, active smoker, chronic hypercapnia with hypoxia with met alkalosis in compensation presented for worsening of shortness of breath today. Patient was 4 L nasal cannula on arrival, was complaining of back pain, insomnia, she was put on BiPAP in the ER however became more somnolent, considering pCO2 above 100 was intubated in the ER. At the time of evaluation patient is intubated and sedated repeat ABG showing improvement of pCO2 around 80s, she is hemodynamic stable, looks euvolemic She has a lot of overall secretions which were suctioned, PEEP 6, FiO2 60% Fentanyl was added on top of propofol, patient was trying to open eyes and moving extremities. She was at propofol 45 Hospital Course Hospital Course She was admitted to the hospital further evaluation and management of acute on chronic hypoxic and hypercapnic respiratory failure and septic shock in setting of COPD exacerbation with concerns for pneumonia. She was admitted to the ICU and was managed on mechanical ventilator. Started on broad-spectrum antibiotics, nebulization treatment and parenteral steroids. Patient responded well to the treatment and was eventually extubated and weaned off pressors. During hospitalization her blood culture and sputum culture remain negative. Patient's oxygen supplementation has been coming down and has been at his [facility] for last 48 hours. She has been discharged in hemodynamically stable condition with advised to wean oxygen supplementation keeping saturation between 88 to 92%. She will be on oral Augmentin and Levaquin for next 5 days. She will be on steroid taper as an outpatient. She will also take Farxiga going forward once daily. Physical Exam Const: COMMON NORMALS: no acute distress GENERAL APPEARANCE: cooperative, comfortable and well developed ORIENTATION/CONSCIOUSNESS: Yes awake, Yes oriented to person, Yes oriented to place and Yes oriented to time Eye: COMMON NORMALS: Equal, round and reactive pupils present PUPIL: Yes Equal, round and reactive pupils present Lymph: LYMPHATIC: no lymphadenopathy noted Resp: COMMON NORMALS: normal respiratory effort, No retractions and No use of accessory muscles AUSCULTATION: crackles and wheezes Cardio: COMMON NORMALS: regular rate, regular rhythm, S1 normal heart sound present and S2 normal heart sound present RATE: regular rate RHYTHM: regular rhythm HEART SOUNDS: S1 normal heart sound present and S2 normal heart sound present GI: COMMON NORMALS: Normal to inspection, nondistended, normoactive bowel sounds present and non-tender : COMMON NORMALS: Yes no CVA tenderness BLADDER/KIDNEY EXAM: Yes no CVA tenderness Back/Pelvis: COMMON NORMALS: no CVA tenderness Extremity: COMMON NORMALS: no pedal edema Neuro: SENSORIUM/ORIENTATION: Yes oriented to person, Yes oriented to place and Yes oriented to time OTHER: Alert oriented x 2, can follow commands Urinary Catheter Management: Dee: Cath Placed During This Visit: yes Reason for Continuing Indwelling Catheter: Accurate Measurement of Urinary O utput in Critically Ill Patients Urinary Catheter Date of Insertion: 07/17/24 Urinary Catheter Time of Insertion: 19:24 Discharge Data Studies Completed and Pending Completed Studies During Hospitalization Category Date Time Status XR chest 1V [id number] Stat Exams 07/17/24 19:09 Completed XR chest 1V portable [id number] Routine Exams 07/19/24 07:00 Completed XR chest 1V portable [id number] Stat Exams 07/17/24 16:25 Completed XR lumbar spine 2-3V* [id number] Stat Exams 07/17/24 16:48 Completed CV. echo complete* [id number] Routine Ultrasound 07/18/24 08:48 Completed Pending at discharge Category Date Time Status Blood Culture Stat Lab 07/18/24 11:40 Results Radiology Impressions Lumbar Spine X-Ray 07/17/24 16:48 IMPRESSION: No acute findings. Chest X-Ray 07/19/24 07:00 IMPRESSION: Small bilateral pleural effusions. Microbiology 07/19/24 10:15 Sputum - Endotracheal Tube Aspirate Gram Stain - Final 07/19/24 10:15 Sputum - Endotracheal Tube Aspirate Sputum Culture - Final 07/17/24 19:50 Sputum - Endotracheal Tube Aspirate Gram Stain - Final 07/17/24 19:50 Sputum - Endotracheal Tube Aspirate Sputum Culture - Final 07/18/24 10:41 Urine,Clean Catch Urine Culture - Final 07/18/24 11:40 Blood Blood Culture - Preliminary NEGATIVE TO DATE 07/18/24 09:37 Blood Blood Culture - Preliminary NEGATIVE TO DATE Laboratory Results WBC 10.54 10^3/uL (3.29-11.43) 07/22/24 04:39 Corrected WBC Loader Operator/Ground Leader 07/17/24 17:16 RBC 3.28 10^6/uL (3.85-5.65) L 07/22/24 04:39 Hgb 9.50 g/dL (11.27-16.99) L 07/22/24 04:39 Hct 32.4 % (36-47) L 07/22/24 04:39 MCV 98.8 fl (85-98) H 07/22/24 04:39 MCH 29.0 pg (27-33) 07/22/24 04:39 MCHC 29.3 g/dL (30-55) L 07/22/24 04:39 RDW 13.7 % (12.1-15.1) 07/22/24 04:39 Plt Count 169 10^3/cmm (157-399) 07/22/24 04:39 MPV 11.7 fL (7.4-10.4) H 07/22/24 04:39 Gran % Loader Operator/Ground Leader 07/17/24 17:16 Neut % (Auto) 66.6 % 07/22/24 04:39 Lymph % (Auto) 23.4 % 07/22/24 04:39 [place] % (Auto) 8.5 % 07/22/24 04:39 Eos % (Auto) 0.7 % 07/22/24 04:39 Baso % (Auto) 0.1 % 07/22/24 04:39 Neut # (Auto) 7.02 10^3/uL (1.8-7.7) 07/22/24 04:39 Lymph # (Auto) 2.5 10^3/uL (0.8-4.8) 07/22/24 04:39 [place] # (Auto) 0.9 10^3/uL (0.2-0.9) 07/22/24 04:39 Eos # (Auto) 0.1 10^3/uL (0.0-0.8) 07/22/24 04:39 Baso # (Auto) 0.0 10^3/uL (0.0-0.1) 07/22/24 04:39 Absolute Gran (auto) Loader Operator/Ground Leader 07/17/24 17:16 Nucleated RBC % (auto) 0 % 07/22/24 04:39 Nucleated RBCs # 0.0 /100WBC 07/22/24 04:39 Specimen Type Arterial 07/19/24 03:34 Sample Site Radial, right 07/19/24 03:34 ABG pH 7.44 (7.35-7.45) 07/19/24 03:34 ABG pCO2 28.7 mmHg (35-45) L 07/19/24 03:34 ABG pO2 62.9 mmHg (80.0-100.0) L 07/19/24 03:34 ABG PO2/FiO2 Ratio 157 07/19/24 03:34 ABG HCO3 42.8 mmol/L (22-26) H 07/19/24 03:34 ABG O2 Saturation 86.3 07/17/24 16:54 ABG Base Excess 16.1 mmol/L (-2.0-2.0) H 07/19/24 03:34 Braxton Test Pos 07/19/24 03:34 A-a O2 Gradient Not Reportable 07/17/24 16:54 Hematocrit 32.6 % (37-47) L 07/19/24 03:34 Hgb O2 Saturation 83.2 % (95-100) L 07/17/24 16:54 Carboxyhemoglobin 2.5 %THgb (0.4-20.1) 07/17/24 16:54 Methemoglobin 1.1 % (0.4-1.5) 07/17/24 16:54 Total Hemoglobin 10.8 g/dL (12-16) L 07/17/24 16:54 Sodium 142.0 mmol/L (131-143) 07/17/24 16:54 Potassium 4.3 mmol/L (3.5-5.0) 07/17/24 16:54 Glucose 139.0 mg/dL (70-115) H 07/17/24 16:54 Ionized Calcium 1.3 mmol/L (1.1-1.4) 07/17/24 16:54 O2 Delivery Device Vent 07/19/24 03:34 O2 Liters/Min 4.0 % 07/17/24 16:54 FiO2 40.0 % 07/19/24 03:34 Tidal Volume 0.35 07/19/24 03:34 PEEP 5.0 cmH20 07/19/24 03:34 Textile Knitter ID [id number] 07/19/24 03:34 Sodium 140 mmol/L (136-145) 07/22/24 04:39 Potassium 3.2 mmol/L (3.5-5.1) L 07/22/24 04:39 Chloride 96 mmol/L (98-107) L 07/22/24 04:39 Carbon Dioxide 36 mmol/L (22-29) H 07/22/24 04:39 Anion Gap 11.2 (5-19) 07/22/24 04:39 BUN 23 mg/dL (6-20) H 07/22/24 04:39 Creatinine 1.1 mg/dL (0.5-0.9) H 07/22/24 04:39 GFR Calculation 51.6 mL/min (90-130) L 07/22/24 04:39 Glucose 115 mg/dL (65-115) 07/22/24 04:39 Calculated Osmolality 295 mOsm/kg (285-295) 07/22/24 04:39 Lactic Acid 2.9 mmol/L (0.5-2.2) H 07/18/24 09:37 Lactic Acid (Sepsis) 2.7 mmol/L (0.5-2.2) H 07/18/24 11:40 Lactate 1.5 mmol/L (0.5-2.2) 07/20/24 04:32 Calcium 8.6 mg/dL (8.5-10.5) 07/22/24 04:39 Phosphorus 3.6 mg/dL (2.5-4.5) 07/21/24 05:00 Magnesium 2.0 mg/dL (1.7-2.3) 07/21/24 05:00 Total Bilirubin 0.2 mg/dL (0.15-1.2) 07/22/24 04:39 AST 23 U/L (0-32) 07/22/24 04:39 ALT 33 U/L (0-33) 07/22/24 04:39 Alkaline Phosphatase 53 U/L (35-105) 07/22/24 04:39 Troponin T Baseline 21 ng/L (0-10) H 07/18/24 09:37 Troponin T 120 Minute 20.89 ng/L (0-10) H 07/18/24 11:40 Delta Troponin T -0.11 ABS# (0-10) L 07/18/24 11:40 Troponin T Hi Sens 6Hr 19.57 ng/L (0-10) H 07/18/24 15:34 Troponin T Hi Sens 6Hr Delta -1.43 ng/L (0-12) L 07/18/24 15:34 C-Reactive Protein 7.2 mg/L (0.0-4.9) H 07/20/24 04:32 NT-Pro-B Natriuret Pep 230 pg/mL (0-125) H 07/20/24 04:32 Total Protein 5.6 g/dL (6.6-8.7) L 07/22/24 04:39 Albumin 3.4 g/dL (3.5-5.2) L 07/22/24 04:39 Globulin 2.2 g/dL (1.3-4.6) 07/22/24 04:39 Procalcitonin 0.09 ng/mL (0-0.5) 07/20/24 04:32 TSH 0.73 uIU/mL (0.27-4.20) 07/17/24 17:28 Urine Color Yellow (Yellow) 07/18/24 10:41 Urine Appearance Clear (CLEAR) 07/18/24 10:41 Urine pH 5.5 (5-7) 07/18/24 10:41 Ur Specific [place] 1.039 (1.005-1.030) H 07/18/24 10:41 Urine Protein 1+ (Negative) A 07/18/24 10:41 Urine Glucose (UA) Negative (Normal) 07/18/24 10:41 Urine Ketones Trace (Negative) 07/18/24 10:41 Urine Blood Negative (Negative) 07/18/24 10:41 Urine Nitrate Negative (Negative) 07/18/24 10:41 Urine Bilirubin Negative (Negative) 07/18/24 10:41 Urine Urobilinogen 1.0 mg/dL (Negative) 07/18/24 10:41 Ur Leukocyte Esterase 1+ (Negative) A 07/18/24 10:41 Urine RBC 0-2 /hpf (0-2) 07/18/24 10:41 Urine WBC 11-20 /hpf (0-5) H 07/18/24 10:41 Ur Squamous Epith Cells 0-5 /hpf (0-5) 07/18/24 10:41 Amorphous Sediment Not Reportable 07/18/24 10:41 Urine Bacteria None seen /hpf (NONE) 07/18/24 10:41 Hyaline Casts 4.95 /lpf 07/18/24 10:41 Nasal MRSA (PCR) Not detected (Not Detecte) 07/18/24 09:00 Vancomycin Trough 18.8 ug/mL (10-15) H 07/20/24 08:59 Influenza A (PCR) Negative (Negative) 07/17/24 17:20 Influenza Type B (PCR) Negative (Negative) 07/17/24 17:20 RSV (PCR) Negative (Negative) 07/17/24 17:20 SARS-CoV-2 (PCR) Negative (Negative) 07/17/24 17:20 Vitals Last Vital Signs Temp 97.7 F 07/22/24 08:00 Pulse 76 07/22/24 08:00 Resp 18 07/22/24 08:00 BP 100/65 07/22/24 08:00 Pulse Ox 95 07/22/24 08:00 O2 Del Method Nasal Cannula 07/22/24 08:00 O2 Flow Rate 5 07/22/24 08:00 FiO2 35 07/20/24 23:10 Discharge Plan Discharge Patient Disposition: Home Condition: Stable Prescriptions: New prednisone 10 mg tablet See Taper PO DIRECTED Qty: 42 0RF Taper: predniSONE 60-10 60 mg Daily for 2 Days and 0 Hour 50 mg Daily for 2 Days and 0 Hour 40 mg Daily for 2 Days and 0 Hour 30 mg Daily for 2 Days and 0 Hour 20 mg Daily for 2 Days and 0 Hour 10 mg Daily for 2 Days and 0 Hour Rx Instructions: see taper instructions levofloxacin 750 mg tablet 750 mg PO Q24H 7 Days Qty: 7 0RF amoxicillin-pot clavulanate 875-125 mg tablet 1 tab PO BID 5 Days Qty: 10 0RF dapagliflozin propanediol [Farxiga] 10 mg tablet 10 mg PO DAILY Qty: 30 0RF Continued varenicline tartrate [Chantix Starting Month Box] 0.5 mg (11)- 1 mg (42) tablets,dose pack See Rx Instructions PO PER PKG DIR Qty: 53 0RF Rx Instructions: PO PER PKG DIR (DME) Portable Oxygen Concentrator 2-4L/NC See Rx Instructions .Route .MEDSUPPLY Qty: 1 0RF Rx Instructions: Continuous oxygen at 2-4L/NC. budesonide-formoterol [Symbicort] 160-4.5 mcg/actuation HFA aerosol inhaler 2 inh inhalation BID Qty: 10.2 5RF tiotropium bromide [Spiriva with HandiHaler] 18 mcg capsule, w/inhalation device 1 cap inhalation DAILY Qty: 60 5RF Rx Instructions: puncture 1 cap using device; one dose = 2 inhalations albuterol sulfate 2.5 mg /3 mL (0.083 %) solution for nebulization 2.5 mg inhalation QID PRN (Reason: Shortness Of Breath Or Wheezing) Qty: 180 5RF albuterol sulfate [Ventolin HFA] 90 mcg/actuation HFA aerosol inhaler 2 puff inhalation QID PRN (Reason: Shortness Of Breath) Qty: 8.5 5RF bupropion HCl 150 mg tablet extended release 24 hr 150 mg PO QAM Qty: 30 3RF potassium chloride 20 mEq tablet,ER particles/crystals See Rx Instructions .ROUTE .COMPLEX Qty: 30 0RF Dose Instruction: TAKE ONE TABLET BY MOUTH DAILY Rx Instructions: TAKE ONE TABLET BY MOUTH DAILY pantoprazole 40 mg Tablet,Delayed Release (Dr/Ec) 40 mg PO BID Qty: 84 0RF sennosides [Senna Lax] 8.6 mg Tablet 8.6 mg PO BID PRN (Reason: Constipation) furosemide 40 mg tablet 20 mg PO DAILY@0800 Qty: 30 3RF Discharge Orders: Discharge Order (Routine); Ordered 07/22/24 Ordered By: Haider Velasco Referrals: Marion Gastelum MD [Primary Care Provider] - 08/04/24 11:20 am Patient Instructions: COPD, Prednisone (By mouth), Amoxicillin/Clavulanate Potassium (By mouth) (Augmentin, Augmentin..., Levofloxacin (By mouth), Dapagliflozin (By mouth), Viral Pneumonia (DC), COPD Stoplight Discharge Attestations Time Spent in Discharge Care*: greater than 30 min Specific Discharge Activities: educating patient, educating and/or supporting family/caregiver, discussing with pcp/other providers, discussing with adult protective caseworker/social workers/dc planners, documenting/other paperwork and evaluating patient/reviewing data Status at Discharge: Cognitive status at discharge: cognitively intact , Behavioral status at discharge: cooperative , Functional status at discharge: uses cane/walker , Overall status at discharge: patient is back to baseline Quality Metrics Clinical Quality Measures [ No reported AMI, CVA or VTE this stay] Coding Level of Care Code 34840 Total time (in minutes) for Discharge: 60 Diagnoses Respiratory failure requiring intubation J96.90 Acute respiratory failure with hypoxia and hypercapnia J96.01; J96.02 Acute exacerbation of chronic obstructive airways disease J44.1 Pneumonia J18.9 Chronic hypercapnic respiratory failure J96.12 CKD (chronic kidney disease) N18.9 Anemia D64.9 Chronic obstructive pulmonary disease with acute exacerbation J44.1 COPD type: COPD with acute exacerbation Hypoxia R09.02 Respiratory failure J96.21; J96.22 Chronicity: acute on chronic Respiratory failure complication: hypoxia and hypercapnia Septic shock A41.9; R65.21
[2024-07-22] MEDS: pantoprazole 40 mg SDV IVP (09:33)
[2024-07-22] MEDS: buPROPion XL (24 HR) 150 mg Tablet PO (09:33)
[2024-07-22] MEDS: methylPREDNISolone sod succ 40 mg/mL INJ IVP (09:33)
[2024-07-22] MEDS: heparin 5,000 unit/mL INJ 1 mL 5000 UNIT SUBCUT (09:33)
--- NOTE | 2024-07-22 11:58 | PC.NURSE ---
Discussed discharge with patient and family. Discussed new medications and especially prednisone and how to taper the medication down every two days. Discussed the COPD stop light with patient and family as well. Discussed NOT to smoke while using oxygen. It is very dangerous to self and others around. Patient stated she was going to try and quit smoking and understood all medications. Medications to [facility].
== END 2024-07-22 11:50 | disposition home or self-care (01) | DRG 871 ==
LOC: ER 19:32 → ICU 20:15 → MEDSURG 07-20 15:07
PROVIDERS: Emergency Medicine; Family Medicine; Physician Assistant; Admitting Provider Internal Medicine; Emergency Provider Emergency Medicine; PCP Family Medicine; Visit Provider Student in an Organized Health Care Education/Training Program
DX: A41.9 Sepsis, unspecified organism (principal); J18.9 Pneumonia, unspecified organism; J96.21 Acute and chronic respiratory failure with hypoxia; R65.21 Severe sepsis with septic shock; J96.22 Acute and chronic respiratory failure with hypercapnia; J44.1 Chronic obstructive pulmonary disease with (acute) exacerbation; J44.0 Chronic obstructive pulmonary disease with (acute) lower respiratory infection; N17.9 Acute kidney failure, unspecified; E87.20 Acidosis, unspecified; N18.9 Chronic kidney disease, unspecified; I12.9 Hypertensive chronic kidney disease with stage 1 through stage 4 chronic kidney disease, or unspecified chronic kidney disease; D63.1 Anemia in chronic kidney disease; W18.30XA Fall on same level, unspecified, initial encounter; M54.9 Dorsalgia, unspecified; K21.9 Gastro-esophageal reflux disease without esophagitis; F41.9 Anxiety disorder, unspecified; F17.210 Nicotine dependence, cigarettes, uncomplicated; Z99.81 Dependence on supplemental oxygen; Z79.51 Long term (current) use of inhaled steroids; Z86.73 Personal history of transient ischemic attack (TIA), and cerebral infarction without residual deficits
CPT/HCPCS: 36415; 36600; 51702; 71045; 72100; 80048; 80051; 80053; 80202; 81001; 82330; 82803; 82805; 83605; 83735; 83880; 84100; 84145; 84443; 84484; 85025; 86140; 87040; 87070; 87086; 87205; 87637; 92507; 92523; 92526; 92610; 93005; 93306; 94002; 94003; 94640; 94660; 94799; 96365; 96372; 96374; 96375; 96376; 97161; 99285; 99291; J0330; J0696; J1644; J1940; J2470; J2543; J2704; J2919; J3010; J3370; J3372; J3490; J7626; J9999

== ENCOUNTER 2024-08-19 12:56 | Outpatient (CLI) | payer MEDICAID, SELFPAY ==
[2024-08-19 13:08] VITALS: PULSE 106; RESP 20; O2SAT 89
[2024-08-19] MEDS: albuterol 2.5 mg/3 mL Neb INHALATION (13:08)
== END 2024-08-19 12:57 | disposition home or self-care (01) ==
LOC: RT 12:57
PROVIDERS: PCP Family Medicine; Visit Provider Family Medicine
DX: R06.09 Other forms of dyspnea (principal)
CPT/HCPCS: 94060; J7613

== ENCOUNTER → 2024-11-12 14:04 | Outpatient (BNVA) | payer MEDICAID, SELFPAY | PROVIDERS: PCP Family Medicine; Visit Provider Family Medicine | DX: N18.9 Chronic kidney disease, unspecified (principal); D64.9 Anemia, unspecified | CPT/HCPCS: 80053; 82728; 83550; 85025 ==

== ENCOUNTER 2024-12-31 14:22 | Outpatient (CLI) | payer MEDICAID, SELFPAY ==
--- NOTE | 2024-12-31 14:28 | CTR_ITS ---
PROCEDURE INFORMATION: Exam: CT Chest Without Contrast; Diagnostic Exam date and time: 12/31/2024 2:34 PM Age: 54 years old Clinical indication: Condition or disease; Lung condition and disease; Copd; Complications not specified; Additional info: Copd/dependence on oxygen/personal HX of nicotine dependence, high resolution TECHNIQUE: Imaging protocol: Diagnostic computed tomography of the chest without contrast. Radiation optimization: All CT scans at this facility use at least one of these dose optimization techniques: automated exposure control; mA and/or kV adjustment per patient size (includes targeted exams where dose is matched to clinical indication); or iterative reconstruction. COMPARISON: CT chest wo con [id number] 03/24/2023 5:48 AM RADIATION DOSE METRICS: Total DLP (mGy-cm): 739.9 FINDINGS: Lungs: Moderate centrilobular emphysematous changes are present. Stable nodule in the anterior segment of the left upper lobe measuring 7 mm (series 3, image 28. There is no evidence of focal pulmonary consolidation. Pleural spaces: Unremarkable. No pneumothorax. No pleural effusion. Heart: Unremarkable. No cardiomegaly. No pericardial effusion. Coronary arteries: There is no evidence of atherosclerotic coronary artery calcifications. Lymph nodes: Unremarkable. No enlarged lymph nodes. Vasculature: The vasculature demonstrates diffuse mild atherosclerotic calcification. Gallbladder and biliary ducts: There has been a cholecystectomy. Bones/joints: The thoracic spine demonstrates mild degenerative changes at multiple levels. Soft tissues: Unremarkable. CT/CT chest con [id number] IMPRESSION: 1. Severe emphysema with stable left upper lobe pulmonary nodule when compared to 2020, no further follow-up is recommended. 2. No acute cardiopulmonary process. COMMENTS: The presence of pulmonary emphysema on CT is an independent risk factor for lung cancer. In the absence of a history or active diagnosis of lung cancer, it is recommended that this patient with emphysema be evaluated for enrollment in a low dose CT lung cancer screening program.
== END 2024-12-31 14:23 | disposition home or self-care (01) ==
LOC: RAD 14:23
PROVIDERS: PCP Family Medicine; Visit Provider Nurse Practitioner Family
DX: J96.11 Chronic respiratory failure with hypoxia (principal); J43.2 Centrilobular emphysema; R91.1 Solitary pulmonary nodule; Z99.81 Dependence on supplemental oxygen; Z87.891 Personal history of nicotine dependence
CPT/HCPCS: 71250

== ENCOUNTER 2025-03-25 18:18 | Emergency (ER) | payer MEDICAID, SELFPAY ==
[2025-03-25] VITALS (8 sets, daily range): BP systolic 96–122; BP diastolic 60–108; PULSE 102–108; RESP 14–18; TEMP 37.2; O2SAT 90–100; BMI 23.6
--- NOTE | 2025-03-25 18:20 | XRR_ITS ---
PROCEDURE INFORMATION: Exam: XR Chest Exam date and time: 03/25/2025 6:37 PM Age: 54 years old Clinical indication: Shortness of breath; Additional info: SOB TECHNIQUE: Imaging protocol: Radiologic exam of the chest. Views: 1 view. COMPARISON: CT chest [facility] [id number] 12/31/2024 2:34 PM FINDINGS: Lungs: There are findings of hyperinflation compatible with COPD emphysema Pleural spaces: No pneumothorax Heart/Mediastinum: Unremarkable. No cardiomegaly. Bones/joints: Unremarkable. Other findings: No focal opacities XR/XR chest 1V portable [id number] IMPRESSION: Hyperinflation suggestive of COPD emphysema no focal opacities.
--- NOTE | 2025-03-25 18:29 | ECG_ITS ---
[facility]: [facility]25[facility]25 Pat Name: Estelle Pascual Department: Room: Gender: Female Unified Communications Architect: : [id number] Requested By: Lo Son Order Number: [id number] Tawanda MD: Taya Villalta M.D. Measurements Intervals [place] Rate: 103 P: 84 CO: 151 QRS: 104 QRSD: 83 T: 75 QT: 236 QTc: 310 Interpretive Statements SINUS TACHYCARDIA INDETERMINATE AXIS NONSPECIFIC T-WAVE ABNORMALITY Compared to ECG 07/18/2024 15:45:19 Indeterminate axis now present T-wave abnormality now present Sinus rhythm no longer present Electronically Signed On 03-27-2025 14:09:20 FROTHING MACHINE OPERATOR by Taya Villalta M.D. [email or web address]
--- NOTE | 2025-03-25 18:38 | W.ED.RECABL ---
HPI - Recheck/Abnormal Lab/Rx General: Chief Complaint: Recheck/Abnormal Lab/Rx Stated Complaint: doc sent. copd labs 47 Co2 Time Seen by Provider: 03/25/25 18:32 Source: patient Mode of arrival: ambulatory Limitations: no limitations History of Present Illness: 54-year-old female has a history of COPD is on 5 to 6 L of oxygen chronically. States over the last week she has had some increasing dyspnea along with cough. Patient denies any pain to me. States she had seen her PCP today and called her due to a high CO2 level on her lab drawl to come to the ER to get checked. She denies any fevers worsening improved factors. Related Data Home Medications ?Medication ?Instructions ?Recorded ?Confirmed arformoterol 15 mcg/2 mL solution 15 mcg inhalation BID 11/12/24 03/25/25 for nebulization budesonide 1 mg/2 mL suspension 1 mg inhalation BID 11/12/24 03/25/25 for nebulization (Pulmicort) revefenacin 175 mcg/3 mL solution 175 mcg inhalation DAILY PRN 11/12/24 03/25/25 for nebulization (Yupelri) Previous Rx's ?Medication ?Instructions ?Recorded Portable Oxygen Concentrator #1 ea 06/18/23 albuterol sulfate 2.5 mg/3 mL 2.5 mg (3 mL) inhalation QID PRN 03/20/24 (0.083 %) solution for nebulization Shortness Of Breath Or Wheezing #180 mL budesonide-formoterol HFA 160 2 inh inhalation BID #10.2 grams 03/20/24 mcg-4.5 mcg/actuation aerosol inhaler (Symbicort) tiotropium bromide 18 mcg capsule 1 cap inhalation DAILY #60 03/20/24 with inhalation device (Spiriva inhalations with HandiHaler) sennosides 8.6 mg tablet (Senna 8.6 mg PO BID PRN Constipation #60 08/27/24 Lax) tabs pantoprazole 40 mg tablet,delayed See Rx Instructions .Route 11/11/24 release .COMPLEX #60 tabs albuterol sulfate 90 mcg/actuation 2 puff inhalation QID PRN 11/12/24 aerosol inhaler (Ventolin HFA) Shortness Of Breath #8.5 grams bupropion HCl 150 mg 24 hr tablet, See Rx Instructions .Route 01/15/25 extended release .COMPLEX #30 tabs dapagliflozin propanediol 10 mg See Rx Instructions .Route 01/15/25 tablet (Farxiga) .COMPLEX #30 tabs furosemide 40 mg tablet See Rx Instructions .Route 01/27/25 .COMPLEX #30 tabs potassium chloride 20 mEq See Rx Instructions .Route 03/09/25 tablet,extended release(part/cryst) .COMPLEX #30 tabs ropinirole 0.5 mg tablet 0.5 mg PO .qhs #30 tabs 03/25/25 Allergies Allergy/AdvReac Type Severity Reaction Status Date / Time hydrocodone Allergy ADR-Vomitin Verified 03/25/25 11:48 g tramadol Allergy ADR-Itching Verified 03/25/25 11:48 Review of Systems Resp: Reports: dyspnea [facility] ED PFSH: Medical History Respiratory failure requiring intubation Chronic hypercapnic respiratory failure Upper GI bleeding TIA (transient ischemic attack) Dependence on supplemental oxygen HTN (hypertension) Acute exacerbation of chronic obstructive airways disease Tenosynovitis of foot Fracture of fifth metatarsal bone of right foot Gastroesophageal reflux disease Hypertension Anxiety COPD (chronic obstructive pulmonary disease) Surgical History Hx of tubal ligation History of tonsillectomy and adenoidectomy Hx of cholecystectomy Hx of hernia repair Hx of section Hx of colonoscopy (~2012) Family History Father Cancer lung Heart disease Mother Heart disease Social History Smoking and tobacco/nicotine status: current every day tobacco/nicotine user (has started back smoking) cigarettes Packs smoked per day: 0.5 Second hand smoke exposure: No Alcohol intake: former Former alcohol use details: sober x 20 yrs Substance/Drug Use: never Caregiver/support person: Yes Lives independently: Yes Household members: spouse and children Marital status: service: No Current occupational status: unemployed Current gender identity: Female Special lauryn needs: No Agree to transfusion: No Physical Exam Const: COMMON NORMALS: patient oriented x3 HENMT: COMMON NORMALS: normocephalic and atraumatic HEAD & SCALP: normocephalic and atraumatic Neck/C-Spine: COMMON NORMALS: full ROM and supple Chest: COMMONS NORMALS: normal inspection of the chest and normal palpation of entire chest wall Resp: COMMON NORMALS: normal respiratory effort, No retractions and No use of accessory muscles OTHER: mild wheezing Cardio: COMMON NORMALS: regular rhythm and No murmurs present (Cardio) RATE: tachycardic RHYTHM: regular rhythm GI: COMMON NORMALS: Normal to inspection, nondistended, normoactive bowel sounds present, Soft to palpation, non-tender and no masses PALPATION: Yes Soft to palpation Extremity: COMMON NORMALS: normal to inspection and full ROM Neuro: COMMON NORMALS: patient oriented x3, moves all extremities and no focal motor deficits Psych: COMMON NORMALS: mental status grossly normal, Normal thought process present and cooperative THOUGHT PROCESS: Normal thought process present Skin: COMMON NORMALS: no rashes or lesions noted and no wounds GENERAL SKIN EXAM: no rashes or lesions noted Course Vital Signs: Vital signs: Vital Signs Temperature 99 F 03/25/25 18:22 Pulse Rate 105 H 03/25/25 20:00 Respiratory Rate 14 03/25/25 19:27 Blood Pressure 96/72 03/25/25 20:00 Pulse Oximetry 90 03/25/25 20:00 Oxygen Delivery Me thod BiPAP 03/25/25 19:27 Oxygen Flow Rate 6 03/25/25 18:48 Fraction of Inspir ed Oxygen 40 03/25/25 18:53 MDM - Recheck/Abnormal Lab/Rx Medical Decision Making Patient presents here with COPD along with chronic hypercapnia. Patient is been well-appearing here she is at her baseline on her baseline oxygen in no distress. pH was normal does have elevated CO2 that is likely chronic in nature with her normal pH. Patient's had no confusion she feels improved after breathing treatment did give her Decadron as well. X-ray shows no pneumonia I feel she is stable for discharge she has BiPAP at home I instructed her she needs to use it. She is to follow-up with her PCP I did go over all her labs and imaging x-ray here only showed hyperinflation. I interpreted EKG showed sinus tach heart rate [address] elevation QRS 83 QTc 296. She is return if worsening she understands agrees to plan Medical Records I reviewed the patient's medical records. Lab Data I reviewed the patient's lab results. 03/25/25 18:50 03/25/25 18:50 Radiology Impressions Chest X-Ray 03/25/25 18:20 IMPRESSION: Hyperinflation suggestive of COPD emphysema no focal opacities. Laboratory Results WBC 8.91 10^3/uL (3.29-11.43) 03/25/25 18:50 RBC 4.51 10^6/uL (3.85-5.65) 03/25/25 18:50 Hgb 13.00 g/dL (11.27-16.99) 03/25/25 18:50 Hct 43.1 % (36-47) 03/25/25 18:50 MCV 95.6 fl (85-98) 03/25/25 18:50 MCH 28.8 pg (27-33) 03/25/25 18:50 MCHC 30.2 g/dL (30-55) 03/25/25 18:50 RDW 12.6 % (12.1-15.1) 03/25/25 18:50 Plt Count 176 10^3/cmm (157-399) 03/25/25 18:50 MPV 11.1 fL (7.4-10.4) H 03/25/25 18:50 Neut % (Auto) 67.0 % 03/25/25 18:50 Lymph % (Auto) 22.6 % 03/25/25 18:50 Foster % (Auto) 8.1 % 03/25/25 18:50 Eos % (Auto) 1.8 % 03/25/25 18:50 Baso % (Auto) 0.3 % 03/25/25 18:50 Neut # (Auto) 5.97 10^3/uL (1.8-7.7) 03/25/25 18:50 Lymph # (Auto) 2.0 10^3/uL (0.8-4.8) 03/25/25 18:50 Foster # (Auto) 0.7 10^3/uL (0.2-0.9) 03/25/25 18:50 Eos # (Auto) 0.2 10^3/uL (0.0-0.8) 03/25/25 18:50 Baso # (Auto) 0.0 10^3/uL (0.0-0.1) 03/25/25 18:50 Nucleated RBC % (auto) 0 % 03/25/25 18:50 Nucleated RBCs # 0.0 /100WBC 03/25/25 18:50 Specimen Type Arterial 03/25/25 20:00 Sample Site Brachial, right 03/25/25 20:00 ABG pH 7.46 (7.35-7.45) H 03/25/25 20:00 ABG pCO2 73.6 mmHg (35-45) H* 03/25/25 20:00 ABG pO2 58.0 mmHg (80.0-100.0) L 03/25/25 20:00 ABG PO2/FiO2 Ratio 145 03/25/25 20:00 ABG HCO3 51.6 mmol/L (22-26) H 03/25/25 20:00 ABG O2 Saturation 92.3 03/25/25 20:00 ABG Base Excess 23.1 mmol/L (-2.0-2.0) H 03/25/25 20:00 Braxton Test Pos 03/25/25 20:00 A-a O2 Gradient 18.1 mmHg (5-10) H 03/25/25 20:00 Hematocrit 39.7 % (37-47) 03/25/25 20:00 Hgb O2 Saturation 87.2 % (95-100) L 03/25/25 20:00 Carboxyhemoglobin 4.5 %THgb (0.4-20.1) 03/25/25 20:00 Methemoglobin 1.1 % (0.4-1.5) 03/25/25 20:00 Total Hemoglobin 13.0 g/dL (12-16) 03/25/25 20:00 Sodium 138.0 mmol/L (131-143) 03/25/25 20:00 Potassium 3.6 mmol/L (3.5-5.0) 03/25/25 20:00 Glucose 121.0 mg/dL (70-115) H 03/25/25 20:00 Ionized Calcium 1.1 mmol/L (1.1-1.4) 03/25/25 20:00 O2 Delivery Device Bipap 03/25/25 20:00 O2 Liters/Min 6.0 % 03/25/25 18:28 FiO2 40.0 % 03/25/25 20:00 Custom Harvester ID Bd 11/20/25 20:00 Sodium 138 mmol/L (136-145) 03/25/25 18:50 Potassium 3.5 mmol/L (3.5-5.1) 03/25/25 18:50 Chloride 83 mmol/L (98-107) L 03/25/25 18:50 Carbon Dioxide 46 mmol/L (22-29) H* 03/25/25 18:50 Anion Gap 12.5 (5-19) 03/25/25 18:50 BUN 13 mg/dL (6-20) 03/25/25 18:50 Creatinine 1.1 mg/dL (0.5-0.9) H 03/25/25 18:50 GFR Calculation 51.4 mL/min (90-130) L 03/25/25 18:50 Glucose 110 mg/dL (65-115) 03/25/25 18:50 Calculated Osmolality 287 mOsm/kg (285-295) 03/25/25 18:50 Calcium 9.3 mg/dL (8.5-10.5) 03/25/25 18:50 Total Bilirubin 0.3 mg/dL (0.15-1.2) 03/25/25 18:50 AST 11 U/L (0-32) 03/25/25 18:50 ALT < 5 U/L (0-33) 03/25/25 18:50 Alkaline Phosphatase 105 U/L (35-105) 03/25/25 18:50 NT-Pro-B Natriuret Pep 46 pg/mL (0-125) 03/25/25 18:50 Total Protein 7.2 g/dL (6.6-8.7) 03/25/25 18:50 Albumin 4.2 g/dL (3.5-5.2) 03/25/25 18:50 Globulin 3.0 g/dL (1.3-4.6) 03/25/25 18:50 All radiology interpretation(s) finalized by discharge EKG Data EKG 1: I personally reviewed and interpreted this EKG as follows: EKG interpretation date: 03/25/25 EKG interpretation time: 18:29 Interpretation: sinus tach hr [address] elevation qrs 83 qtc 296 Discharge Plan Discharge Patient Disposition: Home Clinical Impression: COPD (chronic obstructive pulmonary disease), Chronic hypercapnia Condition: Stable Prescriptions: No Action sennosides [Senna Lax] 8.6 mg tablet 8.6 mg PO BID PRN (Reason: Constipation) Qty: 60 2RF arformoterol 15 mcg/2 mL solution for nebulization 15 mcg inhalation BID budesonide [Pulmicort] 1 mg/2 mL suspension for nebulization 1 mg inhalation BID Yupelri 175 mcg/3 mL solution for nebulization 175 mcg inhalation DAILY PRN (DME) Portable Oxygen Concentrator 2-4L/NC See Rx Instructions .Route .MEDSUPPLY Qty: 1 0RF Rx Instructions: Continuous oxygen at 2-4L/NC. budesonide-formoterol [Symbicort] 160-4.5 mcg/actuation HFA aerosol inhaler 2 inh inhalation BID Qty: 10.2 5RF tiotropium bromide [Spiriva with HandiHaler] 18 mcg capsule, w/inhalation device 1 cap inhalation DAILY Qty: 60 5RF Rx Instructions: puncture 1 cap using device; one dose = 2 inhalations albuterol sulfate 2.5 mg /3 mL (0.083 %) solution for nebulization 2.5 mg inhalation QID PRN (Reason: Shortness Of Breath Or Wheezing) Qty: 180 5RF ropinirole 0.5 mg tablet 0.5 mg PO .qhs Qty: 30 2RF pantoprazole 40 mg tablet,delayed release (DR/EC) See Rx Instructions .ROUTE .COMPLEX Qty: 60 1RF Dose Instruction: TAKE ONE TABLET BY MOUTH TWICE DAILY Rx Instructions: TAKE ONE TABLET BY MOUTH TWICE DAILY albuterol sulfate [Ventolin HFA] 90 mcg/actuation HFA aerosol inhaler 2 puff inhalation QID PRN (Reason: Shortness Of Breath) Qty: 8.5 5RF dapagliflozin propanediol [Farxiga] 10 mg tablet See Rx Instructions .ROUTE .COMPLEX Qty: 30 1RF Dose Instruction: TAKE ONE TABLET BY MOUTH DAILY Rx Instructions: TAKE ONE TABLET BY MOUTH DAILY bupropion HCl 150 mg tablet extended release 24 hr See Rx Instructions .ROUTE .COMPLEX Qty: 30 1RF Dose Instruction: TAKE ONE TABLET BY MOUTH EVERY MORNING Rx Instructions: TAKE ONE TABLET BY MOUTH EVERY MORNING furosemide 40 mg tablet See Rx Instructions .ROUTE .COMPLEX Qty: 30 0RF Dose Instruction: TAKE 1/2 TABLET BY MOUTH DAILY AT 8:00 a.m. NEEDED FOR EDEMA Rx Instructions: TAKE 1/2 TABLET BY MOUTH DAILY AT 8:00 a.m. NEEDED FOR EDEMA potassium chloride 20 mEq tablet,ER particles/crystals See Rx Instructions .ROUTE .COMPLEX Qty: 30 0RF Dose Instruction: TAKE ONE TABLET BY MOUTH DAILY Rx Instructions: TAKE ONE TABLET BY MOUTH DAILY Discharge Orders: Discharge ED (Routine); Ordered 03/25/25 Ordered By: Lo Son Referrals: Marion Gastelum MD [Primary Care Provider, [facility]] - 4-7 days Discharge Diet: Advance as tolerated Discharge Activity: Resume usual activity Patient Instructions: COPD (Chronic Obstructive Pulmonary Disease) (ED) Print Language: Czech Coding Level of Care Code ED Cutter First for Vishal Badillo
[2025-03-25 18:39] LABS: ABG PH Result 7.44 (7.35-7.45); Arterial Blood Gas Hematocrit 39.4 % (37-47); Blood Gas Allen Test Pos; Blood Gas LPM 6.0 %; Blood Gas Operator Identificat WALCI; Blood Gas Sample Site Radial, right; Blood Gas Sample Type Arterial; Carboxyhemoglobin 5.3 %THgb (0.4-20.1); HCO3 ABG 50.8 mmol/L (22-26); Methemoglobin 1.2 % (0.4-1.5); PO2 ABG 68.5 mmHg (80.0-100.0)
[2025-03-25 18:40] LABS: ABG PCO2 75.5 mmHg (35-45)
[2025-03-25 18:57] LABS: Hematocrit 43.1 % (36-47); Hemoglobin 13.00 g/dL (11.27-16.99); Mean Corpuscular HGB Conc 30.2 g/dL (30-55); Mean Corpuscular Hemoglobin 28.8 pg (27-33); Mean Corpuscular Volume 95.6 fl (85-98); Nucleated Red Blood Cells % 0 %; Platelet Count 176 10^3/cmm (157-399); Red Blood Count 4.51 10^6/uL (3.85-5.65); White Blood Count 8.91 10^3/uL (3.29-11.43)
[2025-03-25 19:31] LABS: Alanine Aminotransferase < 5 U/L (0-33); Albumin Level 4.2 g/dL (3.5-5.2); Alkaline Phosphatase 105 U/L (35-105); Blood Urea Nitrogen 13 mg/dL (6-20); Calcium 9.3 mg/dL (8.5-10.5); Chloride 83 mmol/L (98-107); Globulin 3.0 g/dL (1.3-4.6); Glucose 110 mg/dL (65-115); NT Pro B Type Natriuretic Pept 46 pg/mL (0-125); Osmolality Calculated 287 mOsm/kg (285-295); Sodium 138 mmol/L (136-145); Total Protein 7.2 g/dL (6.6-8.7)
[2025-03-25 19:37] LABS: Anion Gap 12.5 (5-19); Potassium 3.5 mmol/L (3.5-5.1)
[2025-03-25 19:38] LABS: Aspartate Amino Transferase 11 U/L (0-32); Carbon Dioxide 46 mmol/L (22-29)
[2025-03-25 20:09] LABS: ABG PH Result 7.46 (7.35-7.45); Alveolar-Arterial Oxygen Gradi 18.1 mmHg (5-10); Arterial Blood Gas Hematocrit 39.7 % (37-47); Blood Gas Allen Test Pos; Blood Gas Operator Identificat BD; Blood Gas Sample Site Brachial, right; Blood Gas Sample Type Arterial; Carboxyhemoglobin 4.5 %THgb (0.4-20.1); Glucose Level-ABG 121.0 mg/dL (70-115); HCO3 ABG 51.6 mmol/L (22-26); Ionized Calcium Level - ABG 1.1 mmol/L (1.1-1.4); Methemoglobin 1.1 % (0.4-1.5); Oxygen Saturation ABG 92.3; PO2 ABG 58.0 mmHg (80.0-100.0); PO2 FiO2 Ratio Arterial Blood 145; Potassium Level - ABG 3.6 mmol/L (3.5-5.0); Sodium Level - ABG 138.0 mmol/L (131-143)
[2025-03-25 20:10] LABS: ABG PCO2 73.6 mmHg (35-45)
== END 2025-03-25 20:36 | disposition home or self-care (01) ==
PROVIDERS: Emergency Provider Emergency Medicine; PCP Family Medicine
DX: J44.9 Chronic obstructive pulmonary disease, unspecified (principal); R06.89 Other abnormalities of breathing; F17.210 Nicotine dependence, cigarettes, uncomplicated; I10 Essential (primary) hypertension; Z86.73 Personal history of transient ischemic attack (TIA), and cerebral infarction without residual deficits; Z99.81 Dependence on supplemental oxygen
CPT/HCPCS: 36415; 36600; 71045; 80051; 80053; 82330; 82805; 83880; 85025; 93005; 94640; 94660; 96374; 99285; J1100; J9999

== ENCOUNTER → 2025-03-29 09:32 | Outpatient (BNVA) | payer MEDICAID, SELFPAY | PROVIDERS: PCP Family Medicine; Referring Provider Family Medicine; Visit Provider Internal Medicine | DX: J44.1 Chronic obstructive pulmonary disease with (acute) exacerbation (principal); J96.12 Chronic respiratory failure with hypercapnia; Z99.81 Dependence on supplemental oxygen; F17.210 Nicotine dependence, cigarettes, uncomplicated; J44.9 Chronic obstructive pulmonary disease, unspecified | CPT/HCPCS: 99204; 99214 ==